=== PATIENT | female | born 1970 | race African-American/Black ===

== ENCOUNTER 2022-05-24 15:25 | Outpatient (CLI) | payer OTHER, SELFPAY ==
[2022-05-24 18:46] LABS: Cholesterol 139 mg/dL (0-200); HDL Direct 46 mg/dL; Triglycerides 173 mg/dL (<150)
[2022-05-24 18:57] LABS: LDL Cholesterol Direct 39 mg/dL
[2022-05-24 20:23] LABS: Hemoglobin A1C 5.1 % (<5.7)
== END 2022-05-24 15:26 | disposition home or self-care (01) ==
LOC: ANHGOSHLAB 15:27
PROVIDERS: PCP Family Medicine; Visit Provider Family Medicine
DX: E66.3 Overweight (principal); E78.2 Mixed hyperlipidemia
CPT/HCPCS: 36415; 80061; 83036

== ENCOUNTER 2022-06-23 01:10 | Day surgery (SDC) | payer MEDICARE, OTHER, SELFPAY ==
[2022-06-09 13:58] VITALS: BMI 29.0
--- NOTE | 2022-06-22 16:21 | PM.HPGS ---
History of Present Illness History of Present Illness Consent: Risks, benefits, and alternatives have been discussed and questions answered. Patient agrees to proceed with procedure. Chief complaint: neoplasm screening Narrative: Umesh Miller is a 51 year old female referred for colon cancer screening. Review of Systems Review of Systems: All systems reviewed & are unremarkable except as noted in HPI and below PMFSH Past Medical History Medical History Chronic kidney disease, stage 5, kidney failure Chronic lupus nephritis Glomerular disorders in diseases classified elsewhere History of 2019 novel coronavirus disease (COVID-19) Hx of blood clots Hypertensive chronic kidney disease with stage 1 through stage 4 chronic kidney disease, or unspecified chronic kidney disease Intractable migraine without aura and without status migrainosus Family History Family History Mother Hypertension Father Family history of type 2 diabetes mellitus Family history of heart disease in male family member before age 55 Social History Social History Smoking status: Never smoker Second hand tobacco smoke exposure: No Alcohol intake: never Substance use type: does not use Living arrangements: alone Spiritual care concerns: No Meds Home Medications and Allergies Home Medications Medication Instructions Recorded Confirmed Type atorvastatin 20 mg tablet 20 mg PO DAILY 09/25/19 06/23/22 History cholecalciferol (vitamin D3) 50 2,000 unit PO DAILY 10/02/19 06/23/22 History mcg (2,000 unit) tablet prednisolone 5 mg tablet 5 mg PO DAILY 10/02/19 06/23/22 History tacrolimus 1 mg capsule, 1 mg PO Q12H 10/02/19 06/23/22 History immediate-release furosemide 80 mg tablet 80 mg PO BID 05/24/22 06/23/22 History carvedilol 25 mg tablet 25 mg PO BID 06/09/22 06/23/22 History cetirizine 10 mg tablet 10 mg PO DAILY PRN Allergy Symptoms 06/09/22 06/23/22 History diltiazem HCl 120 mg 120 mg PO DAILY 06/09/22 06/23/22 History capsule,extended release 12 hr doxazosin 8 mg tablet 8 mg PO DAILY 06/09/22 06/23/22 History Allergies Allergy/AdvReac Type Severity Reaction Status Date / Time CHRIST Inhibitors Allergy Intermediate SWELLING Verified 06/23/22 08:23 ibuprofen Allergy Intermediate UNABLE TO Verified 06/23/22 08:23 TAKE WITH LUPUS NEPHRITIS lisinopril Allergy Unknown Unknown Verified 06/23/22 08:23 Penicillins Allergy Unknown Unknown Verified 06/23/22 08:23 Exam Const: General: alert Orientation/consciousness: patient oriented x3 Resp: Auscultation: clear to auscultation bilaterally Cardio: Rhythm: regular rhythm GI: GI Palp: Yes Soft to palpation and No Tenderness to palpation present (GI) Neuro: General: patient oriented x3 Assessment and Plan Assessment and plan (1) Colon cancer screening: Code(s): Z12.11 - Encounter for screening for malignant neoplasm of colon Status: Acute Assessment and Plan: Colonoscopy with possible biopsy or polypectomy or cautery or injection of substances.
[2022-06-23 08:15] VITALS: BP 114/67; PULSE 74; RESP 18; TEMP 36.1; O2SAT 100; BMI 28.4
[2022-06-23] MEDS: SODIUM CHLORIDE 0.9% IV 500 ML 100 ML IV CONT (08:46)
--- NOTE | 2022-06-23 09:15 | WPDANESEPPF ---
Anes - Initial Pre Proc Eval Procedure: Operation Date: 06/23/22 09:30 Proposed Procedures p Screening Colonoscopy - Dheeraj Kilpatrick MD Date/Time: 06/23/22 09:15 Surgeon: Dheeraj Kilpatrick MD Pre Op Diagnosis: neoplasm screening Patient Data Age: 51 Gender: F Height: 1.57 m Weight: 70.6 kg Last Vital Signs Temp 97.0 F L 06/23/22 08:15 Pulse 74 06/23/22 08:15 Resp 18 06/23/22 08:15 BP 114/67 06/23/22 08:15 Pulse Ox 100 06/23/22 08:15 O2 Del Method Room Air 06/23/22 08:15 Allergies Allergy/AdvReac Type Severity Reaction Status Date / Time CHRIST Inhibitors Allergy Intermediate SWELLING Verified 06/23/22 08:23 ibuprofen Allergy Intermediate UNABLE TO Verified 06/23/22 08:23 TAKE WITH LUPUS NEPHRITIS lisinopril Allergy Unknown Unknown Verified 06/23/22 08:23 Penicillins Allergy Unknown Unknown Verified 06/23/22 08:23 Home Medications Medication Instructions Recorded Confirmed Type atorvastatin 20 mg tablet 20 mg PO DAILY 09/25/19 06/23/22 History cholecalciferol (vitamin D3) 50 2,000 unit PO DAILY 10/02/19 06/23/22 History mcg (2,000 unit) tablet prednisolone 5 mg tablet 5 mg PO DAILY 10/02/19 06/23/22 History tacrolimus 1 mg capsule, 1 mg PO Q12H 10/02/19 06/23/22 History immediate-release furosemide 80 mg tablet 80 mg PO BID 05/24/22 06/23/22 History carvedilol 25 mg tablet 25 mg PO BID 06/09/22 06/23/22 History cetirizine 10 mg tablet 10 mg PO DAILY PRN Allergy Symptoms 06/09/22 06/23/22 History diltiazem HCl 120 mg 120 mg PO DAILY 06/09/22 06/23/22 History capsule,extended release 12 hr doxazosin 8 mg tablet 8 mg PO DAILY 06/09/22 06/23/22 History Patient hx anesthesia problems: none Family hx anesthesia problems: none Results Review: All pre-operative results and documents have been reviewed as part of the pre-operative evaluation. [facility] Past Medical History Medical History Chronic kidney disease, stage 5, kidney failure Chronic lupus nephritis Glomerular disorders in diseases classified elsewhere History of 2019 novel coronavirus disease (COVID-19) Hx of blood clots Hypertensive chronic kidney disease with stage 1 through stage 4 chronic kidney disease, or unspecified chronic kidney disease Intractable migraine without aura and without status migrainosus Family History Family History Mother Hypertension Father Family history of type 2 diabetes mellitus Family history of heart disease in male family member before age 55 Social History Social History Smoking status: Never smoker Second hand tobacco smoke exposure: No Alcohol intake: never Substance use type: does not use Living arrangements: alone Spiritual care concerns: No Anes - Eval Final PreProcedure Day of Procedure 06/23/22 09:15 Patient weight: overweight Heart: regular rate and rhythm Lungs: clear to auscultation Airway: Mallampati scale class II Neurological: alert and oriented Last oral intake: >/= 8 hours ASA classification: III Emergent: no Anesthetic plan: proceed Anesthesia type and monitoring: general GIVS and standard monitoring Results Review: All pre-operative results and documents have been reviewed as part of the pre-operative evaluation. Informed Consent: The patient's anesthetic plan and its attendant risks and benefits were discussed with the patient/family/POA. Questions were solicited and answers provided to the satisfaction of the patient/family/POA.
[2022-06-23 09:50] VITALS: BP 86/54; PULSE 65; RESP 15; O2SAT 100
[2022-06-23 10:00] VITALS: BP 82/46; PULSE 77; RESP 23; O2SAT 100
[2022-06-23 10:10] VITALS: BP 95/42; PULSE 74; RESP 16; O2SAT 100
[2022-06-23 10:14] VITALS: BP 108/87; O2SAT 100
== END 2022-06-23 10:25 | disposition home or self-care (01) ==
PROVIDERS: PCP Family Medicine; Visit Provider Internal Medicine Gastroenterology
PROC: 0DJD8ZZ Inspection of Lower Intestinal Tract, Via Natural or Artificial Opening Endoscopic (ICD-10-PCS; CPT 45378; principal; 2022-06-23 09:30)
DX: Z12.11 Encounter for screening for malignant neoplasm of colon (principal); D12.0 Benign neoplasm of cecum; D12.4 Benign neoplasm of descending colon; D12.3 Benign neoplasm of transverse colon; K64.8 Other hemorrhoids; M32.14 Glomerular disease in systemic lupus erythematosus; Z86.16 Personal history of COVID-19; I12.0 Hypertensive chronic kidney disease with stage 5 chronic kidney disease or end stage renal disease; N18.5 Chronic kidney disease, stage 5
CPT/HCPCS: 45385; 45381; 45380; 88305; J2704; J7040

== ENCOUNTER 2022-09-11 04:41 | Emergency (ER) | payer MEDICARE, OTHER, SELFPAY ==
--- NOTE | ~2022-09-11 | XR_ITS ---
EXAMINATION: XR knee LT 3V DATE: 09/11/2022 06:01 INDICATION: Left knee pain TECHNIQUE: Three views of the left knee were obtained. COMPARISON: None. FINDINGS: Alignment is normal. No fractures identified. Joint spaces are normal with no erosions. Th ere is a moderate size knee joint effusion. There is medial soft tissue swelling of the knee. IMPRESSION: 1. Medial soft tissue swelling of the knee and moderate size joint effusion without acute osseous abn ormality identified. Reviewed, dictated and finalized at location A. [facility] IMPRESSION: 1. Medial soft tissue swelling of the knee and moderate size joint effusion wit hout acute osseous abnormality identified.
[2022-09-11 04:48] VITALS: BP 166/81; PULSE 77; RESP 17; TEMP 36.7; O2SAT 96
--- NOTE | 2022-09-11 05:35 | ED.GENADULT ---
HPI - General Adult General Chief complaint: Extremity Injury, Lower Stated complaint: fall, left leg pain Time Seen by Provider: 09/11/22 04:47 History of Present Illness HPI narrative: 52-year-old female presenting the emergency department for evaluation of an injury to her left knee. Patient states that she injured her knee while walking on carpet. She felt a pop in the left lateral aspect of her left knee. Patient states initially she was able to walk on it but the pain has continued to worsen. Related Data Home Medications Medication Instructions Recorded Confirmed atorvastatin 20 mg tablet 20 mg PO DAILY 09/25/19 09/13/22 cholecalciferol (vitamin D3) 50 2,000 unit PO DAILY 10/02/19 09/13/22 mcg (2,000 unit) tablet prednisolone 5 mg tablet 5 mg PO DAILY 10/02/19 09/13/22 tacrolimus 1 mg capsule, 1 mg PO Q12H 10/02/19 09/13/22 immediate-release furosemide 80 mg tablet 80 mg PO BID 05/24/22 09/13/22 carvedilol 25 mg tablet 25 mg PO BID 06/09/22 09/13/22 cetirizine 10 mg tablet 10 mg PO DAILY PRN Allergy Symptoms 06/09/22 09/13/22 diltiazem HCl 120 mg 120 mg PO DAILY 06/09/22 09/13/22 capsule,extended release 12 hr doxazosin 8 mg tablet 8 mg PO DAILY 06/09/22 09/13/22 biotin 10,000 mcg capsule mcg PO 08/02/22 09/13/22 multivitamin and minerals tablet PO 09/12/22 09/13/22 no.11-folic acid 5 mg tablet (Dialyvite 5000) Allergies Allergy/AdvReac Type Severity Reaction Status Date / Time lisinopril Allergy Severe Swelling Verified 09/13/22 10:37 of Lip/Tongue/Throat Penicillins Allergy Severe Swelling Verified 09/13/22 10:37 of Lip/Tongue/Throat CHRIST Inhibitors Allergy Intermediate SWELLING Verified 09/13/22 10:37 ibuprofen Allergy Intermediate UNABLE TO Verified 09/13/22 10:37 TAKE WITH LUPUS NEPHRITIS Review of Systems Review of Systems: CONSTITUTIONAL: Denies fever, chills, or sweats. EYES: Denies visual changes, redness, or discharge. ENT: Denies rhinorrhea, congestion, sore throat, or otalgia. CARDIOVASCULAR: Denies chest pain, palpitations, or edema. RESPIRATORY: Denies cough or dyspnea. GASTROINTESTINAL: Denies abdominal pain, nausea, vomiting, or diarrhea. GENITOURINARY: Denies dysuria or hematuria. SKIN: Denies rash or itching. MUSCULOSKELETAL: Left knee pain, see HPI NEUROLOGIC: Denies headache, numbness, or weakness. [facility] Past Medical History Medical History Abnormal Pap smear of cervix 07/14/15 lgsil ; 05/08/14 lgsil; 10/16/12 ASCUS / +HPV Allergies Anemia Chronic kidney disease, stage 5, kidney failure Chronic lupus nephritis Dialysis patient renal failure Glomerular disorders in diseases classified elsewhere High cholesterol History of 2019 novel coronavirus disease (COVID-19) History of endometrial biopsy (~01/23/16) menometrorrhagia 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 Hx of blood clots (~12/2012) 3 rt leg, 2 rt arm Hypertensive chronic kidney disease with stage 1 through stage 4 chronic kidney disease, or unspecified chronic kidney disease Intractable migraine without aura and without status migrainosus Screening mammogram, encounter for Trichomonas vaginalis (TV) infection (05/04/16) Surgical History Surgical History H/O LEEP 12/31/15 HGSIL TRAVIS II History of colposcopy with cervical biopsy 12/13/12 TRAVIS I 09/02/15 TRAVIS II 12/09/15 HGSIL History of dilation and curettage (08/03/15) hscope d&c/Novasure endometrial ablation History of elective x2 History of endometrial ablation (08/03/15) hscope d&c/Novasure endometrial ablation History of laparoscopy (03/23/05) dx lap, chromopertubation - bilateral salpinx, pelvic adhesions, left ovarian enlargement, bilaterally blocked fallopian tubes History of left salpingo-oophorectomy (08/31/15) EXP LAP, LSO, ADHESIOLYSIS left dermoid cyst, left & right hydrosalpin
--- NOTE | 2022-09-11 05:50 | PC.NURSE ---
RONEN norco 5/325mg per erp dr [place]
[2022-09-11] MEDS: HYDROcodone/acetaminophen (*CRX) 5-325 MG TABLET 1 TAB PO (05:54)
== END 2022-09-11 06:16 | disposition home or self-care (01) ==
PROVIDERS: Emergency Provider Emergency Medicine; PCP Family Medicine
DX: S89.92XA Unspecified injury of left lower leg, initial encounter (principal); I12.0 Hypertensive chronic kidney disease with stage 5 chronic kidney disease or end stage renal disease; N18.5 Chronic kidney disease, stage 5; M32.14 Glomerular disease in systemic lupus erythematosus; E78.00 Pure hypercholesterolemia, unspecified; Z99.2 Dependence on renal dialysis; Z86.2 Personal history of diseases of the blood and blood-forming organs and certain disorders involving the immune mechanism; Z90.710 Acquired absence of both cervix and uterus; Z94.0 Kidney transplant status; X50.9XXA Other and unspecified overexertion or strenuous movements or postures, initial encounter
CPT/HCPCS: 73562; 99283; A9270

== ENCOUNTER 2022-09-19 14:57 | Outpatient (RCR) | payer MEDICARE, OTHER, SELFPAY ==
--- NOTE | 2022-09-19 17:01 | PTOPEVAL1 ---
Assessment and note entered by Ruben Sher, PT Evaluation Information Assessment Status Evaluation Diagnosis L knee pain Onset 2021 Subjective Information Patient got her foot stuck under her rug and fell in her home. Patient went to the ER where they gave her a knee immobilizer and crutches. She was able to see an orthopedic doctor on Monday and they took away the crutches and knee immobilizer and told her to move the knee. She returned to work although she admits she has been back at work with a reduced activity amount without any pain. Patient reports she has been icing her knee and is feeling well. Reported Pain Level Pain Score 0: Self Report Additional Pain Score Comments no pain prior to evaluation or after evaluation and exercises. Assessment PT Clinical Summary Umesh is a 52 year old female coming into the clinic for L knee pain. She was negative for all special tests applied to the knee. Does have some knee flexion weakness and decreased patellar mobility, but in no pain. Patient sent home with HEP and will do that for 2 weeks along with return to normal job responsibilities. If no pain will discharge if some discomfort will adapt home exercise program to any new signs or symptoms Plan of Care Interventions Electrical Stimulation,Gait Training,Hot Pack/Cold Pack,Manual Therapy,Neuro Re-education,Patient/ Caregiver Education,Therapeutic Activities, Therapeutic Exercise,Ultrasound PT Services Indicated Yes Treatment Frequency and 1x/2weeks then reevaluation Duration These treatments will address the objective and functional deficits as defined above. The patient will be advanced safely and appropriately in order for the patient to progress towards his/her prior level of function. Additional exercises will be introduced and as well as a comprehensive home exercise program upon discharge, if needed, ?to ensure carryover of functional gains achieved in the clinic. This treatment plan has been reviewed and agreement upon by the patient.
--- NOTE | 2022-10-03 10:38 | PTOPDC ---
Assessment and note entered by Ruben Sher, PT Evaluation Information Assessment Status Discharge - Pt Not Presen Diagnosis L knee pain Onset 2021 Subjective Information Patient reports that she has not been consistently doing her exercises everyday, but has been doing them. She also states she is not having trouble with stairs, pain, or any other functional mobility issues at work. She reports she is walking better than she did prior to the accident. Patient feels that she is okay and does not need to do therapy besides the HEP given to her on Sep 19. Reported Pain Level Pain Score 0: Self Report Additional Pain Score Comments no pain at home or at work. Assessment PT Clinical Summary Umesh is a 52 year old female that came into the clinic with L knee pain, which she reports had been feeling and she feels healed up since she scheduled the appointment until she had her evaluation, with the exercises given to the patient to do at home she reports no pain with activities around the home or at work. She feels okay to be discharged from physical therapy and to continue her HEP. Plan of Care PT Services Indicated No Treatment Frequency and discharge from therapy services. Duration
== END 2022-12-05 08:40 | disposition home or self-care (01) ==
LOC: ANHPT 14:57
PROVIDERS: PCP Family Medicine; Visit Provider Nurse Practitioner
DX: M25.562 Pain in left knee (principal)
CPT/HCPCS: 97110; 97161

== ENCOUNTER → 2023-05-30 13:28 | Outpatient (CLI) | payer MEDICARE, OTHER, SELFPAY ==
--- NOTE | ~2023-05-30 | US_ITS ---
EXAMINATION: US thyroid DATE: 05/30/2023 13:45 INDICATION: Nontoxic goiter TECHNIQUE: Multiple ultrasound images of the thyroid were obtained. COMPARISON: None. FINDINGS: The right thyroid lobe measures 4.2 x 1.9 x 2.0 cm. The left thyroid lobe measures 5.1 x 2.2 x 2.2 c m. There are a few scattered small thyroid nodules. The largest is a 1.1 cm wider than tall predomina tely solid hypoechoic nodule in the left thyroid lobe with ill-defined margins (TI-RADS 4, moderately suspicious , FNA if >=1.5 cm, annual followup is >=1 cm). The next largest is a wide than tall 8 mm mixed solid and cystic nodule with hypoechoic solid component and smooth margins (TI-RADS 3, mildly s uspicious , FNA if >=2.5 cm, annual followup is >=1.5 cm). There are a couple additional 5 mm nodules in the left and right thyroid lobes. IMPRESSION: 1. Multinodular goiter. Recommend annual ultrasound follow-up for the 1.1 cm left thyroid nodule. Reviewed, dictated and finalized at location L. IMPRESSION: 1. Multinodular goiter. Recommend annual ultrasound follow-up for the 1.1 cm le ft thyroid nodule.
== END ==
PROVIDERS: PCP Family Medicine; Visit Provider Family Medicine
DX: E04.9 Nontoxic goiter, unspecified (principal)
CPT/HCPCS: 76536

== ENCOUNTER 2024-08-09 04:17 | Day surgery (SDC) | payer MEDICARE, OTHER, SELFPAY ==
[2024-07-29 10:53] VITALS: BMI 25.7
[2024-08-09 09:34] VITALS: BP 142/71; PULSE 61; RESP 20; TEMP 36; O2SAT 100; BMI 25.2
[2024-08-09] MEDS: SODIUM CHLORIDE 0.9% IV 500 ML 10 ML IV CONT (09:45)
--- NOTE | 2024-08-09 10:30 | WPDANESEPPF ---
Anes - Initial Pre Proc Eval Procedure: Operation Date: 08/09/24 11:00 Proposed Procedures p Colonoscopy - Javier Louis MD Date/Time: 08/09/24 10:30 Surgeon: Javier Louis MD Pre Op Diagnosis: hem of anus and rectum Patient Data Age: 54 Gender: F Height: 1.6 m Weight: 64.5 kg Last Vital Signs Temp 96.8 F L 08/09/24 09:34 Pulse 61 08/09/24 09:34 Resp 20 08/09/24 09:34 BP 142/71 H 08/09/24 09:34 Pulse Ox 100 08/09/24 09:34 O2 Del Method Room Air 08/09/24 09:34 Allergies Allergy/AdvReac Type Severity Reaction Status Date / Time lisinopril Allergy Severe Swelling Verified 08/09/24 09:33 of Lip/Tongue/Throat Penicillins Allergy Severe Swelling Verified 08/09/24 09:33 of Lip/Tongue/Throat CHRIST Inhibitors Allergy Intermediate SWELLING Verified 08/09/24 09:33 ibuprofen Allergy Intermediate UNABLE TO Verified 08/09/24 09:33 TAKE WITH LUPUS NEPHRITIS Home Medications Medication Instructions Recorded Confirmed Type cholecalciferol (vitamin D3) 50 2,000 unit PO DAILY 10/02/19 08/09/24 History mcg (2,000 unit) tablet prednisolone 5 mg tablet 5 mg PO DAILY 10/02/19 08/09/24 History tacrolimus 1 mg capsule, 1 mg PO Q12H 10/02/19 08/09/24 History immediate-release furosemide 80 mg tablet 80 mg PO BID 05/24/22 08/09/24 History cetirizine 10 mg tablet 10 mg PO DAILY PRN Allergy Symptoms 06/09/22 08/09/24 History diltiazem HCl 120 mg 120 mg PO DAILY 06/09/22 08/09/24 History capsule,extended release 12 hr doxazosin 8 mg tablet 8 mg PO DAILY 06/09/22 08/09/24 History biotin 10,000 mcg capsule 10,000 mcg PO DAILY 08/02/22 08/09/24 History multivitamin and minerals 1 tablet PO DAILY 09/12/22 08/09/24 History no.11-folic acid 5 mg tablet (Dialyvite 5000) atorvastatin 20 mg tablet 20 mg PO DAILY #90 tabs 02/08/24 08/09/24 Rx carvedilol 25 mg tablet 25 mg PO BID #60 tabs 05/09/24 08/09/24 Rx Patient hx anesthesia problems: none Family hx anesthesia problems: none Results Review: All pre-operative results and documents have been reviewed as part of the pre-operative evaluation. [facility] Past Medical History Medical History Abnormal Pap smear of cervix 07/14/15 lgsil ; 05/08/14 lgsil; 10/16/12 ASCUS / +HPV Allergies Anemia Chronic kidney disease, stage 5, kidney failure Chronic lupus nephritis Dialysis patient renal failure Glomerular disorders in diseases classified elsewhere High cholesterol History of 2019 novel coronavirus disease (COVID-19) History of endometrial biopsy (~01/23/16) menometrorrhagia 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 Hx of blood clots (~12/2012) 3 rt leg, 2 rt arm Hypertensive chronic kidney disease with stage 1 through stage 4 chronic kidney disease, or unspecified chronic kidney disease Intractable migraine without aura and without status migrainosus Screening mammogram, encounter for Trichomonas vaginalis (TV) infection (05/04/16) Surgical History Surgical History H/O LEEP 12/31/15 HGSIL TRAVIS II History of colposcopy with cervical biopsy 12/13/12 TRAVIS I 09/02/15 TRAVIS II 12/09/15 HGSIL History of dilation and curettage (08/03/15) hscope d&c/Novasure endometrial ablation History of elective x2 History of endometrial ablation (08/03/15) hscope d&c/Novasure endometrial ablation History of laparoscopy (03/23/05) dx lap, chromopertubation - bilateral salpinx, pelvic adhesions, left ovarian enlargement, bilaterally blocked fallopian tubes History of left salpingo-oophorectomy (08/31/15) EXP LAP, LSO, ADHESIOLYSIS left dermoid cyst, left & right hydrosalpinx History of ovarian cystectomy (07/11/07) EXP LAP; RIGHT OVARIAN CYSTECTOMY, R PARTIAL SALPINGECTOMY - R Ovarian Cyst, R hydrosalpinx History of robot-assisted laparoscopic hysterectomy RA TLH w/RSO--HGSIL,
--- NOTE | 2024-08-09 10:42 | PM.HPGS ---
History of Present Illness History of Present Illness Consent: Risks, benefits, and alternatives have been discussed and questions answered. Patient agrees to proceed with procedure. Chief complaint: hem of anus and rectum Narrative: Umesh Miller is a 54 year old female with last colonoscopy 2 years ago, recently noted blood in stool Review of Systems Review of Systems: All systems reviewed & are unremarkable except as noted in HPI and below PMFSH Past Medical History Medical History (Updated 08/09/24 @ 10:45 by Javier Louis MD) Abnormal Pap smear of cervix 07/14/15 lgsil ; 05/08/14 lgsil; 10/16/12 ASCUS / +HPV Allergies Anemia Chronic kidney disease, stage 5, kidney failure Chronic lupus nephritis Dialysis patient renal failure Glomerular disorders in diseases classified elsewhere High cholesterol History of 2019 novel coronavirus disease (COVID-19) History of endometrial biopsy (~01/23/16) menometrorrhagia 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 Hx of blood clots (~12/2012) 3 rt leg, 2 rt arm Hypertensive chronic kidney disease with stage 1 through stage 4 chronic kidney disease, or unspecified chronic kidney disease Intractable migraine without aura and without status migrainosus Rectal bleeding Screening mammogram, encounter for Trichomonas vaginalis (TV) infection (05/04/16) Surgical History Surgical History H/O LEEP 12/31/15 HGSIL TRAVIS II History of colposcopy with cervical biopsy 12/13/12 TRAVIS I 09/02/15 TRAVIS II 12/09/15 HGSIL History of dilation and curettage (08/03/15) hscope d&c/Novasure endometrial ablation History of elective x2 History of endometrial ablation (08/03/15) hscope d&c/Novasure endometrial ablation History of laparoscopy (03/23/05) dx lap, chromopertubation - bilateral salpinx, pelvic adhesions, left ovarian enlargement, bilaterally blocked fallopian tubes History of left salpingo-oophorectomy (08/31/15) EXP LAP, LSO, ADHESIOLYSIS left dermoid cyst, left & right hydrosalpinx History of ovarian cystectomy (07/11/07) EXP LAP; RIGHT OVARIAN CYSTECTOMY, R PARTIAL SALPINGECTOMY - R Ovarian Cyst, R hydrosalpinx History of robot-assisted laparoscopic hysterectomy RA TLH w/RSO--HGSIL, ovarian cyst, leiomyoma History of total hysterectomy February 2017 Kidney transplant recipient (~08/2019) Family History Family History Mother Hypertension Father Family history of type 2 diabetes mellitus Family history of heart disease in male family member before age 55 Cerebrovascular accident Hypertension Diabetes mellitus Other Cancer Diabetes mellitus Hypertension Family history of heart disease in male family member before age 55 Social History Social History Smoking status: Never smoker Second hand tobacco smoke exposure: No Alcohol intake: never Substance use: never Substance use type: does not use Living arrangements: alone Additional living arrangements comments: Occupation/Education: occupation Additional 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 [employer] Gender identity (if verbalized by the patient): Female Sexual Orientation (if Verbalized by the Patient): Straight or Heterosexual Spiritual care concerns: No Meds Home Medications and Allergies Home Medications Medication Instructions Recorded Confirmed Type cholecalciferol (vitamin D3) 50 2,000 unit PO DAILY 10/02/19 08/09/24 History mcg (2,000 unit) tablet prednisolone 5 mg tablet 5 mg PO DAILY 10/02/19 08/09/24 History tacrolimus 1 mg capsule, 1 mg PO Q12H 10/02/19 08/09/24 History immediate-release furosemide 80 mg tablet 80 mg PO BID 05/24/22 08/09/24 History cetirizine 10 mg tablet 10 mg PO DAILY PRN Allergy Symptoms 06/09/22 08/09/24 History diltiazem HCl 120 mg 120 mg PO DA
[2024-08-09 11:36] VITALS: BP 152/71; PULSE 59; RESP 13; O2SAT 100
[2024-08-09 11:46] VITALS: BP 132/81; PULSE 60; RESP 16; O2SAT 96
[2024-08-09 11:56] VITALS: BP 147/68; PULSE 60; RESP 18; O2SAT 100
== END 2024-08-09 12:11 | disposition home or self-care (01) ==
PROVIDERS: PCP Family Medicine; Visit Provider Internal Medicine Gastroenterology
PROC: 0DJD8ZZ Inspection of Lower Intestinal Tract, Via Natural or Artificial Opening Endoscopic (ICD-10-PCS; CPT 45378; principal; 2024-08-09 11:00)
DX: D12.0 Benign neoplasm of cecum (principal); D12.2 Benign neoplasm of ascending colon; D12.3 Benign neoplasm of transverse colon; I12.0 Hypertensive chronic kidney disease with stage 5 chronic kidney disease or end stage renal disease; N18.5 Chronic kidney disease, stage 5; Z99.2 Dependence on renal dialysis; D63.1 Anemia in chronic kidney disease; M32.14 Glomerular disease in systemic lupus erythematosus; E78.00 Pure hypercholesterolemia, unspecified; Z86.718 Personal history of other venous thrombosis and embolism; Z94.0 Kidney transplant status; Z79.621 Long term (current) use of calcineurin inhibitor
CPT/HCPCS: 45385; 88305; J2003; J2704; J7040; J7050

== ENCOUNTER 2024-09-16 15:03 | Emergency (ER) | payer MEDICARE, OTHER, SELFPAY ==
[2024-09-16] VITALS (8 sets, daily range): BP systolic 102–152; BP diastolic 53–76; PULSE 69–87; RESP 14–20; TEMP 36.6–37.6; O2SAT 97–100
--- NOTE | 2024-09-16 16:26 | ED_ITS ---
HPI - Recheck/Abnormal Lab/Rx General Chief Complaint: Recheck/Abnormal Lab/Rx <Katherine Manuel PA-C - Last Filed: 09/16/24 16:40> Stated Complaint: I need a blood transfusion <JUAN Green Last Filed: 16:40> Time Seen by Provider: 09/16/24 16:26 <JUAN Green Last Filed: 09/16/24 16:40> Focused HPI: Patient is a 54 y/o female, with PMH of SLE, lupus nephritis, s/p renal transplant on Tacrolimus, ESRD on HD, who presents to the ED with c/o low hemoglobin. Patient receives hemodialysis Fridays. She sees Dr. Swain. states today at her normal appointment, she was told that her hemoglobin was 6.7 last Monday. She received her full dialysis treatment today and then was referred to the ED for further evaluation. Patient reports remote history of blood transfusions. She does admit that she has been feeling fatigued recently. Denies recent bleeding, rectal bleeding, melena, epistaxis. Patient had a colonoscopy 08/09 which was normal. GENERAL: Well-appearing, well-nourished, and in no acute distress. HEAD: Normocephalic, atraumatic. CHEST: Clear to auscultation. ?No respiratory distress. HEART: Regular rate and rhythm.? NEURO: ?Alert and oriented x3. Patient screened in triage and initial orders placed.? ?Additional care and dis position to be based upon?diagnostic testing and treatment. <JUAN Green Last Filed: 09/16/24 16:40> Focused HPI: Patient is a 54 y/o female, with PMH of SLE, lupus nephritis, s/p renal transplant on Tacrolimus, ESRD on HD, who presents to the ED with c/o low hemoglobin. Patient receives hemodialysis Fridays. She sees Dr. Swain. states today at her normal appointment, she was told that her hemoglobin was 6.7 last Monday. She received her full dialysis treatment today and then was referred to the ED for further evaluation. Patient reports remote history of blood transfusions. She does admit that she has been feeling fatigued recently. Denies recent bleeding, rectal bleeding, melena, epistaxis. Patient had a colonoscopy 08/09 which was normal. GENERAL: Well-appearing, well-nourished, and in no acute distress. HEAD: Normocephalic, atraumatic. CHEST: Clear to auscultation. ?No respiratory distress. HEART: Regular rate and rhythm.? NEURO: ?Alert and oriented x3. Patient screened in triage and initial orders placed.? ?Additional care and disposition to be based upon?diagnostic testing and treatment. <Belén Leigh PA-C - Last Filed: 09/16/24 20:47> Source: patient <JUAN Green Last Filed: 09/16/24 16:40> Mode of arrival: ambulatory <JUAN Green Last Filed: 09/16/24 16:40> Limitations: no limitations <JUAN Green Last Filed: 09/16/24 16:40> History of Present Illness HPI narrative: Agree with the above triage note. Patient reports last blood transfusion was in 2013. Denies history of transfusion reactions. States she had a viral URI approximately 2 weeks ago and is starting to feel better. States she had some blood in her stool over a month ago and had a colonoscopy which showed some polyps but otherwise was unremarkable. She states she has not had any blood in her stools for over a month. <Belén Leigh PA-C - Last Filed: 09/16/24 20:47> Related Data Home Medications: Home Medications Medication Instructions Recorded Confirmed cholecalciferol (vitamin D3) 50 2,000 unit PO DAILY 10/02/19 08/09/24 mcg (2,000 unit) tablet prednisolone 5 mg tablet 5 mg PO DAILY 10/02/19 08/09/24 tacrolimus 1 mg capsule, 1 mg PO Q12H 10/02/19 08/09/24 immediate-release furosemide 80 mg tablet 80 mg PO BID 05/24/22 08/09/24 cetirizine 10 mg tablet 10 mg PO DAILY PRN Allergy Symptoms 06/09/22 08/09/24 doxazosin 8 mg tablet 8 mg PO DAILY 06/09/22 08/09/24 biotin 10,000 mcg capsule 10,000 mcg PO DAILY 08/02/22 08/09/24 multivitamin and minerals 1 tablet PO DAILY 09/12/22 08/09/24 no.11-folic acid 5 mg tablet (Dialyvite 5000) <Katherine Manuel PA-C - Last Filed: 09/16/24 16:40> Allergies/Adverse Reactions: Allergies Allergy/AdvReac Type Severity Reaction Status Date / Time lisinopril Allergy Severe Swelling Verified 09/16/24 15:11 of Lip/Tongue/Throat Penicillins Allergy Severe Swelling Verified 09/16/24 15:11 of Lip/Tongue/Throat CHRIST Inhibitors Allergy Intermediate SWELLING Verified 09/16/24 15:11 ibuprofen Allergy Intermediate UNABLE TO Verified 09/16/24 15:11 TAKE WITH LUPUS NEPHRITIS <Katherine Manuel PA-C - Last Filed: 09/16/24 16:40> Review of Systems Review of Systems: All systems reviewed & are unremarkable except as noted in HPI and below <Belén Leigh PA-C - Last Filed: 09/16/24 20:47> [facility] Past Medical History Medical History: Medical History Abnormal Pap smear of cervix 07/14/15 lgsil ; 05/08/14 lgsil; 10/16/12 ASCUS / +HPV Allergies Anemia Chronic kidney disease, stage 5, kidney failure Chronic lupus nephritis Dialysis patient renal failure Glomerular disorders in diseases classified elsewhere High cholesterol History of 2019 novel coronavirus disease (COVID-19) History of endometrial biopsy (~01/23/16) menometrorrhagia 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 Hx of blood clots (~12/2012) 3 rt leg, 2 rt arm Hypertensive chronic kidney disease with stage 1 through stage 4 chronic kidney disease, or unspecified chronic kidney disease Intractable migraine without aura and without status migrainosus Rectal bleeding Screening mammogram, encounter for Trichomonas vaginalis (TV) infection (05/04/16) <Katherine Manuel PA-C - Last Filed: 09/16/24 16:40> Surgical History Surgical History: Surgical History H/O LEEP 12/31/15 HGSIL TRAVIS II History of colposcopy with cervical biopsy 12/13/12 TRAVIS I 09/02/15 TRAVIS II 12/09/15 HGSIL History of dilation and curettage (08/03/15) hscope d&c/Novasure endometrial ablation History of elective x2 History of endometrial ablation (08/03/15) hscope d&c/Novasure endometrial ablation History of laparoscopy (03/23/05) dx lap, chromopertubation - bilateral salpinx, pelvic adhesions, left ovarian enlargement, bilaterally blocked fallopian tubes History of left salpingo-oophorectomy (08/31/15) EXP LAP, LSO, ADHESIOLYSIS left dermoid cyst, left & right hydrosalpinx History of ovarian cystectomy (07/11/07) EXP LAP; RIGHT OVARIAN CYSTECTOMY, R PARTIAL SALPINGECTOMY - R Ovarian Cyst, R hydrosalpinx History of robot-assisted laparoscopic hysterectomy RA TL w/RSO--HGSIL, ovarian cyst, leiomyoma History of total hysterectomy February 2017 Kidney transplant recipient (~08/2019) <Katherine Manuel PA-C - Last Filed: 09/16/24 16:40> Family History Family History: Family History Mother Hypertension Father Family history of type 2 diabetes mellitus Family history of heart disease in male family member before age 55 Cerebrovascular accident Hypertension Diabetes mellitus Other Cancer Diabetes mellitus Hypertension Family history of heart disease in male family member before age 55 <Katherine Manuel PA-C - Last Filed: 09/16/24 16:40> Social History Social History: Social History Smoking status: Never smoker Second hand tobacco smoke exposure: No Alcohol intake: never Substance use: never Substance use type: does not use Living arrangements: alone Additional living arrangements comments: Occupation/Education: occupation Additional 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 HEAD: Normocephalic, atraumatic. EYES: EOMI. ENT: Nares clear, no rhinorrhea or epistaxis. Mucous membranes moist. NECK: Supple. CHEST: Clear to auscultation. No respiratory distress. HEART: Regular rate and rhythm. No murmur heard. Normal peripheral pulses. ABDOMEN: Soft, nontender, nondistended, normal active bowel sounds. EXTREMITIES: Normal range of motion. No edema. Hemodialysis fistula in the left upper extremity SKIN: Warm, dry, no rash. NEURO: No focal deficits. Alert and oriented x3 <Belén Leigh PA-C - Last Filed: 09/16/24 20:47> Course ENGINE PILOT/PA Physician Supervision For this patient encounter, I reviewed the ENGINE PILOT or PA documentation, treatment plan, and medical decision making; and I had [id number] time with this patient. <Can Camacho MD - Last Filed: 09/17/24 08:05> Vital Signs Vital signs: Vital Signs Temperature 98.3 F 09/16/24 15:05 Pulse Rate 87 09/16/24 15:05 Respiratory Rate 15 09/16/24 15:05 Blood Pressure 114/53 L 09/16/24 15:05 Pulse Oximetry 97 09/16/24 15:05 Oxygen Delivery Room Air 09/16/24 15:05 Temperature 97.8 F 09/16/24 20:31 Pulse Rate 69 09/16/24 20:31 Respiratory Rate 17 09/16/24 20:31 Blood Pressure 152/76 H 09/16/24 20:31 Pulse Oximetry 100 09/16/24 20:31 Oxygen Delivery Room Air 09/16/24 15:05 <Katherine Manuel PA-C - Last Filed: 09/16/24 16:40> Vital Signs Temperature 98.3 F 09/16/24 15:05 Pulse Rate 87 09/16/24 15:05 Respiratory Rate 15 09/16/24 15:05 Blood Pressure 114/53 L 09/16/24 15:05 Pulse Oximetry 97 09/16/24 15:05 Oxygen Delivery Room Air 09/16/24 15:05 Temperature 97.8 F 09/16/24 20:31 Pulse Rate 69 09/16/24 20:31 Respiratory Rate 17 09/16/24 20:31 Blood Pressure 152/76 H 09/16/24 20:31 Pulse Oximetry 100 09/16/24 20:31 Oxygen Delivery Room Air 09/16/24 15:05 <Belén Leigh PA-C - Last Filed: 09/16/24 20:47> Vital Signs Temperature 98.3 F 09/16/24 15:05 Pulse Rate 87 09/16/24 15:05 Respiratory Rate 15 09/16/24 15:05 Blood Pressure 114/53 L 09/16/24 15:05 Pulse Oximetry 97 09/16/24 15:05 Oxygen Delivery Room Air 09/16/24 15:05 Temperature 97.8 F 09/16/24 20:31 Pulse Rate 69 09/16/24 20:31 Respiratory Rate 17 09/16/24 20:31 Blood Pressure 152/76 H 09/16/24 20:31 Pulse Oximetry 100 09/16/24 20:31 Oxygen Delivery Room Air 09/16/24 15:05 <Can Camacho MD - Last Filed: 09/17/24 08:05> MDM - Recheck/Abnormal Lab/Rx MDM Narrative Medical decision making narrative: MSE by AGUSTIN in triage. <Katherine Manuel PA-C - Last Filed: 09/16/24 16:40> MSE by AGUSTIN in triage. 54-year-old female with history of of SLE, lupus nephritis, s/p renal transplant on Tacrolimus, ESRD on HD, who presents to the ED with c/o low hemoglobin. Patient reports some fatigue but is otherwise asymptomatic. She denies signs or symptoms of a GI bleed. Hemoglobin here 6.7 with normal MCV. Platelets are chronically low at 143. Her chemistries reveal hypokalemia of 2.3, chloride of 93, bicarb of 40. Creatinine consistent with CKD. Patient was given a unit of blood and states she feels better. No infusion reactions appreciated. I did consider giving potassium repletion, however given she had hemodialysis today has a history of CKD, expect this will increase naturally. Additionally potassium likely increased after blood transfusion given expected hemolysis. Advised to follow closely with her residential building inspector and discussed strict ED return precautions. She is agreeable with the plan verbalized understanding. Discharged in stable condition. <Belén Leigh PA-C - Last Filed: 09/16/24 20:47> Lab Data Result diagrams: 09/16/24 16:37 09/16/24 16:37 <Katherine Manuel PA-C - Last Filed: 09/16/24 16:40> Labs: Lab Results 09/16/24 Range/Units 16:37 WBC 6.6 (4.5-10.0) K/mm3 RBC 2.32 L (4.2-5.4) M/mm3 Hgb 6.7 L* (12.0-15.0) g/dL Hct 20.7 L* (37.0-47.0) % MCV 89.2 (80-100) fl MCH 28.9 (26-34) pg MCHC 32.4 (32-36) g/dl RDW 16.3 H (11.5-14.5) % Plt Count 143 L (150-375) k/mm3 MPV 10.3 (7.4-10.4) fl Immature Gran % (Auto) 0.3 (0-0.5) % Neut % (Auto) 81.0 H (45.5-73.1) % Lymph % (Auto) 7.9 L (18.3-44.2) % [place] % (Auto) 10.8 H (2.6-8.5) % Eos % (Auto) 0.0 (0-4.4) % Baso % (Auto) 0.0 L (0.2-1.2) % Lymph # (Auto) 0.52 L (0.9-3.2) K/mm3 [place] # (Auto) 0.7 H (0.1-0.6) K/mm3 Eos # (Auto) 0.0 (0-0.3) K/mm3 Baso # (Auto) 0.0 (0.0-0.1) K/mm3 Abs Immat Gran (auto) 0.02 (0.00-0.031) K/mm3 Absolute Neuts (auto) 5.3 (1.3-6.7) K/mm3 Absolute Nucleated RBC 0.000 (0.0-0.012) K/mm3 Nucleated RBC % 0.0 (0.0-0.2) % % Immature Plt Fraction 3.3 (0.9-11.2) % PT 14.5 (11.1-14.7) Seconds INR 1.1 APTT 29.9 (22.3-36.8) Seconds Sodium 135 L (137-145) mmol/L Potassium 2.8 L* (3.4-5.0) mmol/L Chloride 93 L (98-107) mmol/L Carbon Dioxide > 40 H (22-30) mmol/L Anion Gap (4-12) mmol/L BUN 7 (7-17) mg/dL Creatinine 3.30 H (0.7-1.0) mg/dL Estim Creat Clear Calc 15 ml/min Estimated GFR 18 L (59 - ) Glucose 180 H (65-110) mg/dL Calcium 8.0 L (8.4-10.2) mg/dL Total Bilirubin 0.7 (0.2-1.3) mg/dL AST 33 (14-36) U/L ALT 15 (6-35) U/L Alkaline Phosphatase 126 (38-126) U/L Total Protein 8.0 (6.3-8.2) g/dL Albumin 3.1 L (3.5-5.1) g/dL Blood Type B Positive Antibody Screen Negative Crossmatch See Detail <Katherine Manuel PA-C - Last Filed: 09/16/24 16:40> Lab Results 09/16/24 Range/Units 16:37 WBC 6.6 (4.5-10.0) K/mm3 RBC 2.32 L (4.2-5.4) M/mm3 Hgb 6.7 L* (12.0-15.0) g/dL Hct 20.7 L* (37.0-47.0) % MCV 89.2 (80-100) fl MCH 28.9 (26-34) pg MCHC 32.4 (32-36) g/dl RDW 16.3 H (11.5-14.5) % Plt Count 143 L (150-375) k/mm3 MPV 10.3 (7.4-10.4) fl Immature Gran % (Auto) 0.3 (0-0.5) % Neut % (Auto) 81.0 H (45.5-73.1) % Lymph % (Auto) 7.9 L (18.3-44.2) % [place] % (Auto) 10.8 H (2.6-8.5) % Eos % (Auto) 0.0 (0-4.4) % Baso % (Auto) 0.0 L (0.2-1.2) % Lymph # (Auto) 0.52 L (0.9-3.2) K/mm3 [place] # (Auto) 0.7 H (0.1-0.6) K/mm3 Eos # (Auto) 0.0 (0-0.3) K/mm3 Baso # (Auto) 0.0 (0.0-0.1) K/mm3 Abs Immat Gran (auto) 0.02 (0.00-0.031) K/mm3 Absolute Neuts (auto) 5.3 (1.3-6.7) K/mm3 Absolute Nucleated RBC 0.000 (0.0-0.012) K/mm3 Nucleated RBC % 0.0 (0.0-0.2) % % Immature Plt Fraction 3.3 (0.9-11.2) % PT 14.5 (11.1-14.7) Seconds INR 1.1 APTT 29.9 (22.3-36.8) Seconds Sodium 135 L (137-145) mmol/L Potassium 2.8 L* (3.4-5.0) mmol/L Chloride 93 L (98-107) mmol/L Carbon Dioxide > 40 H (22-30) mmol/L Anion Gap (4-12) mmol/L BUN 7 (7-17) mg/dL Creatinine 3.30 H (0.7-1.0) mg/dL Estim Creat Clear Calc 15 ml/min Estimated GFR 18 L (59 - ) Glucose 180 H (65-110) mg/dL Calcium 8.0 L (8.4-10.2) mg/dL Total Bilirubin 0.7 (0.2-1.3) mg/dL AST 33 (14-36) U/L ALT 15 (6-35) U/L Alkaline Phosphatase 126 (38-126) U/L Total Protein 8.0 (6.3-8.2) g/dL Albumin 3.1 L (3.5-5.1) g/dL Blood Type B Positive Antibody Screen Negative Crossmatch See Detail <Belén Leigh PA-C - Last Filed: 09/16/24 20:47> Lab Results 09/16/24 Range/Units 16:37 WBC 6.6 (4.5-10.0) K/mm3 RBC 2.32 L (4.2-5.4) M/mm3 Hgb 6.7 L* (12.0-15.0) g/dL Hct 20.7 L* (37.0-47.0) % MCV 89.2 (80-100) fl MCH 28.9 (26-34) pg MCHC 32.4 (32-36) g/dl RDW 16.3 H (11.5-14.5) % Plt Count 143 L (150-375) k/mm3 MPV 10.3 (7.4-10.4) fl Immature Gran % (Auto) 0.3 (0-0.5) % Neut % (Auto) 81.0 H (45.5-73.1) % Lymph % (Auto) 7.9 L (18.3-44.2) % [place] % (Auto) 10.8 H (2.6-8.5) % Eos % (Auto) 0.0 (0-4.4) % Baso % (Auto) 0.0 L (0.2-1.2) % Lymph # (Auto) 0.52 L (0.9-3.2) K/mm3 [place] # (Auto) 0.7 H (0.1-0.6) K/mm3 Eos # (Auto) 0.0 (0-0.3) K/mm3 Baso # (Auto) 0.0 (0.0-0.1) K/mm3 Abs Immat Gran (auto) 0.02 (0.00-0.031) K/mm3 Absolute Neuts (auto) 5.3 (1.3-6.7) K/mm3 Absolute Nucleated RBC 0.000 (0.0-0.012) K/mm3 Nucleated RBC % 0.0 (0.0-0.2) % % Immature Plt Fraction 3.3 (0.9-11.2) % PT 14.5 (11.1-14.7) Seconds INR 1.1 APTT 29.9 (22.3-36.8) Seconds Sodium 135 L (137-145) mmol/L Potassium 2.8 L* (3.4-5.0) mmol/L Chloride 93 L (98-107) mmol/L Carbon Dioxide > 40 H (22-30) mmol/L Anion Gap (4-12) mmol/L BUN 7 (7-17) mg/dL Creatinine 3.30 H (0.7-1.0) mg/dL Estim Creat Clear Calc 15 ml/min Estimated GFR 18 L (59 - ) Glucose 180 H (65-110) mg/dL Calcium 8.0 L (8.4-10.2) mg/dL Total Bilirubin 0.7 (0.2-1.3) mg/dL AST 33 (14-36) U/L ALT 15 (6-35) U/L Alkaline Phosphatase 126 (38-126) U/L Total Protein 8.0 (6.3-8.2) g/dL Albumin 3.1 L (3.5-5.1) g/dL Blood Type B Positive Antibody Screen Negative Crossmatch See Detail <Can Camacho MD - Last Filed: 09/17/24 08:05> Discharge Plan Discharge Clinical Impression: Anemia due to chronic kidney disease, Acute hypokalemia <Katherine Manuel PA-C - Last Filed: 09/16/24 16:40> Patient Disposition: Home, Self-Care <Katherine Manuel PA-C - Last Filed: 09/16/24 16:40> Condition: Stable <Katherine Manuel PA-C - Last Filed: 09/16/24 16:40> Instructions: Antibiotic Form, Chronic Kidney Disease (ED), Hypokalemia (ED), Blood Transfusion (DC) <Katherine Manuel PA-C - Last Filed: 09/16/24 16:40> Additional Instructions: Your evaluated in the emergency department for low hemoglobin. Your given a unit of blood. Please follow-up closely with your residential building inspector and PCP. Return to the emergency department if you develop chest pain, shortness of breath, lightheadedness or loss of consciousness, blood in your stool or other concerning symptoms. <Katherine Manuel PA-C - Last Filed: 09/16/24 16:40> Prescriptions: No Action biotin 10,000 mcg capsule 10,000 mcg PO DAILY furosemide 80 mg tablet 80 mg PO BID Patient Comments: on days she does not have dialysis Rx Instructions: On non HD days cholecalciferol (vitamin D3) 2,000 unit tablet 2,000 unit PO DAILY prednisolone 5 mg tablet 5 mg PO DAILY tacrolimus 1 mg capsule 1 mg PO Q12H Dialyvite 5000 5 mg tablet 1 tablet PO DAILY doxazosin 8 mg tablet 8 mg PO DAILY cetirizine 10 mg tablet 10 mg PO DAILY PRN (Reason: Allergy Symptoms) atorvastatin 20 mg tablet 20 mg PO DAILY Qty: 90 3RF Rx Instructions: TAKE 1 TABLET BY MOUTH EVERY DAY carvedilol 25 mg tablet 25 mg PO BID Qty: 60 11RF diltiazem HCl 120 mg capsule,extended release 24hr See Rx Instructions .ROUTE .COMPLEX Qty: 90 4RF Dose Instruction: TAKE 1 CAPSULE BY MOUTH EVERY DAY Rx Instructions: TAKE 1 CAPSULE BY MOUTH EVERY DAY <Katherine Manuel PA-C - Last Filed: 09/16/24 16:40> Follow-up/Referrals: Edwardo Swain MD [Physician] - 1 Day Vinny Lugo DO [Primary Care Provider] - <Katherine Manuel PA-C - Last Filed: 09/16/24 16:40>
[2024-09-16 16:47] LABS: Immature Granulocyte Absolute 0.02 K/mm3 (0.00-0.031); Immature Granulocyte Percent A 0.3 % (0-0.5); Immature Platelet Fraction Pct 3.3 % (0.9-11.2); Lymphocytes Absolute Auto 0.52 K/mm3 (0.9-3.2); Lymphocytes Percent Auto 7.9 % (18.3-44.2); Mean Corpuscular HGB Conc 32.4 g/dl (32-36); Mean Corpuscular Hemoglobin 28.9 pg (26-34); Mean Corpuscular Volume 89.2 fl (80-100); Mean Platelet Volume 10.3 fl (7.4-10.4); Monocytes Absolute Auto 0.7 K/mm3 (0.1-0.6); Monocytes Percent Auto 10.8 % (2.6-8.5); Neutrophils Absolute Auto 5.3 K/mm3 (1.3-6.7); Platelet Count Result 143 k/mm3 (150-375); Red Blood Count 2.32 M/mm3 (4.2-5.4); Red Cell Distribution Width 16.3 % (11.5-14.5); White Blood Count 6.6 K/mm3 (4.5-10.0)
[2024-09-16 16:48] LABS: Hemoglobin 6.7 g/dL (12.0-15.0)
[2024-09-16 16:49] LABS: Hematocrit 20.7 % (37.0-47.0)
[2024-09-16 17:00] LABS: INR 1.1; Partial Thromboplastin Time 29.9 Seconds (22.3-36.8); Prothrombin Time 14.5 Seconds (11.1-14.7)
[2024-09-16 17:06] LABS: Alanine Aminotransferase 15 U/L (6-35); Albumin Level 3.1 g/dL (3.5-5.1); Alkaline Phosphatase 126 U/L (38-126); Aspartate Amino Transferase 33 U/L (14-36); Bilirubin,Total 0.7 mg/dL (0.2-1.3); Blood Urea Nitrogen 7 mg/dL (7-17); Carbon Dioxide > 40 mmol/L (22-30); Chloride 93 mmol/L (98-107); Estimated CRCL calculation 15 ml/min; Estimated Glomerular Filt Rate 18; Glucose 180 mg/dL (65-110); Potassium 2.8 mmol/L (3.4-5.0); Sodium 135 mmol/L (137-145)
[2024-09-16] MEDS: SODIUM CHLORIDE 0.9% IV 250 ML 30 ML IV CONT (18:46)
[2024-09-16] MEDS: TUBING, BLOOD SET 1 EACH XX (18:47)
== END 2024-09-16 21:15 | disposition home or self-care (01) ==
PROVIDERS: Physician Assistant; Emergency Provider Physician Assistant; PCP Family Medicine
DX: N18.5 Chronic kidney disease, stage 5 (principal); D63.1 Anemia in chronic kidney disease; E87.6 Hypokalemia; I12.0 Hypertensive chronic kidney disease with stage 5 chronic kidney disease or end stage renal disease; Z99.2 Dependence on renal dialysis; M32.14 Glomerular disease in systemic lupus erythematosus; Z94.0 Kidney transplant status; E78.00 Pure hypercholesterolemia, unspecified; Z86.16 Personal history of COVID-19; Z79.899 Other long term (current) drug therapy; Z79.621 Long term (current) use of calcineurin inhibitor
CPT/HCPCS: 36415; 36430; 80053; 85025; 85055; 85610; 85730; 86850; 86900; 86901; 86920; 96360; 99285; J7050; P9016

== ENCOUNTER 2024-11-08 14:14 | Inpatient (IN) | payer MEDICARE, SELFPAY ==
[2024-11-08] VITALS (32 sets, daily range): BP systolic 147–198; BP diastolic 60–93; PULSE 77–90; RESP 15–28; TEMP 37–38.8; O2SAT 94–100
--- NOTE | ~2024-11-08 | XR_ITS ---
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 RESULT: Lines, tubes, and devices: Left upper extremity stent and vascular clips. Lungs and pleura: Clear. Cardiomediastinal silhouette: Stable. Other: No acute osseous or upper abdominal finding. IMPRESSION: No acute cardiopulmonary process. Reviewed, dictated and finalized at location K. ET RESEARCH EXECUTIVE
--- NOTE | ~2024-11-08 | US_ITS ---
US abdomen complete DATE: 11/10/2024 11:40 INDICATION: Hepatosplenomegaly TECHNIQUE: Real-time imaging and color flow imaging of the abdomen COMPARISON: None. FINDINGS: The liver measures 15.6 cm sagittal dimension. No hepatic space-occupying mass lesion is ev ident. Normal hepatopedal portal venous flow direction. No gallstones are detected. Gallbladder wall thickness measures upper normal range. Negative sonograp hic Leary sign. The common bile duct measures 2.3 mm, normal. The pancreas appears normal. The spleen measures 13.0 cm length, within upper normal range. The right kidney measures 6.1 x 2.7 x 4.6 cm. There is cortical thinning and increased parenchymal ec hogenicity. There are multiple cystic structures, measuring up to 1.9 cm. Left kidney measures 6.9 x 2.9 x 3.4 cm, also with cortical thinning and increased parenchymal echoge nicity. 1.4 x 1.7 cm cyst. IMPRESSION: Prominent atrophy and increased echogenicity of the kidneys, consistent with chronic shahnaz l medical disease; no evidence of obstructive uropathy Renal cysts Spleen measures 13 cm length, within upper limits of normal (up to 14 cm) Reviewed, dictated and finalized at [facility]. Reviewed, dictated and finalized at location A. RINARY PHARMACOLOGIST IMPRESSION: Prominent atrophy and increased echogenicity of the kidneys, consis tent with chronic renal medical disease; no evidence of obstructive uropathy Renal cysts Spleen measures 13 cm length, within upper limits of normal (up to 14 cm)
--- NOTE | ~2024-11-08 | XR_ITS ---
EXAM: XR hip LT 2V w AP pelvis DATE: 11/08/2024 20:26 HISTORY: pain after fall . COMPARISON: None available. FINDINGS: Normal mineralization. No fracture or dislocation. No lytic or blastic lesion. Mild bilate ral hip osteoarthritis. No erosion or periosteal change. Soft tissues within normal limits. IMPRESSION: No acute osseous finding in the pelvis or left hip. Reviewed, dictated and finalized at location K. O MAINTAINER
--- NOTE | 2024-11-08 14:50 | ED_ITS ---
HPI - Recheck/Abnormal Lab/Rx General Chief Complaint: Recheck/Abnormal Lab/Rx Stated Complaint: hgb 6 Time Seen by Provider: 11/08/24 14:31 History of Present Illness HPI narrative: 54-year-old female with a past medical history significant for systemic lupus erythematosus, lupus nephritis, status post renal transplant on tacrolimus, ESRD on hemodialysis through her left upper extremity fistula. She goes to dialysis Monday. Went to dialysis today and complete her 3 hour chair time without concern. They tested her blood knows that she was anemic and sent her into the ED for blood transfusion. She has had previous transfusions in the past and in this emergency department for similar. Patient denies any active bleeding, no blood in her urine or stool, no melena, no hematochezia no vaginal bleeding or heavy menses. Her last colonoscopy in July was unremarkable. Patient does states that she feels generally weak as well as been feeling like she has been having a URI over last few days. She normally gets blood transfusions and goes home thereafter. Related Data Home Medications ?Medication ?Instructions ?Recorded ?Confirmed ?Last Taken ?Type cholecalciferol (vitamin D3) 50 2,000 unit PO DAILY 10/02/19 08/09/24 08/08/24 History mcg (2,000 unit) tablet prednisolone 5 mg tablet 5 mg PO DAILY 10/02/19 08/09/24 08/08/24 History tacrolimus 1 mg capsule, 1 mg PO Q12H 10/02/19 08/09/24 08/08/24 History immediate-release furosemide 80 mg tablet 80 mg PO BID 05/24/22 08/09/24 08/08/24 History doxazosin 8 mg tablet 8 mg PO DAILY 06/09/22 08/09/24 08/08/24 History biotin 10,000 mcg capsule 10,000 mcg PO DAILY 08/02/22 08/09/24 08/08/24 History multivitamin and minerals 1 tablet PO DAILY 09/12/22 08/09/24 08/08/24 History no.11-folic acid 5 mg tablet (Dialyvite 5000) Allergies Allergy/AdvReac Type Severity Reaction Status Date / Time lisinopril Allergy Severe Swelling Verified 10/10/24 11:04 of Lip/Tongue/Throat Penicillins Allergy Severe Swelling Verified 10/10/24 11:04 of Lip/Tongue/Throat CHRIST Inhibitors Allergy Intermediate SWELLING Verified 10/10/24 11:04 ibuprofen Allergy Intermediate UNABLE TO Verified 10/10/24 11:04 TAKE WITH LUPUS NEPHRITIS Review of Systems 2 Review of Systems: As reviewed above in HPI [facility] Past Medical History Medical History Colon polyps Diarrhea Rectal bleeding History of kidney disease Allergies Screening mammogram, encounter for Dialysis patient renal failure History of endometrial biopsy (~01/23/16) menometrorrhagia Anemia Trichomonas vaginalis (TV) infection (05/04/16) High cholesterol HPV in female Abnormal Pap smear of cervix 07/14/15 lgsil ; 05/08/14 lgsil; 10/16/12 ASCUS / +HPV Hx of blood clots (~12/2012) 3 rt leg, 2 rt arm History of 2019 novel coronavirus disease (COVID-19) Chronic kidney disease, stage 5, kidney failure Chronic lupus nephritis Glomerular disorders in diseases classified elsewhere Hypertensive chronic kidney disease with stage 1 through stage 4 chronic kidney disease, or unspecified chronic kidney disease Intractable migraine without aura and without status migrainosus Surgical History Surgical History History of total hysterectomy February 2017 History of elective x2 History of robot-assisted laparoscopic hysterectomy [facility] w/RSO--HGSIL, ovarian cyst, leiomyoma H/O LEEP 12/31/15 HGSIL TRAVIS II History of dilation and curettage (08/03/15) hscope d&c/Novasure endometrial ablation History of endometrial ablation (08/03/15) hscope d&c/Novasure endometrial ablation History of left salpingo-oophorectomy (08/31/15) EXP LAP, LSO, ADHESIOLYSIS left dermoid cyst, left & right hydrosalpinx History of colposcopy with cervical biopsy 12/13/12 TRAVIS I 09/02/15 TRAVIS II 12/09/15 HGSIL History of ovarian cystectomy (07/11/07) EXP LAP; RIGHT OVARIAN CYSTECTOMY, R PARTIAL SALPINGECTOMY - R Ovarian Cyst, R hydrosalpinx History of laparoscopy (03/23/05) dx lap, chromopertubation - bilateral salpinx, pelvic adhesions, left ovarian enlargement, bilaterally blocked fallopian tubes Kidney transplant recipient (~08/2019) Family History Family History Mother Hypertension Father Family history of type 2 diabetes mellitus Family history of heart disease in male family member before age 55 Cerebrovascular accident Hypertension Diabetes mellitus Other Cancer Diabetes mellitus Hypertension Family history of heart disease in male family member before age 55 Social History Social History Smoking status: Never smoker Second hand tobacco smoke exposure: No Alcohol intake: never Substance use: never Substance use type: does not use Living arrangements: alone Additional living arrangements comments: Occupation/Education: occupation 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 Mucous membranes moist. NECK: Supple. CHEST: [Clear to auscultation. No respiratory distress.] HEART: [Regular rate and rhythm]. No murmur heard. [Normal peripheral pulses.] Left upper extremity AV fistula with strong palpable thrill ABDOMEN: [Soft, nondistended], [nontender], [No rigidity or guarding] EXTREMITIES: Normal range of motion. [No edema.] SKIN: Warm, dry, no rash. NEURO: [No focal deficits]. Alert and oriented [x3.] PSYCH: [Normal mood and affect.] Course Vital Signs Vital signs: Vital Signs Temperature 37.9 C H 11/08/24 14:29 Pulse Rate 90 11/08/24 14:29 Respiratory Rate 18 11/08/24 14:29 Blood Pressure 158/60 H 11/08/24 14:29 Pulse Oximetry 100 11/08/24 14:29 Temperature 37.8 C H 11/08/24 21:49 Pulse Rate 82 11/08/24 22:01 Respiratory Rate 24 H 11/08/24 22:01 Blood Pressure 187/93 H 11/08/24 22:01 Pulse Oximetry 99 11/08/24 22:01 MDM - Recheck/Abnormal Lab/Rx MDM Narrative Medical decision making narrative: 54-year-old female with history of lupus nephritis, status post renal transplant, ESRD on hemodialysis Monday, Monday, Monday. She presents from her dialysis center immediately after completing a session. She presents for blood transfusion at this time. She is noted to be anemic with a hemoglobin of 6.3 and hematocrit of 20. She has had previous levels this low in the past requiring transfusion. No active bleeding or hemorrhage noted. Patient states that she feels generalized malaise as well as some URI symptoms including congestion and runny nose. She has been borderline febrile here with a temperature 37.9? C orally. Other vitals are reassuring without any hypoxia, tachycardia, tachypnea or significant blood pressure elevations. She will be provided Tylenol p.o., workup for infectious causes such as upper respiratory or pneumonia was ordered including portable chest x-ray, COVID fluid RSV swabs. Laboratory studies with BMP and CBC drawn. 2 units of typed and cross-matched blood was ordered and post infusion H&H also ordered. Patient received Tylenol with improvement her temperature 37.1? which persisted during repeat evaluations. Workup shows a hemoglobin of 6.3, hematocrit of 19.7. Electrolyte panel shows some derangements including a potassium of 2.7, her previous level is 2.8 in August. Creatinine in line with her normal end- stage renal function. Glucose within normal limits 106. Patient tested negative for COVID fluid RSV. X-ray of her chest shows no acute cardiopulmonary disease. Patient was given a 40 mEq potassium dose as well as the 2 units of blood products. Will re-evaluate her electrolytes and CBC post infusion and treatment to see if there is any improvement. I discussed with the patient that if she does not have any significant improvement in her potassium she would probably benefit from replacement on inpatient basis we can monitor especially with her dialysis status. She would be agreeable to this but wants to wait for repeat labs. Her EKG was nonischemic and shows no dysrhythmia. She is hemodynamically stable here and awaiting transfusion. Patient had a recurrence of her fever after the initial Tylenol responded nicely. Patient was re-evaluated and states she feels significantly improved from a physical standpoint was no longer as weak. She does endorse that she still makes a small amount a urine and we will send this for urinalysis. Blood cultures were obtained and she will be admitted for an observation admission at this time to rule out any kind of bacteremia or other cause or source of her fever given that she has high risk a dialysis patient. Patient was comfortable with this plan of care and is currently undergoing her 2nd blood transfusion. Spoke to the hospitalist Dr. Lynn who accepted the patient for admission at this time to observation. Medical Records Attestation: I reviewed the patient's medical records. Lab Data Attestation: I reviewed the patient's lab results. 11/08/24 15:49 11/08/24 16:10 Labs: Lab Results 11/08/24 11/08/24 11/08/24 Range/Units 15:24 15:49 16:10 WBC 6.4 (4.5-10.0) K/mm3 RBC 2.23 L (4.2-5.4) M/mm3 Hgb 6.3 L* (12.0-15.0) g/dL Hct 19.7 L* (37.0-47.0) % MCV 88.3 (80-100) fl MCH 28.3 (26-34) pg MCHC 32.0 (32-36) g/dl RDW 17.3 H (11.5-14.5) % Plt Count 127 L (150-375) k/mm3 MPV 9.9 (7.4-10.4) fl Immature Gran % (Auto) 0.3 (0-0.5) % Neut % (Auto) 77.0 H (45.5-73.1) % Lymph % (Auto) 9.5 L (18.3-44.2) % Cloud % (Auto) 12.8 H (2.6-8.5) % Eos % (Auto) 0.2 (0-4.4) % Baso % (Auto) 0.2 (0.2-1.2) % Lymph # (Auto) 0.61 L (0.9-3.2) K/mm3 Cloud # (Auto) 0.8 H (0.1-0.6) K/mm3 Eos # (Auto) 0.0 (0-0.3) K/mm3 Baso # (Auto) 0.0 (0.0-0.1) K/mm3 Abs Immat Gran (auto) 0.02 (0.00-0.031) K/mm3 Absolute Neuts (auto) 4.9 (1.3-6.7) K/mm3 Absolute Nucleated RBC 0.000 (0.0-0.012) K/mm3 Nucleated RBC % 0.0 (0.0-0.2) % Sodium 136 L (137-145) mmol/L Potassium 2.7 L* (3.4-5.0) mmol/L Chloride 98 (98-107) mmol/L Carbon Dioxide 36 H (22-30) mmol/L Anion Gap 2 L (4-12) mmol/L BUN 8 (7-17) mg/dL Creatinine 2.84 H (0.7-1.0) mg/dL Estim Creat Clear Calc 17 ml/min Estimated GFR 21 L (59 - ) Glucose 106 (65-110) mg/dL Calcium 7.2 L (8.4-10.2) mg/dL Influenza A (RT-PCR) Negative (Negative) Influenza B (RT-PCR) Negative (Negative) RSV (RT-PCR) Negative (Negative) SARS-CoV-2 RNA (RT-PCR) Negative (Negative) Blood Type B Positive Antibody Screen Negative Crossmatch See Detail Imaging Data Attestation: I personally reviewed and interpreted this imaging study as follows: My impression: Impressions Chest X-Ray 11/08/24 15:37 IMPRESSION: No acute cardiopulmonary process. Hip/Pelvis X-Ray 11/08/24 20:28 IMPRESSION: No acute osseous finding in the pelvis or left hip. Discharge Plan Discharge Clinical Impression: Fever of unknown origin, Dialysis patient, Anemia, Hypokalemia, Encounter for blood transfusion Patient Disposition: Still a Patient Condition: Stable Patient Language: Mongolian Prescriptions: No Action biotin 10,000 mcg capsule 10,000 mcg PO DAILY furosemide 80 mg tablet 80 mg PO BID Patient Comments: on days she does not have dialysis Rx Instructions: On non HD days cholecalciferol (vitamin D3) 2,000 unit tablet 2,000 unit PO DAILY prednisolone 5 mg tablet 5 mg PO DAILY tacrolimus 1 mg capsule 1 mg PO Q12H Dialyvite 5000 5 mg tablet 1 tablet PO DAILY doxazosin 8 mg tablet 8 mg PO DAILY atorvastatin 20 mg tablet 20 mg PO DAILY Qty: 90 3RF Rx Instructions: TAKE 1 TABLET BY MOUTH EVERY DAY carvedilol 25 mg tablet 25 mg PO BID Qty: 60 11RF diltiazem HCl 120 mg capsule,extended release 24hr See Rx Instructions .ROUTE .COMPLEX Qty: 90 4RF Dose Instruction: TAKE 1 CAPSULE BY MOUTH EVERY DAY Rx Instructions: TAKE 1 CAPSULE BY MOUTH EVERY DAY Follow-up/Referrals: Vinny Lugo DO [Primary Care Provider] - Time of Disposition: 22:53
[2024-11-08] MEDS: ACETAMINOPHEN 500 MG TABLET 1000 MG PO ×2 (15:16→23:03)
[2024-11-08 15:56] LABS: Basophils Percent Auto 0.2 % (0.2-1.2); Eosinophils Percent Auto 0.2 % (0-4.4); Immature Granulocyte Absolute 0.02 K/mm3 (0.00-0.031); Immature Granulocyte Percent A 0.3 % (0-0.5); Lymphocytes Absolute Auto 0.61 K/mm3 (0.9-3.2); Lymphocytes Percent Auto 9.5 % (18.3-44.2); Mean Corpuscular Hemoglobin 28.3 pg (26-34); Mean Corpuscular Volume 88.3 fl (80-100); Mean Platelet Volume 9.9 fl (7.4-10.4); Monocytes Absolute Auto 0.8 K/mm3 (0.1-0.6); Monocytes Percent Auto 12.8 % (2.6-8.5); Neutrophils Absolute Auto 4.9 K/mm3 (1.3-6.7); Platelet Count Result 127 k/mm3 (150-375); Red Blood Count 2.23 M/mm3 (4.2-5.4); Red Cell Distribution Width 17.3 % (11.5-14.5); White Blood Count 6.4 K/mm3 (4.5-10.0)
[2024-11-08 16:09] LABS: Influenza A QL RT-PCR Negative (Negative); Influenza B QL RT-PCR Negative (Negative); RSV RNA, RT-PCR Negative (Negative); SARS-CoV-2 RNA PCR Negative (Negative)
[2024-11-08 16:12] LABS: Hemoglobin 6.3 g/dL (12.0-15.0)
[2024-11-08 16:13] LABS: Hematocrit 19.7 % (37.0-47.0)
[2024-11-08 16:29] LABS: Anion Gap 2 mmol/L (4-12); Blood Urea Nitrogen 8 mg/dL (7-17); Calcium 7.2 mg/dL (8.4-10.2); Carbon Dioxide 36 mmol/L (22-30); Chloride 98 mmol/L (98-107); Estimated CRCL calculation 17 ml/min; Estimated Glomerular Filt Rate 21; Glucose 106 mg/dL (65-110); Potassium 2.7 mmol/L (3.4-5.0); Sodium 136 mmol/L (137-145)
--- NOTE | 2024-11-08 17:40 | ECG_ITS ---
Test Date: 2024-11-08 18:25:39 Measurements Intervals [place] Rate: 80 P: 35 FL: 159 QRS: -8 QRSD: 86 T: 12 QT: 417 QTc: 483 Interpretive Statements SINUS RHYTHM VOLTAGE CRITERIA FOR LVH [MEETS CRITERIA IN ONE OF: R(aVL), S(V1), R(V5), R(V5/V6)+S(V1)] MINIMAL ST DEPRESSION [0.025+ mV ST DEPRESSION] NONSPECIFIC T-WAVE ABNORMALITY ABNORMAL ECG Electronically Signed On 11-09-2024 10:41:05 BIT SHARPENER by Delroy Mosley M.D.
[2024-11-08] MEDS: SODIUM CHLORIDE 0.9% IV 250 ML 30 ML IV CONT (17:51)
[2024-11-08] MEDS: TUBING, BLOOD PLUM PUMP TUBING 1 EACH XX (17:51)
[2024-11-08] MEDS: POTASSIUM CHLORIDE 20 MEQ ER TABLET 40 MEQ PO (18:06)
[2024-11-09] VITALS (14 sets, daily range): BP systolic 159–193; BP diastolic 77–94; PULSE 56–88; RESP 15–28; TEMP 36.7–38.7; O2SAT 94–99; BMI 24.5
--- NOTE | 2024-11-09 00:16 | PC.NURSE ---
this rn called phlebotomy to get assistance with lab draw.
[2024-11-09 00:17] LABS: Add Urine Microscopic? YES; Appearance Urine Cloudy (Clear); Bacteria Urine 2+ /hpf; Bilirubin Urine Negative (Negative); Blood Urine Negative (Negative); Color Urine Dark Yellow (Yellow); Glucose Urine UA Negative (Negative); Ketones Urine Trace mg/dL (Negative); Leukocyte Esterase Ur 1+ LEU/UL (Negative); Need Manual Microscopic Reviewed; Nitrate Urine Negative (Negative); Non Pathogenic Casts 0-2; Protein Urine 2+ mg/dL (Negative); Specific Grav Ur 1.016 (1.001-1.035); Squamous Epithelial Cell Urine Many /hpf (Few); Urobilinogen Urine 0.2 mg/dL (<2.0); WBC Urine 21-50 /hpf (0-3); pH Urine 7.5 (5.0-9.0)
--- NOTE | 2024-11-09 01:11 | PC.NURSE ---
this rn is unable to start abx due to blood cultures not being obtained by phlembotomy.
--- NOTE | 2024-11-09 01:22 | PM.IMHP ---
H&P: HPI History of Present Illness Date/Time: 11/09/24 01:22 Chief Complaint: Fever Narrative: This is a 54-year-old female with past medical history significant for lupus nephritis, end-stage renal disease on hemodialysis, failed kidney transplant, anemia of chronic disease. Patient dialyzes 3 times a week comes to the emergency room due to episode of fever, patient denies any cough, nausea, vomiting, has been in her usual state of health up until this point. Preliminary workup in emergency room was significant for hemoglobin of 6.3, a urinalysis was significant for numerous WBCs present. Patient has been admitted for further evaluation management and treatment. 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 RESULT: Lines, tubes, and devices: Left upper extremity stent and vascular clips. Lungs and pleura: Clear. Cardiomediastinal silhouette: Stable. Other: No acute osseous or upper abdominal finding. IMPRESSION: No acute cardiopulmonary process. Review of Systems Review of Systems: Fever PMFSH Past Medical History Medical History (Updated 11/09/24 @ 01:24 by Charlie Lynn MD) Chronic lupus nephritis Colon polyps Diarrhea Rectal bleeding History of kidney disease Allergies Screening mammogram, encounter for Dialysis patient renal failure History of endometrial biopsy (~01/23/16) menometrorrhagia Anemia Trichomonas vaginalis (TV) infection (05/04/16) High cholesterol HPV in female Abnormal Pap smear of cervix 07/14/15 lgsil ; 05/08/14 lgsil; 10/16/12 ASCUS / +HPV Hx of blood clots (~12/2012) 3 rt leg, 2 rt arm History of 2019 novel coronavirus disease (COVID-19) Chronic kidney disease, stage 5, kidney failure Glomerular disorders in diseases classified elsewhere Hypertensive chronic kidney disease with stage 1 through stage 4 chronic kidney disease, or unspecified chronic kidney disease Intractable migraine without aura and without status migrainosus Surgical History Surgical History History of total hysterectomy February 2017 History of elective x2 History of robot-assisted laparoscopic hysterectomy RA TLH w/RSO--HGSIL, ovarian cyst, leiomyoma H/O LEEP 12/31/15 HGSIL TRAVIS II History of dilation and curettage (08/03/15) hscope d&c/Novasure endometrial ablation History of endometrial ablation (08/03/15) hscope d&c/Novasure endometrial ablation History of left salpingo-oophorectomy (08/31/15) EXP LAP, LSO, ADHESIOLYSIS left dermoid cyst, left & right hydrosalpinx History of colposcopy with cervical biopsy 12/13/12 TRAVIS I 09/02/15 TRAVIS II 12/09/15 HGSIL History of ovarian cystectomy (07/11/07) EXP LAP; RIGHT OVARIAN CYSTECTOMY, R PARTIAL SALPINGECTOMY - R Ovarian Cyst, R hydrosalpinx History of laparoscopy (03/23/05) dx lap, chromopertubation - bilateral salpinx, pelvic adhesions, left ovarian enlargement, bilaterally blocked fallopian tubes Kidney transplant recipient (~08/2019) Family History Family History Mother Hypertension Father Family history of type 2 diabetes mellitus Family history of heart disease in male family member before age 55 Cerebrovascular accident Hypertension Diabetes mellitus Other Cancer Diabetes mellitus Hypertension Family history of heart disease in male family member before age 55 Social History Social History Smoking status: Never smoker Second hand tobacco smoke exposure: No Alcohol intake: never Substance use: never Substance use type: does not use Living arrangements: alone Additional living arrangements comments: Occupation/Education: occupation 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 [employer] Gender identity (if verbalized by the patient): Female Sexual Orientation (if Verbalized by the Patient): Straight or Heterosexual Spiritual care concerns: No Meds Home Medications and Allergies Home Medications ?Medication ?Instructions ?Recorded ?Confirmed ?Type cholecalciferol (vitamin D3) 50 2,000 unit PO DAILY 10/02/19 08/09/24 History mcg (2,000 unit) tablet prednisolone 5 mg tablet 5 mg PO DAILY 10/02/19 08/09/24 History tacrolimus 1 mg capsule, 1 mg PO Q12H 10/02/19 08/09/24 History immediate-release furosemide 80 mg tablet 80 mg PO BID 05/24/22 08/09/24 History doxazosin 8 mg tablet 8 mg PO DAILY 06/09/22 08/09/24 History biotin 10,000 mcg capsule 10,000 mcg PO DAILY 08/02/22 08/09/24 History multivitamin and minerals 1 tablet PO DAILY 09/12/22 08/09/24 History no.11-folic acid 5 mg tablet (Dialyvite 5000) atorvastatin 20 mg tablet 20 mg PO DAILY #90 tabs 02/08/24 08/09/24 Rx carvedilol 25 mg tablet 25 mg PO BID #60 tabs 05/09/24 08/09/24 Rx diltiazem HCl 120 mg See Rx Instructions .Route 08/23/24 Rx capsule,extended release 24 hr .COMPLEX #90 caps Allergies Allergy/AdvReac Type Severity Reaction Status Date / Time lisinopril Allergy Severe Swelling Verified 10/10/24 11:04 of Lip/Tongue/Throat Penicillins Allergy Severe Swelling Verified 10/10/24 11:04 of Lip/Tongue/Throat CHRIST Inhibitors Allergy Intermediate SWELLING Verified 10/10/24 11:04 ibuprofen Allergy Intermediate UNABLE TO Verified 10/10/24 11:04 TAKE WITH LUPUS NEPHRITIS Vital Signs Vital Signs - 24 hr 11/08/24 14:29 11/08/24 14:37 11/08/24 14:46 Temperature 100.3 F H Pulse Rate 90 87 Respiratory Rate 18 16 Blood Pressure 158/60 H 174/80 H 172/76 H Pulse Oximetry 100 99 100 11/08/24 15:16 11/08/24 15:17 11/08/24 15:46 Temperature 101.8 F H 99.7 F H Pulse Rate 90 89 Respiratory Rate 17 16 Blood Pressure 167/78 H 167/78 H Pulse Oximetry 100 100 11/08/24 16:42 11/08/24 17:01 11/08/24 17:23 Temperature 99.7 F H 99.4 F Pulse Rate 84 86 85 Respiratory Rate 18 21 H 18 Blood Pressure 163/73 H 147/74 H 147/74 H Pulse Oximetry 99 100 99 11/08/24 17:32 11/08/24 17:32 11/08/24 17:40 Temperature 98.6 F 98.8 F Pulse Rate 81 83 82 Respiratory Rate 16 21 H 16 Blood Pressure 169/79 H 169/79 H 176/80 H Pulse Oximetry 99 99 97 11/08/24 17:42 11/08/24 17:42 11/08/24 18:01 Temperature 99.2 F Pulse Rate 82 80 81 Respiratory Rate 20 17 16 Blood Pressure 176/80 H 175/82 H 175/82 H Pulse Oximetry 99 100 100 11/08/24 18:33 11/08/24 18:42 11/08/24 18:48 Temperature 98.8 F Pulse Rate 79 77 82 Respiratory Rate 15 19 18 Blood Pressure 167/79 H 176/78 H 176/78 H Pulse Oximetry 97 97 11/08/24 19:01 11/08/24 19:31 11/08/24 19:42 Temperature 98.7 F Pulse Rate 80 83 82 Respiratory Rate 16 22 H 18 Blood Pressure 168/79 H 167/76 H 182/80 H Pulse Oximetry 100 100 100 11/08/24 20:01 11/08/24 20:31 11/08/24 20:46 Temperature 99.0 F Pulse Rate 79 79 80 Respiratory Rate 20 20 21 H Blood Pressure 182/80 H 182/80 H 182/89 H Pulse Oximetry 99 100 100 11/08/24 20:49 11/08/24 20:49 11/08/24 20:50 Temperature 98.7 F 98.7 F 98.7 F Pulse Rate 80 80 80 Respiratory Rate 17 17 17 Blood Pressure 182/89 H 182/89 H 182/89 H Pulse Oximetry 100 100 100 11/08/24 21:01 11/08/24 21:31 11/08/24 21:49 Temperature 100.0 F H Pulse Rate 80 80 84 Respiratory Rate 21 H 24 H 18 Blood Pressure 178/89 H 188/89 H 181/93 H Pulse Oximetry 100 99 100 11/08/24 22:01 11/08/24 22:31 11/08/24 22:49 Temperature 101.6 F H Pulse Rate 82 81 86 Respiratory Rate 24 H 20 16 Blood Pressure 187/93 H 198/91 H 198/91 H Pulse Oximetry 99 99 100 11/08/24 23:01 11/08/24 23:31 11/09/24 01:09 Temperature 101.6 F H Pulse Rate 85 88 88 Respiratory Rate 23 H 28 H 28 H Blood Pressure 193/93 H 180/87 H 180/87 H Pulse Oximetry 95 94 94 Exam Narrative: Patient is laying in a stretcher Const: General: comfortable, no acute distress, well developed, alert, awake, ill appearing chronically and average body habitus Nutritional Appearance: average body habitus Orientation/consciousness: patient oriented x3 HENMT: Head: normal to inspection, normocephalic and atraumatic Ears: hearing grossly normal bilaterally Face/Nose/Sinus: normal facial exam Face and sinus: normal facial exam Eyes: General: appearance normal, both eyes and all related structures Pupils: Equal, round and reactive pupils present EOM: EOMs intact bilaterally Neck: Neck: full ROM, no lymphadenopathy and no JVD Thyroid: thyroid normal Lymphatic: no lymphadenopathy noted Resp: Effort & Inspection: normal respiratory effort and able to speak in complete sentences Auscultation: clear to auscultation bilaterally Cardio: Jugular venous distension: no JVD Rate: regular rate Rhythm: regular rhythm Heart sounds: S1 normal heart sound present and S2 normal heart sound present GI: GI Palp: Yes Soft to palpation and Yes No hepatosplenomegaly present : General: Yes deferred Skin: Rashes: no rashes Wounds: no wounds Neuro: General: patient oriented x3 and CN's II-XI intact bilaterally Cranial nerves: Yes CN's II-XII intact bilaterally and Yes Equal, round and reactive pupils present Cognition (Neuro): normal cognition Speech: normal speech Gait exam (Neuro): Normal gait present Motor exam (neuro): 5/5 motor strength present throughout Extrem: General: normal to inspection, full ROM, no joint enlargement and no pedal edema H&P: Results Labs Labs: Short CBC 11/08/24 Range/Units 15:49 WBC 6.4 (4.5-10.0) K/mm3 Hgb 6.3 L* (12.0-15.0) g/dL Hct 19.7 L* (37.0-47.0) % Plt Count 127 L (150-375) k/mm3 BMP 11/08/24 16:10 Sodium 136 L Potassium 2.7 L* Chloride 98 Carbon Dioxide 36 H BUN 8 Creatinine 2.84 H Glucose 106 Calcium 7.2 L Urine 11/08/24 Range/Units 23:55 Urine Color Dark yellow (Yellow) Urine Appearance Cloudy H (Clear) Urine pH 7.5 (5.0-9.0) Ur Specific [place] 1.016 (1.001-1.035) Urine Protein 2+ H (Negative) mg/dL Urine Glucose (UA) Negative (Negative) mg/dL Assessment and Plan Assessment and plan (1) UTI (urinary tract infection): Code(s): N39.0 - Urinary tract infection, site not specified Status: Acute Assessment and Plan: Admit to regular medical floor Patient started on levofloxacin Cultures in progress (2) Anemia in chronic kidney disease: Code(s): N18.9 - Chronic kidney disease, unspecified; D63.1 - Anemia in chronic kidney disease Status: Acute Assessment and Plan: Transfuse as needed (3) Essential (primary) hypertension: Code(s): I10 - Essential (primary) hypertension Status: Acute Assessment and Plan: Restart home meds as needed (4) Dialysis patient: Code(s): Z99.2 - Dependence on renal dialysis Status: Acute Assessment and Plan: Continue hemodialysis as needed Nephrology consult (5) Immunosuppression: Code(s): D89.9 - Disorder involving the immune mechanism, unspecified Status: Acute Assessment and Plan: Continue tacrolimus (6) Chronic lupus nephritis: Code(s): M32.14 - Glomerular disease in systemic lupus erythematosus Status: Acute Assessment and Plan: Patient is status post transplant Hospitalist MIPS Advance Care Plan I have confirmed that the patient's Advanced Care Plan is present, code status is documented, or surrogate decision maker is listed in patient medical record.: Yes Medication Reconciliation I have utilized all available resources to obtain, update and review the patients current medications (includes all prescriptions, OTC, herbals, cannabis, and nutritional supplements).: Yes
--- NOTE | 2024-11-09 02:17 | PC.NURSE ---
phlebotomy at bedside
[2024-11-09 03:06] LABS: Hematocrit 27.7 % (37.0-47.0); Hemoglobin 8.9 g/dL (12.0-15.0)
[2024-11-09] MEDS: levoFLOXacin 750 MG/D5W 150 ML 750 MG/150 ML BAG 100 MG IVPB (03:06)
[2024-11-09 03:17] LABS: Anion Gap 3 mmol/L (4-12); Blood Urea Nitrogen 11 mg/dL (7-17); Calcium 7.2 mg/dL (8.4-10.2); Carbon Dioxide 33 mmol/L (22-30); Chloride 100 mmol/L (98-107); Estimated CRCL calculation 14 ml/min; Estimated Glomerular Filt Rate 16; Glucose 78 mg/dL (65-110); Potassium 3.2 mmol/L (3.4-5.0); Sodium 136 mmol/L (137-145)
--- NOTE | 2024-11-09 06:27 | PC.NURSE ---
pt able to ambulate with a steady unassisted gait to be able to use the bathroom
--- NOTE | 2024-11-09 07:44 | PC.NURSE ---
breakfast tray ordered at this time
--- NOTE | 2024-11-09 08:04 | PC.NURSE ---
Pt c/o nausea, dry heaves. Hospitalist called, ordered zofran prn.
--- NOTE | 2024-11-09 09:36 | PC.NURSE ---
Called pharmacy for missing meds
--- NOTE | 2024-11-09 10:57 | PC.NURSE ---
Pharmacy called d/t missing medications again
[2024-11-09] MEDS: dilTIAZem HCL CD 120 MG CAP.24HR PO (11:10)
[2024-11-09] MEDS: ATORVASTATIN 20 MG TABLET PO (11:10)
[2024-11-09] MEDS: TACROLIMUS 0.5 MG CAPSULE 1 MG BY MOUTH ×2 (11:11→21:00)
[2024-11-09] MEDS: CHOLECALCIFEROL 1,000 UNITS TABLET 2000 UNITS PO (11:11)
[2024-11-09] MEDS: DOXAZOSIN MESYLATE 4 MG TABLET 8 MG PO (11:12)
--- NOTE | 2024-11-09 13:07 | P.PNIM_ITS ---
Progress Note: A&P Assessment and Plan (1) UTI (urinary tract infection): Code(s): N39.0 - Urinary tract infection, site not specified Status: Acute (2) Anemia in chronic kidney disease: Code(s): N18.9 - Chronic kidney disease, unspecified; D63.1 - Anemia in chronic kidney disease Status: Acute (3) Essential (primary) hypertension: Code(s): I10 - Essential (primary) hypertension Status: Acute (4) Dialysis patient: Code(s): Z99.2 - Dependence on renal dialysis Status: Acute (5) Immunosuppression: Code(s): D89.9 - Disorder involving the immune mechanism, unspecified Status: Acute (6) Chronic lupus nephritis: Code(s): M32.14 - Glomerular disease in systemic lupus erythematosus Status: Acute Plan This is a 54-year-old female went to dialysis on Monday and completed her treatment without concern. They tested her blood was noted to be anemic and hence was sent to ED for evaluation. He had had previous admissions for similar reason in the past. Denies any active bleeding no blood in stool or urine. She is status post complete hysterectomy. Last colonoscopy in July 2024 was unremarkable. She has been feeling generally weak and also short of breath. She has been having intermittent fever for several weeks now. On arrival to the ED see was borderline febrile with a temperature of 37.9?. Otherwise vitals were stable except for elevated blood pressure. Laboratory studies showed CBC with hemoglobin of 6.3. Chem panel was unremarkable except for underlying CKD and low potassium of 2.7. Patient tested negative for COVID RSV and flu. Chest x-ray with no acute cardiopulmonary di sease. UA positive for UTI EKG did not show any acute ST-T changes. She received 2 units of packed red blood cell transfusion overnight. Her post transfusion hemoglobin is 8.9. Fever: Blood culture obtained. Follow blood culture. Urinalysis does note evidence of UTI UTI started on levofloxacin. Follow urine culture. History of lupus nephritis status post kidney transplant which failed and back on dialysis again Colon polyps Diarrhea intermittent reported. Will get stool studies End-stage renal disease on hemodialysis nephrology consult for inpatient hemodialysis Monday History of DVT in 2012 Migraine Hypertension DVT prophylaxis SCDs Code status full code Subjective Date/time seen: 11/09/24 13:07 Review of Systems Review of Systems: All systems reviewed & are unremarkable except as noted in HPI and below Exam Narrative: GENERAL: Well-appearing, well-nourished, and in no acute distress. HEAD: Normocephalic, atraumatic. EYES: Equal pupils are equal reactive, bilateral conjunctival pallor noted ENT: Nares clear, no rhinorrhea or epistaxis. Mucous membranes moist. NECK: Supple. CHEST: Clear to auscultation. No respiratory distress. HEART: Regular rate and rhythm. No murmur heard. Normal peripheral pulses. Left upper extremity AV fistula with strong palpable thrill ABDOMEN: Soft, nondistended, nontender, No rigidity or guarding EXTREMITIES: Normal range of motion. No edema SKIN: Warm, dry, no rash. NEURO: No focal deficits. Alert and oriented x3. PSYCH: Normal mood and affect. Objective Data Vital Signs Vital Signs: Vital Signs - 24 hr 11/08/24 14:29 11/08/24 14:37 11/08/24 14:46 Temperature 100.3 F H Pulse Rate 90 87 Respiratory Rate 18 16 Blood Pressure 158/60 H 174/80 H 172/76 H Pulse Oximetry 100 99 100 11/08/24 15:16 11/08/24 15:17 11/08/24 15:46 Temperature 101.8 F H 99.7 F H Pulse Rate 90 89 Respiratory Rate 17 16 Blood Pressure 167/78 H 167/78 H Pulse Oximetry 100 100 11/08/24 16:42 11/08/24 17:01 11/08/24 17:23 Temperature 99.7 F H 99.4 F Pulse Rate 84 86 85 Respiratory Rate 18 21 H 18 Blood Pressure 163/73 H 147/74 H 147/74 H Pulse Oximetry 99 100 99 11/08/24 17:32 11/08/24 17:32 11/08/24 17:40 Temperature 98.6 F 98.8 F Pulse Rate 81 83 82 Respiratory Rate 16 21 H 16 Blood Pressure 169/79 H 169/79 H 176/80 H Pulse Oximetry 99 99 97 11/08/24 17:42 11/08/24 17:42 11/08/24 18:01 Temperature 99.2 F Pulse Rate 82 80 81 Respiratory Rate 20 17 16 Blood Pressure 176/80 H 175/82 H 175/82 H Pulse Oximetry 99 100 100 11/08/24 18:33 11/08/24 18:42 11/08/24 18:48 Temperature 98.8 F Pulse Rate 79 77 82 Respiratory Rate 15 19 18 Blood Pressure 167/79 H 176/78 H 176/78 H Pulse Oximetry 97 97 11/08/24 19:01 11/08/24 19:31 11/08/24 19:42 Temperature 98.7 F Pulse Rate 80 83 82 Respiratory Rate 16 22 H 18 Blood Pressure 168/79 H 167/76 H 182/80 H Pulse Oximetry 100 100 100 11/08/24 20:01 11/08/24 20:31 11/08/24 20:46 Temperature 99.0 F Pulse Rate 79 79 80 Respiratory Rate 20 20 21 H Blood Pressure 182/80 H 182/80 H 182/89 H Pulse Oximetry 99 100 100 11/08/24 20:49 11/08/24 20:49 11/08/24 20:50 Temperature 98.7 F 98.7 F 98.7 F Pulse Rate 80 80 80 Respiratory Rate 17 17 17 Blood Pressure 182/89 H 182/89 H 182/89 H Pulse Oximetry 100 100 100 11/08/24 21:01 11/08/24 21:31 11/08/24 21:49 Temperature 100.0 F H Pulse Rate 80 80 84 Respiratory Rate 21 H 24 H 18 Blood Pressure 178/89 H 188/89 H 181/93 H Pulse Oximetry 100 99 100 11/08/24 22:01 11/08/24 22:31 11/08/24 22:49 Temperature 101.6 F H Pulse Rate 82 81 86 Respiratory Rate 24 H 20 16 Blood Pressure 187/93 H 198/91 H 198/91 H Pulse Oximetry 99 99 100 11/08/24 23:01 11/08/24 23:31 11/09/24 01:09 Temperature 101.6 F H Pulse Rate 85 88 88 Respiratory Rate 23 H 28 H 28 H Blood Pressure 193/93 H 180/87 H 180/87 H Pulse Oximetry 95 94 94 11/09/24 01:48 11/09/24 04:01 11/09/24 04:29 Temperature 98.1 F 98.1 F Pulse Rate 80 81 Respiratory Rate 16 21 H Blood Pressure 193/94 H 189/91 H Pulse Oximetry 98 99 11/09/24 08:35 11/09/24 11:13 Temperature 98.6 F Pulse Rate 78 76 Respiratory Rate 20 15 Blood Pressure 180/86 H 180/86 H Pulse Oximetry 98 98 Intake/Output Intake/Output: Intake & Output 11/06/24 11/07/24 11/08/24 11/09/24 23:59 23:59 23:59 23:59 Intake Total 700 400 Balance 700 400 Meds/Results Medications: Active Medications Generic Name Dose Route Start Last Admin Trade Name Freq PRN Reason Stop Dose Admin Acetaminophen 650 mg 11/08/24 22:54 Acetaminophen 325 Mg Tablet PO Q4H PRN Mild Pain (1-3) or Fever Atorvastatin Calcium 20 mg 11/09/24 09:00 11/09/24 11:10 Atorvastatin 20 Mg Tablet PO 20 mg DAILY MARIANO Administration Carvedilol 25 mg 11/09/24 17:00 Carvedilol 25 Mg Tablet PO BID MARIANO Diltiazem HCl 120 mg 11/09/24 09:30 11/09/24 11:10 Diltiazem Hcl Cd 120 Mg Cap.24hr PO 120 mg DAILY MARIANO Administration Doxazosin Mesylate 8 mg 11/09/24 09:00 11/09/24 11:12 Doxazosin Mesylate 4 Mg Tablet PO 8 mg DAILY MARIANO Administration Furosemide 80 mg 11/09/24 17:00 Furosemide 80 Mg Tablet PO BID MARIANO Levofloxacin/Dextrose 500 mg in 100 mls @ 66.667 mls/hr 11/11/24 03:00 Levaquin 500 Mg/D5w 100 Ml IVPB Q48H [facility] Miscellaneous Information 1 each 11/09/24 00:01 11/09/24 11:13 Prednisolone Tablet Nonformulary. Can Patient Bring From Home Or Hold Till Discharge? XX 12/09/24 00:00 Not Given CLARIFY MARIANO Multivitamins/Calcium 1 tablet 11/10/24 09:00 Therapeutic Multivitamins/Minerals Tab (*Bkc) PO DAILY [facility] Non-Formulary Medication 5 mg 11/10/24 09:00 Prednisolone PO 12/10/24 08:59 DAILY [facility] Ondansetron HCl 4 mg 11/09/24 08:12 Ondansetron Inj 4 Mg/2 Ml Vial IV PUSH Q6H PRN Nausea And Vomiting Tacrolimus 1 mg 11/09/24 10:00 11/09/24 11:11 Tacrolimus 0.5 Mg Capsule BY MOUTH 1 mg Q12HR MARIANO Administration Vitamin D 2,000 units 11/09/24 09:00 11/09/24 11:11 Cholecalciferol 1,000 Units Tablet PO 2,000 units DAILY MARIANO Administration Radiology Results: ITS Impressions Chest X-Ray 11/08/24 15:37 IMPRESSION: No acute cardiopulmonary process. Hip/Pelvis X-Ray 11/08/24 20:28 IMPRESSION: No acute osseous finding in the pelvis or left hip. Labs Labs: Laboratory Results - last 24 hr 11/08/24 11/08/24 11/08/24 15:24 15:49 16:10 WBC 6.4 RBC 2.23 L Hgb 6.3 L* Hct 19.7 L* MCV 88.3 MCH 28.3 MCHC 32.0 RDW 17.3 H Plt Count 127 L MPV 9.9 Immature Gran % (Auto) 0.3 Neut % (Auto) 77.0 H Lymph % (Auto) 9.5 L [place] % (Auto) 12.8 H Eos % (Auto) 0.2 Baso % (Auto) 0.2 Lymph # (Auto) 0.61 L [place] # (Auto) 0.8 H Eos # (Auto) 0.0 Baso # (Auto) 0.0 Abs Immat Gran (auto) 0.02 Absolute Neuts (auto) 4.9 Absolute Nucleated RBC 0.000 Nucleated RBC % 0.0 Sodium 136 L Potassium 2.7 L* Chloride 98 Carbon Dioxide 36 H Anion Gap 2 L BUN 8 Creatinine 2.84 H Estim Creat Clear Calc 17 Estimated GFR 21 L Glucose 106 Calcium 7.2 L Magnesium Urine Color Urine Appearance Urine pH Ur Specific [place] Urine Protein Urine Glucose (UA) Urine Ketones Ur Blood (Man) Urine Nitrate Urine Bilirubin Urine Urobilinogen Add Ur Microanalysis Leukocyte Esterase Rfl Urine RBC Urine WBC Ur Squamous Epith Cells Urine Bacteria Urine Casts Influenza A (RT-PCR) Negative Influenza B (RT-PCR) Negative RSV (RT-PCR) Negative SARS-CoV-2 RNA (RT-PCR) Negative Blood Type B Positive Antibody Screen Negative Crossmatch See Detail 11/08/24 11/09/24 23:55 02:47 WBC RBC Hgb 8.9 L Hct 27.7 L MCV MCH MCHC RDW Plt Count MPV Immature Gran % (Auto) Neut % (Auto) Lymph % (Auto) [place] % (Auto) Eos % (Auto) Baso % (Auto) Lymph # (Auto) [place] # (Auto) Eos # (Auto) Baso # (Auto) Abs Immat Gran (auto) Absolute Neuts (auto) Absolute Nucleated RBC Nucleated RBC % Sodium 136 L Potassium 3.2 L Chloride 100 Carbon Dioxide 33 H Anion Gap 3 L BUN 11 Creatinine 3.62 H Estim Creat Clear Calc 14 Estimated GFR 16 L Glucose 78 Calcium 7.2 L Magnesium 2.0 Urine Color Dark yellow Urine Appearance Cloudy H Urine pH 7.5 Ur Specific [place] 1.016 Urine Protein 2+ H Urine Glucose (UA) Negative Urine Ketones Trace H Ur Blood (Man) Negative Urine Nitrate Negative Urine Bilirubin Negative Urine Urobilinogen 0.2 Add Ur Microanalysis Reviewed Leukocyte Esterase Rfl 1+ H Urine RBC 3-5 H Urine WBC 21-50 H Ur Squamous Epith Cells Many H Urine Bacteria 2+ H Urine Casts 0-2 Influenza A (RT-PCR) Influenza B (RT-PCR) RSV (RT-PCR) SARS-CoV-2 RNA (RT-PCR) Blood Type Antibody Screen Crossmatch
[2024-11-09] MEDS: PANTOPRAZOLE 40 MG TABLET PO ×2 (14:07→21:00)
--- NOTE | 2024-11-09 15:37 | ADMGEN ---
This patient, Umesh Miller, was admitted to IMU Room 203-01. Patient/family oriented to hospital policies and general routines including ID bracelet, bed and alarms, visiting hours, pain management, procedures, bathroom and other care routines, personal items, smoking policy, room service/diet, and visiting hours. Information on how to activate the Rapid Response Team has been discussed. Patient/Family are encouraged to report perceived risks to care and to ask questions if they do not understand what they are told or what they should do.
[2024-11-09] MEDS: carvediloL 25 MG TABLET PO (16:28)
[2024-11-09] MEDS: FUROSEMIDE 80 MG TABLET PO (16:28)
[2024-11-09 18:46] LABS: IFOB Positive Control Positive; Immunochemical Fecal Occult Bl Negative (N)
[2024-11-10] VITALS (13 sets, daily range): BP systolic 145–183; BP diastolic 75–99; PULSE 66–85; RESP 16–24; TEMP 36.3–37.1; O2SAT 99–100
[2024-11-10] MEDS: hydrALAZINE HCL 20 MG/ML VIAL 10 MG IV PUSH (00:35)
[2024-11-10] MEDS: ACETAMINOPHEN 325 MG TABLET 650 MG PO ×3 (01:31→17:09)
[2024-11-10 05:00] LABS: Basophils Percent Auto 0.2 % (0.2-1.2); Eosinophils Percent Auto 0.1 % (0-4.4); Hematocrit 27.4 % (37.0-47.0); Hemoglobin 8.9 g/dL (12.0-15.0); Immature Granulocyte Absolute 0.05 K/mm3 (0.00-0.031); Immature Granulocyte Percent A 0.5 % (0-0.5); Immature Platelet Fraction Pct 3.1 % (0.9-11.2); Lymphocytes Absolute Auto 1.15 K/mm3 (0.9-3.2); Lymphocytes Percent Auto 11.7 % (18.3-44.2); Mean Corpuscular HGB Conc 32.5 g/dl (32-36); Mean Corpuscular Hemoglobin 29.2 pg (26-34); Mean Corpuscular Volume 89.8 fl (80-100); Mean Platelet Volume 10.9 fl (7.4-10.4); Monocytes Absolute Auto 1.6 K/mm3 (0.1-0.6); Monocytes Percent Auto 16.1 % (2.6-8.5); Neutrophils Percent Auto 71.4 % (45.5-73.1); Platelet Count Result 143 k/mm3 (150-375); Red Blood Count 3.05 M/mm3 (4.2-5.4); Red Cell Distribution Width 15.9 % (11.5-14.5); White Blood Count 9.8 K/mm3 (4.5-10.0)
[2024-11-10 05:13] LABS: Alanine Aminotransferase 21 U/L (6-35); Albumin Level 2.3 g/dL (3.5-5.1); Alkaline Phosphatase 105 U/L (38-126); Anion Gap 2 mmol/L (4-12); Aspartate Amino Transferase 34 U/L (14-36); Bilirubin,Total 1.1 mg/dL (0.2-1.3); Blood Urea Nitrogen 12 mg/dL (7-17); Calcium 7.5 mg/dL (8.4-10.2); Carbon Dioxide 31 mmol/L (22-30); Chloride 99 mmol/L (98-107); Estimated CRCL calculation 9 ml/min; Estimated Glomerular Filt Rate 10; Glucose 80 mg/dL (65-110); Potassium 2.9 mmol/L (3.4-5.0); Sodium 132 mmol/L (137-145)
[2024-11-10] MEDS: CHOLECALCIFEROL 1,000 UNITS TABLET 2000 UNITS PO (08:46)
[2024-11-10] MEDS: POTASSIUM CHLORIDE 20 MEQ ER TABLET PO (08:46)
[2024-11-10] MEDS: dilTIAZem HCL CD 120 MG CAP.24HR PO (08:47)
[2024-11-10] MEDS: TACROLIMUS 0.5 MG CAPSULE 1 MG BY MOUTH ×2 (08:47→21:51)
[2024-11-10] MEDS: ATORVASTATIN 20 MG TABLET PO (08:49)
[2024-11-10] MEDS: carvediloL 25 MG TABLET PO ×2 (08:51→21:51)
[2024-11-10] MEDS: FUROSEMIDE 80 MG TABLET PO ×2 (08:51→17:04)
[2024-11-10] MEDS: PANTOPRAZOLE 40 MG TABLET PO ×2 (08:51→21:51)
[2024-11-10] MEDS: DOXAZOSIN MESYLATE 4 MG TABLET 8 MG PO (08:52)
--- NOTE | 2024-11-10 10:06 | P.CONNP_ITS ---
Assessment and Plan Assessment and plan (1) End stage renal disease: Code(s): N18.6 - End stage renal disease Status: Acute Assessment and Plan: The patient has end-stage renal disease. This is due to lupus and hypertension. The patient last dialyzed on Monday. Get another treatment tomorrow. Volume status looks okay by chest x-ray and by physical exam. Potassium is actually low. She may not eat much food with potassium in it and also she does take Lasix 80mg twice a day. We will do her on a 4K bath tomorrow. (2) Anemia in chronic kidney disease: Code(s): N18.9 - Chronic kidney disease, unspecified; D63.1 - Anemia in chronic kidney disease Status: Acute Assessment and Plan: Hemoglobin is low this is too low to be explained only by the kidneys. Possibilities include occult GI bleeding. Her stool guaiac was negative however. Sometimes this can be intermittent such as from diverticuli the patient has not noticed any black or bloody stools. Another possibility would be her lupus. She has had low-grade fevers for the last 3 months which would be unlikely to be due to infection. Will check some lupus parameters. Infection of course can cause anemia because of its affect on the effectiveness of Epogen. The patient is getting cultures blood cultures are positive. She is on antibiotics. There is an order to get an echocardiogram. Hepatosplenomegaly is a possibility her other sort of consumptive process. Will check an LDH and retic count. Iron deficiency could do this of course. They check this at the dialysis center so they would be giving her iron if it is low. So will check iron levels, reticulocyte count, LDH, will see what her echo shows an would get a an abdominal ultrasound to look at the liver and the spleen. (3) Renal osteodystrophy: Code(s): N25.0 - Renal osteodystrophy Status: Acute Assessment and Plan: Will check a phosphorus in the morning (4) UTI (urinary tract infection): Code(s): N39.0 - Urinary tract infection, site not specified Status: Acute Assessment and Plan: The patient has positive blood cultures and pyuria. This may be strep bacteremia with a secondary UTI. The patient is on Levaquin and vancomycin. (5) Essential (primary) hypertension: Code(s): I10 - Essential (primary) hypertension Status: Acute Assessment and Plan: Blood pressure is high. She is on carvedilol diltiazem doxazosin and p.r.n. hydralazine. Potassium is low so will get a renin and an aldosterone as well as serum catecholamines. (6) Mixed hyperlipidemia: Code(s): E78.2 - Mixed hyperlipidemia Status: Acute Assessment and Plan: The patient is on atorvastatin (7) Chronic lupus nephritis: Code(s): M32.14 - Glomerular disease in systemic lupus erythematosus Status: Acute Assessment and Plan: Will check for activity. She is not taking any medications in particular for this however she is on prednisone plus tacro for her transplant. (8) Hypokalemia: Code(s): E87.6 - Hypokalemia Status: Acute History of Present Illness Reason for Consult Consult date: 11/10/24 Chief Complaint Chief complaint: Fever in dialysis patient, acute on chronic anemia History of Present Illness Narrative: Umesh santiago is a very pleasant 54-year-old lady who has end-stage renal disease on hemodialysis Wednesdays under Dr. Michael, lupus with lupus nephritis, status post kidney transplant, history of migraines, hypertension, history of blood clots, hyperlipidemia, anemia, renal osteodystrophy. The patient has been on dialysis 3 times a week. He has been doing well on the machine is getting to her dry weight. The patient says that she had some sort of a viral infection July for which she went to urgent care. She eventually got better but since then she has been running low-grade fevers off and on. She felt especially bad these last few days and on Monday they had some blood work checked and her hemoglobin was in the 6 is so she was sent to the ER after dialysis. In the ER she was found to be very anemic. They gave her some blood and her hemoglobin improved from 6.3-8.9. Unfortunately 0 iron studies were done. The patient is supposed to see a livestock slaughterer at some point because of the anemia. She says that she has never had black stools or bloody stools. She does take tacrolimus because of the leftover renal function from her kidney transplant. She is getting Epogen. It is not clear why she is becoming anemic. Review of Systems 2 Constitutional: Constitutional: Reports no additional constitutional complaints Eyes: Eyes: Reports no additional eye complaints ENT: Reports system reviewed and no additional complaints, except as documented Cardiovascular: Cardiovascular: Reports no additional cardiovascular complaints Respiratory: Respiratory: Reports no additional respiratory complaints Gastrointestinal: Gastrointestinal: Reports no additional gastrointestinal complaints Genitourinary: Genitourinary: Reports no additional female genitourinary complaints Musculoskeletal: Musculoskeletal: Reports no additional musculoskeletal complaints Integumentary/Breasts: Skin/Breast: Reports system reviewed and no additional complaints, except as docu Neurologic: Reports system reviewed and no additional complaints, except as documented Psychiatric: Psychiatric: Reports no additional psychiatric complaints Endocrine: Endocrine: Reports no additional endocrine complaints [facility] Past Medical History Medical History Colon polyps Diarrhea Rectal bleeding History of kidney disease Allergies Screening mammogram, encounter for Dialysis patient renal failure History of endometrial biopsy (~01/23/16) menometrorrhagia Anemia Trichomonas vaginalis (TV) infection (05/04/16) High cholesterol HPV in female Abnormal Pap smear of cervix 07/14/15 lgsil ; 05/08/14 lgsil; 10/16/12 ASCUS / +HPV Hx of blood clots (~12/2012) 3 rt leg, 2 rt arm History of 2019 novel coronavirus disease (COVID-19) Chronic kidney disease, stage 5, kidney failure Chronic lupus nephritis Glomerular disorders in diseases classified elsewhere Hypertensive chronic kidney disease with stage 1 through stage 4 chronic kidney disease, or unspecified chronic kidney disease Intractable migraine without aura and without status migrainosus Surgical History Surgical History History of total hysterectomy February 2017 History of elective x2 History of robot-assisted laparoscopic hysterectomy RA TLH w/RSO--HGSIL, ovarian cyst, leiomyoma H/O LEEP 12/31/15 HGSIL TRAVIS II History of dilation and curettage (08/03/15) hscope d&c/Novasure endometrial ablation History of endometrial ablation (08/03/15) hscope d&c/Novasure endometrial ablation History of left salpingo-oophorectomy (08/31/15) EXP LAP, LSO, ADHESIOLYSIS left dermoid cyst, left & right hydrosalpinx History of colposcopy with cervical biopsy 12/13/12 TRAVIS I 09/02/15 TRAVIS II 12/09/15 HGSIL History of ovarian cystectomy (07/11/07) EXP LAP; RIGHT OVARIAN CYSTECTOMY, R PARTIAL SALPINGECTOMY - R Ovarian Cyst, R hydrosalpinx History of laparoscopy (03/23/05) dx lap, chromopertubation - bilateral salpinx, pelvic adhesions, left ovarian enlargement, bilaterally blocked fallopian tubes Kidney transplant recipient (~08/2019) Family History Family History Mother Hypertension Father Family history of type 2 diabetes mellitus Family history of heart disease in male family member before age 55 Cerebrovascular accident Hypertension Diabetes mellitus Other Cancer Diabetes mellitus Hypertension Family history of heart disease in male family member before age 55 Social History Social History Smoking status: Never smoker Second hand tobacco smoke exposure: Yes Alcohol intake: never Substance use: never Substance use type: does not use Do You Feel Safe in your Home?: Yes Lack of Transportation: No Lack of Food: Never True Current Housing: I Have Housing Concerned About Future Housing: No Difficulty Paying Gas/Electric Bills: No Difficulty Paying for Meds: No Currently Unemployed: No Education: Decline to Answer Difficulty w/ Childcare or Family Care: Decline to Answer Living arrangements: alone Additional living arrangements comments: Occupation/Education: occupation 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 [employer] Gender identity (if verbalized by the patient): Female Sexual Orientation (if Verbalized by the Patient): Straight or Heterosexual Spiritual care concerns: No Meds Home Medications and Allergies Home Medications ?Medication ?Instructions ?Recorded ?Confirmed ?Type cholecalciferol (vitamin D3) 50 2,000 unit PO DAILY 10/02/19 11/09/24 History mcg (2,000 unit) tablet prednisolone 5 mg tablet 5 mg PO DAILY 10/02/19 11/09/24 History tacrolimus 1 mg capsule, 1 mg PO Q12H 10/02/19 11/09/24 History immediate-release furosemide 80 mg tablet 80 mg PO BID 05/24/22 11/09/24 History doxazosin 8 mg tablet 8 mg PO DAILY 06/09/22 11/09/24 History biotin 10,000 mcg capsule 10,000 mcg PO DAILY 08/02/22 11/09/24 History multivitamin and minerals 1 tablet PO DAILY 09/12/22 11/09/24 History no.11-folic acid 5 mg tablet (Dialyvite 5000) atorvastatin 20 mg tablet 20 mg PO DAILY #90 tabs 02/08/24 11/09/24 Rx carvedilol 25 mg tablet 25 mg PO BID #60 tabs 05/09/24 11/09/24 Rx diltiazem HCl 120 mg See Rx Instructions .Route 08/23/24 11/09/24 Rx capsule,extended release 24 hr .COMPLEX #90 caps Allergies Allergy/AdvReac Type Severity Reaction Status Date / Time lisinopril Allergy Severe Swelling Verified 10/10/24 11:04 of Lip/Tongue/Throat Penicillins Allergy Severe Swelling Verified 10/10/24 11:04 of Lip/Tongue/Throat CHRIST Inhibitors Allergy Intermediate SWELLING Verified 10/10/24 11:04 ibuprofen Allergy Intermediate UNABLE TO Verified 10/10/24 11:04 TAKE WITH LUPUS NEPHRITIS Vital Signs Vital Signs - 24 hr 11/09/24 11:13 11/09/24 14:16 11/09/24 15:52 Temperature 98.8 F Pulse Rate 76 82 73 Respiratory Rate 15 22 H 18 Blood Pressure 180/86 H 168/84 H 162/81 H Pulse Oximetry 98 96 98 Oxygen Delivery 11/09/24 16:00 11/09/24 16:00 11/09/24 16:28 Temperature Pulse Rate 66 70 Respiratory Rate Blood Pressure Pulse Oximetry Oxygen Delivery Room Air 11/09/24 18:00 11/09/24 20:00 11/09/24 20:00 Temperature Pulse Rate 67 64 Respiratory Rate Blood Pressure Pulse Oximetry Oxygen Delivery Room Air 11/09/24 20:59 11/09/24 22:00 11/10/24 00:00 Temperature 98.7 F Pulse Rate 72 56 L 76 Respiratory Rate 18 Blood Pressure 159/77 H Pulse Oximetry 97 Oxygen Delivery 11/10/24 00:00 11/10/24 00:07 11/10/24 02:00 Temperature 98.7 F Pulse Rate 68 80 Respiratory Rate 18 Blood Pressure 182/79 H Pulse Oximetry 100 Oxygen Delivery Room Air 11/10/24 03:25 11/10/24 04:00 11/10/24 04:03 Temperature 98.7 F Pulse Rate 85 79 Respiratory Rate 18 Blood Pressure 160/75 H Pulse Oximetry 100 Oxygen Delivery Room Air 11/10/24 06:00 11/10/24 08:00 11/10/24 08:00 Temperature 97.8 F Pulse Rate 69 77 Respiratory Rate 24 H Blood Pressure 183/86 H Pulse Oximetry 99 Oxygen Delivery Room Air 11/10/24 08:51 Temperature Pulse Rate 75 Respiratory Rate Blood Pressure Pulse Oximetry Oxygen Delivery Exam 2 Narrative: Exam Narrative: Well developed well-nourished female in no acute distress Skin is warm and dry without rash Head normocephalic atraumatic Eyes normal sclerae and conjunctivae Mouth normal lips teeth and gums Neck no nodes no thyromegaly no carotid bruits Axillae no nodes Back no CVA tenderness Lungs symmetric and clear to auscultation and percussion Heart regular rate and rhythm without rub or gallop Abdomen bowel sounds positive soft nontender, no HSM, masses, or bruits. Extremities no cyanosis, clubbing, or edema Pulses 2+ equal in radial arteries Psychological not anxious or depressed Neuro alert and oriented x3 motor 5/5 cranial nerves 2-12 intact reflexes 2+ and equal in the biceps and patellar tendons cerebellar normal rapid alternating movements Results Lab Results 11/10/24 04:23 11/10/24 04:23 Lab results: Most recent lab results Calcium 7.5 mg/dL (8.4-10.2) L 11/10/24 04:23 Magnesium 2.0 mg/dL (1.6-2.3) 11/10/24 04:23
[2024-11-10] MEDS: VANCOMYCIN 1,250 MG/NS 250 ML 1,250 MG/250 ML BAG 166.67 MG IVPB (10:36)
[2024-11-10 10:38] LABS: Immature Reticulocyte Fraction 26.2 % (3.0-15.9); Reticulocyte Hemoglobin Conten 32.4 pg (28.2-36.6); Reticulocyte Percent 1.68 % (0.7-4.3); Reticulocytes Absolute 0.05 10^6/uL (0.02-0.10)
[2024-11-10 10:45] LABS: Creatine Kinase < 20 U/L (30-135)
[2024-11-10 10:45] LABS: Iron 32 ug/dL (37-170)
[2024-11-10 10:49] LABS: CRP 7.5 mg/dL (<1.0)
[2024-11-10 10:53] LABS: Complement C3 50 mg/dL (88-165)
[2024-11-10 10:56] LABS: Percent Iron Saturation 38 % (20-50)
[2024-11-10 11:56] LABS: Strep Group A RT-PCR NOT DETECTED (Negative)
[2024-11-10 11:56] LABS: Folic Acid > 20.0 ng/mL (2.76->20); Vitamin B12 > 1000.0 pg/mL (239-931)
[2024-11-10 12:17] LABS: Erythrocyte Sedimentation Rate 87 mm/hr (0-20)
--- NOTE | 2024-11-10 12:32 | PM.IMPN ---
Progress Note: A&P Assessment and Plan (1) UTI (urinary tract infection): Code(s): N39.0 - Urinary tract infection, site not specified Status: Acute (2) Anemia in chronic kidney disease: Code(s): N18.9 - Chronic kidney disease, unspecified; D63.1 - Anemia in chronic kidney disease Status: Acute (3) Essential (primary) hypertension: Code(s): I10 - Essential (primary) hypertension Status: Acute (4) Dialysis patient: Code(s): Z99.2 - Dependence on renal dialysis Status: Acute (5) Immunosuppression: Code(s): D89.9 - Disorder involving the immune mechanism, unspecified Status: Acute (6) Chronic lupus nephritis: Code(s): M32.14 - Glomerular disease in systemic lupus erythematosus Status: Acute Plan This is a 54-year-old female went to dialysis on Monday and completed her treatment without concern. They tested her blood was noted to be anemic and hence was sent to ED for evaluation. He had had previous admissions for similar reason in the past. Denies any active bleeding no blood in stool or urine. She is status post complete hysterectomy. Last colonoscopy in July 2024 was unremarkable. She has been feeling generally weak and also short of breath. She has been having intermittent fever for several weeks now. On arrival to the ED see was borderline febrile with a temperature of 37.9?. Otherwise vitals were stable except for elevated blood pressure. Laboratory studies showed CBC with hemoglobin of 6.3. Chem panel was unremarkable except for underlying CKD and low potassium of 2.7. Patient tested negative for COVID RSV and flu. Chest x-ray with no acute cardiopulmonary disease. UA positive for UTI EKG did not show any acute ST-T changes. She received 2 units of packed red blood cell transfusion overnight. Her post transfusion hemoglobin is 8.9. and remains stable. occult blood stool negative. Fever: Blood culture obtained. Follow blood culture. Urinalysis does note evidence of UTI. blood culture came back positive for GPC chains. check strep throat swab. will get echo as well. bacteremia: GPC in chains. will add vancomycin. check strp throat swab. get echo.patient immunocompromised UTI started on levofloxacin. Follow urine culture. History of lupus nephritis status post kidney transplant which failed and back on dialysis again Colon polyps Diarrhea intermittent reported. Will get stool studies End-stage renal disease on hemodialysis nephrology consult for inpatient hemodialysis Monday History of DVT in 2012 Migraine Hypertension DVT prophylaxis SCDs Code status full code Subjective Date/time seen: 11/10/24 12:32 Interval history: no overnight events, no nausea, vomiting. no sob, chest pain. Review of Systems Review of Systems: All systems reviewed & are unremarkable except as noted in HPI and below Exam Narrative: GENERAL: Well-appearing, well-nourished, and in no acute distress. HEAD: Normocephalic, atraumatic. EYES: Equal pupils are equal reactive, bilateral conjunctival pallor noted ENT: Nares clear, no rhinorrhea or epistaxis. Mucous membranes moist. NECK: Supple. CHEST: Clear to auscultation. No respiratory distress. HEART: Regular rate and rhythm. No murmur heard. Normal peripheral pulses. Left upper extremity AV fistula with strong palpable thrill ABDOMEN: Soft, nondistended, nontender, No rigidity or guarding EXTREMITIES: Normal range of motion. No edema SKIN: Warm, dry, no rash. NEURO: No focal deficits. Alert and oriented x3. PSYCH: Normal mood and affect. Objective Data Vital Signs Vital Signs: Vital Signs - 24 hr 11/09/24 14:16 11/09/24 15:52 11/09/24 16:00 Temperature 98.8 F Pulse Rate 82 73 Respiratory Rate 22 H 18 Blood Pressure 168/84 H 162/81 H Pulse Oximetry 96 98 Oxygen Delivery Room Air 11/09/24 16:00 11/09/24 16:28 11/09/24 18:00 Temperature Pulse Rate 66 70 67 Respiratory Rate Blood Pressure Pulse Oximetry Oxygen Delivery 11/09/24 20:00 11/09/24 20:00 11/09/24 20:59 Temperature 98.7 F Pulse Rate 64 72 Respiratory Rate 18 Blood Pressure 159/77 H Pulse Oximetry 97 Oxygen Delivery Room Air 11/09/24 22:00 11/10/24 00:00 11/10/24 00:00 Temperature Pulse Rate 56 L 76 Respiratory Rate Blood Pressure Pulse Oximetry Oxygen Delivery Room Air 11/10/24 00:07 11/10/24 02:00 11/10/24 03:25 Temperature 98.7 F Pulse Rate 68 80 Respiratory Rate 18 Blood Pressure 182/79 H Pulse Oximetry 100 Oxygen Delivery Room Air 11/10/24 04:00 11/10/24 04:03 11/10/24 06:00 Temperature 98.7 F Pulse Rate 85 79 69 Respiratory Rate 18 Blood Pressure 160/75 H Pulse Oximetry 100 Oxygen Delivery 11/10/24 08:00 11/10/24 08:00 11/10/24 08:00 Temperature 97.8 F Pulse Rate 77 75 Respiratory Rate 24 H Blood Pressure 183/86 H Pulse Oximetry 99 Oxygen Delivery Room Air 11/10/24 08:51 11/10/24 10:00 Temperature Pulse Rate 75 73 Respiratory Rate Blood Pressure Pulse Oximetry Oxygen Delivery Intake/Output Intake/Output: Intake & Output 11/07/24 11/08/24 11/09/24 11/10/24 23:59 23:59 23:59 23:59 Intake Total 700 760 900 Output Total 50 100 Balance 700 710 800 Meds/Results Medications: Active Medications Generic Name Dose Route Start Last Admin Trade Name Freq PRN Reason Stop Dose Admin Acetaminophen 650 mg 11/08/24 22:54 11/10/24 08:46 Acetaminophen 325 Mg Tablet PO 650 mg Q4H PRN Administration Mild Pain (1-3) or Fever Atorvastatin Calcium 20 mg 11/09/24 09:00 11/10/24 08:49 Atorvastatin 20 Mg Tablet PO 20 mg DAILY MARIANO Administration Carvedilol 25 mg 11/09/24 17:00 11/10/24 08:51 Carvedilol 25 Mg Tablet PO 25 mg BID MARIANO Administration Diltiazem HCl 120 mg 11/09/24 09:30 11/10/24 08:47 Diltiazem Hcl Cd 120 Mg Cap.24hr PO 120 mg DAILY MARIANO Administration Doxazosin Mesylate 8 mg 11/09/24 09:00 11/10/24 08:52 Doxazosin Mesylate 4 Mg Tablet PO 8 mg DAILY MARIANO Administration Furosemide 80 mg 11/09/24 17:00 11/10/24 08:51 Furosemide 80 Mg Tablet PO 80 mg BID MARIANO Administration Levofloxacin/Dextrose 750 mg in 150 mls @ 100 mls/hr 11/11/24 05:00 Levaquin 750 Mg/D5w 150 Ml IVPB Q48H MARIANO Albumin Human 50 mls @ 999 mls/hr 11/10/24 10:21 Albutein IVPB 11/11/24 10:20 Q10M PRN HYPOTENSION Miscellaneous Information 1 each 11/09/24 00:01 11/10/24 05:20 Prednisolone Tablet Nonformulary. Can Patient Bring From Home Or Hold Till Discharge? XX 12/09/24 00:00 Not Given CLARIFY MARIANO Multivitamins/Calcium 1 tablet 11/10/24 09:00 11/10/24 08:54 Therapeutic Multivitamins/Minerals Tab (*Bkc) PO Not Given DAILY MARIANO Non-Formulary Medication 5 mg 11/10/24 09:00 Prednisolone PO 12/10/24 08:59 DAILY MARIANO Ondansetron HCl 4 mg 11/09/24 08:12 Ondansetron Inj 4 Mg/2 Ml Vial IV PUSH Q6H PRN Nausea And Vomiting Pantoprazole Sodium 40 mg 11/09/24 13:20 11/10/24 08:51 Pantoprazole 40 Mg Tablet PO 40 mg Q12HR MARIANO Administration Tacrolimus 1 mg 11/09/24 10:00 11/10/24 08:47 Tacrolimus 0.5 Mg Capsule BY MOUTH 1 mg Q12HR MARIANO Administration Vancomycin HCl 1 each 11/10/24 08:51 Vancomycin For Hemodialysis IVPB PRN PRN Vancomycin Protocol Vitamin D 2,000 units 11/09/24 09:00 11/10/24 08:46 Cholecalciferol 1,000 Units Tablet PO 2,000 units DAILY MARIANO Administration Radiology Results: ITS Impressions Chest X-Ray 11/08/24 15:37 IMPRESSION: No acute cardiopulmonary process. Hip/Pelvis X-Ray 11/08/24 20:28 IMPRESSION: No acute osseous finding in the pelvis or left hip. Labs Labs: Laboratory Results - last 24 hr 11/09/24 11/10/24 11/10/24 18:26 04:20 04:22 WBC RBC Hgb Hct MCV MCH MCHC RDW Plt Count MPV Immature Gran % (Auto) Neut % (Auto) Lymph % (Auto) Andrew % (Auto) Eos % (Auto) Baso % (Auto) Lymph # (Auto) Andrew # (Auto) Eos # (Auto) Baso # (Auto) Abs Immat Gran (auto) Absolute Neuts (auto) Absolute Nucleated RBC Nucleated RBC % % Immature Plt Fraction ESR Absolute Retic 0.05 Percent Retic 1.68 Immature Retic Fraction 26.2 H Retic Hgb Content 32.4 Sodium Potassium Chloride Carbon Dioxide Anion Gap BUN Creatinine Estim Creat Clear Calc Estimated GFR Glucose Calcium Magnesium Iron 32 L TIBC 84 L % Saturation 38 Ferritin 587.00 H Total Bilirubin AST ALT Alkaline Phosphatase Total Creatine Kinase < 20 L C-Reactive Protein 7.5 H Total Protein Albumin Vitamin B12 > 1000.0 H Folate > 20.0 H Stl Occult Blood (IFOB) Negative Complement C3 50 L Complement C4 9.9 L Group A Strep (PCR) 11/10/24 11/10/24 11/10/24 04:23 11:18 11:22 WBC 9.8 RBC 3.05 L Hgb 8.9 L Hct 27.4 L MCV 89.8 MCH 29.2 MCHC 32.5 RDW 15.9 H Plt Count 143 L MPV 10.9 H Immature Gran % (Auto) 0.5 Neut % (Auto) 71.4 Lymph % (Auto) 11.7 L Andrew % (Auto) 16.1 H Eos % (Auto) 0.1 Baso % (Auto) 0.2 Lymph # (Auto) 1.15 Andrew # (Auto) 1.6 H Eos # (Auto) 0.0 Baso # (Auto) 0.0 Abs Immat Gran (auto) 0.05 H Absolute Neuts (auto) 7.0 H Absolute Nucleated RBC 0.000 Nucleated RBC % 0.0 % Immature Plt Fraction 3.1 ESR 87 H Absolute Retic Percent Retic Immature Retic Fraction Retic Hgb Content Sodium 132 L Potassium 2.9 L Chloride 99 Carbon Dioxide 31 H Anion Gap 2 L BUN 12 Creatinine 5.49 H Estim Creat Clear Calc 9 Estimated GFR 10 L Glucose 80 Calcium 7.5 L Magnesium 2.0 Iron TIBC % Saturation Ferritin Total Bilirubin 1.1 AST 34 ALT 21 Alkaline Phosphatase 105 Total Creatine Kinase C-Reactive Protein Total Protein 7.0 Albumin 2.3 L Vitamin B12 Folate Stl Occult Blood (IFOB) Complement C3 Complement C4 Group A Strep (PCR) Not detected
--- NOTE | 2024-11-10 14:40 | PC.NURSE ---
This patient, Umesh Miller, was transferred to [facility] on 11/10/24 at 1440. Personal belongings sent with patient. Report given to FRANCHESCA Schultz. Appropriate documentation sent with patient.
--- NOTE | 2024-11-10 18:52 | PC.NURSE ---
This patient, Umesh Miller, was received from IMU on 11/10/24 at 1440. Report received from FRANCHESCA Mills. Patient/family oriented to unit policies and routines
[2024-11-11] VITALS (19 sets, daily range): BP systolic 124–183; BP diastolic 72–90; PULSE 66–88; RESP 16–18; TEMP 36.8; O2SAT 99–100
--- NOTE | 2024-11-11 | ECHO_ITS ---
Patient Info Name: Umesh Miller Age: 54 years : 1970 Gender: Female Ht: 63 in Wt: 139 lbs BSA: 1.68 m2 HR: 81 bpm BP: 183 / 90 mmHg Technical Quality: Good Exam Date: 11/11/2024 3:23 PM Exam Location: Echo Lab Patient Status: Inpatient Admit Date: 11/09/2024 Staff Ordering Physician: Kang King MD Risk Control Specialist: Lainey Frank RDCS Attending Provider: Charlie Lynn MD Exam Type: CA echo doppler color flow Study Info Indications - BACTEREMIA Complete two-dimensional, color flow and Doppler transthoracic echocardiogram is performed. Strain analysis performed. Summary 1. Complete two-dimensional, color flow and Doppler transthoracic echocardiogram is performed. 2. Left ventricular chamber dimension is normal. 3. Left ventricular systolic function is normal, estimated at 65-70%. 4. There is moderate concentric increased left ventricular wall thickness. 5. The left ventricular diastolic function is grade I diastolic dysfunction. 6. E/e' 20 is elevated. 7. Global longitudinal strain is normal at -19.2%. 8. There is trace aortic valve regurgitation. 9. There is mild mitral valve regurgitation. 10. Small mobile echogenic mass measuring 0.5 cm attached to anterior mitral valve leaflet suggestive of vegetation. 11. There is mild tricuspid valve regurgitation. 12. No pulmonary hypertension, estimated pulmonary arterial systolic pressure is 32 mmHg. 13. There is trace pulmonic regurgitation. Left Ventricle E/e' 20 is elevated. Global longitudinal strain is normal at -19.2%. Left ventricular chamber dimension is normal. Left ventricular systolic function is normal, estimated at 65-70%. There is moderate concentric increased left ventricular wall thickness. The left ventricular diastolic function is grade I diastolic dysfunction. Right Ventricle Right ventricular chamber dimension is normal. Right ventricular systolic function is normal. Left Atria Left atrial chamber dimension is normal. Right Atria Right atrial chamber dimension is normal. Aortic Valve The aortic valve is trileaflet. There is no aortic valve stenosis. There is trace aortic valve regurgitation. No aortic valve vegetation visualized. Pulmonic Valve There is trace pulmonic regurgitation. No pulmonic valve vegetation visualized. Mitral Valve Small mobile echogenic mass measuring 0.5 cm attached to anterior mitral valve leaflet suggestive of vegetation. There is no mitral valve stenosis. There is mild mitral valve regurgitation. Tricuspid Valve There is mild tricuspid valve regurgitation. No pulmonary hypertension, estimated pulmonary arterial systolic pressure is 32 mmHg. No tricuspid valve vegetation visualized. Pericardium/Pleural There is no pericardial effusion. Inferior Vena Cava Normal inferior vena cava with >50% collapse upon inspiration consistent with normal right atrial pressure, 5 mmHg. Aorta The aortic root size at the sinus of Valsalva is normal. Left Ventricular Outflow Tract Name Value Normal LVOT 2D LVOT Diameter 1.9 cm LVOT Doppler LVOT Peak Gradient 8 mmHg LVOT Mean Gradient 4 mmHg LVOT VTI 24 cm LVOT VTI/AV VTI Ratio 0.8 LVOT Stroke Volume 66 ml LVOT CO 5.2 l/min LVOT CI 3.1 l/min/m2 Pulmonic Valve Name Value Normal RVOT Doppler RVOT Peak Gradient 7 mmHg PV Doppler PV Peak Gradient 7 mmHg Mitral Valve Name Value Normal MV Doppler MV Decel [place] 551 cm/s2 MV PHT 54 ms MV Area (PHT) 4.0 cm2 4.0-5.0 MV Diastolic Function MV E Peak Velocity 103 cm/s MV A Peak Velocity 122 cm/s MV E/A 0.8 MV Decel Time 188 ms Tricuspid Valve Name Value Normal TV Regurgitation Doppler TR Peak Velocity 261 cm/s TR Peak Gradient 27 mmHg Estimated PAP/RSVP RA Pressure 5 mmHg <=5 PA Systolic Pressure 32 mmHg <36 RV Systolic Pressure 32 mmHg <36 Aorta Name Value Normal Ascending Aorta Ao Root Diameter (MM) 3.0 cm Ao Root Diam Index (MM) 1.8 cm/m2 Aortic Valve Name Value Normal AV Doppler AV Peak Velocity 171 cm/s AV Peak Gradient 12 mmHg AV Mean Gradient 6 mmHg AV VTI 29 cm AV Area (Cont Eq VTI) 2.3 cm2 >=3.0 AV Area (Cont Eq Cezar) 2.3 cm2 AV Regurgitation 2D LVOT Area 2.7 cm2 Ventricles Name Value Normal LV Dimensions 2D/MM IVS Diastolic Thickness (2D) 1.6 cm 0.6-1.0 IVS Diastole Thickness (MM) 1.3 cm 0.6-0.9 LVID Diastole (2D) 4.0 cm 3.8-5.2 LVID Diastole (MM) 4.9 cm 3.8-5.2 LVIW Diastolic Thickness (2D) 1.5 cm 0.6-0.9 LVIW Diastolic Thickness (MM) 1.4 cm 0.6-0.9 LVID Systole (2D) 2.6 cm 2.2-3.5 LVID Systole (MM) 2.3 cm 2.2-3.5 LVOT Diameter 1.9 cm LV Mass (2D Cubed) 255.43 g 67.00-162.00 LV Mass Index (2D Cubed) 152 g/m2 43-95 Relative Wall Thickness (2D) 0.77 LV Mass (MM Cubed) 273.63 g 67.00-162.00 LV Mass Index (MM Cubed) 162 g/m2 43-95 Relative Wall Thickness (MM) 0.58 LV Fractional Shortening/Ejection Fraction 2D/MM LV Fractional Shortening (2D) 36 % 27-45 LV Fractional Shortening (MM) 52 % 27-45 LV EF (MM Teicholz) 83 % 54-74 LV EF (2D Teicholz) 67 % 54-74 LV Diastolic Volume (4C MOD) 70 ml LV EF (4C MOD) 69 % LV Diastolic Volume (2C MOD) 94 ml LV EF (2C MOD) 65 % LV Diastolic Volume (BP MOD) 81 ml 46-106 LV Diastolic Volume Index (BP MOD) 48 ml/m2 29-61 LV Systolic Volume (BP MOD) 27 ml 14-42 LV Systolic Volume Index (BP MOD) 16 ml/m2 8-24 LV EF (BP MOD) 67 % 54-74 LV Diastolic Length (4C) 8.4 cm LV Systolic Length (4C) 6.3 cm LV Stroke Volume (4C MOD) 48 ml Atria Name Value Normal LA Dimensions LA Dimension (MM) 3.8 cm 2.7-3.8 LA Volume (4C A-L) 30 ml LA Volume (BP A-L) 38 ml RA Dimensions RA Area (4C) 9.5 cm2 <=18.0 EchoPAC Name Value Normal AutoEF LVCO_BiP_Q (Npwa0IAT) 4.6 l/min LVEF_BiP_Q (Yrmm3IWK) 61 % LVSV_BiP_Q (Vwgk3GQR) 68 ml LVVED_BiP_Q (Zasm7WFK) 110 ml LVVES_BiP_Q (Whlb2KKD) 43 ml HR_4Ch_Q (Dmng0PVQ) 70 bpm LVCO_4Ch_Q (Semj5RPT) 4.2 l/min LVEF_4Ch_Q (Xvpn9SHU) 64 % LVLd_4Ch_Q (Amph4ESM) 8.3 cm LVLs_4Ch_Q (Wmin3RHU) 6.9 cm LVSV_4Ch_Q (Dqfc2RUE) 60 ml LVVED_4Ch_Q (Xttp5ZZT) 93 ml LVVES_4Ch_Q (Uxtm1VOY) 34 ml HR_2Ch_Q (Dbqs3YDE) 70 bpm LVCO_2Ch_Q (Ubkm1HCZ) 5.1 l/min LVEF_2Ch_Q (Hvqk3XFL) 58 % LVLd_2Ch_Q (Asvj7OAS) 8.5 cm LVLs_2Ch_Q (Mtlh6ONE) 6.8 cm LVSV_2Ch_Q (Mihy5FLZ) 72 ml LVVED_2Ch_Q (Lvsh4WIL) 126 ml LVVES_2Ch_Q (Wivh5WYE) 53 ml KEY AA peak sys SL (AWMA) 25.4 % AAS peak sys SL (AWMA) 32.0 % AI peak sys SL (AWMA) 29.4 % AL peak sys SL (AWMA) 25.1 % AP peak sys SL (AWMA) 24.5 % peak sys SL (AWMA) 33.0 % AVC (AWMA) 396 ms BA peak sys SL (AWMA) 12.2 % BAS peak sys SL (AWMA) 12.3 % BI peak sys SL (AWMA) 13.8 % BL peak sys SL (AWMA) 9.5 % BP peak sys SL (AWMA) 17.6 % BS peak sys SL (AWMA) 10.8 % G peak SL(A2C) (AWMA) 19.3 % G peak SL(A4C) (AWMA) 18.0 % G peak SL(APLAX) (AWMA) 20.5 % G peak SL(Avg) (AWMA) 19.3 % MA peak sys SL (AWMA) 14.3 % MAS peak sys SL (AWMA) 21.7 % MD peak sys SL (AWMA) 19.4 % ML peak sys SL (AWMA) 12.0 % MP peak sys SL (AWMA) 14.7 % MS peak sys SL (AWMA) 17.3 % Report Signatures
[2024-11-11] MEDS: levoFLOXacin 750 MG/D5W 150 ML 750 MG/150 ML BAG 100 MG IVPB (05:51)
[2024-11-11] MEDS: hydrALAZINE HCL 20 MG/ML VIAL 10 MG IV PUSH (05:52)
[2024-11-11] MEDS: ACETAMINOPHEN 325 MG TABLET 650 MG PO ×2 (06:11→18:12)
[2024-11-11 06:32] LABS: Basophils Percent Auto 0.2 % (0.2-1.2); Eosinophils Percent Auto 0.4 % (0-4.4); Hematocrit 33.9 % (37.0-47.0); Hemoglobin 9.8 g/dL (12.0-15.0); Immature Granulocyte Absolute 0.04 K/mm3 (0.00-0.031); Immature Granulocyte Percent A 0.5 % (0-0.5); Lymphocytes Absolute Auto 1.41 K/mm3 (0.9-3.2); Lymphocytes Percent Auto 16.6 % (18.3-44.2); Mean Corpuscular HGB Conc 28.9 g/dl (32-36); Mean Corpuscular Hemoglobin 28.8 pg (26-34); Mean Corpuscular Volume 99.7 fl (80-100); Mean Platelet Volume 10.4 fl (7.4-10.4); Monocytes Absolute Auto 0.7 K/mm3 (0.1-0.6); Monocytes Percent Auto 8.7 % (2.6-8.5); Neutrophils Absolute Auto 6.3 K/mm3 (1.3-6.7); Neutrophils Percent Auto 73.6 % (45.5-73.1); Platelet Count Result 161 k/mm3 (150-375); Red Cell Distribution Width 16.5 % (11.5-14.5); White Blood Count 8.5 K/mm3 (4.5-10.0)
[2024-11-11 06:48] LABS: Alanine Aminotransferase 18 U/L (6-35); Albumin Level 2.4 g/dL (3.5-5.1); Alkaline Phosphatase 105 U/L (38-126); Anion Gap 3 mmol/L (4-12); Aspartate Amino Transferase 22 U/L (14-36); Bilirubin,Total 0.8 mg/dL (0.2-1.3); Blood Urea Nitrogen 17 mg/dL (7-17); Calcium 7.5 mg/dL (8.4-10.2); Carbon Dioxide 28 mmol/L (22-30); Chloride 101 mmol/L (98-107); Estimated CRCL calculation 7 ml/min; Estimated Glomerular Filt Rate 7; Glucose 85 mg/dL (65-110); Potassium 3.5 mmol/L (3.4-5.0); Sodium 132 mmol/L (137-145)
[2024-11-11 06:54] LABS: Vancomycin Random 21.6 ug/mL (10-20)
[2024-11-11 07:19] LABS: Hepatitis B Surface Antigen Negative (Negative)
[2024-11-11 07:36] LABS: Hepatitis B Surface Anti Res Negative
[2024-11-11 08:11] LABS: Anisocytosis 1+; Large Platelets Present; Platelet Estimate Adequate (Adequate)
[2024-11-11 08:12] LABS: Burr Cells 1+; Ovalocytes 1+; Schistocytes None Seen
[2024-11-11] MEDS: CHOLECALCIFEROL 1,000 UNITS TABLET 2000 UNITS PO (09:49)
[2024-11-11] MEDS: TACROLIMUS 0.5 MG CAPSULE 1 MG BY MOUTH ×2 (09:50→21:27)
[2024-11-11] MEDS: DOXAZOSIN MESYLATE 4 MG TABLET 8 MG PO (09:51)
[2024-11-11] MEDS: dilTIAZem HCL CD 120 MG CAP.24HR PO (09:52)
[2024-11-11] MEDS: ATORVASTATIN 20 MG TABLET PO (09:52)
[2024-11-11] MEDS: carvediloL 25 MG TABLET PO ×2 (09:53→21:25)
--- NOTE | 2024-11-11 10:42 | P.PNIM_ITS ---
Progress Note: A&P Assessment and Plan (1) UTI (urinary tract infection): Code(s): N39.0 - Urinary tract infection, site not specified Status: Acute (2) Anemia in chronic kidney disease: Code(s): N18.9 - Chronic kidney disease, unspecified; D63.1 - Anemia in chronic kidney disease Status: Acute (3) Essential (primary) hypertension: Code(s): I10 - Essential (primary) hypertension Status: Acute (4) Dialysis patient: Code(s): Z99.2 - Dependence on renal dialysis Status: Acute (5) Immunosuppression: Code(s): D89.9 - Disorder involving the immune mechanism, unspecified Status: Acute (6) Chronic lupus nephritis: Code(s): M32.14 - Glomerular disease in systemic lupus erythematosus Status: Acute Plan This is a 54-year-old female with past medical history significant for lupus nephritis, end-stage renal disease on hemodialysis, failed kidney transplant, anemia of chronic disease. Patient dialyzes 3 times a week comes to the emergency room due to episode of fever, patient denies any cough, nausea, vomiting, has been in her usual state of health up until this point. Preliminary workup in emergency room was significant for hemoglobin of 6.3, a urinalysis was significant for numerous WBCs present. Severe anemia Denies any active bleeding no blood in stool or urine. She is status post complete hysterectomy. Last colonoscopy in July 2024 was unremarkable. She has been feeling generally weak and also short of breath. She has been having intermittent fever for several weeks now. On arrival to the ED see was borderline febrile with a temperature of 37.9?. Otherwise vitals were stable except for elevated blood pressure. Laboratory studies showed CBC with hemoglobin of 6.3. received 2 units of packed red blood cell transfusion overnight. Her post transfusion hemoglobin is 8.9. and remains stable. occult blood stool negative. Possible due to end-stage renal disease consult wash crew person for evaluation treatment End-stage renal disease, hypokalemia Chem panel was unremarkable except for underlying CKD and low potassium of 2.7. Management per wash crew person Fever, possible due to UTI and bacteremia Patient tested negative for COVID RSV and flu. Chest x-ray with no acute cardiopulmonary disease. UA positive for UTI EKG did not show any acute ST-T changes. Blood culture grow Enterococcus faecalis. Urinalysis does note evidence of UTI. Urine culture grows Enterococcus pending echo report bacteremia: Patient on levofloxacin and vancomycin. Discontinue Levaquin, continue vancomycin Dosing per pharmacist Pending echo Repeat blood culture today UTI see above History of lupus nephritis status post kidney transplant failed and back on dialysis again Colon polyps Diarrhea intermittent reported. Will get stool studies History of DVT in 2012 Migraine Hypertension DVT prophylaxis SCDs Code status full code Subjective Date/time seen: 11/11/24 10:42 Interval history: I saw exam patient patient on dialysis. Patient feels comfortable, denies headache, fever chills chest pain shortness of breath Blood culture and urine culture grows Enterococcus. No nausea, vomiting. no sob, chest pain. Patient is afebrile, blood pressure uncontrolled. Hemoglobin 9.8 Exam Narrative: GENERAL: Pleasant, in no acute distress. Well-nourished. - EYES: EOMI. Anicteric. - HENT: Moist mucous membranes. - LUNGS: Clear to auscultation bilateral ly, no wheezing, rhonchi, or rales. - CARDIOVASCULAR: Regular rate and rhyth m. No murmur. No JVD. - ABDOMEN: Soft, non-tender and non-dist ended. No palpable masses. - EXTREMITIES: No edema. Peripheral puls es 2+. Non-tender. - NEUROLOGIC: No focal neurological defi cits. CN II-XII grossly intact. - PSYCHIATRIC: Awake, Alert and oriented x 3. Appropriate mood and affect. General weakness - SKIN: No rashes or lesions. Warm. - LYMPH: No cervical lymphadenopathy. Objective Data Vital Signs Vital Signs: Vital Signs - 24 hr 11/10/24 12:00 11/10/24 16:00 11/10/24 21:49 Temperature 97.3 F L 98.7 F 97.9 F Pulse Rate 66 70 82 Respiratory Rate 16 20 16 Blood Pressure 177/99 H 160/76 H 145/87 H Pulse Oximetry 100 100 99 11/10/24 21:51 11/11/24 05:16 11/11/24 09:53 Temperature 98.2 F Pulse Rate 82 82 69 Respiratory Rate 16 Blood Pressure 183/90 H Pulse Oximetry 99 Intake/Output Intake/Output: Intake & Output 11/08/24 11/09/24 11/10/24 11/11/24 23:59 23:59 23:59 23:59 Intake Total 658 511 1471 518 Output Total 50 100 100 Balance 793 399 0420 418 Meds/Results Medications: Active Medications Generic Name Dose Route Start Last Admin Trade Name Freq PRN Reason Stop Dose Admin Acetaminophen 650 mg 11/08/24 22:54 11/11/24 06:11 Acetaminophen 325 Mg Tablet PO 650 mg Q4H PRN Administration Mild Pain (1-3) or Fever Atorvastatin Calcium 20 mg 11/09/24 09:00 11/11/24 09:52 Atorvastatin 20 Mg Tablet PO 20 mg DAILY MARIANO Administration Carvedilol 25 mg 11/10/24 21:00 11/11/24 09:53 Carvedilol 25 Mg Tablet PO 25 mg Q12HR MARIANO Administration Diltiazem HCl 120 mg 11/09/24 09:30 11/11/24 09:52 Diltiazem Hcl Cd 120 Mg Cap.24hr PO 120 mg DAILY MARIANO Administration Doxazosin Mesylate 8 mg 11/09/24 09:00 11/11/24 09:51 Doxazosin Mesylate 4 Mg Tablet PO 8 mg DAILY MARIANO Administration Epoetin Denzel-epbx 10,000 units 11/11/24 18:40 Epoetin Denzel-Epbx 10,000 Units/Ml Vial IV PUSH 11/11/24 18:41 ONCE ONE Furosemide 80 mg 11/09/24 17:00 11/11/24 09:55 Furosemide 80 Mg Tablet PO Not Given BID MARIANO Levofloxacin/Dextrose 750 mg in 150 mls @ 100 mls/hr 11/11/24 05:00 11/11/24 05:51 Levaquin 750 Mg/D5w 150 Ml IVPB 100 mls/hr Q48H MARIANO Administration Albumin Human 50 mls @ 999 mls/hr 11/10/24 10:21 Albutein IVPB 12/10/24 10:20 Q10M PRN HYPOTENSION Vancomycin HCl 500 mg in 100 mls @ 100 mls/hr 11/11/24 18:00 Vancomycin 500 Mg/Ns 100 Ml IVPB 11/11/24 18:59 ONCE ONE Miscellaneous Information 1 each 11/09/24 00:01 11/10/24 05:20 Prednisolone Tablet Nonformulary. Can Patient Bring From Home Or Hold Till Discharge? XX 12/09/24 00:00 Not Given CLARIFY MARIANO Non-Formulary Medication 5 mg 11/10/24 09:00 Prednisolone PO 12/10/24 08:59 DAILY MARIANO Ondansetron HCl 4 mg 11/09/24 08:12 Ondansetron Inj 4 Mg/2 Ml Vial IV PUSH Q6H PRN Nausea And Vomiting Pantoprazole Sodium 40 mg 11/09/24 13:20 11/11/24 09:54 Pantoprazole 40 Mg Tablet PO Not Given Q12HR MARIANO Perflutren Lipid Microsphere 0 ml 11/10/24 12:33 Perflutren Lipid Microspheres 1.5 Ml Vial Diluted To 10 Ml Total Volume IV PUSH 11/13/24 12:33 ONCE PRN adequate visualization Protocol Tacrolimus 1 mg 11/09/24 10:00 11/11/24 09:50 Tacrolimus 0.5 Mg Capsule BY MOUTH 1 mg Q12HR MARIANO Administration Vancomycin HCl 1 each 11/10/24 08:51 Vancomycin For Hemodialysis IVPB PRN PRN Vancomycin Protocol Vitamin D 2,000 units 11/09/24 09:00 11/11/24 09:49 Cholecalciferol 1,000 Units Tablet PO 2,000 units DAILY MARIANO Administration Radiology Results: ITS Impressions Chest X-Ray 11/08/24 15:37 IMPRESSION: No acute cardiopulmonary process. Hip/Pelvis X-Ray 11/08/24 20:28 IMPRESSION: No acute osseous finding in the pelvis or left hip. Abdomen Ultrasound 11/10/24 13:32 IMPRESSION: Prominent atrophy and increased echogenicity of the kidneys, consistent with chronic renal medical disease; no evidence of obstructive uropathy Renal cysts Spleen measures 13 cm length, within upper limits of normal (up to 14 cm) Labs Labs: Laboratory Results - last 24 hr 11/10/24 11/10/24 11/10/24 04:20 04:22 11:18 WBC RBC Hgb Hct MCV MCH MCHC RDW Plt Count MPV Immature Gran % (Auto) Neut % (Auto) Lymph % (Auto) [place] % (Auto) Eos % (Auto) Baso % (Auto) Lymph # (Auto) [place] # (Auto) Eos # (Auto) Baso # (Auto) Abs Immat Gran (auto) Absolute Neuts (auto) Absolute Nucleated RBC Nucleated RBC % Platelet Estimate Large Platelets Anisocytosis Ovalocytes [place] Cells Schistocytes ESR Sodium Potassium Chloride Carbon Dioxide Anion Gap BUN Creatinine Estim Creat Clear Calc Estimated GFR Glucose Calcium Magnesium Iron 32 L TIBC 84 L % Saturation 38 Ferritin 587.00 H Total Bilirubin AST ALT Alkaline Phosphatase Total Creatine Kinase < 20 L C-Reactive Protein 7.5 H Total Protein Albumin Vitamin B12 > 1000.0 H Folate > 20.0 H Random Vancomycin Complement C3 50 L Complement C4 9.9 L Hep Bs Antigen Hep Bs Antibody Group A Strep (PCR) Not detected 11/10/24 11/11/24 11:22 06:07 WBC 8.5 RBC 3.40 L Hgb 9.8 L Hct 33.9 L MCV 99.7 D MCH 28.8 MCHC 28.9 L RDW 16.5 H Plt Count 161 MPV 10.4 Immature Gran % (Auto) 0.5 Neut % (Auto) 73.6 H Lymph % (Auto) 16.6 L [place] % (Auto) 8.7 H Eos % (Auto) 0.4 Baso % (Auto) 0.2 Lymph # (Auto) 1.41 [place] # (Auto) 0.7 H Eos # (Auto) 0.0 Baso # (Auto) 0.0 Abs Immat Gran (auto) 0.04 H Absolute Neuts (auto) 6.3 Absolute Nucleated RBC 0.000 Nucleated RBC % 0.0 Platelet Estimate Adequate Large Platelets Present Anisocytosis 1+ Ovalocytes 1+ [place] Cells 1+ Schistocytes None seen ESR 87 H Sodium 132 L Potassium 3.5 Chloride 101 Carbon Dioxide 28 Anion Gap 3 L BUN 17 Creatinine 7.11 H Estim Creat Clear Calc 7 Estimated GFR 7 L Glucose 85 Calcium 7.5 L Magnesium 2.0 Iron TIBC % Saturation Ferritin Total Bilirubin 0.8 AST 22 ALT 18 Alkaline Phosphatase 105 Total Creatine Kinase C-Reactive Protein Total Protein 7.0 Albumin 2.4 L Vitamin B12 Folate Random Vancomycin 21.6 H Complement C3 Complement C4 Hep Bs Antigen Negative Hep Bs Antibody Negative Group A Strep (PCR)
--- NOTE | 2024-11-11 11:48 | P.PNNP_ITS ---
Progress Note: A&P Assessment and Plan (1) End stage renal disease: Code(s): N18.6 - End stage renal disease Status: Chronic Assessment and Plan: * HD tomorrow * continue outpatient M/W/F dialysis schedule * follow electrolytes, volume status, and clearance (2) Bacteremia: Code(s): R78.81 - Bacteremia Status: Acute Assessment and Plan: * Enterococcus faecalis in blood and urine cultures (from 11/09 and 11/08, respectively) * suspect urosepsis * may have progressed since on immunosuppression medications (to maintain residual kidney function of transplant kidney) * on antibiotics * follow repeat cultures (3) Anemia in chronic kidney disease: Code(s): N18.9 - Chronic kidney disease, unspecified; D63.1 - Anemia in chronic kidney disease Status: Acute Assessment and Plan: * H/H doing better * s/p PRBC transfusion * suspect possible resistance to PRESTON/Mircera due to #3 (?) * however, her lupus could be contributing as well * low complements noted * ELLEN pending; dsDNA-Ab negative * Hem/Onc consulted as well * Epogen with dialysis * follow trend of H/H (4) UTI (urinary tract infection): Code(s): N39.0 - Urinary tract infection, site not specified Status: Acute Assessment and Plan: * urine culture with Enterococcus as well * on antibiotics (5) Essential (primary) hypertension: Code(s): I10 - Essential (primary) hypertension Status: Chronic Assessment and Plan: * reasonable control * continue home BP medications * follow trend of hemodynamics Will continue to follow. L Subjective Date/time seen: 11/11/24 11:48 Interval history: Follow-up for end stage renal disease on hemodialysis. Chart reviewed -- assuming care from Dr. Sharpe; tolerating dialysis treatment at the time of my visit (seen on HD at 11:35AM); no apparent distress noted; no acute issues/events overnight or earlier today; H/H relatively stable at this time; culture (blood and urine) results noted. Exam 2 Narrative: General: WD/WN female in NAD Heart: normal S1 and S2; no rub Lungs: clear to auscultation Abdomen: soft, nontender, nondistended, positive bowel sounds Extremities: no cyanosis or clubbing; no edema Skin: warm and dry Objective Data Vital Signs Vital Signs: Vital Signs Temp Pulse Resp BP Pulse Ox O2 Del Method 11/11/24 11:45 74 142/79 H 11/11/24 11:30 71 154/81 H 11/11/24 11:04 66 163/81 H 11/11/24 09:53 69 11/11/24 08:00 Room Air 11/11/24 05:16 98.2 F 82 16 183/90 H 99 11/10/24 21:51 82 11/10/24 21:49 97.9 F 82 16 145/87 H 99 Intake/Output Intake/Output: Intake & Output 11/08/24 11/09/24 11/10/24 11/11/24 23:59 23:59 23:59 23:59 Intake Total 919 786 2934 758 Output Total 50 100 1210 Balance 641 039 5306 -452 Meds/Results Medications: Active Medications Generic Name Dose Route Start Last Admin Trade Name Freq PRN Reason Stop Dose Admin Acetaminophen 650 mg 11/08/24 22:54 11/11/24 18:12 Acetaminophen 325 Mg Tablet PO 650 mg Q4H PRN Administration Mild Pain (1-3) or Fever Atorvastatin Calcium 20 mg 11/09/24 09:00 11/11/24 09:52 Atorvastatin 20 Mg Tablet PO 20 mg DAILY MARIANO Administration Carvedilol 25 mg 11/10/24 21:00 11/11/24 09:53 Carvedilol 25 Mg Tablet PO 25 mg Q12HR MARIANO Administration Diltiazem HCl 120 mg 11/09/24 09:30 11/11/24 09:52 Diltiazem Hcl Cd 120 Mg Cap.24hr PO 120 mg DAILY MARIANO Administration Doxazosin Mesylate 8 mg 11/09/24 09:00 11/11/24 09:51 Doxazosin Mesylate 4 Mg Tablet PO 8 mg DAILY MARIANO Administration Furosemide 80 mg 11/09/24 17:00 11/11/24 18:05 Furosemide 80 Mg Tablet PO Not Given BID MARIANO Albumin Human 50 mls @ 999 mls/hr 11/10/24 10:21 Albutein IVPB 12/10/24 10:20 Q10M PRN HYPOTENSION Miscellaneous Information 1 each 11/09/24 00:01 11/10/24 05:20 Prednisolone Tablet Nonformulary. Can Patient Bring From Home Or Hold Till Discharge? XX 12/09/24 00:00 Not Given CLARIFY [facility] Non-Formulary Medication 5 mg 11/10/24 09:00 Prednisolone PO 12/10/24 08:59 DAILY [facility] Ondansetron HCl 4 mg 11/09/24 08:12 Ondansetron Inj 4 Mg/2 Ml Vial IV PUSH Q6H PRN Nausea And Vomiting Pantoprazole Sodium 40 mg 11/09/24 13:20 11/11/24 09:54 Pantoprazole 40 Mg Tablet PO Not Given Q12HR MARIANO Perflutren Lipid Microsphere 0 ml 11/10/24 12:33 Perflutren Lipid Microspheres 1.5 Ml Vial Diluted To 10 Ml Total Volume IV PUSH 11/13/24 12:33 ONCE PRN adequate visualization Protocol Tacrolimus 1 mg 11/09/24 10:00 11/11/24 09:50 Tacrolimus 0.5 Mg Capsule BY MOUTH 1 mg Q12HR MARIANO Administration Vancomycin HCl 1 each 11/10/24 08:51 Vancomycin For Hemodialysis IVPB PRN PRN Vancomycin Protocol Vitamin D 2,000 units 11/09/24 09:00 11/11/24 09:49 Cholecalciferol 1,000 Units Tablet PO 2,000 units DAILY MARIANO Administration Radiology Results: ITS Impressions Chest X-Ray 11/08/24 15:37 IMPRESSION: No acute cardiopulmonary process. Hip/Pelvis X-Ray 11/08/24 20:28 IMPRESSION: No acute osseous finding in the pelvis or left hip. Abdomen Ultrasound 11/10/24 13:32 IMPRESSION: Prominent atrophy and increased echogenicity of the kidneys, consistent with chronic renal medical disease; no evidence of obstructive uropathy Renal cysts Spleen measures 13 cm length, within upper limits of normal (up to 14 cm) Labs Labs: Laboratory Tests 11/11/24 06:07 11/11/24 06:07 Calcium 7.5 L Magnesium 2.0 Total Bilirubin 0.8 AST 22 ALT 18 Alkaline Phosphatase 105 Total Protein 7.0 Albumin 2.4 L Microbiology 11/08/24 23:55 Urine Catheterized Urine Culture - Final Enterococcus faecalis 11/09/24 02:47 Blood Blood Culture - Preliminary Enterococcus faecalis 11/09/24 02:47 Blood Blood Culture - Preliminary Enterococcus faecalis
[2024-11-11] MEDS: EPOETIN ALFA-EPBX 10,000 UNITS/ML VIAL 10000 UNITS IV PUSH (14:33)
[2024-11-11 15:54] LABS: Complement Total CH50 59 U/mL (31-60)
[2024-11-11] MEDS: VANCOMYCIN 500 MG/NS 100 ML 500 MG/100 ML BAG 100 MG IVPB (18:07)
[2024-11-12] MEDS: ACETAMINOPHEN 325 MG TABLET 650 MG PO ×2 (05:53→15:44)
[2024-11-12 06:20] VITALS: BP 154/80; PULSE 71; RESP 18; TEMP 36.9; O2SAT 100
[2024-11-12 07:04] LABS: Hemoglobin 9.1 g/dL (12.0-15.0); Mean Corpuscular HGB Conc 31.4 g/dl (32-36); Mean Corpuscular Hemoglobin 28.7 pg (26-34); Mean Corpuscular Volume 91.5 fl (80-100); Mean Platelet Volume 10.4 fl (7.4-10.4); Platelet Count Result 164 k/mm3 (150-375); Red Blood Count 3.17 M/mm3 (4.2-5.4); Red Cell Distribution Width 16.2 % (11.5-14.5); White Blood Count 7.1 K/mm3 (4.5-10.0)
[2024-11-12 07:39] LABS: Albumin Level 2.3 g/dL (3.5-5.1); Anion Gap 1 mmol/L (4-12); Blood Urea Nitrogen 5 mg/dL (7-17); Calcium 7.6 mg/dL (8.4-10.2); Carbon Dioxide 28 mmol/L (22-30); Chloride 103 mmol/L (98-107); Estimated CRCL calculation 13 ml/min; Estimated Glomerular Filt Rate 15; Glucose 81 mg/dL (65-110); Phosphorus 1.6 mg/dL (2.5-4.5); Potassium 3.4 mmol/L (3.4-5.0); Sodium 132 mmol/L (137-145)
[2024-11-12 08:43] VITALS: O2SAT 99
[2024-11-12] MEDS: CHOLECALCIFEROL 1,000 UNITS TABLET 2000 UNITS PO (08:56)
[2024-11-12] MEDS: TACROLIMUS 0.5 MG CAPSULE 1 MG BY MOUTH ×2 (08:59→20:32)
[2024-11-12] MEDS: FUROSEMIDE 80 MG TABLET PO ×2 (09:01→17:07)
[2024-11-12] MEDS: ATORVASTATIN 20 MG TABLET PO (09:01)
--- NOTE | 2024-11-12 10:06 | P.PNNP_ITS ---
Progress Note: A&P Assessment and Plan (1) End stage renal disease: Code(s): N18.6 - End stage renal disease Status: Chronic Assessment and Plan: * HD yesterday - next treatment tomorrow * continue outpatient M/W/F dialysis schedule * follow electrolytes, volume status, and clearance (2) Infective endocarditis: Code(s): 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 Status: Acute Assessment and Plan: * as noted by Echo (on 11/11): * left ventricular systolic function is normal, estimated at 65-70% * trace aortic valve regurgitation * mild mitral valve regurgitation * small mobile echogenic mass measuring 0.5 cm attached to anterior mitral valve leaflet suggestive of vegetation * mild tricuspid valve regurgitation * on antibiotics (3) Bacteremia: Code(s): R78.81 - Bacteremia Status: Acute Assessment and Plan: * culture results noted: * blood cultures (from 11/09) - Enterococcus faecalis * urine culture (from 11/08) - Enterococcus faecalis * blood culture (from 11/11) - pending * now complicated by #2 * this issues may have progressed since on immunosuppression medications (to maintain residual kidney function of transplant kidney) * on antibiotics * follow repeat cultures (4) Anemia in chronic kidney disease: Code(s): N18.9 - Chronic kidney disease, unspecified; D63.1 - Anemia in chronic kidney disease Status: Acute Assessment and Plan: * H/H doing better * s/p PRBC transfusion * suspect possible resistance to PRESTON/Mircera due to #3 (?) * however, her lupus could be contributing as well * low complements noted -- related to #2 (?) * ELLEN pending; dsDNA-Ab negative * Hem/Onc consulted as well * Epogen with dialysis * follow trend of H/H (5) UTI (urinary tract infection): Code(s): N39.0 - Urinary tract infection, site not specified Status: Acute Assessment and Plan: * urine culture with Enterococcus as well * on antibiotics (6) Essential (primary) hypertension: Code(s): I10 - Essential (primary) hypertension Status: Chronic Assessment and Plan: * reasonable control * continue home BP medications * follow trend of hemodynamics Will continue to follow. L Subjective Date/time seen: 11/12/24 10:06 Interval history: Follow-up for end stage renal disease on hemodialysis. Tolerated dialysis treatment yesterday without any issues or problems; overall, she states she is feeling significantly better in comparison to admission -- has more energy with noted increase in appetite as well as oral intake; no apparent distress noted; no events overnight or earlier this morning. Exam 2 Narrative: General: WD/WN female in NAD Heart: normal S1 and S2; no rub Lungs: clear to auscultation Abdomen: soft, nontender, nondistended, positive bowel sounds Extremities: no cyanosis or clubbing; no edema Skin: warm and intact Objective Data Vital Signs Vital Signs: Vital Signs Temp Pulse Resp BP Pulse Ox O2 Del Method 11/12/24 09:02 69 11/12/24 08:43 99 Room Air 11/12/24 06:20 98.5 F 71 18 154/80 H 100 11/11/24 22:00 88 18 142/86 H 100 11/11/24 21:27 Room Air 11/11/24 21:25 88 Intake/Output Intake/Output: Intake & Output 11/09/24 11/10/24 11/11/24 11/12/24 23:59 23:59 23:59 23:59 Intake Total 760 1120 758 100 Output Total 50 100 1210 0 Balance 710 1020 -452 100 Meds/Results Medications: Active Medications Generic Name Dose Route Start Last Admin Trade Name Freq PRN Reason Stop Dose Admin Acetaminophen 650 mg 11/08/24 22:54 11/12/24 15:44 Acetaminophen 325 Mg Tablet PO 650 mg Q4H PRN Administration Mild Pain (1-3) or Fever Atorvastatin Calcium 20 mg 11/09/24 09:00 11/12/24 09:01 Atorvastatin 20 Mg Tablet PO 20 mg DAILY MARIANO Administration Carvedilol 25 mg 11/10/24 21:00 11/12/24 09:02 Carvedilol 25 Mg Tablet PO 25 mg Q12HR MARIANO Administration Diltiazem HCl 120 mg 11/09/24 09:30 11/12/24 09:02 Diltiazem Hcl Cd 120 Mg Cap.24hr PO 120 mg DAILY MARIANO Administration Doxazosin Mesylate 8 mg 11/09/24 09:00 11/12/24 08:59 Doxazosin Mesylate 4 Mg Tablet PO 8 mg DAILY MARIANO Administration Furosemide 80 mg 11/09/24 17:00 11/12/24 17:07 Furosemide 80 Mg Tablet PO 80 mg BID MARIANO Administration Albumin Human 50 mls @ 999 mls/hr 11/10/24 10:21 Albutein IVPB 12/10/24 10:20 Q10M PRN HYPOTENSION Miscellaneous Information 1 each 11/09/24 00:01 11/10/24 05:20 Prednisolone Tablet Nonformulary. Can Patient Bring From Home Or Hold Till Discharge? XX 12/09/24 00:00 Not Given CLARIFY MARIANO Non-Formulary Medication 5 mg 11/10/24 09:00 Prednisolone PO 12/10/24 08:59 DAILY MARIANO Ondansetron HCl 4 mg 11/09/24 08:12 Ondansetron Inj 4 Mg/2 Ml Vial IV PUSH Q6H PRN Nausea And Vomiting Pantoprazole Sodium 40 mg 11/09/24 13:20 11/12/24 09:02 Pantoprazole 40 Mg Tablet PO Not Given Q12HR MARIANO Perflutren Lipid Microsphere 0 ml 11/10/24 12:33 Perflutren Lipid Microspheres 1.5 Ml Vial Diluted To 10 Ml Total Volume IV PUSH 11/13/24 12:33 ONCE PRN adequate visualization Protocol Tacrolimus 1 mg 11/09/24 10:00 11/12/24 08:59 Tacrolimus 0.5 Mg Capsule BY MOUTH 1 mg Q12HR MARIANO Administration Vancomycin HCl 1 each 11/10/24 08:51 Vancomycin For Hemodialysis IVPB PRN PRN Vancomycin Protocol Vitamin D 2,000 units 11/09/24 09:00 11/12/24 08:56 Cholecalciferol 1,000 Units Tablet PO 2,000 units DAILY MARIANO Administration Radiology Results: ITS Impressions Chest X-Ray 11/08/24 15:37 IMPRESSION: No acute cardiopulmonary process. Hip/Pelvis X-Ray 11/08/24 20:28 IMPRESSION: No acute osseous finding in the pelvis or left hip. Abdomen Ultrasound 11/10/24 13:32 IMPRESSION: Prominent atrophy and increased echogenicity of the kidneys, consistent with chronic renal medical disease; no evidence of obstructive uropathy Renal cysts Spleen measures 13 cm length, within upper limits of normal (up to 14 cm) Labs Labs: Laboratory Tests 11/12/24 06:26 11/12/24 06:26 Calcium 7.6 L Phosphorus 1.6 L Albumin 2.3 L Microbiology 11/10/24 22:00 Stool Escherichia coli Shiga Toxins - Final 11/10/24 22:00 Stool Campylobacter Antigen Assay - Final 11/09/24 02:47 Blood Blood Culture - Final Enterococcus faecalis 11/08/24 23:55 Urine Catheterized Urine Culture - Final Enterococcus faecalis
--- NOTE | 2024-11-12 10:10 | PM.IMPN ---
Progress Note: A&P Assessment and Plan (1) UTI (urinary tract infection): Code(s): N39.0 - Urinary tract infection, site not specified Status: Acute (2) Anemia in chronic kidney disease: Code(s): N18.9 - Chronic kidney disease, unspecified; D63.1 - Anemia in chronic kidney disease Status: Acute (3) Essential (primary) hypertension: Code(s): I10 - Essential (primary) hypertension Status: Acute (4) Dialysis patient: Code(s): Z99.2 - Dependence on renal dialysis Status: Acute (5) Immunosuppression: Code(s): D89.9 - Disorder involving the immune mechanism, unspecified Status: Acute (6) Chronic lupus nephritis: Code(s): M32.14 - Glomerular disease in systemic lupus erythematosus Status: Acute (7) Infective endocarditis: Code(s): 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 Status: Acute Plan This is a 54-year-old female with past medical history significant for lupus nephritis, end-stage renal disease on hemodialysis, failed kidney transplant, anemia of chronic disease. Patient dialyzes 3 times a week comes to the emergency room due to episode of fever, patient denies any cough, nausea, vomiting, has been in her usual state of health up until this point. Preliminary workup in emergency room was significant for hemoglobin of 6.3, a urinalysis was significant for numerous WBCs present. Severe anemia Denies any active bleeding no blood in stool or urine. She is status post complete hysterectomy. Last colonoscopy in July 2024 was unremarkable. She has been feeling generally weak and also short of breath. She has been having intermittent fever for several weeks now. On arrival to the ED see was borderline febrile with a temperature of 37.9?. Otherwise vitals were stable except for elevated blood pressure. Laboratory studies showed CBC with hemoglobin of 6.3. received 2 units of packed red blood cell transfusion overnight. Her post transfusion hemoglobin is 8.9. and remains stable. occult blood stool negative. Possible due to end-stage renal disease consult silica dry press helper for evaluation treatment End-stage renal disease, hypokalemia Chem panel was unremarkable except for underlying CKD and low potassium of 2.7. Management per silica dry press helper Fever, possible due to UTI and bacteremia Patient tested negative for COVID RSV and flu. Chest x-ray with no acute cardiopulmonary disease. UA positive for UTI EKG did not show any acute ST-T changes. Blood culture grow Enterococcus faecalis. Urinalysis does note evidence of UTI. Urine culture grows Enterococcus echo report: 1. Complete two-dimensional, color flow and Doppler transthoracic echocardiogram is performed. 2. Left ventricular chamber dimension is normal. 3. Left ventricular systolic function is normal, estimated at 65-70%. 4. There is moderate concentric increased left ventricular wall thickness. 5. The left ventricular diastolic function is grade I diastolic dysfunction. 6. E/e' 20 is elevated. 7. Global longitudinal strain is normal at -19.2%. 8. There is trace aortic valve regurgitation. 9. There is mild mitral valve regurgitation. 10. Small mobile echogenic mass measuring 0.5 cm attached to anterior mitral valve leaflet suggestive of vegetation. 11. There is mild tricuspid valve regurgitation. 12. No pulmonary hypertension, estimated pulmonary arterial systolic pressure is 32 mmHg. 13. There is trace pulmonic regurgitation. Infective endocarditis and bacteremia Patient on levofloxacin and vancomycin. Discontinue Levaquin, continue vancomycin Dosing per pharmacist Repeat blood culture general 13 pending Small mobile echogenic mass measuring 0.5 cm attached to anterior mitral valve leaflet suggestive of vegetation. bacteremia: UTI see above History of lupus nephritis status post kidney transplant failed and back on dialysis again Colon polyps Diarrhea intermittent reported. Will get stool studies History of DVT in 2013 Migraine Hypertension DVT prophylaxis SCDs Code status full code Called [facility] and discussed with cardiac service surgeon, plans to transfer the patient to [facility] Subjective Date/time seen: 11/12/24 10:10 Interval history: I saw exam patient patient on dialysis. Patient feels comfortable, denies headache, fever chills chest pain shortness of breath Blood culture and urine culture grows Enterococcus. No nausea, vomiting. no sob, chest pain. Patient is afebrile, blood pressure uncontrolled. repeated bcx grows Gram-positive cocci, echocardiogram shows mitral vegetation Exam Narrative: GENERAL: Pleasant, in no acute distress. Well-nourished. - EYES: EOMI. Anicteric. - HENT: Moist mucous membranes. - LUNGS: Clear to auscultation bilaterally, no wheezing, rhonchi, or rales. - CARDIOVASCULAR: Regular rate and rhythm. No murmur. No JVD. - ABDOMEN: Soft, non-tender and non-distended. No palpable masses. - EXTREMITIES: No edema. Peripheral pulses 2+. Non-tender. - NEUROLOGIC: No focal neurological deficits. CN II-XII grossly intact. - PSYCHIATRIC: Awake, Alert and oriented x 3. Appropriate mood and affect. General weakness - SKIN: No rashes or lesions. Warm. - LYMPH: No cervical lymphadenopathy. Objective Data Vital Signs Vital Signs: Vital Signs - 24 hr 11/11/24 11:04 11/11/24 11:30 11/11/24 11:45 Temperature Pulse Rate 66 71 74 Respiratory Rate Blood Pressure 163/81 H 154/81 H 142/79 H Pulse Oximetry Oxygen Delivery 11/11/24 12:00 11/11/24 12:15 11/11/24 12:30 Temperature Pulse Rate 77 78 84 Respiratory Rate Blood Pressure 147/78 H 148/80 H 142/76 H Pulse Oximetry Oxygen Delivery 11/11/24 12:45 11/11/24 13:00 11/11/24 13:15 Temperature Pulse Rate 81 80 87 Respiratory Rate Blood Pressure 147/72 H 141/74 H 144/75 H Pulse Oximetry Oxygen Delivery 11/11/24 13:30 11/11/24 13:45 11/11/24 14:00 Temperature Pulse Rate 84 81 71 Respiratory Rate Blood Pressure 146/77 H 141/74 H 158/80 H Pulse Oximetry Oxygen Delivery 11/11/24 14:15 11/11/24 14:30 11/11/24 14:40 Temperature Pulse Rate 86 81 84 Respiratory Rate Blood Pressure 158/80 H 124/76 141/80 H Pulse Oximetry Oxygen Delivery 11/11/24 21:25 11/11/24 21:27 11/11/24 22:00 Temperature Pulse Rate 88 88 Respiratory Rate 18 Blood Pressure 142/86 H Pulse Oximetry 100 Oxygen Delivery Room Air 11/12/24 06:20 11/12/24 08:43 11/12/24 09:02 Temperature 98.5 F Pulse Rate 71 69 Respiratory Rate 18 Blood Pressure 154/80 H Pulse Oximetry 100 99 Oxygen Delivery Room Air Intake/Output Intake/Output: Intake & Output 11/09/24 11/10/24 11/11/24 11/12/24 23:59 23:59 23:59 23:59 Intake Total 760 1120 758 0 Output Total 50 100 1210 0 Balance 710 1020 -452 0 Meds/Results Medications: Active Medications Generic Name Dose Route Start Last Admin Trade Name Freq PRN Reason Stop Dose Admin Acetaminophen 650 mg 11/08/24 22:54 11/12/24 05:53 Acetaminophen 325 Mg Tablet PO 650 mg Q4H PRN Administration Mild Pain (1-3) or Fever Atorvastatin Calcium 20 mg 11/09/24 09:00 11/12/24 09:01 Atorvastatin 20 Mg Tablet PO 20 mg DAILY MARIANO Administration Carvedilol 25 mg 11/10/24 21:00 11/12/24 09:02 Carvedilol 25 Mg Tablet PO 25 mg Q12HR MARIANO Administration Diltiazem HCl 120 mg 11/09/24 09:30 11/12/24 09:02 Diltiazem Hcl Cd 120 Mg Cap.24hr PO 120 mg DAILY MARIANO Administration Doxazosin Mesylate 8 mg 11/09/24 09:00 11/12/24 08:59 Doxazosin Mesylate 4 Mg Tablet PO 8 mg DAILY MARIANO Administration Furosemide 80 mg 11/09/24 17:00 11/12/24 09:01 Furosemide 80 Mg Tablet PO 80 mg BID MARIANO Administration Albumin Human 50 mls @ 999 mls/hr 11/10/24 10:21 Albutein IVPB 12/10/24 10:20 Q10M PRN HYPOTENSION Miscellaneous Information 1 each 11/09/24 00:01 11/10/24 05:20 Prednisolone Tablet Nonformulary. Can Patient Bring From Home Or Hold Till Discharge? XX 12/09/24 00:00 Not Given CLARIFY MARIANO Non-Formulary Medication 5 mg 11/10/24 09:00 Prednisolone PO 12/10/24 08:59 DAILY MARIANO Ondansetron HCl 4 mg 11/09/24 08:12 Ondansetron Inj 4 Mg/2 Ml Vial IV PUSH Q6H PRN Nausea And Vomiting Pantoprazole Sodium 40 mg 11/09/24 13:20 11/12/24 09:02 Pantoprazole 40 Mg Tablet PO Not Given Q12HR MARIANO Perflutren Lipid Microsphere 0 ml 11/10/24 12:33 Perflutren Lipid Microspheres 1.5 Ml Vial Diluted To 10 Ml Total Volume IV PUSH 11/13/24 12:33 ONCE PRN adequate visualization Protocol Tacrolimus 1 mg 11/09/24 10:00 11/12/24 08:59 Tacrolimus 0.5 Mg Capsule BY MOUTH 1 mg Q12HR MARIANO Administration Vancomycin HCl 1 each 11/10/24 08:51 Vancomycin For Hemodialysis IVPB PRN PRN Vancomycin Protocol Vitamin D 2,000 units 11/09/24 09:00 11/12/24 08:56 Cholecalciferol 1,000 Units Tablet PO 2,000 units DAILY MARIANO Administration Radiology Results: ITS Impressions Chest X-Ray 11/08/24 15:37 IMPRESSION: No acute cardiopulmonary process. Hip/Pelvis X-Ray 11/08/24 20:28 IMPRESSION: No acute osseous finding in the pelvis or left hip. Abdomen Ultrasound 11/10/24 13:32 IMPRESSION: Prominent atrophy and increased echogenicity of the kidneys, consistent with chronic renal medical disease; no evidence of obstructive uropathy Renal cysts Spleen measures 13 cm length, within upper limits of normal (up to 14 cm) Labs Labs: Laboratory Results - last 24 hr 11/10/24 11/12/24 11:22 06:26 WBC 7.1 RBC 3.17 L Hgb 9.1 L Hct 29.0 L MCV 91.5 D MCH 28.7 MCHC 31.4 L RDW 16.2 H Plt Count 164 MPV 10.4 Sodium 132 L Potassium 3.4 Chloride 103 Carbon Dioxide 28 Anion Gap 1 L BUN 5 L D Creatinine 3.75 H Estim Creat Clear Calc 13 Estimated GFR 15 L Glucose 81 Calcium 7.6 L Phosphorus 1.6 L Albumin 2.3 L Anti-DNA Antibody <1 Tot Complement (CH50) 59
[2024-11-12 14:00] VITALS: BP 123/62; PULSE 80; RESP 20; TEMP 36.7; O2SAT 100
[2024-11-12 17:08] LABS: Kappa\\Lambda Light Chains 16.19 (0.26-1.65); Lambda Light Chain 41.1 mg/L (5.7-26.3)
--- NOTE | 2024-11-12 18:55 | P.CONONC_ITS ---
Assessment and Plan Assessment and plan (1) Anemia in chronic kidney disease: Code(s): N18.9 - Chronic kidney disease, unspecified; D63.1 - Anemia in chronic kidney disease Status: Acute Plan Anemia of chronic kidney disease. Patient has a history nephritis and chronic kidney disease started on hemodialysis in 2018. Aspirin in 2018 but unfortunately failed in 2020 when she was placed back on hemodialysis. Labs showed drop in hemoglobin of 6 point improved after blood transfusion. She was diagnosed endocarditis with bacteremia. Infection was likely the cause of decline in her baseline hemoglobin. Other labs showed slightly low iron level but normal iron saturation and elevated ferritin. Vitamin B2 so elevated. Patient will continue Epogen injection with the hemodialysis. She will follow- up with us in the office for further management and monitoring of her anemia. I have answered all the Questions to patient's satisfaction. UTI, bacteremia and infective endocarditis.. Patient is on antibiotics. HPI Data of Consult Date/Time: 11/12/24 18:55 Requesting Physician: Charlie Lynn MD Primary Care Provider: Vinny Lugo DO Consult Narrative Narrative: Umesh Miller is a 54 year old female with history of end-stage renal disease, lupus nephritis and anemia of chronic disease. Patient diagnosis with end-stage renal disease in 2018. In 2019 Patient had kidney transplant and that she fails and went back on hemodialysis in 2020. Patient came into the hospital with complain of fever and found to have hemoglobin of 6.3. Patient was diagnosed with UTI as well as infective endocarditis. Patient received 2 units of packed red blood cell with improvement in hemoglobin. Hemoccult stool was negative for bleeding. Patient was started on Levaquin and vancomycin. She is currently doing better and feeling better. Review of Systems 2 Review of Systems: Review of system as per HPI otherwise negative. All systems reviewed & are unremarkable except as noted in HPI and below PMFSH Past Medical History Medical History Colon polyps Diarrhea Rectal bleeding History of kidney disease Allergies Screening mammogram, encounter for Dialysis patient renal failure History of endometrial biopsy (~01/23/16) menometrorrhagia Anemia Trichomonas vaginalis (TV) infection (05/04/16) High cholesterol HPV in female Abnormal Pap smear of cervix 07/14/15 lgsil ; 05/08/14 lgsil; 10/16/12 ASCUS / +HPV Hx of blood clots (~12/2012) 3 rt leg, 2 rt arm History of 2019 novel coronavirus disease (COVID-19) Chronic kidney disease, stage 5, kidney failure Chronic lupus nephritis Glomerular disorders in diseases classified elsewhere Hypertensive chronic kidney disease with stage 1 through stage 4 chronic kidney disease, or unspecified chronic kidney disease Intractable migraine without aura and without status migrainosus Surgical History Surgical History History of total hysterectomy February 2017 History of elective x2 History of robot-assisted laparoscopic hysterectomy RA TLH w/RSO--HGSIL, ovarian cyst, leiomyoma H/O LEEP 12/31/15 H[facility] TRAVIS II History of dilation and curettage (08/03/15) hscope d&c/Novasure endometrial ablation History of endometrial ablation (08/03/15) hscope d&c/Novasure endometrial ablation History of left salpingo-oophorectomy (08/31/15) EXP LAP, LSO, ADHESIOLYSIS left dermoid cyst, left & right hydrosalpinx History of colposcopy with cervical biopsy 12/13/12 TRAVIS I 09/02/15 TRAVIS II 12/09/15 HGSIL History of ovarian cystectomy (07/11/07) EXP LAP; RIGHT OVARIAN CYSTECTOMY, R PARTIAL SALPINGECTOMY - R Ovarian Cyst, R hydrosalpinx History of laparoscopy (03/23/05) dx lap, chromopertubation - bilateral salpinx, pelvic adhesions, left ovarian enlargement, bilaterally blocked fallopian tubes Kidney transplant recipient (~08/2019) Family History Family History Mother Hypertension Father Family history of type 2 diabetes mellitus Family history of heart disease in male family member before age 55 Cerebrovascular accident Hypertension Diabetes mellitus Other Cancer Diabetes mellitus Hypertension Family history of heart disease in male family member before age 55 Social History Social History Smoking status: Never smoker Second hand tobacco smoke exposure: Yes Alcohol intake: never Substance use: never Substance use type: does not use Do You Feel Safe in your Home?: Yes Lack of Transportation: No Lack of Food: Never True Current Housing: I Have Housing Concerned About Future Housing: No Difficulty Paying Gas/Electric Bills: No Difficulty Paying for Meds: No Currently Unemployed: No Education: Decline to Answer Difficulty w/ Childcare or Family Care: Decline to Answer Living arrangements: alone Additional living arrangements comments: Occupation/Education: occupation 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 [employer] Gender identity (if verbalized by the patient): Female Sexual Orientation (if Verbalized by the Patient): Straight or Heterosexual Spiritual care concerns: No Meds Home Medications and Allergies Home Medications ?Medication ?Instructions ?Recorded ?Confirmed ?Type cholecalciferol (vitamin D3) 50 2,000 unit PO DAILY 10/02/19 11/09/24 History mcg (2,000 unit) tablet prednisolone 5 mg tablet 5 mg PO DAILY 10/02/19 11/09/24 History tacrolimus 1 mg capsule, 1 mg PO Q12H 10/02/19 11/09/24 History immediate-release furosemide 80 mg tablet 80 mg PO BID 05/24/22 11/09/24 History doxazosin 8 mg tablet 8 mg PO DAILY 06/09/22 11/09/24 History biotin 10,000 mcg capsule 10,000 mcg PO DAILY 08/02/22 11/09/24 History multivitamin and minerals 1 tablet PO DAILY 09/12/22 11/09/24 History no.11-folic acid 5 mg tablet (Dialyvite 5000) atorvastatin 20 mg tablet 20 mg PO DAILY #90 tabs 02/08/24 11/09/24 Rx carvedilol 25 mg tablet 25 mg PO BID #60 tabs 05/09/24 11/09/24 Rx diltiazem HCl 120 mg See Rx Instructions .Route 08/23/24 11/09/24 Rx capsule,extended release 24 hr .COMPLEX #90 caps Allergies Allergy/AdvReac Type Severity Reaction Status Date / Time lisinopril Allergy Severe Swelling Verified 10/10/24 11:04 of Lip/Tongue/Throat Penicillins Allergy Severe Swelling Verified 10/10/24 11:04 of Lip/Tongue/Throat CHRIST Inhibitors Allergy Intermediate SWELLING Verified 10/10/24 11:04 ibuprofen Allergy Intermediate UNABLE TO Verified 10/10/24 11:04 TAKE WITH LUPUS NEPHRITIS Vital Signs Vital Signs - 24 hr 11/11/24 21:25 11/11/24 21:27 11/11/24 22:00 Temperature Pulse Rate 88 88 Respiratory Rate 18 Blood Pressure 142/86 H Pulse Oximetry 100 Oxygen Delivery Room Air 11/12/24 06:20 11/12/24 08:43 11/12/24 09:02 Temperature 36.9 C Pulse Rate 71 69 Respiratory Rate 18 Blood Pressure 154/80 H Pulse Oximetry 100 99 Oxygen Delivery Room Air 11/12/24 14:00 Temperature 36.7 C Pulse Rate 80 Respiratory Rate 20 Blood Pressure 123/62 Pulse Oximetry 100 Oxygen Delivery Exam 2 Narrative: Lungs are clear to auscultation bilaterally Cardiovascular regular rate rhythm no murmur Abdomen soft nontender nondistended bowel sounds are positive Extremities no edema Results Labs 11/12/24 06:26 11/12/24 06:26 Labs: Short CBC 11/12/24 Range/Units 06:26 WBC 7.1 (4.5-10.0) K/mm3 Hgb 9.1 L (12.0-15.0) g/dL Hct 29.0 L (37.0-47.0) % Plt Count 164 (150-375) k/mm3 BMP 11/12/24 06:26 Sodium 132 L Potassium 3.4 Chloride 103 Carbon Dioxide 28 BUN 5 L D Creatinine 3.75 H Glucose 81 Calcium 7.6 L Liver Function 11/12/24 Range/Units 06:26 Albumin 2.3 L (3.5-5.1) g/dL
[2024-11-12 20:30] VITALS: PULSE 79; RESP 16; O2SAT 100
[2024-11-12 20:32] VITALS: PULSE 65
[2024-11-12] MEDS: carvediloL 25 MG TABLET PO (20:32)
[2024-11-12 20:33] VITALS: BP 136/71; PULSE 79; RESP 16; TEMP 36.8; O2SAT 100
[2024-11-13] VITALS (23 sets, daily range): BP systolic 117–168; BP diastolic 64–90; PULSE 70–99; RESP 14–16; TEMP 36.2–37.2; O2SAT 97–100
[2024-11-13 02:34] LABS: Creat 24 Hr 0.34 g/24 h (0.50-2.15); Pro/Creat Ratio 976 mg/g creat (<150); Pro/Creat Ratio mg/mg 0.976 (<0.150); Protein,total, 24 Hr Ur 328 mg/24 h (<150)
[2024-11-13 06:09] LABS: Hematocrit 27.8 % (37.0-47.0); Hemoglobin 8.6 g/dL (12.0-15.0); Mean Corpuscular HGB Conc 30.9 g/dl (32-36); Mean Corpuscular Hemoglobin 28.4 pg (26-34); Mean Corpuscular Volume 91.7 fl (80-100); Mean Platelet Volume 10.1 fl (7.4-10.4); Platelet Count Result 138 k/mm3 (150-375); Red Blood Count 3.03 M/mm3 (4.2-5.4); White Blood Count 7.9 K/mm3 (4.5-10.0)
[2024-11-13 06:19] LABS: Albumin Level 2.3 g/dL (3.5-5.1); Anion Gap 1 mmol/L (4-12); Blood Urea Nitrogen 8 mg/dL (7-17); Calcium 7.8 mg/dL (8.4-10.2); Carbon Dioxide 26 mmol/L (22-30); Chloride 104 mmol/L (98-107); Estimated CRCL calculation 9 ml/min; Estimated Glomerular Filt Rate 10; Glucose 84 mg/dL (65-110); Potassium 3.7 mmol/L (3.4-5.0); Sodium 131 mmol/L (137-145)
[2024-11-13 06:34] LABS: Vancomycin Random 19.1 ug/mL (10-20)
[2024-11-13] MEDS: ATORVASTATIN 20 MG TABLET PO (07:45)
[2024-11-13] MEDS: TACROLIMUS 0.5 MG CAPSULE 1 MG BY MOUTH ×2 (07:45→21:11)
[2024-11-13] MEDS: CHOLECALCIFEROL 1,000 UNITS TABLET 2000 UNITS PO (07:46)
[2024-11-13] MEDS: ACETAMINOPHEN 325 MG TABLET 650 MG PO (07:46)
--- NOTE | 2024-11-13 08:00 | PM.IMPN ---
Progress Note: A&P Assessment and Plan (1) UTI (urinary tract infection): Code(s): N39.0 - Urinary tract infection, site not specified Status: Acute (2) Anemia in chronic kidney disease: Code(s): N18.9 - Chronic kidney disease, unspecified; D63.1 - Anemia in chronic kidney disease Status: Acute (3) Essential (primary) hypertension: Code(s): I10 - Essential (primary) hypertension Status: Acute (4) Dialysis patient: Code(s): Z99.2 - Dependence on renal dialysis Status: Acute (5) Immunosuppression: Code(s): D89.9 - Disorder involving the immune mechanism, unspecified Status: Acute (6) Chronic lupus nephritis: Code(s): M32.14 - Glomerular disease in systemic lupus erythematosus Status: Acute (7) Infective endocarditis: Code(s): 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 Status: Acute Plan This is a 54-year-old female with past medical history significant for lupus nephritis, end-stage renal disease on hemodialysis, failed kidney transplant, anemia of chronic disease. Patient dialyzes 3 times a week comes to the emergency room due to episode of fever, patient denies any cough, nausea, vomiting, has been in her usual state of health up until this point. Preliminary workup in emergency room was significant for hemoglobin of 6.3, a urinalysis was significant for numerous WBCs present. Severe anemia Denies any active bleeding no blood in stool or urine. She is status post complete hysterectomy. Last colonoscopy in July 2024 was unremarkable. She has been feeling generally weak and also short of breath. She has been having intermittent fever for several weeks now. On arrival to the ED see was borderline febrile with a temperature of 37.9?. Otherwise vitals were stable except for elevated blood pressure. Laboratory studies showed CBC with hemoglobin of 6.3. received 2 units of packed red blood cell transfusion overnight. Her post transfusion hemoglobin is 8.9. and remains stable. occult blood stool negative. Possible due to end-stage renal disease consult can top setter for evaluation treatment End-stage renal disease, hypokalemia Chem panel was unremarkable except for underlying CKD and low potassium of 2.7. Management per can top setter Fever, possible due to UTI and bacteremia Patient tested negative for COVID RSV and flu. Chest x-ray with no acute cardiopulmonary disease. UA positive for UTI EKG did not show any acute ST-T changes. Blood culture grow Enterococcus faecalis. Urinalysis does note evidence of UTI. Urine culture grows Enterococcus echo report: 1. Complete two-dimensional, color flow and Doppler transthoracic echocardiogram is performed. 2. Left ventricular chamber dimension is normal. 3. Left ventricular systolic function is normal, estimated at 65-70%. 4. There is moderate concentric increased left ventricular wall thickness. 5. The left ventricular diastolic function is grade I diastolic dysfunction. 6. E/e' 20 is elevated. 7. Global longitudinal strain is normal at -19.2%. 8. There is trace aortic valve regurgitation. 9. There is mild mitral valve regurgitation. 10. Small mobile echogenic mass measuring 0.5 cm attached to anterior mitral valve leaflet suggestive of vegetation. 11. There is mild tricuspid valve regurgitation. 12. No pulmonary hypertension, estimated pulmonary arterial systolic pressure is 32 mmHg. 13. There is trace pulmonic regurgitation. Infective endocarditis and bacteremia Patient on levofloxacin and vancomycin. Discontinue Levaquin, continue vancomycin Dosing per pharmacist Repeat blood culture general 13 pending Small mobile echogenic mass measuring 0.5 cm attached to anterior mitral valve leaflet suggestive of vegetation. UTI see above History of lupus nephritis status post kidney transplant failed and back on dialysis again Colon polyps Diarrhea intermittent reported. Will get stool studies History of DVT in 2013 Migraine Hypertension DVT prophylaxis SCDs Code status full code Called U and discussed with cardiac service surgeon, plans to transfer the patient to U she is no the waiting list to be tranferred to [facility] Subjective Date/time seen: 11/13/24 08:00 Interval history: Patient feels comfortable, denies headache, fever chills chest pain shortness of breath Blood culture and urine culture grows Enterococcus. No nausea, vomiting. no sob, chest pain. Patient is afebrile, blood pressure uncontrolled. repeated bcx grows Enterococcus faecalis, susceptible to vanc, I reached out to [facility] to to transfer patient. patient is on with the waiting list Exam Narrative: GENERAL: Pleasant, in no acute distress. Well-nourished. - EYES: EOMI. Anicteric. - HENT: Moist mucous membranes. - LUNGS: Clear to auscultation bilaterally, no wheezing, rhonchi, or rales. - CARDIOVASCULAR: Regular rate and rhythm. No murmur. No JVD. - ABDOMEN: Soft, non-tender and non-distended. No palpable masses. - EXTREMITIES: No edema. Peripheral pulses 2+. Non-tender. - NEUROLOGIC: No focal neurological deficits. CN II-XII grossly intact. - PSYCHIATRIC: Awake, Alert and oriented x 3. Appropriate mood and affect. General weakness - SKIN: No rashes or lesions. Warm. - LYMPH: No cervical lymphadenopathy. Objective Data Vital Signs Vital Signs: Vital Signs - 24 hr 11/12/24 08:43 11/12/24 09:02 11/12/24 14:00 Temperature 98.0 F Pulse Rate 69 80 Respiratory Rate 20 Blood Pressure 123/62 Pulse Oximetry 99 100 Oxygen Delivery Room Air 11/12/24 20:30 11/12/24 20:32 11/12/24 20:33 Temperature 98.2 F Pulse Rate 79 65 79 Respiratory Rate 16 16 Blood Pressure 136/71 Pulse Oximetry 100 100 Oxygen Delivery Room Air 11/13/24 05:59 11/13/24 07:40 Temperature 98.1 F Pulse Rate 84 78 Respiratory Rate 14 Blood Pressure 140/70 Pulse Oximetry 99 Oxygen Delivery Intake/Output Intake/Output: Intake & Output 11/10/24 11/11/24 11/12/24 11/13/24 23:59 23:59 23:59 23:59 Intake Total 1120 758 100 400 Output Total 100 1210 0 Balance 1020 -452 100 400 Meds/Results Medications: Active Medications Generic Name Dose Route Start Last Admin Trade Name Freq PRN Reason Stop Dose Admin Acetaminophen 650 mg 11/08/24 22:54 11/13/24 07:46 Acetaminophen 325 Mg Tablet PO 650 mg Q4H PRN Administration Mild Pain (1-3) or Fever Atorvastatin Calcium 20 mg 11/09/24 09:00 11/13/24 07:45 Atorvastatin 20 Mg Tablet PO 20 mg DAILY MARIANO Administration Carvedilol 25 mg 11/10/24 21:00 11/13/24 07:40 Carvedilol 25 Mg Tablet PO Not Given Q12HR MARIANO Diltiazem HCl 120 mg 11/09/24 09:30 11/13/24 07:39 Diltiazem Hcl Cd 120 Mg Cap.24hr PO Not Given DAILY [facility] Doxazosin Mesylate 8 mg 11/09/24 09:00 11/13/24 07:47 Doxazosin Mesylate 4 Mg Tablet PO Not Given DAILY MARIANO Epoetin Denzel 20,000 units 11/13/24 20:00 Epoetin Denzel 20,000 Units/Ml Vial IV PUSH 11/13/24 20:01 ONCE ONE Furosemide 80 mg 11/09/24 17:00 11/13/24 07:41 Furosemide 80 Mg Tablet PO Not Given BID MARIANO Albumin Human 50 mls @ 999 mls/hr 11/10/24 10:21 Albutein IVPB 12/10/24 10:20 Q10M PRN HYPOTENSION Vancomycin HCl 500 mg in 100 mls @ 100 mls/hr 11/13/24 18:00 Vancomycin 500 Mg/Ns 100 Ml IVPB 11/13/24 18:59 ONCE ONE Miscellaneous Information 1 each 11/09/24 00:01 11/10/24 05:20 Prednisolone Tablet Nonformulary. Can Patient Bring From Home Or Hold Till Discharge? XX 12/09/24 00:00 Not Given CLARIFY MARIANO Non-Formulary Medication 5 mg 11/10/24 09:00 Prednisolone PO 12/10/24 08:59 DAILY MARIANO Ondansetron HCl 4 mg 11/09/24 08:12 Ondansetron Inj 4 Mg/2 Ml Vial IV PUSH Q6H PRN Nausea And Vomiting Pantoprazole Sodium 40 mg 11/09/24 13:20 11/13/24 07:33 Pantoprazole 40 Mg Tablet PO Not Given Q12HR MARIANO Perflutren Lipid Microsphere 0 ml 11/10/24 12:33 Perflutren Lipid Microspheres 1.5 Ml Vial Diluted To 10 Ml Total Volume IV PUSH 11/13/24 12:33 ONCE PRN adequate visualization Protocol Tacrolimus 1 mg 11/09/24 10:00 11/13/24 07:45 Tacrolimus 0.5 Mg Capsule BY MOUTH 1 mg Q12HR MARIANO Administration Vancomycin HCl 1 each 11/10/24 08:51 Vancomycin For Hemodialysis IVPB PRN PRN Vancomycin Protocol Vitamin D 2,000 units 11/09/24 09:00 11/13/24 07:46 Cholecalciferol 1,000 Units Tablet PO 2,000 units DAILY MARIANO Administration Radiology Results: ITS Impressions Chest X-Ray 11/08/24 15:37 IMPRESSION: No acute cardiopulmonary process. Hip/Pelvis X-Ray 11/08/24 20:28 IMPRESSION: No acute osseous finding in the pelvis or left hip. Abdomen Ultrasound 11/10/24 13:32 IMPRESSION: Prominent atrophy and increased echogenicity of the kidneys, consistent with chronic renal medical disease; no evidence of obstructive uropathy Renal cysts Spleen measures 13 cm length, within upper limits of normal (up to 14 cm) Labs Labs: Laboratory Results - last 24 hr 11/10/24 11/11/24 11/13/24 11:22 21:30 06:01 WBC 7.9 RBC 3.03 L Hgb 8.6 L Hct 27.8 L MCV 91.7 MCH 28.4 MCHC 30.9 L RDW 16.0 H Plt Count 138 L MPV 10.1 Sodium 131 L Potassium 3.7 Chloride 104 Carbon Dioxide 26 Anion Gap 1 L BUN 8 Creatinine 5.38 H Estim Creat Clear Calc 9 Estimated GFR 10 L Glucose 84 Calcium 7.8 L Phosphorus 2.0 L Albumin 2.3 L U Protein 24 Hr Presump 328 H Random Vancomycin 19.1 [place]/Lambda Ratio 16.19 H Free [place] Light Chains 665.6 H Free [place] Light Chain 41.1 H
[2024-11-13] MEDS: POTASSIUM/PHOSPHORUS/SODIUM 1.5 GM PACKET 2 PACKET PO (08:48)
[2024-11-13] MEDS: EPOETIN ALFA 20,000 UNITS/ML VIAL 20000 UNITS IV PUSH (12:11)
--- NOTE | 2024-11-13 12:40 | P.PNNP_ITS ---
Progress Note: A&P Assessment and Plan (1) End stage renal disease: Code(s): N18.6 - End stage renal disease Status: Chronic Assessment and Plan: * HD today * continue outpatient M/W/ dialysis schedule * follow electrolytes, volume status, and clearance (2) Infective endocarditis: Code(s): 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 Status: Acute Assessment and Plan: * as noted by Echo (on 11/11): * left ventricular systolic function is normal, estimated at 65-70% * trace aortic valve regurgitation * mild mitral valve regurgitation * small mobile echogenic mass measuring 0.5 cm attached to anterior mitral valve leaflet suggestive of vegetation * mild tricuspid valve regurgitation * on antibiotics * CTS evaluation pending - awaiting transfer to [facility] (3) Bacteremia: Code(s): R78.81 - Bacteremia Status: Acute Assessment and Plan: * culture results noted: * blood cultures (from 11/09) - Enterococcus faecalis * urine culture (from 11/08) - Enterococcus faecalis * blood culture (from 11/11) - Enterococcus faecalis * now complicated by #2 * this issue may have progressed since on immunosuppression medications (to maintain residual kidney function of transplant kidney) * on antibiotics * follow repeat cultures (4) Anemia: Code(s): D64.9 - Anemia, unspecified Status: Acute Assessment and Plan: * severity/recurrence out of proportion to blame ESRD alaon * H/H doing better currently * s/p PRBC transfusion * suspect possible resistance to PRESTON/Mircera due to #3 (?) * however, her lupus could be contributing as well * low complements noted -- related to #2 (?) * ELLEN pending; dsDNA-Ab negative * serum and urine immunofixation with IgG kappa monoclonal band * Hem/Onc recommendations noted * Epogen with dialysis * follow trend of H/H (5) UTI (urinary tract infection): Code(s): N39.0 - Urinary tract infection, site not specified Status: Acute Assessment and Plan: * urine culture with Enterococcus (see #3) * on antibiotics (6) Essential (primary) hypertension: Code(s): I10 - Essential (primary) hypertension Status: Chronic Assessment and Plan: * reasonable control currently * does fluctuate to extremes... * continue home BP medications * follow trend of hemodynamics (7) Failed kidney transplant: Code(s): T86.12 - Kidney transplant failure Status: Chronic Assessment and Plan: * s/p renal transplantation in 09/14/2019 * transplant failure in March 2021 * restarted on dialysis at that time * remains on tacrolimus and prednisone to maintain residual transplant kidney function (8) Renal osteodystrophy: Code(s): N25.0 - Renal osteodystrophy Status: Acute Assessment and Plan: * low calcium and low phosphorus along with low potassium * liberalized diet * holding phosphate binders Will continue to follow. L Subjective Date/time seen: 11/13/24 12:40 Interval history: Follow-up for end stage renal disease on hemodialysis. Tolerating dialysis treatment at the time of my visit (seen on HD at 12:30PM); noted persistently positive blood cultures at this time complicated by evidence of endocarditis; no acute distress voiced currently; no issues/events overnight or earlier this morning. Exam 2 Narrative: General: WD/WN female in NAD Heart: normal S1 and S2; no rub Lungs: clear to auscultation Abdomen: soft, nontender, nondistended, positive bowel sounds Extremities: no cyanosis or clubbing; no edema Skin: no nodules Objective Data Vital Signs Vital Signs: Vital Signs Temp Pulse Resp BP Pulse Ox O2 Del Method 11/13/24 12:30 77 144/83 H 11/13/24 12:15 80 161/85 H 11/13/24 12:00 78 128/79 11/13/24 11:48 73 144/78 H 11/13/24 11:15 76 151/86 H 11/13/24 11:00 79 151/82 H 11/13/24 10:47 79 138/81 11/13/24 10:30 73 153/83 H 11/13/24 10:15 83 150/85 H 11/13/24 10:00 76 142/88 H 11/13/24 09:45 75 156/90 H 11/13/24 09:30 74 147/88 H 11/13/24 09:20 74 168/90 H 11/13/24 09:05 98.1 F 70 16 144/81 H 98 11/13/24 07:40 78 11/13/24 05:59 98.1 F 84 14 140/70 99 11/12/24 20:33 98.2 F 79 16 136/71 100 11/12/24 20:32 65 11/12/24 20:30 79 16 100 Room Air Intake/Output Intake/Output: Intake & Output 11/10/24 11/11/24 11/12/24 11/13/24 23:59 23:59 23:59 23:59 Intake Total 1120 758 100 640 Output Total 100 1210 0 1000 Balance 1020 -452 100 -360 Meds/Results Medications: Active Medications Generic Name Dose Route Start Last Admin Trade Name Freq PRN Reason Stop Dose Admin Acetaminophen 650 mg 11/08/24 22:54 11/13/24 07:46 Acetaminophen 325 Mg Tablet PO 650 mg Q4H PRN Administration Mild Pain (1-3) or Fever Atorvastatin Calcium 20 mg 11/09/24 09:00 11/13/24 07:45 Atorvastatin 20 Mg Tablet PO 20 mg DAILY MARIANO Administration Carvedilol 25 mg 11/10/24 21:00 11/13/24 13:38 Carvedilol 25 Mg Tablet PO 25 mg Q12HR MARIANO Administration Diltiazem HCl 120 mg 11/09/24 09:30 11/13/24 13:38 Diltiazem Hcl Cd 120 Mg Cap.24hr PO 120 mg DAILY MARIANO Administration Doxazosin Mesylate 8 mg 11/09/24 09:00 11/13/24 13:38 Doxazosin Mesylate 4 Mg Tablet PO 8 mg DAILY MARIANO Administration Epoetin Denzel 20,000 units 11/13/24 20:00 11/13/24 12:11 Epoetin Denzel 20,000 Units/Ml Vial IV PUSH 11/13/24 20:01 20,000 units ONCE ONE Administration Furosemide 80 mg 11/09/24 17:00 11/13/24 17:11 Furosemide 80 Mg Tablet PO Not Given BID MARIANO Albumin Human 50 mls @ 999 mls/hr 11/10/24 10:21 Albutein IVPB 12/10/24 10:20 Q10M PRN HYPOTENSION Vancomycin HCl 500 mg in 100 mls @ 100 mls/hr 11/13/24 18:00 11/13/24 17:12 Vancomycin 500 Mg/Ns 100 Ml IVPB 11/13/24 18:59 100 mls/hr ONCE ONE Administration Ondansetron HCl 4 mg 11/09/24 08:12 Ondansetron Inj 4 Mg/2 Ml Vial IV PUSH Q6H PRN Nausea And Vomiting Pantoprazole Sodium 40 mg 11/09/24 13:20 11/13/24 07:33 Pantoprazole 40 Mg Tablet PO Not Given Q12HR MARIANO Prednisone 5 mg 11/13/24 14:20 11/13/24 15:16 Prednisone 5 Mg Tablet PO Not Given DAILY@0800 MARIANO Tacrolimus 1 mg 11/09/24 10:00 11/13/24 07:45 Tacrolimus 0.5 Mg Capsule BY MOUTH 1 mg Q12HR MARIANO Administration Vancomycin HCl 1 each 11/10/24 08:51 Vancomycin For Hemodialysis IVPB PRN PRN Vancomycin Protocol Vitamin D 2,000 units 11/09/24 09:00 11/13/24 07:46 Cholecalciferol 1,000 Units Tablet PO 2,000 units DAILY MARIANO Administration Radiology Results: ITS Impressions Chest X-Ray 11/08/24 15:37 IMPRESSION: No acute cardiopulmonary process. Hip/Pelvis X-Ray 11/08/24 20:28 IMPRESSION: No acute osseous finding in the pelvis or left hip. Abdomen Ultrasound 11/10/24 13:32 IMPRESSION: Prominent atrophy and increased echogenicity of the kidneys, consistent with chronic renal medical disease; no evidence of obstructive uropathy Renal cysts Spleen measures 13 cm length, within upper limits of normal (up to 14 cm) Labs Labs: Laboratory Tests 11/13/24 06:01 11/13/24 06:01 Calcium 7.8 L Phosphorus 2.0 L Albumin 2.3 L Microbiology 11/10/24 22:00 Stool Stool for WBCs - Final 11/10/24 22:00 Stool Escherichia coli Shiga Toxins - Final 11/10/24 22:00 Stool Salmonella/Shigella Culture - Final 11/10/24 22:00 Stool Campylobacter Antigen Assay - Final 11/10/24 21:59 Stool Ova and Parasite Concentrate Exam - Final 11/11/24 11:30 Blood Blood Culture - Preliminary Enterococcus faecalis 11/11/24 11:34 Blood Blood Culture - Preliminary Enterococcus faecalis
[2024-11-13] MEDS: DOXAZOSIN MESYLATE 4 MG TABLET 8 MG PO (13:38)
[2024-11-13] MEDS: dilTIAZem HCL CD 120 MG CAP.24HR PO (13:38)
[2024-11-13] MEDS: carvediloL 25 MG TABLET PO ×2 (13:38→21:11)
[2024-11-13 14:44] LABS: MRSA (PCR) NOT DETECTED (NOT DETECTE)
[2024-11-13] MEDS: VANCOMYCIN 500 MG/NS 100 ML 500 MG/100 ML BAG 100 MG IVPB (17:12)
--- NOTE | 2024-11-14 02:33 | PC.NURSE ---
Updates given to U transfer center. No bed at this time. Pt to remain on the waiting list at this time. [facility] Logistics center to call again for updates during the day time.
[2024-11-14 05:38] VITALS: BP 158/88; PULSE 74; RESP 16; TEMP 36.2; O2SAT 100
[2024-11-14 07:03] LABS: Hematocrit 29.4 % (37.0-47.0); Mean Corpuscular HGB Conc 30.6 g/dl (32-36); Mean Corpuscular Hemoglobin 28.3 pg (26-34); Mean Corpuscular Volume 92.5 fl (80-100); Mean Platelet Volume 10.3 fl (7.4-10.4); Platelet Count Result 156 k/mm3 (150-375); Red Blood Count 3.18 M/mm3 (4.2-5.4); Red Cell Distribution Width 16.5 % (11.5-14.5); White Blood Count 7.8 K/mm3 (4.5-10.0)
[2024-11-14 07:12] LABS: Albumin Level 2.5 g/dL (3.5-5.1); Anion Gap 2 mmol/L (4-12); Blood Urea Nitrogen 5 mg/dL (7-17); Carbon Dioxide 28 mmol/L (22-30); Chloride 106 mmol/L (98-107); Estimated CRCL calculation 15 ml/min; Estimated Glomerular Filt Rate 18; Glucose 76 mg/dL (65-110); Phosphorus 1.6 mg/dL (2.5-4.5); Sodium 136 mmol/L (137-145)
[2024-11-14 08:51] VITALS: PULSE 68
[2024-11-14] MEDS: CHOLECALCIFEROL 1,000 UNITS TABLET 2000 UNITS PO (08:51)
[2024-11-14] MEDS: dilTIAZem HCL CD 120 MG CAP.24HR PO (08:51)
[2024-11-14] MEDS: DOXAZOSIN MESYLATE 4 MG TABLET 8 MG PO (08:51)
[2024-11-14] MEDS: carvediloL 25 MG TABLET PO ×2 (08:51→21:17)
[2024-11-14] MEDS: ATORVASTATIN 20 MG TABLET PO (08:52)
[2024-11-14] MEDS: predniSONE 5 MG TABLET PO (08:53)
[2024-11-14] MEDS: FUROSEMIDE 80 MG TABLET PO ×2 (08:53→17:31)
[2024-11-14] MEDS: TACROLIMUS 0.5 MG CAPSULE 1 MG BY MOUTH ×2 (08:53→21:17)
--- NOTE | 2024-11-14 09:34 | P.PNIM_ITS ---
Progress Note: A&P Assessment and Plan (1) UTI (urinary tract infection): Code(s): N39.0 - Urinary tract infection, site not specified Status: Acute (2) Anemia in chronic kidney disease: Code(s): N18.9 - Chronic kidney disease, unspecified; D63.1 - Anemia in chronic kidney disease Status: Acute (3) Essential (primary) hypertension: Code(s): I10 - Essential (primary) hypertension Status: Acute (4) Dialysis patient: Code(s): Z99.2 - Dependence on renal dialysis Status: Acute (5) Immunosuppression: Code(s): D89.9 - Disorder involving the immune mechanism, unspecified Status: Acute (6) Chronic lupus nephritis: Code(s): M32.14 - Glomerular disease in systemic lupus erythematosus Status: Acute (7) Infective endocarditis: Code(s): 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 Status: Acute Plan This is a 54-year-old female with past medical history significant for lupus nephritis, end-stage renal disease on hemodialysis, failed kidney transplant, anemia of chronic disease. Patient dialyzes 3 times a week comes to the emergency room due to episode of fever, patient denies any cough, nausea, vomiting, has been in her usual state of health up until this point. Preliminary workup in emergency room was significant for hemoglobin of 6.3, a urinalysis was significant for numerous WBCs present. Severe anemia Denies any active bleeding no blood in stool or urine. She is status post complete hysterectomy. Last colonoscopy in July 2024 was unremarkable. She has been feeling generally weak and also short of breath. She has been having intermittent fever for several weeks now. On arrival to the ED see was borderline febrile with a temperature of 37.9?. Otherwise vitals were stable except for elevated blood pressure. Laboratory studies showed CBC with hemoglobin of 6.3. received 2 units of packed red blood cell transfusion overnight. Her post transfusion hemoglobin is 8.9. and remains stable. occult blood stool negative. Possible due to end-stage renal disease consult advanced research programs director for evaluation treatment End-stage renal disease, hypokalemia Chem panel was unremarkable except for underlying CKD and low potassium of 2.7. Management per advanced research programs director Fever, possible resulting from UTI, infective endocarditis and bacteremia Patient tested negative for COVID RSV and flu. Chest x-ray with no acute cardiopulmonary disease. UA positive for UTI EKG did not show any acute ST-T changes. 2x Blood culture grow Enterococcus faecalis. Urinalysis does note evidence of UTI. Urine culture grows Enterococcus echo report: 1. Complete two-dimensional, color flow and Doppler transthoracic echocardiogram is performed. 2. Left ventricular chamber dimension is normal. 3. Left ventricular systolic function is normal, estimated at 65-70%. 4. There is moderate concentric increased left ventricular wall thickness. 5. The left ventricular diastolic function is grade I diastolic dysfunction. 6. E/e' 20 is elevated. 7. Global longitudinal strain is normal at -19.2%. 8. There is trace aortic valve regurgitation. 9. There is mild mitral valve regurgitation. 10. Small mobile echogenic mass measuring 0.5 cm attached to anterior mitral valve leaflet suggestive of vegetation. 11. There is mild tricuspid valve regurgitation. 12. No pulmonary hypertension, estimated pulmonary arterial systolic pressure is 32 mmHg. 13. There is trace pulmonic regurgitation. repeat BCX on 11/14 Infective endocarditis and bacteremia Patient on levofloxacin and vancomycin. Discontinue Levaquin, continue vancomycin Dosing per pharmacist Repeat blood culture 11/09 and are positive of enterococcus TTE: Small mobile echogenic mass measuring 0.5 cm attached to anterior mitral valve leaflet suggestive of vegetation. UTI see above History of lupus nephritis status post kidney transplant failed and back on dialysis again Colon polyps Diarrhea intermittent reported. Will get stool studies History of DVT in 2012 Migraine Hypertension DVT prophylaxis SCDs Code status full code Called [facility] and discussed with cardiac service surgeon, plans to transfer the patient to [facility] she is now on the waiting list to be transferred to [facility] Subjective Date/time seen: 11/14/24 09:34 Interval history: Patient feels comfortable, denies headache, fever chills chest pain shortness of breath Blood culture and urine culture grows Enterococcus. No nausea, vomiting. no sob, chest pain. Patient is afebrile, blood pressure uncontrolled. Will repeat blood culture today. Exam Narrative: GENERAL: Pleasant, in no acute distress. Well-nourished. - EYES: EOMI. Anicteric. - HENT: Moist mucous membranes. - LUNGS: Clear to auscultation bilateral ly, no wheezing, rhonchi, or rales. - CARDIOVASCULAR: Regular rate and rhyth m. No murmur. No JVD. - ABDOMEN: Soft, non-tender and non-dist ended. No palpable masses. - EXTREMITIES: No edema. Peripheral puls es 2+. Non-tender. - NEUROLOGIC: No focal neurological defi cits. CN II-XII grossly intact. - PSYCHIATRIC: Awake, Alert and oriented x 3. Appropriate mood and affect. General weakness - SKIN: No rashes or lesions. Warm. - LYMPH: No cervical lymphadenopathy. Objective Data Vital Signs Vital Signs: Vital Signs - 24 hr 11/13/24 09:45 11/13/24 10:00 11/13/24 10:15 Temperature Pulse Rate 75 76 83 Respiratory Rate Blood Pressure 156/90 H 142/88 H 150/85 H Pulse Oximetry Oxygen Delivery 11/13/24 10:30 11/13/24 10:47 11/13/24 11:00 Temperature Pulse Rate 73 79 79 Respiratory Rate Blood Pressure 153/83 H 138/81 151/82 H Pulse Oximetry Oxygen Delivery 11/13/24 11:15 11/13/24 11:48 11/13/24 12:00 Temperature Pulse Rate 76 73 78 Respiratory Rate Blood Pressure 151/86 H 144/78 H 128/79 Pulse Oximetry Oxygen Delivery 11/13/24 12:15 11/13/24 12:30 11/13/24 12:45 Temperature Pulse Rate 80 77 84 Respiratory Rate Blood Pressure 161/85 H 144/83 H 147/89 H Pulse Oximetry Oxygen Delivery 11/13/24 12:52 11/13/24 13:12 11/13/24 13:38 Temperature 98.1 F Pulse Rate 80 90 91 Respiratory Rate 16 Blood Pressure 144/87 H 157/90 H Pulse Oximetry 98 Oxygen Delivery 11/13/24 13:55 11/13/24 21:06 11/13/24 21:11 Temperature 97.8 F Pulse Rate 94 70 Respiratory Rate 16 Blood Pressure 138/64 Pulse Oximetry 100 Oxygen Delivery Room Air 11/13/24 21:22 11/14/24 05:38 11/14/24 08:51 Temperature 97.1 F L 97.1 F L Pulse Rate 99 74 68 Respiratory Rate 16 16 Blood Pressure 117/71 158/88 H Pulse Oximetry 97 100 Oxygen Delivery Intake/Output Intake/Output: Intake & Output 11/11/24 11/12/24 11/13/24 11/14/24 23:59 23:59 23:59 23:59 Intake Total 758 100 990 300 Output Total 1210 0 1100 Balance -452 100 -110 300 Meds/Results Medications: Active Medications Generic Name Dose Route Start Last Admin Trade Name Rey PRN Reason Stop Dose Admin Acetaminophen 650 mg 11/08/24 22:54 11/13/24 07:46 Acetaminophen 325 Mg Tablet PO 650 mg Q4H PRN Administration Mild Pain (1-3) or Fever Atorvastatin Calcium 20 mg 11/09/24 09:00 11/14/24 08:52 Atorvastatin 20 Mg Tablet PO 20 mg DAILY MARIANO Administration Carvedilol 25 mg 11/10/24 21:00 11/14/24 08:51 Carvedilol 25 Mg Tablet PO 25 mg Q12HR MARIANO Administration Diltiazem HCl 120 mg 11/09/24 09:30 11/14/24 08:51 Diltiazem Hcl Cd 120 Mg Cap.24hr PO 120 mg DAILY MARIANO Administration Doxazosin Mesylate 8 mg 11/09/24 09:00 11/14/24 08:51 Doxazosin Mesylate 4 Mg Tablet PO 8 mg DAILY MARIANO Administration Furosemide 80 mg 11/09/24 17:00 11/14/24 08:53 Furosemide 80 Mg Tablet PO 80 mg BID MARIANO Administration Albumin Human 50 mls @ 999 mls/hr 11/10/24 10:21 Albutein IVPB 12/10/24 10:20 Q10M PRN HYPOTENSION Ondansetron HCl 4 mg 11/09/24 08:12 Ondansetron Inj 4 Mg/2 Ml Vial IV PUSH Q6H PRN Nausea And Vomiting Pantoprazole Sodium 40 mg 11/09/24 13:20 11/14/24 08:56 Pantoprazole 40 Mg Tablet PO Not Given Q12HR MARIANO Prednisone 5 mg 11/13/24 14:20 11/14/24 08:53 Prednisone 5 Mg Tablet PO 5 mg DAILY@0800 MARIANO Administration Tacrolimus 1 mg 11/09/24 10:00 11/14/24 08:53 Tacrolimus 0.5 Mg Capsule BY MOUTH 1 mg Q12HR MARIANO Administration Vancomycin HCl 1 each 11/10/24 08:51 Vancomycin For Hemodialysis IVPB PRN PRN Vancomycin Protocol Vitamin D 2,000 units 11/09/24 09:00 11/14/24 08:51 Cholecalciferol 1,000 Units Tablet PO 2,000 units DAILY MARIANO Administration Radiology Results: ITS Impressions Chest X-Ray 11/08/24 15:37 IMPRESSION: No acute cardiopulmonary process. Hip/Pelvis X-Ray 11/08/24 20:28 IMPRESSION: No acute osseous finding in the pelvis or left hip. Abdomen Ultrasound 11/10/24 13:32 IMPRESSION: Prominent atrophy and increased echogenicity of the kidneys, consistent with chronic renal medical disease; no evidence of obstructive uropathy Renal cysts Spleen measures 13 cm length, within upper limits of normal (up to 14 cm) Labs Labs: Laboratory Results - last 24 hr 11/10/24 11/10/24 11/11/24 11:22 22:03 21:30 WBC RBC Hgb Hct MCV MCH MCHC RDW Plt Count MPV Sodium Potassium Chloride Carbon Dioxide Anion Gap BUN Creatinine Estim Creat Clear Calc Estimated GFR Glucose Calcium Phosphorus Albumin Nasal MRSA (PCR) Stool Rotavirus Antigen Serum Immunofixation see note A Ur [facility] Interpret 24 hr 11/13/24 11/14/24 13:21 05:54 WBC 7.8 RBC 3.18 L Hgb 9.0 L Hct 29.4 L MCV 92.5 MCH 28.3 MCHC 30.6 L RDW 16.5 H Plt Count 156 MPV 10.3 Sodium 136 L Potassium 4.0 Chloride 106 Carbon Dioxide 28 Anion Gap 2 L BUN 5 L Creatinine 3.28 H Estim Creat Clear Calc 15 Estimated GFR 18 L Glucose 76 Calcium 8.0 L Phosphorus 1.6 L Albumin 2.5 L Nasal MRSA (PCR) Not detected Stool Rotavirus Antigen Serum Immunofixation Ur [facility] Interpret 24 hr
--- NOTE | 2024-11-14 12:36 | P.PNNP_ITS ---
Progress Note: A&P Assessment and Plan (1) End stage renal disease: Code(s): N18.6 - End stage renal disease Status: Chronic Assessment and Plan: * HD tomorrow * continue outpatient M/W/F dialysis schedule * follow electrolytes, volume status, and clearance (2) Infective endocarditis: Code(s): 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 Status: Acute Assessment and Plan: * as noted by Echo (on 11/11): * left ventricular systolic function is normal, estimated at 65-70% * trace aortic valve regurgitation * mild mitral valve regurgitation * small mobile echogenic mass measuring 0.5 cm attached to anterior mitral valve leaflet suggestive of vegetation * mild tricuspid valve regurgitation * on antibiotics * CTS evaluation pending - awaiting transfer to [facility] (3) Bacteremia: Code(s): R78.81 - Bacteremia Status: Acute Assessment and Plan: * Enterococcus faecalis in blood and urine cultures * complicated by #2 * on antibiotics * follow repeat cultures (4) Anemia in chronic kidney disease: Code(s): N18.9 - Chronic kidney disease, unspecified; D63.1 - Anemia in chronic kidney disease Status: Acute Assessment and Plan: * H/H doing better * s/p PRBC transfusion * suspect resistance to PRESTON/Mircera due to #3 (?) * however, he lupus could be contributing as well * Hem/Onc recommendations noted * follow trend of H/H (5) UTI (urinary tract infection): Code(s): N39.0 - Urinary tract infection, site not specified Status: Acute Assessment and Plan: * urine culture with Enterococcus as well * on antibiotics (6) Essential (primary) hypertension: Code(s): I10 - Essential (primary) hypertension Status: Acute Assessment and Plan: * seems to be somewhat erratic * continue home BP medications * follow trend of hemodynamics Will continue to follow. L Subjective Date/time seen: 11/14/24 12:36 Interval history: Follow-up for end stage renal disease on hemodialysis. Tolerated dialysis treatment yesterday without any issues or problems; remains in good spirits in general; still awaiting a bed at [facility]; no apparent distress noted; states, overall, since admission, she does feel significantly better. Exam 2 Narrative: General: WD/WN female in NAD Heart: normal S1 and S2; no rub Lungs: clear to auscultation Abdomen: soft, nontender, nondistended, positive bowel sounds Extremities: no cyanosis or clubbing; no edema Skin: warm and dry Objective Data Vital Signs Vital Signs: Vital Signs Temp Pulse Resp BP Pulse Ox O2 Del Method 11/14/24 08:51 68 11/14/24 05:38 97.1 F L 74 16 158/88 H 100 11/13/24 21:22 97.1 F L 99 16 117/71 97 11/13/24 21:11 70 11/13/24 21:06 Room Air Intake/Output Intake/Output: Intake & Output 11/11/24 11/12/24 11/13/24 11/14/24 23:59 23:59 23:59 23:59 Intake Total 758 100 990 400 Output Total 1210 0 1100 Balance -452 100 -110 400 Meds/Results Medications: Active Medications Generic Name Dose Route Start Last Admin Trade Name Freq PRN Reason Stop Dose Admin Acetaminophen 650 mg 11/08/24 22:54 11/13/24 07:46 Acetaminophen 325 Mg Tablet PO 650 mg Q4H PRN Administration Mild Pain (1-3) or Fever Atorvastatin Calcium 20 mg 11/09/24 09:00 11/14/24 08:52 Atorvastatin 20 Mg Tablet PO 20 mg DAILY MARIANO Administration Carvedilol 25 mg 11/10/24 21:00 11/14/24 08:51 Carvedilol 25 Mg Tablet PO 25 mg Q12HR MARIANO Administration Diltiazem HCl 120 mg 11/09/24 09:30 11/14/24 08:51 Diltiazem Hcl Cd 120 Mg Cap.24hr PO 120 mg DAILY MARIANO Administration Doxazosin Mesylate 8 mg 11/09/24 09:00 11/14/24 08:51 Doxazosin Mesylate 4 Mg Tablet PO 8 mg DAILY MARIANO Administration Furosemide 80 mg 11/09/24 17:00 11/14/24 08:53 Furosemide 80 Mg Tablet PO 80 mg BID MARIANO Administration Albumin Human 50 mls @ 999 mls/hr 11/10/24 10:21 Albutein IVPB 12/10/24 10:20 Q10M PRN HYPOTENSION Ondansetron HCl 4 mg 11/09/24 08:12 Ondansetron Inj 4 Mg/2 Ml Vial IV PUSH Q6H PRN Nausea And Vomiting Pantoprazole Sodium 40 mg 11/09/24 13:20 11/14/24 08:56 Pantoprazole 40 Mg Tablet PO Not Given Q12HR MARIANO Prednisone 5 mg 11/13/24 14:20 11/14/24 08:53 Prednisone 5 Mg Tablet PO 5 mg DAILY@0800 MARIANO Administration Tacrolimus 1 mg 11/09/24 10:00 11/14/24 08:53 Tacrolimus 0.5 Mg Capsule BY MOUTH 1 mg Q12HR MARIANO Administration Vancomycin HCl 1 each 11/10/24 08:51 Vancomycin For Hemodialysis IVPB PRN PRN Vancomycin Protocol Vitamin D 2,000 units 11/09/24 09:00 11/14/24 08:51 Cholecalciferol 1,000 Units Tablet PO 2,000 units DAILY MARIANO Administration Radiology Results: ITS Impressions Chest X-Ray 11/08/24 15:37 IMPRESSION: No acute cardiopulmonary process. Hip/Pelvis X-Ray 11/08/24 20:28 IMPRESSION: No acute osseous finding in the pelvis or left hip. Abdomen Ultrasound 11/10/24 13:32 IMPRESSION: Prominent atrophy and increased echogenicity of the kidneys, consistent with chronic renal medical disease; no evidence of obstructive uropathy Renal cysts Spleen measures 13 cm length, within upper limits of normal (up to 14 cm) Labs Labs: Laboratory Tests 11/14/24 05:54 11/14/24 05:54 Calcium 8.0 L Phosphorus 1.6 L Albumin 2.5 L Microbiology 11/11/24 11:34 Blood Blood Culture - Final Enterococcus faecalis 11/11/24 11:30 Blood Blood Culture - Final Enterococcus faecalis 11/10/24 22:00 Stool Stool for WBCs - Final 11/10/24 22:00 Stool Escherichia coli Shiga Toxins - Final 11/10/24 22:00 Stool Salmonella/Shigella Culture - Final 11/10/24 22:00 Stool Campylobacter Antigen Assay - Final 11/10/24 21:59 Stool Ova and Parasite Concentrate Exam - Final
[2024-11-14 12:37] LABS: Norovirus RNA PCR, Stool NOT DETECTED
[2024-11-14 14:00] VITALS: BP 129/66; PULSE 72; RESP 18; TEMP 36.8; O2SAT 93
[2024-11-14 21:16] VITALS: BP 154/78; PULSE 72; RESP 16; TEMP 36.9; O2SAT 100
[2024-11-14 21:17] VITALS: PULSE 77
[2024-11-14] MEDS: PANTOPRAZOLE 40 MG TABLET PO (21:17)
[2024-11-15] VITALS (22 sets, daily range): BP systolic 103–197; BP diastolic 57–92; PULSE 66–91; RESP 16–20; TEMP 36.2–37.2; O2SAT 97–100
[2024-11-15 05:39] LABS: Metanephrine, Free 28 pg/mL (<=57); Normetanephrine, Free 60 pg/mL (<=148); Total, Free (MN + NMN) 88 pg/mL (<=205)
[2024-11-15 06:12] LABS: Hematocrit 30.4 % (37.0-47.0); Hemoglobin 9.4 g/dL (12.0-15.0); Mean Corpuscular HGB Conc 30.9 g/dl (32-36); Mean Corpuscular Hemoglobin 28.8 pg (26-34); Mean Corpuscular Volume 93.3 fl (80-100); Mean Platelet Volume 9.9 fl (7.4-10.4); Platelet Count Result 146 k/mm3 (150-375); Red Blood Count 3.26 M/mm3 (4.2-5.4); Red Cell Distribution Width 16.8 % (11.5-14.5)
[2024-11-15 06:26] LABS: Albumin Level 2.5 g/dL (3.5-5.1); Anion Gap 4 mmol/L (4-12); Blood Urea Nitrogen 9 mg/dL (7-17); Calcium 7.8 mg/dL (8.4-10.2); Carbon Dioxide 24 mmol/L (22-30); Chloride 105 mmol/L (98-107); Estimated CRCL calculation 11 ml/min; Estimated Glomerular Filt Rate 12; Glucose 87 mg/dL (65-110); Phosphorus 1.9 mg/dL (2.5-4.5); Sodium 133 mmol/L (137-145)
[2024-11-15 06:28] LABS: Vancomycin Random 14.1 ug/mL (10-20)
[2024-11-15] MEDS: TACROLIMUS 0.5 MG CAPSULE 1 MG BY MOUTH ×2 (09:25→20:26)
--- NOTE | 2024-11-15 09:39 | PC.NURSE ---
to dialysis via bed
--- NOTE | 2024-11-15 10:34 | P.PNNP_ITS ---
Progress Note: A&P Assessment and Plan (1) End stage renal disease: Code(s): N18.6 - End stage renal disease Status: Chronic Assessment and Plan: * HD under way * continue outpatient M// dialysis schedule * Volume status looks pretty good. Were taking 1L of * Potassium was okay (2) Infective endocarditis: Code(s): 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 Status: Acute Assessment and Plan: * as noted by Echo (on 11/11): * left ventricular systolic function is normal, estimated at 65-70% * trace aortic valve regurgitation * mild mitral valve regurgitation * small mobile echogenic mass measuring 0.5 cm attached to anterior mitral valve leaflet suggestive of vegetation * mild tricuspid valve regurgitation * on antibiotics * CTS evaluation pending - * awaiting transfer to [facility] (3) Bacteremia: Code(s): R78.81 - Bacteremia Status: Acute Assessment and Plan: * Enterococcus faecalis in blood and urine cultures * complicated by #2 * on vancomycin * follow repeat cultures (4) Anemia in chronic kidney disease: Code(s): N18.9 - Chronic kidney disease, unspecified; D63.1 - Anemia in chronic kidney disease Status: Acute Assessment and Plan: * H/H doing better * s/p PRBC transfusion * suspect resistance to PRESTON/Mircera due to #3 (?) * however, he lupus could be contributing as well, however serology is negative so far * She has a paraprotein in her blood and urine which could be contributing as well. * Hem/Onc recommendations noted * follow trend of H/H (5) UTI (urinary tract infection): Code(s): N39.0 - Urinary tract infection, site not specified Status: Acute Assessment and Plan: * urine culture with Enterococcus as well * on antibiotics (6) Essential (primary) hypertension: Code(s): I10 - Essential (primary) hypertension Status: Acute Assessment and Plan: * Systolic ranging wildly between 117 and 197. * We are removing fluid today. * Check renin plus aldosterone * Will change diltiazem to nifedipine * follow trend of hemodynamics Subjective Date/time seen: 11/15/24 10:34 Interval history: Patient is feeling okay. No lupus symptoms No shortness of breath or chest pain Awaiting transfer to [facility] because of the endocarditis On dialysis and tolerating it well. She was seen at 10:10 a.m. Exam Narrative: General: WD/WN female in NAD Heart: normal S1 and S2; no rub or gallop Lungs: clear to auscultation Abdomen: soft, nontender, nondistended, positive bowel sounds Extremities: no cyanosis or clubbing; no edema Skin: warm and dry without rash Objective Data Vital Signs Vital Signs: Vital Signs - 24 hr 11/14/24 14:00 11/14/24 20:00 11/14/24 21:16 Temperature 98.3 F 98.5 F Pulse Rate 72 72 Respiratory Rate 18 16 Blood Pressure 129/66 154/78 H Pulse Oximetry 93 100 Oxygen Delivery Room Air 11/14/24 21:17 11/15/24 05:30 Temperature 97.1 F L Pulse Rate 77 70 Respiratory Rate 20 Blood Pressure 197/85 H Pulse Oximetry 100 Oxygen Delivery Intake/Output Intake/Output: Intake & Output 11/12/24 11/13/24 11/14/24 11/15/24 23:59 23:59 23:59 23:59 Intake Total 100 990 600 550 Output Total 0 1100 Balance 100 -110 600 550 Meds/Results Medications: Active Medications Generic Name Dose Route Start Last Admin Trade Name Freq PRN Reason Stop Dose Admin Acetaminophen 650 mg 11/08/24 22:54 11/13/24 07:46 Acetaminophen 325 Mg Tablet PO 650 mg Q4H PRN Administration Mild Pain (1-3) or Fever Atorvastatin Calcium 20 mg 11/09/24 09:00 11/14/24 08:52 Atorvastatin 20 Mg Tablet PO 20 mg DAILY MARIANO Administration Carvedilol 25 mg 11/10/24 21:00 11/14/24 21:17 Carvedilol 25 Mg Tablet PO 25 mg Q12HR MARIANO Administration Diltiazem HCl 120 mg 11/09/24 09:30 11/14/24 08:51 Diltiazem Hcl Cd 120 Mg Cap.24hr PO 120 mg DAILY MARIANO Administration Doxazosin Mesylate 8 mg 11/09/24 09:00 11/14/24 08:51 Doxazosin Mesylate 4 Mg Tablet PO 8 mg DAILY MARIANO Administration Epoetin Denzel-epbx 10,000 units 11/15/24 18:27 Epoetin Denzel-Epbx 10,000 Units/Ml Vial IV PUSH 11/15/24 18:28 ONCE ONE Furosemide 80 mg 11/09/24 17:00 11/14/24 17:31 Furosemide 80 Mg Tablet PO 80 mg BID MARIANO Administration Albumin Human 50 mls @ 999 mls/hr 11/10/24 10:21 Albutein IVPB 12/10/24 10:20 Q10M PRN HYPOTENSION Vancomycin HCl 750 mg in 250 mls @ 250 mls/hr 11/15/24 18:00 Vancomycin 750 Mg/Ns 250 Ml IVPB 11/15/24 18:59 ONCE ONE Ondansetron HCl 4 mg 11/09/24 08:12 Ondansetron Inj 4 Mg/2 Ml Vial IV PUSH Q6H PRN Nausea And Vomiting Pantoprazole Sodium 40 mg 11/09/24 13:20 11/14/24 21:17 Pantoprazole 40 Mg Tablet PO 40 mg Q12HR MARIANO Administration Prednisone 5 mg 11/13/24 14:20 11/14/24 08:53 Prednisone 5 Mg Tablet PO 5 mg DAILY@0800 MARIANO Administration Tacrolimus 1 mg 11/09/24 10:00 11/14/24 21:17 Tacrolimus 0.5 Mg Capsule BY MOUTH 1 mg Q12HR MARIANO Administration Vancomycin HCl 1 each 11/10/24 08:51 Vancomycin For Hemodialysis IVPB PRN PRN Vancomycin Protocol Vitamin D 2,000 units 11/09/24 09:00 11/14/24 08:51 Cholecalciferol 1,000 Units Tablet PO 2,000 units DAILY MARIANO Administration Radiology Results: ITS Impressions Chest X-Ray 11/08/24 15:37 IMPRESSION: No acute cardiopulmonary process. Hip/Pelvis X-Ray 11/08/24 20:28 IMPRESSION: No acute osseous finding in the pelvis or left hip. Abdomen Ultrasound 11/10/24 13:32 IMPRESSION: Prominent atrophy and increased echogenicity of the kidneys, consistent with chronic renal medical disease; no evidence of obstructive uropathy Renal cysts Spleen measures 13 cm length, within upper limits of normal (up to 14 cm) Labs Labs: Laboratory Results - last 24 hr 11/10/24 11/10/24 11/15/24 11:22 22:03 05:56 WBC 6.0 RBC 3.26 L Hgb 9.4 L Hct 30.4 L MCV 93.3 MCH 28.8 MCHC 30.9 L RDW 16.8 H Plt Count 146 L MPV 9.9 Sodium 133 L Potassium 4.0 Chloride 105 Carbon Dioxide 24 Anion Gap 4 BUN 9 Creatinine 4.60 H Estim Creat Clear Calc 11 Estimated GFR 12 L Glucose 87 Calcium 7.8 L Phosphorus 1.9 L Albumin 2.5 L Aldosterone <1 Plasma Free Metaneph 28 Plasma Free Normeta 60 Pls Totl Free Metaneph 88 Stool Norovirus (PCR) Not detected Random Vancomycin 14.1
--- NOTE | 2024-11-15 10:38 | P.PNIM_ITS ---
Progress Note: A&P Assessment and Plan (1) UTI (urinary tract infection): Code(s): N39.0 - Urinary tract infection, site not specified Status: Acute (2) Anemia in chronic kidney disease: Code(s): N18.9 - Chronic kidney disease, unspecified; D63.1 - Anemia in chronic kidney disease Status: Acute (3) Essential (primary) hypertension: Code(s): I10 - Essential (primary) hypertension Status: Acute (4) Dialysis patient: Code(s): Z99.2 - Dependence on renal dialysis Status: Acute (5) Immunosuppression: Code(s): D89.9 - Disorder involving the immune mechanism, unspecified Status: Acute (6) Chronic lupus nephritis: Code(s): M32.14 - Glomerular disease in systemic lupus erythematosus Status: Acute (7) Infective endocarditis: Code(s): 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 Status: Acute Plan This is a 54-year-old female with past medical history significant for lupus nephritis, end-stage renal disease on hemodialysis, failed kidney transplant, anemia of chronic disease. Patient dialyzes 3 times a week comes to the emergency room due to episode of fever, patient denies any cough, nausea, vomiting, has been in her usual state of health up until this point. Preliminary workup in emergency room was significant for hemoglobin of 6.3, a urinalysis was significant for numerous WBCs present. Severe anemia Denies any active bleeding no blood in stool or urine. She is status post complete hysterectomy. Last colonoscopy in July 2024 was unremarkable. She has been feeling generally weak and also short of breath. She has been having intermittent fever for several weeks now. On arrival to the ED see was borderline febrile with a temperature of 37.9?. Otherwise vitals were stable except for elevated blood pressure. Laboratory studies showed CBC with hemoglobin of 6.3. received 2 units of packed red blood cell transfusion overnight. Her post transfusion hemoglobin is 8.9. and remains stable. occult blood stool negative. Possible due to end-stage renal disease consult wildlife science professor for evaluation treatment End-stage renal disease, hypokalemia Chem panel was unremarkable except for underlying CKD and low potassium of 2.7. Management per wildlife science professor Fever, possible resulting from UTI, infective endocarditis and bacteremia Patient tested negative for COVID RSV and flu. Chest x-ray with no acute cardiopulmonary disease. UA positive for UTI EKG did not show any acute ST-T changes. 2x Blood culture grow Enterococcus faecalis. Urinalysis does note evidence of UTI. Urine culture grows Enterococcus echo report: 1. Complete two-dimensional, color flow and Doppler transthoracic echocardiogram is performed. 2. Left ventricular chamber dimension is normal. 3. Left ventricular systolic function is normal, estimated at 65-70%. 4. There is moderate concentric increased left ventricular wall thickness. 5. The left ventricular diastolic function is grade I diastolic dysfunction. 6. E/e' 20 is elevated. 7. Global longitudinal strain is normal at -19.2%. 8. There is trace aortic valve regurgitation. 9. There is mild mitral valve regurgitation. 10. Small mobile echogenic mass measuring 0.5 cm attached to anterior mitral valve leaflet suggestive of vegetation. 11. There is mild tricuspid valve regurgitation. 12. No pulmonary hypertension, estimated pulmonary arterial systolic pressure is 32 mmHg. 13. There is trace pulmonic regurgitation. repeat BCX on 11/14 Infective endocarditis and bacteremia Patient on levofloxacin and vancomycin. Discontinue Levaquin, continue vancomycin Dosing per pharmacist Repeat blood culture 11/09 and are positive of enterococcus TTE: Small mobile echogenic mass measuring 0.5 cm attached to anterior mitral valve leaflet suggestive of vegetation. The 3rd set for blood culture has no growth so far Changed to daptomycin IV after discussed with ID pharmacist 11/15 UTI see above History of lupus nephritis status post kidney transplant failed and back on dialysis again Colon polyps Diarrhea intermittent reported. Will get stool studies History of DVT in 2012 Migraine Hypertension DVT prophylaxis SCDs Code status full code Called [facility] and discussed with cardiac service surgeon, plans to transfer the patient to [facility] she is now on the waiting list to be transferred to [facility] Subjective Date/time seen: 11/15/24 10:38 Interval history: Patient is afebrile, blood pressure is not controlled, pulse ox 100% room air, labs reviewed, repeat blood culture has no growth so far, previous 2 sets of blood culture grows Enterococcus. Patient is on hemodialysis now, patient has no complication, denies headache, chest pain, shortness breast. Pending transfer Exam Narrative: GENERAL: Pleasant, in no acute distress. Well-nourished. - EYES: EOMI. Anicteric. - HENT: Moist mucous membranes. - LUNGS: Clear to auscultation bilateral ly, no wheezing, rhonchi, or rales. - CARDIOVASCULAR: Regular rate and rhyth m. No murmur. No JVD. - ABDOMEN: Soft, non-tender and non-dist ended. No palpable masses. - EXTREMITIES: No edema. Peripheral puls es 2+. Non-tender. - NEUROLOGIC: No focal neurological defi cits. CN II-XII grossly intact. - PSYCHIATRIC: Awake, Alert and oriented x 3. Appropriate mood and affect. General weakness - SKIN: No rashes or lesions. Warm. - LYMPH: No cervical lymphadenopathy. Objective Data Vital Signs Vital Signs: Vital Signs - 24 hr 11/14/24 14:00 11/14/24 20:00 11/14/24 21:16 Temperature 98.3 F 98.5 F Pulse Rate 72 72 Respiratory Rate 18 16 Blood Pressure 129/66 154/78 H Pulse Oximetry 93 100 Oxygen Delivery Room Air 11/14/24 21:17 11/15/24 05:30 Temperature 97.1 F L Pulse Rate 77 70 Respiratory Rate 20 Blood Pressure 197/85 H Pulse Oximetry 100 Oxygen Delivery Intake/Output Intake/Output: Intake & Output 11/12/24 11/13/24 11/14/24 11/15/24 23:59 23:59 23:59 23:59 Intake Total 100 990 600 550 Output Total 0 1100 Balance 100 -110 600 550 Meds/Results Medications: Active Medications Generic Name Dose Route Start Last Admin Trade Name Freq PRN Reason Stop Dose Admin Acetaminophen 650 mg 11/08/24 22:54 11/13/24 07:46 Acetaminophen 325 Mg Tablet PO 650 mg Q4H PRN Administration Mild Pain (1-3) or Fever Atorvastatin Calcium 20 mg 11/09/24 09:00 11/14/24 08:52 Atorvastatin 20 Mg Tablet PO 20 mg DAILY MARIANO Administration Carvedilol 25 mg 11/10/24 21:00 11/14/24 21:17 Carvedilol 25 Mg Tablet PO 25 mg Q12HR MARIANO Administration Diltiazem HCl 120 mg 11/09/24 09:30 11/14/24 08:51 Diltiazem Hcl Cd 120 Mg Cap.24hr PO 120 mg DAILY MAIRANO Administration Doxazosin Mesylate 8 mg 11/09/24 09:00 11/14/24 08:51 Doxazosin Mesylate 4 Mg Tablet PO 8 mg DAILY MARIANO Administration Epoetin Denzel-epbx 10,000 units 11/15/24 18:27 Epoetin Denzel-Epbx 10,000 Units/Ml Vial IV PUSH 11/15/24 18:28 ONCE ONE Furosemide 80 mg 11/09/24 17:00 11/14/24 17:31 Furosemide 80 Mg Tablet PO 80 mg BID MARIANO Administration Albumin Human 50 mls @ 999 mls/hr 11/10/24 10:21 Albutein IVPB 12/10/24 10:20 Q10M PRN HYPOTENSION Vancomycin HCl 750 mg in 250 mls @ 250 mls/hr 11/15/24 18:00 Vancomycin 750 Mg/Ns 250 Ml IVPB 11/15/24 18:59 ONCE ONE Ondansetron HCl 4 mg 11/09/24 08:12 Ondansetron Inj 4 Mg/2 Ml Vial IV PUSH Q6H PRN Nausea And Vomiting Pantoprazole Sodium 40 mg 11/09/24 13:20 11/14/24 21:17 Pantoprazole 40 Mg Tablet PO 40 mg Q12HR MARIANO Administration Prednisone 5 mg 11/13/24 14:20 11/14/24 08:53 Prednisone 5 Mg Tablet PO 5 mg DAILY@0800 MARIANO Administration Tacrolimus 1 mg 11/09/24 10:00 11/14/24 21:17 Tacrolimus 0.5 Mg Capsule BY MOUTH 1 mg Q12HR MARIANO Administration Vancomycin HCl 1 each 11/10/24 08:51 Vancomycin For Hemodialysis IVPB PRN PRN Vancomycin Protocol Vitamin D 2,000 units 11/09/24 09:00 11/14/24 08:51 Cholecalciferol 1,000 Units Tablet PO 2,000 units DAILY MARIANO Administration Radiology Results: ITS Impressions Chest X-Ray 11/08/24 15:37 IMPRESSION: No acute cardiopulmonary process. Hip/Pelvis X-Ray 11/08/24 20:28 IMPRESSION: No acute osseous finding in the pelvis or left hip. Abdomen Ultrasound 11/10/24 13:32 IMPRESSION: Prominent atrophy and increased echogenicity of the kidneys, consistent with chronic renal medical disease; no evidence of obstructive uropathy Renal cysts Spleen measures 13 cm length, within upper limits of normal (up to 14 cm) Labs Labs: Laboratory Results - last 24 hr 11/10/24 11/10/24 11/15/24 11:22 22:03 05:56 WBC 6.0 RBC 3.26 L Hgb 9.4 L Hct 30.4 L MCV 93.3 MCH 28.8 MCHC 30.9 L RDW 16.8 H Plt Count 146 L MPV 9.9 Sodium 133 L Potassium 4.0 Chloride 105 Carbon Dioxide 24 Anion Gap 4 BUN 9 Creatinine 4.60 H Estim Creat Clear Calc 11 Estimated GFR 12 L Glucose 87 Calcium 7.8 L Phosphorus 1.9 L Albumin 2.5 L Aldosterone <1 Plasma Free Metaneph 28 Plasma Free Normeta 60 Pls Totl Free Metaneph 88 Stool Norovirus (PCR) Not detected Random Vancomycin 14.1
[2024-11-15] MEDS: EPOETIN ALFA-EPBX 10,000 UNITS/ML VIAL 10000 UNITS IV PUSH (11:12)
[2024-11-15 11:23] LABS: Creatine Kinase < 20 U/L (30-135)
[2024-11-15] MEDS: NIFEdipine 30 MG TAB.ER.24 PO ×2 (11:40→11:41)
--- NOTE | 2024-11-15 14:10 | PC.NURSE ---
pt returned from dialysis
[2024-11-15] MEDS: predniSONE 5 MG TABLET PO (14:35)
[2024-11-15] MEDS: CHOLECALCIFEROL 1,000 UNITS TABLET 2000 UNITS PO (14:37)
[2024-11-15] MEDS: DAPTOmycin 700 MG in SODIUM CHLORIDE 0.9% IV 50 ML 100 MG IVPB (14:38)
--- NOTE | 2024-11-15 17:28 | PC.NURSE ---
pt had refused BP meds following dialysis, BP rechecked at this time 130/67 she states she would like to hold off on those for now, will continue to monitor
[2024-11-15] MEDS: carvediloL 25 MG TABLET PO (20:26)
[2024-11-16 05:16] VITALS: BP 159/54; PULSE 77; RESP 16; TEMP 36.7; O2SAT 100
[2024-11-16 06:14] LABS: Basophils Percent Auto 0.2 % (0.2-1.2); Hematocrit 32.7 % (37.0-47.0); Hemoglobin 10.2 g/dL (12.0-15.0); Immature Granulocyte Absolute 0.03 K/mm3 (0.00-0.031); Immature Granulocyte Percent A 0.5 % (0-0.5); Lymphocytes Absolute Auto 0.76 K/mm3 (0.9-3.2); Lymphocytes Percent Auto 12.7 % (18.3-44.2); Mean Corpuscular HGB Conc 31.2 g/dl (32-36); Mean Corpuscular Hemoglobin 29.2 pg (26-34); Mean Corpuscular Volume 93.7 fl (80-100); Mean Platelet Volume 9.9 fl (7.4-10.4); Monocytes Absolute Auto 0.5 K/mm3 (0.1-0.6); Monocytes Percent Auto 8.5 % (2.6-8.5); Neutrophils Absolute Auto 4.7 K/mm3 (1.3-6.7); Neutrophils Percent Auto 78.1 % (45.5-73.1); Platelet Count Result 168 k/mm3 (150-375); Red Blood Count 3.49 M/mm3 (4.2-5.4); Red Cell Distribution Width 17.2 % (11.5-14.5)
[2024-11-16 06:25] LABS: Albumin Level 2.7 g/dL (3.5-5.1); Anion Gap -1 mmol/L (4-12); Blood Urea Nitrogen 7 mg/dL (7-17); Calcium 8.7 mg/dL (8.4-10.2); Carbon Dioxide 31 mmol/L (22-30); Chloride 106 mmol/L (98-107); Estimated CRCL calculation 16 ml/min; Estimated Glomerular Filt Rate 19; Glucose 95 mg/dL (65-110); Phosphorus 1.8 mg/dL (2.5-4.5); Potassium 4.5 mmol/L (3.4-5.0); Sodium 136 mmol/L (137-145)
[2024-11-16 08:20] VITALS: PULSE 77
[2024-11-16] MEDS: DOXAZOSIN MESYLATE 4 MG TABLET 8 MG PO (08:20)
[2024-11-16] MEDS: carvediloL 25 MG TABLET PO ×2 (08:20→21:24)
[2024-11-16] MEDS: CHOLECALCIFEROL 1,000 UNITS TABLET 2000 UNITS PO (08:20)
[2024-11-16] MEDS: FUROSEMIDE 80 MG TABLET PO ×2 (08:20→19:13)
[2024-11-16] MEDS: NIFEdipine 30 MG TAB.ER.24 PO (08:20)
[2024-11-16] MEDS: predniSONE 5 MG TABLET PO (08:20)
[2024-11-16] MEDS: TACROLIMUS 0.5 MG CAPSULE 1 MG BY MOUTH ×2 (08:20→21:24)
--- NOTE | 2024-11-16 08:57 | PM.IMPN ---
Progress Note: A&P Assessment and Plan (1) UTI (urinary tract infection): Code(s): N39.0 - Urinary tract infection, site not specified Status: Acute (2) Anemia in chronic kidney disease: Code(s): N18.9 - Chronic kidney disease, unspecified; D63.1 - Anemia in chronic kidney disease Status: Acute (3) Essential (primary) hypertension: Code(s): I10 - Essential (primary) hypertension Status: Chronic (4) Dialysis patient: Code(s): Z99.2 - Dependence on renal dialysis Status: Acute (5) Immunosuppression: Code(s): D89.9 - Disorder involving the immune mechanism, unspecified Status: Acute (6) Chronic lupus nephritis: Code(s): M32.14 - Glomerular disease in systemic lupus erythematosus Status: Acute (7) Infective endocarditis: Code(s): 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 Status: Acute Plan This is a 54-year-old female with past medical history significant for lupus nephritis, end-stage renal disease on hemodialysis, failed kidney transplant, anemia of chronic disease. Patient dialyzes 3 times a week comes to the emergency room due to episode of fever, patient denies any cough, nausea, vomiting, has been in her usual state of health up until this point. Preliminary workup in emergency room was significant for hemoglobin of 6.3, a urinalysis was significant for numerous WBCs present. Fever, possible resulting from UTI, infective endocarditis and bacteremia Patient tested negative for COVID RSV and flu. Chest x-ray with no acute cardiopulmonary disease. UA positive for UTI EKG did not show any acute ST-T changes. 2x Blood culture grow Enterococcus faecalis. Urinalysis does note evidence of UTI. Urine culture grows Enterococcus echo report: 1. Complete two-dimensional, color flow and Doppler transthoracic echocardiogram is performed. 2. Left ventricular chamber dimension is normal. 3. Left ventricular systolic function is normal, estimated at 65-70%. 4. There is moderate concentric increased left ventricular wall thickness. 5. The left ventricular diastolic function is grade I diastolic dysfunction. 6. E/e' 20 is elevated. 7. Global longitudinal strain is normal at -19.2%. 8. There is trace aortic valve regurgitation. 9. There is mild mitral valve regurgitation. 10. Small mobile echogenic mass measuring 0.5 cm attached to anterior mitral valve leaflet suggestive of vegetation. 11. There is mild tricuspid valve regurgitation. 12. No pulmonary hypertension, estimated pulmonary arterial systolic pressure is 32 mmHg. 13. There is trace pulmonic regurgitation. repeat BCX on 11/14 Infective endocarditis and bacteremia Patient on levofloxacin and vancomycin. Discontinue Levaquin, continue vancomycin Dosing per pharmacist Repeat blood culture 11/09 and are positive of enterococcus TTE: Small mobile echogenic mass measuring 0.5 cm attached to anterior mitral valve leaflet suggestive of vegetation. 11/14The 3rd set for blood culture has no growth so far Changed to daptomycin IV after discussed with ID pharmacist 11/15 c/w Dr. [place] Severe anemia Denies any active bleeding no blood in stool or urine. She is status post complete hysterectomy. Last colonoscopy in July 2024 was unremarkable. She has been feeling generally weak and also short of breath. She has been having intermittent fever for several weeks now. On arrival to the ED see was borderline febrile with a temperature of 37.9?. Otherwise vitals were stable except for elevated blood pressure. Laboratory studies showed CBC with hemoglobin of 6.3. received 2 units of packed red blood cell transfusion overnight. Her post transfusion hemoglobin is 8.9. and remains stable. occult blood stool negative. Possible due to end-stage renal disease consult vice president of customer service for evaluation treatment End-stage renal disease, hypokalemia Chem panel was unremarkable except for underlying CKD and low potassium of 2.7. Management per vice president of customer service UTI see above History of lupus nephritis status post kidney transplant failed and back on dialysis again Colon polyps Diarrhea intermittent reported. Will get stool studies History of DVT in 2012 Migraine Hypertension DVT prophylaxis SCDs Code status full code Called [facility] and discussed with cardiac service surgeon, plans to transfer the [facility] to [facility] she is now on the waiting list to be transferred to [facility] Subjective Date/time seen: 11/16/24 08:57 Interval history: Patient is afebrile, blood pressure is not controlled, pulse ox 100% room air, labs reviewed, repeat blood culture has no growth so far in 2 days. Patient is on hemodialysis now, patient has no complication, denies headache, chest pain, shortness breast Exam Narrative: GENERAL: Pleasant, in no acute distress. Well-nourished. - EYES: EOMI. Anicteric. - HENT: Moist mucous membranes. - LUNGS: Clear to auscultation bilaterally, no wheezing, rhonchi, or rales. - CARDIOVASCULAR: Regular rate and rhythm. No murmur. No JVD. - ABDOMEN: Soft, non-tender and non-distended. No palpable masses. - EXTREMITIES: No edema. Peripheral pulses 2+. Non-tender. - NEUROLOGIC: No focal neurological deficits. CN II-XII grossly intact. - PSYCHIATRIC: Awake, Alert and oriented x 3. Appropriate mood and affect. General weakness - SKIN: No rashes or lesions. Warm. - LYMPH: No cervical lymphadenopathy. Objective Data Vital Signs Vital Signs: Vital Signs - 24 hr 11/15/24 09:38 11/15/24 09:52 11/15/24 10:00 Temperature 97.9 F Pulse Rate 72 70 69 Respiratory Rate 16 Blood Pressure 164/86 H 158/83 H 169/86 H Pulse Oximetry 99 Oxygen Delivery 11/15/24 10:15 11/15/24 10:30 11/15/24 10:45 Temperature Pulse Rate 70 71 71 Respiratory Rate Blood Pressure 165/81 H 179/83 H 165/84 H Pulse Oximetry Oxygen Delivery 11/15/24 11:00 11/15/24 11:15 11/15/24 11:30 Temperature Pulse Rate 71 69 73 Respiratory Rate Blood Pressure 169/80 H 176/80 H 172/86 H Pulse Oximetry Oxygen Delivery 11/15/24 11:45 11/15/24 12:00 11/15/24 12:15 Temperature Pulse Rate 70 66 77 Respiratory Rate Blood Pressure 169/88 H 177/86 H 157/92 H Pulse Oximetry Oxygen Delivery 11/15/24 12:30 11/15/24 12:45 11/15/24 13:00 Temperature Pulse Rate 79 78 84 Respiratory Rate Blood Pressure 169/92 H 156/86 H 118/70 Pulse Oximetry Oxygen Delivery 11/15/24 13:15 11/15/24 13:25 11/15/24 13:45 Temperature 98.2 F Pulse Rate 84 85 88 Respiratory Rate 18 Blood Pressure 121/64 119/62 103/57 L Pulse Oximetry 98 Oxygen Delivery 11/15/24 14:00 11/15/24 17:26 11/15/24 20:00 Temperature 97.6 F Pulse Rate 86 Respiratory Rate 16 Blood Pressure 121/58 L 130/67 Pulse Oximetry 97 Oxygen Delivery Room Air 11/15/24 20:25 11/16/24 05:16 11/16/24 08:20 Temperature 98.9 F 98.1 F Pulse Rate 91 77 77 Respiratory Rate 20 16 Blood Pressure 132/66 159/54 H Pulse Oximetry 100 100 Oxygen Delivery Intake/Output Intake/Output: Intake & Output 11/13/24 11/14/24 11/15/24 11/16/24 23:59 23:59 23:59 23:59 Intake Total 990 600 800 350 Output Total 1100 1208 50 Balance -110 600 -408 300 Meds/Results Medications: Active Medications Generic Name Dose Route Start Last Admin Trade Name Freq PRN Reason Stop Dose Admin Acetaminophen 650 mg 11/08/24 22:54 11/13/24 07:46 Acetaminophen 325 Mg Tablet PO 650 mg Q4H PRN Administration Mild Pain (1-3) or Fever Carvedilol 25 mg 11/10/24 21:00 11/16/24 08:20 Carvedilol 25 Mg Tablet PO 25 mg Q12HR MARIANO Administration Doxazosin Mesylate 8 mg 11/09/24 09:00 11/16/24 08:20 Doxazosin Mesylate 4 Mg Tablet PO 8 mg DAILY MARIANO Administration Famotidine 10 mg 11/16/24 09:00 11/16/24 08:21 Famotidine 10 Mg Tablet PO Not Given Q12HR MARIANO Furosemide 80 mg 11/09/24 17:00 11/16/24 08:20 Furosemide 80 Mg Tablet PO 80 mg BID MARIANO Administration Albumin Human 50 mls @ 999 mls/hr 11/10/24 10:21 Albutein IVPB 12/10/24 10:20 Q10M PRN HYPOTENSION Daptomycin 700 mg/ Sodium 50 mls @ 100 mls/hr 11/15/24 12:30 11/15/24 15:08 Chloride IVPB Infused Q48HR MARIANO Infusion Nifedipine 30 mg 11/15/24 11:35 11/16/24 08:20 Nifedipine 30 Mg Tab.Er.24 PO 30 mg QAM MARIANO Administration Ondansetron HCl 4 mg 11/09/24 08:12 Ondansetron Inj 4 Mg/2 Ml Vial IV PUSH Q6H PRN Nausea And Vomiting Prednisone 5 mg 11/13/24 14:20 11/16/24 08:20 Prednisone 5 Mg Tablet PO 5 mg DAILY@0800 MARIANO Administration Tacrolimus 1 mg 11/09/24 10:00 11/16/24 08:20 Tacrolimus 0.5 Mg Capsule BY MOUTH 1 mg Q12HR MARIANO Administration Vitamin D 2,000 units 11/09/24 09:00 11/16/24 08:20 Cholecalciferol 1,000 Units Tablet PO 2,000 units DAILY MARIANO Administration Radiology Results: ITS Impressions Chest X-Ray 11/08/24 15:37 IMPRESSION: No acute cardiopulmonary process. Hip/Pelvis X-Ray 11/08/24 20:28 IMPRESSION: No acute osseous finding in the pelvis or left hip. Abdomen Ultrasound 11/10/24 13:32 IMPRESSION: Prominent atrophy and increased echogenicity of the kidneys, consistent with chronic renal medical disease; no evidence of obstructive uropathy Renal cysts Spleen measures 13 cm length, within upper limits of normal (up to 14 cm) Labs Labs: Laboratory Results - last 24 hr 11/10/24 11/15/24 11/16/24 11:22 05:56 05:58 WBC 6.0 RBC 3.49 L Hgb 10.2 L Hct 32.7 L MCV 93.7 MCH 29.2 MCHC 31.2 L RDW 17.2 H Plt Count 168 MPV 9.9 Immature Gran % (Auto) 0.5 Neut % (Auto) 78.1 H Lymph % (Auto) 12.7 L [place] % (Auto) 8.5 Eos % (Auto) 0.0 Baso % (Auto) 0.2 Lymph # (Auto) 0.76 L [place] # (Auto) 0.5 Eos # (Auto) 0.0 Baso # (Auto) 0.0 Abs Immat Gran (auto) 0.03 Absolute Neuts (auto) 4.7 Absolute Nucleated RBC 0.000 Nucleated RBC % 0.0 Sodium 136 L Potassium 4.5 Chloride 106 Carbon Dioxide 31 H Anion Gap -1 L BUN 7 Creatinine 3.15 H Estim Creat Clear Calc 16 Estimated GFR 19 L Glucose 95 Calcium 8.7 Phosphorus 1.8 L Total Creatine Kinase < 20 L Albumin 2.7 L Aldosterone <1
--- NOTE | 2024-11-16 10:35 | PC.NURSE ---
Addendum entered by Antonieta Mitchell RN 11/16/24 18:04: Spoke with Karol from [facility] [employer] and update her on patients continued stable condition. [facility] still at maximum capasity. [facility] would like to be updated with any changes to patient's status at [phone] Original Note: Patient resting in bed, with a mask from home in place, during morning assessment. Patient cooperative and calm. She is aware she is waiting for transfer to [facility]. Patient states she has some of her home medications with her. MAR does not list them to use home dose so patient was instructed not to take them until the MD restarts them for her. Patients states she was told the hospital does not carry them and I told her if/when the doctor restarts them we will verify them and utilize her home dose AFTER pharmacy verifies and adds them to her MAR. Patient states [facility] this AM 11/16/24. Will communicate any updates with patient.
--- NOTE | 2024-11-16 10:55 | P.PNNP_ITS ---
Progress Note: A&P Assessment and Plan (1) End stage renal disease: Code(s): N18.6 - End stage renal disease Status: Chronic Assessment and Plan: * HD finished yesterday and meena be done on monday. * continue outpatient M/W/ dialysis schedule * volume status is okay * K and CO2 is okay (2) Infective endocarditis: Code(s): 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 Status: Acute Assessment and Plan: * as noted by Echo (on 11/11): * left ventricular systolic function is normal, estimated at 65-70% * trace aortic valve regurgitation * mild mitral valve regurgitation * small mobile echogenic mass measuring 0.5 cm attached to anterior mitral valve leaflet suggestive of vegetation * mild tricuspid valve regurgitation * on antibiotics. changed from vanco to dapto. * CTS evaluation pending - awaiting transfer to [facility] (3) Bacteremia: Code(s): R78.81 - Bacteremia Status: Acute Assessment and Plan: * culture results noted: * blood cultures (from 11/09) - Enterococcus faecalis * urine culture (from 11/08) - Enterococcus faecalis * blood culture (from 11/11) - Enterococcus faecalis * now complicated by #2 * this issue may have progressed since on immunosuppression medications (to maintain residual kidney function of transplant kidney) * on dapto * follow repeat cultures (4) Anemia: Code(s): D64.9 - Anemia, unspecified Status: Acute Assessment and Plan: * severity/recurrence out of proportion to blame ESRD alaon * H/H doing better currently * s/p PRBC transfusion * suspect possible resistance to PRESTON/Mircera due to #3 (?) * however, her lupus could be contributing as well * low complements noted -- related to #2 (?) * ELLEN pending; dsDNA-Ab negative * serum and urine immunofixation with IgG kappa monoclonal band * Hem/Onc recommendations noted * Epogen with dialysis * hb is good (5) UTI (urinary tract infection): Code(s): N39.0 - Urinary tract infection, site not specified Status: Acute Assessment and Plan: * urine culture with Enterococcus (see #3) * on dapto (6) Essential (primary) hypertension: Code(s): I10 - Essential (primary) hypertension Status: Chronic Assessment and Plan: * better on nifedipine.. * continue home BP medications * follow trend of hemodynamics (7) Failed kidney transplant: Code(s): T86.12 - Kidney transplant failure Status: Chronic Assessment and Plan: * s/p renal transplantation in 09/14/2019 * transplant failure in March 2021 * restarted on dialysis at that time * remains on tacrolimus and prednisone to maintain residual transplant kidney function (8) Renal osteodystrophy: Code(s): N25.0 - Renal osteodystrophy Status: Acute Assessment and Plan: * potassium and calcium better. * Phosphorus still low. * liberalized diet . Encourage p.o. intake * holding phosphate binders Subjective Date/time seen: 11/16/24 10:55 Interval history: patient feels good today. Breathing fine. Did well for the remainder of her dialysis yesterday except that her blood pressure was high so we switched her at that point to the nifedipine. Exam Narrative: General: WD/WN female in NAD Heart: normal S1 and S2; no rub Or gallop Lungs: clear to auscultation Abdomen: soft, nontender, nondistended, positive bowel sounds Extremities: no cyanosis or clubbing; no edema Skin: no nodules Objective Data Vital Signs Vital Signs: Vital Signs - 24 hr 11/15/24 11:00 11/15/24 11:15 11/15/24 11:30 Temperature Pulse Rate 71 69 73 Respiratory Rate Blood Pressure 169/80 H 176/80 H 172/86 H Pulse Oximetry Oxygen Delivery 11/15/24 11:45 11/15/24 12:00 11/15/24 12:15 Temperature Pulse Rate 70 66 77 Respiratory Rate Blood Pressure 169/88 H 177/86 H 157/92 H Pulse Oximetry Oxygen Delivery 11/15/24 12:30 11/15/24 12:45 11/15/24 13:00 Temperature Pulse Rate 79 78 84 Respiratory Rate Blood Pressure 169/92 H 156/86 H 118/70 Pulse Oximetry Oxygen Delivery 11/15/24 13:15 11/15/24 13:25 11/15/24 13:45 Temperature 98.2 F Pulse Rate 84 85 88 Respiratory Rate 18 Blood Pressure 121/64 119/62 103/57 L Pulse Oximetry 98 Oxygen Delivery 11/15/24 14:00 11/15/24 17:26 11/15/24 20:00 Temperature 97.6 F Pulse Rate 86 Respiratory Rate 16 Blood Pressure 121/58 L 130/67 Pulse Oximetry 97 Oxygen Delivery Room Air 11/15/24 20:25 11/16/24 05:16 11/16/24 08:20 Temperature 98.9 F 98.1 F Pulse Rate 91 77 77 Respiratory Rate 20 16 Blood Pressure 132/66 159/54 H Pulse Oximetry 100 100 Oxygen Delivery Intake/Output Intake/Output: Intake & Output 11/13/24 11/14/24 11/15/24 11/16/24 23:59 23:59 23:59 23:59 Intake Total 990 600 800 350 Output Total 1100 1208 50 Balance -110 600 -408 300 Meds/Results Medications: Active Medications Generic Name Dose Route Start Last Admin Trade Name Freq PRN Reason Stop Dose Admin Acetaminophen 650 mg 11/08/24 22:54 11/13/24 07:46 Acetaminophen 325 Mg Tablet PO 650 mg Q4H PRN Administration Mild Pain (1-3) or Fever Carvedilol 25 mg 11/10/24 21:00 11/16/24 08:20 Carvedilol 25 Mg Tablet PO 25 mg Q12HR MARIANO Administration Doxazosin Mesylate 8 mg 11/09/24 09:00 11/16/24 08:20 Doxazosin Mesylate 4 Mg Tablet PO 8 mg DAILY MARIANO Administration Famotidine 10 mg 11/16/24 09:00 11/16/24 08:21 Famotidine 10 Mg Tablet PO Not Given Q12HR MARIANO Furosemide 80 mg 11/09/24 17:00 11/16/24 08:20 Furosemide 80 Mg Tablet PO 80 mg BID MARIANO Administration Albumin Human 50 mls @ 999 mls/hr 11/10/24 10:21 Albutein IVPB 12/10/24 10:20 Q10M PRN HYPOTENSION Daptomycin 700 mg/ Sodium 50 mls @ 100 mls/hr 11/15/24 12:30 11/15/24 15:08 Chloride IVPB Infused Q48HR MARIANO Infusion Nifedipine 30 mg 11/15/24 11:35 11/16/24 08:20 Nifedipine 30 Mg Tab.Er.24 PO 30 mg QAM MARIANO Administration Ondansetron HCl 4 mg 11/09/24 08:12 Ondansetron Inj 4 Mg/2 Ml Vial IV PUSH Q6H PRN Nausea And Vomiting Prednisone 5 mg 11/13/24 14:20 11/16/24 08:20 Prednisone 5 Mg Tablet PO 5 mg DAILY@0800 MARIANO Administration Tacrolimus 1 mg 11/09/24 10:00 11/16/24 08:20 Tacrolimus 0.5 Mg Capsule BY MOUTH 1 mg Q12HR MARIANO Administration Vitamin D 2,000 units 11/09/24 09:00 11/16/24 08:20 Cholecalciferol 1,000 Units Tablet PO 2,000 units DAILY MARIANO Administration Radiology Results: ITS Impressions Chest X-Ray 11/08/24 15:37 IMPRESSION: No acute cardiopulmonary process. Hip/Pelvis X-Ray 11/08/24 20:28 IMPRESSION: No acute osseous finding in the pelvis or left hip. Abdomen Ultrasound 11/10/24 13:32 IMPRESSION: Prominent atrophy and increased echogenicity of the kidneys, consistent with chronic renal medical disease; no evidence of obstructive uropathy Renal cysts Spleen measures 13 cm length, within upper limits of normal (up to 14 cm) Labs Labs: Laboratory Results - last 24 hr 11/15/24 11/16/24 05:56 05:58 WBC 6.0 RBC 3.49 L Hgb 10.2 L Hct 32.7 L MCV 93.7 MCH 29.2 MCHC 31.2 L RDW 17.2 H Plt Count 168 MPV 9.9 Immature Gran % (Auto) 0.5 Neut % (Auto) 78.1 H Lymph % (Auto) 12.7 L [place] % (Auto) 8.5 Eos % (Auto) 0.0 Baso % (Auto) 0.2 Lymph # (Auto) 0.76 L [place] # (Auto) 0.5 Eos # (Auto) 0.0 Baso # (Auto) 0.0 Abs Immat Gran (auto) 0.03 Absolute Neuts (auto) 4.7 Absolute Nucleated RBC 0.000 Nucleated RBC % 0.0 Sodium 136 L Potassium 4.5 Chloride 106 Carbon Dioxide 31 H Anion Gap -1 L BUN 7 Creatinine 3.15 H Estim Creat Clear Calc 16 Estimated GFR 19 L Glucose 95 Calcium 8.7 Phosphorus 1.8 L Total Creatine Kinase < 20 L Albumin 2.7 L
[2024-11-16 14:00] VITALS: BP 120/69; PULSE 89; RESP 18; TEMP 36.4; O2SAT 100
[2024-11-16 20:30] VITALS: BP 131/69; PULSE 85; RESP 16; TEMP 36.8; O2SAT 100
[2024-11-17 04:25] VITALS: BP 180/64; PULSE 74; RESP 16; TEMP 36.2; O2SAT 100
[2024-11-17 06:44] LABS: Basophils Percent Auto 0.2 % (0.2-1.2); Eosinophils Percent Auto 0.4 % (0-4.4); Hemoglobin 9.1 g/dL (12.0-15.0); Immature Granulocyte Absolute 0.02 K/mm3 (0.00-0.031); Immature Granulocyte Percent A 0.4 % (0-0.5); Lymphocytes Absolute Auto 1.02 K/mm3 (0.9-3.2); Lymphocytes Percent Auto 18.5 % (18.3-44.2); Mean Corpuscular HGB Conc 30.3 g/dl (32-36); Mean Corpuscular Hemoglobin 28.6 pg (26-34); Mean Corpuscular Volume 94.3 fl (80-100); Mean Platelet Volume 9.8 fl (7.4-10.4); Monocytes Absolute Auto 0.6 K/mm3 (0.1-0.6); Monocytes Percent Auto 11.4 % (2.6-8.5); Neutrophils Absolute Auto 3.8 K/mm3 (1.3-6.7); Neutrophils Percent Auto 69.1 % (45.5-73.1); Platelet Count Result 155 k/mm3 (150-375); Red Blood Count 3.18 M/mm3 (4.2-5.4); Red Cell Distribution Width 17.2 % (11.5-14.5); White Blood Count 5.5 K/mm3 (4.5-10.0)
[2024-11-17 06:45] LABS: Albumin Level 2.5 g/dL (3.5-5.1); Anion Gap 3 mmol/L (4-12); Blood Urea Nitrogen 15 mg/dL (7-17); Calcium 8.4 mg/dL (8.4-10.2); Carbon Dioxide 27 mmol/L (22-30); Chloride 106 mmol/L (98-107); Estimated CRCL calculation 11 ml/min; Estimated Glomerular Filt Rate 13; Glucose 87 mg/dL (65-110); Phosphorus 1.9 mg/dL (2.5-4.5); Potassium 4.6 mmol/L (3.4-5.0); Sodium 136 mmol/L (137-145)
[2024-11-17 08:00] VITALS: PULSE 74; RESP 16; O2SAT 100
--- NOTE | 2024-11-17 08:51 | P.PNIM_ITS ---
Progress Note: A&P Assessment and Plan (1) UTI (urinary tract infection): Code(s): N39.0 - Urinary tract infection, site not specified Status: Acute (2) Anemia in chronic kidney disease: Code(s): N18.9 - Chronic kidney disease, unspecified; D63.1 - Anemia in chronic kidney disease Status: Acute (3) Essential (primary) hypertension: Code(s): I10 - Essential (primary) hypertension Status: Chronic (4) Dialysis patient: Code(s): Z99.2 - Dependence on renal dialysis Status: Acute (5) Immunosuppression: Code(s): D89.9 - Disorder involving the immune mechanism, unspecified Status: Acute (6) Chronic lupus nephritis: Code(s): M32.14 - Glomerular disease in systemic lupus erythematosus Status: Acute (7) Infective endocarditis: Code(s): 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 Status: Acute Plan This is a 54-year-old female with past medical history significant for lupus nephritis, end-stage renal disease on hemodialysis, failed kidney transplant, anemia of chronic disease. Patient dialyzes 3 times a week comes to the emergency room due to episode of fever, patient denies any cough, nausea, vomiting, has been in her usual state of health up until this point. Preliminary workup in emergency room was significant for hemoglobin of 6.3, a urinalysis was significant for numerous WBCs present. Fever, possible resulting from UTI, infective endocarditis and bacteremia Patient tested negative for COVID RSV and flu. Chest x-ray with no acute cardiopulmonary disease. UA positive for UTI EKG did not show any acute ST-T changes. 2x Blood culture grow Enterococcus faecalis. Urinalysis does note evidence of UTI. Urine culture grows Enterococcus echo report: 1. Complete two-dimensional, color flow and Doppler transthoracic echocardiogram is performed. 2. Left ventricular chamber dimension is normal. 3. Left ventricular systolic function is normal, estimated at 65-70%. 4. There is moderate concentric increased left ventricular wall thickness. 5. The left ventricular diastolic function is grade I diastolic dysfunction. 6. E/e' 20 is elevated. 7. Global longitudinal strain is normal at -19.2%. 8. There is trace aortic valve regurgitation. 9. There is mild mitral valve regurgitation. 10. Small mobile echogenic mass measuring 0.5 cm attached to anterior mitral valve leaflet suggestive of vegetation. 11. There is mild tricuspid valve regurgitation. 12. No pulmonary hypertension, estimated pulmonary arterial systolic pressure is 32 mmHg. 13. There is trace pulmonic regurgitation. repeat BCX on 11/14 no growth so far Infective endocarditis and bacteremia Patient on levofloxacin and vancomycin. Discontinue Levaquin, continue vancomycin Dosing per pharmacist Repeat blood culture 11/09 and are positive of enterococcus TTE: Small mobile echogenic mass measuring 0.5 cm attached to anterior mitral valve leaflet suggestive of vegetation. 11/14The 3rd set for blood culture has no growth so far Changed to daptomycin IV after discussed with ID pharmacist 11/15 c/w Dr. [place] Severe anemia Denies any active bleeding no blood in stool or urine. She is status post complete hysterectomy. Last colonoscopy in July 2024 was unremarkable. She has been feeling generally weak and also short of breath. She has been having intermittent fever for several weeks now. On arrival to the ED see was borderline febrile with a temperature of 37.9?. Otherwise vitals were stable except for elevated blood pressure. Laboratory studies showed CBC with hemoglobin of 6.3. received 2 units of packed red blood cell transfusion overnight. Her post transfusion hemoglobin is 8.9. and remains stable. occult blood stool negative. Possible due to end-stage renal disease consult gearcase assembler for evaluation treatment End-stage renal disease, hypokalemia Chem panel was unremarkable except for underlying CKD and low potassium of 2.7. Management per gearcase assembler UTI see above History of lupus nephritis status post kidney transplant failed and back on dialysis again Colon polyps Diarrhea intermittent reported. Will get stool studies History of DVT in 2012 Migraine Hypertension DVT prophylaxis SCDs Code status full code Called [facility] and discussed with cardiac service surgeon, plans to transfer the patient to [facility] she is now on the waiting list to be transferred to [facility] Subjective Date/time seen: 11/17/24 08:51 Interval history: Patient is afebrile, blood pressure is not controlled 180/64, pulse ox 100% room air, labs reviewed, repeated blood culture on 11/14 has no growth so far , denies headache, chest pain, shortness of breath, abdomen pain, nausea vomiting Exam Narrative: GENERAL: Pleasant, in no acute distress. Well-nourished. - EYES: EOMI. Anicteric. - HENT: Moist mucous membranes. - LUNGS: Clear to auscultation bilateral ly, no wheezing, rhonchi, or rales. - CARDIOVASCULAR: Regular rate and rhyth m. No murmur. No JVD. - ABDOMEN: Soft, non-tender and non-dist ended. No palpable masses. - EXTREMITIES: No edema. Peripheral puls es 2+. Non-tender. - NEUROLOGIC: No focal neurological defi cits. CN II-XII grossly intact. - PSYCHIATRIC: Awake, Alert and oriented x 3. Appropriate mood and affect. General weakness - SKIN: No rashes or lesions. Warm. - LYMPH: No cervical lymphadenopathy. Objective Data Vital Signs Vital Signs: Vital Signs - 24 hr 11/16/24 14:00 11/16/24 20:00 11/16/24 20:30 Temperature 97.5 F L 98.2 F Pulse Rate 89 85 Respiratory Rate 18 16 Blood Pressure 120/69 131/69 Pulse Oximetry 100 100 Oxygen Delivery Room Air 11/17/24 04:25 Temperature 97.2 F L Pulse Rate 74 Respiratory Rate 16 Blood Pressure 180/64 H Pulse Oximetry 100 Oxygen Delivery Intake/Output Intake/Output: Intake & Output 11/14/24 11/15/24 11/16/24 11/17/24 23:59 23:59 23:59 23:59 Intake Total 860 284 5672 500 Output Total 1208 130 0 Balance 600 -408 1600 500 Meds/Results Medications: Active Medications Generic Name Dose Route Start Last Admin Trade Name Freq PRN Reason Stop Dose Admin Acetaminophen 650 mg 11/08/24 22:54 11/13/24 07:46 Acetaminophen 325 Mg Tablet PO 650 mg Q4H PRN Administration Mild Pain (1-3) or Fever Carvedilol 25 mg 11/10/24 21:00 11/16/24 21:24 Carvedilol 25 Mg Tablet PO 25 mg Q12HR MARIANO Administration Doxazosin Mesylate 8 mg 11/09/24 09:00 11/16/24 08:20 Doxazosin Mesylate 4 Mg Tablet PO 8 mg DAILY MARIANO Administration Famotidine 10 mg 11/16/24 09:00 11/16/24 21:25 Famotidine 10 Mg Tablet PO Not Given Q12HR MARIANO Furosemide 80 mg 11/09/24 17:00 11/16/24 19:13 Furosemide 80 Mg Tablet PO 80 mg BID MARIANO Administration Albumin Human 50 mls @ 999 mls/hr 11/10/24 10:21 Albutein IVPB 12/10/24 10:20 Q10M PRN HYPOTENSION Daptomycin 700 mg/ Sodium 50 mls @ 100 mls/hr 11/15/24 12:30 11/15/24 15:08 Chloride IVPB Infused Q48HR MARIANO Infusion Nifedipine 30 mg 11/15/24 11:35 11/16/24 08:20 Nifedipine 30 Mg Tab.Er.24 PO 30 mg QAM MARIANO Administration Ondansetron HCl 4 mg 11/09/24 08:12 Ondansetron Inj 4 Mg/2 Ml Vial IV PUSH Q6H PRN Nausea And Vomiting Prednisone 5 mg 11/13/24 14:20 11/16/24 08:20 Prednisone 5 Mg Tablet PO 5 mg DAILY@0800 MARIANO Administration Tacrolimus 1 mg 11/09/24 10:00 11/16/24 21:24 Tacrolimus 0.5 Mg Capsule BY MOUTH 1 mg Q12HR MARIANO Administration Vitamin D 2,000 units 11/09/24 09:00 11/16/24 08:20 Cholecalciferol 1,000 Units Tablet PO 2,000 units DAILY MARIANO Administration Radiology Results: ITS Impressions Chest X-Ray 11/08/24 15:37 IMPRESSION: No acute cardiopulmonary process. Hip/Pelvis X-Ray 11/08/24 20:28 IMPRESSION: No acute osseous finding in the pelvis or left hip. Abdomen Ultrasound 11/10/24 13:32 IMPRESSION: Prominent atrophy and increased echogenicity of the kidneys, consistent with chronic renal medical disease; no evidence of obstructive uropathy Renal cysts Spleen measures 13 cm length, within upper limits of normal (up to 14 cm) Labs Labs: Laboratory Results - last 24 hr 11/17/24 05:43 WBC 5.5 RBC 3.18 L Hgb 9.1 L Hct 30.0 L MCV 94.3 MCH 28.6 MCHC 30.3 L RDW 17.2 H Plt Count 155 MPV 9.8 Immature Gran % (Auto) 0.4 Neut % (Auto) 69.1 Lymph % (Auto) 18.5 [place] % (Auto) 11.4 H Eos % (Auto) 0.4 Baso % (Auto) 0.2 Lymph # (Auto) 1.02 [place] # (Auto) 0.6 Eos # (Auto) 0.0 Baso # (Auto) 0.0 Abs Immat Gran (auto) 0.02 Absolute Neuts (auto) 3.8 Absolute Nucleated RBC 0.000 Nucleated RBC % 0.0 Sodium 136 L Potassium 4.6 Chloride 106 Carbon Dioxide 27 Anion Gap 3 L BUN 15 D Creatinine 4.42 H Estim Creat Clear Calc 11 Estimated GFR 13 L Glucose 87 Calcium 8.4 Phosphorus 1.9 L Albumin 2.5 L
--- NOTE | 2024-11-17 08:55 | P.PNNP_ITS ---
Progress Note: A&P Assessment and Plan (1) End stage renal disease: Code(s): N18.6 - End stage renal disease Status: Chronic Assessment and Plan: * HD due tomorrow * continue outpatient M/W/F dialysis schedule * volume status is doing well * Jacquie mcintosh (2) Infective endocarditis: Code(s): 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 Status: Acute Assessment and Plan: * as noted by Echo (on 11/11): * left ventricular systolic function is normal, estimated at 65-70% * trace aortic valve regurgitation * mild mitral valve regurgitation * small mobile echogenic mass measuring 0.5 cm attached to anterior mitral valve leaflet suggestive of vegetation * mild tricuspid valve regurgitation * on antibiotics. changed from vanco to dapto. * awaiting transfer to [facility] (3) Bacteremia: Code(s): R78.81 - Bacteremia Status: Acute Assessment and Plan: * culture results noted: * blood cultures (from 11/09) - Enterococcus faecalis * urine culture (from 11/08) - Enterococcus faecalis * blood culture (from 11/11) - Enterococcus faecalis * now complicated by #2 * this issue may have progressed since on immunosuppression medications (to maintain residual kidney function of transplant kidney) * on dapto * repeat cultures on November 14 are negative after 24 (4) Anemia: Code(s): D64.9 - Anemia, unspecified Status: Acute Assessment and Plan: * severity/recurrence out of proportion to blame ESRD alaon * H/H doing better currently * s/p PRBC transfusion * suspect possible resistance to PRESTON/Mircera due to #3 (?) * however, her lupus could be contributing as well * low complements noted -- related to #2 (?) * ELLEN pending; dsDNA-Ab negative * serum and urine immunofixation with IgG kappa monoclonal band * Hem/Onc recommendations noted * Epogen with dialysis * hb is stable (5) UTI (urinary tract infection): Code(s): N39.0 - Urinary tract infection, site not specified Status: Acute Assessment and Plan: * urine culture with Enterococcus (see #3) * on dapto (6) Essential (primary) hypertension: Code(s): I10 - Essential (primary) hypertension Status: Chronic Assessment and Plan: * better on nifedipine. * it still is quite variable. * Will order p.r.n. (7) Failed kidney transplant: Code(s): T86.12 - Kidney transplant failure Status: Chronic Assessment and Plan: * s/p renal transplantation in 09/14/2019 * transplant failure in March 2021 * restarted on dialysis at that time * remains on tacrolimus and prednisone to maintain residual transplant kidney function (8) Renal osteodystrophy: Code(s): N25.0 - Renal osteodystrophy Status: Acute Assessment and Plan: * potassium and calcium better. * Phosphorus still low. * liberalized diet . Encourage p.o. intake * phosphorus constantly low. Will give a short oral supplement Subjective Date/time seen: 11/17/24 08:55 Interval history: Lagloria is feeling good today. Slept well. No shortness of breath Exam Narrative: General: WD/WN female in NAD Heart: normal S1 and S2; no rub Or gallop Lungs: clear to auscultation Abdomen: soft, nontender, nondistended, positive bowel sounds Extremities: no cyanosis or clubbing; no edema Skin: no nodules Objective Data Vital Signs Vital Signs: Vital Signs - 24 hr 11/16/24 14:00 11/16/24 20:00 11/16/24 20:30 Temperature 97.5 F L 98.2 F Pulse Rate 89 85 Respiratory Rate 18 16 Blood Pressure 120/69 131/69 Pulse Oximetry 100 100 Oxygen Delivery Room Air 11/17/24 04:25 Temperature 97.2 F L Pulse Rate 74 Respiratory Rate 16 Blood Pressure 180/64 H Pulse Oximetry 100 Oxygen Delivery Intake/Output Intake/Output: Intake & Output 11/14/24 11/15/24 11/16/24 11/17/24 23:59 23:59 23:59 23:59 Intake Total 508 091 9915 500 Output Total 1208 130 0 Balance 600 -408 1600 500 Meds/Results Medications: Active Medications Generic Name Dose Route Start Last Admin Trade Name Freq PRN Reason Stop Dose Admin Acetaminophen 650 mg 11/08/24 22:54 11/13/24 07:46 Acetaminophen 325 Mg Tablet PO 650 mg Q4H PRN Administration Mild Pain (1-3) or Fever Carvedilol 25 mg 11/10/24 21:00 11/16/24 21:24 Carvedilol 25 Mg Tablet PO 25 mg Q12HR MARIANO Administration Doxazosin Mesylate 8 mg 11/09/24 09:00 11/16/24 08:20 Doxazosin Mesylate 4 Mg Tablet PO 8 mg DAILY MARIANO Administration Famotidine 10 mg 11/16/24 09:00 11/16/24 21:25 Famotidine 10 Mg Tablet PO Not Given Q12HR MARIANO Furosemide 80 mg 11/09/24 17:00 11/16/24 19:13 Furosemide 80 Mg Tablet PO 80 mg BID MARIANO Administration Albumin Human 50 mls @ 999 mls/hr 11/10/24 10:21 Albutein IVPB 12/10/24 10:20 Q10M PRN HYPOTENSION Daptomycin 700 mg/ Sodium 50 mls @ 100 mls/hr 11/15/24 12:30 11/15/24 15:08 Chloride IVPB Infused Q48HR MARIANO Infusion Nifedipine 30 mg 11/15/24 11:35 11/16/24 08:20 Nifedipine 30 Mg Tab.Er.24 PO 30 mg QAM MARIANO Administration Ondansetron HCl 4 mg 11/09/24 08:12 Ondansetron Inj 4 Mg/2 Ml Vial IV PUSH Q6H PRN Nausea And Vomiting Prednisone 5 mg 11/13/24 14:20 11/16/24 08:20 Prednisone 5 Mg Tablet PO 5 mg DAILY@0800 MARIANO Administration Tacrolimus 1 mg 11/09/24 10:00 11/16/24 21:24 Tacrolimus 0.5 Mg Capsule BY MOUTH 1 mg Q12HR MARIANO Administration Vitamin D 2,000 units 11/09/24 09:00 11/16/24 08:20 Cholecalciferol 1,000 Units Tablet PO 2,000 units DAILY MARIANO Administration Radiology Results: ITS Impressions Chest X-Ray 11/08/24 15:37 IMPRESSION: No acute cardiopulmonary process. Hip/Pelvis X-Ray 11/08/24 20:28 IMPRESSION: No acute osseous finding in the pelvis or left hip. Abdomen Ultrasound 11/10/24 13:32 IMPRESSION: Prominent atrophy and increased echogenicity of the kidneys, consistent with chronic renal medical disease; no evidence of obstructive uropathy Renal cysts Spleen measures 13 cm length, within upper limits of normal (up to 14 cm) Labs Labs: Laboratory Results - last 24 hr 11/17/24 05:43 WBC 5.5 RBC 3.18 L Hgb 9.1 L Hct 30.0 L MCV 94.3 MCH 28.6 MCHC 30.3 L RDW 17.2 H Plt Count 155 MPV 9.8 Immature Gran % (Auto) 0.4 Neut % (Auto) 69.1 Lymph % (Auto) 18.5 [place] % (Auto) 11.4 H Eos % (Auto) 0.4 Baso % (Auto) 0.2 Lymph # (Auto) 1.02 [place] # (Auto) 0.6 Eos # (Auto) 0.0 Baso # (Auto) 0.0 Abs Immat Gran (auto) 0.02 Absolute Neuts (auto) 3.8 Absolute Nucleated RBC 0.000 Nucleated RBC % 0.0 Sodium 136 L Potassium 4.6 Chloride 106 Carbon Dioxide 27 Anion Gap 3 L BUN 15 D Creatinine 4.42 H Estim Creat Clear Calc 11 Estimated GFR 13 L Glucose 87 Calcium 8.4 Phosphorus 1.9 L Albumin 2.5 L
[2024-11-17] MEDS: CHOLECALCIFEROL 1,000 UNITS TABLET 2000 UNITS PO (09:17)
[2024-11-17] MEDS: predniSONE 5 MG TABLET PO (09:17)
[2024-11-17] MEDS: DOXAZOSIN MESYLATE 4 MG TABLET 8 MG PO (09:17)
[2024-11-17] MEDS: TACROLIMUS 0.5 MG CAPSULE 1 MG BY MOUTH ×2 (09:17→21:10)
[2024-11-17] MEDS: FUROSEMIDE 80 MG TABLET PO ×2 (09:17→16:46)
[2024-11-17] MEDS: carvediloL 25 MG TABLET PO ×2 (09:17→21:10)
[2024-11-17] MEDS: NIFEdipine 30 MG TAB.ER.24 PO (09:18)
[2024-11-17] MEDS: DAPTOmycin 700 MG in SODIUM CHLORIDE 0.9% IV 50 ML 100 MG IVPB (09:27)
[2024-11-17] MEDS: POTASSIUM/PHOSPHORUS/SODIUM 1.5 GM PACKET 1 PACKET PO ×3 (09:29→16:46)
[2024-11-17 14:00] VITALS: BP 132/72; PULSE 84; RESP 18; TEMP 36.4; O2SAT 100
[2024-11-17 19:42] VITALS: BP 158/85; PULSE 77; RESP 18; TEMP 36.3; O2SAT 100
[2024-11-17 21:10] VITALS: PULSE 77
[2024-11-18] VITALS (23 sets, daily range): BP systolic 148–196; BP diastolic 78–94; PULSE 60–82; RESP 15–20; TEMP 36.6–37; O2SAT 100
[2024-11-18] MEDS: cloNIDine HCL 0.1 MG TABLET PO (05:04)
[2024-11-18 07:42] LABS: Basophils Percent Auto 0.1 % (0.2-1.2); Eosinophils Percent Auto 0.3 % (0-4.4); Hematocrit 29.4 % (37.0-47.0); Hemoglobin 8.9 g/dL (12.0-15.0); Immature Granulocyte Absolute 0.03 K/mm3 (0.00-0.031); Immature Granulocyte Percent A 0.4 % (0-0.5); Lymphocytes Absolute Auto 1.16 K/mm3 (0.9-3.2); Lymphocytes Percent Auto 17.2 % (18.3-44.2); Mean Corpuscular HGB Conc 30.3 g/dl (32-36); Mean Corpuscular Hemoglobin 28.9 pg (26-34); Mean Corpuscular Volume 95.5 fl (80-100); Mean Platelet Volume 10.3 fl (7.4-10.4); Monocytes Absolute Auto 0.6 K/mm3 (0.1-0.6); Monocytes Percent Auto 9.3 % (2.6-8.5); Neutrophils Absolute Auto 4.9 K/mm3 (1.3-6.7); Neutrophils Percent Auto 72.7 % (45.5-73.1); Platelet Count Result 163 k/mm3 (150-375); Red Blood Count 3.08 M/mm3 (4.2-5.4); Red Cell Distribution Width 17.4 % (11.5-14.5); White Blood Count 6.8 K/mm3 (4.5-10.0)
[2024-11-18 08:04] LABS: Albumin Level 2.4 g/dL (3.5-5.1); Anion Gap 3 mmol/L (4-12); Blood Urea Nitrogen 20 mg/dL (7-17); Calcium 8.5 mg/dL (8.4-10.2); Carbon Dioxide 23 mmol/L (22-30); Chloride 108 mmol/L (98-107); Estimated CRCL calculation 9 ml/min; Estimated Glomerular Filt Rate 9; Glucose 74 mg/dL (65-110); Phosphorus 2.3 mg/dL (2.5-4.5); Potassium 5.9 mmol/L (3.4-5.0); Sodium 134 mmol/L (137-145)
--- NOTE | 2024-11-18 08:56 | P.PNIM_ITS ---
Progress Note: A&P Assessment and Plan (1) UTI (urinary tract infection): Code(s): N39.0 - Urinary tract infection, site not specified Status: Acute (2) Anemia in chronic kidney disease: Code(s): N18.9 - Chronic kidney disease, unspecified; D63.1 - Anemia in chronic kidney disease Status: Acute (3) Essential (primary) hypertension: Code(s): I10 - Essential (primary) hypertension Status: Chronic (4) Dialysis patient: Code(s): Z99.2 - Dependence on renal dialysis Status: Acute (5) Immunosuppression: Code(s): D89.9 - Disorder involving the immune mechanism, unspecified Status: Acute (6) Chronic lupus nephritis: Code(s): M32.14 - Glomerular disease in systemic lupus erythematosus Status: Acute (7) Infective endocarditis: Code(s): 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 Status: Acute Plan This is a 54-year-old female with past medical history significant for lupus nephritis, end-stage renal disease on hemodialysis, failed kidney transplant, anemia of chronic disease. Patient dialyzes 3 times a week comes to the emergency room due to episode of fever, patient denies any cough, nausea, vomiting, has been in her usual state of health up until this point. Preliminary workup in emergency room was significant for hemoglobin of 6.3, a urinalysis was significant for numerous WBCs present. Fever, possible resulting from UTI, infective endocarditis and bacteremia Patient tested negative for COVID RSV and flu. Chest x-ray with no acute cardiopulmonary disease. UA positive for UTI EKG did not show any acute ST-T changes. 2x Blood culture grow Enterococcus faecalis. Urinalysis does note evidence of UTI. Urine culture grows Enterococcus echo report: 1. Complete two-dimensional, color flow and Doppler transthoracic echocardiogram is performed. 2. Left ventricular chamber dimension is normal. 3. Left ventricular systolic function is normal, estimated at 65-70%. 4. There is moderate concentric increased left ventricular wall thickness. 5. The left ventricular diastolic function is grade I diastolic dysfunction. 6. E/e' 20 is elevated. 7. Global longitudinal strain is normal at -19.2%. 8. There is trace aortic valve regurgitation. 9. There is mild mitral valve regurgitation. 10. Small mobile echogenic mass measuring 0.5 cm attached to anterior mitral valve leaflet suggestive of vegetation. 11. There is mild tricuspid valve regurgitation. 12. No pulmonary hypertension, estimated pulmonary arterial systolic pressure is 32 mmHg. 13. There is trace pulmonic regurgitation. repeat BCX on 11/14 no growth so far Infective endocarditis and bacteremia Patient on levofloxacin and vancomycin. Discontinue Levaquin, continue vancomycin Dosing per pharmacist Repeat blood culture 11/09 and are positive of enterococcus TTE: Small mobile echogenic mass measuring 0.5 cm attached to anterior mitral valve leaflet suggestive of vegetation. 11/14The 3rd set for blood culture has no growth so far Changed to daptomycin IV after discussed with ID pharmacist 11/15 continue daptomycin iv (The [place] [employer] (AHA) guidelines recommend that antimicrobial therapy for infective endocarditis should be continued for a prolonged course, typically 4 to 6 weeks, after blood cultures have turned negative) Severe anemia Denies any active bleeding no blood in stool or urine. She is status post complete hysterectomy. Last colonoscopy in July 2024 was unremarkable. She has been feeling generally weak and also short of breath. She has been having intermittent fever for several weeks now. On arrival to the ED see was borderline febrile with a temperature of 37.9?. Ot herwise vitals were stable except for elevated blood pressure. Laboratory studies showed CBC with hemoglobin of 6.3. received 2 units of packed red blood cell transfusion overnight. Her post transfusion hemoglobin is 8.9. and remains stable. occult blood stool negative. Possible due to end-stage renal disease consult dashboard developer for evaluation treatment End-stage renal disease, hypokalemia Chem panel was unremarkable except for underlying CKD and low potassium of 2.7. Management per dashboard developer UTI see above History of lupus nephritis status post kidney transplant failed and back on dialysis again Colon polyps Diarrhea intermittent reported. Will get stool studies History of DVT in 2012 Migraine Hypertension DVT prophylaxis SCDs Code status full code Called [facility] and discussed with cardiac service surgeon, plans to transfer the patient to [facility] she is now on the waiting list to be transferred to [facility] Subjective Date/time seen: 11/18/24 08:56 Interval history: I saw and examined patient today. Patient feels comfortable, denies chest pain, fever, chills, and pain, chest pain, palpitation. Patient is afebrile blood pressure stable, CBC shows normal white blood cell, hemoglobin 8.9 on the baseline Exam Narrative: GENERAL: Pleasant, in no acute distress. Well-nourished. - EYES: EOMI. Anicteric. - HENT: Moist mucous membranes. - LUNGS: Clear to auscultation bilateral ly, no wheezing, rhonchi, or rales. - CARDIOVASCULAR: Regular rate and rhyth m. No murmur. No JVD. - ABDOMEN: Soft, non-tender and non-dist ended. No palpable masses. - EXTREMITIES: No edema. Peripheral puls es 2+. Non-tender. - NEUROLOGIC: No focal neurological defi cits. CN II-XII grossly intact. - PSYCHIATRIC: Awake, Alert and oriented x 3. Appropriate mood and affect. General weakness - SKIN: No rashes or lesions. Warm. - LYMPH: No cervical lymphadenopathy. Objective Data Vital Signs Vital Signs: Vital Signs - 24 hr 11/17/24 14:00 11/17/24 19:42 11/17/24 20:00 Temperature 97.5 F L 97.3 F L Pulse Rate 84 77 Respiratory Rate 18 18 Blood Pressure 132/72 158/85 H Pulse Oximetry 100 100 Oxygen Delivery Room Air 11/17/24 21:10 11/18/24 04:59 11/18/24 06:20 Temperature 98.0 F Pulse Rate 77 71 Respiratory Rate 20 Blood Pressure 196/94 H 169/79 H Pulse Oximetry 100 Oxygen Delivery 11/18/24 06:38 Temperature 98 F Pulse Rate 71 Respiratory Rate 20 Blood Pressure 191/91 H Pulse Oximetry 100 Oxygen Delivery Intake/Output Intake/Output: Intake & Output 11/15/24 11/16/24 11/17/24 11/18/24 23:59 23:59 23:59 23:59 Intake Total 800 1730 2020 510 Output Total 1208 130 200 200 Balance -408 1600 1820 310 Meds/Results Medications: Active Medications Generic Name Dose Route Start Last Admin Trade Name Freq PRN Reason Stop Dose Admin Acetaminophen 650 mg 11/08/24 22:54 11/13/24 07:46 Acetaminophen 325 Mg Tablet PO 650 mg Q4H PRN Administration Mild Pain (1-3) or Fever Carvedilol 25 mg 11/10/24 21:00 11/17/24 21:10 Carvedilol 25 Mg Tablet PO 25 mg Q12HR MARIANO Administration Clonidine HCl 0.1 mg 11/17/24 08:59 11/18/24 05:04 Clonidine Hcl 0.1 Mg Tablet PO 0.1 mg Q6HR PRN Administration systolic bp above 160 Doxazosin Mesylate 8 mg 11/09/24 09:00 11/17/24 09:17 Doxazosin Mesylate 4 Mg Tablet PO 8 mg DAILY MARIANO Administration Epoetin Denzel-epbx 20,000 units 11/18/24 19:00 Epoetin Denzel-Epbx 20,000 Units/Ml Vial IV PUSH 11/18/24 19:01 ONCE ONE Famotidine 10 mg 11/16/24 09:00 11/18/24 00:52 Famotidine 10 Mg Tablet PO Not Given Q12HR MARIANO Furosemide 80 mg 11/09/24 17:00 11/17/24 16:46 Furosemide 80 Mg Tablet PO 80 mg BID MARIANO Administration Albumin Human 50 mls @ 999 mls/hr 11/10/24 10:21 Albutein IVPB 12/10/24 10:20 Q10M PRN HYPOTENSION Daptomycin 700 mg/ Sodium 50 mls @ 100 mls/hr 11/15/24 12:30 11/17/24 09:27 Chloride IVPB 100 mls/hr Q48HR MARIANO Administration Albumin Human 50 mls @ 999 mls/hr 11/17/24 09:01 Albutein IVPB 11/18/24 09:00 Q10M PRN HYPOTENSION Nifedipine 30 mg 11/15/24 11:35 11/17/24 09:18 Nifedipine 30 Mg Tab.Er.24 PO 30 mg QAM MARIANO Administration Ondansetron HCl 4 mg 11/09/24 08:12 Ondansetron Inj 4 Mg/2 Ml Vial IV PUSH Q6H PRN Nausea And Vomiting Prednisone 5 mg 11/13/24 14:20 11/17/24 09:17 Prednisone 5 Mg Tablet PO 5 mg DAILY@0800 MARIANO Administration Tacrolimus 1 mg 11/09/24 10:00 11/17/24 21:10 Tacrolimus 0.5 Mg Capsule BY MOUTH 1 mg Q12HR MARIANO Administration Vitamin D 2,000 units 11/09/24 09:00 11/17/24 09:17 Cholecalciferol 1,000 Units Tablet PO 2,000 units DAILY MARIANO Administration Radiology Results: ITS Impressions Chest X-Ray 11/08/24 15:37 IMPRESSION: No acute cardiopulmonary process. Hip/Pelvis X-Ray 01/10/25 20:28 IMPRESSION: No acute osseous finding in the pelvis or left hip. Abdomen Ultrasound 11/10/24 13:32 IMPRESSION: Prominent atrophy and increased echogenicity of the kidneys, consistent with chronic renal medical disease; no evidence of obstructive uropathy Renal cysts Spleen measures 13 cm length, within upper limits of normal (up to 14 cm) Labs Labs: Laboratory Results - last 24 hr 11/18/24 06:30 WBC 6.8 RBC 3.08 L Hgb 8.9 L Hct 29.4 L MCV 95.5 MCH 28.9 MCHC 30.3 L RDW 17.4 H Plt Count 163 MPV 10.3 Immature Gran % (Auto) 0.4 Neut % (Auto) 72.7 Lymph % (Auto) 17.2 L [place] % (Auto) 9.3 H Eos % (Auto) 0.3 Baso % (Auto) 0.1 L Lymph # (Auto) 1.16 [place] # (Auto) 0.6 Eos # (Auto) 0.0 Baso # (Auto) 0.0 Abs Immat Gran (auto) 0.03 Absolute Neuts (auto) 4.9 Absolute Nucleated RBC 0.000 Nucleated RBC % 0.0 Sodium 134 L Potassium 5.9 H Chloride 108 H Carbon Dioxide 23 Anion Gap 3 L BUN 20 H Creatinine 5.83 H Estim Creat Clear Calc 9 Estimated GFR 9 L Glucose 74 Calcium 8.5 Phosphorus 2.3 L Albumin 2.4 L
[2024-11-18] MEDS: TACROLIMUS 0.5 MG CAPSULE 1 MG BY MOUTH ×2 (09:05→21:02)
[2024-11-18] MEDS: HEPARIN SODIUM 1,000 UNITS/ML VIAL 2000 UNITS (09:39)
[2024-11-18 09:50] LABS: ABN Prot Band 1 155 mg/24 h (NONE DETECTED); Abnormal Band 2 17 mg/24 h (NONE DETECTED); Albumin 24 %
--- NOTE | 2024-11-18 09:54 | PCNWS ---
Weekly nutritional screen. Patient is tolerating current Renal diet with adequate intake at 100% of meals, good appetite. No weight loss reported. No nutritional recommendations at this time.
--- NOTE | 2024-11-18 10:09 | P.PNNP_ITS ---
Progress Note: A&P Assessment and Plan (1) End stage renal disease: Code(s): N18.6 - End stage renal disease Status: Chronic Assessment and Plan: * HD today * continue outpatient M/W/ dialysis schedule * follow electrolytes, volume status, and clearance (2) Infective endocarditis: Code(s): 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 Status: Acute Assessment and Plan: * as noted by Echo (on 11/11): * left ventricular systolic function is normal, estimated at 65-70% * trace aortic valve regurgitation * mild mitral valve regurgitation * small mobile echogenic mass measuring 0.5 cm attached to anterior mitral valve leaflet suggestive of vegetation * mild tricuspid valve regurgitation * on antibiotics * waiting transfer to [facility] for CTS evaluation * however, has bacteremia cleared(?) - see #3 (3) Bacteremia: Code(s): R78.81 - Bacteremia Status: Acute Assessment and Plan: * culture results noted: * blood cultures (from 11/09) - Enterococcus faecalis * urine culture (from 11/08) - Enterococcus faecalis * blood culture (from 11/11) - Enterococcus faecalis * blood cultures (from 11/14) - no growth to date * now complicated by #2 * this issue may have progressed since on immunosuppression medications (to maintain residual kidney function of transplant kidney) * on antibiotics * follow repeat cultures (4) Anemia: Code(s): D64.9 - Anemia, unspecified Status: Acute Assessment and Plan: * severity/recurrence out of proportion to blame ESRD alone * H/H doing better currently * s/p PRBC transfusion * suspect possible resistance to PRESTON/Mircera due to #3 (?) * however, her lupus could be contributing as well * low complements noted -- related to #2 (?) * ELLEN pending; dsDNA-Ab negative * serum and urine immunofixation with IgG kappa monoclonal band * Hem/Onc recommendations noted * Epogen with dialysis * follow trend of H/H (5) UTI (urinary tract infection): Code(s): N39.0 - Urinary tract infection, site not specified Status: Acute Assessment and Plan: * urine culture with Enterococcus (see #3) * on antibiotics (6) Essential (primary) hypertension: Code(s): I10 - Essential (primary) hypertension Status: Chronic Assessment and Plan: * running a bit high * nifedipine recently started (to replace diltiazem) * follow trend of hemodynamics (7) Failed kidney transplant: Code(s): T86.12 - Kidney transplant failure Status: Chronic Assessment and Plan: * s/p renal transplantation in 09/14/2019 * transplant failure in March 2021 * restarted on dialysis at that time * remains on tacrolimus and prednisone to maintain residual transplant kidney function (8) Renal osteodystrophy: Code(s): N25.0 - Renal osteodystrophy Status: Acute Assessment and Plan: * low calcium and low phosphorus along with low potassium * liberalized diet * holding phosphate binders Will continue to follow. L Subjective Date/time seen: 11/18/24 10:09 Interval history: Follow-up for end stage renal disease on hemodialysis. Chart reviewed since last seen -- tolerating dialysis treatment at the time of my visit (seen on HD at 10:00AM); still awaiting a bed at [facility]; no apparent distress voiced; no other issues/events overnight or earlier this morning. Exam 2 Narrative: General: WD/WN female in NAD Heart: normal S1 and S2; no rub Lungs: clear to auscultation Abdomen: soft, nontender, nondistended, positive bowel sounds Extremities: no cyanosis or clubbing; no edema Skin: no rash Objective Data Vital Signs Vital Signs: Vital Signs Temp Pulse Resp BP Pulse Ox O2 Del Method O2 Flow Rate 11/18/24 10:00 67 164/94 H 11/18/24 09:45 65 172/90 H 11/18/24 09:30 66 184/89 H 11/18/24 09:27 66 176/88 H 11/18/24 09:13 98.2 F 68 16 174/89 H 100 11/18/24 09:13 0 11/18/24 06:38 98 F 71 20 191/91 H 100 11/18/24 06:20 169/79 H 11/18/24 04:59 98.0 F 71 20 196/94 H 100 11/17/24 21:10 77 11/17/24 20:00 Room Air 11/17/24 19:42 97.3 F L 77 18 158/85 H 100 11/17/24 14:00 97.5 F L 84 18 132/72 100 Intake/Output Intake/Output: Intake & Output 0111/16/24 11/17/24 11/18/24 23:59 23:59 23:59 23:59 Intake Total 800 1730 2020 510 Output Total 1208 130 200 200 Balance -408 1600 1820 310 Meds/Results Medications: Active Medications Generic Name Dose Route Start Last Admin Trade Name Freq PRN Reason Stop Dose Admin Acetaminophen 650 mg 11/08/24 22:54 11/13/24 07:46 Acetaminophen 325 Mg Tablet PO 650 mg Q4H PRN Administration Mild Pain (1-3) or Fever Carvedilol 25 mg 11/10/24 21:00 11/17/24 21:10 Carvedilol 25 Mg Tablet PO 25 mg Q12HR MARIANO Administration Clonidine HCl 0.1 mg 11/17/24 08:59 11/18/24 05:04 Clonidine Hcl 0.1 Mg Tablet PO 0.1 mg Q6HR PRN Administration systolic bp above 160 Doxazosin Mesylate 8 mg 11/09/24 09:00 11/17/24 09:17 Doxazosin Mesylate 4 Mg Tablet PO 8 mg DAILY MARIANO Administration Famotidine 10 mg 11/16/24 09:00 11/18/24 12:28 Famotidine 10 Mg Tablet PO Not Given Q12HR MARIANO Furosemide 80 mg 11/09/24 17:00 11/18/24 12:28 Furosemide 80 Mg Tablet PO Not Given BID MARIANO Albumin Human 50 mls @ 999 mls/hr 11/10/24 10:21 Albutein IVPB 12/10/24 10:20 Q10M PRN HYPOTENSION Daptomycin 700 mg/ Sodium 50 mls @ 100 mls/hr 11/15/24 12:30 11/17/24 09:27 Chloride IVPB 100 mls/hr Q48HR MARIANO Administration Nifedipine 30 mg 11/15/24 11:35 11/17/24 09:18 Nifedipine 30 Mg Tab.Er.24 PO 30 mg QAM MARIANO Administration Ondansetron HCl 4 mg 11/09/24 08:12 Ondansetron Inj 4 Mg/2 Ml Vial IV PUSH Q6H PRN Nausea And Vomiting Prednisone 5 mg 11/13/24 14:20 11/17/24 09:17 Prednisone 5 Mg Tablet PO 5 mg DAILY@0800 MARIANO Administration Tacrolimus 1 mg 11/09/24 10:00 11/18/24 09:05 Tacrolimus 0.5 Mg Capsule BY MOUTH 1 mg Q12HR MARIANO Administration Vitamin D 2,000 units 11/09/24 09:00 11/17/24 09:17 Cholecalciferol 1,000 Units Tablet PO 2,000 units DAILY MARIANO Administration Radiology Results: ITS Impressions Chest X-Ray 11/08/24 15:37 IMPRESSION: No acute cardiopulmonary process. Hip/Pelvis X-Ray 11/08/24 20:28 IMPRESSION: No acute osseous finding in the pelvis or left hip. Abdomen Ultrasound 11/10/24 13:32 IMPRESSION: Prominent atrophy and increased echogenicity of the kidneys, consistent with chronic renal medical disease; no evidence of obstructive uropathy Renal cysts Spleen measures 13 cm length, within upper limits of normal (up to 14 cm) Labs Labs: Laboratory Tests 11/18/24 06:30 11/18/24 06:30 Calcium 8.5 Phosphorus 2.3 L Albumin 2.4 L
[2024-11-18] MEDS: EPOETIN ALFA-EPBX 20,000 UNITS/ML VIAL 20000 UNITS IV PUSH (12:36)
[2024-11-18] MEDS: DOXAZOSIN MESYLATE 4 MG TABLET 8 MG PO (13:55)
[2024-11-18] MEDS: carvediloL 25 MG TABLET PO ×2 (13:56→21:02)
[2024-11-18] MEDS: CHOLECALCIFEROL 1,000 UNITS TABLET 2000 UNITS PO (13:56)
[2024-11-18] MEDS: NIFEdipine 30 MG TAB.ER.24 PO (13:56)
[2024-11-18] MEDS: predniSONE 5 MG TABLET PO (13:56)
[2024-11-18 14:39] LABS: Renin 0.75 ng/mL/h (0.25-5.82)
[2024-11-19 04:05] VITALS: BP 150/79; PULSE 70; RESP 16; TEMP 36.5; O2SAT 100
[2024-11-19 06:21] LABS: Basophils Percent Auto 0.5 % (0.2-1.2); Eosinophils Percent Auto 0.2 % (0-4.4); Hematocrit 31.5 % (37.0-47.0); Hemoglobin 9.7 g/dL (12.0-15.0); Immature Granulocyte Absolute 0.02 K/mm3 (0.00-0.031); Immature Granulocyte Percent A 0.4 % (0-0.5); Lymphocytes Absolute Auto 0.96 K/mm3 (0.9-3.2); Lymphocytes Percent Auto 16.8 % (18.3-44.2); Mean Corpuscular HGB Conc 30.8 g/dl (32-36); Mean Corpuscular Hemoglobin 29.3 pg (26-34); Mean Corpuscular Volume 95.2 fl (80-100); Mean Platelet Volume 9.6 fl (7.4-10.4); Monocytes Absolute Auto 0.5 K/mm3 (0.1-0.6); Monocytes Percent Auto 8.8 % (2.6-8.5); Neutrophils Absolute Auto 4.2 K/mm3 (1.3-6.7); Neutrophils Percent Auto 73.3 % (45.5-73.1); Platelet Count Result 158 k/mm3 (150-375); Red Blood Count 3.31 M/mm3 (4.2-5.4); Red Cell Distribution Width 17.5 % (11.5-14.5); White Blood Count 5.7 K/mm3 (4.5-10.0)
[2024-11-19 06:46] LABS: Albumin Level 2.7 g/dL (3.5-5.1); Anion Gap 1 mmol/L (4-12); Blood Urea Nitrogen 11 mg/dL (7-17); Calcium 8.1 mg/dL (8.4-10.2); Carbon Dioxide 30 mmol/L (22-30); Chloride 103 mmol/L (98-107); Estimated CRCL calculation 14 ml/min; Estimated Glomerular Filt Rate 16; Glucose 82 mg/dL (65-110); Phosphorus 2.3 mg/dL (2.5-4.5); Potassium 5.4 mmol/L (3.4-5.0); Sodium 134 mmol/L (137-145)
[2024-11-19] MEDS: TACROLIMUS 0.5 MG CAPSULE 1 MG BY MOUTH ×2 (09:07→21:33)
--- NOTE | 2024-11-19 09:07 | PM.IMPN ---
Progress Note: A&P Assessment and Plan (1) UTI (urinary tract infection): Code(s): N39.0 - Urinary tract infection, site not specified Status: Acute (2) Anemia in chronic kidney disease: Code(s): N18.9 - Chronic kidney disease, unspecified; D63.1 - Anemia in chronic kidney disease Status: Acute (3) Essential (primary) hypertension: Code(s): I10 - Essential (primary) hypertension Status: Chronic (4) Dialysis patient: Code(s): Z99.2 - Dependence on renal dialysis Status: Acute (5) Immunosuppression: Code(s): D89.9 - Disorder involving the immune mechanism, unspecified Status: Acute (6) Chronic lupus nephritis: Code(s): M32.14 - Glomerular disease in systemic lupus erythematosus Status: Acute (7) Infective endocarditis: Code(s): 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 Status: Acute Plan This is a 54-year-old female with past medical history significant for lupus nephritis, end-stage renal disease on hemodialysis, failed kidney transplant, anemia of chronic disease. Patient dialyzes 3 times a week comes to the emergency room due to episode of fever, patient denies any cough, nausea, vomiting, has been in her usual state of health up until this point. Preliminary workup in emergency room was significant for hemoglobin of 6.3, a urinalysis was significant for numerous WBCs present. Fever, possible resulting from UTI, infective endocarditis and bacteremia Patient tested negative for COVID RSV and flu. Chest x-ray with no acute cardiopulmonary disease. UA positive for UTI EKG did not show any acute ST-T changes. 2x Blood culture grow Enterococcus faecalis. Urinalysis does note evidence of UTI. Urine culture grows Enterococcus echo report: 1. Complete two-dimensional, color flow and Doppler transthoracic echocardiogram is performed. 2. Left ventricular chamber dimension is normal. 3. Left ventricular systolic function is normal, estimated at 65-70%. 4. There is moderate concentric increased left ventricular wall thickness. 5. The left ventricular diastolic function is grade I diastolic dysfunction. 6. E/e' 20 is elevated. 7. Global longitudinal strain is normal at -19.2%. 8. There is trace aortic valve regurgitation. 9. There is mild mitral valve regurgitation. 10. Small mobile echogenic mass measuring 0.5 cm attached to anterior mitral valve leaflet suggestive of vegetation. 11. There is mild tricuspid valve regurgitation. 12. No pulmonary hypertension, estimated pulmonary arterial systolic pressure is 32 mmHg. 13. There is trace pulmonic regurgitation. repeat BCX on 11/14 no growth so far Infective endocarditis and bacteremia Patient on levofloxacin and vancomycin. Discontinue Levaquin, continue vancomycin Dosing per pharmacist Repeat blood culture 11/09 and are positive of enterococcus TTE: Small mobile echogenic mass measuring 0.5 cm attached to anterior mitral valve leaflet suggestive of vegetation. 11/14The 3rd set for blood culture has no growth so far Changed to daptomycin IV after discussed with ID pharmacist 11/15 continue daptomycin iv (The [place] [employer] (AHA) guidelines recommend that antimicrobial therapy for infective endocarditis should be continued for a prolonged course, typically 4 to 6 weeks, after blood cultures have turned negative) Severe anemia Denies any active bleeding no blood in stool or urine. She is status post complete hysterectomy. Last colonoscopy in July 2024 was unremarkable. She has been feeling generally weak and also short of breath. She has been having intermittent fever for several weeks now. On arrival to the ED see was borderline febrile with a temperature of 37.9?. Otherwise vitals were stable except for elevated blood pressure. Laboratory studies showed CBC with hemoglobin of 6.3. received 2 units of packed red blood cell transfusion overnight. Her post transfusion hemoglobin is 8.9. and remains stable. occult blood stool negative. Possible due to end-stage renal disease consult project management director for evaluation treatment End-stage renal disease, hypokalemia Chem panel was unremarkable except for underlying CKD and low potassium of 2.7. Management per project management director UTI see above History of lupus nephritis status post kidney transplant failed and back on dialysis again Colon polyps Diarrhea intermittent reported. Will get stool studies History of DVT in 2012 Migraine Hypertension DVT prophylaxis SCDs Code status full code Called [facility] and discussed with cardiac service surgeon, plans to transfer the patient to [facility] she is now on the waiting list to be transferred to [facility] Subjective Date/time seen: 11/19/24 09:07 Interval history: I saw and examined patient today. Patient has no complaints, feels comfortable, denies chest pain, fever, chills, and pain, chest pain, palpitation. Patient is afebrile blood pressure stable, CBC chemistry are reviewed Exam Narrative: GENERAL: Pleasant, in no acute distress. Well-nourished. - EYES: EOMI. Anicteric. - HENT: Moist mucous membranes. - LUNGS: Clear to auscultation bilaterally, no wheezing, rhonchi, or rales. - CARDIOVASCULAR: Regular rate and rhythm. No murmur. No JVD. - ABDOMEN: Soft, non-tender and non-distended. No palpable masses. - EXTREMITIES: No edema. Peripheral pulses 2+. Non-tender. - NEUROLOGIC: No focal neurological deficits. CN II-XII grossly intact. - PSYCHIATRIC: Awake, Alert and oriented x 3. Appropriate mood and affect. General weakness - SKIN: No rashes or lesions. Warm. - LYMPH: No cervical lymphadenopathy. Objective Data Vital Signs Vital Signs: Vital Signs - 24 hr 11/18/24 09:13 11/18/24 09:13 11/18/24 09:27 Temperature 98.2 F Pulse Rate 68 66 Respiratory Rate 16 Blood Pressure 174/89 H 176/88 H Pulse Oximetry 100 Oxygen Delivery Oxygen Flow Rate 0 Fraction of Inspired Oxygen 0 11/18/24 09:30 11/18/24 09:45 11/18/24 10:00 Temperature Pulse Rate 66 65 67 Respiratory Rate Blood Pressure 184/89 H 172/90 H 164/94 H Pulse Oximetry Oxygen Delivery Oxygen Flow Rate Fraction of Inspired Oxygen 11/18/24 10:15 11/18/24 10:30 11/18/24 10:45 Temperature Pulse Rate 66 66 61 Respiratory Rate Blood Pressure 184/90 H 171/84 H 188/81 H Pulse Oximetry Oxygen Delivery Oxygen Flow Rate Fraction of Inspired Oxygen 11/18/24 11:15 11/18/24 11:30 11/18/24 11:45 Temperature Pulse Rate 60 61 63 Respiratory Rate Blood Pressure 171/83 H 171/81 H 184/85 H Pulse Oximetry Oxygen Delivery Oxygen Flow Rate Fraction of Inspired Oxygen 11/18/24 12:00 11/18/24 12:15 11/18/24 12:30 Temperature Pulse Rate 72 71 70 Respiratory Rate Blood Pressure 156/90 H 166/84 H 158/89 H Pulse Oximetry Oxygen Delivery Oxygen Flow Rate Fraction of Inspired Oxygen 11/18/24 12:45 11/18/24 13:01 11/18/24 13:04 Temperature 98.1 F Pulse Rate 70 71 67 Respiratory Rate 15 Blood Pressure 181/84 H 155/86 H 188/83 H Pulse Oximetry 100 Oxygen Delivery Oxygen Flow Rate Fraction of Inspired Oxygen 11/18/24 14:00 11/18/24 20:00 11/18/24 20:15 Temperature 97.9 F 98.4 F Pulse Rate 82 82 82 Respiratory Rate 18 18 16 Blood Pressure 163/80 H 148/78 H Pulse Oximetry 100 100 100 Oxygen Delivery Room Air Oxygen Flow Rate Fraction of Inspired Oxygen 0 11/19/24 04:05 Temperature 97.7 F Pulse Rate 70 Respiratory Rate 16 Blood Pressure 150/79 H Pulse Oximetry 100 Oxygen Delivery Oxygen Flow Rate Fraction of Inspired Oxygen Intake/Output Intake/Output: Intake & Output 11/16/24 11/17/24 11/18/24 11/19/24 23:59 23:59 23:59 23:59 Intake Total 1730 2020 1750 200 Output Total 416 571 8527 100 Balance 1600 1820 50 100 Meds/Results Medications: Active Medications Generic Name Dose Route Start Last Admin Trade Name Freq PRN Reason Stop Dose Admin Acetaminophen 650 mg 11/08/24 22:54 11/13/24 07:46 Acetaminophen 325 Mg Tablet PO 650 mg Q4H PRN Administration Mild Pain (1-3) or Fever Carvedilol 25 mg 11/10/24 21:00 11/18/24 21:02 Carvedilol 25 Mg Tablet PO 25 mg Q12HR MARIANO Administration Clonidine HCl 0.1 mg 11/17/24 08:59 11/18/24 05:04 Clonidine Hcl 0.1 Mg Tablet PO 0.1 mg Q6HR PRN Administration systolic bp above 160 Doxazosin Mesylate 8 mg 11/09/24 09:00 11/18/24 13:55 Doxazosin Mesylate 4 Mg Tablet PO 8 mg DAILY MARIANO Administration Famotidine 10 mg 11/16/24 09:00 11/18/24 21:03 Famotidine 10 Mg Tablet PO Not Given Q12HR MARIANO Furosemide 80 mg 11/09/24 17:00 11/18/24 15:13 Furosemide 80 Mg Tablet PO Not Given BID MARIANO Albumin Human 50 mls @ 999 mls/hr 11/10/24 10:21 Albutein IVPB 12/10/24 10:20 Q10M PRN HYPOTENSION Daptomycin 700 mg/ Sodium 50 mls @ 100 mls/hr 11/15/24 12:30 11/17/24 09:27 Chloride IVPB 12/25/24 09:29 100 mls/hr Q48HR MARIANO Administration Nifedipine 30 mg 11/15/24 11:35 11/18/24 13:56 Nifedipine 30 Mg Tab.Er.24 PO 30 mg QAM MARIANO Administration Ondansetron HCl 4 mg 11/09/24 08:12 Ondansetron Inj 4 Mg/2 Ml Vial IV PUSH Q6H PRN Nausea And Vomiting Prednisone 5 mg 11/13/24 14:20 11/18/24 13:56 Prednisone 5 Mg Tablet PO 5 mg DAILY@0800 MARIANO Administration Tacrolimus 1 mg 11/09/24 10:00 11/18/24 21:02 Tacrolimus 0.5 Mg Capsule BY MOUTH 1 mg Q12HR MARIANO Administration Vitamin D 2,000 units 11/09/24 09:00 11/18/24 13:56 Cholecalciferol 1,000 Units Tablet PO 2,000 units DAILY MARIANO Administration Radiology Results: ITS Impressions Chest X-Ray 11/08/24 15:37 IMPRESSION: No acute cardiopulmonary process. Hip/Pelvis X-Ray 11/08/24 20:28 IMPRESSION: No acute osseous finding in the pelvis or left hip. Abdomen Ultrasound 11/10/24 13:32 IMPRESSION: Prominent atrophy and increased echogenicity of the kidneys, consistent with chronic renal medical disease; no evidence of obstructive uropathy Renal cysts Spleen measures 13 cm length, within upper limits of normal (up to 14 cm) Labs Labs: Laboratory Results - last 24 hr 11/10/24 11/19/24 11:22 06:07 WBC 5.7 RBC 3.31 L Hgb 9.7 L Hct 31.5 L MCV 95.2 MCH 29.3 MCHC 30.8 L RDW 17.5 H Plt Count 158 MPV 9.6 Immature Gran % (Auto) 0.4 Neut % (Auto) 73.3 H Lymph % (Auto) 16.8 L [place] % (Auto) 8.8 H Eos % (Auto) 0.2 Baso % (Auto) 0.5 Lymph # (Auto) 0.96 [place] # (Auto) 0.5 Eos # (Auto) 0.0 Baso # (Auto) 0.0 Abs Immat Gran (auto) 0.02 Absolute Neuts (auto) 4.2 Absolute Nucleated RBC 0.000 Nucleated RBC % 0.0 Sodium 134 L Potassium 5.4 H Chloride 103 Carbon Dioxide 30 Anion Gap 1 L BUN 11 D Creatinine 3.54 H Estim Creat Clear Calc 14 Estimated GFR 16 L Glucose 82 Calcium 8.1 L Phosphorus 2.3 L Albumin 2.7 L Renin 0.75 Aldosterone <5 ELLEN Screen Negative
[2024-11-19 09:08] VITALS: PULSE 73
[2024-11-19] MEDS: predniSONE 5 MG TABLET PO (09:08)
[2024-11-19] MEDS: carvediloL 25 MG TABLET PO ×2 (09:08→21:33)
[2024-11-19] MEDS: FUROSEMIDE 80 MG TABLET PO ×2 (09:08→21:33)
[2024-11-19] MEDS: NIFEdipine 30 MG TAB.ER.24 PO (09:08)
[2024-11-19] MEDS: CHOLECALCIFEROL 1,000 UNITS TABLET 2000 UNITS PO (09:08)
[2024-11-19] MEDS: DOXAZOSIN MESYLATE 4 MG TABLET 8 MG PO (09:08)
--- NOTE | 2024-11-19 11:08 | P.PNNP_ITS ---
Progress Note: A&P Assessment and Plan (1) End stage renal disease: Code(s): N18.6 - End stage renal disease Status: Chronic Assessment and Plan: * HD tomorrow * continue outpatient M/W/F dialysis schedule * follow electrolytes, volume status, and clearance (2) Infective endocarditis: Code(s): 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 Status: Acute Assessment and Plan: * as noted by Echo (on 11/11): * left ventricular systolic function is normal, estimated at 65-70% * trace aortic valve regurgitation * mild mitral valve regurgitation * small mobile echogenic mass measuring 0.5 cm attached to anterior mitral valve leaflet suggestive of vegetation * mild tricuspid valve regurgitation * on antibiotics * waiting transfer to [facility] for CTS evaluation * however, has bacteremia cleared(?) - see #3; if so, transfer to [facility] needed? (3) Bacteremia: Code(s): R78.81 - Bacteremia Status: Acute Assessment and Plan: * culture results noted: * blood cultures (from 11/09) - Enterococcus faecalis * urine culture (from 11/08) - Enterococcus faecalis * blood culture (from 11/11) - Enterococcus faecalis * blood cultures (from 11/14) - no growth to date * now complicated by #2 * this issue may have progressed since on immunosuppression medications (to maintain residual kidney function of transplant kidney) * on antibiotics * follow repeat cultures (4) Anemia: Code(s): D64.9 - Anemia, unspecified Status: Acute Assessment and Plan: * severity/recurrence out of proportion to blame ESRD alone * H/H doing better currently * s/p PRBC transfusion * suspect possible resistance to PRESTON/Mircera due to #3 (?) * however, her lupus could be contributing as well * low complements noted -- related to #2 (?) * ELLEN pending; dsDNA-Ab negative * serum and urine immunofixation with IgG kappa monoclonal band * Hem/Onc recommendations noted * Epogen with dialysis * follow trend of H/H (5) UTI (urinary tract infection): Code(s): N39.0 - Urinary tract infection, site not specified Status: Acute Assessment and Plan: * urine culture with Enterococcus (see #3) * on antibiotics (6) Essential (primary) hypertension: Code(s): I10 - Essential (primary) hypertension Status: Chronic Assessment and Plan: * running a bit high * nifedipine recently started (to replace diltiazem) * follow trend of hemodynamics (7) Failed kidney transplant: Code(s): T86.12 - Kidney transplant failure Status: Chronic Assessment and Plan: * s/p renal transplantation in 09/14/2019 * transplant failure in March 2021 * restarted on dialysis at that time * remains on tacrolimus and prednisone to maintain residual transplant kidney function (8) Renal osteodystrophy: Code(s): N25.0 - Renal osteodystrophy Status: Acute Assessment and Plan: * low calcium and low phosphorus along with low potassium * liberalized diet * holding phosphate binders Will continue to follow. L Subjective Date/time seen: 11/19/24 11:08 Interval history: Follow-up for end stage renal disease on hemodialysis. Tolerated dialysis treatment yesterday without any issues or problems; overall, feels reasonably well and denies any acute problems; no apparent distress noted; no other events overnight or earlier this morning; no other complaints voiced. Exam 2 Narrative: General: WD/WN female in NAD Heart: normal S1 and S2; no rub Lungs: clear to auscultation Abdomen: soft, nontender, nondistended, positive bowel sounds Extremities: no cyanosis or clubbing; no edema Skin: no nodules Objective Data Vital Signs Vital Signs: Vital Signs Temp Pulse Resp BP Pulse Ox O2 Del Method FiO2 11/19/24 09:08 73 11/19/24 08:00 Room Air 11/19/24 04:05 97.7 F 70 16 150/79 H 100 11/18/24 20:15 98.4 F 82 16 148/78 H 100 11/18/24 20:00 82 18 100 Room Air 0 11/18/24 14:00 97.9 F 82 18 163/80 H 100 Intake/Output Intake/Output: Intake & Output 11/16/24 11/17/24 11/18/24 11/19/24 23:59 23:59 23:59 23:59 Intake Total 1730 2070 1750 318 Output Total 563 911 5229 100 Balance 1600 1870 50 218 Meds/Results Medications: Active Medications Generic Name Dose Route Start Last Admin Trade Name Freq PRN Reason Stop Dose Admin Acetaminophen 650 mg 11/08/24 22:54 11/13/24 07:46 Acetaminophen 325 Mg Tablet PO 650 mg Q4H PRN Administration Mild Pain (1-3) or Fever Carvedilol 25 mg 11/10/24 21:00 11/19/24 09:08 Carvedilol 25 Mg Tablet PO 25 mg Q12HR MARIANO Administration Clonidine HCl 0.1 mg 11/17/24 08:59 11/18/24 05:04 Clonidine Hcl 0.1 Mg Tablet PO 0.1 mg Q6HR PRN Administration systolic bp above 160 Doxazosin Mesylate 8 mg 11/09/24 09:00 11/19/24 09:08 Doxazosin Mesylate 4 Mg Tablet PO 8 mg DAILY MARIANO Administration Famotidine 10 mg 11/16/24 09:00 11/19/24 09:09 Famotidine 10 Mg Tablet PO Not Given Q12HR MARIANO Furosemide 80 mg 11/09/24 17:00 11/19/24 09:08 Furosemide 80 Mg Tablet PO 80 mg BID MARIANO Administration Albumin Human 50 mls @ 999 mls/hr 11/10/24 10:21 Albutein IVPB 12/10/24 10:20 Q10M PRN HYPOTENSION Daptomycin 700 mg/ Sodium 50 mls @ 100 mls/hr 11/15/24 12:30 11/17/24 09:57 Chloride IVPB 12/25/24 09:29 Infused Q48HR MARIANO Infusion Nifedipine 30 mg 11/15/24 11:35 11/19/24 09:08 Nifedipine 30 Mg Tab.Er.24 PO 30 mg QAM MARIANO Administration Ondansetron HCl 4 mg 11/09/24 08:12 Ondansetron Inj 4 Mg/2 Ml Vial IV PUSH Q6H PRN Nausea And Vomiting Prednisone 5 mg 11/13/24 14:20 11/19/24 09:08 Prednisone 5 Mg Tablet PO 5 mg DAILY@0800 MAIRANO Administration Tacrolimus 1 mg 11/09/24 10:00 11/19/24 09:07 Tacrolimus 0.5 Mg Capsule BY MOUTH 1 mg Q12HR MARIANO Administration Vitamin D 2,000 units 11/09/24 09:00 11/19/24 09:08 Cholecalciferol 1,000 Units Tablet PO 2,000 units DAILY MARIANO Administration Radiology Results: ITS Impressions Chest X-Ray 11/08/24 15:37 IMPRESSION: No acute cardiopulmonary process. Hip/Pelvis X-Ray 11/08/24 20:28 IMPRESSION: No acute osseous finding in the pelvis or left hip. Abdomen Ultrasound 11/10/24 13:32 IMPRESSION: Prominent atrophy and increased echogenicity of the kidneys, consistent with chronic renal medical disease; no evidence of obstructive uropathy Renal cysts Spleen measures 13 cm length, within upper limits of normal (up to 14 cm) Labs Labs: Laboratory Tests 11/19/24 06:07 11/19/24 06:07 Calcium 8.1 L Phosphorus 2.3 L Albumin 2.7 L
--- NOTE | 2024-11-19 11:08 | PM.PNNEP ---
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 Status: Acute Assessment and Plan: as noted by Echo (on 11/11): left ventricular systolic function is normal, estimated at 65-70% trace aortic valve regurgitation mild mitral valve regurgitation small mobile echogenic mass measuring 0.5 cm attached to anterior mitral valve leaflet suggestive of vegetation mild tricuspid valve regurgitation on antibiotics waiting transfer to [facility] for CTS evaluation however, has bacteremia cleared(?) - see #3; if so, transfer to [facility] needed? (3) Bacteremia: Code(s): R78.81 - Bacteremia Status: Acute Assessment and Plan: culture results noted: blood cultures (from 11/09) - Enterococcus faecalis urine culture (from 11/08) - Enterococcus faecalis blood culture (from 11/11) - Enterococcus faecalis blood cultures (from 11/14) - no growth to date now complicated by #2 this issue may have progressed since on immunosuppression medications (to maintain residual kidney function of transplant kidney) on antibiotics follow repeat cultures (4) Anemia: Code(s): D64.9 - Anemia, unspecified Status: Acute Assessment and Plan: severity/recurrence out of proportion to blame ESRD alone H/H doing better currently s/p PRBC transfusion suspect possible resistance to PRESTON/Mircera due to #3 (?) however, her lupus could be contributing as well low complements noted -- related to #2 (?) ELLEN pending; dsDNA-Ab negative serum and urine immunofixation with IgG kappa monoclonal band Hem/Onc recommendations noted Epogen with dialysis follow trend of H/H (5) UTI (urinary tract infection): Code(s): N39.0 - Urinary tract infection, site not specified Status: Acute Assessment and Plan: urine culture with Enterococcus (see #3) on antibiotics (6) Essential (primary) hypertension: Code(s): I10 - Essential (primary) hypertension Status: Chronic Assessment and Plan: running a bit high nifedipine recently started (to replace diltiazem) follow trend of hemodynamics (7) Failed kidney transplant: Code(s): T86.12 - Kidney transplant failure Status: Chronic Assessment and Plan: s/p renal transplantation in 09/14/2019 transplant failure in March 2021 restarted on dialysis at that time remains on tacrolimus and prednisone to maintain residual transplant kidney function (8) Renal osteodystrophy: Code(s): N25.0 - Renal osteodystrophy Status: Acute Assessment and Plan: low calcium and low phosphorus along with low potassium liberalized diet holding phosphate binders Will continue to follow. Subjective Date/time seen: 11/19/24 11:08 Interval history: Follow-up for end stage renal disease on hemodialysis. Tolerated dialysis treatment yesterday without any issues or problems; overall, feels reasonably well and denies any acute problems; no apparent distress noted; no other events overnight or earlier this morning; no other complaints voiced. Exam Narrative: General: WD/WN female in NAD Heart: normal S1 and S2; no rub Lungs: clear to auscultation Abdomen: soft, nontender, nondistended, positive bowel sounds Extremities: no cyanosis or clubbing; no edema Skin: no nodules Objective Data Vital Signs Vital Signs: Vital Signs Temp Pulse Resp BP Pulse Ox O2 Del Method FiO2 11/19/24 09:08 73 11/19/24 08:00 Room Air 11/19/24 04:05 97.7 F 70 16 150/79 H 100 11/18/24 20:15 98.4 F 82 16 148/78 H 100 11/18/24 20:00 82 18 100 Room Air 0 11/18/24 14:00 97.9 F 82 18 163/80 H 100 Intake/Output Intake/Output: Intake & Output 11/16/24 11/17/24 11/18/24 11/19/24 23:59 23:59 23:59 23:59 Intake Total 1730 2070 1750 318 Output Total 060 537 8619 100 Balance 1600 1870 50 218 Meds/Results Medications: Active Medications Generic Name Dose Route Start Last Admin Trade Name Freq PRN Reason Stop Dose Admin Acetaminophen 650 mg 11/08/24 22:54 11/13/24 07:46 Acetaminophen 325 Mg Tablet PO 650 mg Q4H PRN Administration Mild Pain (1-3) or Fever Carvedilol 25 mg 11/10/24 21:00 11/19/24 09:08 Carvedilol 25 Mg Tablet PO 25 mg Q12HR MARIANO Administration Clonidine HCl 0.1 mg 11/17/24 08:59 11/18/24 05:04 Clonidine Hcl 0.1 Mg Tablet PO 0.1 mg Q6HR PRN Administration systolic bp above 160 Doxazosin Mesylate 8 mg 11/09/24 09:00 11/19/24 09:08 Doxazosin Mesylate 4 Mg Tablet PO 8 mg DAILY MARIANO Administration Famotidine 10 mg 11/16/24 09:00 11/19/24 09:09 Famotidine 10 Mg Tablet PO Not Given Q12HR MARIANO Furosemide 80 mg 11/09/24 17:00 11/19/24 09:08 Furosemide 80 Mg Tablet PO 80 mg BID MARIANO Administration Albumin Human 50 mls @ 999 mls/hr 11/10/24 10:21 Albutein IVPB 12/10/24 10:20 Q10M PRN HYPOTENSION Daptomycin 700 mg/ Sodium 50 mls @ 100 mls/hr 11/15/24 12:30 11/17/24 09:57 Chloride IVPB 12/25/24 09:29 Infused Q48HR MARIANO Infusion Nifedipine 30 mg 11/15/24 11:35 11/19/24 09:08 Nifedipine 30 Mg Tab.Er.24 PO 30 mg QAM MARIANO Administration Ondansetron HCl 4 mg 11/09/24 08:12 Ondansetron Inj 4 Mg/2 Ml Vial IV PUSH Q6H PRN Nausea And Vomiting Prednisone 5 mg 11/13/24 14:20 11/19/24 09:08 Prednisone 5 Mg Tablet PO 5 mg DAILY@0800 MARIANO Administration Tacrolimus 1 mg 11/09/24 10:00 11/19/24 09:07 Tacrolimus 0.5 Mg Capsule BY MOUTH 1 mg Q12HR MARIANO Administration Vitamin D 2,000 units 11/09/24 09:00 11/19/24 09:08 Cholecalciferol 1,000 Units Tablet PO 2,000 units DAILY MARIANO Administration Radiology Results: ITS Impressions Chest X-Ray 11/08/24 15:37 IMPRESSION: No acute cardiopulmonary process. Hip/Pelvis X-Ray 11/08/24 20:28 IMPRESSION: No acute osseous finding in the pelvis or left hip. Abdomen Ultrasound 11/10/24 13:32 IMPRESSION: Prominent atrophy and increased echogenicity of the kidneys, consistent with chronic renal medical disease; no evidence of obstructive uropathy Renal cysts Spleen measures 13 cm length, within upper limits of normal (up to 14 cm) Labs Labs: Laboratory Tests 11/19/24 06:07 11/19/24 06:07 Calcium 8.1 L Phosphorus 2.3 L Albumin 2.7 L
[2024-11-19 14:00] VITALS: BP 127/69; PULSE 78; RESP 18; TEMP 36.8; O2SAT 100
[2024-11-19] MEDS: DAPTOmycin 700 MG in SODIUM CHLORIDE 0.9% IV 50 ML 100 MG IVPB (15:05)
[2024-11-19 20:15] VITALS: BP 142/81; PULSE 80; RESP 16; TEMP 36.4; O2SAT 100
[2024-11-19 21:33] VITALS: PULSE 80
[2024-11-20] VITALS (24 sets, daily range): BP systolic 144–199; BP diastolic 69–99; PULSE 55–84; RESP 14–18; TEMP 36.1–37.5; O2SAT 98–100
[2024-11-20] MEDS: cloNIDine HCL 0.1 MG TABLET PO (05:37)
[2024-11-20 06:21] LABS: Basophils Percent Auto 0.2 % (0.2-1.2); Eosinophils Percent Auto 0.4 % (0-4.4); Hematocrit 30.6 % (37.0-47.0); Hemoglobin 9.2 g/dL (12.0-15.0); Immature Granulocyte Absolute 0.02 K/mm3 (0.00-0.031); Immature Granulocyte Percent A 0.4 % (0-0.5); Lymphocytes Absolute Auto 1.12 K/mm3 (0.9-3.2); Mean Corpuscular HGB Conc 30.1 g/dl (32-36); Mean Corpuscular Hemoglobin 28.7 pg (26-34); Mean Corpuscular Volume 95.3 fl (80-100); Mean Platelet Volume 9.9 fl (7.4-10.4); Monocytes Absolute Auto 0.5 K/mm3 (0.1-0.6); Monocytes Percent Auto 9.6 % (2.6-8.5); Neutrophils Absolute Auto 3.4 K/mm3 (1.3-6.7); Neutrophils Percent Auto 67.4 % (45.5-73.1); Platelet Count Result 149 k/mm3 (150-375); Red Blood Count 3.21 M/mm3 (4.2-5.4); Red Cell Distribution Width 17.9 % (11.5-14.5); White Blood Count 5.1 K/mm3 (4.5-10.0)
[2024-11-20 06:37] LABS: Albumin Level 2.6 g/dL (3.5-5.1); Anion Gap 5 mmol/L (4-12); Blood Urea Nitrogen 17 mg/dL (7-17); Calcium 8.5 mg/dL (8.4-10.2); Carbon Dioxide 25 mmol/L (22-30); Chloride 103 mmol/L (98-107); Estimated CRCL calculation 11 ml/min; Estimated Glomerular Filt Rate 12; Glucose 79 mg/dL (65-110); Phosphorus 2.4 mg/dL (2.5-4.5); Potassium 6.1 mmol/L (3.4-5.0); Sodium 133 mmol/L (137-145)
[2024-11-20] MEDS: SODIUM CHLORIDE 0.9% IV 1,000 ML 999 ML IV CONT (07:30)
[2024-11-20] MEDS: HEPARIN SODIUM 1,000 UNITS/ML VIAL 2000 UNITS (08:16)
--- NOTE | 2024-11-20 09:10 | P.PNNP_ITS ---
Progress Note: A&P Assessment and Plan (1) End stage renal disease: Code(s): N18.6 - End stage renal disease Status: Chronic Assessment and Plan: * HD today * continue outpatient M/W/ dialysis schedule * follow electrolytes, volume status, and clearance (2) Infective endocarditis: Code(s): 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 Status: Acute Assessment and Plan: * as noted by Echo (on 11/11): * left ventricular systolic function is normal, estimated at 65-70% * trace aortic valve regurgitation * mild mitral valve regurgitation * small mobile echogenic mass measuring 0.5 cm attached to anterior mitral valve leaflet suggestive of vegetation * mild tricuspid valve regurgitation * on antibiotics * was waiting for transfer to [facility] for CTS evaluation * however, now that has bacteremia cleared - is transfer to [facility] needed? (3) Bacteremia: Code(s): R78.81 - Bacteremia Status: Acute Assessment and Plan: * culture results noted: * blood cultures (from 11/09) - Enterococcus faecalis * urine culture (from 11/08) - Enterococcus faecalis * blood culture (from 11/11) - Enterococcus faecalis * blood cultures (from 11/14) - no growth to date * now complicated by #2 * this issue may have progressed since on immunosuppression medications (to maintain residual kidney function of transplant kidney) * on antibiotics (4) Anemia: Code(s): D64.9 - Anemia, unspecified Status: Acute Assessment and Plan: * severity/recurrence out of proportion to blame ESRD alone * H/H doing better currently * s/p PRBC transfusion * suspect possible resistance to PRESTON/Mircera due to #3 (?) * however, her lupus could be contributing as well * low complements noted -- related to #2 (?) * ELLEN pending; dsDNA-Ab negative * serum and urine immunofixation with IgG kappa monoclonal band * Hem/Onc recommendations noted * Epogen with dialysis * follow trend of H/H (5) UTI (urinary tract infection): Code(s): N39.0 - Urinary tract infection, site not specified Status: Acute Assessment and Plan: * urine culture with Enterococcus (see #3) * on antibiotics (6) Essential (primary) hypertension: Code(s): I10 - Essential (primary) hypertension Status: Chronic Assessment and Plan: * running high in the morning * nifedipine recently started (to replace diltiazem) - will increase dose and give at 0800 * follow trend of hemodynamics (7) Failed kidney transplant: Code(s): T86.12 - Kidney transplant failure Status: Chronic Assessment and Plan: * s/p renal transplantation in 09/14/2019 * transplant failure in March 2021 * restarted on dialysis at that time * remains on tacrolimus and prednisone to maintain residual transplant kidney function (8) Renal osteodystrophy: Code(s): N25.0 - Renal osteodystrophy Status: Acute Assessment and Plan: * low calcium and low phosphorus along with low potassium * liberalized diet but will add K+ restrictions since K+ a bit high now * holding phosphate binders Will continue to follow. L Subjective Date/time seen: 11/20/24 09:10 Interval history: Follow-up for end stage renal disease on hemodialysis. Tolerating dialysis treatment at the time of my visit (seen on HD at 9:00AM); no apparent distress noted -- feels quite well in general; recent blood cultures remain negative with ongoing IV antibiotic therapy (daptomycin); no issues/events overnight or earlier this morning. Exam 2 Narrative: General: WD/WN female in NAD Heart: normal S1 and S2; no rub Lungs: clear to auscultation Abdomen: soft, nontender, nondistended, positive bowel sounds Extremities: no cyanosis or clubbing; no edema Skin: warm and dry Objective Data Vital Signs Vital Signs: Vital Signs Temp Pulse Resp BP Pulse Ox O2 Del Method 11/20/24 09:00 57 L 186/96 H 11/20/24 08:45 55 L 195/97 H 11/20/24 08:30 58 L 190/93 H 11/20/24 08:16 61 174/94 H 11/20/24 08:05 97.3 F L 62 16 182/91 H 98 11/20/24 06:59 197/89 H 11/20/24 05:25 97 F L 71 18 198/99 H 99 11/19/24 21:33 80 11/19/24 20:15 97.6 F 80 16 142/81 H 100 11/19/24 20:00 Room Air 11/19/24 14:00 98.3 F 78 18 127/69 100 Intake/Output Intake/Output: Intake & Output 11/17/24 11/18/24 11/19/24 11/20/24 23:59 23:59 23:59 23:59 Intake Total 2070 1750 2298 890 Output Total 200 1700 100 300 Balance 1870 50 2198 590 Meds/Results Medications: Active Medications Generic Name Dose Route Start Last Admin Trade Name Freq PRN Reason Stop Dose Admin Acetaminophen 650 mg 11/08/24 22:54 11/13/24 07:46 Acetaminophen 325 Mg Tablet PO 650 mg Q4H PRN Administration Mild Pain (1-3) or Fever Carvedilol 25 mg 11/10/24 21:00 11/19/24 21:33 Carvedilol 25 Mg Tablet PO 25 mg Q12HR MARIANO Administration Clonidine HCl 0.1 mg 11/17/24 08:59 11/20/24 05:37 Clonidine Hcl 0.1 Mg Tablet PO 0.1 mg Q6HR PRN Administration systolic bp above 180 Doxazosin Mesylate 8 mg 11/09/24 09:00 11/19/24 09:08 Doxazosin Mesylate 4 Mg Tablet PO 8 mg DAILY MARIANO Administration Epoetin Denzel-epbx 10,000 units 11/20/24 17:45 Epoetin Denzel-Epbx 10,000 Units/Ml Vial IV PUSH 11/20/24 17:46 ONCE ONE Famotidine 10 mg 11/16/24 09:00 11/19/24 21:34 Famotidine 10 Mg Tablet PO Not Given Q12HR MARIANO Furosemide 80 mg 11/19/24 21:00 11/19/24 21:33 Furosemide 80 Mg Tablet PO 80 mg Q12HR MARIANO Administration Albumin Human 50 mls @ 999 mls/hr 11/10/24 10:21 Albutein IVPB 12/10/24 10:20 Q10M PRN HYPOTENSION Daptomycin 700 mg/ Sodium 50 mls @ 100 mls/hr 11/21/24 15:00 11/19/24 15:05 Chloride IVPB 12/27/24 09:29 100 mls/hr Q48HR MARIANO Administration Nifedipine 30 mg 11/15/24 11:35 11/19/24 09:08 Nifedipine 30 Mg Tab.Er.24 PO 30 mg QAM MARIANO Administration Ondansetron HCl 4 mg 11/09/24 08:12 Ondansetron Inj 4 Mg/2 Ml Vial IV PUSH Q6H PRN Nausea And Vomiting Prednisone 5 mg 11/13/24 14:20 11/19/24 09:08 Prednisone 5 Mg Tablet PO 5 mg DAILY@0800 MARIANO Administration Tacrolimus 1 mg 11/09/24 10:00 11/19/24 21:33 Tacrolimus 0.5 Mg Capsule BY MOUTH 1 mg Q12HR MARIANO Administration Vitamin D 2,000 units 11/09/24 09:00 11/19/24 09:08 Cholecalciferol 1,000 Units Tablet PO 2,000 units DAILY MARIANO Administration Radiology Results: ITS Impressions Chest X-Ray 11/08/24 15:37 IMPRESSION: No acute cardiopulmonary process. Hip/Pelvis X-Ray 11/08/24 20:28 IMPRESSION: No acute osseous finding in the pelvis or left hip. Abdomen Ultrasound 11/10/24 13:32 IMPRESSION: Prominent atrophy and increased echogenicity of the kidneys, consistent with chronic renal medical disease; no evidence of obstructive uropathy Renal cysts Spleen measures 13 cm length, within upper limits of normal (up to 14 cm) Labs Labs: Laboratory Tests 11/20/24 05:55 11/20/24 05:55 Calcium 8.5 Phosphorus 2.4 L Albumin 2.6 L Microbiology 11/14/24 15:47 Blood Blood Culture - Final 11/14/24 15:52 Blood Blood Culture - Final
[2024-11-20] MEDS: EPOETIN ALFA-EPBX 10,000 UNITS/ML VIAL 10000 UNITS IV PUSH (09:51)
--- NOTE | 2024-11-20 09:51 | P.PNIM_ITS ---
Progress Note: A&P Assessment and Plan (1) UTI (urinary tract infection): Code(s): N39.0 - Urinary tract infection, site not specified Status: Acute (2) Anemia in chronic kidney disease: Code(s): N18.9 - Chronic kidney disease, unspecified; D63.1 - Anemia in chronic kidney disease Status: Acute (3) Essential (primary) hypertension: Code(s): I10 - Essential (primary) hypertension Status: Chronic (4) Dialysis patient: Code(s): Z99.2 - Dependence on renal dialysis Status: Acute (5) Immunosuppression: Code(s): D89.9 - Disorder involving the immune mechanism, unspecified Status: Acute (6) Chronic lupus nephritis: Code(s): M32.14 - Glomerular disease in systemic lupus erythematosus Status: Acute (7) Infective endocarditis: Code(s): 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 Status: Acute Plan This is a 54-year-old female with past medical history significant for lupus nephritis, end-stage renal disease on hemodialysis, failed kidney transplant, anemia of chronic disease. Patient dialyzes 3 times a week comes to the emergency room due to episode of fever, patient denies any cough, nausea, vomiting, has been in her usual state of health up until this point. Preliminary workup in emergency room was significant for hemoglobin of 6.3, a urinalysis was significant for numerous WBCs present. Fever, possible resulting from UTI, infective endocarditis and bacteremia Patient tested negative for COVID RSV and flu. Chest x-ray with no acute cardiopulmonary disease. UA positive for UTI EKG did not show any acute ST-T changes. 2x Blood culture grow Enterococcus faecalis. Urinalysis does note evidence of UTI. Urine culture grows Enterococcus echo report: 1. Complete two-dimensional, color flow and Doppler transthoracic echocardiogram is performed. 2. Left ventricular chamber dimension is normal. 3. Left ventricular systolic function is normal, estimated at 65-70%. 4. There is moderate concentric increased left ventricular wall thickness. 5. The left ventricular diastolic function is grade I diastolic dysfunction. 6. E/e' 20 is elevated. 7. Global longitudinal strain is normal at -19.2%. 8. There is trace aortic valve regurgitation. 9. There is mild mitral valve regurgitation. 10. Small mobile echogenic mass measuring 0.5 cm attached to anterior mitral valve leaflet suggestive of vegetation. 11. There is mild tricuspid valve regurgitation. 12. No pulmonary hypertension, estimated pulmonary arterial systolic pressure is 32 mmHg. 13. There is trace pulmonic regurgitation. repeat BCX on 11/14 no growth so far Infective endocarditis and bacteremia Patient on levofloxacin and vancomycin. Discontinue Levaquin, continue vancomycin Dosing per pharmacist Repeat blood culture 11/09 and are positive of enterococcus TTE: Small mobile echogenic mass measuring 0.5 cm attached to anterior mitral valve leaflet suggestive of vegetation. 11/14The 3rd set for blood culture has no growth so far Changed to daptomycin IV after discussed with ID pharmacist 11/15 continue daptomycin iv (The [place] [employer] (AHA) guidelines recommend that antimicrobial therapy for infective endocarditis should be continued for a prolonged course, typically 4 to 6 weeks, after blood cultures have turned negative) Consult health technical writer for evaluation and treatment Severe anemia Denies any active bleeding no blood in stool or urine. She is status post complete hysterectomy. Last colonoscopy in July 2024 was unremarkable. She has been feeling generally weak and also short of breath. She has been having intermittent fever for several weeks now. On arrival to the ED see was borderline febrile with a temperature of 37.9?. Otherwise vitals were stable except for elevated blood pressure. Laboratory studies showed CBC with hemoglobin of 6.3. received 2 units of packed red blood cell transfusion overnight. Her post transfusion hemoglobin is 8.9. and remains stable. occult blood stool negative. Possible due to end-stage renal disease consult risk adjustment specialist for evaluation treatment End-stage renal disease, hypokalemia Chem panel was unremarkable except for underlying CKD and low potassium of 2.7. Management per risk adjustment specialist UTI see above History of lupus nephritis status post kidney transplant failed and back on dialysis again Colon polyps Diarrhea intermittent reported. Will get stool studies History of DVT in 2012 Migraine Hypertension DVT prophylaxis SCDs Code status full code Called [facility] and discussed with cardiac service surgeon, plans to transfer the patient to [facility]. now patient has no bacterial growth on the 3rd blood culture. Consult health technical writer for evaluation and management Subjective Date/time seen: 11/20/24 09:51 Interval history: I saw and examined patient today. Patient has no new issue or event over the night Patient has no complaints, feels comfortable, denies chest pain, fever, chills, and pain, chest pain, palpitation. Patient is afebrile blood pressure stable, CBC chemistry are reviewed Exam Narrative: GENERAL: Pleasant, in no acute distress. Well-nourished. - EYES: EOMI. Anicteric. - HENT: Moist mucous membranes. - LUNGS: Clear to auscultation bilateral ly, no wheezing, rhonchi, or rales. - CARDIOVASCULAR: Regular rate and rhyth m. No murmur. No JVD. - ABDOMEN: Soft, non-tender and non-dist ended. No palpable masses. - EXTREMITIES: No edema. Peripheral puls es 2+. Non-tender. - NEUROLOGIC: No focal neurological defi cits. CN II-XII grossly intact. - PSYCHIATRIC: Awake, Alert and oriented x 3. Appropriate mood and affect. General weakness - SKIN: No rashes or lesions. Warm. - LYMPH: No cervical lymphadenopathy. Objective Data Vital Signs Vital Signs: Vital Signs - 24 hr 11/19/24 14:00 11/19/24 20:00 11/19/24 20:15 Temperature 98.3 F 97.6 F Pulse Rate 78 80 Respiratory Rate 18 16 Blood Pressure 127/69 142/81 H Pulse Oximetry 100 100 Oxygen Delivery Room Air 11/19/24 21:33 11/20/24 05:25 11/20/24 06:59 Temperature 97 F L Pulse Rate 80 71 Respiratory Rate 18 Blood Pressure 198/99 H 197/89 H Pulse Oximetry 99 Oxygen Delivery 11/20/24 08:05 11/20/24 08:16 11/20/24 08:30 Temperature 97.3 F L Pulse Rate 62 61 58 L Respiratory Rate 16 Blood Pressure 182/91 H 174/94 H 190/93 H Pulse Oximetry 98 Oxygen Delivery 11/20/24 08:45 11/20/24 09:00 11/20/24 09:15 Temperature Pulse Rate 55 L 57 L 57 L Respiratory Rate Blood Pressure 195/97 H 186/96 H 199/89 H Pulse Oximetry Oxygen Delivery 11/20/24 09:30 11/20/24 09:45 Temperature Pulse Rate 57 L 61 Respiratory Rate Blood Pressure 181/85 H 196/87 H Pulse Oximetry Oxygen Delivery Intake/Output Intake/Output: Intake & Output 11/17/24 11/18/24 11/19/24 11/20/24 23:59 23:59 23:59 23:59 Intake Total 2070 1750 2298 890 Output Total 200 1700 100 300 Balance 1870 50 2198 590 Meds/Results Medications: Active Medications Generic Name Dose Route Start Last Admin Trade Name Freq PRN Reason Stop Dose Admin Acetaminophen 650 mg 11/08/24 22:54 11/13/24 07:46 Acetaminophen 325 Mg Tablet PO 650 mg Q4H PRN Administration Mild Pain (1-3) or Fever Carvedilol 25 mg 11/10/24 21:00 11/19/24 21:33 Carvedilol 25 Mg Tablet PO 25 mg Q12HR MARIANO Administration Clonidine HCl 0.1 mg 11/17/24 08:59 11/20/24 05:37 Clonidine Hcl 0.1 Mg Tablet PO 0.1 mg Q6HR PRN Administration systolic bp above 180 Doxazosin Mesylate 8 mg 11/09/24 09:00 11/19/24 09:08 Doxazosin Mesylate 4 Mg Tablet PO 8 mg DAILY MARIANO Administration Epoetin Denzel-epbx 10,000 units 11/20/24 17:45 Epoetin Denzel-Epbx 10,000 Units/Ml Vial IV PUSH 11/20/24 17:46 ONCE ONE Famotidine 10 mg 11/16/24 09:00 11/19/24 21:34 Famotidine 10 Mg Tablet PO Not Given Q12HR MARIANO Furosemide 80 mg 11/19/24 21:00 11/19/24 21:33 Furosemide 80 Mg Tablet PO 80 mg Q12HR MARIANO Administration Albumin Human 50 mls @ 999 mls/hr 11/10/24 10:21 Albutein IVPB 12/10/24 10:20 Q10M PRN HYPOTENSION Daptomycin 700 mg/ Sodium 50 mls @ 100 mls/hr 11/21/24 15:00 11/19/24 15:05 Chloride IVPB 12/27/24 09:29 100 mls/hr Q48HR MARIANO Administration Nifedipine 30 mg 11/15/24 11:35 11/19/24 09:08 Nifedipine 30 Mg Tab.Er.24 PO 30 mg QAM MARIANO Administration Ondansetron HCl 4 mg 11/09/24 08:12 Ondansetron Inj 4 Mg/2 Ml Vial IV PUSH Q6H PRN Nausea And Vomiting Prednisone 5 mg 11/13/24 14:20 11/19/24 09:08 Prednisone 5 Mg Tablet PO 5 mg DAILY@0800 MARIANO Administration Tacrolimus 1 mg 11/09/24 10:00 11/19/24 21:33 Tacrolimus 0.5 Mg Capsule BY MOUTH 1 mg Q12HR MARIANO Administration Vitamin D 2,000 units 11/09/24 09:00 11/19/24 09:08 Cholecalciferol 1,000 Units Tablet PO 2,000 units DAILY MARIANO Administration Radiology Results: ITS Impressions Chest X-Ray 11/08/24 15:37 IMPRESSION: No acute cardiopulmonary process. Hip/Pelvis X-Ray 11/08/24 20:28 IMPRESSION: No acute osseous finding in the pelvis or left hip. Abdomen Ultrasound 11/10/24 13:32 IMPRESSION: Prominent atrophy and increased echogenicity of the kidneys, consistent with chronic renal medical disease; no evidence of obstructive uropathy Renal cysts Spleen measures 13 cm length, within upper limits of normal (up to 14 cm) Labs Labs: Laboratory Results - last 24 hr 11/20/24 05:55 WBC 5.1 RBC 3.21 L Hgb 9.2 L Hct 30.6 L MCV 95.3 MCH 28.7 MCHC 30.1 L RDW 17.9 H Plt Count 149 L MPV 9.9 Immature Gran % (Auto) 0.4 Neut % (Auto) 67.4 Lymph % (Auto) 22.0 [place] % (Auto) 9.6 H Eos % (Auto) 0.4 Baso % (Auto) 0.2 Lymph # (Auto) 1.12 [place] # (Auto) 0.5 Eos # (Auto) 0.0 Baso # (Auto) 0.0 Abs Immat Gran (auto) 0.02 Absolute Neuts (auto) 3.4 Absolute Nucleated RBC 0.000 Nucleated RBC % 0.0 Sodium 133 L Potassium 6.1 H* Chloride 103 Carbon Dioxide 25 Anion Gap 5 BUN 17 Creatinine 4.64 H Estim Creat Clear Calc 11 Estimated GFR 12 L Glucose 79 Calcium 8.5 Phosphorus 2.4 L Albumin 2.6 L
--- NOTE | 2024-11-20 13:20 | PM.CNCAR ---
Assessment and Plan Assessment and plan (1) Infective endocarditis: Code(s): 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 Status: Acute (2) Essential (primary) hypertension: Code(s): I10 - Essential (primary) hypertension Status: Chronic (3) Mixed hyperlipidemia: Code(s): E78.2 - Mixed hyperlipidemia Status: Acute (4) End stage renal disease: Code(s): N18.6 - End stage renal disease Status: Chronic (5) Dialysis patient: Code(s): Z99.2 - Dependence on renal dialysis Status: Acute Plan -Infective endocarditis-0.5 cm vegetation on anterior mitral leaflet without significant valvular pathology, a no paravalvular extension, no abscess -Sepsis secondary to bacteremia with Enterococcus faecalis -Hypertension -Hyperlipidemia -Hyperkalemia with potassium of 6.1 -End-stage renal disease on dialysis Plan: -Given size of vegetation less than 1 cm, no significant valvular dysfunction, no paravalvular extension, no abscess- recommend medical treatment of infective endocarditis with antibiotics for Enterococcus faecalis -Recommend ID consultation for choice of antibiotic therapy and duration -Recommend KALEN in a.m. to evaluate. Keep NPO at midnight -Treat hyperkalemia -Continue Coreg, nifedipine -Continue statin -Continue Lasix -Management of other medical problems per primary team History of Present Illness History of Present Illness Consult date/time: 11/20/24 13:20 Reason For Visit: Fever in dialysis patient, acute on chronic anemia Narrative: 54-year-old female with history of hyperlipidemia, blood clots, lupus nephritis, failed kidney transplant, on dialysis 3 times a week, anemia of chronic disease was admitted with chief complaint of off and on fevers since the end of July. She states that she had fevers since the end of July without any cough, nausea, emesis, diarrhea, abdominal pain, chills, sore throat, or burning urination. She she reports off and on weakness during this time. She reports some shortness of breath during the same period which is now resolved. Her hemoglobin was noted to be 6.3 at presentation and is now improved to 9.2 after transfusion. Her shortness of breath has resolved after improvement in hemoglobin. Blood cultures were positive for Enterococcus faecalis and she was started on daptomycin. An echo showed 0.5 cm vegetation on the anterior mitral leaflet. Cardiology was consulted for infective endocarditis. No chest pain, shortness of breath, dizziness, lightheadedness, palpitations, presyncope, syncope, leg swelling, recent weight gain. Workup: EKG: Sinus rhythm, nonspecific T-wave abnormality Blood culture: Positive for Enterococcus faecalis Chest x-ray: No acute cardiopulmonary process. ECHO: LVEF 65-70%, small mass measuring 0.5 cm is noted on the anterior mitral valve leaflet suggestive of vegetation, mild mitral regurgitation, mild aortic regurgitation, mild tricuspid regurgitation Review of Systems Review of Systems: A complete review of systems was performed and negative other than those mentioned in HPI [facility] Past Medical History Medical History Colon polyps Diarrhea Rectal bleeding History of kidney disease Allergies Screening mammogram, encounter for Dialysis patient renal failure History of endometrial biopsy (~01/23/16) menometrorrhagia Anemia Trichomonas vaginalis (TV) infection (05/04/16) High cholesterol HPV in female Abnormal Pap smear of cervix 07/14/15 lgsil ; 05/08/14 lgsil; 10/16/12 ASCUS / +HPV Hx of blood clots (~12/2012) 3 rt leg, 2 rt arm History of 2019 novel coronavirus disease (COVID-19) Chronic kidney disease, stage 5, kidney failure Chronic lupus nephritis Glomerular disorders in diseases classified elsewhere Hypertensive chronic kidney disease with stage 1 through stage 4 chronic kidney disease, or unspecified chronic kidney disease Intractable migraine without aura and without status migrainosus Surgical History Surgical History History of total hysterectomy February 2017 History of elective x2 History of robot-assisted laparoscopic hysterectomy [facility] w/RSO--HGSIL, ovarian cyst, leiomyoma H/O LEEP 12/31/15 HGSIL TRVAIS II History of dilation and curettage (08/03/15) hscope d&c/Novasure endometrial ablation History of endometrial ablation (08/03/15) hscope d&c/Novasure endometrial ablation History of left salpingo-oophorectomy (08/31/15) EXP LAP, LSO, ADHESIOLYSIS left dermoid cyst, left & right hydrosalpinx History of colposcopy with cervical biopsy 12/13/12 TRAVIS I 09/02/15 TRAVIS II 12/09/15 HGSIL History of ovarian cystectomy (07/11/07) EXP LAP; RIGHT OVARIAN CYSTECTOMY, R PARTIAL SALPINGECTOMY - R Ovarian Cyst, R hydrosalpinx History of laparoscopy (03/23/05) dx lap, chromopertubation - bilateral salpinx, pelvic adhesions, left ovarian enlargement, bilaterally blocked fallopian tubes Kidney transplant recipient (~08/2019) Family History Family History Mother Hypertension Father Family history of type 2 diabetes mellitus Family history of heart disease in male family member before age 55 Cerebrovascular accident Hypertension Diabetes mellitus Other Cancer Diabetes mellitus Hypertension Family history of heart disease in male family member before age 55 Social History Social History Smoking status: Never smoker Second hand tobacco smoke exposure: Yes Alcohol intake: never Substance use: never Substance use type: does not use Do You Feel Safe in your Home?: Yes Lack of Transportation: No Lack of Food: Never True Current Housing: I Have Housing Concerned About Future Housing: No Difficulty Paying Gas/Electric Bills: No Difficulty Paying for Meds: No Currently Unemployed: No Education: Decline to Answer Difficulty w/ Childcare or Family Care: Decline to Answer Living arrangements: alone Additional living arrangements comments: Occupation/Education: occupation Additional 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/education 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 [employer] Gender identity (if verbalized by the patient): Female Sexual Orientation (if Verbalized by the Patient): Straight or Heterosexual Spiritual care concerns: No Meds Home Medications and Allergies Home Medications ?Medication ?Instructions ?Recorded ?Confirmed ?Type cholecalciferol (vitamin D3) 50 2,000 unit PO DAILY 10/02/19 11/09/24 History mcg (2,000 unit) tablet tacrolimus 1 mg capsule, 1 mg PO Q12H 10/02/19 11/09/24 History immediate-release furosemide 80 mg tablet 80 mg PO BID 05/24/22 11/09/24 History doxazosin 8 mg tablet 8 mg PO DAILY 06/09/22 11/09/24 History biotin 10,000 mcg capsule 10,000 mcg PO DAILY 08/02/22 11/09/24 History multivitamin and minerals 1 tablet PO DAILY 09/12/22 11/09/24 History no.11-folic acid 5 mg tablet (Dialyvite 5000) atorvastatin 20 mg tablet 20 mg PO DAILY #90 tabs 02/08/24 11/09/24 Rx carvedilol 25 mg tablet 25 mg PO BID #60 tabs 05/09/24 11/09/24 Rx diltiazem HCl 120 mg See Rx Instructions .Route 08/23/24 11/09/24 Rx capsule,extended release 24 hr .COMPLEX #90 caps prednisone 5 mg tablet 5 mg PO DAILY 11/13/24 11/13/24 History Allergies Allergy/AdvReac Type Severity Reaction Status Date / Time lisinopril Allergy Severe Swelling Verified 10/10/24 11:04 of Lip/Tongue/Throat Penicillins Allergy Severe Swelling Verified 10/10/24 11:04 of Lip/Tongue/Throat CHRIST Inhibitors Allergy Intermediate SWELLING Verified 10/10/24 11:04 ibuprofen Allergy Intermediate UNABLE TO Verified 10/10/24 11:04 TAKE WITH LUPUS NEPHRITIS Vital Signs Vital Signs - 24 hr 11/19/24 14:00 11/19/24 20:00 11/19/24 20:15 Temperature 36.8 C 36.4 C Pulse Rate 78 80 Respiratory Rate 18 16 Blood Pressure 127/69 142/81 H Pulse Oximetry 100 100 Oxygen Delivery Room Air 11/19/24 21:33 11/20/24 05:25 11/20/24 06:59 Temperature 36.1 C L Pulse Rate 80 71 Respiratory Rate 18 Blood Pressure 198/99 H 197/89 H Pulse Oximetry 99 Oxygen Delivery 11/20/24 08:05 11/20/24 08:16 11/20/24 08:30 Temperature 36.3 C L Pulse Rate 62 61 58 L Respiratory Rate 16 Blood Pressure 182/91 H 174/94 H 190/93 H Pulse Oximetry 98 Oxygen Delivery 11/20/24 08:45 11/20/24 09:00 11/20/24 09:15 Temperature Pulse Rate 55 L 57 L 57 L Respiratory Rate Blood Pressure 195/97 H 186/96 H 199/89 H Pulse Oximetry Oxygen Delivery 11/20/24 09:30 11/20/24 09:45 11/20/24 10:00 Temperature Pulse Rate 57 L 61 61 Respiratory Rate Blood Pressure 181/85 H 196/87 H 181/89 H Pulse Oximetry Oxygen Delivery 11/20/24 10:15 11/20/24 10:30 11/20/24 10:45 Temperature Pulse Rate 61 65 63 Respiratory Rate Blood Pressure 194/86 H 181/85 H 168/84 H Pulse Oximetry Oxygen Delivery 11/20/24 11:00 11/20/24 11:15 11/20/24 11:30 Temperature Pulse Rate 70 67 70 Respiratory Rate Blood Pressure 164/88 H 168/82 H 158/81 H Pulse Oximetry Oxygen Delivery 11/20/24 11:47 11/20/24 11:55 Temperature 36.2 C L Pulse Rate 71 72 Respiratory Rate 14 Blood Pressure 164/82 H 157/83 H Pulse Oximetry 98 Oxygen Delivery Exam Narrative: General: Alert oriented x3, no acute distress Neck: Supple, JVD + Chest: Bilaterally clear to auscultation, no rales or rhonchi Cardiac: S1, S2 +, regular rate, regular rhythm, no murmurs or rubs Extremities: No pedal edema, no skin rash Neurologic: Alert and oriented x3, no focal neurological deficits Results Labs and Meds 11/20/24 05:55 11/20/24 05:55 Lab results: CBC 11/20/24 Range/Units 05:55 WBC 5.1 (4.5-10.0) K/mm3 RBC 3.21 L (4.2-5.4) M/mm3 Hgb 9.2 L (12.0-15.0) g/dL Hct 30.6 L (37.0-47.0) % Plt Count 149 L (150-375) k/mm3 Lymph # (Auto) 1.12 (0.9-3.2) K/mm3 Early # (Auto) 0.5 (0.1-0.6) K/mm3 Eos # (Auto) 0.0 (0-0.3) K/mm3 Baso # (Auto) 0.0 (0.0-0.1) K/mm3 Comprehensive Metabolic Panel 11/20/24 Range/Units 05:55 Sodium 133 L (137-145) mmol/L Potassium 6.1 H* (3.4-5.0) mmol/L Chloride 103 (98-107) mmol/L Carbon Dioxide 25 (22-30) mmol/L BUN 17 (7-17) mg/dL Creatinine 4.64 H (0.7-1.0) mg/dL Glucose 79 (65-110) mg/dL Calcium 8.5 (8.4-10.2) mg/dL Albumin 2.6 L (3.5-5.1) g/dL Intake and Output 11/19/24 11/20/24 11/20/24 23:59 07:59 15:59 Intake Total 1740 890 Output Total 300 1999 Balance 1740 590 -2000 Intake: Oral 1740 890 Output: Urine 300 Net UF Removed 1999 Other: # Unmeasured Voids 5 Patient Weight 11/20/24 23:59 Weight 61.8 kg
[2024-11-20] MEDS: NIFEdipine 30 MG TAB.ER.24 PO (14:18)
[2024-11-20] MEDS: CHOLECALCIFEROL 1,000 UNITS TABLET 2000 UNITS PO (14:19)
[2024-11-20] MEDS: carvediloL 25 MG TABLET PO ×2 (14:19→20:46)
[2024-11-20] MEDS: predniSONE 5 MG TABLET PO (14:20)
[2024-11-20] MEDS: TACROLIMUS 0.5 MG CAPSULE 1 MG BY MOUTH ×2 (14:20→20:46)
[2024-11-20] MEDS: DOXAZOSIN MESYLATE 4 MG TABLET 8 MG PO (14:20)
[2024-11-21 05:32] VITALS: BP 188/89; PULSE 66; RESP 12; TEMP 36.6; O2SAT 100
[2024-11-21 06:56] LABS: Basophils Percent Auto 0.2 % (0.2-1.2); Eosinophils Percent Auto 0.2 % (0-4.4); Hematocrit 29.2 % (37.0-47.0); Hemoglobin 8.9 g/dL (12.0-15.0); Immature Granulocyte Absolute 0.02 K/mm3 (0.00-0.031); Immature Granulocyte Percent A 0.4 % (0-0.5); Lymphocytes Absolute Auto 0.93 K/mm3 (0.9-3.2); Lymphocytes Percent Auto 19.8 % (18.3-44.2); Mean Corpuscular HGB Conc 30.5 g/dl (32-36); Mean Corpuscular Hemoglobin 29.2 pg (26-34); Mean Corpuscular Volume 95.7 fl (80-100); Monocytes Absolute Auto 0.5 K/mm3 (0.1-0.6); Monocytes Percent Auto 11.1 % (2.6-8.5); Neutrophils Absolute Auto 3.2 K/mm3 (1.3-6.7); Neutrophils Percent Auto 68.3 % (45.5-73.1); Platelet Count Result 143 k/mm3 (150-375); Red Blood Count 3.05 M/mm3 (4.2-5.4); Red Cell Distribution Width 17.7 % (11.5-14.5); White Blood Count 4.7 K/mm3 (4.5-10.0)
[2024-11-21 07:08] LABS: Albumin Level 2.5 g/dL (3.5-5.1); Anion Gap 0 mmol/L (4-12); Blood Urea Nitrogen 9 mg/dL (7-17); Calcium 8.1 mg/dL (8.4-10.2); Carbon Dioxide 35 mmol/L (22-30); Chloride 99 mmol/L (98-107); Estimated CRCL calculation 16 ml/min; Estimated Glomerular Filt Rate 19; Glucose 71 mg/dL (65-110); Magnesium 2.2 mg/dL (1.6-2.3); Phosphorus 2.7 mg/dL (2.5-4.5); Potassium 5.2 mmol/L (3.4-5.0); Sodium 134 mmol/L (137-145)
--- NOTE | 2024-11-21 08:38 | P.PNIM_ITS ---
Progress Note: A&P Assessment and Plan (1) UTI (urinary tract infection): Code(s): N39.0 - Urinary tract infection, site not specified Status: Acute (2) Anemia in chronic kidney disease: Code(s): N18.9 - Chronic kidney disease, unspecified; D63.1 - Anemia in chronic kidney disease Status: Acute (3) Essential (primary) hypertension: Code(s): I10 - Essential (primary) hypertension Status: Chronic (4) Dialysis patient: Code(s): Z99.2 - Dependence on renal dialysis Status: Acute (5) Immunosuppression: Code(s): D89.9 - Disorder involving the immune mechanism, unspecified Status: Acute (6) Chronic lupus nephritis: Code(s): M32.14 - Glomerular disease in systemic lupus erythematosus Status: Acute (7) Infective endocarditis: Code(s): 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 Status: Acute Plan This is a 54-year-old female with past medical history significant for lupus nephritis, end-stage renal disease on hemodialysis, failed kidney transplant, anemia of chronic disease. Patient dialyzes 3 times a week comes to the emergency room due to episode of fever, patient denies any cough, nausea, vomiting, has been in her usual state of health up until this point. Preliminary workup in emergency room was significant for hemoglobin of 6.3, a urinalysis was significant for numerous WBCs present. Sepsis Fever, possible resulting from UTI, infective endocarditis and bacteremia Patient tested negative for COVID RSV and flu. Chest x-ray with no acute cardiopulmonary disease. UA positive for UTI EKG did not show any acute ST-T changes. 2x Blood culture grow Enterococcus faecalis. Urinalysis does note evidence of UTI. Urine culture grows Enterococcus echo report: 1. Complete two-dimensional, color flow and Doppler transthoracic echocardiogram is performed. 2. Left ventricular chamber dimension is normal. 3. Left ventricular systolic function is normal, estimated at 65-70%. 4. There is moderate concentric increased left ventricular wall thickness. 5. The left ventricular diastolic function is grade I diastolic dysfunction. 6. E/e' 20 is elevated. 7. Global longitudinal strain is normal at -19.2%. 8. There is trace aortic valve regurgitation. 9. There is mild mitral valve regurgitation. 10. Small mobile echogenic mass measuring 0.5 cm attached to anterior mitral valve leaflet suggestive of vegetation. 11. There is mild tricuspid valve regurgitation. 12. No pulmonary hypertension, estimated pulmonary arterial systolic pressure is 32 mmHg. 13. There is trace pulmonic regurgitation. repeat BCX on 11/14 no growth so far Infective endocarditis and bacteremia Patient on levofloxacin and vancomycin. Discontinue Levaquin, continue vancomycin Dosing per pharmacist Repeat blood culture 11/09 and are positive of enterococcus TTE: Small mobile echogenic mass measuring 0.5 cm attached to anterior mitral valve leaflet suggestive of vegetation. 11/14The 3rd set for blood culture has no growth so far Changed to daptomycin IV after discussed with ID pharmacist 11/15 continue daptomycin iv (The [place] [employer] (AHA) guidelines recommend that antimicrobial therapy for infective endocarditis should be continued for a prolonged course, typically 4 to 6 weeks, after blood cultures have turned negative) Consult pulverizer for evaluation and treatment Appreciate cardiology consultation, pulverizer scheduled KALEN,, recommend ID consultation for choice of antibiotics Severe anemia Denies any active bleeding no blood in stool or urine. She is status post complete hysterectomy. Last colonoscopy in July 2024 was unremarkable. She has been feeling generally weak and also short of breath. She has been having intermittent fever for several weeks now. On arrival to the ED see was borderline febrile with a temperature of 37.9?. Otherwise vitals were stable except for elevated blood pressure. Laboratory studies showed CBC with hemoglobin of 6.3. received 2 units of packed red blood cell transfusion overnight. Her post transfusion hemoglobin is 8.9. and remains stable. occult blood stool negative. Possible due to end-stage renal disease consult supervisor shuttle fitting for evaluation treatment End-stage renal disease, hypokalemia Chem panel was unremarkable except for underlying CKD and low potassium of 2.7. Management per supervisor shuttle fitting UTI see above History of lupus nephritis status post kidney transplant failed and back on dialysis again Colon polyps Diarrhea intermittent reported. Will get stool studies History of DVT in 2012 Migraine Hypertension DVT prophylaxis SCDs Code status full code Called [facility] and discussed with cardiac service surgeon, plans to transfer the patient to [facility]. now patient has no bacterial growth on the 3rd blood culture. Consult pulverizer for evaluation and management Pending transfer Subjective Date/time seen: 11/21/24 08:38 Interval history: I saw and examined patient today. Patient has no new issue or event over the night Patient has no complaints, feels comfortable, denies chest pain, fever, chills, and pain, chest pain, palpitation. Patient is afebrile blood pressure stable, CBC chemistry are reviewed. 3rd blood cultures no growth so far Exam Narrative: GENERAL: Pleasant, in no acute distress. Well-nourished. - EYES: EOMI. Anicteric. - HENT: Moist mucous membranes. - LUNGS: Clear to auscultation bilateral ly, no wheezing, rhonchi, or rales. - CARDIOVASCULAR: Regular rate and rhyth m. No murmur. No JVD. - ABDOMEN: Soft, non-tender and non-dist ended. No palpable masses. - EXTREMITIES: No edema. Peripheral puls es 2+. Non-tender. - NEUROLOGIC: No focal neurological defi cits. CN II-XII grossly intact. - PSYCHIATRIC: Awake, Alert and oriented x 3. Appropriate mood and affect. General weakness - SKIN: No rashes or lesions. Warm. - LYMPH: No cervical lymphadenopathy. Objective Data Vital Signs Vital Signs: Vital Signs - 24 hr 11/20/24 08:45 11/20/24 09:00 11/20/24 09:15 Temperature Pulse Rate 55 L 57 L 57 L Respiratory Rate Blood Pressure 195/97 H 186/96 H 199/89 H Pulse Oximetry Oxygen Delivery 11/20/24 09:30 11/20/24 09:45 11/20/24 10:00 Temperature Pulse Rate 57 L 61 61 Respiratory Rate Blood Pressure 181/85 H 196/87 H 181/89 H Pulse Oximetry Oxygen Delivery 11/20/24 10:15 11/20/24 10:30 11/20/24 10:45 Temperature Pulse Rate 61 65 63 Respiratory Rate Blood Pressure 194/86 H 181/85 H 168/84 H Pulse Oximetry Oxygen Delivery 11/20/24 11:00 11/20/24 11:15 11/20/24 11:30 Temperature Pulse Rate 70 67 70 Respiratory Rate Blood Pressure 164/88 H 168/82 H 158/81 H Pulse Oximetry Oxygen Delivery 11/20/24 11:47 11/20/24 11:55 11/20/24 14:00 Temperature 97.1 F L Pulse Rate 71 72 84 Respiratory Rate 14 18 Blood Pressure 164/82 H 157/83 H 148/69 H Pulse Oximetry 98 99 Oxygen Delivery 11/20/24 14:19 11/20/24 20:40 11/20/24 20:46 Temperature Pulse Rate 83 80 81 Respiratory Rate 16 Blood Pressure Pulse Oximetry 100 Oxygen Delivery Room Air 11/20/24 21:19 11/21/24 05:32 Temperature 97.8 F 98 F Pulse Rate 80 66 Respiratory Rate 16 12 Blood Pressure 144/80 H 188/89 H Pulse Oximetry 100 100 Oxygen Delivery Intake/Output Intake/Output: Intake & Output 11/18/24 11/19/24 11/20/24 11/21/24 23:59 23:59 23:59 23:59 Intake Total 1750 2298 1870 480 Output Total 6023 665 0271 Balance 50 2198 -430 480 Meds/Results Medications: Active Medications Generic Name Dose Route Start Last Admin Trade Name Freq PRN Reason Stop Dose Admin Acetaminophen 650 mg 11/08/24 22:54 11/13/24 07:46 Acetaminophen 325 Mg Tablet PO 650 mg Q4H PRN Administration Mild Pain (1-3) or Fever Carvedilol 25 mg 11/10/24 21:00 11/20/24 20:46 Carvedilol 25 Mg Tablet PO 25 mg Q12HR MARIANO Administration Clonidine HCl 0.1 mg 11/20/24 16:22 Clonidine Hcl 0.1 Mg Tablet PO Q8HR PRN systolic bp above 180 Doxazosin Mesylate 8 mg 11/09/24 09:00 11/20/24 14:20 Doxazosin Mesylate 4 Mg Tablet PO 8 mg DAILY MARIANO Administration Famotidine 10 mg 11/16/24 09:00 11/20/24 20:46 Famotidine 10 Mg Tablet PO Not Given Q12HR MARIANO Furosemide 80 mg 11/19/24 21:00 11/20/24 20:46 Furosemide 80 Mg Tablet PO Not Given Q12HR MARIANO Albumin Human 50 mls @ 999 mls/hr 11/10/24 10:21 Albutein IVPB 12/10/24 10:20 Q10M PRN HYPOTENSION Daptomycin 700 mg/ Sodium 50 mls @ 100 mls/hr 11/21/24 15:00 11/19/24 15:05 Chloride IVPB 12/27/24 09:29 100 mls/hr Q48HR MARIANO Administration Nifedipine 60 mg 11/20/24 16:24 Nifedipine 30 Mg Tab.Er.24 PO QAM MARIANO Ondansetron HCl 4 mg 11/09/24 08:12 Ondansetron Inj 4 Mg/2 Ml Vial IV PUSH Q6H PRN Nausea And Vomiting Prednisone 5 mg 11/13/24 14:20 11/20/24 14:20 Prednisone 5 Mg Tablet PO 5 mg DAILY@0800 MARIANO Administration Tacrolimus 1 mg 11/09/24 10:00 11/20/24 20:46 Tacrolimus 0.5 Mg Capsule BY MOUTH 1 mg Q12HR MARIANO Administration Vitamin D 2,000 units 11/09/24 09:00 11/20/24 14:19 Cholecalciferol 1,000 Units Tablet PO 2,000 units DAILY MARIANO Administration Radiology Results: ITS Impressions Chest X-Ray 11/08/24 15:37 IMPRESSION: No acute cardiopulmonary process. Hip/Pelvis X-Ray 11/08/24 20:28 IMPRESSION: No acute osseous finding in the pelvis or left hip. Abdomen Ultrasound 11/10/24 13:32 IMPRESSION: Prominent atrophy and increased echogenicity of the kidneys, consistent with chronic renal medical disease; no evidence of obstructive uropathy Renal cysts Spleen measures 13 cm length, within upper limits of normal (up to 14 cm) Labs Labs: Laboratory Results - last 24 hr 11/21/24 06:39 WBC 4.7 RBC 3.05 L Hgb 8.9 L Hct 29.2 L MCV 95.7 MCH 29.2 MCHC 30.5 L RDW 17.7 H Plt Count 143 L MPV 10.0 Immature Gran % (Auto) 0.4 Neut % (Auto) 68.3 Lymph % (Auto) 19.8 [place] % (Auto) 11.1 H Eos % (Auto) 0.2 Baso % (Auto) 0.2 Lymph # (Auto) 0.93 [place] # (Auto) 0.5 Eos # (Auto) 0.0 Baso # (Auto) 0.0 Abs Immat Gran (auto) 0.02 Absolute Neuts (auto) 3.2 Absolute Nucleated RBC 0.000 Nucleated RBC % 0.0 Sodium 134 L Potassium 5.2 H Chloride 99 Carbon Dioxide 35 H Anion Gap 0 L BUN 9 D Creatinine 3.14 H Estim Creat Clear Calc 16 Estimated GFR 19 L Glucose 71 Calcium 8.1 L Phosphorus 2.7 Magnesium 2.2 Albumin 2.5 L
[2024-11-21] MEDS: TACROLIMUS 0.5 MG CAPSULE 1 MG BY MOUTH ×2 (08:55→21:15)
[2024-11-21] MEDS: CHOLECALCIFEROL 1,000 UNITS TABLET 2000 UNITS PO (08:55)
[2024-11-21] MEDS: DOXAZOSIN MESYLATE 4 MG TABLET 8 MG PO (08:55)
[2024-11-21 08:56] VITALS: PULSE 66
[2024-11-21] MEDS: carvediloL 25 MG TABLET PO ×2 (08:56→21:15)
[2024-11-21] MEDS: NIFEdipine 30 MG TAB.ER.24 60 MG PO (08:56)
[2024-11-21] MEDS: predniSONE 5 MG TABLET PO (08:56)
[2024-11-21] MEDS: FUROSEMIDE 80 MG TABLET PO ×2 (08:56→21:16)
--- NOTE | 2024-11-21 12:32 | PM.PNCARD ---
Progress Note: A&P Assessment and Plan (1) Infective endocarditis: Code(s): 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 Status: Acute (2) Mixed hyperlipidemia: Code(s): E78.2 - Mixed hyperlipidemia Status: Acute (3) Essential (primary) hypertension: Code(s): I10 - Essential (primary) hypertension Status: Chronic (4) End stage renal disease: Code(s): N18.6 - End stage renal disease Status: Chronic (5) Dialysis patient: Code(s): Z99.2 - Dependence on renal dialysis Status: Acute Plan Assessment: -Infective endocarditis-0.5 cm vegetation on anterior mitral leaflet without significant valvular pathology, a no paravalvular extension, no abscess -Sepsis secondary to bacteremia with Enterococcus faecalis on daptomycin -Hypertension -Hyperlipidemia -End-stage renal disease on dialysis -Acute on chronic anemia with hemoglobin corrected to greater than 8 Plan: -Given size of vegetation less than 1 cm, no significant valvular dysfunction, no paravalvular extension, no abscess- recommend medical treatment of infective endocarditis with antibiotics for Enterococcus faecalis -Recommend ID consultation for choice of antibiotic therapy and duration -KALEN in a.m. to evaluate. Keep NPO at midnight -Continue Coreg, nifedipine -Continue statin -Continue Lasix -Management of other medical problems per primary team Subjective Date/time seen: 11/21/24 12:32 Interval history: Reason For encounter: Infective endocarditis HPI: 54-year-old female with history of hyperlipidemia, blood clots, lupus nephritis, failed kidney transplant, on dialysis 3 times a week, anemia of chronic disease was admitted with fevers, found to have bacteremia with Enterococcus faecalis and infective endocarditis with 0.5 cm vegetation on anterior mitral leaflet. Workup: EKG: Sinus rhythm, nonspecific T-wave abnormality Blood culture: Positive for Enterococcus faecalis Chest x-ray: No acute cardiopulmonary process. ECHO: LVEF 65-70%, small mass measuring 0.5 cm is noted on the anterior mitral valve leaflet suggestive of vegetation, mild mitral regurgitation, mild aortic regurgitation, mild tricuspid regurgitation Interval history:No chest pain, shortness of breath, dizziness, lightheadedness, palpitations, nausea, emesis, abdominal pain. Review of Systems Review of Systems: A complete review of systems was performed and negative other than those mentioned in the HPI Exam Narrative: General: Alert oriented x3, no acute distress Neck: Supple, JVD + Chest: Bilaterally clear to auscultation, no rales or rhonchi Cardiac: S1, S2 +, regular rate, regular rhythm, no murmurs or rubs Extremities: No pedal edema, no skin rash Neurologic: Alert and oriented x3, no focal neurological deficits Objective Data Vital Signs Vital Signs: Vital Signs - 24 hr 11/20/24 14:00 11/20/24 14:19 11/20/24 20:40 Temperature Pulse Rate 84 83 80 Respiratory Rate 18 16 Blood Pressure 148/69 H Pulse Oximetry 99 100 Oxygen Delivery Room Air 11/20/24 20:46 11/20/24 21:19 11/21/24 05:32 Temperature 36.6 C 36.6 C Pulse Rate 81 80 66 Respiratory Rate 16 12 Blood Pressure 144/80 H 188/89 H Pulse Oximetry 100 100 Oxygen Delivery 11/21/24 08:56 Temperature Pulse Rate 66 Respiratory Rate Blood Pressure Pulse Oximetry Oxygen Delivery Intake/Output Intake/Output: Intake & Output 11/18/24 11/19/24 11/20/24 11/21/24 23:59 23:59 23:59 23:59 Intake Total 1750 2298 1870 480 Output Total 9862 962 1007 Balance 50 2198 -430 480 Meds/Results Medications: Active Medications Generic Name Dose Route Start Last Admin Trade Name Edwinq PRN Reason Stop Dose Admin Acetaminophen 650 mg 11/08/24 22:54 11/13/24 07:46 Acetaminophen 325 Mg Tablet PO 650 mg Q4H PRN Administration Mild Pain (1-3) or Fever Carvedilol 25 mg 11/10/24 21:00 11/21/24 08:56 Carvedilol 25 Mg Tablet PO 25 mg Q12HR MARIANO Administration Clonidine HCl 0.1 mg 11/20/24 16:22 Clonidine Hcl 0.1 Mg Tablet PO Q8HR PRN systolic bp above 180 Doxazosin Mesylate 8 mg 11/09/24 09:00 11/21/24 08:55 Doxazosin Mesylate 4 Mg Tablet PO 8 mg DAILY MARIANO Administration Famotidine 10 mg 11/16/24 09:00 11/21/24 08:56 Famotidine 10 Mg Tablet PO 10 mg Q12HR MARIANO Administration Furosemide 80 mg 11/19/24 21:00 11/21/24 08:56 Furosemide 80 Mg Tablet PO 80 mg Q12HR MARIANO Administration Albumin Human 50 mls @ 999 mls/hr 11/10/24 10:21 Albutein IVPB 12/10/24 10:20 Q10M PRN HYPOTENSION Daptomycin 700 mg/ Sodium 50 mls @ 100 mls/hr 11/21/24 15:00 11/19/24 15:05 Chloride IVPB 12/27/24 09:29 100 mls/hr Q48HR MARIANO Administration Nifedipine 60 mg 11/20/24 16:24 11/21/24 08:56 Nifedipine 30 Mg Tab.Er.24 PO 60 mg QAM MARIANO Administration Ondansetron HCl 4 mg 11/09/24 08:12 Ondansetron Inj 4 Mg/2 Ml Vial IV PUSH Q6H PRN Nausea And Vomiting Prednisone 5 mg 11/13/24 14:20 11/21/24 08:56 Prednisone 5 Mg Tablet PO 5 mg DAILY@0800 MARIANO Administration Tacrolimus 1 mg 11/09/24 10:00 11/21/24 08:55 Tacrolimus 0.5 Mg Capsule BY MOUTH 1 mg Q12HR MARIANO Administration Vitamin D 2,000 units 11/09/24 09:00 11/21/24 08:55 Cholecalciferol 1,000 Units Tablet PO 2,000 units DAILY MARIANO Administration Radiology Results: ITS Impressions Chest X-Ray 11/08/24 15:37 IMPRESSION: No acute cardiopulmonary process. Hip/Pelvis X-Ray 11/08/24 20:28 IMPRESSION: No acute osseous finding in the pelvis or left hip. Abdomen Ultrasound 11/10/24 13:32 IMPRESSION: Prominent atrophy and increased echogenicity of the kidneys, consistent with chronic renal medical disease; no evidence of obstructive uropathy Renal cysts Spleen measures 13 cm length, within upper limits of normal (up to 14 cm) Labs Labs: Laboratory Results - last 24 hr 11/21/24 06:39 WBC 4.7 RBC 3.05 L Hgb 8.9 L Hct 29.2 L MCV 95.7 MCH 29.2 MCHC 30.5 L RDW 17.7 H Plt Count 143 L MPV 10.0 Immature Gran % (Auto) 0.4 Neut % (Auto) 68.3 Lymph % (Auto) 19.8 [place] % (Auto) 11.1 H Eos % (Auto) 0.2 Baso % (Auto) 0.2 Lymph # (Auto) 0.93 [place] # (Auto) 0.5 Eos # (Auto) 0.0 Baso # (Auto) 0.0 Abs Immat Gran (auto) 0.02 Absolute Neuts (auto) 3.2 Absolute Nucleated RBC 0.000 Nucleated RBC % 0.0 Sodium 134 L Potassium 5.2 H Chloride 99 Carbon Dioxide 35 H Anion Gap 0 L BUN 9 D Creatinine 3.14 H Estim Creat Clear Calc 16 Estimated GFR 19 L Glucose 71 Calcium 8.1 L Phosphorus 2.7 Magnesium 2.2 Albumin 2.5 L
[2024-11-21 14:00] VITALS: BP 121/67; PULSE 76; RESP 20; TEMP 36.7; O2SAT 100
--- NOTE | 2024-11-21 14:38 | PM.PNNEP ---
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 Status: Acute Assessment and Plan: as noted by Echo (on 11/11): left ventricular systolic function is normal, estimated at 65-70% trace aortic valve regurgitation mild mitral valve regurgitation small mobile echogenic mass measuring 0.5 cm attached to anterior mitral valve leaflet suggestive of vegetation mild tricuspid valve regurgitation on antibiotics was waiting for transfer to [facility] for CTS evaluation however, now that has bacteremia cleared - is transfer to [facility] needed? Cardiology recommendations noted -- plan KALEN tomorrow AM to reassess (3) Bacteremia: Code(s): R78.81 - Bacteremia Status: Acute Assessment and Plan: culture results noted: blood cultures (from 11/09) - Enterococcus faecalis urine culture (from 11/08) - Enterococcus faecalis blood culture (from 11/11) - Enterococcus faecalis blood cultures (from 11/14) - no growth to date now complicated by #2 this issue may have progressed since on immunosuppression medications (to maintain residual kidney function of transplant kidney) on antibiotics (4) Anemia: Code(s): D64.9 - Anemia, unspecified Status: Acute Assessment and Plan: severity/recurrence out of proportion to blame ESRD alone H/H doing better currently s/p PRBC transfusion suspect possible resistance to PRESTON/Mircera due to #3 (?) however, her lupus could be contributing as well low complements noted -- related to #2 (?) ELLEN and dsDNA-Ab negative serum and urine immunofixation with IgG kappa monoclonal band Hem/Onc recommendations noted Epogen with dialysis follow trend of H/H (5) UTI (urinary tract infection): Code(s): N39.0 - Urinary tract infection, site not specified Status: Acute Assessment and Plan: urine culture with Enterococcus (see #3) on antibiotics (6) Essential (primary) hypertension: Code(s): I10 - Essential (primary) hypertension Status: Chronic Assessment and Plan: running high in the morning nifedipine dosage recently increased follow trend of hemodynamics (7) Failed kidney transplant: Code(s): T86.12 - Kidney transplant failure Status: Chronic Assessment and Plan: s/p renal transplantation in 09/14/2019 transplant failure in March 2021 restarted on dialysis at that time remains on tacrolimus and prednisone to maintain residual transplant kidney function (8) Renal osteodystrophy: Code(s): N25.0 - Renal osteodystrophy Status: Acute Assessment and Plan: low calcium and low phosphorus along with low potassium liberalized diet but will add K+ restrictions since K+ a bit high now holding phosphate binders Will continue to follow. Subjective Date/time seen: 11/21/24 14:38 Interval history: Follow-up for end stage renal disease on hemodialysis. Tolerated dialysis treatment yesterday morning without any issue or problems; KALEN rescheduled for tomorrow morning; no apparent distress noted at the time of my visit; no events overnight or earlier this morning; appears to be feeling reasonably well. Exam Narrative: General: WD/WN female in NAD Heart: normal S1 and S2; no rub Lungs: clear to auscultation Abdomen: soft, nontender, nondistended, positive bowel sounds Extremities: no cyanosis or clubbing; no edema Skin: warm and intact Objective Data Vital Signs Vital Signs: Vital Signs Temp Pulse Resp BP Pulse Ox O2 Del Method 11/21/24 14:00 98.0 F 76 20 121/67 100 11/21/24 08:56 66 11/21/24 05:32 98 F 66 12 188/89 H 100 11/20/24 21:19 97.8 F 80 16 144/80 H 100 11/20/24 20:46 81 11/20/24 20:40 80 16 100 Room Air Intake/Output Intake/Output: Intake & Output 11/18/24 11/19/24 11/20/24 11/21/24 23:59 23:59 23:59 23:59 Intake Total 1750 2298 1870 1440 Output Total 2671 530 6353 Balance 50 2198 -430 1440 Meds/Results Medications: Active Medications Generic Name Dose Route Start Last Admin Trade Name Freq PRN Reason Stop Dose Admin Acetaminophen 650 mg 11/08/24 22:54 11/13/24 07:46 Acetaminophen 325 Mg Tablet PO 650 mg Q4H PRN Administration Mild Pain (1-3) or Fever Carvedilol 25 mg 11/10/24 21:00 11/21/24 08:56 Carvedilol 25 Mg Tablet PO 25 mg Q12HR MARIANO Administration Clonidine HCl 0.1 mg 11/20/24 16:22 Clonidine Hcl 0.1 Mg Tablet PO Q8HR PRN systolic bp above 180 Doxazosin Mesylate 8 mg 11/09/24 09:00 11/21/24 08:55 Doxazosin Mesylate 4 Mg Tablet PO 8 mg DAILY MARIANO Administration Furosemide 80 mg 11/19/24 21:00 11/21/24 08:56 Furosemide 80 Mg Tablet PO 80 mg Q12HR MARIANO Administration Albumin Human 50 mls @ 999 mls/hr 11/10/24 10:21 Albutein IVPB 12/10/24 10:20 Q10M PRN HYPOTENSION Daptomycin 700 mg/ Sodium 50 mls @ 100 mls/hr 11/21/24 15:00 11/19/24 15:05 Chloride IVPB 12/27/24 09:29 100 mls/hr Q48HR MARIANO Administration Nifedipine 60 mg 11/20/24 16:24 11/21/24 08:56 Nifedipine 30 Mg Tab.Er.24 PO 60 mg QAM MARIANO Administration Ondansetron HCl 4 mg 11/09/24 08:12 Ondansetron Inj 4 Mg/2 Ml Vial IV PUSH Q6H PRN Nausea And Vomiting Prednisone 5 mg 11/13/24 14:20 11/21/24 08:56 Prednisone 5 Mg Tablet PO 5 mg DAILY@0800 MARIANO Administration Tacrolimus 1 mg 11/09/24 10:00 11/21/24 08:55 Tacrolimus 0.5 Mg Capsule BY MOUTH 1 mg Q12HR MARIANO Administration Vitamin D 2,000 units 11/09/24 09:00 11/21/24 08:55 Cholecalciferol 1,000 Units Tablet PO 2,000 units DAILY MARIANO Administration Radiology Results: ITS Impressions Chest X-Ray 11/08/24 15:37 IMPRESSION: No acute cardiopulmonary process. Hip/Pelvis X-Ray 11/08/24 20:28 IMPRESSION: No acute osseous finding in the pelvis or left hip. Abdomen Ultrasound 11/10/24 13:32 IMPRESSION: Prominent atrophy and increased echogenicity of the kidneys, consistent with chronic renal medical disease; no evidence of obstructive uropathy Renal cysts Spleen measures 13 cm length, within upper limits of normal (up to 14 cm) Labs Labs: Laboratory Tests 11/21/24 06:39 11/21/24 06:39 Calcium 8.1 L Phosphorus 2.7 Magnesium 2.2 Albumin 2.5 L
--- NOTE | 2024-11-21 14:38 | P.PNNP_ITS ---
Progress Note: A&P Assessment and Plan (1) End stage renal disease: Code(s): N18.6 - End stage renal disease Status: Chronic Assessment and Plan: * HD tomorrow * continue outpatient M/W/F dialysis schedule * follow electrolytes, volume status, and clearance (2) Infective endocarditis: Code(s): 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 Status: Acute Assessment and Plan: * as noted by Echo (on 11/11): * left ventricular systolic function is normal, estimated at 65-70% * trace aortic valve regurgitation * mild mitral valve regurgitation * small mobile echogenic mass measuring 0.5 cm attached to anterior mitral valve leaflet suggestive of vegetation * mild tricuspid valve regurgitation * on antibiotics * was waiting for transfer to [facility] for CTS evaluation * however, now that has bacteremia cleared - is transfer to [facility] needed? * Cardiology recommendations noted -- plan KALEN tomorrow AM to reassess (3) Bacteremia: Code(s): R78.81 - Bacteremia Status: Acute Assessment and Plan: * culture results noted: * blood cultures (from 11/09) - Enterococcus faecalis * urine culture (from 11/08) - Enterococcus faecalis * blood culture (from 11/11) - Enterococcus faecalis * blood cultures (from 11/14) - no growth to date * now complicated by #2 * this issue may have progressed since on immunosuppression medications (to maintain residual kidney function of transplant kidney) * on antibiotics (4) Anemia: Code(s): D64.9 - Anemia, unspecified Status: Acute Assessment and Plan: * severity/recurrence out of proportion to blame ESRD alone * H/H doing better currently * s/p PRBC transfusion * suspect possible resistance to PRESTON/Mircera due to #3 (?) * however, her lupus could be contributing as well * low complements noted -- related to #2 (?) * ELLEN and dsDNA-Ab negative * serum and urine immunofixation with IgG kappa monoclonal band * Hem/Onc recommendations noted * Epogen with dialysis * follow trend of H/H (5) UTI (urinary tract infection): Code(s): N39.0 - Urinary tract infection, site not specified Status: Acute Assessment and Plan: * urine culture with Enterococcus (see #3) * on antibiotics (6) Essential (primary) hypertension: Code(s): I10 - Essential (primary) hypertension Status: Chronic Assessment and Plan: * running high in the morning * nifedipine dosage recently increased * follow trend of hemodynamics (7) Failed kidney transplant: Code(s): T86.12 - Kidney transplant failure Status: Chronic Assessment and Plan: * s/p renal transplantation in 09/14/2019 * transplant failure in March 2021 * restarted on dialysis at that time * remains on tacrolimus and prednisone to maintain residual transplant kidney function (8) Renal osteodystrophy: Code(s): N25.0 - Renal osteodystrophy Status: Acute Assessment and Plan: * low calcium and low phosphorus along with low potassium * liberalized diet but will add K+ restrictions since K+ a bit high now * holding phosphate binders Will continue to follow. L Subjective Date/time seen: 11/21/24 14:38 Interval history: Follow-up for end stage renal disease on hemodialysis. Tolerated dialysis treatment yesterday morning without any issue or problems; KALEN rescheduled for tomorrow morning; no apparent distress noted at the time of my visit; no events overnight or earlier this morning; appears to be feeling reasonably well. Exam 2 Narrative: General: WD/WN female in NAD Heart: normal S1 and S2; no rub Lungs: clear to auscultation Abdomen: soft, nontender, nondistended, positive bowel sounds Extremities: no cyanosis or clubbing; no edema Skin: warm and intact Objective Data Vital Signs Vital Signs: Vital Signs Temp Pulse Resp BP Pulse Ox O2 Del Method 11/21/24 14:00 98.0 F 76 20 121/67 100 11/21/24 08:56 66 11/21/24 05:32 98 F 66 12 188/89 H 100 11/20/24 21:19 97.8 F 80 16 144/80 H 100 11/20/24 20:46 81 11/20/24 20:40 80 16 100 Room Air Intake/Output Intake/Output: Intake & Output 11/18/24 11/19/24 11/20/24 11/21/24 23:59 23:59 23:59 23:59 Intake Total 1750 2298 1870 1440 Output Total 2632 830 8469 Balance 50 2198 -430 1440 Meds/Results Medications: Active Medications Generic Name Dose Route Start Last Admin Trade Name Freq PRN Reason Stop Dose Admin Acetaminophen 650 mg 11/08/24 22:54 11/13/24 07:46 Acetaminophen 325 Mg Tablet PO 650 mg Q4H PRN Administration Mild Pain (1-3) or Fever Carvedilol 25 mg 11/10/24 21:00 11/21/24 08:56 Carvedilol 25 Mg Tablet PO 25 mg Q12HR MARIANO Administration Clonidine HCl 0.1 mg 11/20/24 16:22 Clonidine Hcl 0.1 Mg Tablet PO Q8HR PRN systolic bp above 180 Doxazosin Mesylate 8 mg 11/09/24 09:00 11/21/24 08:55 Doxazosin Mesylate 4 Mg Tablet PO 8 mg DAILY MARIANO Administration Furosemide 80 mg 11/19/24 21:00 11/21/24 08:56 Furosemide 80 Mg Tablet PO 80 mg Q12HR MARIANO Administration Albumin Human 50 mls @ 999 mls/hr 11/10/24 10:21 Albutein IVPB 12/10/24 10:20 Q10M PRN HYPOTENSION Daptomycin 700 mg/ Sodium 50 mls @ 100 mls/hr 11/21/24 15:00 11/19/24 15:05 Chloride IVPB 12/27/24 09:29 100 mls/hr Q48HR MARIANO Administration Nifedipine 60 mg 11/20/24 16:24 11/21/24 08:56 Nifedipine 30 Mg Tab.Er.24 PO 60 mg QAM MARIAON Administration Ondansetron HCl 4 mg 11/09/24 08:12 Ondansetron Inj 4 Mg/2 Ml Vial IV PUSH Q6H PRN Nausea And Vomiting Prednisone 5 mg 11/13/24 14:20 11/21/24 08:56 Prednisone 5 Mg Tablet PO 5 mg DAILY@0800 MARIANO Administration Tacrolimus 1 mg 11/09/24 10:00 11/21/24 08:55 Tacrolimus 0.5 Mg Capsule BY MOUTH 1 mg Q12HR MARIANO Administration Vitamin D 2,000 units 11/09/24 09:00 11/21/24 08:55 Cholecalciferol 1,000 Units Tablet PO 2,000 units DAILY MARIANO Administration Radiology Results: ITS Impressions Chest X-Ray 11/08/24 15:37 IMPRESSION: No acute cardiopulmonary process. Hip/Pelvis X-Ray 11/08/24 20:28 IMPRESSION: No acute osseous finding in the pelvis or left hip. Abdomen Ultrasound 11/10/24 13:32 IMPRESSION: Prominent atrophy and increased echogenicity of the kidneys, consistent with chronic renal medical disease; no evidence of obstructive uropathy Renal cysts Spleen measures 13 cm length, within upper limits of normal (up to 14 cm) Labs Labs: Laboratory Tests 11/21/24 06:39 11/21/24 06:39 Calcium 8.1 L Phosphorus 2.7 Magnesium 2.2 Albumin 2.5 L
[2024-11-21] MEDS: DAPTOmycin 700 MG in SODIUM CHLORIDE 0.9% IV 50 ML 100 MG IVPB (16:30)
[2024-11-21 19:45] VITALS: BP 130/73; PULSE 82; RESP 12; TEMP 36.3; O2SAT 100
[2024-11-21 21:15] VITALS: PULSE 82
[2024-11-22] VITALS (28 sets, daily range): BP systolic 99–167; BP diastolic 67–86; PULSE 64–83; RESP 12–18; TEMP 36.3–37; O2SAT 97–100
[2024-11-22 06:27] LABS: Basophils Percent Auto 0.2 % (0.2-1.2); Eosinophils Percent Auto 0.7 % (0-4.4); Hematocrit 32.4 % (37.0-47.0); Hemoglobin 9.8 g/dL (12.0-15.0); Immature Granulocyte Absolute 0.02 K/mm3 (0.00-0.031); Immature Granulocyte Percent A 0.5 % (0-0.5); Lymphocytes Absolute Auto 0.93 K/mm3 (0.9-3.2); Lymphocytes Percent Auto 21.5 % (18.3-44.2); Mean Corpuscular HGB Conc 30.2 g/dl (32-36); Mean Corpuscular Volume 95.9 fl (80-100); Mean Platelet Volume 9.7 fl (7.4-10.4); Monocytes Absolute Auto 0.5 K/mm3 (0.1-0.6); Monocytes Percent Auto 10.9 % (2.6-8.5); Neutrophils Absolute Auto 2.9 K/mm3 (1.3-6.7); Neutrophils Percent Auto 66.2 % (45.5-73.1); Platelet Count Result 165 k/mm3 (150-375); Red Blood Count 3.38 M/mm3 (4.2-5.4); Red Cell Distribution Width 17.6 % (11.5-14.5); White Blood Count 4.3 K/mm3 (4.5-10.0)
[2024-11-22 06:43] LABS: Albumin Level 2.9 g/dL (3.5-5.1); Anion Gap 4 mmol/L (4-12); Blood Urea Nitrogen 16 mg/dL (7-17); Calcium 8.3 mg/dL (8.4-10.2); Carbon Dioxide 29 mmol/L (22-30); Chloride 102 mmol/L (98-107); Creatine Kinase < 20 U/L (30-135); Estimated CRCL calculation 11 ml/min; Estimated Glomerular Filt Rate 12; Glucose 78 mg/dL (65-110); Magnesium 2.5 mg/dL (1.6-2.3); Phosphorus 2.6 mg/dL (2.5-4.5); Sodium 135 mmol/L (137-145)
[2024-11-22] MEDS: CHOLECALCIFEROL 1,000 UNITS TABLET 2000 UNITS PO (09:13)
[2024-11-22] MEDS: NIFEdipine 30 MG TAB.ER.24 60 MG PO (09:13)
[2024-11-22] MEDS: predniSONE 5 MG TABLET PO (09:14)
[2024-11-22] MEDS: carvediloL 25 MG TABLET PO ×2 (09:14→21:05)
[2024-11-22] MEDS: TACROLIMUS 0.5 MG CAPSULE 1 MG BY MOUTH ×2 (09:14→21:04)
[2024-11-22] MEDS: DOXAZOSIN MESYLATE 4 MG TABLET 8 MG PO (09:14)
--- NOTE | 2024-11-22 12:28 | WPDHPUPDATE1 ---
History and Physical Update Update Date/Time: 11/22/24 12:28 History and Physical has been reviewed, including an updated exam of the patient. There are NO changes in the patient's condition. Risks, benefits, and alternatives have been discussed and questions answered. Patient agrees to proceed with procedure.
--- NOTE | 2024-11-22 12:29 | P.SEDATION_ITS ---
Moderate Sedation Note-Pt Data Patient Data Diagnosis: Mitral valve vegetation. Present Complaint: Mitral valve vegetation. Procedure to be performed/Plan: Transesophageal echocardiogram Allergies Allergy/AdvReac Type Severity Reaction Status Date / Time lisinopril Allergy Severe Swelling Verified 10/10/24 11:04 of Lip/Tongue/Throat Penicillins Allergy Severe Swelling Verified 10/10/24 11:04 of Lip/Tongue/Throat CHRIST Inhibitors Allergy Intermediate SWELLING Verified 10/10/24 11:04 ibuprofen Allergy Intermediate UNABLE TO Verified 10/10/24 11:04 TAKE WITH LUPUS NEPHRITIS Home Medications ?Medication ?Instructions ?Recorded ?Confirmed ?Type cholecalciferol (vitamin D3) 50 2,000 unit PO DAILY 10/02/19 11/09/24 History mcg (2,000 unit) tablet tacrolimus 1 mg capsule, 1 mg PO Q12H 10/02/19 11/09/24 History immediate-release furosemide 80 mg tablet 80 mg PO BID 05/24/22 11/09/24 History doxazosin 8 mg tablet 8 mg PO DAILY 06/09/22 11/09/24 History biotin 10,000 mcg capsule 10,000 mcg PO DAILY 08/02/22 11/09/24 History multivitamin and minerals 1 tablet PO DAILY 09/12/22 11/09/24 History no.11-folic acid 5 mg tablet (Dialyvite 5000) atorvastatin 20 mg tablet 20 mg PO DAILY #90 tabs 02/08/24 11/09/24 Rx carvedilol 25 mg tablet 25 mg PO BID #60 tabs 05/09/24 11/09/24 Rx diltiazem HCl 120 mg See Rx Instructions .Route 08/23/24 11/09/24 Rx capsule,extended release 24 hr .COMPLEX #90 caps prednisone 5 mg tablet 5 mg PO DAILY 11/13/24 11/13/24 History Current Medications: Active Medications Acetaminophen (Acetaminophen 325 Mg Tablet) 650 mg PO Q4H PRN PRN Reason: Mild Pain (1-3) or Fever Last Admin: 11/13/24 07:46 Dose: 650 mg Carvedilol (Carvedilol 25 Mg Tablet) 25 mg PO Q12HR MARIANO Last Admin: 11/22/24 09:14 Dose: 25 mg Clonidine HCl (Clonidine Hcl 0.1 Mg Tablet) 0.1 mg PO Q8HR PRN PRN Reason: systolic bp above 180 Doxazosin Mesylate (Doxazosin Mesylate 4 Mg Tablet) 8 mg PO DAILY [facility] Last Admin: 11/22/24 09:14 Dose: 8 mg Epoetin Denzel-epbx (Epoetin Denzel-Epbx 10,000 Units/Ml Vial) 10,000 units IV PUSH ONCE ONE Stop: 11/22/24 18:43 Furosemide (Furosemide 80 Mg Tablet) 80 mg PO Q12HR [facility] Last Admin: 11/22/24 09:16 Dose: Not Given Albumin Human (Albutein) 50 mls @ 999 mls/hr IVPB Q10M PRN PRN Reason: HYPOTENSION Stop: 12/10/24 10:20 Daptomycin 700 mg/ Sodium (Chloride) 50 mls @ 100 mls/hr IVPB Q48HR [facility] Stop: 12/27/24 09:29 Last Admin: 11/19/24 15:05 Dose: 100 mls/hr Nifedipine (Nifedipine 30 Mg Tab.Er.24) 60 mg PO QAM [facility] Last Admin: 11/22/24 09:13 Dose: 60 mg Ondansetron HCl (Ondansetron Inj 4 Mg/2 Ml Vial) 4 mg IV PUSH Q6H PRN PRN Reason: Nausea And Vomiting Prednisone (Prednisone 5 Mg Tablet) 5 mg PO DAILY@0800 [facility] Last Admin: 11/22/24 09:14 Dose: 5 mg Tacrolimus (Tacrolimus 0.5 Mg Capsule) 1 mg BY MOUTH Q12HR [facility] Last Admin: 11/22/24 09:14 Dose: 1 mg Vitamin D (Cholecalciferol 1,000 Units Tablet) 2,000 units PO DAILY [facility] Last Admin: 11/22/24 09:13 Dose: 2,000 units Sedation/Anesthesia: No previous sedation/anesthesia problems (including family history). [facility] Past Medical History Medical History Chronic lupus nephritis Colon polyps Diarrhea Rectal bleeding History of kidney disease Allergies Screening mammogram, encounter for Dialysis patient renal failure History of endometrial biopsy (~01/23/16) menometrorrhagia Anemia Trichomonas vaginalis (TV) infection (05/04/16) High cholesterol HPV in female Abnormal Pap smear of cervix 07/14/15 lgsil ; 05/08/14 lgsil; 10/16/12 ASCUS / +HPV Hx of blood clots (~12/2012) 3 rt leg, 2 rt arm History of 2019 novel coronavirus disease (COVID-19) Chronic kidney disease, stage 5, kidney failure Glomerular disorders in diseases classified elsewhere Hypertensive chronic kidney disease with stage 1 through stage 4 chronic kidney disease, or unspecified chronic kidney disease Intractable migraine without aura and without status migrainosus Surgical History Surgical History History of total hysterectomy February 2017 History of elective x2 History of robot-assisted laparoscopic hysterectomy RA TLH w/RSO--HGSIL, ovarian cyst, leiomyoma H/O LEEP 12/31/15 HGSIL TRAVIS II History of dilation and curettage (08/03/15) hscope d&c/Novasure endometrial ablation History of endometrial ablation (08/03/15) hscope d&c/Novasure endometrial ablation History of left salpingo-oophorectomy (08/31/15) EXP LAP, LSO, ADHESIOLYSIS left dermoid cyst, left & right hydrosalpinx History of colposcopy with cervical biopsy 12/13/12 TRAVIS I 09/02/15 TRAVIS II 12/09/15 HGSIL History of ovarian cystectomy (07/11/07) EXP LAP; RIGHT OVARIAN CYSTECTOMY, R PARTIAL SALPINGECTOMY - R Ovarian Cyst, R hydrosalpinx History of laparoscopy (03/23/05) dx lap, chromopertubation - bilateral salpinx, pelvic adhesions, left ovarian enlargement, bilaterally blocked fallopian tubes Kidney transplant recipient (~08/2019) Family History Family History Mother Hypertension Father Family history of type 2 diabetes mellitus Family history of heart disease in male family member before age 55 Cerebrovascular accident Hypertension Diabetes mellitus Other Cancer Diabetes mellitus Hypertension Family history of heart disease in male family member before age 55 Social History Social History Smoking status: Never smoker Second hand tobacco smoke exposure: Yes Alcohol intake: never Substance use: never Substance use type: does not use Do You Feel Safe in your Home?: Yes Lack of Transportation: No Lack of Food: Never True Current Housing: I Have Housing Concerned About Future Housing: No Difficulty Paying Gas/Electric Bills: No Difficulty Paying for Meds: No Currently Unemployed: No Education: Decline to Answer Difficulty w/ Childcare or Family Care: Decline to Answer Living arrangements: alone Additional living arrangements comments: Occupation/Education: occupation 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 [employer] Gender identity (if verbalized by the patient): Female Sexual Orientation (if Verbalized by the Patient): Straight or Heterosexual Spiritual care concerns: No Mod Sed Physical Exam Physical Exam Pre Procedural Exam: Normal: Appearance, Lungs, Heart Rate, Heart Rhythm, Neuro Exam, Abdomen, Extremities and Skin Hours since solid foods: 12 Hours since liquid intake: 8 Mallampati Classification: class II Internal Medicine - PN: Obj Da Vital Signs Vital Signs: Vital Signs - 24 hr 11/21/24 14:00 11/21/24 19:45 11/21/24 20:00 Temperature 36.7 C 36.3 C L Pulse Rate 76 82 Respiratory Rate 20 12 Blood Pressure 121/67 130/73 Pulse Oximetry 100 100 Oxygen Delivery Room Air Oxygen Flow Rate 11/21/24 21:15 11/22/24 12:10 11/22/24 12:15 Temperature Pulse Rate 82 73 78 Respiratory Rate 15 18 Blood Pressure 150/76 H 161/86 H Pulse Oximetry 100 100 Oxygen Delivery Nasal Cannula Nasal Cannula Oxygen Flow Rate 2 2 11/22/24 12:20 11/22/24 12:25 Temperature Pulse Rate 79 70 Respiratory Rate 17 12 Blood Pressure 167/86 H 148/79 H Pulse Oximetry 100 100 Oxygen Delivery Nasal Cannula Nasal Cannula Oxygen Flow Rate 2 2 Intake/Output Intake/Output: Intake & Output 11/19/24 11/20/24 11/21/24 11/22/24 23:59 23:59 23:59 23:59 Intake Total 2298 1870 1440 Output Total 100 2300 Balance 2198 -430 1440 Meds/Results Medications: Active Medications Generic Name Dose Route Start Last Admin Trade Name Freq PRN Reason Stop Dose Admin Acetaminophen 650 mg 11/08/24 22:54 11/13/24 07:46 Acetaminophen 325 Mg Tablet PO 650 mg Q4H PRN Administration Mild Pain (1-3) or Fever Carvedilol 25 mg 11/10/24 21:00 11/22/24 09:14 Carvedilol 25 Mg Tablet PO 25 mg Q12HR MARIANO Administration Clonidine HCl 0.1 mg 11/20/24 16:22 Clonidine Hcl 0.1 Mg Tablet PO Q8HR PRN systolic bp above 180 Doxazosin Mesylate 8 mg 11/09/24 09:00 11/22/24 09:14 Doxazosin Mesylate 4 Mg Tablet PO 8 mg DAILY MARIANO Administration Epoetin Denzel-epbx 10,000 units 11/22/24 18:42 Epoetin Denzel-Epbx 10,000 Units/Ml Vial IV PUSH 11/22/24 18:43 ONCE ONE Furosemide 80 mg 11/19/24 21:00 11/22/24 09:16 Furosemide 80 Mg Tablet PO Not Given Q12HR MARIANO Albumin Human 50 mls @ 999 mls/hr 11/10/24 10:21 Albutein IVPB 12/10/24 10:20 Q10M PRN HYPOTENSION Daptomycin 700 mg/ Sodium 50 mls @ 100 mls/hr 11/21/24 15:00 11/19/24 15:05 Chloride IVPB 12/27/24 09:29 100 mls/hr Q48HR MARIANO Administration Nifedipine 60 mg 11/20/24 16:24 11/22/24 09:13 Nifedipine 30 Mg Tab.Er.24 PO 60 mg QAM MARIANO Administration Ondansetron HCl 4 mg 11/09/24 08:12 Ondansetron Inj 4 Mg/2 Ml Vial IV PUSH Q6H PRN Nausea And Vomiting Prednisone 5 mg 11/13/24 14:20 11/22/24 09:14 Prednisone 5 Mg Tablet PO 5 mg DAILY@0800 MARIANO Administration Tacrolimus 1 mg 11/09/24 10:00 11/22/24 09:14 Tacrolimus 0.5 Mg Capsule BY MOUTH 1 mg Q12HR MARIANO Administration Vitamin D 2,000 units 11/09/24 09:00 11/22/24 09:13 Cholecalciferol 1,000 Units Tablet PO 2,000 units DAILY MARIANO Administration Radiology Results: ITS Impressions Chest X-Ray 11/08/24 15:37 IMPRESSION: No acute cardiopulmonary process. Hip/Pelvis X-Ray 11/08/24 20:28 IMPRESSION: No acute osseous finding in the pelvis or left hip. Abdomen Ultrasound 11/10/24 13:32 IMPRESSION: Prominent atrophy and increased echogenicity of the kidneys, consistent with chronic renal medical disease; no evidence of obstructive uropathy Renal cysts Spleen measures 13 cm length, within upper limits of normal (up to 14 cm) Labs 11/22/24 06:10 11/22/24 06:10 Labs: Laboratory Results - last 24 hr 11/15/24 11/22/24 05:53 06:10 WBC 4.3 L RBC 3.38 L Hgb 9.8 L Hct 32.4 L MCV 95.9 MCH 29.0 MCHC 30.2 L RDW 17.6 H Plt Count 165 MPV 9.7 Immature Gran % (Auto) 0.5 Neut % (Auto) 66.2 Lymph % (Auto) 21.5 [place] % (Auto) 10.9 H Eos % (Auto) 0.7 Baso % (Auto) 0.2 Lymph # (Auto) 0.93 [place] # (Auto) 0.5 Eos # (Auto) 0.0 Baso # (Auto) 0.0 Abs Immat Gran (auto) 0.02 Absolute Neuts (auto) 2.9 Absolute Nucleated RBC 0.000 Nucleated RBC % 0.0 Sodium 135 L Potassium 5.0 Chloride 102 Carbon Dioxide 29 Anion Gap 4 BUN 16 Creatinine 4.49 H Estim Creat Clear Calc 11 Estimated GFR 12 L Glucose 78 Calcium 8.3 L Phosphorus 2.6 Magnesium 2.5 H Total Creatine Kinase < 20 L Albumin 2.9 L Aldosterone <1 ASA Classification/Sedation ASA Classification/Sedation ASA Class: III Emergent: No Risks: Risks, benefits and alternatives explained and patient/family accepted plan for sedation. Patient re-evaluated immediately prior to sedation.
--- NOTE | 2024-11-22 12:30 | WPDTEECHO ---
KALEN TransEsophageal Echocardiogram Date of procedure: 11/22/24 Procedure Type: Date Of Procedure: 11/22/2024 Brief History Of Present Illness: Patient is a pleasant 54 year old female who is referred for KALEN for evaluation of infective endocarditis. Procedure In Detail: After verbal and written informed consent was obtained, the patient risks, benefits, and alternatives explained in detail. The patient agreed to proceed with the plan of care as outlined above.?The patient was evaluated at bedside in the [facility] procedure room.?The posterior oropharynx, neck, and jaw angle all within normal limits on examination. Lungs were clear to auscultation. See pre-sedation note for further details. The patient was then placed in the appropriate 30 to 45 degree angle supine position at a slight left lateral decubitus position.?Patient was monitored throughout the study with telemetry, oxygen saturation, end-tidal CO2 monitoring, blood pressure, heart rate, and respirations.?The posterior hypopharynx was then locally anesthetized using repeated administration of Hurricaine spray as well as gargled viscous lidocaine. After local anesthetic of the posterior hypopharynx was achieved and the oral bite block placed, moderate sedation was administered.?After confirmation of adequate moderate sedation, the transesophageal echocardiogram probe was advanced through the oral bite block into the posterior hypopharynx and into the esophagus easily and without complication.?Multiple, multiplanar echocardiographic images were obtained in multiple standard re-projections.?Continuous-wave, and color-flow Doppler were utilized in conjunction with this study.?At the conclusion of the study, the transesophageal echocardiogram probe was removed easily and without complication. The patient tolerated the procedure well without difficulty.?Patient was in sinus rhythm throughout the study. Moderate Sedation / Anesthesia Administration: Procedure / sedation start time: 12:11 Procedure / sedation end time: 12:26 Total procedure time: 15 minutes Total of IV Versed 2mg and Fentanyl 100mg was administered by RN. FINDINGS: LEFT VENTRICLE: Size and systolic function were within normal limits. RIGHT VENTRICLE:?Size and systolic function within normal limits. LEFT ATRIUM: Normal size. RIGHT ATRIUM: Normal size. INTERATRIAL SEPTUM: Interatrial septum is anatomically normal without evidence of shunt with color-flow Doppler. MITRAL VALVE: There is a mobile mass on the anterior leaflet of the mitral valve, likely vegetation. Mass measures 0.8cm by 0.7cm. There is moderate mitral regurgitation. AORTIC VALVE: Trileaflet. No regurgitation. No vegetation. TRICUSPID VALVE: The tricuspid valve is anatomically normal with normal leaflet excursion. No vegetation. PULMONIC VALVE: Grossly normal. No vegetation. LEFT ATRIAL APPENDAGE: Anatomically normal structure with prominent pectinate muscles without thrombus or vegetation identified. PERICARDIUM: The pericardium was anatomically normal without significant pericardial effusion. ? Complications: None CONCLUSION: Infective endocarditis. Vegetation on the anterior mitral valve leaflet measuring approximately 0.8cm x 0.7cm. Moderate mitral regurgitation. Recommend Infectious Disease consultation and CT Surgery consultation.
--- NOTE | 2024-11-22 13:02 | PM.PNCARD ---
Progress Note: A&P Assessment and Plan (1) Infective endocarditis: Code(s): 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 Status: Acute (2) Mixed hyperlipidemia: Code(s): E78.2 - Mixed hyperlipidemia Status: Acute (3) Essential (primary) hypertension: Code(s): I10 - Essential (primary) hypertension Status: Chronic (4) End stage renal disease: Code(s): N18.6 - End stage renal disease Status: Chronic (5) Dialysis patient: Code(s): Z99.2 - Dependence on renal dialysis Status: Acute Plan Assessment: -Infective endocarditis-0.7 cm vegetation on anterior mitral leaflet with moderate mitral regurgitation on KALEN, no paravalvular extension, no abscess -Sepsis secondary to bacteremia with Enterococcus faecalis on daptomycin; most recent blood cultures negative -Hypertension -Hyperlipidemia -End-stage renal disease on dialysis -Acute on chronic anemia with hemoglobin corrected to greater than 8 Plan: -KALEN was done today and showed a slightly larger vegetation of 0.8 cm on the anterior mitral leaflet with slightly worse mitral regurgitation severe TI of moderate MR. Given size of vegetation less than 1 cm, no significant valvular dysfunction, no paravalvular extension, no abscess- recommend medical treatment of infective endocarditis with antibiotics for Enterococcus faecalis -Recommend ID consultation for choice of antibiotic therapy and duration. Patient will be transferred to [facility] for ID and CT surgery consultations -Continue Coreg, nifedipine -Continue statin -Continue Lasix -Management of other medical problems per primary team Thank you for allowing us to participate in the care of this patient. Please call Cardiology for any questions. Subjective Date/time seen: 11/22/24 13:02 Interval history: Reason for encounter: Infective endocarditis with anterior mitral leaflet vegetation Interval history: Patient denies any chest pain, shortness of breath, dizziness, lightheadedness, nausea, emesis, abdominal pain, headache. KALEN shows a vegetation on the anterior mitral valve leaflet measuring approximately 0.8cm x 0.7cm and moderate mitral regurgitation. Review of Systems Review of Systems: A complete review of systems was performed and negative other than those mentioned in HPI Exam Narrative: General: Alert oriented x3, no acute distress Neck: Supple, JVD + Chest: Bilaterally clear to auscultation, no rales or rhonchi Cardiac: S1, S2 +, regular rate, regular rhythm, no murmurs or rubs Extremities: No pedal edema, no skin rash Neurologic: Alert and oriented x3, no focal neurological deficits Objective Data Vital Signs Vital Signs: Vital Signs - 24 hr 11/21/24 14:00 11/21/24 19:45 11/21/24 20:00 Temperature 36.7 C 36.3 C L Pulse Rate 76 82 Respiratory Rate 20 12 Blood Pressure 121/67 130/73 Pulse Oximetry 100 100 Oxygen Delivery Room Air Oxygen Flow Rate 11/21/24 21:15 11/22/24 12:10 11/22/24 12:15 Temperature Pulse Rate 82 73 78 Respiratory Rate 15 18 Blood Pressure 150/76 H 161/86 H Pulse Oximetry 100 100 Oxygen Delivery Nasal Cannula Nasal Cannula Oxygen Flow Rate 2 2 11/22/24 12:20 11/22/24 12:25 11/22/24 12:30 Temperature Pulse Rate 79 70 71 Respiratory Rate 17 12 13 Blood Pressure 167/86 H 148/79 H 138/78 Pulse Oximetry 100 100 99 Oxygen Delivery Nasal Cannula Nasal Cannula Nasal Cannula Oxygen Flow Rate 2 2 2 11/22/24 12:45 11/22/24 13:00 Temperature Pulse Rate 65 66 Respiratory Rate 14 12 Blood Pressure 147/76 H 141/74 H Pulse Oximetry 100 97 Oxygen Delivery Nasal Cannula Room Air Oxygen Flow Rate 2 Intake/Output Intake/Output: Intake & Output 11/19/24 11/20/24 11/21/24 11/22/24 23:59 23:59 23:59 23:59 Intake Total 2298 1870 1440 Output Total 100 2300 Balance 2198 -430 1440 Meds/Results Medications: Active Medications Generic Name Dose Route Start Last Admin Trade Name Edwinq PRN Reason Stop Dose Admin Acetaminophen 650 mg 11/08/24 22:54 11/13/24 07:46 Acetaminophen 325 Mg Tablet PO 650 mg Q4H PRN Administration Mild Pain (1-3) or Fever Carvedilol 25 mg 11/10/24 21:00 11/22/24 09:14 Carvedilol 25 Mg Tablet PO 25 mg Q12HR MARIANO Administration Clonidine HCl 0.1 mg 11/20/24 16:22 Clonidine Hcl 0.1 Mg Tablet PO Q8HR PRN systolic bp above 180 Doxazosin Mesylate 8 mg 11/09/24 09:00 11/22/24 09:14 Doxazosin Mesylate 4 Mg Tablet PO 8 mg DAILY MARIANO Administration Epoetin Denzel-epbx 10,000 units 11/22/24 18:42 Epoetin Denzel-Epbx 10,000 Units/Ml Vial IV PUSH 11/22/24 18:43 ONCE ONE Furosemide 80 mg 11/19/24 21:00 11/22/24 09:16 Furosemide 80 Mg Tablet PO Not Given Q12HR MARIANO Albumin Human 50 mls @ 999 mls/hr 11/10/24 10:21 Albutein IVPB 12/10/24 10:20 Q10M PRN HYPOTENSION Daptomycin 700 mg/ Sodium 50 mls @ 100 mls/hr 11/21/24 15:00 11/19/24 15:05 Chloride IVPB 12/27/24 09:29 100 mls/hr Q48HR MARIANO Administration Nifedipine 60 mg 11/20/24 16:24 11/22/24 09:13 Nifedipine 30 Mg Tab.Er.24 PO 60 mg QAM MARIANO Administration Ondansetron HCl 4 mg 11/09/24 08:12 Ondansetron Inj 4 Mg/2 Ml Vial IV PUSH Q6H PRN Nausea And Vomiting Prednisone 5 mg 11/13/24 14:20 11/22/24 09:14 Prednisone 5 Mg Tablet PO 5 mg DAILY@0800 MARIANO Administration Tacrolimus 1 mg 11/09/24 10:00 11/22/24 09:14 Tacrolimus 0.5 Mg Capsule BY MOUTH 1 mg Q12HR MARIANO Administration Vitamin D 2,000 units 11/09/24 09:00 11/22/24 09:13 Cholecalciferol 1,000 Units Tablet PO 2,000 units DAILY MARIANO Administration Radiology Results: ITS Impressions Chest X-Ray 11/08/24 15:37 IMPRESSION: No acute cardiopulmonary process. Hip/Pelvis X-Ray 11/08/24 20:28 IMPRESSION: No acute osseous finding in the pelvis or left hip. Abdomen Ultrasound 11/10/24 13:32 IMPRESSION: Prominent atrophy and increased echogenicity of the kidneys, consistent with chronic renal medical disease; no evidence of obstructive uropathy Renal cysts Spleen measures 13 cm length, within upper limits of normal (up to 14 cm) Labs Labs: Laboratory Results - last 24 hr 11/15/24 11/22/24 05:53 06:10 WBC 4.3 L RBC 3.38 L Hgb 9.8 L Hct 32.4 L MCV 95.9 MCH 29.0 MCHC 30.2 L RDW 17.6 H Plt Count 165 MPV 9.7 Immature Gran % (Auto) 0.5 Neut % (Auto) 66.2 Lymph % (Auto) 21.5 [place] % (Auto) 10.9 H Eos % (Auto) 0.7 Baso % (Auto) 0.2 Lymph # (Auto) 0.93 [place] # (Auto) 0.5 Eos # (Auto) 0.0 Baso # (Auto) 0.0 Abs Immat Gran (auto) 0.02 Absolute Neuts (auto) 2.9 Absolute Nucleated RBC 0.000 Nucleated RBC % 0.0 Sodium 135 L Potassium 5.0 Chloride 102 Carbon Dioxide 29 Anion Gap 4 BUN 16 Creatinine 4.49 H Estim Creat Clear Calc 11 Estimated GFR 12 L Glucose 78 Calcium 8.3 L Phosphorus 2.6 Magnesium 2.5 H Total Creatine Kinase < 20 L Albumin 2.9 L Aldosterone <1
--- NOTE | 2024-11-22 14:19 | P.PNIM_ITS ---
Progress Note: A&P Assessment and Plan (1) UTI (urinary tract infection): Code(s): N39.0 - Urinary tract infection, site not specified Status: Acute (2) Anemia in chronic kidney disease: Code(s): N18.9 - Chronic kidney disease, unspecified; D63.1 - Anemia in chronic kidney disease Status: Acute (3) Essential (primary) hypertension: Code(s): I10 - Essential (primary) hypertension Status: Chronic (4) Dialysis patient: Code(s): Z99.2 - Dependence on renal dialysis Status: Acute (5) Immunosuppression: Code(s): D89.9 - Disorder involving the immune mechanism, unspecified Status: Acute (6) Chronic lupus nephritis: Code(s): M32.14 - Glomerular disease in systemic lupus erythematosus Status: Acute (7) Infective endocarditis: Code(s): 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 Status: Acute Plan This is a 54-year-old female with past medical history significant for lupus nephritis, end-stage renal disease on hemodialysis, failed kidney transplant, anemia of chronic disease. Patient dialyzes 3 times a week comes to the emergency room due to episode of fever, patient denies any cough, nausea, vomiting, has been in her usual state of health up until this point. Preliminary workup in emergency room was significant for hemoglobin of 6.3, a urinalysis was significant for numerous WBCs present. # Sepsis # Fever, possible resulting from UTI, infective endocarditis and bacteremia Patient tested negative for COVID RSV and flu. Chest x-ray with no acute cardiopulmonary disease. UA positive for UTI EKG did not show any acute ST-T changes. 2x Blood culture grow Enterococcus faecalis. Urinalysis does note evidence of UTI. Urine culture grows Enterococcus echo report: 1. Complete two-dimensional, color flow and Doppler transthoracic echocardiogram is performed. 2. Left ventricular chamber dimension is normal. 3. Left ventricular systolic function is normal, estimated at 65-70%. 4. There is moderate concentric increased left ventricular wall thickness. 5. The left ventricular diastolic function is grade I diastolic dysfunction. 6. E/e' 20 is elevated. 7. Global longitudinal strain is normal at -19.2%. 8. There is trace aortic valve regurgitation. 9. There is mild mitral valve regurgitation. 10. Small mobile echogenic mass measuring 0.5 cm attached to anterior mitral valve leaflet suggestive of vegetation. 11. There is mild tricuspid valve regurgitation. 12. No pulmonary hypertension, estimated pulmonary arterial systolic pressure is 32 mmHg. 13. There is trace pulmonic regurgitation. repeat BCX on 11/14 no growth so far Infective endocarditis and bacteremia Patient on levofloxacin and vancomycin. Discontinue Levaquin, continue vancomycin Dosing per pharmacist Repeat blood culture 11/09 and are positive of enterococcus TTE: Small mobile echogenic mass measuring 0.5 cm attached to anterior mitral valve leaflet suggestive of vegetation. 11/14The 3rd set for blood culture has no growth so far Changed to daptomycin IV after discussed with ID pharmacist 11/15 continue daptomycin iv (The [place] [employer] (AHA) guidelines recommend that antimicrobial therapy for infective endocarditis should be continued for a prolonged course, typically 4 to 6 weeks, after blood cultures have turned negative) Cardiology consulted. Ravi 11/02/2024 with mobile mass on the anterior leaflet of the mitral valve measuring 0.8 cm x 0.7 cm with moderate mitral regurgitation. Cardiology recommends ID consultation and CT surgery consultation. # Severe anemia Denies any active bleeding no blood in stool or urine. She is status post complete hysterectomy. Last colonoscopy in July 2024 was unremarkable. She has been feeling generally weak and also short of breath. She has been having intermittent fever for several weeks now. On arrival to the ED see was borderline febrile with a temperature of 37.9?. Otherwise vitals were stable except for elevated blood pressure. Laboratory studies showed CBC with hemoglobin of 6.3. received 2 units of packed red blood cell transfusion overnight. Her post transfusion hemoglobin is 8.9. and remains stable. occult blood stool negative. Possible due to end-stage renal disease consult horticultural agent for evaluation treatment # End-stage renal disease, hypokalemia Chem panel was unremarkable except for underlying CKD and low potassium of 2.7. Management per horticultural agent # UTI see above # History of lupus nephritis status post kidney transplant failed and back on dialysis again # Colon polyps Diarrhea intermittent reported. Will get stool studies # History of DVT in 2012 # Migraine # Hypertension # DVT prophylaxis SCDs # Code status full code Transfer To [facility] planned who has accepted the patient. Patient needs to go to [facility] for further treatment and evaluation with CT surgery and Infectious Disease Subjective Date/time seen: 11/22/24 14:19 Interval history: Patient feels well. No new complaints. She was going for a RAVI today. Remains afebrile. Review of Systems Review of Systems: All systems reviewed & are unremarkable except as noted in HPI and below Exam Narrative: GENERAL: Pleasant, in no acute distress. Well-nourished. - EYES: EOMI. Anicteric. - HENT: Moist mucous membranes. - LUNGS: Clear to auscultation bilateral ly, no wheezing, rhonchi, or rales. - CARDIOVASCULAR: Regular rate and rhyth m. No murmur. No JVD. - ABDOMEN: Soft, non-tender and non-dist ended. No palpable masses. - EXTREMITIES: No edema. Peripheral puls es 2+. Non-tender. - NEUROLOGIC: No focal neurological defi cits. CN II-XII grossly intact. - PSYCHIATRIC: Awake, Alert and oriented x 3. Appropriate mood and affect. General weakness - SKIN: No rashes or lesions. Warm. - LYMPH: No cervical lymphadenopathy. Objective Data Vital Signs Vital Signs: Vital Signs - 24 hr 11/21/24 19:45 11/21/24 20:00 11/21/24 21:15 Temperature 97.4 F L Pulse Rate 82 82 Respiratory Rate 12 Blood Pressure 130/73 Pulse Oximetry 100 Oxygen Delivery Room Air Oxygen Flow Rate 11/22/24 12:10 11/22/24 12:15 11/22/24 12:20 Temperature Pulse Rate 73 78 79 Respiratory Rate 15 18 17 Blood Pressure 150/76 H 161/86 H 167/86 H Pulse Oximetry 100 100 100 Oxygen Delivery Nasal Cannula Nasal Cannula Nasal Cannula Oxygen Flow Rate 2 2 2 11/22/24 12:25 11/22/24 12:30 11/22/24 12:45 Temperature Pulse Rate 70 71 65 Respiratory Rate 12 13 14 Blood Pressure 148/79 H 138/78 147/76 H Pulse Oximetry 100 99 100 Oxygen Delivery Nasal Cannula Nasal Cannula Nasal Cannula Oxygen Flow Rate 2 2 2 11/22/24 13:00 Temperature Pulse Rate 66 Respiratory Rate 12 Blood Pressure 141/74 H Pulse Oximetry 97 Oxygen Delivery Room Air Oxygen Flow Rate Intake/Output Intake/Output: Intake & Output 11/19/24 11/20/24 11/21/24 11/22/24 23:59 23:59 23:59 23:59 Intake Total 2298 1870 1440 Output Total 100 2300 Balance 2198 -430 1440 Meds/Results Medications: Active Medications Generic Name Dose Route Start Last Admin Trade Name Edwinq PRN Reason Stop Dose Admin Acetaminophen 650 mg 11/08/24 22:54 11/13/24 07:46 Acetaminophen 325 Mg Tablet PO 650 mg Q4H PRN Administration Mild Pain (1-3) or Fever Carvedilol 25 mg 11/10/24 21:00 11/22/24 09:14 Carvedilol 25 Mg Tablet PO 25 mg Q12HR MARIANO Administration Clonidine HCl 0.1 mg 11/20/24 16:22 Clonidine Hcl 0.1 Mg Tablet PO Q8HR PRN systolic bp above 180 Doxazosin Mesylate 8 mg 11/09/24 09:00 11/22/24 09:14 Doxazosin Mesylate 4 Mg Tablet PO 8 mg DAILY MARIANO Administration Epoetin Denzel-epbx 10,000 units 11/22/24 18:42 Epoetin Denzel-Epbx 10,000 Units/Ml Vial IV PUSH 11/22/24 18:43 ONCE ONE Furosemide 80 mg 11/19/24 21:00 11/22/24 09:16 Furosemide 80 Mg Tablet PO Not Given Q12HR [facility] Albumin Human 50 mls @ 999 mls/hr 11/10/24 10:21 Albutein IVPB 12/10/24 10:20 Q10M PRN HYPOTENSION Daptomycin 700 mg/ Sodium 50 mls @ 100 mls/hr 11/21/24 15:00 11/19/24 15:05 Chloride IVPB 12/27/24 09:29 100 mls/hr Q48HR MARIANO Administration Nifedipine 60 mg 11/20/24 16:24 11/22/24 09:13 Nifedipine 30 Mg Tab.Er.24 PO 60 mg QAM MARIANO Administration Ondansetron HCl 4 mg 11/09/24 08:12 Ondansetron Inj 4 Mg/2 Ml Vial IV PUSH Q6H PRN Nausea And Vomiting Prednisone 5 mg 11/13/24 14:20 11/22/24 09:14 Prednisone 5 Mg Tablet PO 5 mg DAILY@0800 MARIANO Administration Tacrolimus 1 mg 11/09/24 10:00 11/22/24 09:14 Tacrolimus 0.5 Mg Capsule BY MOUTH 1 mg Q12HR MARIANO Administration Vitamin D 2,000 units 11/09/24 09:00 11/22/24 09:13 Cholecalciferol 1,000 Units Tablet PO 2,000 units DAILY MARIANO Administration Radiology Results: ITS Impressions Chest X-Ray 11/08/24 15:37 IMPRESSION: No acute cardiopulmonary process. Hip/Pelvis X-Ray 11/08/24 20:28 IMPRESSION: No acute osseous finding in the pelvis or left hip. Abdomen Ultrasound 11/10/24 13:32 IMPRESSION: Prominent atrophy and increased echogenicity of the kidneys, consistent with chronic renal medical disease; no evidence of obstructive uropathy Renal cysts Spleen measures 13 cm length, within upper limits of normal (up to 14 cm) Labs Labs: Laboratory Results - last 24 hr 11/15/24 11/22/24 05:53 06:10 WBC 4.3 L RBC 3.38 L Hgb 9.8 L Hct 32.4 L MCV 95.9 MCH 29.0 MCHC 30.2 L RDW 17.6 H Plt Count 165 MPV 9.7 Immature Gran % (Auto) 0.5 Neut % (Auto) 66.2 Lymph % (Auto) 21.5 [place] % (Auto) 10.9 H Eos % (Auto) 0.7 Baso % (Auto) 0.2 Lymph # (Auto) 0.93 [place] # (Auto) 0.5 Eos # (Auto) 0.0 Baso # (Auto) 0.0 Abs Immat Gran (auto) 0.02 Absolute Neuts (auto) 2.9 Absolute Nucleated RBC 0.000 Nucleated RBC % 0.0 Sodium 135 L Potassium 5.0 Chloride 102 Carbon Dioxide 29 Anion Gap 4 BUN 16 Creatinine 4.49 H Estim Creat Clear Calc 11 Estimated GFR 12 L Glucose 78 Calcium 8.3 L Phosphorus 2.6 Magnesium 2.5 H Total Creatine Kinase < 20 L Albumin 2.9 L Aldosterone <1
--- NOTE | 2024-11-22 15:22 | P.PNNP_ITS ---
Progress Note: A&P Assessment and Plan (1) End stage renal disease: Code(s): N18.6 - End stage renal disease Status: Chronic Assessment and Plan: * HD today * continue outpatient M/W/ dialysis schedule * follow electrolytes, volume status, and clearance (2) Infective endocarditis: Code(s): 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 Status: Acute Assessment and Plan: * as noted by Echo (on 11/11): * left ventricular systolic function is normal, estimated at 65-70% * trace aortic valve regurgitation * mild mitral valve regurgitation * small mobile echogenic mass measuring 0.5 cm attached to anterior mitral valve leaflet suggestive of vegetation * mild tricuspid valve regurgitation * on antibiotics * Cardiology recommendations noted * KALEN results reviewed (on 11/22): * LEFT VENTRICLE: Size and systolic function were within normal limits * INTERATRIAL SEPTUM: Interatrial septum is anatomically normal without evidence of shunt with color-flow Doppler. * MITRAL VALVE: There is a mobile mass on the anterior leaflet of the mitral valve, likely vegetation. Mass measures 0.8cm by 0.7cm. There is moderate mitral regurgitation. * AORTIC VALVE: Trileaflet. No regurgitation. No vegetation. * TRICUSPID VALVE: The tricuspid valve is anatomically normal with normal leaflet excursion. No vegetation. * PULMONIC VALVE: Grossly normal. No vegetation. * LEFT ATRIAL APPENDAGE: Anatomically normal structure with prominent pectinate muscles without thrombus or vegetation identified. * PERICARDIUM: The pericardium was anatomically normal without significant pericardial effusion * still awaiting for transfer to [facility] for CTS and Infectious Disease evaluation (particularly since vegetation size is larger by KALEN) (3) Bacteremia: Code(s): R78.81 - Bacteremia Status: Acute Assessment and Plan: * resolving/resolved * culture results noted: * blood cultures (from 11/09) - Enterococcus faecalis * urine culture (from 11/08) - Enterococcus faecalis * blood culture (from 11/11) - Enterococcus faecalis * blood cultures (from 11/14) - no growth to date * complicated by #2 * this issue may have progressed since on immunosuppression medications (to maintain residual kidney function of transplant kidney) * on antibiotics - presumably for at least 6 weeks (4) Anemia: Code(s): D64.9 - Anemia, unspecified Status: Acute Assessment and Plan: * severity/recurrence out of proportion to blame ESRD alone * H/H doing better currently * s/p PRBC transfusion * suspect possible resistance to PRESTON/Mircera due to #3 (?) * however, her lupus could be contributing as well * low complements noted -- related to #2 (?) * ELLEN and dsDNA-Ab negative * serum and urine immunofixation with IgG kappa monoclonal band * Hem/Onc recommendations noted * Epogen with dialysis * follow trend of H/H (5) UTI (urinary tract infection): Code(s): N39.0 - Urinary tract infection, site not specified Status: Acute Assessment and Plan: * urine culture with Enterococcus (see #3) * on antibiotics (6) Essential (primary) hypertension: Code(s): I10 - Essential (primary) hypertension Status: Chronic Assessment and Plan: * reasonable control at this time * continue current medications * follow trend of hemodynamics (7) Failed kidney transplant: Code(s): T86.12 - Kidney transplant failure Status: Chronic Assessment and Plan: * s/p renal transplantation in 09/14/2019 * transplant failure in March 2021 * restarted on dialysis at that time * remains on tacrolimus and prednisone to maintain residual transplant kidney function (8) Renal osteodystrophy: Code(s): N25.0 - Renal osteodystrophy Status: Acute Assessment and Plan: * low calcium and low phosphorus along with low potassium * liberalized diet * holding phosphate binders Will continue to follow. L Subjective Date/time seen: 11/22/24 15:22 Interval history: Follow-up for end stage renal disease on hemodialysis. Tolerating dialysis treatment at the time of my visit (seen on HD at 3:12PM); resting comfortably when seen; s/p KALEN earlier today with findings noted; no other issues/events overnight or earlier this morning; no apparent distress. Exam 2 Narrative: General: WD/WN female in NAD Heart: normal S1 and S2; no rub Lungs: clear to auscultation Abdomen: soft, nontender, nondistended, positive bowel sounds Extremities: no cyanosis or clubbing; no edema Skin: no rash Objective Data Vital Signs Vital Signs: Vital Signs Temp Pulse Resp BP Pulse Ox O2 Del Method O2 Flow Rate 11/22/24 15:15 71 121/76 11/22/24 15:05 74 127/75 11/22/24 14:53 97.9 F 76 18 136/74 98 11/22/24 14:00 97.8 F 74 18 142/72 H 100 11/22/24 13:00 66 12 141/74 H 97 Room Air 11/22/24 12:45 65 14 147/76 H 100 Nasal Cannula 2 11/22/24 12:30 71 13 138/78 99 Nasal Cannula 2 11/22/24 12:25 70 12 148/79 H 100 Nasal Cannula 2 11/22/24 12:20 79 17 167/86 H 100 Nasal Cannula 2 11/22/24 12:15 78 18 161/86 H 100 Nasal Cannula 2 11/22/24 12:10 73 15 150/76 H 100 Nasal Cannula 2 11/21/24 21:15 82 11/21/24 20:00 Room Air 11/21/24 19:45 97.4 F L 82 12 130/73 100 Intake/Output Intake/Output: Intake & Output 11/19/24 11/20/24 11/21/24 11/22/24 23:59 23:59 23:59 23:59 Intake Total 2298 1870 1440 240 Output Total 100 2300 Balance 2198 -430 1440 240 Meds/Results Medications: Active Medications Generic Name Dose Route Start Last Admin Trade Name Freq PRN Reason Stop Dose Admin Acetaminophen 650 mg 11/08/24 22:54 11/13/24 07:46 Acetaminophen 325 Mg Tablet PO 650 mg Q4H PRN Administration Mild Pain (1-3) or Fever Carvedilol 25 mg 11/10/24 21:00 11/22/24 09:14 Carvedilol 25 Mg Tablet PO 25 mg Q12HR MARIANO Administration Clonidine HCl 0.1 mg 11/20/24 16:22 Clonidine Hcl 0.1 Mg Tablet PO Q8HR PRN systolic bp above 180 Doxazosin Mesylate 8 mg 11/09/24 09:00 11/22/24 09:14 Doxazosin Mesylate 4 Mg Tablet PO 8 mg DAILY MARIANO Administration Epoetin Denzel-epbx 10,000 units 11/22/24 18:42 11/22/24 16:01 Epoetin Denzel-Epbx 10,000 Units/Ml Vial IV PUSH 11/22/24 18:43 10,000 units ONCE ONE Administration Furosemide 80 mg 11/19/24 21:00 11/22/24 09:16 Furosemide 80 Mg Tablet PO Not Given Q12HR MARIANO Albumin Human 50 mls @ 999 mls/hr 11/10/24 10:21 Albutein IVPB 12/10/24 10:20 Q10M PRN HYPOTENSION Daptomycin 700 mg/ Sodium 50 mls @ 100 mls/hr 11/21/24 15:00 11/19/24 15:05 Chloride IVPB 12/27/24 09:29 100 mls/hr Q48HR MARIANO Administration Nifedipine 60 mg 11/20/24 16:24 11/22/24 09:13 Nifedipine 30 Mg Tab.Er.24 PO 60 mg QAM MARIANO Administration Ondansetron HCl 4 mg 11/09/24 08:12 Ondansetron Inj 4 Mg/2 Ml Vial IV PUSH Q6H PRN Nausea And Vomiting Prednisone 5 mg 11/13/24 14:20 11/22/24 09:14 Prednisone 5 Mg Tablet PO 5 mg DAILY@0800 MARIANO Administration Tacrolimus 1 mg 11/09/24 10:00 11/22/24 09:14 Tacrolimus 0.5 Mg Capsule BY MOUTH 1 mg Q12HR MARIANO Administration Vitamin D 2,000 units 11/09/24 09:00 11/22/24 09:13 Cholecalciferol 1,000 Units Tablet PO 2,000 units DAILY MARIANO Administration Radiology Results: ITS Impressions Chest X-Ray 11/08/24 15:37 IMPRESSION: No acute cardiopulmonary process. Hip/Pelvis X-Ray 11/08/24 20:28 IMPRESSION: No acute osseous finding in the pelvis or left hip. Abdomen Ultrasound 11/10/24 13:32 IMPRESSION: Prominent atrophy and increased echogenicity of the kidneys, consistent with chronic renal medical disease; no evidence of obstructive uropathy Renal cysts Spleen measures 13 cm length, within upper limits of normal (up to 14 cm) Labs Labs: Laboratory Tests 11/22/24 06:10 11/22/24 06:10 Calcium 8.3 L Phosphorus 2.6 Magnesium 2.5 H Total Creatine Kinase < 20 L Albumin 2.9 L
[2024-11-22] MEDS: EPOETIN ALFA-EPBX 10,000 UNITS/ML VIAL 10000 UNITS IV PUSH (16:01)
[2024-11-23 05:51] VITALS: BP 170/89; PULSE 75; RESP 16; TEMP 36.4; O2SAT 100
[2024-11-23 06:58] LABS: Basophils Percent Auto 0.5 % (0.2-1.2); Eosinophils Percent Auto 0.5 % (0-4.4); Hematocrit 29.1 % (37.0-47.0); Hemoglobin 8.8 g/dL (12.0-15.0); Immature Granulocyte Absolute 0.01 K/mm3 (0.00-0.031); Immature Granulocyte Percent A 0.2 % (0-0.5); Lymphocytes Absolute Auto 0.99 K/mm3 (0.9-3.2); Lymphocytes Percent Auto 22.5 % (18.3-44.2); Mean Corpuscular HGB Conc 30.2 g/dl (32-36); Mean Corpuscular Hemoglobin 29.3 pg (26-34); Mean Platelet Volume 10.1 fl (7.4-10.4); Monocytes Absolute Auto 0.5 K/mm3 (0.1-0.6); Monocytes Percent Auto 10.9 % (2.6-8.5); Neutrophils Absolute Auto 2.9 K/mm3 (1.3-6.7); Neutrophils Percent Auto 65.4 % (45.5-73.1); Platelet Count Result 167 k/mm3 (150-375); Red Cell Distribution Width 18.1 % (11.5-14.5); White Blood Count 4.4 K/mm3 (4.5-10.0)
[2024-11-23 07:22] LABS: Albumin Level 2.6 g/dL (3.5-5.1); Anion Gap 1 mmol/L (4-12); Blood Urea Nitrogen 7 mg/dL (7-17); Calcium 7.9 mg/dL (8.4-10.2); Carbon Dioxide 31 mmol/L (22-30); Chloride 102 mmol/L (98-107); Estimated CRCL calculation 18 ml/min; Estimated Glomerular Filt Rate 22; Glucose 77 mg/dL (65-110); Magnesium 2.2 mg/dL (1.6-2.3); Phosphorus 2.8 mg/dL (2.5-4.5); Potassium 4.3 mmol/L (3.4-5.0); Sodium 134 mmol/L (137-145)
[2024-11-23] MEDS: DOXAZOSIN MESYLATE 4 MG TABLET 8 MG PO (09:24)
[2024-11-23] MEDS: TACROLIMUS 0.5 MG CAPSULE 1 MG BY MOUTH ×2 (09:24→21:01)
[2024-11-23] MEDS: FUROSEMIDE 80 MG TABLET PO ×2 (09:25→21:01)
[2024-11-23] MEDS: carvediloL 25 MG TABLET PO ×2 (09:25→21:01)
[2024-11-23] MEDS: CHOLECALCIFEROL 1,000 UNITS TABLET 2000 UNITS PO (09:25)
[2024-11-23] MEDS: predniSONE 5 MG TABLET PO (09:25)
[2024-11-23] MEDS: NIFEdipine 30 MG TAB.ER.24 60 MG PO (09:25)
--- NOTE | 2024-11-23 09:58 | PM.IMPN ---
Progress Note: A&P Assessment and Plan (1) UTI (urinary tract infection): Code(s): N39.0 - Urinary tract infection, site not specified Status: Acute (2) Anemia in chronic kidney disease: Code(s): N18.9 - Chronic kidney disease, unspecified; D63.1 - Anemia in chronic kidney disease Status: Acute (3) Essential (primary) hypertension: Code(s): I10 - Essential (primary) hypertension Status: Chronic (4) Dialysis patient: Code(s): Z99.2 - Dependence on renal dialysis Status: Acute (5) Immunosuppression: Code(s): D89.9 - Disorder involving the immune mechanism, unspecified Status: Acute (6) Chronic lupus nephritis: Code(s): M32.14 - Glomerular disease in systemic lupus erythematosus Status: Acute (7) Infective endocarditis: Code(s): 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 Status: Acute Plan This is a 54-year-old female with past medical history significant for lupus nephritis, end-stage renal disease on hemodialysis, failed kidney transplant, anemia of chronic disease. Patient dialyzes 3 times a week comes to the emergency room due to episode of fever, patient denies any cough, nausea, vomiting, has been in her usual state of health up until this point. Preliminary workup in emergency room was significant for hemoglobin of 6.3, a urinalysis was significant for numerous WBCs present. # Sepsis # Fever, possible resulting from UTI, infective endocarditis and bacteremia Patient tested negative for COVID RSV and flu. Chest x-ray with no acute cardiopulmonary disease. UA positive for UTI EKG did not show any acute ST-T changes. 2x Blood culture grow Enterococcus faecalis. Urinalysis does note evidence of UTI. Urine culture grows Enterococcus echo report: 1. Complete two-dimensional, color flow and Doppler transthoracic echocardiogram is performed. 2. Left ventricular chamber dimension is normal. 3. Left ventricular systolic function is normal, estimated at 65-70%. 4. There is moderate concentric increased left ventricular wall thickness. 5. The left ventricular diastolic function is grade I diastolic dysfunction. 6. E/e' 20 is elevated. 7. Global longitudinal strain is normal at -19.2%. 8. There is trace aortic valve regurgitation. 9. There is mild mitral valve regurgitation. 10. Small mobile echogenic mass measuring 0.5 cm attached to anterior mitral valve leaflet suggestive of vegetation. 11. There is mild tricuspid valve regurgitation. 12. No pulmonary hypertension, estimated pulmonary arterial systolic pressure is 32 mmHg. 13. There is trace pulmonic regurgitation. repeat BCX on 11/14 no growth so far Infective endocarditis and bacteremia Patient on levofloxacin and vancomycin. Discontinue Levaquin, continue vancomycin Dosing per pharmacist Repeat blood culture 11/09 and are positive of enterococcus TTE: Small mobile echogenic mass measuring 0.5 cm attached to anterior mitral valve leaflet suggestive of vegetation. 11/14The 3rd set for blood culture has no growth so far Changed to daptomycin IV after discussed with ID pharmacist 11/15 continue daptomycin iv (The [place] [employer] (AHA) guidelines recommend that antimicrobial therapy for infective endocarditis should be continued for a prolonged course, typically 4 to 6 weeks, after blood cultures have turned negative) Cardiology consulted. Ravi 11/02/2024 with mobile mass on the anterior leaflet of the mitral valve measuring 0.8 cm x 0.7 cm with moderate mitral regurgitation. Cardiology recommends ID consultation and CT surgery consultation. Awaiting bed placement at [facility] # Severe anemia Denies any active bleeding no blood in stool or urine. She is status post complete hysterectomy. Last colonoscopy in July 2024 was unremarkable. She has been feeling generally weak and also short of breath. She has been having intermittent fever for several weeks now. On arrival to the ED see was borderline febrile with a temperature of 37.9?. Otherwise vitals were stable except for elevated blood pressure. Laboratory studies showed CBC with hemoglobin of 6.3. received 2 units of packed red blood cell transfusion overnight. Her post transfusion hemoglobin is 8.9. and remains stable. occult blood stool negative. Possible due to end-stage renal disease consult verifier for evaluation treatment # End-stage renal disease, hypokalemia Chem panel was unremarkable except for underlying CKD and low potassium of 2.7. Management per verifier # UTI see above # History of lupus nephritis status post kidney transplant failed and back on dialysis again # Colon polyps Diarrhea intermittent reported. Will get stool studies # History of DVT in 2012 # Migraine # Hypertension # DVT prophylaxis SCDs # Code status full code Transfer To [facility] planned who has accepted the patient. Patient needs to go to [facility] for further treatment and evaluation with CT surgery and Infectious Disease Subjective Date/time seen: 11/23/24 09:58 Interval history: Patient remains afebrile. No new complaints. Review of Systems Review of Systems: All systems reviewed & are unremarkable except as noted in HPI and below Exam Narrative: GENERAL: Pleasant, in no acute distress. Well-nourished. - EYES: EOMI. Anicteric. - HENT: Moist mucous membranes. - LUNGS: Clear to auscultation bilaterally, no wheezing, rhonchi, or rales. - CARDIOVASCULAR: Regular rate and rhythm. No murmur. No JVD. - ABDOMEN: Soft, non-tender and non-distended. No palpable masses. - EXTREMITIES: No edema. Peripheral pulses 2+. Non-tender. - NEUROLOGIC: No focal neurological deficits. CN II-XII grossly intact. - PSYCHIATRIC: Awake, Alert and oriented x 3. Appropriate mood and affect. General weakness - SKIN: No rashes or lesions. Warm. - LYMPH: No cervical lymphadenopathy. Objective Data Vital Signs Vital Signs: Vital Signs - 24 hr 11/22/24 12:10 11/22/24 12:15 11/22/24 12:20 Temperature Pulse Rate 73 78 79 Respiratory Rate 15 18 17 Blood Pressure 150/76 H 161/86 H 167/86 H Pulse Oximetry 100 100 100 Oxygen Delivery Nasal Cannula Nasal Cannula Nasal Cannula Oxygen Flow Rate 2 2 2 Fraction of Inspired Oxygen 11/22/24 12:25 11/22/24 12:30 11/22/24 12:45 Temperature Pulse Rate 70 71 65 Respiratory Rate 12 13 14 Blood Pressure 148/79 H 138/78 147/76 H Pulse Oximetry 100 99 100 Oxygen Delivery Nasal Cannula Nasal Cannula Nasal Cannula Oxygen Flow Rate 2 2 2 Fraction of Inspired Oxygen 11/22/24 13:00 11/22/24 14:00 11/22/24 14:53 Temperature 97.8 F 97.9 F Pulse Rate 66 74 76 Respiratory Rate 12 18 18 Blood Pressure 141/74 H 142/72 H 136/74 Pulse Oximetry 97 100 98 Oxygen Delivery Room Air Oxygen Flow Rate Fraction of Inspired Oxygen 11/22/24 15:05 11/22/24 15:15 11/22/24 15:30 Temperature Pulse Rate 74 71 68 Respiratory Rate Blood Pressure 127/75 121/76 128/74 Pulse Oximetry Oxygen Delivery Oxygen Flow Rate Fraction of Inspired Oxygen 11/22/24 15:45 11/22/24 16:00 11/22/24 16:15 Temperature Pulse Rate 65 66 64 Respiratory Rate Blood Pressure 124/70 126/73 132/76 Pulse Oximetry Oxygen Delivery Oxygen Flow Rate Fraction of Inspired Oxygen 11/22/24 16:30 11/22/24 16:45 11/22/24 17:00 Temperature Pulse Rate 68 69 73 Respiratory Rate Blood Pressure 133/79 136/80 123/73 Pulse Oximetry Oxygen Delivery Oxygen Flow Rate Fraction of Inspired Oxygen 11/22/24 17:15 11/22/24 17:30 11/22/24 17:45 Temperature Pulse Rate 76 74 71 Respiratory Rate Blood Pressure 118/67 126/73 124/74 Pulse Oximetry Oxygen Delivery Oxygen Flow Rate Fraction of Inspired Oxygen 11/22/24 18:00 11/22/24 18:15 11/22/24 18:30 Temperature Pulse Rate 73 77 79 Respiratory Rate Blood Pressure 118/72 122/73 99/73 L Pulse Oximetry Oxygen Delivery Oxygen Flow Rate Fraction of Inspired Oxygen 11/22/24 18:39 11/22/24 19:03 11/22/24 20:00 Temperature 98.2 F Pulse Rate 75 77 77 Respiratory Rate 18 18 Blood Pressure 133/70 125/74 Pulse Oximetry 100 100 Oxygen Delivery Room Air Oxygen Flow Rate Fraction of Inspired Oxygen 0 11/22/24 21:19 11/23/24 05:51 Temperature 97.3 F L 97.6 F Pulse Rate 83 75 Respiratory Rate 16 16 Blood Pressure 116/70 170/89 H Pulse Oximetry 100 100 Oxygen Delivery Oxygen Flow Rate Fraction of Inspired Oxygen Intake/Output Intake/Output: Intake & Output 11/20/24 11/21/24 11/22/24 11/23/24 23:59 23:59 23:59 23:59 Intake Total 1870 1440 240 720 Output Total 2300 2004 [employer] [facility] [phone] Meds/Results Medications: Active Medications Generic Name Dose Route Start Last Admin Trade Name Freq PRN Reason Stop Dose Admin Acetaminophen 650 mg 11/08/24 22:54 11/13/24 07:46 Acetaminophen 325 Mg Tablet PO 650 mg Q4H PRN Administration Mild Pain (1-3) or Fever Carvedilol 25 mg 11/10/24 21:00 11/23/24 09:25 Carvedilol 25 Mg Tablet PO 25 mg Q12HR MARIANO Administration Clonidine HCl 0.1 mg 11/20/24 16:22 Clonidine Hcl 0.1 Mg Tablet PO Q8HR PRN systolic bp above 180 Doxazosin Mesylate 8 mg 11/09/24 09:00 11/23/24 09:24 Doxazosin Mesylate 4 Mg Tablet PO 8 mg DAILY MARIANO Administration Furosemide 80 mg 11/19/24 21:00 11/23/24 09:25 Furosemide 80 Mg Tablet PO 80 mg Q12HR MARIANO Administration Albumin Human 50 mls @ 999 mls/hr 11/10/24 10:21 Albutein IVPB 12/10/24 10:20 Q10M PRN HYPOTENSION Daptomycin 700 mg/ Sodium 50 mls @ 100 mls/hr 11/21/24 15:00 11/19/24 15:05 Chloride IVPB 12/27/24 09:29 100 mls/hr Q48HR AMRIANO Administration Nifedipine 60 mg 11/20/24 16:24 11/23/24 09:25 Nifedipine 30 Mg Tab.Er.24 PO 60 mg QAM MARIANO Administration Ondansetron HCl 4 mg 11/09/24 08:12 Ondansetron Inj 4 Mg/2 Ml Vial IV PUSH Q6H PRN Nausea And Vomiting Prednisone 5 mg 11/13/24 14:20 11/23/24 09:25 Prednisone 5 Mg Tablet PO 5 mg DAILY@0800 MARIANO Administration Tacrolimus 1 mg 11/09/24 10:00 11/23/24 09:24 Tacrolimus 0.5 Mg Capsule BY MOUTH 1 mg Q12HR MARIANO Administration Vitamin D 2,000 units 11/09/24 09:00 11/23/24 09:25 Cholecalciferol 1,000 Units Tablet PO 2,000 units DAILY MARIANO Administration Radiology Results: ITS Impressions Chest X-Ray 11/08/24 15:37 IMPRESSION: No acute cardiopulmonary process. Hip/Pelvis X-Ray 11/08/24 20:28 IMPRESSION: No acute osseous finding in the pelvis or left hip. Abdomen Ultrasound 11/10/24 13:32 IMPRESSION: Prominent atrophy and increased echogenicity of the kidneys, consistent with chronic renal medical disease; no evidence of obstructive uropathy Renal cysts Spleen measures 13 cm length, within upper limits of normal (up to 14 cm) Labs Labs: Laboratory Results - last 24 hr 11/23/24 06:02 WBC 4.4 L RBC 3.00 L Hgb 8.8 L Hct 29.1 L MCV 97.0 MCH 29.3 MCHC 30.2 L RDW 18.1 H Plt Count 167 MPV 10.1 Immature Gran % (Auto) 0.2 Neut % (Auto) 65.4 Lymph % (Auto) 22.5 Gregg % (Auto) 10.9 H Eos % (Auto) 0.5 Baso % (Auto) 0.5 Lymph # (Auto) 0.99 Gregg # (Auto) 0.5 Eos # (Auto) 0.0 Baso # (Auto) 0.0 Abs Immat Gran (auto) 0.01 Absolute Neuts (auto) 2.9 Absolute Nucleated RBC 0.000 Nucleated RBC % 0.0 Sodium 134 L Potassium 4.3 Chloride 102 Carbon Dioxide 31 H Anion Gap 1 L BUN 7 D Creatinine 2.77 H Estim Creat Clear Calc 18 Estimated GFR 22 L Glucose 77 Calcium 7.9 L Phosphorus 2.8 Magnesium 2.2 Albumin 2.6 L
[2024-11-23] MEDS: DAPTOmycin 700 MG in SODIUM CHLORIDE 0.9% IV 50 ML 100 MG IVPB (10:44)
--- NOTE | 2024-11-23 11:15 | P.PNNP_ITS ---
Progress Note: A&P Assessment and Plan (1) End stage renal disease: Code(s): N18.6 - End stage renal disease Status: Chronic Assessment and Plan: * HD yesterday * continue outpatient M/W/ dialysis schedule * follow electrolytes, volume status, and clearance (2) Infective endocarditis: Code(s): 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 Status: Acute Assessment and Plan: * as noted by Echo (on 11/11): * left ventricular systolic function is normal, estimated at 65-70% * trace aortic valve regurgitation * mild mitral valve regurgitation * small mobile echogenic mass measuring 0.5 cm attached to anterior mitral valve leaflet suggestive of vegetation * mild tricuspid valve regurgitation * on antibiotics * Cardiology recommendations noted * KALEN results reviewed (on 11/22): * LEFT VENTRICLE: Size and systolic function were within normal limits * INTERATRIAL SEPTUM: Interatrial septum is anatomically normal without evidence of shunt with color-flow Doppler. * MITRAL VALVE: There is a mobile mass on the anterior leaflet of the mitral valve, likely vegetation. Mass measures 0.8cm by 0.7cm. There is moderate mitral regurgitation. * AORTIC VALVE: Trileaflet. No regurgitation. No vegetation. * TRICUSPID VALVE: The tricuspid valve is anatomically normal with normal leaflet excursion. No vegetation. * PULMONIC VALVE: Grossly normal. No vegetation. * LEFT ATRIAL APPENDAGE: Anatomically normal structure with prominent pectinate muscles without thrombus or vegetation identified. * PERICARDIUM: The pericardium was anatomically normal without significant pericardial effusion * still awaiting for transfer to [facility] for CTS and Infectious Disease evaluation (particularly since vegetation size is larger by KALEN) (3) Bacteremia: Code(s): R78.81 - Bacteremia Status: Acute Assessment and Plan: * resolving/resolved * culture results noted: * blood cultures (from 11/09) - Enterococcus faecalis * urine culture (from 11/08) - Enterococcus faecalis * blood culture (from 11/11) - Enterococcus faecalis * blood cultures (from 11/14) - no growth to date * complicated by #2 * this issue may have progressed since on immunosuppression medications (to maintain residual kidney function of transplant kidney) * on antibiotics - presumably for at least 6 weeks (4) Anemia: Code(s): D64.9 - Anemia, unspecified Status: Acute Assessment and Plan: * severity/recurrence out of proportion to blame ESRD alone * H/H doing better currently * s/p PRBC transfusion * suspect possible resistance to PRESTON/Mircera due to #3 (?) * however, her lupus could be contributing as well * low complements noted -- related to #2 (?) * ELLEN and dsDNA-Ab negative * serum and urine immunofixation with IgG kappa monoclonal band * Hem/Onc recommendations noted * Epogen with dialysis * follow trend of H/H (5) UTI (urinary tract infection): Code(s): N39.0 - Urinary tract infection, site not specified Status: Acute Assessment and Plan: * urine culture with Enterococcus (see #3) * on antibiotics (6) Essential (primary) hypertension: Code(s): I10 - Essential (primary) hypertension Status: Chronic Assessment and Plan: * reasonable control at this time * continue current medications * follow trend of hemodynamics (7) Failed kidney transplant: Code(s): T86.12 - Kidney transplant failure Status: Chronic Assessment and Plan: * s/p renal transplantation in 09/14/2019 * transplant failure in March 2021 * restarted on dialysis at that time * remains on tacrolimus and prednisone to maintain residual transplant kidney function (8) Renal osteodystrophy: Code(s): N25.0 - Renal osteodystrophy Status: Acute Assessment and Plan: * low calcium and low phosphorus along with low potassium * liberalized diet * holding phosphate binders Will continue to follow. L Subjective Date/time seen: 11/23/24 11:15 Interval history: Follow-up for end stage renal disease on hemodialysis. Tolerated hemodialysis treatment as well as KALEN yesterday without any issues or problems; no apparent distress voiced at the time of my visit; no events overnight or earlier this morning; still awaiting transfer to [facility] for further evaluation of infective endocarditis. Exam 2 Narrative: General: WD/WN female in NAD Heart: normal S1 and S2; no rub Lungs: clear to auscultation Abdomen: soft, nontender, nondistended, positive bowel sounds Extremities: no cyanosis or clubbing; no edema Skin: no nodules Objective Data Vital Signs Vital Signs: Vital Signs Temp Pulse Resp BP Pulse Ox O2 Del Method FiO2 11/23/24 05:51 97.6 F 75 16 170/89 H 100 11/22/24 21:19 97.3 F L 83 16 116/70 100 11/22/24 20:00 77 18 100 Room Air 0 11/22/24 19:03 98.2 F 77 18 125/74 100 11/22/24 18:39 75 133/70 11/22/24 18:30 79 99/73 L 11/22/24 18:15 77 122/73 11/22/24 18:00 73 118/72 11/22/24 17:45 71 124/74 11/22/24 17:30 74 126/73 11/22/24 17:15 76 118/67 11/22/24 17:00 73 123/73 11/22/24 16:45 69 136/80 11/22/24 16:30 68 133/79 11/22/24 16:15 64 132/76 11/22/24 16:00 66 126/73 11/22/24 15:45 65 124/70 11/22/24 15:30 68 128/74 11/22/24 15:15 71 121/76 11/22/24 15:05 74 127/75 11/22/24 14:53 97.9 F 76 18 136/74 98 Intake/Output Intake/Output: Intake & Output 11/20/24 11/21/24 11/22/24 11/23/24 23:59 23:59 23:59 23:59 Intake Total 1870 4381 652 8398 Output Total 2300 2004 Balance -430 1440 -1765 1010 Meds/Results Medications: Active Medications Generic Name Dose Route Start Last Admin Trade Name Freq PRN Reason Stop Dose Admin Acetaminophen 650 mg 11/08/24 22:54 11/13/24 07:46 Acetaminophen 325 Mg Tablet PO 650 mg Q4H PRN Administration Mild Pain (1-3) or Fever Carvedilol 25 mg 11/10/24 21:00 11/23/24 09:25 Carvedilol 25 Mg Tablet PO 25 mg Q12HR MARIANO Administration Clonidine HCl 0.1 mg 11/20/24 16:22 Clonidine Hcl 0.1 Mg Tablet PO Q8HR PRN systolic bp above 180 Doxazosin Mesylate 8 mg 11/09/24 09:00 11/23/24 09:24 Doxazosin Mesylate 4 Mg Tablet PO 8 mg DAILY MARIANO Administration Furosemide 80 mg 11/19/24 21:00 11/23/24 09:25 Furosemide 80 Mg Tablet PO 80 mg Q12HR MARIANO Administration Albumin Human 50 mls @ 999 mls/hr 11/10/24 10:21 Albutein IVPB 12/10/24 10:20 Q10M PRN HYPOTENSION Daptomycin 700 mg/ Sodium 50 mls @ 100 mls/hr 11/21/24 15:00 11/23/24 11:14 Chloride IVPB 12/27/24 09:29 Infused Q48HR MARIANO Infusion Nifedipine 60 mg 11/20/24 16:24 11/23/24 09:25 Nifedipine 30 Mg Tab.Er.24 PO 60 mg QAM MARIANO Administration Ondansetron HCl 4 mg 11/09/24 08:12 Ondansetron Inj 4 Mg/2 Ml Vial IV PUSH Q6H PRN Nausea And Vomiting Prednisone 5 mg 11/13/24 14:20 11/23/24 09:25 Prednisone 5 Mg Tablet PO 5 mg DAILY@0800 MARIANO Administration Tacrolimus 1 mg 11/09/24 10:00 11/23/24 09:24 Tacrolimus 0.5 Mg Capsule BY MOUTH 1 mg Q12HR MARIANO Administration Vitamin D 2,000 units 11/09/24 09:00 11/23/24 09:25 Cholecalciferol 1,000 Units Tablet PO 2,000 units DAILY MARIANO Administration Radiology Results: ITS Impressions Chest X-Ray 11/08/24 15:37 IMPRESSION: No acute cardiopulmonary process. Hip/Pelvis X-Ray 11/08/24 20:28 IMPRESSION: No acute osseous finding in the pelvis or left hip. Abdomen Ultrasound 11/10/24 13:32 IMPRESSION: Prominent atrophy and increased echogenicity of the kidneys, consistent with chronic renal medical disease; no evidence of obstructive uropathy Renal cysts Spleen measures 13 cm length, within upper limits of normal (up to 14 cm) Labs Labs: Laboratory Tests 11/23/24 06:02 11/23/24 06:02 Calcium 7.9 L Phosphorus 2.8 Magnesium 2.2 Albumin 2.6 L
[2024-11-23 14:00] VITALS: BP 167/83; PULSE 81; RESP 16; TEMP 36.4; O2SAT 100
[2024-11-23 21:01] VITALS: PULSE 78
[2024-11-23 21:28] VITALS: BP 129/66; PULSE 79; RESP 18; TEMP 36.6; O2SAT 100
[2024-11-24 05:42] VITALS: BP 135/74; PULSE 69; RESP 16; TEMP 36.3; O2SAT 100
[2024-11-24 07:27] LABS: Basophils Percent Auto 0.5 % (0.2-1.2); Eosinophils Percent Auto 0.7 % (0-4.4); Hematocrit 34.2 % (37.0-47.0); Hemoglobin 10.2 g/dL (12.0-15.0); Immature Granulocyte Absolute 0.01 K/mm3 (0.00-0.031); Immature Granulocyte Percent A 0.2 % (0-0.5); Lymphocytes Absolute Auto 0.96 K/mm3 (0.9-3.2); Lymphocytes Percent Auto 22.3 % (18.3-44.2); Mean Corpuscular HGB Conc 29.8 g/dl (32-36); Mean Corpuscular Hemoglobin 28.7 pg (26-34); Mean Corpuscular Volume 96.3 fl (80-100); Mean Platelet Volume 9.7 fl (7.4-10.4); Monocytes Absolute Auto 0.4 K/mm3 (0.1-0.6); Monocytes Percent Auto 9.3 % (2.6-8.5); Neutrophils Absolute Auto 2.9 K/mm3 (1.3-6.7); Platelet Count Result 182 k/mm3 (150-375); Red Blood Count 3.55 M/mm3 (4.2-5.4); Red Cell Distribution Width 17.9 % (11.5-14.5); White Blood Count 4.3 K/mm3 (4.5-10.0)
[2024-11-24 07:45] LABS: Magnesium 2.6 mg/dL (1.6-2.3)
[2024-11-24 08:08] VITALS: PULSE 76
[2024-11-24] MEDS: carvediloL 25 MG TABLET PO ×2 (08:08→20:17)
[2024-11-24] MEDS: FUROSEMIDE 80 MG TABLET PO ×2 (08:08→20:17)
[2024-11-24] MEDS: DOXAZOSIN MESYLATE 4 MG TABLET 8 MG PO (08:08)
[2024-11-24] MEDS: NIFEdipine 30 MG TAB.ER.24 60 MG PO (08:08)
[2024-11-24] MEDS: TACROLIMUS 0.5 MG CAPSULE 1 MG BY MOUTH ×2 (08:08→20:17)
[2024-11-24] MEDS: predniSONE 5 MG TABLET PO (08:08)
[2024-11-24] MEDS: CHOLECALCIFEROL 1,000 UNITS TABLET 2000 UNITS PO (08:08)
[2024-11-24 08:40] LABS: Albumin Level 2.9 g/dL (3.5-5.1); Anion Gap 3 mmol/L (4-12); Blood Urea Nitrogen 17 mg/dL (7-17); Calcium 8.5 mg/dL (8.4-10.2); Carbon Dioxide 27 mmol/L (22-30); Chloride 106 mmol/L (98-107); Estimated CRCL calculation 11 ml/min; Estimated Glomerular Filt Rate 12; Glucose 52 mg/dL (65-110); Phosphorus 2.7 mg/dL (2.5-4.5); Potassium 5.3 mmol/L (3.4-5.0); Sodium 136 mmol/L (137-145)
[2024-11-24 08:52] LABS: Glucose Point of Care 83 mg/dl (65-105)
--- NOTE | 2024-11-24 12:17 | PM.PNNEP ---
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 Status: Acute Assessment and Plan: as noted by Echo (on 11/11): left ventricular systolic function is normal, estimated at 65-70% trace aortic valve regurgitation mild mitral valve regurgitation small mobile echogenic mass measuring 0.5 cm attached to anterior mitral valve leaflet suggestive of vegetation mild tricuspid valve regurgitation on antibiotics Cardiology recommendations noted KALEN results reviewed (on 11/22): LEFT VENTRICLE: Size and systolic function were within normal limits INTERATRIAL SEPTUM: Interatrial septum is anatomically normal without evidence of shunt with color-flow Doppler. MITRAL VALVE: There is a mobile mass on the anterior leaflet of the mitral valve, likely vegetation. Mass measures 0.8cm by 0.7cm. There is moderate mitral regurgitation. AORTIC VALVE: Trileaflet. No regurgitation. No vegetation. TRICUSPID VALVE: The tricuspid valve is anatomically normal with normal leaflet excursion. No vegetation. PULMONIC VALVE: Grossly normal. No vegetation. LEFT ATRIAL APPENDAGE: Anatomically normal structure with prominent pectinate muscles without thrombus or vegetation identified. PERICARDIUM: The pericardium was anatomically normal without significant pericardial effusion still awaiting for transfer for CTS and Infectious Disease evaluation (particularly since vegetation size is larger by KALEN) (3) Bacteremia: Code(s): R78.81 - Bacteremia Status: Acute Assessment and Plan: resolving culture results noted: blood cultures (from 11/09) - Enterococcus faecalis urine culture (from 11/08) - Enterococcus faecalis blood culture (from 11/11) - Enterococcus faecalis blood cultures (from 11/14) - no growth to date complicated by #2 this issue may have progressed since on immunosuppression medications (to maintain residual kidney function of transplant kidney) on antibiotics - presumably for at least 6 weeks (4) Anemia: Code(s): D64.9 - Anemia, unspecified Status: Acute Assessment and Plan: severity/recurrence out of proportion to blame ESRD alone H/H doing better currently s/p PRBC transfusion suspect possible resistance to PRESTON/Mircera due to #3 (?) however, her lupus could be contributing as well low complements noted -- related to #2 (?) ELLEN and dsDNA-Ab negative serum and urine immunofixation with IgG kappa monoclonal band Hem/Onc recommendations noted Epogen with dialysis follow trend of H/H (5) UTI (urinary tract infection): Code(s): N39.0 - Urinary tract infection, site not specified Status: Acute Assessment and Plan: urine culture with Enterococcus (see #3) on antibiotics (6) Essential (primary) hypertension: Code(s): I10 - Essential (primary) hypertension Status: Chronic Assessment and Plan: reasonable control at this time continue current medications follow trend of hemodynamics (7) Failed kidney transplant: Code(s): T86.12 - Kidney transplant failure Status: Chronic Assessment and Plan: s/p renal transplantation in 09/14/2019 kidney transplant failure in March 2021 restarted on dialysis at that time remains on tacrolimus and prednisone to maintain residual transplant kidney function (8) Renal osteodystrophy: Code(s): N25.0 - Renal osteodystrophy Status: Acute Assessment and Plan: low calcium and low phosphorus along with low potassium liberalized diet holding phosphate binders Will continue to follow. Subjective Date/time seen: 11/24/24 12:17 Interval history: Follow-up for end stage renal disease on hemodialysis. No apparent distress noted at the time of my visit; somewhat frustrated being in the hospital in general (has been waiting for transfer to [facility] for the last week); no other complaints or concerns to report currently; no events overnight or earlier today. Exam Narrative: General: WD/WN female in NAD Heart: normal S1 and S2; no rub Lungs: clear to auscultation Abdomen: soft, nontender, nondistended, positive bowel sounds Extremities: no cyanosis or clubbing; no edema Skin: warm and dry Objective Data Vital Signs Vital Signs: Vital Signs Temp Pulse Resp BP Pulse Ox O2 Del Method FiO2 11/24/24 14:00 97.5 F L 74 15 154/81 H 100 11/24/24 08:08 76 11/24/24 08:05 Room Air 11/24/24 05:42 97.4 F L 69 16 135/74 100 11/23/24 21:28 97.9 F 79 18 129/66 100 11/23/24 21:01 78 11/23/24 20:00 Room Air 0 Intake/Output Intake/Output: Intake & Output 11/21/24 11/22/24 11/23/24 11/24/24 23:59 23:59 23:59 23:59 Intake Total 6579 846 4072 850 Output Total 2004 600 Balance 1440 -1765 1510 250 Meds/Results Medications: Active Medications Generic Name Dose Route Start Last Admin Trade Name Freradha PRN Reason Stop Dose Admin Acetaminophen 650 mg 11/08/24 22:54 11/13/24 07:46 Acetaminophen 325 Mg Tablet PO 650 mg Q4H PRN Administration Mild Pain (1-3) or Fever Carvedilol 25 mg 11/10/24 21:00 11/24/24 08:08 Carvedilol 25 Mg Tablet PO 25 mg Q12HR MARIANO Administration Clonidine HCl 0.1 mg 11/20/24 16:22 Clonidine Hcl 0.1 Mg Tablet PO Q8HR PRN systolic bp above 180 Doxazosin Mesylate 8 mg 11/09/24 09:00 11/24/24 08:08 Doxazosin Mesylate 4 Mg Tablet PO 8 mg DAILY MARIANO Administration Furosemide 80 mg 11/19/24 21:00 11/24/24 08:08 Furosemide 80 Mg Tablet PO 80 mg Q12HR MARIANO Administration Albumin Human 50 mls @ 999 mls/hr 11/10/24 10:21 Albutein IVPB 12/10/24 10:20 Q10M PRN HYPOTENSION Daptomycin 700 mg/ Sodium 50 mls @ 100 mls/hr 11/21/24 15:00 11/23/24 11:14 Chloride IVPB 12/27/24 09:29 Infused Q48HR MARIANO Infusion Nifedipine 60 mg 11/20/24 16:24 11/24/24 08:08 Nifedipine 30 Mg Tab.Er.24 PO 60 mg QAM MARIANO Administration Ondansetron HCl 4 mg 11/09/24 08:12 Ondansetron Inj 4 Mg/2 Ml Vial IV PUSH Q6H PRN Nausea And Vomiting Prednisone 5 mg 11/13/24 14:20 11/24/24 08:08 Prednisone 5 Mg Tablet PO 5 mg DAILY@0800 MARIANO Administration Tacrolimus 1 mg 11/09/24 10:00 11/24/24 08:08 Tacrolimus 0.5 Mg Capsule BY MOUTH 1 mg Q12HR MARIANO Administration Vitamin D 2,000 units 11/09/24 09:00 11/24/24 08:08 Cholecalciferol 1,000 Units Tablet PO 2,000 units DAILY MARIANO Administration Radiology Results: ITS Impressions Chest X-Ray 11/08/24 15:37 IMPRESSION: No acute cardiopulmonary process. Hip/Pelvis X-Ray 11/08/24 20:28 IMPRESSION: No acute osseous finding in the pelvis or left hip. Abdomen Ultrasound 11/10/24 13:32 IMPRESSION: Prominent atrophy and increased echogenicity of the kidneys, consistent with chronic renal medical disease; no evidence of obstructive uropathy Renal cysts Spleen measures 13 cm length, within upper limits of normal (up to 14 cm) Labs Labs: Laboratory Tests 11/24/24 06:48 11/24/24 06:48 Calcium 8.5 Phosphorus 2.7 Magnesium 2.6 H Albumin 2.9 L
--- NOTE | 2024-11-24 12:17 | P.PNNP_ITS ---
Progress Note: A&P Assessment and Plan (1) End stage renal disease: Code(s): N18.6 - End stage renal disease Status: Chronic Assessment and Plan: * HD tomorrow * continue outpatient M/W/F dialysis schedule * follow electrolytes, volume status, and clearance (2) Infective endocarditis: Code(s): 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 Status: Acute Assessment and Plan: * as noted by Echo (on 11/11): * left ventricular systolic function is normal, estimated at 65-70% * trace aortic valve regurgitation * mild mitral valve regurgitation * small mobile echogenic mass measuring 0.5 cm attached to anterior mitral valve leaflet suggestive of vegetation * mild tricuspid valve regurgitation * on antibiotics * Cardiology recommendations noted * KALEN results reviewed (on 11/22): * LEFT VENTRICLE: Size and systolic function were within normal limits * INTERATRIAL SEPTUM: Interatrial septum is anatomically normal without evidence of shunt with color-flow Doppler. * MITRAL VALVE: There is a mobile mass on the anterior leaflet of the mitral valve, likely vegetation. Mass measures 0.8cm by 0.7cm. There is moderate mitral regurgitation. * AORTIC VALVE: Trileaflet. No regurgitation. No vegetation. * TRICUSPID VALVE: The tricuspid valve is anatomically normal with normal leaflet excursion. No vegetation. * PULMONIC VALVE: Grossly normal. No vegetation. * LEFT ATRIAL APPENDAGE: Anatomically normal structure with prominent pectinate muscles without thrombus or vegetation identified. * PERICARDIUM: The pericardium was anatomically normal without significant pericardial effusion * still awaiting for transfer for CTS and Infectious Disease evaluation (particularly since vegetation size is larger by KALEN) (3) Bacteremia: Code(s): R78.81 - Bacteremia Status: Acute Assessment and Plan: * resolving * culture results noted: * blood cultures (from 11/09) - Enterococcus faecalis * urine culture (from 11/08) - Enterococcus faecalis * blood culture (from 11/11) - Enterococcus faecalis * blood cultures (from 11/14) - no growth to date * complicated by #2 * this issue may have progressed since on immunosuppression medications (to maintain residual kidney function of transplant kidney) * on antibiotics - presumably for at least 6 weeks (4) Anemia: Code(s): D64.9 - Anemia, unspecified Status: Acute Assessment and Plan: * severity/recurrence out of proportion to blame ESRD alone * H/H doing better currently * s/p PRBC transfusion * suspect possible resistance to PRESTON/Mircera due to #3 (?) * however, her lupus could be contributing as well * low complements noted -- related to #2 (?) * ELLEN and dsDNA-Ab negative * serum and urine immunofixation with IgG kappa monoclonal band * Hem/Onc recommendations noted * Epogen with dialysis * follow trend of H/H (5) UTI (urinary tract infection): Code(s): N39.0 - Urinary tract infection, site not specified Status: Acute Assessment and Plan: * urine culture with Enterococcus (see #3) * on antibiotics (6) Essential (primary) hypertension: Code(s): I10 - Essential (primary) hypertension Status: Chronic Assessment and Plan: * reasonable control at this time * continue current medications * follow trend of hemodynamics (7) Failed kidney transplant: Code(s): T86.12 - Kidney transplant failure Status: Chronic Assessment and Plan: * s/p renal transplantation in 09/14/2019 * kidney transplant failure in March 2021 * restarted on dialysis at that time * remains on tacrolimus and prednisone to maintain residual transplant kidney function (8) Renal osteodystrophy: Code(s): N25.0 - Renal osteodystrophy Status: Acute Assessment and Plan: * low calcium and low phosphorus along with low potassium * liberalized diet * holding phosphate binders Will continue to follow. L Subjective Date/time seen: 11/24/24 12:17 Interval history: Follow-up for end stage renal disease on hemodialysis. No apparent distress noted at the time of my visit; somewhat frustrated being in the hospital in general (has been waiting for transfer to [facility] for the last week); no other complaints or concerns to report currently; no events overnight or earlier today. Exam 2 Narrative: General: WD/WN female in NAD Heart: normal S1 and S2; no rub Lungs: clear to auscultation Abdomen: soft, nontender, nondistended, positive bowel sounds Extremities: no cyanosis or clubbing; no edema Skin: warm and dry Objective Data Vital Signs Vital Signs: Vital Signs Temp Pulse Resp BP Pulse Ox O2 Del Method FiO2 11/24/24 14:00 97.5 F L 74 15 154/81 H 100 11/24/24 08:08 76 11/24/24 08:05 Room Air 11/24/24 05:42 97.4 F L 69 16 135/74 100 11/23/24 21:28 97.9 F 79 18 129/66 100 11/23/24 21:01 78 11/23/24 20:00 Room Air 0 Intake/Output Intake/Output: Intake & Output 11/21/24 11/22/24 11/23/24 11/24/24 23:59 23:59 23:59 23:59 Intake Total 5354 945 6753 850 Output Total 2004 600 Balance 1440 -1765 1510 250 Meds/Results Medications: Active Medications Generic Name Dose Route Start Last Admin Trade Name Freq PRN Reason Stop Dose Admin Acetaminophen 650 mg 11/08/24 22:54 11/13/24 07:46 Acetaminophen 325 Mg Tablet PO 650 mg Q4H PRN Administration Mild Pain (1-3) or Fever Carvedilol 25 mg 11/10/24 21:00 11/24/24 08:08 Carvedilol 25 Mg Tablet PO 25 mg Q12HR MARIANO Administration Clonidine HCl 0.1 mg 11/20/24 16:22 Clonidine Hcl 0.1 Mg Tablet PO Q8HR PRN systolic bp above 180 Doxazosin Mesylate 8 mg 11/09/24 09:00 11/24/24 08:08 Doxazosin Mesylate 4 Mg Tablet PO 8 mg DAILY MARIANO Administration Furosemide 80 mg 11/19/24 21:00 11/24/24 08:08 Furosemide 80 Mg Tablet PO 80 mg Q12HR MARIANO Administration Albumin Human 50 mls @ 999 mls/hr 11/10/24 10:21 Albutein IVPB 12/10/24 10:20 Q10M PRN HYPOTENSION Daptomycin 700 mg/ Sodium 50 mls @ 100 mls/hr 11/21/24 15:00 11/23/24 11:14 Chloride IVPB 12/27/24 09:29 Infused Q48HR MARIANO Infusion Nifedipine 60 mg 11/20/24 16:24 11/24/24 08:08 Nifedipine 30 Mg Tab.Er.24 PO 60 mg QAM MARIANO Administration Ondansetron HCl 4 mg 11/09/24 08:12 Ondansetron Inj 4 Mg/2 Ml Vial IV PUSH Q6H PRN Nausea And Vomiting Prednisone 5 mg 11/13/24 14:20 11/24/24 08:08 Prednisone 5 Mg Tablet PO 5 mg DAILY@0800 MARIANO Administration Tacrolimus 1 mg 11/09/24 10:00 11/24/24 08:08 Tacrolimus 0.5 Mg Capsule BY MOUTH 1 mg Q12HR MARIANO Administration Vitamin D 2,000 units 11/09/24 09:00 11/24/24 08:08 Cholecalciferol 1,000 Units Tablet PO 2,000 units DAILY MARIANO Administration Radiology Results: ITS Impressions Chest X-Ray 11/08/24 15:37 IMPRESSION: No acute cardiopulmonary process. Hip/Pelvis X-Ray 11/08/24 20:28 IMPRESSION: No acute osseous finding in the pelvis or left hip. Abdomen Ultrasound 11/10/24 13:32 IMPRESSION: Prominent atrophy and increased echogenicity of the kidneys, consistent with chronic renal medical disease; no evidence of obstructive uropathy Renal cysts Spleen measures 13 cm length, within upper limits of normal (up to 14 cm) Labs Labs: Laboratory Tests 11/24/24 06:48 11/24/24 06:48 Calcium 8.5 Phosphorus 2.7 Magnesium 2.6 H Albumin 2.9 L
--- NOTE | 2024-11-24 13:22 | P.PNIM_ITS ---
Progress Note: A&P Assessment and Plan (1) UTI (urinary tract infection): Code(s): N39.0 - Urinary tract infection, site not specified Status: Acute (2) Anemia in chronic kidney disease: Code(s): N18.9 - Chronic kidney disease, unspecified; D63.1 - Anemia in chronic kidney disease Status: Acute (3) Essential (primary) hypertension: Code(s): I10 - Essential (primary) hypertension Status: Chronic (4) Dialysis patient: Code(s): Z99.2 - Dependence on renal dialysis Status: Acute (5) Immunosuppression: Code(s): D89.9 - Disorder involving the immune mechanism, unspecified Status: Acute (6) Chronic lupus nephritis: Code(s): M32.14 - Glomerular disease in systemic lupus erythematosus Status: Acute (7) Infective endocarditis: Code(s): 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 Status: Acute Plan This is a 54-year-old female with past medical history significant for lupus nephritis, end-stage renal disease on hemodialysis, failed kidney transplant, anemia of chronic disease. Patient dialyzes 3 times a week comes to the emergency room due to episode of fever, patient denies any cough, nausea, vomiting, has been in her usual state of health up until this point. Preliminary workup in emergency room was significant for hemoglobin of 6.3, a urinalysis was significant for numerous WBCs present. # Sepsis # Fever, possible resulting from UTI, infective endocarditis and bacteremia Patient tested negative for COVID RSV and flu. Chest x-ray with no acute cardiopulmonary disease. UA positive for UTI EKG did not show any acute ST-T changes. 2x Blood culture grow Enterococcus faecalis. Urinalysis does note evidence of UTI. Urine culture grows Enterococcus echo report: 1. Complete two-dimensional, color flow and Doppler transthoracic echocardiogram is performed. 2. Left ventricular chamber dimension is normal. 3. Left ventricular systolic function is normal, estimated at 65-70%. 4. There is moderate concentric increased left ventricular wall thickness. 5. The left ventricular diastolic function is grade I diastolic dysfunction. 6. E/e' 20 is elevated. 7. Global longitudinal strain is normal at -19.2%. 8. There is trace aortic valve regurgitation. 9. There is mild mitral valve regurgitation. 10. Small mobile echogenic mass measuring 0.5 cm attached to anterior mitral valve leaflet suggestive of vegetation. 11. There is mild tricuspid valve regurgitation. 12. No pulmonary hypertension, estimated pulmonary arterial systolic pressure is 32 mmHg. 13. There is trace pulmonic regurgitation. repeat BCX on 11/14 no growth so far Infective endocarditis and bacteremia Patient on levofloxacin and vancomycin. Discontinue Levaquin, continue vancomycin Dosing per pharmacist Repeat blood culture 11/09 and are positive of enterococcus TTE: Small mobile echogenic mass measuring 0.5 cm attached to anterior mitral valve leaflet suggestive of vegetation. 11/14The 3rd set for blood culture has no growth so far Changed to daptomycin IV after discussed with ID pharmacist 11/15 continue daptomycin iv (The [place] [employer] (AHA) guidelines recommend that antimicrobial therapy for infective endocarditis should be continued for a prolonged course, typically 4 to 6 weeks, after blood cultures have turned negative) Cardiology consulted. Ravi 11/02/2024 with mobile mass on the anterior leaflet of the mitral valve measuring 0.8 cm x 0.7 cm with moderate mitral regurgitation. Cardiology recommends ID consultation and CT surgery consultation. Awaiting bed placement at [facility] # Severe anemia Denies any active bleeding no blood in stool or urine. She is status post complete hysterectomy. Last colonoscopy in July 2024 was unremarkable. She has been feeling generally weak and also short of breath. She has been having intermittent fever for several weeks now. On arrival to the ED see was borderline febrile with a temperature of 37.9?. Otherwise vitals were stable except for elevated blood pressure. Laboratory studies showed CBC with hemoglobin of 6.3. received 2 units of packed red blood cell transfusion overnight. Her post transfusion hemoglobin is 8.9. and remains stable. occult blood stool negative. 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 Management per centrifugal casting machine operator # UTI see above # History of lupus nephritis status post kidney transplant failed and back on dialysis again # Colon polyps Diarrhea intermittent reported. Will get stool studies # History of DVT in 2012 # Migraine # Hypertension # DVT prophylaxis SCDs # Code status full code Transfer To [facility] planned who has accepted the patient. Patient needs to go to [facility] for further treatment and evaluation with CT surgery and Infectious Disease Subjective Date/time seen: 11/24/24 13:22 Interval history: no overnight events. Patient remains afebrile. Awaiting transfer to [facility]. Review of Systems Review of Systems: All systems reviewed & are unremarkable except as noted in HPI and below Exam Narrative: GENERAL: Pleasant, in no acute distress. Well-nourished. - EYES: EOMI. Anicteric. - HENT: Moist mucous membranes. - LUNGS: Clear to auscultation bilateral ly, no wheezing, rhonchi, or rales. - CARDIOVASCULAR: Regular rate and rhyth m. No murmur. No JVD. - ABDOMEN: Soft, non-tender and non-dist ended. No palpable masses. - EXTREMITIES: No edema. Peripheral puls es 2+. Non-tender. - NEUROLOGIC: No focal neurological defi cits. CN II-XII grossly intact. - PSYCHIATRIC: Awake, Alert and oriented x 3. Appropriate mood and affect. General weakness - SKIN: No rashes or lesions. Warm. - LYMPH: No cervical lymphadenopathy. Objective Data Vital Signs Vital Signs: Vital Signs - 24 hr 11/23/24 14:00 11/23/24 20:00 11/23/24 21:01 Temperature 97.6 F Pulse Rate 81 78 Respiratory Rate 16 Blood Pressure 167/83 H Pulse Oximetry 100 Oxygen Delivery Room Air Fraction of Inspired Oxygen 0 11/23/24 21:28 11/24/24 05:42 11/24/24 08:05 Temperature 97.9 F 97.4 F L Pulse Rate 79 69 Respiratory Rate 18 16 Blood Pressure 129/66 135/74 Pulse Oximetry 100 100 Oxygen Delivery Room Air Fraction of Inspired Oxygen 11/24/24 08:08 Temperature Pulse Rate 76 Respiratory Rate Blood Pressure Pulse Oximetry Oxygen Delivery Fraction of Inspired Oxygen Intake/Output Intake/Output: Intake & Output 11/21/24 11/22/24 11/23/24 11/24/24 23:59 23:59 23:59 23:59 Intake Total 9684 195 5341 850 Output Total 2004 600 Balance 1440 -1765 1510 250 Meds/Results Medications: Active Medications Generic Name Dose Route Start Last Admin Trade Name Freq PRN Reason Stop Dose Admin Acetaminophen 650 mg 11/08/24 22:54 11/13/24 07:46 Acetaminophen 325 Mg Tablet PO 650 mg Q4H PRN Administration Mild Pain (1-3) or Fever Carvedilol 25 mg 11/10/24 21:00 11/24/24 08:08 Carvedilol 25 Mg Tablet PO 25 mg Q12HR MARIANO Administration Clonidine HCl 0.1 mg 11/20/24 16:22 Clonidine Hcl 0.1 Mg Tablet PO Q8HR PRN systolic bp above 180 Doxazosin Mesylate 8 mg 11/09/24 09:00 11/24/24 08:08 Doxazosin Mesylate 4 Mg Tablet PO 8 mg DAILY MARIANO Administration Furosemide 80 mg 11/19/24 21:00 11/24/24 08:08 Furosemide 80 Mg Tablet PO 80 mg Q12HR MARIANO Administration Albumin Human 50 mls @ 999 mls/hr 11/10/24 10:21 Albutein IVPB 12/10/24 10:20 Q10M PRN HYPOTENSION Daptomycin 700 mg/ Sodium 50 mls @ 100 mls/hr 11/21/24 15:00 11/23/24 11:14 Chloride IVPB 12/27/24 09:29 Infused Q48HR MARIANO Infusion Nifedipine 60 mg 11/20/24 16:24 11/24/24 08:08 Nifedipine 30 Mg Tab.Er.24 PO 60 mg QAM MARIANO Administration Ondansetron HCl 4 mg 11/09/24 08:12 Ondansetron Inj 4 Mg/2 Ml Vial IV PUSH Q6H PRN Nausea And Vomiting Prednisone 5 mg 11/13/24 14:20 11/24/24 08:08 Prednisone 5 Mg Tablet PO 5 mg DAILY@0800 MARIANO Administration Tacrolimus 1 mg 11/09/24 10:00 11/24/24 08:08 Tacrolimus 0.5 Mg Capsule BY MOUTH 1 mg Q12HR MARIANO Administration Vitamin D 2,000 units 11/09/24 09:00 11/24/24 08:08 Cholecalciferol 1,000 Units Tablet PO 2,000 units DAILY MARIANO Administration Radiology Results: ITS Impressions Chest X-Ray 11/08/24 15:37 IMPRESSION: No acute cardiopulmonary process. Hip/Pelvis X-Ray 11/08/24 20:28 IMPRESSION: No acute osseous finding in the pelvis or left hip. Abdomen Ultrasound 11/10/24 13:32 IMPRESSION: Prominent atrophy and increased echogenicity of the kidneys, consistent with chronic renal medical disease; no evidence of obstructive uropathy Renal cysts Spleen measures 13 cm length, within upper limits of normal (up to 14 cm) Labs Labs: Laboratory Results - last 24 hr 11/24/24 11/24/24 06:48 08:41 WBC 4.3 L RBC 3.55 L Hgb 10.2 L Hct 34.2 L MCV 96.3 MCH 28.7 MCHC 29.8 L RDW 17.9 H Plt Count 182 MPV 9.7 Immature Gran % (Auto) 0.2 Neut % (Auto) 67.0 Lymph % (Auto) 22.3 [place] % (Auto) 9.3 H Eos % (Auto) 0.7 Baso % (Auto) 0.5 Lymph # (Auto) 0.96 [place] # (Auto) 0.4 Eos # (Auto) 0.0 Baso # (Auto) 0.0 Abs Immat Gran (auto) 0.01 Absolute Neuts (auto) 2.9 Absolute Nucleated RBC 0.000 Nucleated RBC % 0.0 Sodium 136 L Potassium 5.3 H Chloride 106 Carbon Dioxide 27 Anion Gap 3 L BUN 17 D Creatinine 4.48 H Estim Creat Clear Calc 11 Estimated GFR 12 L Glucose 52 L* POC Capillary Glucose 83 Calcium 8.5 Phosphorus 2.7 Magnesium 2.6 H Albumin 2.9 L
[2024-11-24 14:00] VITALS: BP 154/81; PULSE 74; RESP 15; TEMP 36.4; O2SAT 100
[2024-11-24 20:17] VITALS: PULSE 74
--- NOTE | 2024-11-25 14:54 | PM.TDS ---
Transfer Discharge Sum: Prov Provider Date of admission: 11/09/24 09:32 Primary care physician: Vinny Lugo, DO Admitting clinician: Charlie Lynn MD Consults: 11/09/24 13:16 Consult to Physician Routine Comment: Consulting Provider: Victoriano Sharpe call circuit worker/MD group to consult: Nephrology Reason for consultation: End-stage renal disease on hemodialysis Has provider been notified: Yes 11/11/24 Consult to Physician Routine Comment: spoke to @[phone] ([facility]) Consulting Provider: Dhruv Galeana Reason for consultation: anemia (despite Mircera and IV iron with dialysis) Has provider been notified: Yes 11/20/24 Consult to Physician Routine Comment: Left DR pamela IVORY @9783 11/20 [facility] [place] Consulting Provider: Anamika Peterson call circuit worker/ group to consult: On-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 biodiesel operations manager Reason for consultation: Infective endocarditis, mitral vegetation Has provider been notified: Yes DS: Admitting Diagnosis Discharge Date 11/24/24 Admitting Diagnosis Anemia/fever DS: Discharge Diagnosis Discharge Diagnosis (1) UTI (urinary tract infection): Code(s): N39.0 - Urinary tract infection, site not specified Status: Acute (2) Anemia in chronic kidney disease: Code(s): N18.9 - Chronic kidney disease, unspecified; D63.1 - Anemia in chronic kidney disease Status: Acute (3) Essential (primary) hypertension: Code(s): I10 - Essential (primary) hypertension Status: Chronic (4) Dialysis patient: Code(s): Z99.2 - Dependence on renal dialysis Status: Acute (5) Immunosuppression: Code(s): D89.9 - Disorder involving the immune mechanism, unspecified Status: Acute (6) Chronic lupus nephritis: Code(s): M32.14 - Glomerular disease in systemic lupus erythematosus Status: Acute (7) Infective endocarditis: Code(s): 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 Status: Acute Transfer Discharge Sum: Med Medications Active and Home Medications: Home Medications cholecalciferol (vitamin D3) 50 mcg (2,000 unit) tablet 2,000 unit PO DAILY 10/02/19 [History Confirmed 11/09/24] tacrolimus 1 mg capsule, immediate-release 1 mg PO Q12H 10/02/19 [History Confirmed 11/09/24] furosemide 80 mg tablet 80 mg PO BID 05/24/22 [History Confirmed 11/09/24] doxazosin 8 mg tablet 8 mg PO DAILY 06/09/22 [History Confirmed 11/09/24] biotin 10,000 mcg capsule 10,000 mcg PO DAILY 08/02/22 [History Confirmed 11/09/24] multivitamin and minerals no.11-folic acid 5 mg tablet (Dialyvite 5000) 1 tablet PO DAILY 09/12/22 [History Confirmed 11/09/24] atorvastatin 20 mg tablet 20 mg PO DAILY #90 tabs 02/08/24 [Rx Confirmed 11/09/24] carvedilol 25 mg tablet 25 mg PO BID #60 tabs 05/09/24 [Rx Confirmed 11/09/24] diltiazem HCl 120 mg capsule,extended release 24 hr See Rx Instructions .Route .COMPLEX #90 caps 08/23/24 [Rx Confirmed 11/09/24] prednisone 5 mg tablet 5 mg PO DAILY 11/13/24 [History Confirmed 11/13/24] Transfer Discharge Sum: Hosp Hospital Course Hospital course: Umesh Miller is a 54 year old female with past medical history significant for lupus nephritis, end-stage renal disease on hemodialysis, failed kidney transplant, anemia of chronic disease. Patient dialyzes 3 times a week comes to the emergency room due to episode of fever, patient denies any cough, nausea, vomiting, has been in her usual state of health up until this point. Preliminary workup in emergency room was significant for hemoglobin of 6.3, a urinalysis was significant for numerous WBCs present. # Sepsis # Fever, possible resulting from UTI, infective endocarditis and bacteremia Patient tested negative for COVID RSV and flu. Chest x-ray with no acute cardiopulmonary disease. UA positive for UTI EKG did not show any acute ST-T changes. 2x Blood culture grow Enterococcus faecalis. Urinalysis does note evidence of UTI. Urine culture grows Enterococcus echo report: 1. Complete two-dimensional, color flow and Doppler transthoracic echocardiogram is performed. 2. Left ventricular chamber dimension is normal. 3. Left ventricular systolic function is normal, estimated at 65-70%. 4. There is moderate concentric increased left ventricular wall thickness. 5. The left ventricular diastolic function is grade I diastolic dysfunction. 6. E/e' 20 is elevated. 7. Global longitudinal strain is normal at -19.2%. 8. There is trace aortic valve regurgitation. 9. There is mild mitral valve regurgitation. 10. Small mobile echogenic mass measuring 0.5 cm attached to anterior mitral valve leaflet suggestive of vegetation. 11. There is mild tricuspid valve regurgitation. 12. No pulmonary hypertension, estimated pulmonary arterial systolic pressure is 32 mmHg. 13. There is trace pulmonic regurgitation. repeat BCX on 11/14 no growth so far Infective endocarditis and bacteremia Patient on levofloxacin and vancomycin. Discontinue Levaquin, continue vancomycin Dosing per pharmacist Repeat blood culture 11/09 and are positive of enterococcus TTE: Small mobile echogenic mass measuring 0.5 cm attached to anterior mitral valve leaflet suggestive of vegetation. 11/14The 3rd set for blood culture has no growth so far Changed to daptomycin IV after discussed with ID pharmacist 11/15 continue daptomycin iv (The [place] [employer] (AHA) guidelines recommend that antimicrobial therapy for infective endocarditis should be continued for a prolonged course, typically 4 to 6 weeks, after blood cultures have turned negative) Cardiology consulted. Ravi 11/02/2024 with mobile mass on the anterior leaflet of the mitral valve measuring 0.8 cm x 0.7 cm with moderate mitral regurgitation. Cardiology recommends ID consultation and CT surgery consultation. She was eventually transferred to [facility] for further treatment. She was accepted by CT surgery # Severe anemia Denies any active bleeding no blood in stool or urine. She is status post complete hysterectomy. Last colonoscopy in July 2024 was unremarkable. She has been feeling generally weak and also short of breath. She has been having intermittent fever for several weeks now. On arrival to the ED see was borderline febrile with a temperature of 37.9?. Otherwise vitals were stable except for elevated blood pressure. Laboratory studies showed CBC with hemoglobin of 6.3. received 2 units of packed red blood cell transfusion overnight. Her post transfusion hemoglobin is 8.9. and remains stable. occult blood stool negative. Possible due to end-stage renal disease consult school of nursing director for evaluation treatment # End-stage renal disease, hypokalemia Chem panel was unremarkable except for underlying CKD and low potassium of 2.7. Management per school of nursing director # UTI see above # History of lupus nephritis status post kidney transplant failed and back on dialysis again # Colon polyps Diarrhea intermittent reported. Will get stool studies # History of DVT in 2012 # Migraine # Hypertension # DVT prophylaxis SCDs # Code status full code Time Spent with Patient Time attestation: Total time spent providing and/or coordinating transfer services: 35 minutes Exam Narrative: GENERAL: Pleasant, in no acute distress. Well-nourished. - EYES: EOMI. Anicteric. - HENT: Moist mucous membranes. - LUNGS: Clear to auscultation bilaterally, no wheezing, rhonchi, or rales. - CARDIOVASCULAR: Regular rate and rhythm. No murmur. No JVD. - ABDOMEN: Soft, non-tender and non-distended. No palpable masses. - EXTREMITIES: No edema. Peripheral pulses 2+. Non-tender. - NEUROLOGIC: No focal neurological deficits. CN II-XII grossly intact. - PSYCHIATRIC: Awake, Alert and oriented x 3. Appropriate mood and affect. General weakness - SKIN: No rashes or lesions. Warm. - LYMPH: No cervical lymphadenopathy. DS: Data Data Completed and Pending Completed studies during hospitalization: Exam Type: CA echo doppler color flow Study Info Indications - BACTEREMIA Complete two-dimensional, color flow and Doppler transthoracic echocardiogram is performed. Strain analysis performed. Summary 1. Complete two-dimensional, color flow and Doppler transthoracic echocardiogram is performed. 2. Left ventricular chamber dimension is normal. 3. Left ventricular systolic function is normal, estimated at 65-70%. 4. There is moderate concentric increased left ventricular wall thickness. 5. The left ventricular diastolic function is grade I diastolic dysfunction. 6. E/e' 20 is elevated. 7. Global longitudinal strain is normal at -19.2%. 8. There is trace aortic valve regurgitation. 9. There is mild mitral valve regurgitation. 10. Small mobile echogenic mass measuring 0.5 cm attached to anterior mitral valve leaflet suggestive of vegetation. 11. There is mild tricuspid valve regurgitation. 12. No pulmonary hypertension, estimated pulmonary arterial systolic pressure is 32 mmHg. 13. There is trace pulmonic regurgitation. Left Ventricle E/e' 20 is elevated. Global longitudinal strain is normal at -19.2%. Left ventricular chamber dimension is normal. Left ventricular systolic function is normal, estimated at 65-70%. There is moderate concentric increased left ventricular wall thickness. The left ventricular diastolic function is grade I diastolic dysfunction. Right Ventricle Right ventricular chamber dimension is normal. Right ventricular systolic function is normal. Left Atria Left atrial chamber dimension is normal. Right Atria Right atrial chamber dimension is normal. Aortic Valve The aortic valve is trileaflet. There is no aortic valve stenosis. There is trace aortic valve regurgitation. No aortic valve vegetation visualized. Pulmonic Valve There is trace pulmonic regurgitation. No pulmonic valve vegetation visualized. Mitral Valve Small mobile echogenic mass measuring 0.5 cm attached to anterior mitral valve leaflet suggestive of vegetation. There is no mitral valve stenosis. There is mild mitral valve regurgitation. Tricuspid Valve There is mild tricuspid valve regurgitation. No pulmonary hypertension, estimated pulmonary arterial systolic pressure is 32 mmHg. No tricuspid valve vegetation visualized. Pericardium/Pleural There is no pericardial effusion. Inferior Vena Cava Normal inferior vena cava with >50% collapse upon inspiration consistent with normal right atrial pressure, 5 mmHg. Aorta The aortic root size at the sinus of Valsalva is normal. Procedures/Treatments: RAVI TransEsophageal Echocardiogram Date of procedure: 11/22/24 Procedure Type: Date Of Procedure: 11/22/2024 Brief History Of Present Illness: Patient is a pleasant 54 year old female who is referred for RAVI for evaluation of infective endocarditis. Procedure In Detail: After verbal and written informed consent was obtained, the patient risks, benefits, and alternatives explained in detail. The patient agreed to proceed with the plan of care as outlined above.?The patient was evaluated at bedside in the [facility].?The posterior oropharynx, neck, and jaw angle all within normal limits on examination. Lungs were clear to auscultation. See pre-sedation note for further details. The patient was then placed in the appropriate 30 to 45 degree angle supine position at a slight left lateral decubitus position.?Patient was monitored throughout the study with telemetry, oxygen saturation, end-tidal CO2 monitoring, blood pressure, heart rate, and respirations.?The posterior hypopharynx was then locally anesthetized using repeated administration of Hurricaine spray as well as gargled viscous lidocaine. After local anesthetic of the posterior hypopharynx was achieved and the oral bite block placed, moderate sedation was administered.?After confirmation of adequate moderate sedation, the transesophageal echocardiogram probe was advanced through the oral bite block into the posterior hypopharynx and into the esophagus easily and without complication.?Multiple, multiplanar echocardiographic images were obtained in multiple standard re-projections.?Continuous-wave, and color-flow Doppler were utilized in conjunction with this study.?At the conclusion of the study, the transesophageal echocardiogram probe was removed easily and without complication. The patient tolerated the procedure well without difficulty.?Patient was in sinus rhythm throughout the study. Moderate Sedation / Anesthesia Administration: Procedure / sedation start time: 12:11 Procedure / sedation end time: 12:26 Total procedure time: 15 minutes Total of IV Versed 2mg and Fentanyl 100mg was administered by RN. FINDINGS: LEFT VENTRICLE: Size and systolic function were within normal limits. RIGHT VENTRICLE:?Size and systolic function within normal limits. LEFT ATRIUM: Normal size. RIGHT ATRIUM: Normal size. INTERATRIAL SEPTUM: Interatrial septum is anatomically normal without evidence of shunt with color-flow Doppler. MITRAL VALVE: There is a mobile mass on the anterior leaflet of the mitral valve, likely vegetation. Mass measures 0.8cm by 0.7cm. There is moderate mitral regurgitation. AORTIC VALVE: Trileaflet. No regurgitation. No vegetation. TRICUSPID VALVE: The tricuspid valve is anatomically normal with normal leaflet excursion. No vegetation. PULMONIC VALVE: Grossly normal. No vegetation. LEFT ATRIAL APPENDAGE: Anatomically normal structure with prominent pectinate muscles without thrombus or vegetation identified. PERICARDIUM: The pericardium was anatomically normal without significant pericardial effusion. ? Complications: None CONCLUSION: Infective endocarditis. Vegetation on the anterior mitral valve leaflet measuring approximately 0.8cm x 0.7cm. Moderate mitral regurgitation. Recommend Infectious Disease consultation and CT Surgery consultation. Imaging Radiologist's impression: ITS Impressions Chest X-Ray 11/08/24 15:37 IMPRESSION: No acute cardiopulmonary process. Hip/Pelvis X-Ray 11/08/24 20:28 IMPRESSION: No acute osseous finding in the pelvis or left hip. Abdomen Ultrasound 11/10/24 13:32 IMPRESSION: Prominent atrophy and increased echogenicity of the kidneys, consistent with chronic renal medical disease; no evidence of obstructive uropathy Renal cysts Spleen measures 13 cm length, within upper limits of normal (up to 14 cm)
[2024-11-27 11:33] LABS: PRA 0.74 ng/mL/h (0.25-5.82)
== END 2024-11-24 22:30 | disposition short-term general hospital (02) | DRG 871 ==
LOC: ANHED 22:54 → ANHIMU 11-09 00:23 → ANH3MEDSUR 11-12 11:09 → ANHIMU 11-25 11:59
PROVIDERS: Hospitalist; Internal Medicine; Internal Medicine Nephrology; Admitting Provider Internal Medicine; Emergency Provider Student in an Organized Health Care Education/Training Program; PCP Family Medicine; Visit Provider Internal Medicine
PROC: B24BZZ4 Ultrasonography of Heart with Aorta, Transesophageal (ICD-10-PCS; CPT 93312; principal; 2024-11-22 12:00)
DX: A41.81 Sepsis due to Enterococcus (principal); I33.0 Acute and subacute infective endocarditis; N18.6 End stage renal disease; N39.0 Urinary tract infection, site not specified; I12.0 Hypertensive chronic kidney disease with stage 5 chronic kidney disease or end stage renal disease; Z94.0 Kidney transplant status; T86.12 Kidney transplant failure; B95.2 Enterococcus as the cause of diseases classified elsewhere; D89.9 Disorder involving the immune mechanism, unspecified; M32.14 Glomerular disease in systemic lupus erythematosus; G43.909 Migraine, unspecified, not intractable, without status migrainosus; D63.1 Anemia in chronic kidney disease; E78.2 Mixed hyperlipidemia; E87.6 Hypokalemia; R16.2 Hepatomegaly with splenomegaly, not elsewhere classified; Z20.822 Contact with and (suspected) exposure to COVID-19; N25.0 Renal osteodystrophy; Z99.2 Dependence on renal dialysis; Z86.16 Personal history of COVID-19; Z90.710 Acquired absence of both cervix and uterus; Z86.718 Personal history of other venous thrombosis and embolism
CPT/HCPCS: 36415; 36430; 71045; 73502; 76700; 80048; 80053; 80069; 80202; 81001; 82088; 82274; 82550; 82607; 82728; 82746; 82948; 83540; 83550; 83735; 83835; 83883; 84244; 85014; 85018; 85025; 85027; 85046; 85055; 85652; 86038; 86039; 86140; 86160; 86162; 86225; 86334; 86335; 86706; 86850; 86900; 86901; 86923; 87040; 87045; 87086; 87177; 87181; 87209; 87340; 87425; 87427; 87449; 87637; 87641; 87651; 87798; 89055; 93005; 93306; 93312; 93320; 93325; 96361; 99285; A9270; G0257; G0378; J0360; J0878; J1644; J1956; J2250; J3010; J3370; J7030; J7040; J7050; J7512; P9016; Q4081; Q5105

== ENCOUNTER 2025-02-21 00:20 | Day surgery (SDC) | payer MEDICARE, BC, SELFPAY ==
[2025-02-12 13:49] VITALS: BMI 21.7
--- OUTSIDE RECORDS SUMMARY | 2025-02-21 00:25 | XMS_ITS | Encounter Summary ---
Author Organization [facility] Healthcare Address [address] [place] [address] Care Team Providers Care Center Medical Specialist Name Role Phone Jian Gallagher MD Primary Care Provider [phone] Edwardo Swain MD Unavailable [phone] Kerri Rodriguez RN Unavailable [phone] Meri Valdez RN Unavailable [phone] Vinny Lugo DO Primary Care Provider [phone] Vj Oreilly MD Unavailable [phone] Miscellaneous, Not In File Unavailable Unava ilable Shun Germain DO Primary Care Provider [phone] Encounter Details Date Type Department Care Team (Late st Contact Info) Description 08/05/2020 Telephone [facility] - Imaging [address] [place] [address] Transcribed Order, Provider Social History Tobacco Use Types Packs/Day Years Used Date Smoking Tobacco: Never Smokeless Tobacco: Never Alcohol Use Standard Drinks/Week Comments No 0 (1 standard drink = 0.6 oz pur e alcohol) Social Connection and Isolation Panel [NHANES] A nswer Date Recorded Frequency of Communication with Friends and Fami ly Not asked 09/14/2019 Frequency of Social Gatherings with Friends and Family Not asked 09/14/2019 Attends Amish Services Not asked 09/14 Active Member of Clubs or Organizations Not aske d 09/14/2019 Attends Club or Organization Meetings Not asked 09/14/2019 Marital Status Not asked 09/14/2019 Overall Financial Resource Strain (CARDIA) Answe r Date Recorded Difficulty of Paying Living Expenses Not hard at all 09/14/2019 Hunger Vital Sign Answer Date Recorded Worried About Running Out of Food in the Last Ye ar Never true 09/14/2019 Ran Out of Food in the Last Year Never true 09/14/2019 PRAPARE - Transportation Answer Date Re corded Lack of Transportation (Medical) No 09/14/2019 Lack of Transportation (Non-Medical) No 09/14/2019 Comments No Sex and Gender Information Value Date Recorded Sex Assigned at Not on file 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 03/18/2020 06/17/2020 08/07/2020 3:05 AM C DT Ring Surveillance Comment:C.auris Ring Surveillance Flag is placed and removed manually by IP. However, if the patient is discharged before their swab is collected, it will remain on a patient's chart for 7 days after discharge in case the patient is re-admitted elsewhere. Pt is undergoing Ring Surveillance for admission to [address] Pt needs transfer swab, ordered 12/04/24 11/25/2024 11/25/2024 12/06/2024 8:32 PM RESEARCH ASSISTANT PROFESSOR Ring Surveillance Comment:C.auris Ring Surveillance Flag is placed and removed manually by IP. However, if the patient is discharged before their swab is collected, it will remain on a patient's chart for 7 days after discharge in case the patient is re-admitted elsewhere. Pt is undergoing Ring Surveillance for admission to [address]. [facility] One time sweep 12/10/2024 12/10/2024 12/12/2024 1:[address] documented as of this encounter Care Teams Center Medical Specialist Relationship Specialty Start Date End Date Jian Gallagher MD [address] [place] [address] PCP - General 01/28/13 12/10/24 iVnny Lugo DO [address] [place] [address] [address] [place] [address] PCP - General Family Medicine 12/11/24 02/05/25 Shun Germain DO [address] [place] [address] [address] [place] [address] PCP - General Internal Medicine 02/06/25 Edwardo Swain MD [address] [facility] [address] [place] [address] Referring Physician Nephrology 09/04/18 Kerri Rodriguez, RN Film Mounter 10/05/20 Meri Valdez, RN [address] [facility] [address] [place] [address] Registered Nurse Film Mounter 06/03/21 Vj Oreilly MD [id number] [place] [address] Consulting Physician Cardiothoracic Surgery 12/12/24 Miscellaneous, Not In File 12/12/24 documented as of this encounter
--- OUTSIDE RECORDS SUMMARY | 2025-02-21 00:25 | XMS_ITS | Encounter Summary ---
Author Organization [facility] Healthcare Address [address] [place] [address] Care Team Providers Care Machine Adjuster Leader Name Role Phone Jian Gallagher MD Primary Care Provider [phone] Edwardo Swani MD Unavailable [phone] Kerri Rodriguez RN Unavailable [phone] Meri Valdez RN Unavailable [phone] Vinny Lugo DO Primary Care Provider [phone] Vj Oreilly MD Unavailable [phone] Miscellaneous, Not In File Unavailable Unava ilable Shun Germain DO Primary Care Provider [phone] Encounter Details Date Type Department Care Team (Late st Contact Info) Description 06/01/2020 Telephone [facility] Radiology [address] [place] [address] Edyta Shannon RN Social History Tobacco Use Types Packs/Day Years [...] Friends and Family Not asked 09/14/2019 Attends Confucianism Services Not asked 09/14 Active Member of [...] on file 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 [facility] Pt needs transfer swab, ordered 12/04/24 11/25/2024 11/25/2024 12/06/2024 8:[address] Ring Surveillance Comment:C.auris Ring Surveillance Flag is [...] documented as of this encounter Care Teams Machine Adjuster Leader Relationship Specialty Start Date End Date Jian Gallagher MD [address] [place] [address] PCP - General 01/28/13 12/10/24 Vinny Lugo DO [address] [place] [address] [address] [place] [address] PCP - General Family Medicine 12/11/24 02/05/25 Shun Germain DO [address] [place] [address] [address] [place] [address] PCP - General Internal Medicine 02/06/25 Edwardo Swain MD [address] [facility] [address] [place] [address] Referring Physician Nephrology 09/04/18 Kerri Rodriguez, RN Litigation Legal Secretary 10/05/20 Meri Valdez, RN [address] [facility] [address] [place], [place] [id number] Registered Nurse Litigation Legal Secretary 06/03/21 Vj Oreilly MD [id number] [place] [address] Consulting Physician Cardiothoracic Surgery 12/12/24 Miscellaneous, Not In File 12/12/24 documented as of this encounter
--- OUTSIDE RECORDS SUMMARY | 2025-02-21 00:25 | XMS_ITS | Clinical Summary ---
Author Organization [facility] Address [address] [place] [address] Care Team Providers Care Joint Setter Name Role Phone Vinny Lugo DO Primary Care Provider [phone] Vinny Lugo DO Unavailable Source Comments [facility],non-owned Affiliates and Associated Physician Practices is amultiple site organization consisting of ambulatory clinics and hospital sitesin [place], [place], [place] and [place]. This disclosure is being madepursuant to the Care Everywhere program and may not contain all information available regarding this patient. Last updated 18.[facility] Allergies Active Allergy Reactions Criticality Noted Date Comments Lisinopril Anaphylaxis,Angioedema High 01/15/2013 Penicillins Swelling 01/15/2013 Medications * Be aware that medications may not be up to date on this document. Alwaysverify current medications with the patient. acetaminophen (TYLENOL) 325 MG tabletIndication s:Fever,Pain Take 650 mg by mouth every 4 hours as needed. Maximum allowable Acetaminophen amount = 4 Grams (4000 mg) / 24 hours. Indications: Fever, Pain Active Other Take 5 mL by mouth 3 times daily before meals. Dexamethasone 4mg; nystatin 60ml; acetaminophen elixir 90ml; diphenhydramine elixir 90ml Swish in mouth and swallow 5ml, TID before meals. 01/17/20 13 Active diphenhydramine- lidocaine-alum/m ag/simethicone 1:1:1 (MAGIC MOUTHWASH) suspension Swish and spit 5 mL every 6 hours as needed for Sore Throat. 1 Bottle 0 01/25/20 13 Active Additional Information Patient not taking.Reported on 10/02/2018 cloNIDine (CATAPRES) 0.1 MG tabletIndication s:Hypertension Take 0.1 mg by mouth 2 times daily Reasons: High Blood Pressure Disorder Active atorvastatin (LIPITOR) 40 MG tabletIndication s:Mixed Dyslipidemia Take 40 mg by mouth at bedtime Reasons: Elevation of Both Cholesterol and Triglycerides in Blood Active NIFEdipine CR 24hr (ADALAT CC) 90 MG tablet Take 90 mg by mouth once daily Take on an empty stomach. 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 Swain Family History Medical History Relation Name Comments Lupus Other neice Relation Name Status Comments Other Social History Tobacco Use Types Packs/Day Years Used Date Smoking Tobacco: Never Smokeless Tobacco: Never Alcohol Use Standard Drinks/Week Comments No 0 (1 standard drink = 0.6 oz pur e alcohol) Comments Unknown Sex and Gender Information Value Date Recorded Sex Assigned at Not on file Legal Sex Female 5:14 AM SPOOLER OPERATOR Gender Identity Not on file Sexual Orientation Not on file Last Filed Vital Signs Vital Sign Reading Time Taken Comments Blood Pressure 146/89 04/01/2019 10:17 AM CDT Pulse 72 12/05/2018 10:20 AM SPOOLER OPERATOR Temperature 37 C (98.6 F) 10/05/2018 5:15 PM SPOOLER OPERATOR Respiratory Rate 16 04/01/2019 10:1 7 AM CDT Oxygen Saturation 98% 04/01/2019 10: 17 AM CDT Inhaled Oxygen Concentration - - Weight 74.8 kg (164 lb 14.4 oz) 10/05/2018 6:32 AM SPOOLER OPERATOR Height 160 cm (5' 2.99 ) 10/02/2018 9:12 AM SPOOLER OPERATOR Body Mass Index 29.22 10/02/2018 9:12 AM SPOOLER OPERATOR Plan of Treatment Health Maintenance Due Date Last Done Comments COLOGUARD (AGES 45-75) - COL ON CA SCREENING 1971 CT COLONOGRAPHY - COLON CA SCREENING 1971 FIT - COLON CA SCREENING 1971 FLEX SIG - COLON CA SCREENING 1971 MAMMOGRAM 1971 MEDICARE AWV 12 MONTHS 1971 HIV SCREENING 1986 DTAP/TDAP/TD VACCINES (1 - Tdap) 1990 PNEUMOCOCCAL VACCINE 50+ (1 of 2 - PCV) 1990 HEPATITIS B VACCINE (1 of 3 - Risk Dialysis 4-dose series) 1991 PAP with HPV 2001 ZOSTER VACCINE (1 of 2) 2021 COLON MONITORING 01/23/2023 01/23/2013, 01/23/2013 COLONOSCOPY - COLON CA SCREENING 01/23/2023 01/23/2013, 01/23/2013 Colorectal Cancer Screening 01/23/2023 COVID-19 VACCINE (1 - 2023-2 5 season) 2024 DEPRESSION SCREENING 10/30/2024 INFLUENZA VACCINE (Season Ended) 2025 HEPATITIS C SCREENING Completed 10/02/2018 HIB VACCINE Aged Out No longer eligi ble based on patient's age to complete this topic HPV VACCINE Aged Out No longer eligi ble based on patient's age to complete this topic MENINGOCOCCAL (Group B) VACCINE SHARED DECISION-MAKING Aged Out No longer eligible based on patient's age to complete this topic MENINGOCOCCAL GROUPS A/C/Y/W VACCINE Aged Out No longer eligible b ased on patient's age to complete this topic Procedures Procedure Name Priority Date/Time Associated Diagnosis Comments HEPATITIS SCREEN ACUTE Routine 10/02/2018 3:42 PM SPOOLER OPERATOR ENDOSCOPY, COLON, SCREENING Routine 01/23/2013 10:51 AM CDT from Last 3 Months or Most Recently Relevant to Health Maintenance Results * HEPATITIS SCREEN ACUTE (10/02/2018 3:42 PM SPOOLER OPERATOR) HAV Antibody IgM Non Reactive Non Reactive 10/02/2018 5:23 PM SPOOLER OPERATOR [facility] HBsAg Non Reactive Non Reactive 10/02/2018 5:23 PM SPOOLER OPERATOR [facility] HBc Antibody IgM Non Reactive Non Reactive 10/02/2018 5:23 PM SPOOLER OPERATOR [facility] HCV Antibody Screen Non Reactive Non Reactive 10/02/2018 5:23 PM SPOOLER OPERATOR [facility] HCV S/C Ratio 0.08 0.00 - 0.79 10/02/2018 5:23 PM SPOOLER OPERATOR [facility] Comment: Gifbrt-gl-goyqwo ratio (S/CO) <0.80: Non Reactive Blood BLOOD SPECIMEN / Unknown Lab Venipuncture / Unknown 10/02/2018 3:42 PM SPOOLER OPERATOR 10/02/2018 3:49 PM SPOOLER OPERATOR Narrative [facility] - 10/02/2018 5:23 PM SPOOLER OPERATOR Non Reactive - Antibodies to Hepatitis C virus (HCV) were not detected, result does not exclude early acute HCV infection. Non Reactive - Antibodies to Hepatitis C virus (HCV) were not detected, result does not exclude early acute HCV infection. Victoriano Sharpe MD LAB - CHEMISTRY ORDERABLES Sarah l Result [facility] [address] [place] [address] * ENDOSCOPY, COLON, SCREENING (01/23/2013 10:51 AM CDT) Narrative [facility] ENDOSCOPY - 01/23/2013 10:51 AM CDT Procedure Note Aldo Phelps MD - 01/23/2013 9:40 AM CDT Aldo Phelps MD GI PROCEDURE ORDERABLES Sarah l Result [facility] ENDOSCOPY from Last 3 Months or Most Recently Relevant to Health Maintenance Insurance [facility] [employer] MEDICARE [facility] SELF PAY NO INSURANCE Member Subscriber Plan / Payer (Ef fective for All Dates) Name:PaulQuin Member ID:Not on file Relation to Subscriber:Not on file Name:YARELI CANCINOKYLEBECKY Emelia Subscriber ID:Not on file (Home) Address: [facility] [place] [address] Payer ID:Not on file Group ID:Not on file Type:Self Pay Address: [place], [place] [facility] [employer] Advance Directives * Full Code (Latest Code Status on File) Date Activated Date Inactivated Comments 10/02/2018 3:49 PM 10/05/2018 8:24 PM * Full Code Date Activated Date Inactivated Comments 10/02/2018 9:04 AM 10/02/2018 3:49 PM * FULL RESUSCITATION Date Activated Date Inactivated Comments 01/16/2013 4:34 AM 01/24/2013 3:11 PM Care Teams Joint Setter Relationship Specialty Start Date End Date Vinny Lugo DO [address] [place] [id number] PCP - General 06/28/22 Vinny Lugo DO [address] [place] [address] 06/28/22
--- OUTSIDE RECORDS SUMMARY | 2025-02-21 00:25 | XMS_ITS | CONTINUITY OF CARE DOCUMENT ---
Author Name malena guy Address Unknown Organization [facility] Address [address] [place] [address] Phone [phone] Care Team Providers Care Educational Paraprofessional Name Role Phone Abdulkadir Montez MD Unavailable LLOYD HORNE MD Unavailable [phone] INSURANCE PROVIDERS Payer name Policy type / Coverage type [place] red green party ID [facility] [id number] Other [id number]
--- OUTSIDE RECORDS SUMMARY | 2025-02-21 00:25 | XMS_ITS | Encounter Summary ---
Author Organization [facility] Address [address] [place] [address] Care Team Providers Care Contracting Engineer Name Role Phone Jian Gallagher MD Primary Care Provider [phone] Edwardo Swain MD Unavailable [phone] Kerri Rodriguez RN Unavailable [phone] Meri Valdez RN Unavailable [phone] Vinny Lugo DO Primary Care Provider [phone] Vj Oreilly MD Unavailable [phone] Miscellaneous, Not In File Unavailable Unava ilable Shun Germain DO Primary Care Provider [phone] Encounter Details Date Type Department Care Team (Late st Contact Info) Description 12/09/2024 Telephone [facility] Radiology [facility] [address] [place] [address] Courtney Keenan RN Social History Tobacco Use Types Packs/Day Years Used Date Smoking Tobacco: Never Smokeless Tobacco: Never Alcohol Use Standard Drinks/Week Comments No 0 (1 standard drink = 0.6 oz pur e alcohol) OASIS D0700: Social Isolation Answer Da te Recorded Frequency of experiencing loneliness or isolatio n Never 12/13/2024 Social Connection and Isolat ion Panel [NHANES] Answer Date Recorded In a typical week, how many times do you talk on the phone with family, friends, or neighbors? More than three times a week 10/06/2021 How often do you get togethe r with friends or relatives? More than three times a week 10/06/2021 How often do you attend chur ch or adventism services? More than 4 times per year 10/06/2021 Do you belong to any clubs o r organizations such as jehovah's witness groups, unions, fraternal or athletic groups, or school groups? No 10/06/2021 How often do you attend meet ings of the clubs or organizations you belong to? Never 10/06/2021 Are you , , di vorced, , never , or living with a partner? 10/06/2021 AUDIT-C Answer Date Recorded Q1: How often do you have a drink containing alcohol? Never 12/04/2024 Q2: How many drinks containi ng alcohol do you have on a typical day when you are drinking? Patient does not drink Frequency of Binge Drinking Not on file 02/2025 Overall Financial Resource Strain (CARDIA) Answe r Date Recorded How hard is it for you to pa y for the very basics like food, housing, medical care, and heating? Not hard at all 10/06/2021 Hunger Vital Sign Answer Date Recorded Within the past 12 months, y ou worried that your food would run out before you got the money to buy more. Never true 10/06/20 21 Within the past 12 months, t he food you bought just didn't last and you didn't have money to get more. Never true 10/06/2021 PRAPARE - Transportation Answer Date Re corded In the past 12 months, has l ack of transportation kept you from medical appointments or from getting medications? No 05/2021 In the past 12 months, has l ack of transportation kept you from meetings, work, or from getting things needed for daily living? No 10/06/2021 Housing Stability Vital Sign Answer Everette e Recorded In the last 12 months, was t here a time when you were not able to pay the mortgage or rent on time? No 10/06/2021 In the last 12 months, how many places have you lived? 1 10/06/2021 In the last 12 months, was t here a time when you did not have a steady place to sleep or slept in a long term (including now)? No 10/06/2021 Personal Safety Answer Date Recorded Have you ever been in or are you currently in a harmful physical or emotional relationship or is someone making you feel afraid or unsafe? Denies 12/04/2024 Comments No Sex and Gender Information Value Date Recorded Sex Assigned at Not on file Legal Sex Female 2:49 AM COMPLIANCE OFFICER Gender Identity Female 02/26/2020 11:09 AM CDT Sexual Orientation Choose not to disclose 2019 11:10 AM CDT Sexual Orientation Straight 02/26/2020 11 :10 AM CDT documented as of this encounter Plan of Treatment Not on file documented as of this encounter Visit Diagnoses Not on filedocumented in this encounter Additional Health Concerns Infection Onset Date Last Indicated Resolved Time Ring Surveillance Comment:C.auris Ring Surveillance Flag is placed and removed manually by IP. However, if the patient is discharged before their swab is collected, it will remain on a patient's chart for 7 days after discharge in case the patient is re-admitted elsewhere. Pt is undergoing Ring Surveillance for admission to [facility]. FRANCHESCA Curran [facility] One time sweep 12/10/2024 12/10/2024 12/12/2024 1:[address] documented as of this encounter Care Teams Contracting Engineer Relationship Specialty Start Date End Date Jian Gallagher MD [address] [place] [address] PCP - General 01/28/13 12/10/24 Vinny Lugo DO [address] [place] [address] [address] [place] [address] PCP - General Family Medicine 12/11/24 02/05/25 Shun Germain DO [address] [place] [address] [address] [place] [address] PCP - General Internal Medicine 02/06/25 Edwardo Swain MD [address] [facility] [address] [place] [address] Referring Physician Nephrology 09/04/18 Kerri Rodriguez, RN Veterinary Inspector 10/05/20 Meri Valdez, RN [address] [facility] [address] [place] [address] Registered Nurse Veterinary Inspector 06/03/21 Vj Oreilly MD [address] [facility] [id number] [place], [place] [id number] Consulting Physician Cardiothoracic Surgery 12/12/24 Miscellaneous, Not In File 12/12/24 documented as of this encounter
--- OUTSIDE RECORDS SUMMARY | 2025-02-21 00:25 | XMS_ITS | Clinical Summary ---
Author Organization [facility] Address [address] [place] [address] Care Team Providers Care Law Reporter Name Role Phone Jian Gallagher MD Primary Care Provider Allergies Active Allergy Reactions Criticality Noted Date Comments Merritt Inhibitors Angioedema High 08/30/2017 Penicillins Swelling Low 08/30/2017 Medications atorvastatin (LIPITOR) 40 mg tablet Take 20 mg by mouth late in the day . Active NIFEdipine (ADALAT CC) 90 mg Extended Release tablet Take 1 Tablet by mouth daily. 6 09/26/2017 Active EPOGEN 20,000 unit/mL Solution 06/18/2018 Ac tive ferrous fumarate (FERRETTS) 325 mg (106 mg iron) Tablet Take 325 mg by mouth 2 times daily. Active cloNIDine HCl (CATAPRES) 0.2 mg tablet 07/24/2018 Active Active Problems Problem Noted Date Diagnosed Date Anemia of chronic renal failure, stage 4 (severe ) 08/30/2017 Family History Medical History Relation Name Comments Diabetes Father Heart Disease Father Relation Name Status Comments Brother Alive Father Alive Mother Alive Sister 1 Alive Sister 2 Alive Sister 3 Alive Social History Tobacco Use Types Packs/Day Years Used Date Smoking Tobacco: Never Smokeless Tobacco: Never Alcohol Use Standard Drinks/Week Comments No 0 (1 standard drink = 0.6 oz pur e alcohol) Comments No Sex and Gender Information Value Date Recorded Sex Assigned at Not on file Legal Sex Female 2:09 PM CDT Gender Identity Not on file Sexual Orientation Not on file Last Filed Vital Signs Vital Sign Reading Time Taken Comments Blood Pressure 130/84 10/11/2018 2:30 PM COOPERATIVE EDUCATION DIRECTOR Pulse 60 10/11/2018 2:30 PM COOPERATIVE EDUCATION DIRECTOR Temperature 36.7 C (98.1 F) 10/11/2018 2:30 PM COOPERATIVE EDUCATION DIRECTOR Respiratory Rate 11 08/30/2017 9:30 AM CDT Oxygen Saturation 98% 10/11/2018 2:30 PM COOPERATIVE EDUCATION DIRECTOR Inhaled Oxygen Concentration - - Weight 66 kg (145 lb 9.6 oz) 10/11/2018 2:30 PM COOPERATIVE EDUCATION DIRECTOR Height 160 cm (5' 3 ) 10/11/2018 2:30 PM COOPERATIVE EDUCATION DIRECTOR Body Mass Index 25.79 10/11/2018 2:30 PM COOPERATIVE EDUCATION DIRECTOR Plan of Treatment Health Maintenance Due Date Last Done Comments DTAP/TDAP/TD VACCINES (1 - Tdap) 1990 HEPATITIS B VACCINES (1 of 3 - 19+ 3-dose series) 07/01 ZOSTER VACCINE (1 of 2) 1990 HPV/Cotest (21-29) 1992 CERVICAL CANCER SCREENING 2001 HPV/Cotest (30-65) 2001 PAP SMEAR 2001 BREAST CANCER SCREENING 2011 FIT-DNA Q 3 years 2016 FIT/FOBT Q 1 year 2016 Flex Sig/CT Colonography Q 5 years 2016 COLORECTAL SCREENING 01/23/2023 01/23/2013 Colorectal Cancer Screening 01/23/2023 INFLUENZA VACCINE (#1) 2024 Insurance Care Teams Law Reporter Relationship Specialty Start Date End Date Jian Gallagher MD [address] [place] [phone] PCP - General Internal Medicine 08/30/17
--- OUTSIDE RECORDS SUMMARY | 2025-02-21 00:26 | XMS_ITS ---
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 Marked as Active Follow-up on 09/14/2019 Reason: Transplanted at [facility] Kidney CoordinatorKerri Rodriguez RN Fax: N/A Email: N/A [place] Organ Diagnosis Organ Primary Contributory Kidney Other, Specify - LUPUS NEPHRITIS Retransplant Diagnosis Organ Primary Contributory Kidney Other, Specify - LUPUS NEPHRITIS Infection History Noted Survival Infection Treatment Organism Resolved 12/31/2024 5 years 3 months Bacterial endocarditis 02/17/2020 156 days E coli infection 01/26/2020 134 days COVID-19 virus infection 01/21/2020 129 days UTI (urinary tract infection) 12/09/2019 86 days Wound infection after surgery Donor Information Organ ABO Source Meets Risk Criteria HLA Match Mismatches Cross Match Left Kidney Transplanted B DBD No A: B: DR: Left Kidney Donor Serology Results Anti-CMV CMV IgG: Positive EBV IgG EBV VCA IgG: Negative Anti-HBcAb HBC Total: Negative HBsAg HBsAg: Negative HBV DNA No results on file Anti-HCV HCV: Negative Anti-HIV I/II No results on file Anti-HTLV I/II HTLV: Not Done RPR/VDRL RPR: Negative EBV IgM EBV VCA IgM: Negative HBsAb HBsAb: Not Done EBNA No results on file SARS CoV-2 No results on file Care Team Name Role Phone Fax Email Kerri Rodriguez RN Kidney Coordinator [phone] N/A N/A Kerri Rodriguez RN Energy Rater [phone] N/A N/A Srinivasan Osorio RN Secondary Coordinator [phone] N/A N/A Heide Wright Primary Mechanical Engineering Coop N/A N/A N/A Edwardo Swain MD Referring Physician [phone] N/A Tiffanie Morales Header Up [phone] N/A N/A Rosa Morris Secondary Mechanical Engineering Coop N/A N/A N/A Events Post-Transplant Pre-Transplant Admitted: 09/13/2019 Referred: 08/21/2017 Transplanted: 09/14/2019 Evaluation began: 7 Discharged: 09/19/2019 Center waitlisted: 8 Dialysis History Dialysis History Start End Type Comments Center 08/11/2022 Hemjessica GarciaW-F AM [facility] 04/21/2021 08/10/2022 Hemo Andreina-W-F AM [facility] Information Center Phone Fax Address [facility] [phone] [address] [facility] [address] [facility] [phone] [address] [facility] [address]
--- OUTSIDE RECORDS SUMMARY | 2025-02-21 00:26 | XMS_ITS ---
Author Organization [facility] al Address [address] [place] [address] Care Team Providers Care Flat Drier Name Role Phone Edwardo Swain MD Unavailable [phone] Kerri Rodriguez RN Unavailable Meri Valdez RN Unavailable [phone] Vj Oreilly MD Unavailable [phone] Miscellaneous, Not In File Unavailable Unava ilable Shun Germain DO Primary Care Provider [phone] Transplant Episode Kidney Candidate [facility] ([place], [place]) [facility] waitlisted on 10/27/2021 Marked as Inactive on 11/13/2024 Reason: 07 - Temporarily Too Sick Kidney CoordinatorMeri Valdez RN Fax: N/A Email: N/A Scores Score Value Updated Exceptions/Reas ons CPRA Not available EPTS (Calc) 52 02/21/2025 [place] Organ Diagnosis Organ Primary Contributory Kidney Other, Specify - LUPUS NEPHRITIS Retransplant Diagnosis Organ Primary Contributory Kidney Systemic Lupus Erythematosus Care Team Name Role Phone Fax Email Meri Valdez RN Kidney Coordinator [phone] N/A N/A Edwardo Swain MD Referring Physician [phone] N/A Events Pre-Transplant Referred: 03/12/2021 Evaluation began: 06/11/2021 Committee: 10/26/2021 UNOS qualified: 04/21/2021 Center waitlisted: 10/27/2021 Dialysis History Dialysis History Start End Type Comments Center 08/11/2022 [facility] 04/21/2021 08/10/2022 [facility] Information Center Phone Fax Address [facility] [phone] [facility] [facility] [address] [address] [facility] [phone] [address] [facility] [address]
--- OUTSIDE RECORDS SUMMARY | 2025-02-21 00:26 | XMS_ITS | Clinical Summary ---
Author Organization [facility] Address [address] [place] [address] Phone Care Team Providers Care Cnc Mill Operator Name Role Phone Unavailable Primary Care Provider Unavailabl e Medications mycophenolate (CELLCEPT) 500 MG tablet 1 tab/cap bid 4 07/11/2016 Active pravastatin (PRAVACHOL) 40 MG tablet 1 tab/cap qday 0 01/15/2014 Active hydrALAZINE (APRESOLINE) 50 MG tablet 1 tab/cap tid 0 08/29/2017 Active predniSONE (DELTASONE) 5 MG tablet TAKE 1 TABLET BY MOUTH EVERY DAY 5 12/21/2017 Active furosemide (LASIX) 20 MG tablet 2 tabs qAM and 1 tab qPM 4 07/17/2017 Active mycophenolate (CELLCEPT) 500 MG tablet TAKE 1 TABLET BY MOUTH TWICE A DAY 4 02/24/2014 Active NIFEdipine CC (ADALAT CC) 90 MG 24 hr tablet Take 1 tablet (90 mg total) by mouth 1 (one) time each day 90 tablet 4 04/30/2019 Active cloNIDine (CATAPRES) 0.2 MG tablet TAKE 1 TABLET BY MOUTH TWICE A DAY 180 tablet 3 07/24/2019 Active carvedilol (COREG) 25 MG tablet Take 1 tablet (25 mg total) by mouth 2 (two) times a day with meals 60 tablet 11 02/17/2022 Active dilTIAZem CD (CARDIZEM CD) 120 MG 24 hr capsule TAKE 1 CAPSULE BY MOUTH EVERY DAY 90 capsule 3 05/10/2022 Active Active Problems Problem Noted Date Diagnosed Date Hyperkalemia 12/24/2018 End stage renal disease 10/07/2018 Renal osteodystrophy 10/07/2018 Stage 5 chronic kidney disease 09/11/2017 Anemia in chronic kidney disease 09/23/2015 Other proteinuria 09/22/2015 Chronic kidney disease, stage 3 (moderate) 09/22 Hypertensive chronic kidney disease with stage 1 through stage 4 chronic kidney disease, or unspecified chronic kidney disease 09/22/2015 Glomerular disease in systemic lupus erythematos us 11/18/2013 Essential (primary) hypertension 12/16/2012 Systemic lupus erythematosus with organ or system involvement 12/16/2012 Acute kidney failure 12/16/2012 Family History Medical History Relation Comments Kidney disease Father Kidney stone Neg Hx Relation Status Comments Father Social History Tobacco Use Types Packs/Day Years Used Date Smoking Tobacco: Never Alcohol Use Standard Drinks/Week Comments No 0 (1 standard drink = 0.6 oz pur e alcohol) Comments Unknown Sex and Gender Information Value Date Recorded Sex Assigned at Not on file Legal Sex Female 7:41 AM MST Gender Identity Not on file Sexual Orientation Not on file Last Filed Vital Signs Vital Sign Reading Time Taken Comments Blood Pressure 143/86 12/20/2018 12:01 AM SUPERVISOR WET END Pulse - - Temperature 37.1 C (98.8 F) 07/09/2018 12:01 AM CDT Respiratory Rate - - Oxygen Saturation - - Inhaled Oxygen Concentration - - Weight 63.9 kg (140 lb 14.4 oz) 019 12:01 AM SUPERVISOR WET END Height 160 cm (5' 3 ) 12/20/2018 12:01 AM SUPERVISOR WET END Body Mass Index 24.96 12/20/2018 12:01 AM SUPERVISOR WET END Plan of Treatment Health Maintenance Due Date Last Done Comments Influenza Vaccine (Season Ended) 2025
--- OUTSIDE RECORDS SUMMARY | 2025-02-21 00:26 | XMS_ITS | Encounter Summary ---
Author Organization [facility] Healthcare Address [address] [place] [address] Care Team Providers Care Assistant Infant Toddler Teacher Name Role Phone Jian Gallagher MD Primary Care Provider [phone] Edwardo Swain MD Unavailable [phone] Kerri Rodriguez RN Unavailable [phone] Meri Valdez RN Unavailable [phone] Vinny Lugo DO Primary Care Provider [phone] Vj Oreilly MD Unavailable [phone] Miscellaneous, Not In File Unavailable Unava ilable Shun Germain DO Primary Care Provider [phone] Encounter Details Date Type Department Care Team (Late st Contact Info) Description 02/11/2021 Telephone [facility] [address] [place] [address] Transcribed Order, Provider Social History [...] Friends and Family Not asked 09/14/2019 Attends [employer] Not asked 09/14 Active Member of [...] on file 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 Pt needs transfer swab, ordered 12/04/24 [...] Surveillance for admission to [facility] One time sweep 12/10/2024 12/10/2024 12/12/2024 1:[address] documented as of this encounter Care Teams Assistant Infant Toddler Teacher Relationship Specialty Start Date End Date Jian Gallagher MD [address] [place] [address] PCP - General 01/28/13 12/10/24 Vinny Lugo DO [address] [place] [address] [address] [place] [address] PCP - General Family Medicine 12/11/24 02/05/25 Shun Germain DO [address] [place] [address] [address] [place] [address] PCP - General Internal Medicine 02/06/25 Edwardo Swain MD [address] [facility] [address] [place] [address] Referring Physician Nephrology 09/04/18 Kerri Rodriguez, RN Elastic Tape Inserter 10/05/20 Meri Valdez, RN [address] [facility] [address] [place], [place] [id number] Registered Nurse Elastic Tape Inserter 06/03/21 Vj Oreilly MD [id number] [place], [place] [id number] Consulting Physician Cardiothoracic Surgery 12/12/24 Miscellaneous, Not In File 12/12/24 documented as of this encounter
--- OUTSIDE RECORDS SUMMARY | 2025-02-21 00:27 | XMS_ITS | Referral Summary ---
Author Organization [facility] al Address [address] [place] [address] Care Team Providers Care Ski Top Trimmer Name Role Phone Edwardo Swain MD Unavailable [phone] Kerri Rodriguez RN Unavailable Meri Valdez RN Unavailable [phone] Vj Oreilly MD Unavailable Miscellaneous, Not In File Unavailable Unava ilable Shun Germain DO Primary Care Provider [phone] Encounters Date Type Department Care Team Description 02/10/2025 Telephone [facility] Transplant Kidney [address] [facility] [address] Mailstop [phone] [place] [address] Meri Valdez, RN 02/10/2025 Telephone [facility] Transplant Kidney [address] [facility] [address] Mailstop [phone] [place] [address] Chiara Rahman 02/06/2025 1:00 PM CDT Office Visit [facility] Medical Group Cardiology [address] [facility] [address] [place] [address] Carmita Clayton NP S/P MVR (mitral valve repair); End-stage renal disease on hemodialysis (HCC); History of anemia due to chronic kidney disease; Hospital discharge follow-up 01/30/2025 Telephone [facility] Cardiothoracic Surgery [address] [facility] 8th Floor [address] [place] [phone] Eusebio Lackeyylee 01/22/2025 Telephone [facility] Cardiothoracic Surgery [address] [facility] 8th Floor [address] Room [address] [address] ZiyadTaty 01/17/2025 Telephone [facility] Cardiothoracic Surgery [address] [facility] 8th Floor [address] Room [address] [place] [phone] Jennifer Montanez NP 01/17/2025 Documentation [facility] Cardiothoracic Surgery [address] [facility] 8th Floor [address] Room [address] [place] [phone] Jennifer Montanez NP 01/16/2025 5:24 PM CDT - 01/16/2025 11:59 PM CDT Hospital Encounter [facility] [address] [place] [address] S/P MVR (mitral valve repair) Discharge Disposition: Discharge to home or self care 01/16/2025 Documentation [facility] Infectious Diseases [address] [place] [address] [address] [place] [address] Jessica Montenegro Opat Progress/Monitoring 01/16/2025 4:15 PM CDT - 01/16/2025 11:59 PM CDT Hospital Encounter [facility] Cardiac Diagnostic Lab [address] [facility] 8th [place] [address] Bacteremia due to Enterococcus Discharge Disposition: Discharge to home or self care 01/16/2025 8:15 AM CDT Home Care Visit [place] [address] [address] [place] [phone] Tiffanie Mauricio RN SN OASIS DISCHARGE 01/16/2025 1:00 PM CDT Office Visit [facility] Radiology, Interventional Radiology [address] [facility] [address] [place] [address] Tfifanie Wall PA Bacteremia due to Enterococcus (Primary Dx); Acute bacterial endocarditis; Central venous catheter in place 01/15/2025 Telephone [facility] Cardiology [address] [facility] 8th [place] [address] [place] [address] Tracy Cuadra 01/14/2025 1:31 PM CDT - 01/14/2025 11:59 PM CDT Hospital Encounter [place] [id number] [place] [address] Discharge Disposition: Discharge to home or self care 01/14/2025 Telephone [facility] Cardiothoracic Surgery [address] [facility] 8th Floor [address] [place] [address] Taty Lackey 01/14/2025 11:00 AM CDT Office Visit [facility] Surgery [address] [facility] [address] [place] [phone] Vj Oreilly MD Bacteremia due to Enterococcus (Primary Dx); S/P MVR (mitral valve repair) 01/13/2025 Orders Only [facility] Home Care Services [address] [place] [address] [address] [place] [phone] Sia Chris, [facility] 01/09/2025 Documentation [facility] Infectious Diseases [address] [facility] [address] [place] [phone] Adali Last Progress/Monitoring 01/07/2025 6:10 PM CDT - 01/07/2025 11:59 PM CDT Hospital Encounter [address] [address] Discharge Disposition: Discharge to home or self care 01/07/2025 9:00 AM CDT Home Care Visit [facility] [place] [address] [address] [place] [address] Mario Cleveland OT OT INITIAL EVALUATION 01/07/2025 10:45 AM CDT Home Care Visit [address] [place] [address] Mara Clarke, FRANCHESCA SN HOME VISIT 01/06/2025 Telephone [facility] Radiology, Interventional Radiology [address] [facility] [address] [place] [address] Sia Mckeon, RN Appointment 01/06/2025 Orders Only [facility] Infectious Diseases [address] [facility] [address] [place] [phone] Irina Jane, TESSIE Bacteremia due to Enterococcus (Primary Dx); Acute bacterial endocarditis 01/03/2025 Documentation [facility] Infectious Diseases [address] [facility] [address] [place] [address] Adali Last Progress/Monitoring 01/02/2025 Home Care Visit [address] [place] [address] Mario Cleveland OT TELEPHONE ENCOUNTER 12/31/2024 Plan of Care Documentation [address] [place] [address] 12/31/2024 2:59 PM ARMATURE VARNISHER - 12/31/2024 11:59 PM ARMATURE VARNISHER Hospital Encounter [facility] [address] [place] [address] Discharge Disposition: Discharge to home or self care 12/31/2024 Documentation [facility] Infectious Diseases [address] [facility] [address] [place] [address] Adali Last Progress/Monitoring 12/31/2024 1:15 PM ARMATURE VARNISHER Home Care Visit [address] [place] [address] Mara Clarke, FRANCHESCA SN OASIS START OF CARE 12/30/2024 Telephone [facility] Infectious Diseases [address] [facility] [address] [place] [address] Adali Last 12/30/2024 Home Care Visit [facility] [address] [place] [address] Meryl Todd RN SN NON OASIS DISCHARGE 12/30/2024 2:40 PM ARMATURE VARNISHER Office Visit [facility] Infectious Diseases [address] [place] [address] [address] [place] [phone] Irina Jane NP Bacteremia due to Enterococcus (Primary Dx); Encounter for screening examination for sexually transmitted disease; Kidney transplant recipient; Acute bacterial endocarditis 12/27/2024 Documentation [facility] Infectious Diseases [address] [place] [phone] Adali Last Progress/Monitoring 12/25/2024 Telephone [facility] Cardiothoracic Surgery [address] [place] [address] Medicine 8th Floor [address] Room [address] [place] [phone] Taty Lackey 12/25/2024 Telephone [facility] Cardiothoracic Surgery [address] [place] [address] 8th Floor [address] Room [address] [place] [phone] Jennifer Montanez NP 12/24/2024 Home Care Visit [address] [place] [address] Maria Isabel Carrillo, DAMIAN TELEPHONE ENCOUNTER 12/24/2024 1:45 PM ARMATURE VARNISHER - 12/24/2024 11:59 PM ARMATURE VARNISHER Hospital Encounter [address] [address] Discharge Disposition: Discharge to home or self care 12/24/2024 10:30 AM ARMATURE VARNISHER Home Care Visit [address] [place] [address] Durga Wade RN SN HOME VISIT 12/20/2024 Documentation [facility] Infectious Diseases [address] [place] [address] [address] [place] [phone] Adali Last Progress/Monitoring 12/17/2024 1:56 PM ARMATURE VARNISHER - 12/17/2024 11:59 PM ARMATURE VARNISHER Hospital Encounter [facility] [address] [place] [phone] Discharge Disposition: Discharge to home or self care 12/17/2024 12:30 PM ARMATURE VARNISHER Home Care Visit [facility] [address] [facility] [address] [place] [address] Durga Wade RN SN HOME VISIT 12/13/2024 Plan of Care Documentation [facility] [address] [facility] [address] [place] [address] 12/13/2024 Documentation [facility] Infectious Diseases [address] [facility] [address] [place] [address] Adali Last Opat Progress/Monitoring 12/13/2024 2:00 PM ARMATURE VARNISHER Home Care Visit [facility] [address] [facility] [address] [place] [address] Josef Boyd RN SN NON OASIS START OF CARE 12/12/2024 Orders Only [facility] Home Care Services [address] [facility] [address] [place] [address] Vickey Sauer, [facility] 11/24/2024 11:20 PM ARMATURE VARNISHER - 12/12/2024 4:45 PM ARMATURE VARNISHER Hospital Encounter [address] [address] Delroy Troncoso MD Roberts, Harold Gene, MD S/P MVR (mitral valve repair) (Primary Dx); Subacute bacterial endocarditis [I33.0]; Allergy to ampicillin; Severe mitral regurgitation Discharge Disposition: Discharge to home, home health skilled care 12/10/2024 Documentation [facility] Infectious Diseases [address] [facility] [address] [place] [address] Shala Castillo NP OPAT 12/09/2024 Telephone [facility] [place] [address] Courtney Keenan RN 12/04/2024 8:00 AM ARMATURE VARNISHER Ancillary Procedure [facility] Operating Room 1 [place] [address] 12/04/2024 8:00 AM ARMATURE VARNISHER - 12/04/2024 2:55 PM ARMATURE VARNISHER Surgery [facility] Operating Room 1 [place] [address] Vj Oreilly MD REPAIR MITRAL VALVE radial valuoplasty and debridement 12/04/2024 7:56 AM ARMATURE VARNISHER Anesthesia Event [facility] Operating Room 1 [place] [address] Fernando Chow MD PhD Davida Calixto, SPOOLING OPERATOR 12/02/2024 Documentation [facility] Transplant Kidney [address] [facility] [address] Mailstop [phone] [place] [address] Yanira Gonzalez Appointment/Schedules 12/02/2024 Documentation [facility] Transplant Kidney [address] [facility] [address] Mailstop [phone] [place] [address] Meri Valdez, FRANCHESCA cancel testing 12/02/2024 9:48 AM ARMATURE VARNISHER - 12/02/2024 11:13 AM ARMATURE VARNISHER Surgery [facility] 1 [place] [address] Jeramie José MD LEFT HEART CATHETERIZATION WITH NO CORONARY ANGIOGRAPHY WITH AND WITHOUT LEFT VENTRICULOGRAM [address] 11/27/2024 11:54 AM ARMATURE VARNISHER Anesthesia Event [facility] 1 [place] [address] Troy Bermeo MD Silver, Kate Elizabeth, CRNA 11/25/2024 Orders Only [facility] Medical Group Cardiology [address] [place] [address] Anamika Peterson MD from Last 3 Months Allergies Active Allergy Reactions Criticality Noted Date Comments Merritt Inhibitors Swelling,Angioedema High 08/30/2017 Ibuprofen Other (See comments) Low 06/29/2020 Lisinopril Anaphylaxis,Angioedema High 01/15/2013 Medications predniSONE (DELTASONE) 5 mg tabletIndicati ons:Organ Transplant Rejection TAKE 1 TABLET BY MOUTH EVERY DAY 90 tablet 3 4 Active atorvastatin (LIPITOR) 20 mg tabletIndicati ons:hyperlipid emia Take 1 tablet (20 mg total) by mouth daily 90 tablet 3 4 Active cholecalcifero l (VITAMIN D-3) 2000 unit capsuleIndicat ions:Vitamin D Deficiency Take 1 capsule (2,000 Units total) by mouth daily 90 capsule 3 4 05/16/20 25 Active tacrolimus 1 mg immediate-rele ase capsuleIndicat ions:Preventio n of Liver Transplant Rejection Take 1 capsule (1 mg total) by mouth 2 (two) times a day 60 capsule 11 4 Active furosemide (LASIX) 80 mg tabletIndicati ons:Renal Disease with Edema Take 1 tablet (80 mg total) by mouth 4 (four) times a week 16 tablet 11 5 12/14/19 26 Active acetaminophen (TYLENOL) 325 mg tabletIndicati ons:Pain Take 2 tablets (650 mg total) by mouth every 6 (six) hours 5 Active aspirin 81 mg enteric coated tabletIndicati ons:prevention of thrombosis Take 1 tablet (81 mg total) by mouth daily 5 12/13/19 26 Active carvediloL (COREG) 25 mg tabletIndicati ons:hypertensi on Take 1 tablet (25 mg total) by mouth 2 (two) times a day with meals Active diltiazem LA (CARDIZEM LA) 120 mg 24 hr tabletIndicati ons:hypertensi on Take 1 tablet (120 mg total) by mouth daily Active doxazosin (CARDURA) 8 mg tabletIndicati ons:hypertensi on Take 1 tablet (8 mg total) by mouth daily Active biotin 10,000 mcg capsule 4 Active folic acid/vit B complex and C (DIALYVITE 800 ORAL) 4 Active carvediloL (COREG) 3.125 mg tabletIndicati ons:hypertensi on Take 1 tablet (3.125 mg total) by mouth 2 (two) times a day with meals 60 tablet 1 5 02/07/20 Discontinu ed(Alterna te therapy) 0.9 % sodium chloride ([facility] sodium chloride 0.9%) injectionIndic ations:Line care Administer 10 mL into catheter 2 (two) times a day as needed for line care 02/07/20 Discontinu ed(Therapy completed) heparin (heparin flush) 10 unit/mL syringeIndicat ions:Maintain Patency of Indwelling Vascular Catheter Administer 5 mL (50 Units total) into catheter 2 (two) times a day as needed (Line care) 02/07/20 Discontinu ed(Therapy completed) Active Problems Patient Care Coordination No te Formatting of this note migh t be different from the original. Verbal Consent: Katelynn (mother) Specialty: [facility] Labs: [facility] in [place] [phone] q-bi-weekly, FK, q-monthly, BK, UPE; q3-Routine. HH: Did not have a preference. List was provided. Problem Noted Date Diagnosed Date Encounter for screening exam ination for sexually transmitted disease 12/31/2024 Bacterial endocarditis 12/31/2024 Bacteremia due to Enterococcus 12/31/2024 Assessment & Plan (12/31/2024 8:52 AM ARMATURE VARNISHER): KALEN 11/27/24 showed anterior MV leaflet vegetation with concern for abscess formation without valve perforation. Potential sources include transient bacteremia related to c-scope with 18 polyps removed in July 2024, urinary (did have UCx with E.faecalis at OSH), AVF/HD related. She is now s/p MV repair on 12/04/24 -24 mm Physio ring. Sternal plating for closure. OR findings of vegetation. No OR cx sent. Blood cultures + 11/09/24 and 11/11/24, cleared 11/14/24. Planning for 6 weeks of IV abx from date of surgical source control. Patient is clinically doing well at this time. - continue total 6 week course IV Ampicillin 2 g Q12 + CTX 2 g Q12, EOT 01/15/25. - 12/24/24 labs reviewed. - I discussed with the patient my impression, the imaging findings, and treatment plan in detail with a focus on the etiology, natural history, and management of symptoms. - I discussed with the patient the rationale for treatment, culture results, risk of recurrent infection, signs/symptoms of recurrent infection, and to contact ID clinic with any questions or concerns. Severe mitral regurgitation 11/29/2024 Assessment & Plan (12/07/2024 1:04 PM ARMATURE VARNISHER): S/p radical debridement and reconstruction mitral valve Routine post op care TTE - Eccentric LV hypertrophy. Normal left ventricular systolic function. The Ejection Fraction (Arroyo's) is measured at 58 %. Left ventricular diastolic function is indeterminate in this study due to the presence of mitral valve repair or replacement. The average global longitudinal strain rate is abnormal. 2. Normal right ventricular size. RV function visually appears normal. 3. There is mild mitral valve regurgitation. The mitral valve leaflets are status post repair. A mitral annuloplasty ring is present. Mean gradient of 5.65 mmHg at HR of 80 bpm. 4. There is mild tricuspid regurgitation. 5. The IVC (inferior vena cava) was <2.1 cm and collapsibility >50%. Assessment & Plan (12/01/2024 11:53 AM ARMATURE VARNISHER): Pre-OP MV repair/replacement Dr. Troncoso to discuss with Dr. Oreilly and determine an OR plan Assessment & Plan (11/30/2024 11:12 AM ARMATURE VARNISHER): Pre-OP MV repair/replacement Dr. Troncoso to discuss with Dr. Oreilly and determine an OR plan Moderate protein-calorie malnutrition 11/27/2024 Assessment & Plan (12/08/2024 1:26 PM ARMATURE VARNISHER): BMI 22.66 Daily weights Encourage PO intake Seen by manifold builder Tisha plant based caloric supplements Vegan/renal diet Assessment & Plan (12/01/2024 11:52 AM ARMATURE VARNISHER): Daily weights Encourage PO intake Seen by manifold builder Added supplements Vegan/renal diet Assessment & Plan (11/30/2024 11:11 AM ARMATURE VARNISHER): Daily weights Encourage PO intake Seen by manifold builder Added supplements Vegan/renal diet Allergy to ampicillin 11/26/2024 Assessment & Plan (12/02/2024 2:30 PM ARMATURE VARNISHER): S/p Antibiotic dose challenge-no reaction Continue Ampicillin 2 Gm q 12 Assessment & Plan (12/01/2024 11:52 AM ARMATURE VARNISHER): S/p Antibiotic dose challenge-no reaction Continue Ampicillin 2 Gm q 12 Assessment & Plan (11/29/2024 1:21 PM ARMATURE VARNISHER): S/p Antibiotic dose challenge-no reaction Continue Ampicillin 2 Gm q 12 Assessment & Plan (11/27/2024 1:29 PM ARMATURE VARNISHER): Consult Allergy Team to perform a abx challenge Waiting to hear from ID on appropriate dosing Assessment & Plan (11/26/2024 3:04 PM ARMATURE VARNISHER): Consult Allergy Team to perform a abx challenge Waiting to hear from ID on appropriate dosing Endocarditis 11/25/2024 Assessment & Plan (12/09/2024 11:42 AM ARMATURE VARNISHER): - admitted from OSH for complains of fevers and anemia - At OSH, blood cultures were positive for E. Faecalis - TTE showed EF 65-70% and a small mobile echogenic mass on mitral valve - Subsequent KALEN demonstrated vegetation on anterior mitral valve leaflet - ID consulted: appreciate recs. Continue Ampicillin (de-sensitized) and Ceftriaxone. Await ID final recs once OR cxs finalized -KALEN: Left ventricular systolic function appears normal. There is severe mitral regurgitation. There are 2 MR jets-together MR is severe. There is evidence of a vegetation attached to the anterior leaflet of the mitral valve. The vegetation is undergoing abscess formation. No valve perforation. No vegetation on other valves. No aortic root abscess. Normal RV size and function. - s/p MV repair - ID following. IV ceftriaxone eot 01/15. IR to place lashonda today Assessment & Plan (12/01/2024 11:52 AM ARMATURE VARNISHER): - admitted from OSH for complains of fevers and anemia - At OSH, blood cultures were positive for E. Faecalis - TTE showed EF 65-70% and a small mobile echogenic mass on mitral valve - Subsequent KALEN demonstrated vegetation on anterior mitral valve leaflet - ID consulted: appreciate recs. Continue Ampicillin (de-sensitized) and Ceftriaxone -KALEN: Left ventricular systolic function appears normal. There is severe mitral regurgitation. There are 2 MR jets-together MR is severe. There is evidence of a vegetation attached to the anterior leaflet of the mitral valve. The vegetation is undergoing abscess formation. No valve perforation. No vegetation on other valves. No aortic root abscess. Normal RV size and function. Assessment & Plan (11/29/2024 1:19 PM ARMATURE VARNISHER): - admitted from OSH for complains of fevers and anemia - At OSH, blood cultures were positive for E. Faecalis - TTE showed EF 65-70% and a small mobile echogenic mass on mitral valve - Subsequent KALEN demonstrated vegetation on anterior mitral valve leaflet - ID consulted: appreciate recs. Continue Ampicillin (de-sensitized) and Ceftriaxone -KALEN: Left ventricular systolic function appears normal. There is severe mitral regurgitation. There are 2 MR jets-together MR is severe. There is evidence of a vegetation attached to the anterior leaflet of the mitral valve. The vegetation is undergoing abscess formation. No valve perforation. No vegetation on other valves. No aortic root abscess. Normal RV size and function. Assessment & Plan (11/27/2024 1:29 PM ARMATURE VARNISHER): - admitted from OSH for complains of fevers and anemia - At OSH, blood cultures were positive for E. Faecalis - TTE showed EF 65-70% and a small mobile echogenic mass on mitral valve - Subsequent KALEN demonstrate vegetation on anterior mitral valve leaflet - ID consulted. Awaiting recs. - continue daptomycin - Head CT and CT chest abdomen pelvis with contrast ordered -KALEN ordered for tomorrow to reassess valve and the need for surgery now or at later date Assessment & Plan (11/26/2024 3:06 PM ARMATURE VARNISHER): - admitted from OSH for complains of fevers and anemia - At OSH, blood cultures were positive for E. Faecalis - TTE showed EF 65-70% and a small mobile echogenic mass on mitral valve - Subsequent KALEN demonstrate vegetation on anterior mitral valve leaflet - ID consulted. Awaiting recs. - continue daptomycin - Head CT and CT chest abdomen pelvis with contrast ordered -KALEN ordered for tomorrow to reassess valve and the need for surgery now or at later date Hyperlipidemia 11/25/2024 Assessment & Plan (12/02/2024 2:31 PM ARMATURE VARNISHER): - history of hyperlipidemia - continue Atorvastatin - low fat, low cholesterol diet Assessment & Plan (12/01/2024 11:52 AM ARMATURE VARNISHER): - history of hyperlipidemia - continue statin - low fat, low cholesterol diet Assessment & Plan (11/30/2024 11:13 AM ARMATURE VARNISHER): - history of hyperlipidemia - continue statin - low fat, low cholesterol diet Assessment & Plan (11/27/2024 1:33 PM ARMATURE VARNISHER): - history of hyperlipidemia - continue statin - low fat, low cholesterol diet Assessment & Plan (11/25/2024 4:23 PM ARMATURE VARNISHER): - history of hyperlipidemia - continue statin - low fat, low cholesterol diet Failed kidney transplant 11/25/2024 Assessment & Plan (12/06/2024 2:39 PM ARMATURE VARNISHER): - Patient underwent kidney transplant last 2018 - Transplant failed on 2020, resumed HD (MWF) - Right upper arm AV fistula - continue Prednisone - continue Tacrolimus 1 mg BID - check Tacrolimus level q am - Kidney transplant team following w/ HD services Monitor daily BMP Assessment & Plan (12/01/2024 11:52 AM ARMATURE VARNISHER): - Patient underwent kidney transplant last 2018 - Transplant failed on 2020 and patient back to HD (MWF) - Right upper arm AV fistula - continue Prednisone - continue Tacrolimus 1 mg BID with daily Tacrolimus level - Kidney transplant following Assessment & Plan (11/29/2024 1:11 PM ARMATURE VARNISHER): - Patient underwent kidney transplant last 2018 - Transplant failed on 2020 and patient back to HD (MWF) - Right upper arm AV fistula - continue Prednisone - continue Tacrolimus 1 mg BID with daily Tacrolimus level - Kidney transplant following Assessment & Plan (11/27/2024 1:33 PM ARMATURE VARNISHER): - Patient underwent kidney transplant last 2018 - Transplant failed on 2020 and patient back to HD (MWF) - Right upper arm AV fistula - continue prednisone - continue tacrolimus 1 mg BID with daily tacrolimus level - Kidney transplant following Assessment & Plan (11/25/2024 4:30 PM ARMATURE VARNISHER): - Patient underwent kidney transplant last 2018 - Transplant failed on 2020 and patient back to HD (MWF) - Right upper arm AV fistula - continue prednisone - continue tacrolimus 1 mg BID with daily tacrolimus level - Kidney transplant following FSGS (focal segmental glomerulosclerosis) 2019 Proteinuria 06/03/2020 Immunosuppression 03/02/2020 E coli infection 02/17/2020 Overview (02/18/2020): 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 01/19 urine clean void: E coli (R - ampicillin, cipro, gent, SXT) 12/10 wound Cx: E. Coli (same susceptibilities) 12/09 BCx E coli 1 of 2 sites (same susceptiblities) 10/02/19 BCx E coli 1 of 2 sites Assessment & Plan (02/18/2020 8:11 AM CDT): Imaging revealing improvement in transplant associated fluid collection. Clinically improving while on IV abx. Imaging favors that fluid collections are hematomas, which may take take a while to resolve. Lastly, there is strong possibility that latest febrile episode was due to COVID-19 rather than E. Coli UTI. All this together, it would be reasonable to de-escalate antibiotic therapy. However, given association newly transplanted kidney, it is reasonable to extend antibiotic treatment, and we should proceed with close monitoring. -- OK to d/c ceftriaxone and weekly labs -- Transition to cefpodoxime 200mg BID (given e. Coli susceptibilities) for 21 days with firm stop if continues to improve -- if tolerating oral abx and continuing to do well, will order for removal of non-tunneled SCL -- discussed at length symptoms that could potentially reflect worsening of infection, including recurrent lower abdominal pain, f/c, n/v, dysuria Diarrhea 01/28/2020 Assessment & Plan (01/29/2020 11:22 AM CDT): Loose-watery stools c diff neg Has loperamide prn Assessment & Plan (01/28/2020 11:42 AM CDT): Loose-watery stools c diff neg Has loperamide prn Severe malnutrition 01/27/2020 COVID-19 virus infection 01/26/2020 Overview (03/04/2020): -Presented with persistent fever despite targeted antibiotics and radiological evidence of lower lobe opacities, but no worsening of chronic respiratory problem or cough. S/p treatment with hydroxychloroquine and azithro. -s/p nasal swabs x2 since discharge, both negative. -From infection prevention standpoint, no obvious need for continued isolation protocol Assessment & Plan (03/05/2020 12:25 PM CDT): -Pt denies any symptoms, continues to feel well. Pt has had 2 negative swabs since her discharge form hospital. From ID standpoint, no need for continued isolation protocol at this time. Assessment & Plan (02/17/2020 2:14 PM CDT): Presented with persistent fever despite targeted antibiotics and radiological evidence of lower lobe opacities, but no worsening of chronic respiratory problem or cough. S/p treatment with hydroxychloroquine and azithro. -- s/p nasal swabs x2 since discharge, both negative. From infection prevention standpoint, no obvious need for continued isolation protocol Assessment & Plan (01/29/2020 11:19 AM CDT): CXR with RML/RLL opacities. Satting well on RA. EKG: QT 366/QTc 447. - Per transplant ID, will initiated HCQ 400mg BID x2 doses, then 200mg BID x4 days - to finished courses today - Will hold off on add'l abx for now. If clinically worsens, will broaden for HCAP coverage - not requiring any supp O2 Assessment & Plan (01/28/2020 11:41 AM CDT): CXR with RML/RLL opacities. Satting well on RA. EKG: QT 366/QTc 447. - Per transplant ID, will initiated HCQ 400mg BID x2 doses, then 200mg BID x4 days - Will hold off on add'l abx for now. If clinically worsens, will broaden for HCAP coverage -not requiring any supp O2 Assessment & Plan (01/26/2020 12:47 PM CDT): CXR with RML/RLL opacities. Satting well on RA. EKG: QT 366/QTc 447. - Per transplant ID, will initiated HCQ 400mg BID x2 doses, then 200mg BID x4 days - Will hold off on add'l abx for now. If clinically worsens, will broaden for HCAP coverage Assessment & Plan (01/26/2020 12:36 PM CDT): CXR with RML/RLL opacities. Satting well on RA. - Per transplant ID, will initiated HCQ 400mg BID x2 doses, then 200mg BID x4 days - Will hold off on add'l abx for now. If clinically worsens, will broaden for HCAP coverage Nausea & vomiting 01/26/2020 Assessment & Plan (01/29/2020 11:22 AM CDT): Unclear precipitant, possibly 2/2 meds vs COVID-19 infection. Currently asymp, exam benign. - PRN anti-emetics - Resolved Assessment & Plan (01/28/2020 11:41 AM CDT): Unclear precipitant, possibly 2/2 meds vs COVID-19 infection. Currently asymp, exam benign. - PRN anti-emetics - CTM Assessment & Plan (01/26/2020 12:47 PM CDT): Unclear precipitant, possibly 2/2 meds vs COVID-19 infection. Currently asymp, exam benign. - PRN anti-emetics - CTM Assessment & Plan (01/26/2020 12:39 PM CDT): Unclear precipitant, possibly 2/2 meds vs COVID-19 infection. Currently asymp, exam benign. - PRN anti-emetics - CTM UTI (urinary tract infection) 01/21/2020 Assessment & Plan (02/17/2020 2:16 PM CDT): No symptoms today, s/p MATERIALS COORDINATOR therapy. Assessment & Plan (01/29/2020 11:22 AM CDT): 01/19 UCx +E.coli. 01/20 BCx NGTD. - Cont CTX 2g q24h, plan for 3 weeks abx per ID - No drainable fluid collection per IR/transplant surgery - Lashonda in place - Home with home IV infusion for IV Abx Assessment & Plan (01/28/2020 11:39 AM CDT): 01/19 UCx +E.coli. 01/20 BCx NGTD. - Cont CTX 2g q24h, plan for 3 weeks abx per ID - No drainable fluid collection per IR/transplant surgery - Lashonda in place, can likely d/c in the next few days on IV abx if clinically stable Assessment & Plan (01/26/2020 12:47 PM CDT): 01/19 UCx +E.coli. 01/20 BCx NGTD. - Cont CTX 2g q24h, plan for 3 weeks abx per ID - No drainable fluid collection per IR/transplant surgery - Lashonda in place, can likely d/c in the next few days on IV abx if clinically stable Assessment & Plan (01/26/2020 12:38 PM CDT): 01/19 UCx +E.coli. 01/20 BCx NGTD. - Cont CTX 2g q24h, plan for 3 weeks abx per ID - No drainable fluid collection per IR/transplant surgery - Lashonda in place, can likely d/c in the next few days on IV abx if clinically stable Acute kidney injury superimposed on chronic kidn ey disease 01/20/2020 Assessment & Plan (01/29/2020 11:21 AM CDT): cont lr 125 ml/hr Scr improved Assessment & Plan (01/28/2020 11:37 AM CDT): cont lr 125 ml/hr Scr improved Assessment & Plan (01/27/2020 11:03 AM CDT): Add lr 125 ml/hr Assessment & Plan (01/26/2020 12:40 PM CDT): Cr 2.4, near baseline (2.3-2.6). 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 Required 1U pRBC so far. - Cont EPO Assessment & Plan (01/26/2020 12:40 PM CDT): Hgb stable. Required 1U pRBC so far. - Cont EPO Iron deficiency anemia 12/17/2019 Encounter for long-term (cur rent) use of high-risk medication 12/17/2019 Encounter for aftercare following kidney transpl ant 12/17/2019 Encounter for long-term (current) use of antibio tics 12/17/2019 Kidney transplant recipient 12/09/2019 Overview (12/10/2019): Added automatically from request for surgery [id number] Assessment & Plan (01/29/2020 11:21 AM CDT): - hold MMF, cont pred - Cont tacro, goal trough 4-5, currently 7.6 and dose had been adjusted down - decrease further to 5mg BID and can follow level outpatient per discussion with renal transplant service - renal tx following Assessment & Plan (01/28/2020 11:37 AM CDT): - hold MMF, cont pred - Cont tacro, goal trough 4-5 (decrease to 7 bid today and recheck in AM) - renal tx following Assessment & Plan (01/27/2020 11:03 AM CDT): - hold MMF, cont pred - Cont tacro, goal trough 4-5 (decrease to 7 bid today and recheck in AM) - renal tx following Assessment & Plan (01/26/2020 12:40 PM CDT): - hold MMF, cont pred - Cont tacro, goal trough 4-5 - renal tx following Wound infection after surgery 12/09/2019 Overview (12/10/2019): Added automatically from request for surgery [id number] Assessment & Plan (04/02/2020 3:01 PM CDT): -Pt completed antibiotic treatment 1 month ago, is doing well, no s/s of recurrent infection noted at this time. - Discussed with patient the rational for treatment, culture results, risk of recurrent infection, signs/symptoms of recurrent infection, and to contact ID clinic with any questions or concerns Assessment & Plan (03/05/2020 12:26 PM CDT): -Pt will complete course of cefpodoxime on 03/07/20. -Repeat imaging showed improvement, as such will d/c antibiotics after this oral course. Plan to follow-up with pt in 4 weeks to see how she is doing off antibiotics, if stable at that time will make PRN follow-up as pt is closely monitored by transplant. -Pt to get labs drawn Monday for transplant, will review those results. -Pt advised to continue self-isolation based on immunocompromised status; if she needs to be out in public, maintain social distancing and wear mask. -Discussed with patient the rational for treatment, culture results, risk of recurrent infection, signs/symptoms of recurrent infection, and to contact ID clinic with any questions or concerns. Kidney transplanted 09/18/2019 Dialysis AV fistula malfunction 02/18/2019 Overview (02/18/2019): Added automatically from request for surgery [id number] ESRD (end stage renal disease) 12/31/2018 Overview (12/31/2018): Added automatically from request for surgery [id number] Assessment & Plan (12/06/2024 2:39 PM ARMATURE VARNISHER): - History of ESRD secondary to SLE - also failed kidney transplant, on the list now for another kidney, continue Tacrolimus - continue HD MWF - Nephrology following - Monitor daily BMP Assessment & Plan (12/01/2024 11:52 AM ARMATURE VARNISHER): - History of ESRD secondary to SLE - continue HD MWF - Nephrology following - Monitor daily BMP Assessment & Plan (11/29/2024 1:12 PM ARMATURE VARNISHER): - History of ESRD secondary to SLE - continue HD MWF - Nephrology following - Monitor daily BMP Assessment & Plan (11/27/2024 1:33 PM ARMATURE VARNISHER): - History of ESRD secondary to SLE - continue HD MWF - Renal following Assessment & Plan (11/25/2024 4:26 PM ARMATURE VARNISHER): - History of ESRD secondary to SLE - continue HD MWF - Renal following Renal osteodystrophy 10/07/2018 Stage 5 chronic kidney disease 09/11/2017 Overview (02/14/2020): Overview: [facility]row Processor = Dr. 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 Hypertension 12/16/2012 Assessment & Plan (12/07/2024 1:04 PM ARMATURE VARNISHER): - VS q 4h - low sodium diet - continue Coreg 3.125 mg po bid-titrate to response - monitor for further antihypertensive need Assessment & Plan (12/01/2024 11:52 AM ARMATURE VARNISHER): - VS q 4h - continue Coreg 25 mg po bid - continue Doxazosin and Nifedipine - low sodium diet - hold Diltiazem for low HR Assessment & Plan (11/29/2024 1:10 PM ARMATURE VARNISHER): - VS q 4h - continue Coreg 25 mg po bid - continue Doxazosin and Nifedipine - low sodium diet - hold Diltiazem for low HR Assessment & Plan (11/27/2024 1:33 PM ARMATURE VARNISHER): - continue carvedilol daily - continue doxazosin and nifedipine - low sodium diet - hold diltiazem for low HR Assessment & Plan (11/25/2024 4:25 PM ARMATURE VARNISHER): - continue carvedilol daily - continue doxazosin and nifedipine - low sodium diet - hold diltiazem for low HR Systemic lupus erythematosus , organ or system involvement unspecified 12/16/2012 Resolved Problems Problem Noted Date Diagnosed Date Resolved Date Sepsis 01/20/2020 01/27/2020 Essential hypertension 12/17/201901/26 Social History Tobacco Use Types Packs/Day Years Used Date Smoking Tobacco: Never Smokeless Tobacco: Never Alcohol Use Standard Drinks/Week Comments No 0 (1 standard drink = 0.6 oz pur e alcohol) OASIS D0700: Social Isolation Answer Da te Recorded Frequency of experiencing loneliness or isolatio n Never 01/16/2025 OASIS A1250: Transportation Answer Date Recorded Lack of Transportation (Medical) No 01/16/2025 Lack of Transportation (Non-Medical) No 01/16/2025 Patient Unable or Declines to Respond No 01/16/2025 OASIS B1300: Health Literacy Answer Everette e Recorded Frequency of needing help to read materials from doctor or pharmacy Never 01/16/2025 Social Connection and Isolat ion Panel [NHANES] Answer Date Recorded In a typical week, how many times do you talk on the phone with family, friends, or neighbors? More than three times a week 10/06/2021 How often do you get togethe r with friends or relatives? More than three times a week 10/06/2021 How often do you attend chur ch or samaritan services? More than 4 times per year 10/06/2021 Do you belong to any clubs o r organizations such as nondenominational groups, unions, fraternal or athletic groups, or [...] place to sleep or slept in a skilled nursing (including now)? No 10/06/2021 Personal Safety Answer Date Recorded Have you ever been in or are you currently in a harmful physical or emotional relationship or is someone making you feel afraid or unsafe? Denies 12/04/2024 Comments No Sex and Gender Information Value Date Recorded Sex Assigned at Not on file Legal Sex Female 2:49 AM ARMATURE VARNISHER Gender Identity Female 02/26/2020 11:09 AM CDT Sexual Orientation Choose not to disclose 2019 11:10 AM CDT Sexual Orientation Straight 02/26/2020 11 :10 AM CDT Last Filed Vital Signs Vital Sign Reading Time Taken Comments Blood Pressure 130/68 02/06/2025 1:14 PM CDT Pulse 69 02/06/2025 1:14 PM CDT Temperature 36.8 C (98.3 F) 01/07/2025 11:45 AM CDT Respiratory Rate 20 01/14/2025 9:05 AM CDT Oxygen Saturation 96% 02/06/2025 1:14 PM CDT Inhaled Oxygen Concentration - - Weight 57.6 kg (127 lb) 02/06/2025 1:14 PM CDT Height 160 cm (5' 3 ) 02/06/2025 1:14 PM CDT Body Mass Index 22.5 02/06/2025 1:14 PM CDT Plan of Treatment Not on file Medical Devices Implanted Type Area Web Merchandiser Device Identifier Shelf Expiration Date Model / Serial / Lot [employer] Stu-Huber ds Physio Ii 24mm Gomes Sew Mitral Ring [id number] - [id number] - [id number] Implanted:Qty: 1 on 12/04/2024 by Vj Oreilly MD at [facility] N/A: Mitral Valve [employer] [id number] 11/03/2026 [id number] / [id number] / [employer] Sternalock 360 Sternal Closure 74-0004 - [id number] Implanted:Qty: 1 on 12/04/2024 by Vj Oreilly MD at [facility] N/A: Chest [employer] 09/25/2028 [id number] / / [employer] Sternalock Rodrigo 2.4mm 12mm Self Drill Lock Sternum Cancellous 73-2412 - [id number] Implanted:Qty: 4 on 12/04/2024 by Bernardo Rubio MD at [facility] N/A: Sternum [employer] 73-2412 / / [employer] Sternalock Rodrigo 2.4mm 14mm Self Drill Lock Sternum Cancellous 73-2414 - [id number] Implanted:Qty: 4 on 12/04/2024 by Bernardo Rubio MD at [facility] N/A: Sternum [employer] 73-2414 / / [employer] Sternalock Rodrigo 2.4mm 16mm Self Drill Lock Sternum Cancellous 73-2416 - [id number] Implanted:Qty: 8 on 12/04/2024 by Bernardo Rubio MD at [facility] N/A: Sternum [employer] 73-2416 / / Explanted Type Area Web Merchandiser Device Identifier Shelf Expiration Date Model / Serial / Lot [employer] [id number] 3.7fr 20cm 70cm Catheter Radiopaque Positioner Guidewire Ureter - [id number] Implanted:Qty: 1 on 09/15/2019 by Obi Rivas MD at [facility] Explanted:Qty: 1 on 10/15/2019 by Malinda Hebert NP Stent Right: Ureter [employer] 05/15/2021 [id number] / / Description:Transplanted kid renya ureter Procedures Procedure Name Priority Date/Time Associated Diagnosis Comments XR CHEST PA LATERAL 2 VIEWS Schedule Routine, Read Routine (OP Routine) 01/16/2025 5:43 PM CDT S/P MVR (mitral valve repair) TRANSTHORACIC ECHO (TTE) COMPLETE W DOPPLER/CF WO CONTRAST Routine 01/16/2025 5:18 PM CDT Bacteremia due to Enterococcus EGFR Routine 01/14/2025 9:30 AM CDT DIFFERENTIAL AUTO Routine 01/14/2025 9:3 0 AM CDT CBC WITH AUTO DIFFERENTIAL Routine 01/14/2025 9:30 AM CDT GLUCOSE, RANDOM (OUTREACH) Routine 01/14/2025 9:30 AM CDT COMPREHENSIVE METABOLIC PANEL WITHOUT GLUCOSE (OUTREACH) Routine 01/14/2025 9:30 AM CDT EGFR Routine 01/07/2025 11:45 AM CDT DIFFERENTIAL AUTO Routine 01/07/2025 11:45 AM CDT CBC WITH AUTO DIFFERENTIAL Routine 01/07/2025 11:45 AM CDT GLUCOSE, RANDOM (OUTREACH) Routine 01/07/2025 11:45 AM CDT COMPREHENSIVE METABOLIC PANEL WITHOUT GLUCOSE (OUTREACH) Routine 01/07/2025 11:45 AM CDT EGFR Routine 12/31/2024 10:35 AM ARMATURE VARNISHER DIFFERENTIAL AUTO Routine 12/31/2024 10:35 AM ARMATURE VARNISHER CBC WITH AUTO DIFFERENTIAL Routine 12/31/2024 10:35 AM ARMATURE VARNISHER GLUCOSE, RANDOM (OUTREACH) Routine 12/31/2024 10:35 AM ARMATURE VARNISHER COMPREHENSIVE METABOLIC PANEL WITHOUT GLUCOSE (OUTREACH) Routine 12/31/2024 10:35 AM ARMATURE VARNISHER EGFR Routine 12/24/2024 1:45 PM ARMATURE VARNISHER DIFFERENTIAL AUTO Routine 12/24/2024 1:4 5 PM ARMATURE VARNISHER CBC WITH AUTO DIFFERENTIAL Routine 12/24/2024 1:45 PM ARMATURE VARNISHER GLUCOSE, RANDOM (OUTREACH) Routine 12/24/2024 1:45 PM ARMATURE VARNISHER COMPREHENSIVE METABOLIC PANEL WITHOUT GLUCOSE (OUTREACH) Routine 12/24/2024 1:45 PM ARMATURE VARNISHER EGFR Routine 12/17/2024 11:00 AM ARMATURE VARNISHER DIFFERENTIAL AUTO Routine 12/17/2024 11:00 AM ARMATURE VARNISHER CBC WITH AUTO DIFFERENTIAL Routine 12/17/2024 11:00 AM ARMATURE VARNISHER GLUCOSE, RANDOM (OUTREACH) Routine 12/17/2024 11:00 AM ARMATURE VARNISHER COMPREHENSIVE METABOLIC PANEL WITHOUT GLUCOSE (OUTREACH) Routine 12/17/2024 11:00 AM ARMATURE VARNISHER HEPATIC FUNCTION PANEL Routine 12/11/2024 9:51 PM ARMATURE VARNISHER DIFFERENTIAL AUTO Routine 12/11/2024 9:5 1 PM ARMATURE VARNISHER EGFR Routine 12/11/2024 9:51 PM ARMATURE VARNISHER PHOSPHORUS Routine 12/11/2024 9:51 PM ARMATURE VARNISHER MAGNESIUM Routine 12/11/2024 9:51 PM ARMATURE VARNISHER CBC WITHOUT DIFFERENTIAL Routine 12/11/2024 9:51 PM ARMATURE VARNISHER BASIC METABOLIC PANEL Routine 12/11/2024 9:51 PM ARMATURE VARNISHER CBC WITHOUT DIFFERENTIAL STAT 12/10/2024 9:24 PM ARMATURE VARNISHER TYPE AND SCREEN Timed 12/10/2024 8:34 PM ARMATURE VARNISHER EGFR Routine 12/10/2024 8:31 PM ARMATURE VARNISHER PHOSPHORUS Routine 12/10/2024 8:31 PM ARMATURE VARNISHER MAGNESIUM Routine 12/10/2024 8:31 PM ARMATURE VARNISHER CBC WITHOUT DIFFERENTIAL Routine 12/10/2024 8:31 PM ARMATURE VARNISHER BASIC METABOLIC PANEL Routine 12/10/2024 8:31 PM ARMATURE VARNISHER INFECTION PREVENTION LEIDY AURIS PCR, SURVEILLANCE Routine 12/10/2024 6:41 PM ARMATURE VARNISHER HEMODIALYSIS Routine 12/10/2024 11:27 AM ARMATURE VARNISHER CBC WITHOUT DIFFERENTIAL Routine 12/09/2024 9:36 PM ARMATURE VARNISHER CREATINE KINASE (CK), TOTAL Routine 12/09/2024 9:28 PM ARMATURE VARNISHER EGFR Routine 12/09/2024 9:28 PM ARMATURE VARNISHER PHOSPHORUS Routine 12/09/2024 9:28 PM ARMATURE VARNISHER MAGNESIUM Routine 12/09/2024 9:28 PM ARMATURE VARNISHER BASIC METABOLIC PANEL Routine 12/09/2024 9:28 PM ARMATURE VARNISHER CENTRAL LINE PLACEMENT > 5 YEARS IP Routine 12/09/2024 3:57 PM ARMATURE VARNISHER EGFR Routine 12/08/2024 9:08 PM ARMATURE VARNISHER PHOSPHORUS Routine 12/08/2024 9:08 PM ARMATURE VARNISHER MAGNESIUM Routine 12/08/2024 9:08 PM ARMATURE VARNISHER CBC WITHOUT DIFFERENTIAL Routine 12/08/2024 9:08 PM ARMATURE VARNISHER BASIC METABOLIC PANEL Routine 12/08/2024 9:08 PM ARMATURE VARNISHER CBC WITHOUT DIFFERENTIAL STAT 12/08/2024 12:51 PM ARMATURE VARNISHER XR CHEST 1 VIEW ED Urgent/IP Urgent 12/08/2024 9:[address] CHEST WO CONTRAST ED Urgent/IP Urgent 12/08/2024 8:57 AM ARMATURE VARNISHER TRANSFUSE RED BLOOD CELLS Timed 12/08/2024 5:45 AM ARMATURE VARNISHER PREPARE RBC Timed 12/08/2024 5:06 AM ARMATURE VARNISHER TYPE AND SCREEN Routine 12/08/2024 3:40 AM ARMATURE VARNISHER CBC WITHOUT DIFFERENTIAL Routine 12/08/2024 3:40 AM ARMATURE VARNISHER HEMODIALYSIS Routine 12/08/2024 12:31 AM ARMATURE VARNISHER EGFR Routine 12/07/2024 8:59 PM ARMATURE VARNISHER PHOSPHORUS Routine 12/07/2024 8:59 PM ARMATURE VARNISHER MAGNESIUM Routine 12/07/2024 8:59 PM ARMATURE VARNISHER CBC WITHOUT DIFFERENTIAL Routine 12/07/2024 8:59 PM ARMATURE VARNISHER BASIC METABOLIC PANEL Routine 12/07/2024 8:59 PM ARMATURE VARNISHER EGFR Routine 12/06/2024 9:25 PM ARMATURE VARNISHER PHOSPHORUS Routine 12/06/2024 9:25 PM ARMATURE VARNISHER MAGNESIUM Routine 12/06/2024 9:25 PM ARMATURE VARNISHER CBC WITHOUT DIFFERENTIAL Routine 12/06/2024 9:25 PM ARMATURE VARNISHER BASIC METABOLIC PANEL Routine 12/06/2024 9:25 PM ARMATURE VARNISHER TRANSTHORACIC ECHO (TTE) COMPLETE W DOPPLER/CF W CONTRAST Routine 12/06/2024 4:48 PM ARMATURE VARNISHER HEMODIALYSIS Routine 12/06/2024 1:43 PM ARMATURE VARNISHER XR CHEST PA LATERAL 2 VIEWS Timed 12/06/2024 12:28 PM ARMATURE VARNISHER POCT GLUCOSE DEVICE Routine 12/06/2024 7 :58 AM ARMATURE VARNISHER POCT GLUCOSE DEVICE Routine 12/05/2024 9 :03 PM ARMATURE VARNISHER HEPATIC FUNCTION PANEL Routine 12/05/2024 7:45 PM ARMATURE VARNISHER CBC WITH AUTO DIFFERENTIAL Routine 12/05/2024 7:45 PM ARMATURE VARNISHER DIFFERENTIAL AUTO Routine 12/05/2024 7:4 5 PM ARMATURE VARNISHER EGFR Routine 12/05/2024 7:45 PM ARMATURE VARNISHER PHOSPHORUS Routine 12/05/2024 7:45 PM ARMATURE VARNISHER MAGNESIUM Routine 12/05/2024 7:45 PM ARMATURE VARNISHER CBC WITHOUT DIFFERENTIAL Routine 12/05/2024 7:45 PM ARMATURE VARNISHER BASIC METABOLIC PANEL Routine 12/05/2024 7:45 PM ARMATURE VARNISHER POCT GLUCOSE DEVICE Routine 12/05/2024 7 :39 PM ARMATURE VARNISHER POCT GLUCOSE DEVICE Routine 12/05/2024 4 :43 PM ARMATURE VARNISHER POTASSIUM, WHOLE BLOOD STAT 12/05/2024 11:49 AM ARMATURE VARNISHER POCT GLUCOSE DEVICE Routine 12/05/2024 11:48 AM ARMATURE VARNISHER CRITICAL CARE Routine 12/05/2024 11:39 AM ARMATURE VARNISHER Subacute bacterial endocarditis [I33.0] POCT GLUCOSE DEVICE Routine 12/05/2024 7 :39 AM ARMATURE VARNISHER POTASSIUM, WHOLE BLOOD STAT 12/05/2024 6:36 AM ARMATURE VARNISHER TACROLIMUS LEVEL, TROUGH STAT 12/05/2024 6:36 AM ARMATURE VARNISHER POCT GLUCOSE DEVICE Routine 12/05/2024 4 :24 AM ARMATURE VARNISHER POCT GLUCOSE DEVICE Routine 12/05/2024 1 :25 AM ARMATURE VARNISHER EGFR Routine 12/05/2024 1:25 AM ARMATURE VARNISHER POTASSIUM, WHOLE BLOOD STAT 12/05/2024 1:25 AM ARMATURE VARNISHER PHOSPHORUS Routine 12/05/2024 1:25 AM ARMATURE VARNISHER MAGNESIUM Routine 12/05/2024 1:25 AM ARMATURE VARNISHER BASIC METABOLIC PANEL Routine 12/05/2024 1:25 AM ARMATURE VARNISHER CBC WITHOUT DIFFERENTIAL Routine 12/05/2024 1:25 AM ARMATURE VARNISHER TYPE AND SCREEN Timed 12/05/2024 1:25 AM ARMATURE VARNISHER POCT GLUCOSE DEVICE Routine 12/04/2024 8 :24 PM ARMATURE VARNISHER XR CHEST 1 VIEW IP Routine 12/04/2024 7:41 PM ARMATURE VARNISHER POCT GLUCOSE DEVICE Routine 12/04/2024 7 :21 PM ARMATURE VARNISHER CRITICAL CARE Routine 12/04/2024 6:30 PM ARMATURE VARNISHER Severe mitral regurgitation POCT GLUCOSE DEVICE Routine 12/04/2024 6 :13 PM ARMATURE VARNISHER POTASSIUM, WHOLE BLOOD STAT 12/04/2024 6:13 PM ARMATURE VARNISHER INFECTION PREVENTION LEIDY AURIS PCR, SURVEILLANCE Routine 12/04/2024 5:39 PM ARMATURE VARNISHER HEMODIALYSIS Routine 12/04/2024 5:08 PM ARMATURE VARNISHER POCT GLUCOSE DEVICE Routine 12/04/2024 3 :47 PM ARMATURE VARNISHER TRIGLYCERIDES STAT 12/04/2024 2:15 PM ARMATURE VARNISHER EGFR STAT 12/04/2024 2:15 PM ARMATURE VARNISHER OXYHEMOGLOBIN, CENTRAL VENOUS STAT 12/04/2024 2:15 PM ARMATURE VARNISHER APTT STAT 12/04/2024 2:15 PM ARMATURE VARNISHER PROTIME-INR STAT 12/04/2024 2:15 PM ARMATURE VARNISHER CBC WITHOUT DIFFERENTIAL STAT 12/04/2024 2:15 PM ARMATURE VARNISHER MAGNESIUM STAT 12/04/2024 2:15 PM ARMATURE VARNISHER BASIC METABOLIC PANEL STAT 12/04/2024 2:15 PM ARMATURE VARNISHER TYPE AND SCREEN Timed 12/04/2024 2:15 PM ARMATURE VARNISHER POC BLOOD GAS AND CHEMISTRIES, ARTERIAL Routine 12/04/2024 2:10 PM ARMATURE VARNISHER CRITICAL CARE Routine 12/04/2024 2:09 PM ARMATURE VARNISHER XR CHEST 1 VIEW ED Urgent/IP Urgent 12/04/2024 2:05 PM ARMATURE VARNISHER POCT PLATELET COUNT AND HEMATOCRIT Routine 12/04/2024 11:53 AM ARMATURE VARNISHER POCT PARTIAL THROMBOPLASTIN TIME (PTT) Routine 12/04/2024 11:52 AM ARMATURE VARNISHER POCT PROTHROMBIN TIME Routine 12/04/2024 11:52 AM ARMATURE VARNISHER POCT HEPARIN/ACT CPB Routine 12/04/2024 11:51 AM ARMATURE VARNISHER POC BLOOD GAS AND CHEMISTRIES, ARTERIAL Routine 12/04/2024 11:48 AM ARMATURE VARNISHER POCT HEPARIN/ACT CPB Routine 12/04/2024 11:29 AM ARMATURE VARNISHER POC BLOOD GAS AND CHEMISTRIES, ARTERIAL Routine 12/04/2024 11:26 AM ARMATURE VARNISHER POCT HEPARIN/ACT CPB Routine 12/04/2024 10:59 AM ARMATURE VARNISHER POC BLOOD GAS AND CHEMISTRIES, ARTERIAL Routine 12/04/2024 10:55 AM ARMATURE VARNISHER POCT HEPARIN/ACT CPB Routine 12/04/2024 10:24 AM ARMATURE VARNISHER POC BLOOD GAS AND CHEMISTRIES, ARTERIAL Routine 12/04/2024 10:20 AM ARMATURE VARNISHER POCT HEPARIN/ACT CPB Routine 12/04/2024 9:49 AM ARMATURE VARNISHER TRANSFUSE RED BLOOD CELLS Timed 12/04/2024 9:41 AM ARMATURE VARNISHER TRANSFUSE RED BLOOD CELLS Timed 12/04/2024 9:41 AM ARMATURE VARNISHER SURGICAL PATHOLOGY Routine 12/04/2024 9: 37 AM ARMATURE VARNISHER Severe mitral regurgitation MS AN PROCEDURE PLACEHOLDER Routine 12/04/2024 9:34 AM ARMATURE VARNISHER ANESTHESIA CENTRAL VENOUS LINE PLACEMENT Routine 12/04/2024 9:18 AM ARMATURE VARNISHER ANESTHESIA CENTRAL VENOUS LINE PLACEMENT Routine 12/04/2024 9:17 AM ARMATURE VARNISHER ANESTHESIA ARTERIAL LINE PLACEMENT Routine 12/04/2024 9:17 AM ARMATURE VARNISHER ANESTHESIA INTUBATION Routine 12/04/2024 9:16 AM ARMATURE VARNISHER POCT HEPARIN DOSE RESPONSE, CPB Routine 12/04/2024 9:13 AM ARMATURE VARNISHER POC BLOOD GAS AND CHEMISTRIES, ARTERIAL Routine 12/04/2024 9:08 AM ARMATURE VARNISHER REPAIR MITRAL VALVE 12/04/2024 8 :04 AM ARMATURE VARNISHER Severe mitral regurgitation Case Notes 11/29@1612- Josse Mireles via phone call reschedule to 12/06/24- [facility] ADD-ON FOR OR Routine 12/04/2024 7:5 9 AM ARMATURE VARNISHER POC BLOOD GAS AND CHEMISTRIES, ARTERIAL Routine 12/04/2024 6:24 AM ARMATURE VARNISHER PREPARE RBC Timed 12/04/2024 5:52 AM ARMATURE VARNISHER EGFR Routine 12/03/2024 10:17 PM ARMATURE VARNISHER PHOSPHORUS Routine 12/03/2024 10:17 PM ARMATURE VARNISHER MAGNESIUM Routine 12/03/2024 10:17 PM ARMATURE VARNISHER BASIC METABOLIC PANEL Routine 12/03/2024 10:17 PM ARMATURE VARNISHER CBC WITHOUT DIFFERENTIAL Routine 12/03/2024 10:17 PM ARMATURE VARNISHER URINALYSIS, MICROSCOPIC ONLY STAT 12/03/2024 9:17 PM ARMATURE VARNISHER URINALYSIS AND REFLEX TO MICROSCOPIC AND CULTURE STAT 12/03/2024 9:17 PM ARMATURE VARNISHER HEMODIALYSIS Routine 12/03/2024 6:55 AM ARMATURE VARNISHER EGFR Routine 12/02/2024 9:40 PM ARMATURE VARNISHER CREATINE KINASE (CK), TOTAL Timed 12/02/2024 9:40 PM ARMATURE VARNISHER TYPE AND SCREEN Timed 12/02/2024 9:40 PM ARMATURE VARNISHER PHOSPHORUS Routine 12/02/2024 9:40 PM ARMATURE VARNISHER MAGNESIUM Routine 12/02/2024 9:40 PM ARMATURE VARNISHER BASIC METABOLIC PANEL Routine 12/02/2024 9:40 PM ARMATURE VARNISHER CBC WITHOUT DIFFERENTIAL Routine 12/02/2024 9:40 PM ARMATURE VARNISHER LEFT HEART CATHETERIZATION (LHC) Routine 12/02/2024 1:58 PM ARMATURE VARNISHER Severe mitral regurgitation BLOOD CULTURE Routine 12/02/2024 8:36 AM ARMATURE VARNISHER EGFR Routine 12/01/2024 10:28 PM ARMATURE VARNISHER PHOSPHORUS Routine 12/01/2024 10:28 PM ARMATURE VARNISHER MAGNESIUM Routine 12/01/2024 10:28 PM ARMATURE VARNISHER BASIC METABOLIC PANEL Routine 12/01/2024 10:28 PM ARMATURE VARNISHER CBC WITHOUT DIFFERENTIAL Routine 12/01/2024 10:28 PM ARMATURE VARNISHER INFECTION PREVENTION LEIDY AURIS PCR, SURVEILLANCE Routine 12/01/2024 10:28 PM ARMATURE VARNISHER HEMODIALYSIS Routine 12/01/2024 12:31 AM ARMATURE VARNISHER EGFR Routine 11/30/2024 10:05 PM ARMATURE VARNISHER PHOSPHORUS Routine 11/30/2024 10:05 PM ARMATURE VARNISHER MAGNESIUM Routine 11/30/2024 10:05 PM ARMATURE VARNISHER BASIC METABOLIC PANEL Routine 11/30/2024 10:05 PM ARMATURE VARNISHER CBC WITHOUT DIFFERENTIAL Routine 11/30/2024 10:05 PM ARMATURE VARNISHER EGFR Routine 11/29/2024 10:10 PM ARMATURE VARNISHER TYPE AND SCREEN Timed 11/29/2024 10:10 PM ARMATURE VARNISHER PHOSPHORUS Routine 11/29/2024 10:10 PM ARMATURE VARNISHER MAGNESIUM Routine 11/29/2024 10:10 PM ARMATURE VARNISHER BASIC METABOLIC PANEL Routine 11/29/2024 10:10 PM ARMATURE VARNISHER CBC WITHOUT DIFFERENTIAL Routine 11/29/2024 10:10 PM ARMATURE VARNISHER EGFR Routine 11/28/2024 10:29 PM ARMATURE VARNISHER PHOSPHORUS Routine 11/28/2024 10:29 PM ARMATURE VARNISHER MAGNESIUM Routine 11/28/2024 10:29 PM ARMATURE VARNISHER BASIC METABOLIC PANEL Routine 11/28/2024 10:29 PM ARMATURE VARNISHER CBC WITHOUT DIFFERENTIAL Routine 11/28/2024 10:29 PM ARMATURE VARNISHER BLOOD CULTURE Routine 11/28/2024 10:29 PM ARMATURE VARNISHER GENERAL Routine 11/28/2024 12:40 PM ARMATURE VARNISHER Allergy to ampicillin HEMODIALYSIS Routine 11/28/2024 11:44 AM ARMATURE VARNISHER ECG 12-LEAD Routine 11/28/2024 8:45 AM ARMATURE VARNISHER EGFR Routine 11/27/2024 9:57 PM ARMATURE VARNISHER PHOSPHORUS Routine 11/27/2024 9:57 PM ARMATURE VARNISHER MAGNESIUM Routine 11/27/2024 9:57 PM ARMATURE VARNISHER BASIC METABOLIC PANEL Routine 11/27/2024 9:57 PM ARMATURE VARNISHER CBC WITHOUT DIFFERENTIAL Routine 11/27/2024 9:57 PM ARMATURE VARNISHER BLOOD CULTURE Routine 11/27/2024 9:57 PM ARMATURE VARNISHER BLOOD CULTURE Routine 11/27/2024 2:02 PM ARMATURE VARNISHER TRANSESOPHAGEAL ECHO ([facility]) W DOPPLER/CF WO CONTRAST Routine 11/27/2024 12:37 PM ARMATURE VARNISHER POC BLOOD GAS AND CHEMISTRIES, ARTERIAL Routine 11/27/2024 11:02 AM ARMATURE VARNISHER MRI BRAIN WO CONTRAST IP Routine 11/27/2024 2:47 AM ARMATURE VARNISHER EGFR Routine 11/26/2024 11:09 PM ARMATURE VARNISHER TYPE AND SCREEN Timed 11/26/2024 11:09 PM ARMATURE VARNISHER PHOSPHORUS Routine 11/26/2024 11:09 PM ARMATURE VARNISHER MAGNESIUM Routine 11/26/2024 11:09 PM ARMATURE VARNISHER BASIC METABOLIC PANEL Routine 11/26/2024 11:09 PM ARMATURE VARNISHER CBC WITHOUT DIFFERENTIAL Routine 11/26/2024 11:09 PM ARMATURE VARNISHER HEMODIALYSIS Routine 11/26/2024 11:23 AM ARMATURE VARNISHER POTASSIUM LEVEL Timed 11/26/2024 8:26 AM ARMATURE VARNISHER POTASSIUM LEVEL Timed 11/26/2024 5:10 AM ARMATURE VARNISHER TACROLIMUS LEVEL, TROUGH Routine 11/26/2024 5:10 AM ARMATURE VARNISHER CTA CHEST ABDOMEN PELVIS IP Routine 11/26/2024 1:[address] HEAD WO CONTRAST IP Routine 11/26/2024 1 :56 AM ARMATURE VARNISHER EGFR Routine 11/25/2024 11:33 PM ARMATURE VARNISHER CREATINE KINASE (CK), TOTAL Timed 11/25/2024 11:33 PM ARMATURE VARNISHER PHOSPHORUS Routine 11/25/2024 11:33 PM ARMATURE VARNISHER MAGNESIUM Routine 11/25/2024 11:33 PM ARMATURE VARNISHER BASIC METABOLIC PANEL Routine 11/25/2024 11:33 PM ARMATURE VARNISHER CBC WITHOUT DIFFERENTIAL Routine 11/25/2024 11:33 PM ARMATURE VARNISHER US TRANSFER OF OUTSIDE FILMS Routine 11/25/2024 3:55 PM ARMATURE VARNISHER HEPATITIS B SURFACE ANTIGEN STAT 11/25/2024 3:24 PM ARMATURE VARNISHER TACROLIMUS LEVEL, TROUGH STAT 11/25/2024 9:57 AM ARMATURE VARNISHER INFECTION PREVENTION LEIDY AURIS PCR, SURVEILLANCE Routine 11/25/2024 9:57 AM ARMATURE VARNISHER HEMODIALYSIS Routine 11/25/2024 8:42 AM ARMATURE VARNISHER CRITICAL RESULT CALLBACK CHEMISTRY STAT 11/25/2024 7:47 AM ARMATURE VARNISHER POTASSIUM, WHOLE BLOOD STAT 11/25/2024 7:47 AM ARMATURE VARNISHER POCT GLUCOSE DEVICE Routine 11/25/2024 7 :37 AM ARMATURE VARNISHER EGFR Routine 11/25/2024 5:43 AM ARMATURE VARNISHER CRITICAL RESULT CALLBACK CHEMISTRY Routine 11/25/2024 5:43 AM ARMATURE VARNISHER APTT Routine 11/25/2024 5:43 AM ARMATURE VARNISHER PROTIME-INR Routine 11/25/2024 5:43 AM ARMATURE VARNISHER COMPREHENSIVE METABOLIC PANEL Routine 11/25/2024 5:43 AM ARMATURE VARNISHER TYPE AND SCREEN Timed 11/25/2024 5:43 AM ARMATURE VARNISHER CBC WITHOUT DIFFERENTIAL Routine 11/25/2024 5:43 AM ARMATURE VARNISHER BLOOD CULTURE Routine 11/25/2024 5:43 AM ARMATURE VARNISHER BLOOD CULTURE Routine 11/25/2024 5:43 AM ARMATURE VARNISHER XR CHEST 1 VIEW IP Routine 11/25/2024 4:44 AM ARMATURE VARNISHER HEPATITIS C ANTIBODY Routine 11/28/2023 1:19 PM ARMATURE VARNISHER Stage 5 chronic kidney disease on chronic dialysis (HCC) DIAGNOSTIC MAMMOGRAM Schedule Routine, Read Routine (OP Routine) 07/06/2021 1:40 PM CDT from Last 3 Months or Most Recently Relevant to Health Maintenance Results * XR Chest Pa Lateral 2 Views (01/16/2025 5:43 PM CDT) Anatomical Region Laterality Modality Body, Chest N/A Computed Radiogr aphy 01/17/2025 8:32 AM CDT Impressions 01/17/2025 8:32 AM CDT Comparison 12/08/2024. Sternal plates aligned and intact. Changes of mitral valve repair again seen. Right internal jugular central venous catheter has been removed. Interval reexpansion of both lower lobes and resolution of the bilateral pleural effusion seen. No pulmonary edema seen. No pneumothorax seen. Cardiomediastinal silhouette stable. Electronically signed by: Abdulkadir Matamoros M.D. Narrative 01/17/2025 8:32 AM CDT EXAMINATION: 2 view chest radiograph Procedure Note Abdulkadir Matamoros MD - 01/17/2025 EXAMINATION: 2 view chest radiograph IMPRESSION: Comparison 12/08/2024. Sternal plates aligned and intact. Changes of mitral valve repair again seen. Right internal jugular central venous catheter has been removed. Interval reexpansion of both lower lobes and resolution of the bilateral pleural effusion seen. No pulmonary edema seen. No pneumothorax seen. Cardiomediastinal silhouette stable. Electronically signed by: Abdulkadir Matamoros M.D. Jennifer Montanez NP IMG XR PROCEDURES Final Result * TRANSTHORACIC ECHO (TTE) COMPLETE W DOPPLER/CF WO CONTRAST (01/16/2025 5:18 PM CDT) Anatomical Region Laterality Modality Ultrasound 01/16/2025 4:38 PM CDT Narrative 01/17/2025 7:01 AM CDT [facility] [place] [address] Transthoracic Echocardiographic Report Patient Name: QUIN MILLER J : 1970 (54y 5m) Gender: F Study Date: 01/16/2025 04:38:36 PM Ht(Inch): 63 Wt(Lb): 128.97 BSA: 1.61 Evs Manager: Azucena Han RDCS Location: [facility] Order Provider: JENNIFER MONTANEZ Heart Rate: 72 BMI: 22.84 BP: 177 / 66 Ref Provider: JENNIFER MONTANEZ PROCEDURES: Echocardiographic Report: Transthoracic complete echo with strain imaging, 2D, spectral and tissue Doppler, color flow Doppler, M-mode. INDICATIONS: MV repair, R78.81 Bacteremia, and B95.2 Enterococcus as the cause of diseases classified elsewhere. CONCLUSIONS: 1. s/p mitral valbve repair with anuloplasty; Concentric LV hypertrophy. Normal left ventricular systolic function. The Ejection Fraction (Arroyo's) is measured at 57 %. The average global longitudinal strain is abnormal. 2. Normal right ventricular size. Mild right ventricular hypokinesis. ATTESTATION: I have personally reviewed and interpreted this study without fellow or resident. - DISCLAIMER: The study images and the final report will be retained in the patient chart by the Echo Laboratory for the legally required time period. This chart constitutes the legal record of any testing performed. FINDINGS: Left Ventricle: Mildly dilated left ventricle based on volume index. Concentric LV hypertrophy. Normal left ventricular systolic function. The Ejection Fraction (Arroyo's) is measured at 57 %. The average global longitudinal strain is abnormal. The LV global strain is: -15.8 %. Right Ventricle: Normal right ventricular size. Mild right ventricular hypokinesis. Left Atrium: Mildly dilated left atrium. Right Atrium: The right atrium is normal in size. Mitral Valve: Normal mitral valve structure. Mild mitral valve regurgitation. No stenosis present. The mitral valve area by pressure half-time is 2.1 cm2. The mean transmitral gradient is: 9 mmHg. s/p mitral valve annuloplasty repair;. Aortic Valve: Normal trileaflet aortic valve. No aortic regurgitation. No aortic valve stenosis. Tricuspid Valve: Normal tricuspid valve structure. Mild tricuspid regurgitation. PA systolic pressure 25 mm HG;. Pulmonic Valve: Normal pulmonic valve structure. Mild pulmonic regurgitation. Pericardium: Normal pericardium without pericardial effusion. Aorta: Normal aortic root size. Normal aortic root size when indexed. IVC: Normal estimated pulmonary artery systolic pressure. Rhythm: Normal Sinus rhythm was seen during the study. MEASUREMENTS: 2D/MM Value Range Doppler Value Range LVIDd 2D 4.73 cm [ 3.80 - 5.20 ] AV Peak Cezar 1.7 m/s [ 1.0 - 1.7 ] LVIDs 2D 3.29 cm [ 2.20 - 3.50 ] AV Peak PG 11.56 mmHg IVSd 2D 1.07 cm [ 0.60 - 0.90 ] AV Mean PG 7 mmHg LVPWd 2D 1.19 cm [ 0.60 - 0.90 ] AV VTI 36.5 cm LV Thickness Ratio 0.9 LVOT Peak Cezar 1.5 m/s [ 0.7 - 1.1 ] LV FS 2D 30.48 % [ 27.00 - 45.00 ] LVOT Peak PG 9.00 mmHg LV Mass 2D 200.10 g LVOT Mean PG 4 mmHg LV Mass Index 2D 124.29 g/m2 LVOT VTI 26.5 cm RWT 0.50 LVOT Diam 1.88 cm EDV Mod BP 106.09 ml [ 46.00 - 106.00 ] BIENVENIDO VTI 2.01 cm2 LV EDV Index 65.89 ml/m2 LVOT/AV VTI 0.73 - Dimensionless index (DVI) ESV Mod BP 45.63 ml [ 14.00 - 42.00 ] MV Peak Cezar 2.0 m/s EF Mod BP 57 % [ 54 - 74 ] MV Peak PG 16.00 mmHg LV GLS -15.8 % [ -25.0 - -18.0 ] MV Mean PG 9 mmHg LA Length 4C 5.33 cm MV VTI 59.2 cm LA Length 2C 5.03 cm MV PHT 103.46 msec [ 20.00 - 100.00 ] LA Volume BP 60.78 ml MVA PHT 2.13 cm2 LA Volume Index 37.75 ml/m2 [ 16.00 - 34.00 ] Med E` Cezar 4.2 cm/sec [ 8.0 - 25.0 ] RV Base Dimen 2D 3.2 cm [ 2.5 - 4.2 ] Lat E` Cezar 5.9 cm/sec [ 10.0 - 25.0 ] TAPSE 1.41 cm [ 1.71 - 5.00 ] RV S` 7.34 cm/sec RA Volume 20.53 ml TR Peak Cezar 2.7 m/s [ 1.0 - 2.8 ] RA Volume Index 12.75 ml/m2 TR Peak PG 29.2 mmHg IVC Diam 1.57 cm PV Peak Cezar 0.9 m/s [ 0.4 - 0.8 ] AoR Diam 2D 2.71 cm [ 2.70 - 3.70 ] PV Peak PG 3.24 mmHg Ao Root Index 1.68 cm/m2 [ 1.00 - 2.00 ] PI ED Cezar 77.48 m/sec Asc Ao Diam 2D 3.16 cm Asc Ao Index 1.96 cm/m2 Electronically Signed By: Christo Ruiz MD 01/17/2025 7:00:55 AM CDT Procedure Note Christo Ruiz MD - 01/17/2025 [facility] [place] [address] Transthoracic Echocardiographic Report Patient Name: QUIN MILLER J : 1970 (54y 5m) Gender: F Study Date: 01/16/2025 04:38:36 PM Ht(Inch): 63 Wt(Lb): 128.97 BSA: 1.61 Evs Manager: Azucena Han RDCS Location: [facility] Order Provider:JENNIFER MONTANEZ Heart Rate: 72 BMI: 22.84 BP: 177 / 66 Ref Provider: HAYDENNIKOLAYJENNIFER PROCEDURES: Echocardiographic Report: Transthoracic complete echo with strain imaging,2D, spectral and tissue Doppler, color flow Doppler, M-mode. INDICATIONS: MV repair, R78.81 Bacteremia, and B95.2 Enterococcus as the cause ofdiseases classified elsewhere. CONCLUSIONS: 1. s/p mitral valbve repair with anuloplasty; Concentric LV hypertrophy.Normal left ventricular systolic function. The Ejection Fraction (Arroyo's) ismeasured at 57 %. The average global longitudinal strain is abnormal. 2. Normal right ventricular size. Mild right ventricular hypokinesis. ATTESTATION: I have personally reviewed and interpreted this study without fellow orresident. - DISCLAIMER: The study images and the final report will be retained in the patientchart by the Echo Laboratory for the legally required time period. This chart constitutesthe legal record of any testing performed. FINDINGS: Left Ventricle: Mildly dilated left ventricle based on volume index.Concentric LV hypertrophy. Normal left ventricular systolic function. The EjectionFraction (Arroyo's) is measured at 57 %. The average global longitudinal strain is abnormal.The LV global strain is: -15.8 %. Right Ventricle: Normal right ventricular size. Mild right ventricularhypokinesis. Left Atrium: Mildly dilated left atrium. Right Atrium: The right atrium is normal in size. Mitral Valve: Normal mitral valve structure. Mild mitral valveregurgitation. No stenosis present. The mitral valve area by pressure half-time is 2.1 cm2. The meantransmitral gradient is: 9 mmHg. s/p mitral valve annuloplasty repair;. Aortic Valve: Normal trileaflet aortic valve. No aortic regurgitation. Noaortic valve stenosis. Tricuspid Valve: Normal tricuspid valve structure. Mild tricuspidregurgitation. PA systolic pressure 25 mm HG;. Pulmonic Valve: Normal pulmonic valve structure. Mild pulmonicregurgitation. Pericardium: Normal pericardium without pericardial effusion. Aorta: Normal aortic root size. Normal aortic root size when indexed. IVC: Normal estimated pulmonary artery systolic pressure. Rhythm: Normal Sinus rhythm was seen during the study. MEASUREMENTS: 2D/MM Value Range DopplerValue Range LVIDd 2D 4.73 cm [ 3.80 - 5.20 ] AV Peak Vel1.7 m/s [ 1.0 - 1.7 ] LVIDs 2D 3.29 cm [ 2.20 - 3.50 ] AV Peak PG11.56 mmHg IVSd 2D 1.07 cm [ 0.60 - 0.90 ] AV Mean PG7 mmHg LVPWd 2D 1.19 cm [ 0.60 - 0.90 ] AV VTI36.5 cm LV Thickness Ratio 0.9 LVOT Peak Vel1.5 m/s [ 0.7 - 1.1 ] LV FS 2D 30.48 % [ 27.00 - 45.00 ] LVOT Peak PG9.00 mmHg LV Mass 2D 200.10 g LVOT Mean PG4 mmHg LV Mass Index 2D 124.29 g/m2 LVOT VTI26.5 cm RWT 0.50 LVOT Diam1.88 cm EDV Mod BP 106.09 ml [ 46.00 - 106.00 ] BIENVENIDO VTI2.01 cm2 LV EDV Index 65.89 ml/m2 LVOT/AV VTI0.73 - Dimensionless index (DVI) ESV Mod BP 45.63 ml [ 14.00 - 42.00 ] MV Peak Vel2.0 m/s EF Mod BP 57 % [ 54 - 74 ] MV Peak PG16.00 mmHg LV GLS -15.8 % [ -25.0 - -18.0 ] MV Mean PG9 mmHg LA Length 4C 5.33 cm MV VTI59.2 cm LA Length 2C 5.03 cm MV XRA241.46 msec [ 20.00 - 100.00 ] LA Volume BP 60.78 ml MVA PHT2.13 cm2 LA Volume Index 37.75 ml/m2 [ 16.00 - 34.00 ] Med E` Vel4.2 cm/sec [ 8.0 - 25.0 ] RV Base Dimen 2D 3.2 cm [ 2.5 - 4.2 ] Lat E` Vel5.9 cm/sec [ 10.0 - 25.0 ] TAPSE 1.41 cm [ 1.71 - 5.00 ] RV S`7.34 cm/sec RA Volume 20.53 ml TR Peak Vel2.7 m/s [ 1.0 - 2.8 ] RA Volume Index 12.75 ml/m2 TR Peak PG29.2 mmHg IVC Diam 1.57 cm PV Peak Vel0.9 m/s [ 0.4 - 0.8 ] AoR Diam 2D 2.71 cm [ 2.70 - 3.70 ] PV Peak PG3.24 mmHg Ao Root Index 1.68 cm/m2 [ 1.00 - 2.00 ] PI ED Vel77.48 m/sec Asc Ao Diam 2D3.16 cm Asc Ao Index1.96 cm/m2 Electronically Signed By: Christo Ruiz MD 01/17/2025 7:00:55 AM CDT Jennifer Montanez NP CV ECHO PROCEDURES Final Result * Glucose, random (Outreach) (01/14/2025 9:30 AM CDT) [facility] Glucose 157 70 - 199 mg/dL Comment: Interpretive Data Fasting glucose >/= 126 mg/dl is diagnostic for diabetes. Fasting is defined as no caloric intake for at least 8 hours. Fasting glucose between 100 mg/dl to 125 mg/dl is diagnostic of prediabetes. In a patient with classic symptoms of hyperglycemia or hyperglycemic crisis, a random glucose >/= 200 mg/dl is diagnostic for diabetes. In the absence of unequivocal hyperglycemia, results should be confirmed by repeat testing. The classification and Diagnosis of Diabetes Diabetes Care 2021; 46: S19-S40. Current interpretive data was last revised 2022. Blood 01/14/2025 9:30 AM CDT 01/14/2025 2:04 PM CDT Irma Arias MD LAB BLOOD ORDERABLES Final Resu lt Performing Organization Address City/[facility] Co de Phone Number [facility] [address] Department of [employer] [place], [place] [id number] * (ABNORMAL) eGFR (01/14/2025 9:30 AM CDT) Pathologist [facility] eGFR 14(L) >=60 mL/min/1. 73 m2 Comment: Interpretive Data Reference Interval Normal >/= 90 mL/min/1.73m2 Mildly decreased* 60 - 89 mL/min/1.73m2 Mildly to moderately decreased 45 - 59 mL/min/1.73m2 Moderately to severely decreased 30 - 44 mL/min/1.73m2 Severely decreased 15 - 29 mL/min/1.73m2 Kidney Failure < 15 mL/min/1.73m2 *Relative to young adult level Estimated glomerular filtration rate is determined by the 2020 CKD-EPI equation recommended by the National Kidney Foundation (A Unifying Approach to GFR Estimation: Recommendations of the NKF-ASK Task Force on Reassessing the Inclusion of Race in Diagnosing Kidney Disease, JASN 2020). The CKD-EPI equation should not be used for patients with unstable renal function and has not been validated in children and those over 70. Current interpretive data was last reviewed 2021. Blood 01/14/2025 9:30 AM CDT 01/14/2025 2:11 PM CDT Irma Arias MD LAB BLOOD ORDERABLES Final Resu lt Performing Organization Address City/[facility]/ZIP Co de Phone Number [facility] [address] Department of [employer] [place], [place] [id number] * Differential, auto (01/14/2025 9:30 AM CDT) [facility] Neutrophil abs 2.4 1.5 - 6.5 K/cumm Imm gran abs 0.0 0.0 - 0.1 K/cumm [facility] Lymphocyte abs 0.9 0.8 - 3.3 K/cumm [facility] Monocyte abs 0.5 0.2 - 0.8 K/cumm [facility] Eosinophil abs 0.0 0.0 - 0.5 K/cumm [facility] Basophil abs 0.0 0.0 - 0.1 K/cumm [facility] Neutrophil pct 61.7 % [facility] Comment: Interpretive Data Percent cell count reference ranges are not reported, since discordance with absolute values may lead to misinterpretation of CBC data. Current Interpretive Data was last revised on 2018. Imm gran pct 0.5 % [facility] Comment: Interpretive Data Percent cell count reference ranges are not reported, since discordance with absolute values may lead to misinterpretation of CBC data. Current Interpretive Data was last revised on 2018. Lymphocyte pct 24.0 % [facility] Comment: Interpretive Data Percent cell count reference ranges are not reported, since discordance with absolute values may lead to misinterpretation of CBC data. Current Interpretive Data was last revised on 2018. Monocyte pct 12.2 % [facility] Comment: Interpretive Data Percent cell count reference ranges are not reported, since discordance with absolute values may lead to misinterpretation of CBC data. Current Interpretive Data was last revised on 2018. Eosinophil pct 0.8 % [facility] Comment: Interpretive Data Percent cell count reference ranges are not reported, since discordance with absolute values may lead to misinterpretation of CBC data. Current Interpretive Data was last revised on 2018. Basophil pct 0.8 % [facility] Comment: Interpretive Data Percent cell count reference ranges are not reported, since discordance with absolute values may lead to misinterpretation of CBC data. Current Interpretive Data was last revised on 2018. Blood 01/14/2025 9:30 AM CDT 01/14/2025 2:04 PM CDT us Irma Arias MD LAB BLOOD ORDERABLES Final Resu lt [facility] [address] Department [place] [employer] [place] [address] * (ABNORMAL) Comprehensive metabolic panel, without glucose (Outreach) (01/14/2025 9:30 AM CDT) [facility] Sodium 142 135 - 145 mmol/L Potassium, pl 4.5 3.3 - 4.9 mmol/L [facility] Chloride 102 97 - 110 mmol/L [facility] CO2 26 22 - 32 mmol/L [facility] Anion gap 14 2 - 15 mmol/L [facility] BUN 25 6 - 25 mg/dL [facility] Creatinine 3.63(H) 0.60 - 1.10 mg/dL [facility] Calcium 8.3(L) 8.5 - 10.3 mg/dL [facility] Protein, pl 7.3 6.5 - 8.5 g/dL [facility] Albumin 2.9(L) 3.5 - 5.0 g/dL [facility] Bilirubin, total 0.5 0.1 - 1.2 mg/dL [facility] Alk phos 157(H) 40 - 130 Units/L [facility] AST 33 10 - 45 Units/L [facility] Comment:Slightly Hemolyzed S pecimen ALT 18 7 - 45 Units/L [facility] Blood 01/14/2025 9:30 AM CDT 01/14/2025 2:04 PM CDT us Irma Arias MD LAB BLOOD ORDERABLES Final Resu lt [facility] [address] Department [place] [address] * (ABNORMAL) CBC with auto differential (01/14/2025 9:30 AM CDT) [facility] WBC 3.9 3.8 - 9.9 K/cumm Hgb 10.6(L) 11.9 - 15.5 g/dL [facility] Hct 34.4(L) 35.6 - 45.5 % [facility] Plt 160 150 - 400 K/cumm [facility] MPV 11.6 9.1 - 12.3 fL [facility] RBC 3.47(L) 3.90 - 5.20 M/cumm [facility] MCV 99.1(H) 81.3 - 96.4 fL [facility] MCH 30.5 27.1 - 33.3 pg [facility] MCHC 30.8(L) 32.3 - 35.7 g/dL [facility] RDW CV 18.0(H) 11.1 - 14.9 % [facility] RDW SD 63.5(H) 35.7 - 48.1 fL [facility] NRBC abs 0.00 0.00 - 0.01 K/cumm [facility] Blood 01/14/2025 9:30 AM CDT 01/14/2025 2:04 PM CDT us Irma Arias MD LAB BLOOD ORDERABLES Final Resu lt Performing Organization Address [facility] Co de Phone Number [facility] [address] [place] [email or web address] [address] * Glucose, random (Outreach) (01/07/2025 11:45 AM CDT) [facility] Glucose 135 70 - 199 mg/dL Comment: Interpretive Data Fasting glucose >/= 126 mg/dl is diagnostic for diabetes. Fasting is defined as no caloric intake for at least 8 hours. Fasting glucose between 100 mg/dl to 125 mg/dl is diagnostic of prediabetes. In a patient with classic symptoms of hyperglycemia or hyperglycemic crisis, a random glucose >/= 200 mg/dl is diagnostic for diabetes. In the absence of unequivocal hyperglycemia, results should be confirmed by repeat testing. The classification and Diagnosis of Diabetes Diabetes Care 202; 46: S19-S40. Current interpretive data was last revised 2022. Blood 01/07/2025 11:4 5 AM CDT 01/07/2025 9:15 PM CDT us Vinny Lugo DO LAB BLOOD ORDERABLES Final Resul t Performing Organization Address City/[facility]/ZIP Co de Phone Number [facility] [address] Department [place] [address] * (ABNORMAL) eGFR (01/07/2025 11:45 AM CDT) eGFR 14(L) >=60 mL/min/1. 73 m2 Comment: Interpretive Data Reference Interval Normal >/= 90 mL/min/1.73m2 Mildly decreased* 60 - 89 mL/min/1.73m2 Mildly to moderately decreased 45 - 59 mL/min/1.73m2 Moderately to severely decreased 30 - 44 mL/min/1.73m2 Severely decreased 15 - 29 mL/min/1.73m2 Kidney Failure < 15 mL/min/1.73m2 *Relative to young adult level Estimated glomerular filtration rate is determined by the 2020 CKD-EPI equation recommended by the National Kidney Foundation (A Unifying Approach to GFR Estimation: Recommendations of the NKF-ASK Task Force on Reassessing the Inclusion of Race in Diagnosing Kidney Disease, JASN 2020). The CKD-EPI equation should not be used for patients with unstable renal function and has not been validated in children and those over 70. Current interpretive data was last reviewed 2021. Blood 01/07/2025 11:4 5 AM CDT 01/08/2025 10:34 AM CDT Vinny Lugo DO LAB BLOOD ORDERABLES Final Resul t [facility] [address] Department [place] [address] * (ABNORMAL) Differential, auto (01/07/2025 11:45 AM CDT) Pathologist [facility] Neutrophil abs 3.6 1.5 - 6.5 K/cumm Imm gran abs 0.0 0.0 - 0.1 K/cumm [facility] Lymphocyte abs 0.6(L) 0.8 - 3.3 K/cumm [facility] Monocyte abs 0.2 0.2 - 0.8 K/cumm [facility] Eosinophil abs 0.0 0.0 - 0.5 K/cumm [facility] Basophil abs 0.0 0.0 - 0.1 K/cumm [facility] Neutrophil pct 79.7 % [facility] Comment: Interpretive Data Percent cell count reference ranges are not reported, since discordance with absolute values may lead to misinterpretation of CBC data. Current Interpretive Data was last revised on 2018. Imm gran pct 0.2 % [facility] Comment: Interpretive Data Percent cell count reference ranges are not reported, since discordance with absolute values may lead to misinterpretation of CBC data. Current Interpretive Data was last revised on 2018. Lymphocyte pct 14.1 % [facility] Comment: Interpretive Data Percent cell count reference ranges are not reported, since discordance with absolute values may lead to misinterpretation of CBC data. Current Interpretive Data was last revised on 2018. Monocyte pct 5.4 % [facility] Comment: Interpretive Data Percent cell count reference ranges are not reported, since discordance with absolute values may lead to misinterpretation of CBC data. Current Interpretive Data was last revised on 2018. Eosinophil pct 0.4 % [facility] Comment: Interpretive Data Percent cell count reference ranges are not reported, since discordance with absolute values may lead to misinterpretation of CBC data. Current Interpretive Data was last revised on 2018. Basophil pct 0.2 % [facility] Comment: Interpretive Data Percent cell count reference ranges are not reported, since discordance with absolute values may lead to misinterpretation of CBC data. Current Interpretive Data was last revised on 2018. Blood 01/07/2025 11:4 5 AM CDT 01/07/2025 9:16 PM CDT us Vinny Lugo DO LAB BLOOD ORDERABLES Final Resul t [facility] [address] Department [place] [address] * (ABNORMAL) Comprehensive metabolic panel, without glucose (Outreach) (01/07/2025 11:45 AM CDT) Sodium 140 135 - 145 mmol/L Potassium, pl 4.5 3.3 - 4.9 mmol/L [facility] Chloride 99 97 - 110 mmol/L [facility] CO2 27 22 - 32 mmol/L [facility] Anion gap 14 2 - 15 mmol/L [facility] BUN 21 6 - 25 mg/dL [facility] Creatinine 3.80(H) 0.60 - 1.10 mg/dL [facility] Calcium 8.4(L) 8.5 - 10.3 mg/dL [facility] Protein, pl 7.7 6.5 - 8.5 g/dL [facility] Albumin 2.8(L) 3.5 - 5.0 g/dL [facility] Bilirubin, total <0.2 0.1 - 1.2 mg/dL [facility] Alk phos 163(H) 40 - 130 Units/L [facility] AST 34 10 - 45 Units/L [facility] ALT 15 7 - 45 Units/L [facility] Blood 01/07/2025 11:4 5 AM CDT 01/07/2025 9:15 PM CDT Vinny Lugo DO LAB BLOOD ORDERABLES Final Resul t [facility] [address] Department [place] [address] * (ABNORMAL) CBC with auto differential (01/07/2025 11:45 AM CDT) WBC 4.5 3.8 - 9.9 K/cumm Hgb 10.1(L) 11.9 - 15.5 g/dL [facility] Hct 33.6(L) 35.6 - 45.5 % [facility] Plt 146(L) 150 - 400 K/cumm [facility] MPV 11.9 9.1 - 12.3 fL [facility] RBC 3.40(L) 3.90 - 5.20 M/cumm [facility] MCV 98.8(H) 81.3 - 96.4 fL [facility] MCH 29.7 27.1 - 33.3 pg [facility] MCHC 30.1(L) 32.3 - 35.7 g/dL [facility] RDW CV 16.9(H) 11.1 - 14.9 % [facility] RDW SD 60.9(H) 35.7 - 48.1 fL [facility] NRBC abs 0.00 0.00 - 0.01 K/cumm [facility] Blood 01/07/2025 11:4 5 AM CDT 01/07/2025 9:16 PM CDT Vinny Onzo LAB BLOOD ORDERABLES Final Resul t Performing Organization Address [facility] de Phone Number [facility] [address] Department [place] [employer] [place] [address] * Glucose, random (Outreach) (12/31/2024 10:35 AM ARMATURE VARNISHER) Glucose 96 70 - 199 mg/dL Comment: Interpretive Data Fasting glucose >/= 126 mg/dl is diagnostic for diabetes. Fasting is defined as no caloric intake for at least 8 hours. Fasting glucose between 100 mg/dl to 125 mg/dl is diagnostic of prediabetes. In a patient with classic symptoms of hyperglycemia or hyperglycemic crisis, a random glucose >/= 200 mg/dl is diagnostic for diabetes. In the absence of unequivocal hyperglycemia, results should be confirmed by repeat testing. The classification and Diagnosis of Diabetes Diabetes Care 2021; 46: S19-S40. Current interpretive data was last revised 2022. Blood 12/31/2024 10:3 5 AM AR[facility]URE VARNISHER 12/31/2024 4:21 PM ARMATURE VARNISHER Vinny Lugo DO LAB BLOOD ORDERABLES Final Resul t Performing Organization Address [facility] Co de Phone Number [facility] [address] Department [place] [employer] [place] [address] * (ABNORMAL) eGFR (12/31/2024 10:35 AM ARMATURE VARNISHER) eGFR 14(L) >=60 mL/min/1. 73 m2 Comment: Interpretive Data Reference Interval Normal >/= 90 mL/min/1.73m2 Mildly decreased* 60 - 89 mL/min/1.73m2 Mildly to moderately decreased 45 - 59 mL/min/1.73m2 Moderately to severely decreased 30 - 44 mL/min/1.73m2 Severely decreased 15 - 29 mL/min/1.73m2 Kidney Failure < 15 mL/min/1.73m2 *Relative to young adult level Estimated glomerular filtration rate is determined by the 2020 CKD-EPI equation recommended by the National Kidney Foundation (A Unifying Approach to GFR Estimation: Recommendations of the NKF-ASK Task Force on Reassessing the Inclusion of Race in Diagnosing Kidney Disease, JASN 2020). The CKD-EPI equation should not be used for patients with unstable renal function and has not been validated in children and those over 70. Current interpretive data was last reviewed 2021. Blood 12/31/2024 10:3 5 AM ARMATURE VARNISHER 12/31/2024 8:23 PM ARMATURE VARNISHER us Vinny Lugo DO LAB BLOOD ORDERABLES Final Resul t [facility] [address] Department [place] [address] * Differential, auto (12/31/2024 10:35 AM ARMATURE VARNISHER) Neutrophil abs 2.5 1.5 - 6.5 K/cumm Imm gran abs 0.0 0.0 - 0.1 K/cumm [facility] Lymphocyte abs 0.8 0.8 - 3.3 K/cumm [facility] Monocyte abs 0.4 0.2 - 0.8 K/cumm [facility] Eosinophil abs 0.1 0.0 - 0.5 K/cumm [facility] Basophil abs 0.0 0.0 - 0.1 K/cumm [facility] Neutrophil pct 66.3 % [facility] Comment: Interpretive Data Percent cell count reference ranges are not reported, since discordance with absolute values may lead to misinterpretation of CBC data. Current Interpretive Data was last revised on 2018. Imm gran pct 0.3 % [facility] Comment: Interpretive Data Percent cell count reference ranges are not reported, since discordance with absolute values may lead to misinterpretation of CBC data. Current Interpretive Data was last revised on 2018. Lymphocyte pct 21.6 % [facility] Comment: Interpretive Data Percent cell count reference ranges are not reported, since discordance with absolute values may lead to misinterpretation of CBC data. Current Interpretive Data was last revised on 2018. Monocyte pct 9.2 % [facility] Comment: Interpretive Data Percent cell count reference ranges are not reported, since discordance with absolute values may lead to misinterpretation of CBC data. Current Interpretive Data was last revised on 2018. Eosinophil pct 2.1 % [facility] Comment: Interpretive Data Percent cell count reference ranges are not reported, since discordance with absolute values may lead to misinterpretation of CBC data. Current Interpretive Data was last revised on 2018. Basophil pct 0.5 % [facility] Comment: Interpretive Data Percent cell count reference ranges are not reported, since discordance with absolute values may lead to misinterpretation of CBC data. Current Interpretive Data was last revised on 2018. Blood 12/31/2024 10:3 5 AM ARMATURE VARNISHER 12/31/2024 4:22 PM ARMATURE VARNISHER us Vinny Lugo DO LAB BLOOD ORDERABLES Final Resul t [facility] [address] Department [place] [address] * (ABNORMAL) Comprehensive metabolic panel, without glucose (Outreach) (12/31/2024 10:35 AM ARMATURE VARNISHER) Sodium 141 135 - 145 mmol/L Potassium, pl 4.1 3.3 - 4.9 mmol/L [facility] Chloride 99 97 - 110 mmol/L [facility] CO2 31 22 - 32 mmol/L [facility] Anion gap 11 2 - 15 mmol/L [facility] BUN 15 6 - 25 mg/dL [facility] Creatinine 3.65(H) 0.60 - 1.10 mg/dL [facility] Calcium 8.2(L) 8.5 - 10.3 mg/dL [facility] Protein, pl 7.3 6.5 - 8.5 g/dL [facility] Albumin 2.6(L) 3.5 - 5.0 g/dL [facility] Bilirubin, total 0.4 0.1 - 1.2 mg/dL [facility] Alk phos 138(H) 40 - 130 Units/L [facility] AST 22 10 - 45 Units/L [facility] ALT 12 7 - 45 Units/L [facility] Blood 12/31/2024 10:3 5 AM ARMATURE VARNISHER 12/31/2024 4:21 PM ARMATURE VARNISHER Vinny Lugo DO LAB BLOOD ORDERABLES Final Resul t [facility] [address] Department [place] [address] * (ABNORMAL) CBC with auto differential (12/31/2024 10:35 AM ARMATURE VARNISHER) WBC 3.8 3.8 - 9.9 K/cumm Hgb 9.5(L) 11.9 - 15.5 g/dL [facility] Hct 31.4(L) 35.6 - 45.5 % [facility] Plt 169 150 - 400 K/cumm [facility] MPV 11.9 9.1 - 12.3 fL [facility] RBC 3.18(L) 3.90 - 5.20 M/cumm [facility] MCV 98.7(H) 81.3 - 96.4 fL [facility] MCH 29.9 27.1 - 33.3 pg [facility] MCHC 30.3(L) 32.3 - 35.7 g/dL [facility] RDW CV 17.3(H) 11.1 - 14.9 % [facility] RDW SD 61.4(H) 35.7 - 48.1 fL [facility] NRBC abs 0.00 0.00 - 0.01 K/cumm [facility] Blood 12/31/2024 10:3 5 AM ARMATURE VARNISHER 12/31/2024 4:22 PM ARMATURE VARNISHER Vinny Lugo DO LAB BLOOD ORDERABLES Final Resul t [facility] [address] Department [place] [address] * Glucose, random (Outreach) (12/24/2024 1:45 PM ARMATURE VARNISHER) Glucose 158 70 - 199 mg/dL Comment: Interpretive Data Fasting glucose >/= 126 mg/dl is diagnostic for diabetes. Fasting is defined as no caloric intake for at least 8 hours. Fasting glucose between 100 mg/dl to 125 mg/dl is diagnostic of prediabetes. In a patient with classic symptoms of hyperglycemia or hyperglycemic crisis, a random glucose >/= 200 mg/dl is diagnostic for diabetes. In the absence of unequivocal hyperglycemia, results should be confirmed by repeat testing. The classification and Diagnosis of Diabetes Diabetes Care 202; 46: S19-S40. Current interpretive data was last revised 2022. Blood 12/24/2024 1:45 PM ARMATURE VARNISHER 12/24/2024 3:38 PM ARMATURE VARNISHER us Irma Arias MD LAB BLOOD ORDERABLES Final Resu lt [facility] Department [place] [address] * (ABNORMAL) eGFR (12/24/2024 1:45 PM ARMATURE VARNISHER) eGFR 13(L) >=60 mL/min/1. 73 m2 Comment: Interpretive Data Reference Interval Normal >/= 90 mL/min/1.73m2 Mildly decreased* 60 - 89 mL/min/1.73m2 Mildly to moderately decreased 45 - 59 mL/min/1.73m2 Moderately to severely decreased 30 - 44 mL/min/1.73m2 Severely decreased 15 - 29 mL/min/1.73m2 Kidney Failure < 15 mL/min/1.73m2 *Relative to young adult level Estimated glomerular filtration rate is determined by the 2020 CKD-EPI equation recommended by the National Kidney Foundation (A Unifying Approach to GFR Estimation: Recommendations of the NKF-ASK Task Force on Reassessing the Inclusion of Race in Diagnosing Kidney Disease, CARRILLOSLeydi 2020). The CKD-EPI equation should not be used for patients with unstable renal function and has not been validated in children and those over 70. Current interpretive data was last reviewed 2021. Blood 12/24/2024 1:45 PM ARMATURE VARNISHER 12/24/2024 3:40 PM ARMATURE VARNISHER us Irma Arias MD LAB BLOOD ORDERABLES Final Resu lt [facility] Department [place] [address] * (ABNORMAL) Differential, auto (12/24/2024 1:45 PM ARMATURE VARNISHER) Pathologist [facility] Neutrophil abs 3.7 1.5 - 6.5 K/cumm Imm gran abs 0.1 0.0 - 0.1 K/cumm [facility] Lymphocyte abs 0.7(L) 0.8 - 3.3 K/cumm [facility] Monocyte abs 0.3 0.2 - 0.8 K/cumm [facility] Eosinophil abs 0.0 0.0 - 0.5 K/cumm [facility] Basophil abs 0.0 0.0 - 0.1 K/cumm [facility] Neutrophil pct 78.6 % [facility] Comment: Interpretive Data Percent cell count reference ranges are not reported, since discordance with absolute values may lead to misinterpretation of CBC data. Current Interpretive Data was last revised on 2018. Imm gran pct 1.1 % [facility] Comment: Interpretive Data Percent cell count reference ranges are not reported, since discordance with absolute values may lead to misinterpretation of CBC data. Current Interpretive Data was last revised on 2018. Lymphocyte pct 13.8 % [facility] Comment: Interpretive Data Percent cell count reference ranges are not reported, since discordance with absolute values may lead to misinterpretation of CBC data. Current Interpretive Data was last revised on 2018. Monocyte pct 5.5 % [facility] Comment: Interpretive Data Percent cell count reference ranges are not reported, since discordance with absolute values may lead to misinterpretation of CBC data. Current Interpretive Data was last revised on 2018. Eosinophil pct 0.6 % [facility] Comment: Interpretive Data Percent cell count reference ranges are not reported, since discordance with absolute values may lead to misinterpretation of CBC data. Current Interpretive Data was last revised on 2018. Basophil pct 0.4 % [facility] Comment: Interpretive Data Percent cell count reference ranges are not reported, since discordance with absolute values may lead to misinterpretation of CBC data. Current Interpretive Data was last revised on 2018. Blood 12/24/2024 1:45 PM ARMATURE VARNISHER 12/24/2024 3:38 PM ARMATURE VARNISHER us Irma Arias MD LAB BLOOD ORDERABLES Final Resu lt [facility] Department [place] [address] * (ABNORMAL) Comprehensive metabolic panel, without glucose (Outreach) (12/24/2024 1:45 PM ARMATURE VARNISHER) Sodium 138 135 - 145 mmol/L Potassium, pl 4.6 3.3 - 4.9 mmol/L [facility] Chloride 100 97 - 110 mmol/L [facility] CO2 31 22 - 32 mmol/L [facility] Anion gap 7 2 - 15 mmol/L [facility] BUN 16 6 - 25 mg/dL [facility] Creatinine 3.94(H) 0.60 - 1.10 mg/dL [facility] Calcium 8.4(L) 8.5 - 10.3 mg/dL [facility] Protein, pl 7.7 6.5 - 8.5 g/dL [facility] Albumin 2.5(L) 3.5 - 5.0 g/dL [facility] Bilirubin, total 0.5 0.1 - 1.2 mg/dL [facility] Alk phos 169(H) 40 - 130 Units/L [facility] AST 19 10 - 45 Units/L [facility] ALT 11 7 - 45 Units/L [facility] Blood 12/24/2024 1:45 PM ARMATURE VARNISHER 12/24/2024 3:38 PM ARMATURE VARNISHER Irma Arias MD LAB BLOOD ORDERABLES Final Resu lt Performing Organization Address [facility] Co de Phone Number [facility] Department [place] [address] * (ABNORMAL) CBC with auto differential (12/24/2024 1:45 PM ARMATURE VARNISHER) [facility] WBC 4.7 3.8 - 9.9 K/cumm Hgb 8.7(L) 11.9 - 15.5 g/dL [facility] Hct 27.7(L) 35.6 - 45.5 % [facility] Plt 169 150 - 400 K/cumm [facility] MPV 11.4 9.1 - 12.3 fL [facility] RBC 2.84(L) 3.90 - 5.20 M/cumm [facility] MCV 97.5(H) 81.3 - 96.4 fL [facility] MCH 30.6 27.1 - 33.3 pg [facility] MCHC 31.4(L) 32.3 - 35.7 g/dL [facility] RDW CV 17.2(H) 11.1 - 14.9 % [facility] RDW SD 58.4(H) 35.7 - 48.1 fL [facility] NRBC abs 0.00 0.00 - 0.01 K/cumm [facility] Blood 12/24/2024 1:45 PM ARMATURE VARNISHER 12/24/2024 3:38 PM ARMATURE VARNISHER Irma Arias MD LAB BLOOD ORDERABLES Final Resu lt Performing Organization Address City/[facility]/ZIP Co de Phone Number [facility] [place] [address] * Glucose, random (Outreach) (12/17/2024 11:00 AM ARMATURE VARNISHER) Glucose 112 70 - 199 mg/dL Comment: Interpretive Data Fasting glucose >/= 126 mg/dl is diagnostic for diabetes. Fasting is defined as no caloric intake for at least 8 hours. Fasting glucose between 100 mg/dl to 125 mg/dl is diagnostic of prediabetes. In a patient with classic symptoms of hyperglycemia or hyperglycemic crisis, a random glucose >/= 200 mg/dl is diagnostic for diabetes. In the absence of unequivocal hyperglycemia, results should be confirmed by repeat testing. The classification and Diagnosis of Diabetes Diabetes Care 202; 46: S19-S40. Current interpretive data was last revised 2022. Blood 12/17/2024 11:0 0 AM ARMATURE VARNISHER 12/17/2024 2:17 PM ARMATURE VARNISHER us Irma Arias MD LAB BLOOD ORDERABLES Final Resu lt [facility] [address] Department [place] [address] * (ABNORMAL) eGFR (12/17/2024 11:00 AM ARMATURE VARNISHER) eGFR 12(L) >=60 mL/min/1. 73 m2 Comment: Interpretive Data Reference Interval Normal >/= 90 mL/min/1.73m2 Mildly decreased* 60 - 89 mL/min/1.73m2 Mildly to moderately decreased 45 - 59 mL/min/1.73m2 Moderately to severely decreased 30 - 44 mL/min/1.73m2 Severely decreased 15 - 29 mL/min/1.73m2 Kidney Failure < 15 mL/min/1.73m2 *Relative to young adult level Estimated glomerular filtration rate is determined by the 2020 CKD-EPI equation recommended by the National Kidney Foundation (A Unifying Approach to GFR Estimation: Recommendations of the NKF-ASK Task Force on Reassessing the Inclusion of Race in Diagnosing Kidney Disease, JASN 2020). The CKD-EPI equation should not be used for patients with unstable renal function and has not been validated in children and those over 70. Current interpretive data was last reviewed 2021. Blood 12/17/2024 11:0 0 AM ARMATURE VARNISHER 12/17/2024 3:40 PM ARMATURE VARNISHER us Irma Arias MD LAB BLOOD ORDERABLES Final Resu lt [facility] [address] Department [place] [address] * (ABNORMAL) Differential, auto (12/17/2024 11:00 AM ARMATURE VARNISHER) Neutrophil abs 3.9 1.5 - 6.5 K/cumm Imm gran abs 0.0 0.0 - 0.1 K/cumm [facility] Lymphocyte abs 0.7(L) 0.8 - 3.3 K/cumm [facility] Monocyte abs 0.4 0.2 - 0.8 K/cumm [facility] Eosinophil abs 0.1 0.0 - 0.5 K/cumm [facility] Basophil abs 0.0 0.0 - 0.1 K/cumm [facility] Neutrophil pct 77.1 % [facility] Comment: Interpretive Data Percent cell count reference ranges are not reported, since discordance with absolute values may lead to misinterpretation of CBC data. Current Interpretive Data was last revised on 2018. Imm gran pct 0.2 % [facility] Comment: Interpretive Data Percent cell count reference ranges are not reported, since discordance with absolute values may lead to misinterpretation of CBC data. Current Interpretive Data was last revised on 2018. Lymphocyte pct 12.8 % [facility] Comment: Interpretive Data Percent cell count reference ranges are not reported, since discordance with absolute values may lead to misinterpretation of CBC data. Current Interpretive Data was last revised on 2018. Monocyte pct 7.7 % [facility] Comment: Interpretive Data Percent cell count reference ranges are not reported, since discordance with absolute values may lead to misinterpretation of CBC data. Current Interpretive Data was last revised on 2018. Eosinophil pct 1.6 % [facility] Comment: Interpretive Data Percent cell count reference ranges are not reported, since discordance with absolute values may lead to misinterpretation of CBC data. Current Interpretive Data was last revised on 2018. Basophil pct 0.6 % [facility] Comment: Interpretive Data Percent cell count reference ranges are not reported, since discordance with absolute values may lead to misinterpretation of CBC data. Current Interpretive Data was last revised on 2018. Blood 12/17/2024 11:0 0 AM ARMATURE VARNISHER 12/17/2024 2:20 PM ARMATURE VARNISHER Irma Arias MD LAB BLOOD ORDERABLES Final Resu lt Performing Organization Address [facility] Co de Phone Number [facility] [address] Department [place] [address] * (ABNORMAL) Comprehensive metabolic panel, without glucose (Outreach) (12/17/2024 11:00 AM ARMATURE VARNISHER) Sodium 140 135 - 145 mmol/L Potassium, pl 3.5 3.3 - 4.9 mmol/L [facility] Chloride 99 97 - 110 mmol/L [facility] CO2 32 22 - 32 mmol/L [facility] Anion gap 9 2 - 15 mmol/L [facility] BUN 13 6 - 25 mg/dL [facility] Creatinine 4.28(H) 0.60 - 1.10 mg/dL [facility] Calcium 8.1(L) 8.5 - 10.3 mg/dL [facility] Protein, pl 7.0 6.5 - 8.5 g/dL [facility] Albumin 2.5(L) 3.5 - 5.0 g/dL [facility] Bilirubin, total 0.4 0.1 - 1.2 mg/dL [facility] Alk phos 130 40 - 130 Units/L [facility] AST 21 10 - 45 Units/L [facility] ALT 15 7 - 45 Units/L [facility] Blood 12/17/2024 11:0 0 AM ARMATURE VARNISHER 12/17/2024 2:17 PM ARMATURE VARNISHER Irma Arias MD LAB BLOOD ORDERABLES Final Resu lt Performing Organization Address [facility]/ZIP Co de Phone Number [facility] [address] Department [place] [address] * (ABNORMAL) CBC with auto differential (12/17/2024 11:00 AM ARMATURE VARNISHER) [facility] WBC 5.1 3.8 - 9.9 K/cumm Hgb 7.6(L) 11.9 - 15.5 g/dL [facility] Hct 23.9(L) 35.6 - 45.5 % [facility] Plt 212 150 - 400 K/cumm [facility] MPV 11.2 9.1 - 12.3 fL [facility] RBC 2.53(L) 3.90 - 5.20 M/cumm [facility] MCV 94.5 81.3 - 96.4 fL [facility] MCH 30.0 27.1 - 33.3 pg [facility] MCHC 31.8(L) 32.3 - 35.7 g/dL [facility] RDW CV 15.0(H) 11.1 - 14.9 % [facility] RDW SD 51.9(H) 35.7 - 48.1 fL [facility] NRBC abs 0.00 0.00 - 0.01 K/cumm [facility] Blood 12/17/2024 11:0 0 AM ARMATURE VARNISHER 12/17/2024 2:20 PM ARMATURE VARNISHER us Irma Arias MD LAB BLOOD ORDERABLES Final Resu lt [facility] [address] [address] [place] [address] * (ABNORMAL) eGFR (12/11/2024 9:51 PM ARMATURE VARNISHER) [facility] eGFR 20(L) >=60 mL/min/1. 73 m2 Comment: Interpretive Data Reference Interval Normal >/= 90 mL/min/1.73m2 Mildly decreased* 60 - 89 mL/min/1.73m2 Mildly to moderately decreased 45 - 59 mL/min/1.73m2 Moderately to severely decreased 30 - 44 mL/min/1.73m2 Severely decreased 15 - 29 mL/min/1.73m2 Kidney Failure < 15 mL/min/1.73m2 *Relative to young adult level Estimated glomerular filtration rate is determined by the 2020 CKD-EPI equation recommended by the National Kidney Foundation (A Unifying Approach to GFR Estimation: Recommendations of the NKF-ASK Task Force on Reassessing the Inclusion of Race in Diagnosing Kidney Disease, JASN 2020). The CKD-EPI equation should not be used for patients with unstable renal function and has not been validated in children and those over 70. Current interpretive data was last reviewed 2021. Blood 12/11/2024 9:51 PM ARMATURE VARNISHER 12/11/2024 10:22 PM ARMATURE VARNISHER us Nick Brown NP LAB BLOOD ORDERABLES Final Result [facility] Department [place] [address] * (ABNORMAL) Differential, auto (12/11/2024 9:51 PM ARMATURE VARNISHER) Neutrophil abs 4.8 1.5 - 6.5 K/cumm Imm gran abs 0.0 0.0 - 0.1 K/cumm [facility] Lymphocyte abs 0.6(L) 0.8 - 3.3 K/cumm [facility] Monocyte abs 0.4 0.2 - 0.8 K/cumm [facility] Eosinophil abs 0.0 0.0 - 0.5 K/cumm [facility] Basophil abs 0.0 0.0 - 0.1 K/cumm [facility] Neutrophil pct 82.2 % [facility] Comment: Interpretive Data Percent cell count reference ranges are not reported, since discordance with absolute values may lead to misinterpretation of CBC data. Current Interpretive Data was last revised on 2018. Imm gran pct 0.3 % [facility] Comment: Interpretive Data Percent cell count reference ranges are not reported, since discordance with absolute values may lead to misinterpretation of CBC data. Current Interpretive Data was last revised on 2018. Lymphocyte pct 9.8 % [facility] Comment: Interpretive Data Percent cell count reference ranges are not reported, since discordance with absolute values may lead to misinterpretation of CBC data. Current Interpretive Data was last revised on 2018. Monocyte pct 6.5 % [facility] Comment: Interpretive Data Percent cell count reference ranges are not reported, since discordance with absolute values may lead to misinterpretation of CBC data. Current Interpretive Data was last revised on 2018. Eosinophil pct 0.7 % [facility] Comment: Interpretive Data Percent cell count reference ranges are not reported, since discordance with absolute values may lead to misinterpretation of CBC data. Current Interpretive Data was last revised on 2018. Basophil pct 0.5 % [facility] Comment: Interpretive Data Percent cell count reference ranges are not reported, since discordance with absolute values may lead to misinterpretation of CBC data. Current Interpretive Data was last revised on 2018. Blood 12/11/2024 9:51 PM ARMATURE VARNISHER 12/11/2024 10:25 PM ARMATURE VARNISHER Vj Oreilly MD LAB BLOOD ORDERABLES Sarah ley Result [facility] Department [place] [address] * (ABNORMAL) CBC without differential (12/11/2024 9:51 PM ARMATURE VARNISHER) WBC 6.1 3.8 - 9.9 K/cumm Hgb 7.7(L) 11.9 - 15.5 g/dL [facility] Hct 23.7(L) 35.6 - 45.5 % [facility] Plt 170 150 - 400 K/cumm [facility] MPV 10.5 9.1 - 12.3 fL [facility] RBC 2.63(L) 3.90 - 5.20 M/cumm [facility] MCV 90.1 81.3 - 96.4 fL [facility] MCH 29.3 27.1 - 33.3 pg [facility] MCHC 32.5 32.3 - 35.7 g/dL [facility] RDW CV 14.7 11.1 - 14.9 % [facility] RDW SD 48.6(H) 35.7 - 48.1 fL [facility] NRBC abs 0.00 0.00 - 0.01 K/cumm [facility] Blood 12/11/2024 9:51 PM ARMATURE VARNISHER 12/11/2024 10:21 PM ARMATURE VARNISHER Nick Brown SPOOLING OPERATOR LAB BLOOD ORDERABLES Final Result [facility] [place] [address] * (ABNORMAL) Phosphorus (12/11/2024 9:51 PM ARMATURE VARNISHER) Phosphorus, pl 2.1(L) 2.3 - 4.5 mg/dL Blood 12/11/2024 9:51 PM ARMATURE VARNISHER 12/11/2024 10:22 PM ARMATURE VARNISHER Nick Brown SPOOLING OPERATOR LAB BLOOD ORDERABLES Final Result Performing Organization Address City/[facility] Co de Phone Number [facility] [place] [address] * Magnesium (12/11/2024 9:51 PM ARMATURE VARNISHER) Magnesium 2.1 1.4 - 2.5 mg/dL Blood 12/11/2024 9:51 PM ARMATURE VARNISHER 12/11/2024 10:22 PM ARMATURE VARNISHER Nick Brown SPOOLING OPERATOR LAB BLOOD ORDERABLES Final Result Performing Organization Address City/[facility] Co de Phone Number [facility] [place] [address] * (ABNORMAL) Hepatic function panel (12/11/2024 9:51 PM ARMATURE VARNISHER) Bilirubin, total 0.4 0.1 - 1.2 mg/dL Bilirubin, direct <0.2 0.1 - 0.3 mg/dL [facility] Protein, pl 7.2 6.5 - 8.5 g/dL [facility] Albumin 2.2(L) 3.5 - 5.0 g/dL [facility] Alk phos 97 40 - 130 Units/L [facility] ALT 11 7 - 45 Units/L [facility] AST 30 10 - 45 Units/L [facility] Blood 12/11/2024 9:51 PM ARMATURE VARNISHER 12/11/2024 10:22 PM ARMATURE VARNISHER us Vj Oreilly MD LAB BLOOD ORDERABLES Sarah l Result [facility] Department [place] [address] * (ABNORMAL) Basic metabolic panel (12/11/2024 9:51 PM ARMATURE VARNISHER) Sodium 136 135 - 145 mmol/L Potassium, pl 4.0 3.3 - 4.9 mmol/L [facility] Chloride 98 97 - 110 mmol/L [facility] CO2 31 22 - 32 mmol/L [facility] Anion gap 7 2 - 15 mmol/L [facility] BUN 7 6 - 25 mg/dL [facility] Creatinine 2.70(H) 0.60 - 1.10 mg/dL [facility] Glucose 196 70 - 199 mg/dL [facility] Comment: Interpretive Data Fasting glucose >/= 126 mg/dl is diagnostic for diabetes. Fasting is defined as no caloric intake for at least 8 hours. Fasting glucose between 100 mg/dl to 125 mg/dl is diagnostic of prediabetes. In a patient with classic symptoms of hyperglycemia or hyperglycemic crisis, a random glucose >/= 200 mg/dl is diagnostic for diabetes. In the absence of unequivocal hyperglycemia, results should be confirmed by repeat testing. The classification and Diagnosis of Diabetes Diabetes Care 2021; 46: S19-S40. Current interpretive data was last revised 2022. Calcium 7.6(L) 8.5 - 10.3 mg/dL [facility] Blood 12/11/2024 9:51 PM ARMATURE VARNISHER 12/11/2024 10:22 PM ARMATURE VARNISHER us Nick Brown SPOOLING OPERATOR LAB BLOOD ORDERABLES Final Result Performing Organization Address City/[facility]/ZIP Co de Phone Number [facility] [place] [address] * (ABNORMAL) CBC without differential (12/10/2024 9:24 PM ARMATURE VARNISHER) Pathologist [facility] WBC 5.8 3.8 - 9.9 K/cumm Hgb 7.6(L) 11.9 - 15.5 g/dL [facility] Hct 22.8(L) 35.6 - 45.5 % [facility] Plt 149(L) 150 - 400 K/cumm [facility] MPV 10.6 9.1 - 12.3 fL [facility] RBC 2.55(L) 3.90 - 5.20 M/cumm [facility] MCV 89.4 81.3 - 96.4 fL [facility] MCH 29.8 27.1 - 33.3 pg [facility] MCHC 33.3 32.3 - 35.7 g/dL [facility] RDW CV 15.2(H) 11.1 - 14.9 % [facility] RDW SD 49.1(H) 35.7 - 48.1 fL [facility] NRBC abs 0.00 0.00 - 0.01 K/cumm [facility] Blood 12/10/2024 9:24 PM ARMATURE VARNISHER 12/10/2024 9:35 PM ARMATURE VARNISHER us Edyta Guerrero SPOOLING OPERATOR LAB BLOOD [place] [address] * Type and screen (12/10/2024 8:34 PM ARMATURE VARNISHER) ABO Rh B Positive Radha, indirect Negative [facility] Blood 12/10/2024 8:34 PM ARMATURE VARNISHER 12/10/2024 8:57 PM ARMATURE VARNISHER Narrative [facility] - 12/10/2024 9:54 PM ARMATURE VARNISHER Has the patient had Daratumumab or Isatuximab in the past 6 months?->Unknown Edda Segal SPOOLING OPERATOR LAB BLOOD BANK TEST ORDERABLES Final Result Performing Organization Address City/[facility]/ZIP Co de Phone Number [facility] [place] [address] * (ABNORMAL) eGFR (12/10/2024 8:31 PM ARMATURE VARNISHER) eGFR 14(L) >=60 mL/min/1. 73 m2 Comment: Interpretive Data Reference Interval Normal >/= 90 mL/min/1.73m2 Mildly decreased* 60 - 89 mL/min/1.73m2 Mildly to moderately decreased 45 - 59 mL/min/1.73m2 Moderately to severely decreased 30 - 44 mL/min/1.73m2 Severely decreased 15 - 29 mL/min/1.73m2 Kidney Failure < 15 mL/min/1.73m2 *Relative to young adult level Estimated glomerular filtration rate is determined by the 2020 CKD-EPI equation recommended by the National Kidney Foundation (A Unifying Approach to GFR Estimation: Recommendations of the NKF-ASK Task Force on Reassessing the Inclusion of Race in Diagnosing Kidney Disease, JASN 2020). The CKD-EPI equation should not be used for patients with unstable renal function and has not been validated in children and those over 70. Current interpretive data was last reviewed 2021. Blood 12/10/2024 8:31 PM ARMATURE VARNISHER 12/10/2024 8:51 PM ARMATURE VARNISHER Nick Brown SPOOLING OPERATOR LAB BLOOD ORDERABLES Final Result [facility] [place] [address] * (ABNORMAL) CBC without differential (12/10/2024 8:31 PM ARMATURE VARNISHER) WBC 5.4 3.8 - 9.9 K/cumm Hgb 6.9(L) 11.9 - 15.5 g/dL [facility] Hct 20.9(L) 35.6 - 45.5 % [facility] Plt 129(L) 150 - 400 K/cumm [facility] MPV 11.1 9.1 - 12.3 fL [facility] RBC 2.33(L) 3.90 - 5.20 M/cumm [facility] MCV 89.7 81.3 - 96.4 fL [facility] MCH 29.6 27.1 - 33.3 pg [facility] MCHC 33.0 32.3 - 35.7 g/dL [facility] RDW CV 15.3(H) 11.1 - 14.9 % [facility] RDW SD 50.3(H) 35.7 - 48.1 fL [facility] NRBC abs 0.00 0.00 - 0.01 K/cumm [facility] Blood 12/10/2024 8:31 PM ARMATURE VARNISHER 12/10/2024 8:51 PM ARMATURE VARNISHER Nick Brown SPOOLING OPERATOR LAB BLOOD ORDERABLES Final Result Performing Organization Address City/[facility]/ZIP Co de Phone Number [facility] Department [place] [place] [address] * Phosphorus (12/10/2024 8:31 PM ARMATURE VARNISHER) [facility] Phosphorus, pl 2.3 2.3 - 4.5 mg/dL Blood 12/10/2024 8:31 PM ARMATURE VARNISHER 12/10/2024 8:51 PM ARMATURE VARNISHER Nick Brown SPOOLING OPERATOR LAB BLOOD ORDERABLES Final Result Performing Organization Address City/[facility] Co de Phone Number [facility] Department [place] [address] * Magnesium (12/10/2024 8:31 PM ARMATURE VARNISHER) Magnesium 2.0 1.4 - 2.5 mg/dL Blood 12/10/2024 8:31 PM ARMATURE VARNISHER 12/10/2024 8:51 PM ARMATURE VARNISHER Nick Brown NP LAB BLOOD ORDERABLES Final Result Performing Organization Address City/[facility]/ZIP Co de Phone Number [facility] [place] [address] * (ABNORMAL) Basic metabolic panel (12/10/2024 8:31 PM ARMATURE VARNISHER) Pathologist [facility] Sodium 135 135 - 145 mmol/L Potassium, pl 3.6 3.3 - 4.9 mmol/L [facility] Chloride 100 97 - 110 mmol/L [facility] CO2 28 22 - 32 mmol/L [facility] Anion gap 7 2 - 15 mmol/L [facility] BUN 12 6 - 25 mg/dL [facility] Creatinine 3.80(H) 0.60 - 1.10 mg/dL [facility] Glucose 158 70 - 199 mg/dL [facility] Comment: Interpretive Data Fasting glucose >/= 126 mg/dl is diagnostic for diabetes. Fasting is defined as no caloric intake for at least 8 hours. Fasting glucose between 100 mg/dl to 125 mg/dl is diagnostic of prediabetes. In a patient with classic symptoms of hyperglycemia or hyperglycemic crisis, a random glucose >/= 200 mg/dl is diagnostic for diabetes. In the absence of unequivocal hyperglycemia, results should be confirmed by repeat testing. The classification and Diagnosis of Diabetes Diabetes Care 2021; 46: S19-S40. Current interpretive data was last revised 2022. Calcium 7.2(L) 8.5 - 10.3 mg/dL [facility] Blood 12/10/2024 8:31 PM ARMATURE VARNISHER 12/10/2024 8:51 PM ARMATURE VARNISHER Nick Brown NP LAB BLOOD ORDERABLES Final Result Performing Organization Address [facility]/ZIP Co de Phone Number [facility] [place] [address] * Infection Prevention Leidy auris PCR, surveillance Axilla/Groin (12/10/2024 6:41 PM ARMATURE VARNISHER) [facility] Leidy auris DNA Not Detected Not Detected [facility] Comment: Interpretive Data Testing performed by [facility]ious Disease [facility] using the Jannie [email or web address] [id number] Leidy auris assay. This assay detects DNA from Leidy auris using Real-Time PCR. This assay is laboratory developed and is not cleared by the [facility] Food and Drug Administration. The performance characteristics have been verified by the [facility]. Axilla/Groin 12/10/2024 6:41 PM ARMATURE VARNISHER 12/10/2024 7:05 PM ARMATURE VARNISHER Paco [place] MD LAB MICROBIOLOGY - GENERAL ORDER CHERI Final Result [facility] [place] [address] [facility] * (ABNORMAL) CBC without differential (12/09/2024 9:36 PM ARMATURE VARNISHER) [facility] WBC 6.1 3.8 - 9.9 K/cumm Hgb 7.9(L) 11.9 - 15.5 g/dL [facility] Hct 23.6(L) 35.6 - 45.5 % [facility] Plt 148(L) 150 - 400 K/cumm [facility] MPV 10.7 9.1 - 12.3 fL [facility] RBC 2.65(L) 3.90 - 5.20 M/cumm [facility] MCV 89.1 81.3 - 96.4 fL [facility] MCH 29.8 27.1 - 33.3 pg [facility] MCHC 33.5 32.3 - 35.7 g/dL [facility] RDW CV 15.3(H) 11.1 - 14.9 % [facility] RDW SD 50.2(H) 35.7 - 48.1 fL [facility] NRBC abs 0.00 0.00 - 0.01 K/cumm [facility] Blood 12/09/2024 9:36 PM ARMATURE VARNISHER 12/09/2024 10:12 PM ARMATURE VARNISHER Nick Brown SPOOLING OPERATOR LAB BLOOD ORDERABLES Final Result Performing Organization Address City/[facility] Co de Phone Number [facility] [place] [address] * (ABNORMAL) eGFR (12/09/2024 9:28 PM ARMATURE VARNISHER) eGFR 22(L) >=60 mL/min/1. 73 m2 Comment: Interpretive Data Reference Interval Normal >/= 90 mL/min/1.73m2 Mildly decreased* 60 - 89 mL/min/1.73m2 Mildly to moderately decreased 45 - 59 mL/min/1.73m2 Moderately to severely decreased 30 - 44 mL/min/1.73m2 Severely decreased 15 - 29 mL/min/1.73m2 Kidney Failure < 15 mL/min/1.73m2 *Relative to young adult level Estimated glomerular filtration rate is determined by the 2020 CKD-EPI equation recommended by the National Kidney Foundation (A Unifying Approach to GFR Estimation: Recommendations of the NKF-ASK Task Force on Reassessing the Inclusion of Race in Diagnosing Kidney Disease, JASN 2020). The CKD-EPI equation should not be used for patients with unstable renal function and has not been validated in children and those over 70. Current interpretive data was last reviewed 2021. Blood 12/09/2024 9:28 PM ARMATURE VARNISHER 12/09/2024 10:13 PM ARMATURE VARNISHER Nick Brown NP LAB BLOOD ORDERABLES Final Result Performing Organization Address City/[facility]/ZIP Co de Phone Number [facility] Department [place] [address] * (ABNORMAL) Phosphorus (12/09/2024 9:28 PM ARMATURE VARNISHER) Phosphorus, pl 1.7(L) 2.3 - 4.5 mg/dL Blood 12/09/2024 9:28 PM ARMATURE VARNISHER 12/09/2024 10:08 PM ARMATURE VARNISHER Nick Brown NP LAB BLOOD ORDERABLES Final Result Performing Organization Address [facility] Co de Phone Number [facility] [place] [address] * Magnesium (12/09/2024 9:28 PM ARMATURE VARNISHER) [facility] Magnesium 1.9 1.4 - 2.5 mg/dL Blood 12/09/2024 9:28 PM ARMATURE VARNISHER 12/09/2024 10:08 PM ARMATURE VARNISHER Nick Brown NP LAB BLOOD ORDERABLES Final Result Performing Organization Address [facility] de Phone Number [facility] [place] [address] * Creatine kinase (CK), total (12/09/2024 9:28 PM ARMATURE VARNISHER) [facility] CK 36 30 - 200 Units/L Blood 12/09/2024 9:28 PM ARMATURE VARNISHER 12/09/2024 10:08 PM ARMATURE VARNISHER Vj Oreilly MD LAB BLOOD ORDERABLES Sarah l Result Performing Organization Address [facility] [place] [address] * (ABNORMAL) Basic metabolic panel (12/09/2024 9:28 PM ARMATURE VARNISHER) [facility] Sodium 138 135 - 145 mmol/L Potassium, pl 4.0 3.3 - 4.9 mmol/L [facility] Chloride 101 97 - 110 mmol/L [facility] CO2 31 22 - 32 mmol/L [facility] Anion gap 6 2 - 15 mmol/L [facility] BUN 7 6 - 25 mg/dL [facility] Creatinine 2.54(H) 0.60 - 1.10 mg/dL [facility] Glucose 124 70 - 199 mg/dL [facility] Comment: Interpretive Data Fasting glucose >/= 126 mg/dl is diagnostic for diabetes. Fasting is defined as no caloric intake for at least 8 hours. Fasting glucose between 100 mg/dl to 125 mg/dl is diagnostic of prediabetes. In a patient with classic symptoms of hyperglycemia or hyperglycemic crisis, a random glucose >/= 200 mg/dl is diagnostic for diabetes. In the absence of unequivocal hyperglycemia, results should be confirmed by repeat testing. The classification and Diagnosis of Diabetes Diabetes Care 2021; 46: S19-S40. Current interpretive data was last revised 2022. Calcium 7.4(L) 8.5 - 10.3 mg/dL [facility] Blood 12/09/2024 9:28 PM ARMATURE VARNISHER 12/09/2024 10:08 PM ARMATURE VARNISHER Nick Brown NP LAB BLOOD ORDERABLES Final Result [facility] Department [place] [address] * IR Central Line Placement > 5 Years (12/09/2024 3:57 PM ARMATURE VARNISHER) Anatomical Region Laterality Modality Body N/A X-Ray Angiograph y 12/09/2024 4:17 PM ARMATURE VARNISHER Impressions 12/09/2024 4:41 PM ARMATURE VARNISHER Successful nontunneled catheter placement. PLAN: The catheter is ready for immediate use. When treatment is completed, this catheter can be removed at the bedside according to standard hospital protocol. Dictated by: Kody Maya M.D. The radiology attending physician has personally reviewed this study, and had reviewed and/or edited this written report and agrees with it. Electronically signed by: Solo Salgado M.D. 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 ATTENDING PRESENCE: Solo Salgado M.D., the attending radiologist was present from the beginning to the end of the procedure. SEDATION: None TECHNIQUE: The risks, benefits and alternatives were discussed and informed consent was obtained. Prior to beginning the procedure, [place] Protocol was used to confirm the patient's identity and planned procedure. Fluoroscopy time has been recorded in the electronic medical record. Maximum sterile barriers including cap, mask, hand hygiene, sterile gloves, sterile gown, large sterile drape and 2% chlorhexidine for cutaneous antisepsis were used. The skin over the right internal jugular vein was sterilely prepped, draped and infiltrated with 1% buffered lidocaine. Prior to the procedure, the target vessel was evaluated by ultrasound, an image of the patent vessel recorded, and this image placed in the patient's chart. After sterile prep, this vessel was accessed using realtime ultrasound guidance. A guidewire and catheter were then passed centrally using fluoroscopic guidance. The intravascular length from the access site to the right atrium was assessed. After dilating the tract, a dual lumen lashonda trimmed to the appropriate intravascular length was inserted over the guidewire. The catheter was flushed with 100U/ml heparin and secured in place. A sterile dressing was applied. ESTIMATED BLOOD LOSS: Minimal. CONDITION: Stable DISCHARGED TO: patient care division. FINDINGS: The final fluoroscopic image demonstrates the catheter with its tip in the right atrium. No complications are seen. 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 ATTENDING PRESENCE: Solo Salgado M.D., the attending radiologist was present from the beginning to the end of the procedure. SEDATION: None TECHNIQUE: The risks, benefits and alternatives were discussed and informed consent was obtained. Prior to beginning the procedure, [place] Protocol was used to confirm the patient's identity and planned procedure. Fluoroscopy time has been recorded in the electronic medical record. Maximum sterile barriers including cap, mask, hand hygiene, sterile gloves, sterile gown, large sterile drape and 2% chlorhexidine for cutaneous antisepsis were used. The skin over the right internal jugular vein was sterilely prepped, draped and infiltrated with 1% buffered lidocaine. Prior to the procedure, the target vessel was evaluated by ultrasound, an image of the patent vessel recorded, and this image placed in the patient's chart. After sterile prep, this vessel was accessed using realtime ultrasound guidance. A guidewire and catheter were then passed centrally using fluoroscopic guidance. The intravascular length from the access site to the right atrium was assessed. After dilating the tract, a dual lumen lashonda trimmed to the appropriate intravascular length was inserted over the guidewire. The catheter was flushed with 100U/ml heparin and secured in place. A sterile dressing was applied. ESTIMATED BLOOD LOSS: Minimal. CONDITION: Stable DISCHARGED TO: patient care division. FINDINGS: The final fluoroscopic image demonstrates the catheter with its tip in the right atrium. No complications are seen. IMPRESSION: Successful nontunneled catheter placement. PLAN: The catheter is ready for immediate use. When treatment is completed, this catheter can be removed at the bedside according to standard hospital protocol. Dictated by: Kody Maya M.D. The radiology attending physician has personally reviewed this study, and had reviewed and/or edited this written report and agrees with it. Electronically signed by: Solo Salgado M.D. Nick Brown NP IMG IR PROCEDURES Final Re sult * (ABNORMAL) eGFR (12/08/2024 9:08 PM ARMATURE VARNISHER) eGFR 11(L) >=60 mL/min/1. 73 m2 Comment: Interpretive Data Reference Interval Normal >/= 90 mL/min/1.73m2 Mildly decreased* 60 - 89 mL/min/1.73m2 Mildly to moderately decreased 45 - 59 mL/min/1.73m2 Moderately to severely decreased 30 - 44 mL/min/1.73m2 Severely decreased 15 - 29 mL/min/1.73m2 Kidney Failure < 15 mL/min/1.73m2 *Relative to young adult level Estimated glomerular filtration rate is determined by the 2020 CKD-EPI equation recommended by the National Kidney Foundation (A Unifying Approach to GFR Estimation: Recommendations of the NKF-ASK Task Force on Reassessing the Inclusion of Race in Diagnosing Kidney Disease, JASN 2020). The CKD-EPI equation should not be used for patients with unstable renal function and has not been validated in children and those over 70. Current interpretive data was last reviewed 2021. Blood 12/08/2024 9:08 PM ARMATURE VARNISHER 12/08/2024 9:54 PM ARMATURE VARNISHER Nick Brown NP LAB BLOOD ORDERABLES Final Result Performing Organization Address City/[facility] [facility] Co de Phone Number [facility] Department [place] [employer] [place] [address] * (ABNORMAL) CBC without differential (12/08/2024 9:08 PM ARMATURE VARNISHER) WBC 7.2 3.8 - 9.9 K/cumm Hgb 8.1(L) 11.9 - 15.5 g/dL [facility] Hct 24.4(L) 35.6 - 45.5 % [facility] Plt 145(L) 150 - 400 K/cumm [facility] MPV 10.8 9.1 - 12.3 fL [facility] RBC 2.74(L) 3.90 - 5.20 M/cumm [facility] MCV 89.1 81.3 - 96.4 fL [facility] MCH 29.6 27.1 - 33.3 pg [facility] MCHC 33.2 32.3 - 35.7 g/dL [facility] RDW CV 15.7(H) 11.1 - 14.9 % [facility] RDW SD 51.0(H) 35.7 - 48.1 fL [facility] NRBC abs 0.00 0.00 - 0.01 K/cumm [facility] Blood 12/08/2024 9:08 PM ARMATURE VARNISHER 12/08/2024 9:55 PM ARMATURE VARNISHER Nick Brown NP LAB BLOOD ORDERABLES Final Result Performing Organization Address [facility]/ZIP Co de Phone Number [facility] [place] [address] * Phosphorus (12/08/2024 9:08 PM ARMATURE VARNISHER) [facility] Phosphorus, pl 2.4 2.3 - 4.5 mg/dL Blood 12/08/2024 9:08 PM ARMATURE VARNISHER 12/08/2024 9:54 PM ARMATURE VARNISHER Nick Brown SPOOLING OPERATOR LAB BLOOD ORDERABLES Final Result Performing Organization Address City/[facility]/ZIP Co de Phone Number [facility] Department [place] [address] * Magnesium (12/08/2024 9:08 PM ARMATURE VARNISHER) [facility] Magnesium 2.1 1.4 - 2.5 mg/dL Blood 12/08/2024 9:08 PM ARMATURE VARNISHER 12/08/2024 9:54 PM ARMATURE VARNISHER Nick Brown SPOOLING OPERATOR LAB BLOOD ORDERABLES Final Result Performing Organization Address [facility] de Phone Number [facility] Department [place] [address] * (ABNORMAL) Basic metabolic panel (12/08/2024 9:08 PM ARMATURE VARNISHER) [facility] Sodium 131(L) 135 - 145 mmol/L Potassium, pl 4.0 3.3 - 4.9 mmol/L [facility] Chloride 96(L) 97 - 110 mmol/L [facility] CO2 28 22 - 32 mmol/L [facility] Anion gap 7 2 - 15 mmol/L [facility] BUN 17 6 - 25 mg/dL [facility] Creatinine 4.41(H) 0.60 - 1.10 mg/dL [facility] Glucose 126 70 - 199 mg/dL [facility] Comment: Interpretive Data Fasting glucose >/= 126 mg/dl is diagnostic for diabetes. Fasting is defined as no caloric intake for at least 8 hours. Fasting glucose between 100 mg/dl to 125 mg/dl is diagnostic of prediabetes. In a patient with classic symptoms of hyperglycemia or hyperglycemic crisis, a random glucose >/= 200 mg/dl is diagnostic for diabetes. In the absence of unequivocal hyperglycemia, results should be confirmed by repeat testing. The classification and Diagnosis of Diabetes Diabetes Care 2021; 46: S19-S40. Current interpretive data was last revised 2022. Calcium 7.8(L) 8.5 - 10.3 mg/dL [facility] Blood 12/08/2024 9:08 PM ARMATURE VARNISHER 12/08/2024 9:54 PM ARMATURE VARNISHER Nick Brown NP LAB BLOOD ORDERABLES Final Result [facility] Department [place] [address] * (ABNORMAL) CBC without differential (12/08/2024 12:51 PM ARMATURE VARNISHER) WBC 7.5 3.8 - 9.9 K/cumm Hgb 8.3(L) 11.9 - 15.5 g/dL [facility] Hct 25.3(L) 35.6 - 45.5 % [facility] Plt 138(L) 150 - 400 K/cumm [facility] MPV 11.3 9.1 - 12.3 fL [facility] RBC 2.79(L) 3.90 - 5.20 M/cumm [facility] MCV 90.7 81.3 - 96.4 fL [facility] MCH 29.7 27.1 - 33.3 pg [facility] MCHC 32.8 32.3 - 35.7 g/dL [facility] RDW CV 15.5(H) 11.1 - 14.9 % [facility] RDW SD 51.3(H) 35.7 - 48.1 fL [facility] NRBC abs 0.00 0.00 - 0.01 K/cumm [facility] Blood 12/08/2024 12:5 1 PM ARMATURE VARNISHER 12/08/2024 1:23 PM ARMATURE VARNISHER Nick E. Brown SPOOLING OPERATOR LAB BLOOD ORDERABLES Final Result [facility] Department [place] [address] * XR Chest 1 View (12/08/2024 9:10 AM ARMATURE VARNISHER) Anatomical Region Laterality Modality Body, Chest N/A Computed Radiogr aphy 12/09/2024 11:0 6 AM ARMATURE VARNISHER Impressions 12/09/2024 11:06 AM ARMATURE VARNISHER Comparison to 12/06/2024. There is a right-sided central venous catheter with tip over the superior cavoatrial junction. Heart and mediastinum are unchanged status post median sternotomy and mitral valve replacement. There is a small left pleural effusion with partial atelectasis in the left lung base, slightly increased from prior. Small right apical pneumothorax, slightly decreased in size from prior. No left pneumothorax seen. Electronically signed by: Nas Mishra M.D. Narrative 12/09/2024 11:06 AM ARMATURE VARNISHER EXAMINATION: 1 view chest radiograph Procedure Note Nas Mishra MD - 12/09/2024 EXAMINATION: 1 view chest radiograph IMPRESSION: Comparison to 12/06/2024. There is a right-sided central venous catheter with tip over the superior cavoatrial junction. Heart and mediastinum are unchanged status post median sternotomy and mitral valve replacement. There is a small left pleural effusion with partial atelectasis in the left lung base, slightly increased from prior. Small right apical pneumothorax, slightly decreased in size from prior. No left pneumothorax seen. Electronically signed by: Nas Mishra M.D. us Vj Oreilly MD IMG XR PROCEDURES Final R esult * CT Chest WO Contrast (12/08/2024 8:57 AM ARMATURE VARNISHER) Anatomical Region Laterality Modality Body N/A Computed Tomogra phy 12/08/2024 9:50 AM ARMATURE VARNISHER Impressions 12/08/2024 10:53 AM ARMATURE VARNISHER 1. Postsurgical changes of median sternotomy for mitral valve reconstruction with expected postoperative small volume fluid, mediastinal hematoma, and gas subjacent to the sternotomy and mild anterior mediastinal fat stranding. No large chest wall hematoma. 2. Small right hydropneumothorax and small left pleural effusion. Moderate bibasilar atelectasis. Dictated by: Dread Hopper MD The radiology attending physician has personally reviewed this study, and had reviewed and/or edited this written report and agrees with it. Electronically signed by: Enzo Jean-Baptiste M.D. Narrative 12/08/2024 10:53 AM ARMATURE VARNISHER EXAMINATION: CT CHEST WO CONTRAST HISTORY: Evaluate for chest wall hematoma. Mitral valve reconstruction on 12/04/2024 TECHNIQUE: Transaxial computed tomographic images of the chest were obtained without intravenous contrast according to the standard protocol. COMPARISON: CT 11/26/2024 FINDINGS: Imaged thyroid gland is enlarged. Right internal jugular central venous catheter tip terminates at the superior cavoatrial junction. Postsurgical changes of median sternal plating for mitral valve reconstruction. There is small volume fluid and soft tissue gas subjacent to the sternotomy within the anterior mediastinum. There is likely a small amount of adjacent hematoma posterior to the sternotomy. This can be appreciated on image 65. Small volume anterior mediastinum fat stranding. No chest wall hematoma. Small volume soft tissue gas in the anterior chest wall. Epicardial pacing wires are present. Mild coronary artery calcifications. Heart size is at the upper limits of normal with trace pericardial fluid. No thoracic lymphadenopathy. Main pulmonary artery is normal in caliber. Central airways are patent. Small right hydropneumothorax. Small left pleural effusion. Mild bibasilar atelectasis. 3 mm right upper lobe nodule (series 3 image 29). Imaged portions of the upper abdomen show partially imaged atrophic kidneys with cysts. No suspicious osseous lesions. Procedure Note Enzo Jean-Baptiste MD - 12/08/2024 EXAMINATION: CT CHEST WO CONTRAST HISTORY: Evaluate for chest wall hematoma. Mitral valve reconstruction on 12/04/2024 TECHNIQUE: Transaxial computed tomographic images of the chest were obtained without intravenous contrast according to the standard protocol. COMPARISON: CT 11/26/2024 FINDINGS: Imaged thyroid gland is enlarged. Right internal jugular central venous catheter tip terminates at the superior cavoatrial junction. Postsurgical changes of median sternal plating for mitral valve reconstruction. There is small volume fluid and soft tissue gas subjacent to the sternotomy within the anterior mediastinum. There is likely a small amount of adjacent hematoma posterior to the sternotomy. This can be appreciated on image 65. Small volume anterior mediastinum fat stranding. No chest wall hematoma. Small volume soft tissue gas in the anterior chest wall. Epicardial pacing wires are present. Mild coronary artery calcifications. Heart size is at the upper limits of normal with trace pericardial fluid. No thoracic lymphadenopathy. Main pulmonary artery is normal in caliber. Central airways are patent. Small right hydropneumothorax. Small left pleural effusion. Mild bibasilar atelectasis. 3 mm right upper lobe nodule (series 3 image 29). Imaged portions of the upper abdomen show partially imaged atrophic kidneys with cysts. No suspicious osseous lesions. IMPRESSION: 1. Postsurgical changes of median sternotomy for mitral valve reconstruction with expected postoperative small volume fluid, mediastinal hematoma, and gas subjacent to the sternotomy and mild anterior mediastinal fat stranding. No large chest wall hematoma. 2. Small right hydropneumothorax and small left pleural effusion. Moderate bibasilar atelectasis. Dictated by: Dread Hopper MD The radiology attending physician has personally reviewed this study, and had reviewed and/or edited this written report and agrees with it. Electronically signed by: Enzo Jean-Baptiste M.D. Nick Brown NP IMG CT PROCEDURES Final Re sult * Transfuse RBC (12/08/2024 8:06 AM ARMATURE VARNISHER) Blood Vj Oreilly MD BLOOD TRANSFUSION ORDERAB LES Final Result [facility] Department [place] [address] * Prepare RBC: 1 Units (12/08/2024 5:06 AM ARMATURE VARNISHER) Product code [id number] Unit Number [id number] [facility] Product Blood Type BPOS [facility] Dispense Status PRESUMED TRANSFUSED [facility] Blood 12/08/2024 5:06 AM ARMATURE VARNISHER 12/08/2024 5:08 AM ARMATURE VARNISHER Narrative [facility] - 12/08/2024 8:00 PM ARMATURE VARNISHER Are special requirements needed? (All products are leukoreduced and CMV- safe)- >No Date required:-[id number] LRRBC # of [id number] Reasons:-Hgb <7 g/dL} Vj Oreilly MD BLOOD BANK PRODUCT ORDERA BLES Final Result Performing Organization Address [facility] Co de Phone Number [facility] Department [place] [address] * (ABNORMAL) CBC without differential (12/08/2024 3:40 AM ARMATURE VARNISHER) [facility] WBC 5.7 3.8 - 9.9 K/cumm Hgb 6.5(L) 11.9 - 15.5 g/dL [facility] Hct 19.8(L) 35.6 - 45.5 % [facility] Plt 117(L) 150 - 400 K/cumm [facility] MPV 11.5 9.1 - 12.3 fL [facility] RBC 2.19(L) 3.90 - 5.20 M/cumm [facility] MCV 90.4 81.3 - 96.4 fL [facility] MCH 29.7 27.1 - 33.3 pg [facility] MCHC 32.8 32.3 - 35.7 g/dL [facility] RDW CV 15.1(H) 11.1 - 14.9 % [facility] RDW SD 50.4(H) 35.7 - 48.1 fL [facility] NRBC abs 0.00 0.00 - 0.01 K/cumm [facility] Blood 12/08/2024 3:40 AM ARMATURE VARNISHER 12/08/2024 4:46 AM ARMATURE VARNISHER Vj Oreilly MD LAB BLOOD ORDERABLES Sarah l Result Performing Organization Address City/[facility]/ZIP Co de Phone Number [facility] Department [place] [address] * Type and screen (12/08/2024 3:40 AM ARMATURE VARNISHER) ABO Rh B Positive Radha, indirect Negative [facility] Blood 12/08/2024 3:40 AM ARMATURE VARNISHER 12/08/2024 5:34 AM ARMATURE VARNISHER Vj Oreilly MD LAB BLOOD BANK TEST ORDER CHERI Final Result Performing Organization Address City/[facility] [place] [address] * (ABNORMAL) eGFR (12/07/2024 8:59 PM ARMATURE VARNISHER) eGFR 20(L) >=60 mL/min/1. 73 m2 Comment: Interpretive Data Reference Interval Normal >/= 90 mL/min/1.73m2 Mildly decreased* 60 - 89 mL/min/1.73m2 Mildly to moderately decreased 45 - 59 mL/min/1.73m2 Moderately to severely decreased 30 - 44 mL/min/1.73m2 Severely decreased 15 - 29 mL/min/1.73m2 Kidney Failure < 15 mL/min/1.73m2 *Relative to young adult level Estimated glomerular filtration rate is determined by the 2020 CKD-EPI equation recommended by the National Kidney Foundation (A Unifying Approach to GFR Estimation: Recommendations of the NKF-ASK Task Force on Reassessing the Inclusion of Race in Diagnosing Kidney Disease, JASN 2020). The CKD-EPI equation should not be used for patients with unstable renal function and has not been validated in children and those over 70. Current interpretive data was last reviewed 2021. Blood 12/07/2024 8:59 PM ARMATURE VARNISHER 12/07/2024 10:10 PM ARMATURE VARNISHER Nick Brown NP LAB BLOOD ORDERABLES Final Result Performing Organization Address [facility]/[place] [address] * (ABNORMAL) CBC without differential (12/07/2024 8:59 PM ARMATURE VARNISHER) [facility] WBC 8.3 3.8 - 9.9 K/cumm Hgb 7.4(L) 11.9 - 15.5 g/dL [facility] Hct 22.9(L) 35.6 - 45.5 % [facility] Plt 144(L) 150 - 400 K/cumm [facility] MPV 11.4 9.1 - 12.3 fL [facility] RBC 2.49(L) 3.90 - 5.20 M/cumm [facility] MCV 92.0 81.3 - 96.4 fL [facility] MCH 29.7 27.1 - 33.3 pg [facility] MCHC 32.3 32.3 - 35.7 g/dL [facility] RDW CV 15.2(H) 11.1 - 14.9 % [facility] RDW SD 50.8(H) 35.7 - 48.1 fL [facility] NRBC abs 0.00 0.00 - 0.01 K/cumm [facility] Blood 12/07/2024 8:59 PM ARMATURE VARNISHER 12/07/2024 10:10 PM ARMATURE VARNISHER Nick Brown SPOOLING OPERATOR LAB BLOOD ORDERABLES Final Result Performing Organization Address [facility] de Phone Number [facility] [place] [employer] [place] [address] * (ABNORMAL) Phosphorus (12/07/2024 8:59 PM ARMATURE VARNISHER) [facility] Phosphorus, pl 2.1(L) 2.3 - 4.5 mg/dL Blood 12/07/2024 8:59 PM ARMATURE VARNISHER 12/07/2024 10:10 PM ARMATURE VARNISHER Nick Brown SPOOLING OPERATOR LAB BLOOD ORDERABLES Final Result Performing Organization Address [facility] Co de Phone Number [facility] [place] [place] [address] * Magnesium (12/07/2024 8:59 PM ARMATURE VARNISHER) Pathologist [facility] Magnesium 2.0 1.4 - 2.5 mg/dL Blood 12/07/2024 8:59 PM ARMATURE VARNISHER 12/07/2024 10:10 PM ARMATURE VARNISHER Nick Brown NP LAB BLOOD ORDERABLES Final Result [facility] Department [place] [address] * (ABNORMAL) Basic metabolic panel (12/07/2024 8:59 PM ARMATURE VARNISHER) [facility] Sodium 135 135 - 145 mmol/L Potassium, pl 3.3 3.3 - 4.9 mmol/L [facility] Chloride 96(L) 97 - 110 mmol/L [facility] CO2 31 22 - 32 mmol/L [facility] Anion gap 8 2 - 15 mmol/L [facility] BUN 9 6 - 25 mg/dL [facility] Creatinine 2.76(H) 0.60 - 1.10 mg/dL [facility] Glucose 86 70 - 199 mg/dL [facility] Comment: Interpretive Data Fasting glucose >/= 126 mg/dl is diagnostic for diabetes. Fasting is defined as no caloric intake for at least 8 hours. Fasting glucose between 100 mg/dl to 125 mg/dl is diagnostic of prediabetes. In a patient with classic symptoms of hyperglycemia or hyperglycemic crisis, a random glucose >/= 200 mg/dl is diagnostic for diabetes. In the absence of unequivocal hyperglycemia, results should be confirmed by repeat testing. The classification and Diagnosis of Diabetes Diabetes Care 2021; 46: S19-S40. Current interpretive data was last revised 2022. Calcium 7.6(L) 8.5 - 10.3 mg/dL [facility] Blood 12/07/2024 8:59 PM ARMATURE VARNISHER 12/07/2024 10:10 PM ARMATURE VARNISHER Nick E. Brown SPOOLING OPERATOR LAB BLOOD ORDERABLES Final Result Performing Organization Address [facility] de Phone Number [facility] Department [place] [address] * (ABNORMAL) eGFR (12/06/2024 9:25 PM ARMATURE VARNISHER) [facility] eGFR 12(L) >=60 mL/min/1. 73 m2 Comment: Interpretive Data Reference Interval Normal >/= 90 mL/min/1.73m2 Mildly decreased* 60 - 89 mL/min/1.73m2 Mildly to moderately decreased 45 - 59 mL/min/1.73m2 Moderately to severely decreased 30 - 44 mL/min/1.73m2 Severely decreased 15 - 29 mL/min/1.73m2 Kidney Failure < 15 mL/min/1.73m2 *Relative to young adult level Estimated glomerular filtration rate is determined by the 2020 CKD-EPI equation recommended by the National Kidney Foundation (A Unifying Approach to GFR Estimation: Recommendations of the NKF-ASK Task Force on Reassessing the Inclusion of Race in Diagnosing Kidney Disease, JASN 2020). The CKD-EPI equation should not be used for patients with unstable renal function and has not been validated in children and those over 70. Current interpretive data was last reviewed 2021. Blood 12/06/2024 9:25 PM ARMATURE VARNISHER 12/06/2024 9:55 PM ARMATURE VARNISHER Nick Brown SPOOLING OPERATOR LAB BLOOD ORDERABLES Final Result Performing Organization Address [facility] Co de Phone Number [facility] [place] [address] * (ABNORMAL) CBC without differential (12/06/2024 9:25 PM ARMATURE VARNISHER) [facility] WBC 10.6(H) 3.8 - 9.9 K/cumm Hgb 8.9(L) 11.9 - 15.5 g/dL [facility] Hct 27.8(L) 35.6 - 45.5 % [facility] Plt 124(L) 150 - 400 K/cumm [facility] MPV 10.6 9.1 - 12.3 fL [facility] RBC 3.06(L) 3.90 - 5.20 M/cumm [facility] MCV 90.8 81.3 - 96.4 fL [facility] MCH 29.1 27.1 - 33.3 pg [facility] MCHC 32.0(L) 32.3 - 35.7 g/dL [facility] RDW CV 15.5(H) 11.1 - 14.9 % [facility] RDW SD 52.0(H) 35.7 - 48.1 fL [facility] NRBC abs 0.00 0.00 - 0.01 K/cumm [facility] Blood 12/06/2024 9:25 PM ARMATURE VARNISHER 12/06/2024 9:55 PM ARMATURE VARNISHER Nick Brown SPOOLING OPERATOR LAB BLOOD ORDERABLES Final Result Performing Organization Address [facility] de Phone Number [facility] Department [place] [address] * Phosphorus (12/06/2024 9:25 PM ARMATURE VARNISHER) Phosphorus, pl 3.4 2.3 - 4.5 mg/dL Blood 12/06/2024 9:25 PM ARMATURE VARNISHER 12/06/2024 9:55 PM ARMATURE VARNISHER Nick Brwon SPOOLING OPERATOR LAB BLOOD ORDERABLES Final Result Performing Organization Address City/[facility] de Phone Number [facility] [place] [address] * Magnesium (12/06/2024 9:25 PM ARMATURE VARNISHER) Magnesium 2.2 1.4 - 2.5 mg/dL Blood 12/06/2024 9:25 PM ARMATURE VARNISHER 12/06/2024 9:55 PM ARMATURE VARNISHER Nick Brown SPOOLING OPERATOR LAB BLOOD ORDERABLES Final Result [facility] [place] [address] * (ABNORMAL) Basic metabolic panel (12/06/2024 9:25 PM ARMATURE VARNISHER) Pathologist [facility] Sodium 133(L) 135 - 145 mmol/L Potassium, pl 3.6 3.3 - 4.9 mmol/L [facility] Chloride 93(L) 97 - 110 mmol/L [facility] CO2 29 22 - 32 mmol/L [facility] Anion gap 11 2 - 15 mmol/L [facility] BUN 18 6 - 25 mg/dL [facility] Creatinine 4.36(H) 0.60 - 1.10 mg/dL [facility] Glucose 125 70 - 199 mg/dL [facility] Comment: Interpretive Data Fasting glucose >/= 126 mg/dl is diagnostic for diabetes. Fasting is defined as no caloric intake for at least 8 hours. Fasting glucose between 100 mg/dl to 125 mg/dl is diagnostic of prediabetes. In a patient with classic symptoms of hyperglycemia or hyperglycemic crisis, a random glucose >/= 200 mg/dl is diagnostic for diabetes. In the absence of unequivocal hyperglycemia, results should be confirmed by repeat testing. The classification and Diagnosis of Diabetes Diabetes Care 2021; 46: S19-S40. Current interpretive data was last revised 2022. Calcium 8.1(L) 8.5 - 10.3 mg/dL [facility] Blood 12/06/2024 9:25 PM ARMATURE VARNISHER 12/06/2024 9:55 PM ARMATURE VARNISHER us Nick Brown NP LAB BLOOD ORDERABLES Final Result Performing Organization Address City/[facility]/ZIP Co de Phone Number [facility] [place] [address] * TRANSTHORACIC ECHO (TTE) COMPLETE W DOPPLER/CF W CONTRAST (12/06/2024 4:48 PM ARMATURE VARNISHER) [facility] LV EF % CONS SCIMAGE Anatomical Region Laterality Modality Ultrasound 12/06/2024 3:11 PM ARMATURE VARNISHER Narrative 12/06/2024 5:41 PM ARMATURE VARNISHER [facility] [place] [address] Transthoracic Echocardiographic Report Patient Name: QUIN MILLER J : 1970 (54y 4m) Gender: F Study Date: 12/06/2024 03:11:50 PM Ht(Inch): 63 Wt(Lb): 136.02 BSA: 1.66 Evs Manager: Ludy Dickerson [facility] Location: [id number] Order Provider: NICK BROWN Heart Rate: 81 BMI: 24.09 BP: 130 / 76 Quality: The study images were of technically good quality. Ref Provider: NICK BROWN PROCEDURES: Echocardiographic Report: ([id number], [id number]) Transthoracic complete echo with strain imaging and contrast, 2D, spectral and tissue Doppler, color flow Doppler, M-mode. Contrast: Contrast Enhancement was Employed: After initial imaging due to sub- optimal quality related to co-morbidity defined by patient's body habitus and used Perflutren contrast because 2 of 16 LV wall segments in any view not visualized, using the volume necessary to obtain adequate images. 0.8 ml Optison Administered, (2.2 ml wasted). INDICATIONS: Post operation evaluation. FINDINGS: Left Ventricle: Mildly dilated left ventricle based on volume index. Eccentric LV hypertrophy. Normal left ventricular systolic function. The Ejection Fraction (Arroyo's) is measured at 58 %. Left ventricular diastolic function is indeterminate in this study due to the presence of mitral valve repair or replacement. The average global longitudinal strain rate is abnormal. The LV global strain is: -12.4 %. Right Ventricle: Normal right ventricular size. RV function visually appears normal. Left Atrium: The left atrium is normal in size. Right Atrium: The right atrium is normal in size. Atrial Septum: The interatrial septum is normal in appearance. Mitral Valve: There is mild mitral valve regurgitation. The mean transmitral gradient is: 5.65 mmHg. at a heart rate of 80 beats per minute. MV Structure Abnormalities: The mitral valve leaflets are status post repair. A mitral annuloplasty ring is present. Aortic Valve: Trileaflet aortic valve. No aortic valve stenosis. The mean transaortic gradient is 6.96 mmHg. The aortic valve area by the continuity equation (using VTI) is 2.19 cm2. Tricuspid Valve: The tricuspid valve demonstrates normal leaflet structure. There is mild tricuspid regurgitation. Pulmonic Valve: The pulmonic valve demonstrates normal leaflet structure. There is mild pulmonic regurgitation. Pericardium: No pericardial effusion. Aorta: The aortic root is normal in size. The aortic root is normal in size when indexed. There is dilation of the ascending aorta when indexed. IVC: IVC is normal in size. The IVC (inferior vena cava) was <2.1 cm and collapsibility >50%. CONCLUSIONS: 1. Eccentric LV hypertrophy. Normal left ventricular systolic function. The Ejection Fraction (Arroyo's) is measured at 58 %. Left ventricular diastolic function is indeterminate in this study due to the presence of mitral valve repair or replacement. The average global longitudinal strain rate is abnormal. 2. Normal right ventricular size. RV function visually appears normal. 3. There is mild mitral valve regurgitation. The mitral valve leaflets are status post repair. A mitral annuloplasty ring is present. Mean gradient of 5.65 mmHg at HR of 80 bpm. 4. There is mild tricuspid regurgitation. 5. The IVC (inferior vena cava) was <2.1 cm and collapsibility >50%. MEASUREMENTS: 2D/MM Value Range Doppler Value Range LVIDd 2D 4.73 cm [ 3.80 - 5.20 ] AV Peak Cezar 1.64 m/s [ 1.00 - 1.70 ] LVIDs 2D 3.34 cm [ 2.20 - 3.50 ] AV Peak PG 10.76 IVSd 2D 0.95 cm [ 0.60 - 0.90 ] AV Mean PG 6.96 mmHg LVPWd 2D 0.99 cm [ 0.60 - 0.90 ] AV VTI 27.63 cm LV Thickness Ratio 0.96 [ 1.50 - 3.00 ] LVOT Peak Cezar 1.21 m/s [ 0.70 - 1.10 ] LV FS 2D 29.40 % [ 27.00 - 45.00 ] LVOT Peak PG 5.86 LV Mass 2D 162.83 g LVOT Mean PG 3.85 mmHg LV Mass Index 2D 98.09 g/m2 LVOT VTI 20.04 cm RWT 0.42 LVOT Diam 1.96 cm EDV Mod BP 105.56 ml [ 46.00 - 106.00 ] BIENVENIDO VTI 2.19 cm2 LV EDV Index 63.59 ml/m2 LVOT/AV VTI 0.73 - Dimensionless index (DVI) ESV Mod BP 43.90 ml [ 14.00 - 42.00 ] MV E Peak Cezar 1.70 m/s [ 0.60 - 1.30 ] EF Mod BP 58 % [ 54 - 74 ] MV A Peak Cezar 1.27 m/s [ 1.00 - 1.20 ] LV GLS -12.4 % [ -18.0 - -16.0 ] MV E/A 1.34 ratio [ 0.80 - 1.50 ] LA Length 2C 5.12 cm MV Peak Cezar 1.77 m/s LA Length 4C 5.00 cm MV Peak PG 12.53 LA Volume BP 35.39 ml MV Mean PG 5.65 mmHg LA Volume Index 21.32 ml/m2 [ 16.00 - 34.00 ] MV VTI 41.07 cm RV Base Dimen 2D 3.1 cm [ 2.5 - 4.2 ] MV Decel Time 294.05 msec [ 104.00 - 258.00 ] TAPSE 1.04 cm [ 1.71 - 5.00 ] Med E` Cezar 5.81 cm/sec [ 8.00 - 15.00 ] RA Volume 24.51 ml Lat E` Cezar 5.80 cm/sec [ 10.00 - 15.00 ] RA Volume Index 14.77 ml/m2 Average E/E` 29.29 AoR Diam 2D 3.01 cm [ 2.70 - 3.70 ] RV S` 4.29 cm/sec Ao Root Index 1.81 cm/m2 [ 1.00 - 2.00 ] TR Peak Cezar 2.01 m/s [ 1.00 - 2.80 ] Asc Ao Diam 2D 3.61 cm TR Peak PG 16.2 Asc Ao Index 2.17 cm/m2 PV Peak Cezar 0.97 m/s [ 0.40 - 0.80 ] PV Peak PG 3.76 PI ED Cezar 82.82 m/sec - COMPARISONS: Compared to prior study completed on 11/27/2024. As compared with prior study, the following changes are now seen new annuloplasty ring in place with improvement in MR. ATTESTATION: I have reviewed and interpreted the pertinent images and measurements of this study. I attest to the conclusions in the final report that is provided above. DISCLAIMER: The study images and the final report will be retained in the patient chart by the [facility] Laboratory for the legally required time period. This chart constitutes the legal record of any testing performed. Electronically Signed By: Andie Lutz MD 12/06/2024 5:40:59 PM ARMATURE VARNISHER Electronically Signed By: Andie Lutz MD 12/06/2024 5:40:59 PM ARMATURE VARNISHER Procedure Note Andie Lutz, DO - 12/06/2024 [facility] Cardiac [place] [address] Transthoracic Echocardiographic Report Patient Name: QUIN MILLER J : 1970 (54y 4m) Gender: F Study Date: 12/06/2024 03:11:50 PM Ht(Inch): 63 Wt(Lb): 136.02 BSA: 1.66 Evs Manager: Ludy Dickerson [facility] Location: [place] [address] Order Provider:NICK BROWN Heart Rate: 81 BMI: 24.09 BP: 130 / 76 Quality: The study images were oftechnically good quality. Ref Provider: NICK BROWN PROCEDURES: Echocardiographic Report: [id number], [id number]) Transthoracic complete echo withstrain imaging and contrast, 2D, spectral and tissue Doppler, color flow Doppler,M-mode. Contrast: Contrast Enhancement was Employed: After initial imaging due tosub- optimal quality related to co-morbidity defined by patient's body habitus and usedPerflutren contrast because 2 of 16 LV wall segments in any view not visualized,using the volume necessary to obtain adequate images. 0.8 ml Optison Administered, (2.2 mlwasted). INDICATIONS: Post operation evaluation. FINDINGS: Left Ventricle: Mildly dilated left ventricle based on volume index.Eccentric LV hypertrophy. Normal left ventricular systolic function. The EjectionFraction (Arroyo's) is measured at 58 %. Left ventricular diastolic function is indeterminatein this study due to the presence of mitral valve repair or replacement. The averageglobal longitudinal strain rate is abnormal. The LV global strain is: -12.4 %. Right Ventricle: Normal right ventricular size. RV function visuallyappears normal. Left Atrium: The left atrium is normal in size. Right Atrium: The right atrium is normal in size. Atrial Septum: The interatrial septum is normal in appearance. Mitral Valve: There is mild mitral valve regurgitation. The meantransmitral gradient is: 5.65 mmHg. at a heart rate of 80 beats per minute. MV StructureAbnormalities: The mitral valve leaflets are status post repair. A mitral annuloplasty ring ispresent. Aortic Valve: Trileaflet aortic valve. No aortic valve stenosis. The meantransaortic gradient is 6.96 mmHg. The aortic valve area by the continuity equation(using VTI) is 2.19 cm2. Tricuspid Valve: The tricuspid valve demonstrates normal leafletstructure. There is mild tricuspid regurgitation. Pulmonic Valve: The pulmonic valve demonstrates normal leaflet structure.There is mild pulmonic regurgitation. Pericardium: No pericardial effusion. Aorta: The aortic root is normal in size. The aortic root is normal insize when indexed. There is dilation of the ascending aorta when indexed. IVC: IVC is normal in size. The IVC (inferior vena cava) was <2.1 cm andcollapsibility >50%. CONCLUSIONS: 1. Eccentric LV hypertrophy. Normal left ventricular systolic function.The Ejection Fraction (Arroyo's) is measured at 58 %. Left ventricular diastolicfunction is indeterminate in this study due to the presence of mitral valve repair orreplacement. The average global longitudinal strain rate is abnormal. 2. Normal right ventricular size. RV function visually appears normal. 3. There is mild mitral valve regurgitation. The mitral valve leaflets arestatus post repair. A mitral annuloplasty ring is present. Mean gradient of 5.65 mmHgat HR of 80 bpm. 4. There is mild tricuspid regurgitation. 5. The IVC (inferior vena cava) was <2.1 cm and collapsibility >50%. MEASUREMENTS: 2D/MM Value Range DopplerValue Range LVIDd 2D 4.73 cm [ 3.80 - 5.20 ] AV Peak Vel1.64 m/s [ 1.00 - 1.70 ] LVIDs 2D 3.34 cm [ 2.20 - 3.50 ] AV Peak PG10.76 IVSd 2D 0.95 cm [ 0.60 - 0.90 ] AV Mean PG6.96 mmHg LVPWd 2D 0.99 cm [ 0.60 - 0.90 ] AV VTI27.63 cm LV Thickness Ratio 0.96 [ 1.50 - 3.00 ] LVOT Peak Vel1.21 m/s [ 0.70 - 1.10 ] LV FS 2D 29.40 % [ 27.00 - 45.00 ] LVOT Peak PG5.86 LV Mass 2D 162.83 g LVOT Mean PG3.85 mmHg LV Mass Index 2D 98.09 g/m2 LVOT VTI20.04 cm RWT 0.42 LVOT Diam1.96 cm EDV Mod BP 105.56 ml [ 46.00 - 106.00 ] BIENVENIDO VTI2.19 cm2 LV EDV Index 63.59 ml/m2 LVOT/AV VTI0.73 - Dimensionless index (DVI) ESV Mod BP 43.90 ml [ 14.00 - 42.00 ] MV E Peak Vel1.70 m/s [ 0.60 - 1.30 ] EF Mod BP 58 % [ 54 - 74 ] MV A Peak Vel1.27 m/s [ 1.00 - 1.20 ] LV GLS -12.4 % [ -18.0 - -16.0 ] MV E/A1.34 ratio [ 0.80 - 1.50 ] LA Length 2C 5.12 cm MV Peak Vel1.77 m/s LA Length 4C 5.00 cm MV Peak PG12.53 LA Volume BP 35.39 ml MV Mean PG5.65 mmHg LA Volume Index 21.32 ml/m2 [ 16.00 - 34.00 ] MV VTI41.07 cm RV Base Dimen 2D 3.1 cm [ 2.5 - 4.2 ] MV Decel Ggfi276.05 msec [ 104.00 - 258.00 ] TAPSE 1.04 cm [ 1.71 - 5.00 ] Med E` Vel5.81 cm/sec [ 8.00 - 15.00 ] RA Volume 24.51 ml Lat E` Vel5.80 cm/sec [ 10.00 - 15.00 ] RA Volume Index 14.77 ml/m2 Average E/E`29.29 AoR Diam 2D 3.01 cm [ 2.70 - 3.70 ] RV S`4.29 cm/sec Ao Root Index 1.81 cm/m2 [ 1.00 - 2.00 ] TR Peak Vel2.01 m/s [ 1.00 - 2.80 ] Asc Ao Diam 2D 3.61 cm TR Peak PG16.2 Asc Ao Index 2.17 cm/m2 PV Peak Vel0.97 m/s [ 0.40 - 0.80 ] PV Peak PG 3.76 PI ED Cezar 82.82 m/sec - COMPARISONS: Compared to prior study completed on 11/27/2024. As compared with priorstudy, the following changes are now seen new annuloplasty ring in place withimprovement in MR. ATTESTATION: I have reviewed and interpreted the pertinent images and measurements ofthis study. I attest to the conclusions in the final report that is provided above. DISCLAIMER: The study images and the final report will be retained in the patientchart by the Echo Laboratory for the legally required time period. This chart constitutesthe legal record of any testing performed. Electronically Signed By: Andie Lutz MD 12/06/2024 5:40:59 PM ARMATURE VARNISHER Electronically Signed By: Andie Lutz MD 12/06/2024 5:40:59 PM ARMATURE VARNISHER us Nick Brown NP CV ECHO PROCEDURES Final R esult * XR Chest Pa Lateral 2 Views (12/06/2024 12:28 PM ARMATURE VARNISHER) Anatomical Region Laterality Modality Body, Chest N/A Computed Radiogr aphy 12/06/2024 12:3 1 PM ARMATURE VARNISHER Impressions 12/06/2024 12:31 PM ARMATURE VARNISHER The current study is compared with the prior radiograph dated 12/04/2024. Changes of median sternotomy and mitral valve replacement. Right internal jugular central venous catheter tip projects over the right atrium. Epicardial pacing wires are present. Trace bilateral pleural effusions are slightly decreased. There is mild bibasilar atelectasis, similar on the right and improved on the left. No pulmonary edema. Stable small right apical pneumothorax. No left pneumothorax. Stable cardiomegaly. Electronically signed by: Pramod Mcgraw MD, PHD Narrative 12/06/2024 12:31 PM ARMATURE VARNISHER EXAMINATION: 2 view chest radiograph Procedure Note Pramod Mcgraw MD PhD - 12/06/2024 EXAMINATION: 2 view chest radiograph IMPRESSION: The current study is compared with the prior radiograph dated 12/04/2024. Changes of median sternotomy and mitral valve replacement. Right internal jugular central venous catheter tip projects over the right atrium. Epicardial pacing wires are present. Trace bilateral pleural effusions are slightly decreased. There is mild bibasilar atelectasis, similar on the right and improved on the left. No pulmonary edema. Stable small right apical pneumothorax. No left pneumothorax. Stable cardiomegaly. Electronically signed by: Pramod Mcgraw MD, PHD us Nick Brown SPOOLING OPERATOR IMG XR PROCEDURES Final Re sult * POCT glucose (12/06/2024 7:58 AM ARMATURE VARNISHER) Glucose, POC 112 70 - 199 mg/dL Blood 12/06/2024 7:58 AM ARMATURE VARNISHER 12/06/2024 7:58 AM ARMATURE VARNISHER Vj Oreilly MD LAB POCT ORDERABLES - DEV ICE Final Result Performing Organization Address City/[facility]/ZIP Co de Phone Number [facility] Department [place] [employer] [place] [address] * POCT glucose (12/05/2024 9:03 PM ARMATURE VARNISHER) [facility] Glucose, POC 131 70 - 199 mg/dL Blood 12/05/2024 9:03 PM ARMATURE VARNISHER 12/05/2024 9:03 PM ARMATURE VARNISHER Vj Oreilly MD LAB POCT ORDERABLES - DEV ICE Final Result Performing Organization Address City/[facility] Co de Phone Number [facility] Department [place] [place] [address] * (ABNORMAL) eGFR (12/05/2024 7:45 PM ARMATURE VARNISHER) Pathologist [facility] eGFR 22(L) >=60 mL/min/1. 73 m2 Comment: Interpretive Data Reference Interval Normal >/= 90 mL/min/1.73m2 Mildly decreased* 60 - 89 mL/min/1.73m2 Mildly to moderately decreased 45 - 59 mL/min/1.73m2 Moderately to severely decreased 30 - 44 mL/min/1.73m2 Severely decreased 15 - 29 mL/min/1.73m2 Kidney Failure < 15 mL/min/1.73m2 *Relative to young adult level Estimated glomerular filtration rate is determined by the 2020 CKD-EPI equation recommended by the National Kidney Foundation (A Unifying Approach to GFR Estimation: Recommendations of the NKF-ASK Task Force on Reassessing the Inclusion of Race in Diagnosing Kidney Disease, JASN 2020). The CKD-EPI equation should not be used for patients with unstable renal function and has not been validated in children and those over 70. Current interpretive data was last reviewed 2021. Blood 12/05/2024 7:45 PM ARMATURE VARNISHER 12/05/2024 8:28 PM ARMATURE VARNISHER us Nick Brown NP LAB BLOOD ORDERABLES Final Result [facility] Department [place] [address] * (ABNORMAL) Differential, auto (12/05/2024 7:45 PM ARMATURE VARNISHER) Neutrophil abs 11.3(H) 1.5 - 6.5 K/cumm Imm gran abs 0.1 0.0 - 0.1 K/cumm [facility] Lymphocyte abs 0.7(L) 0.8 - 3.3 K/cumm [facility] Monocyte abs 0.9(H) 0.2 - 0.8 K/cumm [facility] Eosinophil abs 0.1 0.0 - 0.5 K/cumm [facility] Basophil abs 0.0 0.0 - 0.1 K/cumm [facility] Neutrophil pct 86.1 % [facility] Comment: Interpretive Data Percent cell count reference ranges are not reported, since discordance with absolute values may lead to misinterpretation of CBC data. Current Interpretive Data was last revised on 2018. Imm gran pct 0.4 % [facility] Comment: Interpretive Data Percent cell count reference ranges are not reported, since discordance with absolute values may lead to misinterpretation of CBC data. Current Interpretive Data was last revised on 2018. Lymphocyte pct 5.3 % [facility] Comment: Interpretive Data Percent cell count reference ranges are not reported, since discordance with absolute values may lead to misinterpretation of CBC data. Current Interpretive Data was last revised on 2018. Monocyte pct 7.1 % [facility] Comment: Interpretive Data Percent cell count reference ranges are not reported, since discordance with absolute values may lead to misinterpretation of CBC data. Current Interpretive Data was last revised on 2018. Eosinophil pct 0.9 % [facility] Comment: Interpretive Data Percent cell count reference ranges are not reported, since discordance with absolute values may lead to misinterpretation of CBC data. Current Interpretive Data was last revised on 2018. Basophil pct 0.2 % [facility] Comment: Interpretive Data Percent cell count reference ranges are not reported, since discordance with absolute values may lead to misinterpretation of CBC data. Current Interpretive Data was last revised on 2018. Blood 12/05/2024 7:45 PM ARMATURE VARNISHER 12/05/2024 8:31 PM ARMATURE VARNISHER us Vj Oreilly MD LAB BLOOD ORDERABLES Sarah ley Result [facility] Department [place] [address] * (ABNORMAL) CBC with auto differential (12/05/2024 7:45 PM ARMATURE VARNISHER) WBC 13.1(H) 3.8 - 9.9 K/cumm Hgb 10.2(L) 11.9 - 15.5 g/dL [facility] Hct 30.9(L) 35.6 - 45.5 % [facility] Plt 123(L) 150 - 400 K/cumm [facility] MPV 10.8 9.1 - 12.3 fL [facility] RBC 3.39(L) 3.90 - 5.20 M/cumm [facility] MCV 91.2 81.3 - 96.4 fL [facility] MCH 30.1 27.1 - 33.3 pg [facility] MCHC 33.0 32.3 - 35.7 g/dL [facility] RDW CV 16.1(H) 11.1 - 14.9 % [facility] RDW SD 52.9(H) 35.7 - 48.1 fL [facility] NRBC abs 0.00 0.00 - 0.01 K/cumm [facility] Blood 12/05/2024 7:45 PM ARMATURE VARNISHER 12/05/2024 8:31 PM ARMATURE VARNISHER us Vj Oreilly MD LAB BLOOD ORDERABLES Sarah l Result [facility] Department [place] [address] * (ABNORMAL) CBC without differential (12/05/2024 7:45 PM ARMATURE VARNISHER) WBC 13.1(H) 3.8 - 9.9 K/cumm Hgb 10.2(L) 11.9 - 15.5 g/dL [facility] Hct 30.9(L) 35.6 - 45.5 % [facility] Plt 123(L) 150 - 400 K/cumm [facility] MPV 10.8 9.1 - 12.3 fL [facility] RBC 3.39(L) 3.90 - 5.20 M/cumm [facility] MCV 91.2 81.3 - 96.4 fL [facility] MCH 30.1 27.1 - 33.3 pg [facility] MCHC 33.0 32.3 - 35.7 g/dL [facility] RDW CV 16.1(H) 11.1 - 14.9 % [facility] RDW SD 52.9(H) 35.7 - 48.1 fL [facility] NRBC abs 0.00 0.00 - 0.01 K/cumm [facility] Blood 12/05/2024 7:45 PM ARMATURE VARNISHER 12/05/2024 8:28 PM ARMATURE VARNISHER us Nick Brown NP LAB BLOOD ORDERABLES Final Result [facility] [place] [address] * Phosphorus (12/05/2024 7:45 PM ARMATURE VARNISHER) Pathologist [facility] Phosphorus, pl 3.7 2.3 - 4.5 mg/dL Blood 12/05/2024 7:45 PM ARMATURE VARNISHER 12/05/2024 8:28 PM ARMATURE VARNISHER Nick Brown SPOOLING OPERATOR LAB BLOOD ORDERABLES Final Result Performing Organization Address [facility] de Phone Number [facility] Department [place] [address] * Magnesium (12/05/2024 7:45 PM ARMATURE VARNISHER) Pathologist [facility] Magnesium 1.9 1.4 - 2.5 mg/dL Blood 12/05/2024 7:45 PM ARMATURE VARNISHER 12/05/2024 8:28 PM ARMATURE VARNISHER Nick Brown NP LAB BLOOD ORDERABLES Final Result Performing Organization Address [facility] de Phone Number [facility] Department [place] [address] * (ABNORMAL) Hepatic function panel (12/05/2024 7:45 PM ARMATURE VARNISHER) [facility] Bilirubin, total 0.5 0.1 - 1.2 mg/dL Bilirubin, direct <0.2 0.1 - 0.3 mg/dL [facility] Protein, pl 7.6 6.5 - 8.5 g/dL [facility] Albumin 2.6(L) 3.5 - 5.0 g/dL [facility] Alk phos 70 40 - 130 Units/L [facility] ALT 9 7 - 45 Units/L [facility] AST 47(H) 10 - 45 Units/L [facility] Blood 12/05/2024 7:45 PM ARMATURE VARNISHER 12/05/2024 8:28 PM ARMATURE VARNISHER Vj Oreilly MD LAB BLOOD ORDERABLES Sarah l Result Performing Organization Address [facility]/ZIP Co de Phone Number [facility] Department [place] [address] * (ABNORMAL) Basic metabolic panel (12/05/2024 7:45 PM ARMATURE VARNISHER) Pathologist [facility] Sodium 134(L) 135 - 145 mmol/L Potassium, pl 4.4 3.3 - 4.9 mmol/L [facility] Chloride 96(L) 97 - 110 mmol/L [facility] CO2 30 22 - 32 mmol/L [facility] Anion gap 8 2 - 15 mmol/L [facility] BUN 8 6 - 25 mg/dL [facility] Creatinine 2.55(H) 0.60 - 1.10 mg/dL [facility] Glucose 130 70 - 199 mg/dL [facility] Comment: Interpretive Data Fasting glucose >/= 126 mg/dl is diagnostic for diabetes. Fasting is defined as no caloric intake for at least 8 hours. Fasting glucose between 100 mg/dl to 125 mg/dl is diagnostic of prediabetes. In a patient with classic symptoms of hyperglycemia or hyperglycemic crisis, a random glucose >/= 200 mg/dl is diagnostic for diabetes. In the absence of unequivocal hyperglycemia, results should be confirmed by repeat testing. The classification and Diagnosis of Diabetes Diabetes Care 2021; 46: S19-S40. Current interpretive data was last revised 2022. Calcium 8.2(L) 8.5 - 10.3 mg/dL [facility] Blood 12/05/2024 7:45 PM ARMATURE VARNISHER 12/05/2024 8:28 PM ARMATURE VARNISHER Nick Brown NP LAB BLOOD ORDERABLES Final Result [facility] Department [place] [address] * POCT glucose (12/05/2024 7:39 PM ARMATURE VARNISHER) Glucose, POC 135 70 - 199 mg/dL Blood 12/05/2024 7:39 PM ARMATURE VARNISHER 12/05/2024 7:39 PM ARMATURE VARNISHER Vj Oreilly MD LAB POCT ORDERABLES - DEV ICE Final Result Performing Organization Address [facility] Co de Phone Number [facility] [place] [address] * POCT glucose (12/05/2024 4:43 PM ARMATURE VARNISHER) Glucose, POC 109 70 - 199 mg/dL Blood 12/05/2024 4:43 PM ARMATURE VARNISHER 12/05/2024 4:43 PM ARMATURE VARNISHER Vj Oreilly MD LAB POCT ORDERABLES - DEV ICE Final Result Performing Organization Address [facility] de Phone Number [facility] [place] [address] * (ABNORMAL) Potassium, whole blood (12/05/2024 11:49 AM ARMATURE VARNISHER) Potassium, bld 2.9(L) 3.3 - 4.9 mmol/L Blood 12/05/2024 11:4 9 AM ARMATURE VARNISHER 12/05/2024 12:02 PM ARMATURE VARNISHER Edda Segal NP LAB BLOOD ORDERABLE S Final Result Performing Organization Address [facility] Co de Phone Number [facility] [place] [address] * POCT glucose (12/05/2024 11:48 AM ARMATURE VARNISHER) Glucose, POC 94 70 - 199 mg/dL Blood 12/05/2024 11:4 8 AM ARMATURE VARNISHER 12/05/2024 11:48 AM ARMATURE VARNISHER jV Oreilly MD LAB POCT ORDERABLES - DEV ICE Final Result Performing Organization Address City/[facility] Co de Phone Number [facility] [place] [address] * Critical Care (12/05/2024 11:39 AM ARMATURE VARNISHER) Narrative Sloan Rivas MD - 12/05/2024 11:39 AM ARMATURE VARNISHER Josef Cardenas NP 12/05/2024 2:14 PM Critical Care Performed by: Josef Cardenas NP Authorized by: Josef Cardenas NP CRITICAL CARE: Team: 83 CTICU Shift: AM Level of Billing: Subsequent Hospital Visit Level 3 My time spent with this patient was 55 minutes: Critical Provider Statement: I have seen and examined the patient on this day of service. I have reviewed and confirmed the history, physical exam, laboratory, and radiographic data as documented in the ICU note. I have reviewed and discussed my treatment plan with the patient's team and other medical/senior internet sales consultant staff. This time was in addition to and separate from care provided by other practitioners on this day of service. I spent time reviewing and interpreting data from bedside monitors, laboratory results, and imaging, I spent time discussing the management of this critically ill patient with consultants and the medical staff and I spent time documenting in the medical record us Josef Cardenas NP IN CLINIC/BEDSIDE ORDERABL ES Final Result * POCT glucose (12/05/2024 7:39 AM ARMATURE VARNISHER) Glucose, POC 121 70 - 199 mg/dL Blood 12/05/2024 7:39 AM ARMATURE VARNISHER 12/05/2024 7:39 AM ARMATURE VARNISHER us Vj Oreilly MD LAB POCT ORDERABLES - DEV ICE Final Result [facility] Department [place] [address] * (ABNORMAL) Potassium, whole blood (12/05/2024 6:36 AM ARMATURE VARNISHER) Potassium, bld 5.3(H) 3.3 - 4.9 mmol/L Blood 12/05/2024 6:36 AM ARMATURE VARNISHER 12/05/2024 6:42 AM ARMATURE VARNISHER Josef Cardenas SPOOLING OPERATOR LAB BLOOD ORDERABLES Final Result Performing Organization Address [facility] de Phone Number [facility] [place] [address] * Tacrolimus level trough (12/05/2024 6:36 AM ARMATURE VARNISHER) Tacrolimus trough 1.5 ng/mL Comment: Interpretive Data Testing performed by liquid chromatography-tandem mass spectrometry. Therapeutic concentrations vary depending on type of transplanted organ and time elapsed since transplant. Typical trough concentrations range from 5-15 ng/mL. This test was developed and its performance characteristics determined by the [facility] consistent with CLIA requirements. This test has not been cleared or approved by the [place] Food and Drug administration. Current interpretive data last reviewed 2020. Blood 12/05/2024 6:36 AM ARMATURE VARNISHER 12/05/2024 6:47 AM ARMATURE VARNISHER us Emely Berry NP LAB BLOOD ORDER CHREI Final Result Performing Organization Address [facility] de Phone Number [facility] [place] [address] * POCT glucose (12/05/2024 4:24 AM ARMATURE VARNISHER) Glucose, POC 116 70 - 199 mg/dL Blood 12/05/2024 4:24 AM ARMATURE VARNISHER 12/05/2024 4:24 AM ARMATURE VARNISHER Vj Oreilly MD LAB POCT ORDERABLES - DEV ICE Final Result Performing Organization Address [facility] Co de Phone Number [facility] of [place] [address] * (ABNORMAL) Potassium, whole blood (12/05/2024 1:25 AM ARMATURE VARNISHER) Potassium, bld 5.6(H) 3.3 - 4.9 mmol/L Blood 12/05/2024 1:25 AM ARMATURE VARNISHER 12/05/2024 1:34 AM ARMATURE VARNISHER us Nica Lozoya SPOOLING OPERATOR LAB BLOOD ORDERABLES Fi nal Result Performing Organization Address City/[facility]/ZIP Co de Phone Number [facility] [place] [address] * (ABNORMAL) eGFR (12/05/2024 1:25 AM ARMATURE VARNISHER) eGFR 13(L) >=60 mL/min/1. 73 m2 Comment: Interpretive Data Reference Interval Normal >/= 90 mL/min/1.73m2 Mildly decreased* 60 - 89 mL/min/1.73m2 Mildly to moderately decreased 45 - 59 mL/min/1.73m2 Moderately to severely decreased 30 - 44 mL/min/1.73m2 Severely decreased 15 - 29 mL/min/1.73m2 Kidney Failure < 15 mL/min/1.73m2 *Relative to young adult level Estimated glomerular filtration rate is determined by the 2020 CKD-EPI equation recommended by the National Kidney Foundation (A Unifying Approach to GFR Estimation: Recommendations of the NKF-ASK Task Force on Reassessing the Inclusion of Race in Diagnosing Kidney Disease, JASN 2020). The CKD-EPI equation should not be used for patients with unstable renal function and has not been validated in children and those over 70. Current interpretive data was last reviewed 2021. Blood 12/05/2024 1:25 AM ARMATURE VARNISHER 12/05/2024 1:39 AM ARMATURE VARNISHER us Edda Segal SPOOLING OPERATOR LAB BLOOD ORDERABLE S Final Result Performing Organization Address City/[facility]/ZIP Co de Phone Number [facility] [place] [address] * POCT glucose (12/05/2024 1:25 AM ARMATURE VARNISHER) Glucose, POC 124 70 - 199 mg/dL Blood 12/05/2024 1:25 AM ARMATURE VARNISHER 12/05/2024 1:25 AM ARMATURE VARNISHER us Vj Oreilly MD LAB POCT ORDERABLES - DEV ICE Final Result Performing Organization Address [facility] Co de Phone Number [facility] Department [place] [address] * (ABNORMAL) CBC without differential (12/05/2024 1:25 AM ARMATURE VARNISHER) Pathologist [facility] WBC 14.2(H) 3.8 - 9.9 K/cumm Hgb 10.4(L) 11.9 - 15.5 g/dL [facility] Hct 31.5(L) 35.6 - 45.5 % [facility] Plt 141(L) 150 - 400 K/cumm [facility] MPV 10.6 9.1 - 12.3 fL [facility] RBC 3.54(L) 3.90 - 5.20 M/cumm [facility] MCV 89.0 81.3 - 96.4 fL [facility] MCH 29.4 27.1 - 33.3 pg [facility] MCHC 33.0 32.3 - 35.7 g/dL [facility] RDW CV 16.2(H) 11.1 - 14.9 % [facility] RDW SD 53.3(H) 35.7 - 48.1 fL [facility] NRBC abs 0.00 0.00 - 0.01 K/cumm [facility] Blood 12/05/2024 1:25 AM ARMATURE VARNISHER 12/05/2024 1:39 AM ARMATURE VARNISHER us Edda Segal SPOOLING OPERATOR LAB BLOOD ORDERABLE S Final Result Performing Organization Address [facility]/ZIP Co de Phone Number [facility] [place] [address] * Type and screen (12/05/2024 1:25 AM ARMATURE VARNISHER) Pathologist [facility] ABO Rh B Positive Radha, indirect Negative [facility] Blood 12/05/2024 1:25 AM ARMATURE VARNISHER 12/05/2024 1:38 AM ARMATURE VARNISHER Narrative [facility] - 12/05/2024 3:44 AM ARMATURE VARNISHER Has the patient had Daratumumab or Isatuximab in the past 6 months?->Unknown Edda Segal SPOOLING OPERATOR LAB BLOOD BANK TEST ORDERABLES Final Result Performing Organization Address City/[facility] Co de Phone Number [facility] [place] [address] * Phosphorus (12/05/2024 1:25 AM ARMATURE VARNISHER) Pathologist [facility] Phosphorus, pl 3.1 2.3 - 4.5 mg/dL Blood 12/05/2024 1:25 AM ARMATURE VARNISHER 12/05/2024 1:39 AM ARMATURE VARNISHER Edda Segal SPOOLING OPERATOR LAB BLOOD ORDERABLE S Final Result Performing Organization Address [facility] de Phone Number [facility] [place] [address] * (ABNORMAL) Magnesium (12/05/2024 1:25 AM ARMATURE VARNISHER) Pathologist [facility] Magnesium 2.7(H) 1.4 - 2.5 mg/dL Blood 12/05/2024 1:25 AM ARMATURE VARNISHER 12/05/2024 1:39 AM ARMATURE VARNISHER Edda Segal SPOOLING OPERATOR LAB BLOOD ORDERABLE S Final Result Performing Organization Address [facility] [place] [address] * (ABNORMAL) Basic metabolic panel (12/05/2024 1:25 AM ARMATURE VARNISHER) Sodium 133(L) 135 - 145 mmol/L Potassium, pl 5.7(H) 3.3 - 4.9 mmol/L [facility] Chloride 102 97 - 110 mmol/L [facility] CO2 26 22 - 32 mmol/L [facility] Anion gap 5 2 - 15 mmol/L [facility] BUN 13 6 - 25 mg/dL [facility] Creatinine 3.96(H) 0.60 - 1.10 mg/dL [facility] Glucose 131 70 - 199 mg/dL [facility] Comment: Interpretive Data Fasting glucose >/= 126 mg/dl is diagnostic for diabetes. Fasting is defined as no caloric intake for at least 8 hours. Fasting glucose between 100 mg/dl to 125 mg/dl is diagnostic of prediabetes. In a patient with classic symptoms of hyperglycemia or hyperglycemic crisis, a random glucose >/= 200 mg/dl is diagnostic for diabetes. In the absence of unequivocal hyperglycemia, results should be confirmed by repeat testing. The classification and Diagnosis of Diabetes Diabetes Care 2021; 46: S19-S40. Current interpretive data was last revised 2022. Calcium 8.7 8.5 - 10.3 mg/dL [facility] Blood 12/05/2024 1:25 AM ARMATURE VARNISHER 12/05/2024 1:39 AM ARMATURE VARNISHER us Edda Segal NP LAB BLOOD ORDERABLE S Final Result Performing Organization Address City/[facility]/ZIP Co de Phone Number [facility] Department [place] [address] * POCT glucose (12/04/2024 8:24 PM ARMATURE VARNISHER) [facility] Glucose, POC 117 70 - 199 mg/dL Blood 12/04/2024 8:24 PM ARMATURE VARNISHER 12/04/2024 8:24 PM ARMATURE VARNISHER us Vj Oreilly MD LAB POCT ORDERABLES - DEV ICE Final Result Performing Organization Address [facility]/ZIP Co de Phone Number [facility] [place] [address] * XR Chest 1 View - in PM (12/04/2024 7:41 PM ARMATURE VARNISHER) Anatomical Region Laterality Modality Body, Chest N/A Computed Radiogr aphy 12/05/2024 9:03 AM ARMATURE VARNISHER Impressions 12/05/2024 10:30 AM ARMATURE VARNISHER Comparison is made to chest radiograph of 12/04/2024 at 1:59 PM. Right internal jugular central venous catheter tip terminates in the right atrium. New sternotomy plates are intact and aligned. Partially imaged epicardial pacing wires. Mitral valve replacement. Mediastinal and pericardial drains in place. Small left pleural effusion with partial collapse of the left lower lobe. Probable trace right pleural effusion. Mild right basilar atelectasis. Small right apical pneumothorax is slightly increased in size. Cardiomediastinal silhouette is unchanged. Dictated by: Festus Titus M.D. The radiology attending physician has personally reviewed this study, and had reviewed and/or edited this written report and agrees with it. Electronically signed by: Enzo Jean-Baptsite M.D. Narrative 12/05/2024 10:30 AM ARMATURE VARNISHER EXAMINATION: 1 view chest radiograph Procedure Note Enzo Jean-Baptiste MD - 12/05/2024 EXAMINATION: 1 view chest radiograph IMPRESSION: Comparison is made to chest radiograph of 12/04/2024 at 1:59 PM. Right internal jugular central venous catheter tip terminates in the right atrium. New sternotomy plates are intact and aligned. Partially imaged epicardial pacing wires. Mitral valve replacement. Mediastinal and pericardial drains in place. Small left pleural effusion with partial collapse of the left lower lobe. Probable trace right pleural effusion. Mild right basilar atelectasis. Small right apical pneumothorax is slightly increased in size. Cardiomediastinal silhouette is unchanged. Dictated by: Festus Titus M.D. The radiology attending physician has personally reviewed this study, and had reviewed and/or edited this written report and agrees with it. Electronically signed by: Enzo Jean-Baptiste M.D. Edda Segal SPOOLING OPERATOR IMG XR PROCEDURES F inal Result * POCT glucose (12/04/2024 7:21 PM ARMATURE VARNISHER) Glucose, POC 141 70 - 199 mg/dL Blood 12/04/2024 7:21 PM ARMATURE VARNISHER 12/04/2024 7:21 PM ARMATURE VARNISHER us Vj Oreilly MD LAB POCT ORDERABLES - DEV ICE Final Result [facility] Department [place] [address] * Critical Care (12/04/2024 6:30 PM ARMATURE VARNISHER) Narrative Sloan Rivas MD - 12/04/2024 6:30 PM ARMATURE VARNISHER Emely Berry NP 12/05/2024 5:51 AM Critical Care Performed by: Emely Berry NP Authorized by: Emely Berry NP CRITICAL CARE: Team: 83 CTICU Shift: PM Level of Billing: Critical Care My time spent with this patient was 75 minutes: Critical Provider Statement: I have seen and examined the patient on this day of service. I have reviewed and confirmed the history, physical exam, laboratory and radiologic data as documented in the signed ICU note. I have reviewed and discussed my treatment plan with the ICU team and other medical/senior internet sales consultant staff, making frequent assessments and decisions regarding this patient's complex medical care. Critical Care time was exclusive of time spent performing separately billed procedures, treating other patients, and teaching. This time was in addition to and separate from critical care provided by other practitioners in my group on this day of service. Critical Care was necessary to treat or prevent imminent or life-threatening deterioration of the following conditions: I spent time reviewing and interpreting data from bedside monitors, laboratory results, and imaging, I spent time discussing the management of this critically ill patient with consultants and the medical staff and I spent time documenting in the medical record us Emely Berry NP IN CLINIC/BEDSI DE ORDERABLES Final Result * (ABNORMAL) Potassium, whole blood (12/04/2024 6:13 PM ARMATURE VARNISHER) Pathologist [facility] Potassium, bld 5.1(H) 3.3 - 4.9 mmol/L Blood 12/04/2024 6:13 PM ARMATURE VARNISHER 12/04/2024 6:48 PM ARMATURE VARNISHER Nica Lozoya NP LAB BLOOD ORDERABLES Fi nal Result Performing Organization Address City/[facility]/ZIP Co de Phone Number [facility] Department [place] [address] * POCT glucose (12/04/2024 6:13 PM ARMATURE VARNISHER) Glucose, POC 192 70 - 199 mg/dL Blood 12/04/2024 6:13 PM ARMATURE VARNISHER 12/04/2024 6:13 PM ARMATURE VARNISHER Result [facility] Vj Oreilly MD LAB POCT ORDERABLES - DEV ICE Final Result Performing Organization Address [facility] de Phone Number [facility] [place] [address] * Infection Prevention Leidy auris PCR, surveillance Axilla/Groin (12/04/2024 5:39 PM ARMATURE VARNISHER) Pathologist [facility] Leidy auris DNA Not Detected Not Detected [facility] Comment: Interpretive Data Testing performed by [facility] Infectious Disease [facility] using the Jannie dawson 6800 Leidy auris assay. This assay detects DNA from Leidy auris using Real-Time PCR. This assay is laboratory developed and is not cleared by the [facility] Food and Drug Administration. The performance characteristics have been verified by the [facility] Infectious Disease [facility]. Axilla/Groin 12/04/2024 5:39 PM ARMATURE VARNISHER 12/04/2024 6:33 PM ARMATURE VARNISHER Paco [place] MD LAB MICROBIOLOGY - GENERAL ORDER CHERI Final Result Performing Organization Address [facility] Co de Phone Number [facility] [place] [address] [facility] * POCT glucose (12/04/2024 3:47 PM ARMATURE VARNISHER) Glucose, POC 182 70 - 199 mg/dL Blood 12/04/2024 3:47 PM ARMATURE VARNISHER 12/04/2024 3:47 PM ARMATURE VARNISHER Vj Oreilly MD LAB POCT ORDERABLES - DEV ICE Final Result Performing Organization Address City/[facility]/ZIP Co de Phone Number [facility] [place] [address] * Oxyhemoglobin, central venous (12/04/2024 2:15 PM ARMATURE VARNISHER) Pathologist [facility] Oxyhemoglobin, CV 90.6 % Comment: Interpretive Data No reference range established. Current interpretive data was last revised 2020. Blood 12/04/2024 2:15 PM ARMATURE VARNISHER 12/04/2024 2:22 PM ARMATURE VARNISHER Edda Segal NP LAB BLOOD ORDERABLE S Final Result Performing Organization Address [facility] Co de Phone Number [facility] [place] [address] * (ABNORMAL) eGFR (12/04/2024 2:15 PM ARMATURE VARNISHER) eGFR 17(L) >=60 mL/min/1. 73 m2 Comment: Interpretive Data Reference Interval Normal >/= 90 mL/min/1.73m2 Mildly decreased* 60 - 89 mL/min/1.73m2 Mildly to moderately decreased 45 - 59 mL/min/1.73m2 Moderately to severely decreased 30 - 44 mL/min/1.73m2 Severely decreased 15 - 29 mL/min/1.73m2 Kidney Failure < 15 mL/min/1.73m2 *Relative to young adult level Estimated glomerular filtration rate is determined by the 2020 CKD-EPI equation recommended by the National Kidney Foundation (A Unifying Approach to GFR Estimation: Recommendations of the NKF-ASK Task Force on Reassessing the Inclusion of Race in Diagnosing Kidney Disease, JASN 2020). The CKD-EPI equation should not be used for patients with unstable renal function and has not been validated in children and those over 70. Current interpretive data was last reviewed 2021. Blood 12/04/2024 2:15 PM ARMATURE VARNISHER 12/04/2024 2:34 PM ARMATURE VARNISHER Vj Oreilly MD LAB BLOOD ORDERABLES Sarah l Result Performing Organization Address [facility] de Phone Number [facility] [place] [address] * (ABNORMAL) aPTT (12/04/2024 2:15 PM ARMATURE VARNISHER) aPTT 44(H) 28 - 38 sec Comment: Interpretive Data Heparin therapeutic range: 66.0 - 100.0 seconds. Range based on correlation with therapeutic heparin activity range of 0.3 - 0.7 Units/mL. Current interpretive data was last revised on 2023. Blood 12/04/2024 2:15 PM ARMATURE VARNISHER 12/04/2024 2:24 PM ARMATURE VARNISHER Vj Oreilly MD LAB BLOOD ORDERABLES Sarah l Result Performing Organization Address [facility] Phone Number [facility] [place] [address] * (ABNORMAL) Protime-INR (12/04/2024 2:15 PM ARMATURE VARNISHER) PT 15.1(H) 9.7 - 13.0 sec INR 1.39(H) 0.90 - 1.20 [facility] Comment: Interpretive data Oral anticoagulant therapeutic ranges: Venous thromboembolism prophylaxis or treatment: 2.0-3.0 CARDIOLOGY Standard range: 2.0-3.0 High-intensity range: 2.5-3.5 Refer to indication-specific guidelines for appropriate target ranges for prosthetic heart valve replacement. Current interpretive data was last revised on 2019. Blood 12/04/2024 2:15 PM ARMATURE VARNISHER 12/04/2024 2:24 PM ARMATURE VARNISHER Vj Oreilly MD LAB BLOOD ORDERABLES Sarah ley Result Performing Organization Address [facility]/ZIP Co de Phone Number [facility] Department [place] [address] * (ABNORMAL) CBC without differential (12/04/2024 2:15 PM ARMATURE VARNISHER) Pathologist [facility] WBC 9.3 3.8 - 9.9 K/cumm Hgb 10.5(L) 11.9 - 15.5 g/dL [facility] Hct 32.0(L) 35.6 - 45.5 % [facility] Plt 122(L) 150 - 400 K/cumm [facility] MPV 10.5 9.1 - 12.3 fL [facility] RBC 3.48(L) 3.90 - 5.20 M/cumm [facility] MCV 92.0 81.3 - 96.4 fL [facility] MCH 30.2 27.1 - 33.3 pg [facility] MCHC 32.8 32.3 - 35.7 g/dL [facility] RDW CV 16.3(H) 11.1 - 14.9 % [facility] RDW SD 54.7(H) 35.7 - 48.1 fL [facility] NRBC abs 0.00 0.00 - 0.01 K/cumm [facility] Blood 12/04/2024 2:15 PM ARMATURE VARNISHER 12/04/2024 2:34 PM ARMATURE VARNISHER Vj Oreilly MD LAB BLOOD ORDERABLES Sarah l Result Performing Organization Address City/[facility]/ZIP Co de Phone Number [facility] Department [place] [address] * Type and screen (12/04/2024 2:15 PM ARMATURE VARNISHER) Pathologist [facility] ABO Rh B Positive Radha, indirect Negative [facility] Blood 12/04/2024 2:15 PM ARMATURE VARNISHER 12/04/2024 2:28 PM ARMATURE VARNISHER Narrative [facility] - 12/04/2024 3:27 PM ARMATURE VARNISHER Has the patient had Daratumumab or Isatuximab in the past 6 months?->Unknown Result [facility] Vj Oreilly MD LAB BLOOD BANK TEST ORDER CHERI Final Result Performing Organization Address [facility] Co de Phone Number [facility] [place] [address] * Triglycerides (12/04/2024 2:15 PM ARMATURE VARNISHER) Triglycerides 76 <=149 mg/dL Comment: Interpretive Data Ages < or = 9 years Acceptable: <75 mg/dL Borderline high: 75-99 mg/dL High: >or= 100 mg/dL Ages 10 to 20 years Acceptable: <90 mg/dL Borderline high: 90-129 mg/dL High: >or= 130 mg/dL Ages > or = 20 years Desirable: <150 mg/dL Borderline high: 150-199 mg/dL High: 200-499 mg/dL Very high: >or= 499 mg/dL Literature References: 1. Expert Panel on Integrated Guidelines for Cardiovascular Health and Risk Reduction in Children and Adolescents. Pediatrics 2011;128:S213 2. NCEP Expert Panel. Circulation 2004;110:227 Current Interpretive Data was last revised on 2018. Blood 12/04/2024 2:15 PM ARMATURE VARNISHER 12/04/2024 2:22 PM ARMATURE VARNISHER Vj Oreilly MD LAB BLOOD ORDERABLES Sarah l Result Performing Organization Address City/[facility] Co de Phone Number [facility] [place] [address] * (ABNORMAL) Magnesium (12/04/2024 2:15 PM ARMATURE VARNISHER) Magnesium 2.6(H) 1.4 - 2.5 mg/dL Blood 12/04/2024 2:15 PM ARMATURE VARNISHER 12/04/2024 2:22 PM ARMATURE VARNISHER Vj Oreilly MD LAB BLOOD ORDERABLES Sarah l Result Performing Organization Address City/[facility]/ZIP Co de Phone Number [facility] [place] [address] * (ABNORMAL) Basic metabolic panel (12/04/2024 2:15 PM ARMATURE VARNISHER) Sodium 134(L) 135 - 145 mmol/L Potassium, pl 5.1(H) 3.3 - 4.9 mmol/L [facility] Comment:Hemolyzed; Potassium value may be falsely elevated by as much as 0.3-0.5 mmol/L. Suggest redraw and reanalysis. Chloride 104 97 - 110 mmol/L [facility] CO2 26 22 - 32 mmol/L [facility] Anion gap 4 2 - 15 mmol/L [facility] BUN 9 6 - 25 mg/dL [facility] Creatinine 3.19(H) 0.60 - 1.10 mg/dL [facility] Glucose 150 70 - 199 mg/dL [facility] Comment: Interpretive Data Fasting glucose >/= 126 mg/dl is diagnostic for diabetes. Fasting is defined as no caloric intake for at least 8 hours. Fasting glucose between 100 mg/dl to 125 mg/dl is diagnostic of prediabetes. In a patient with classic symptoms of hyperglycemia or hyperglycemic crisis, a random glucose >/= 200 mg/dl is diagnostic for diabetes. In the absence of unequivocal hyperglycemia, results should be confirmed by repeat testing. The classification and Diagnosis of Diabetes Diabetes Care 202; 46: S19-S40. Current interpretive data was last revised 2022. Calcium 8.9 8.5 - 10.3 mg/dL [facility] Blood 12/04/2024 2:15 PM ARMATURE VARNISHER 12/04/2024 2:22 PM ARMATURE VARNISHER Vj Oreilly MD LAB BLOOD ORDERABLES Sarah l Result Performing Organization Address City/[facility]/ZIP Co de Phone Number MIC[facility]LET [facility] [place] [address] * (ABNORMAL) POC Blood Gas and Chemistries, Arterial - (12/04/2024 2:10 PM ARMATURE VARNISHER) pH, Art POC 7.41 7.35 - 7.45 pCO2, Art POC 40 35 - 45 mmHg [facility] pO2, Art POC 135(H) 83 - 108 mmHg [facility] Na, POC 134(L) 135 - 145 mmol/L [facility] K POC 5.2(H) 3.3 - 4.9 mmol/L [facility] Comment: Interpretive Data Not all point of care methods assess for hemolysis. Confirm with instrument and retest K+ if not consistent with clinical signs and symptoms. Current Interpretive Data was last revised on 2024. Cl, POC 107 97 - 110 mmol/L [facility] Ionized Ca, POC 5.34(H) 4.50 - 5.10 mg/dL [facility] Glucose, POC 149 70 - 199 mg/dL [facility] Lactate, POC 1.4 0.7 - 2.0 mmol/L [facility] SO2 (yousuf) arterial 99(H) 90 - 95 % [facility] Base excess, POC 0.7 mmol/L [facility] HCO3, Art POC 25 20 - 30 mmol/L [facility] Hct, POC 33.0(L) 36.3 - 45.3 % [facility] Total Hb, POC 11.0(L) 11.9 - 15.5 g/dL [facility] Blood 12/04/2024 2:10 PM ARMATURE VARNISHER 12/04/2024 2:10 PM ARMATURE VARNISHER us Vj Oreilly MD LAB POCT ORDERABLES - DEV ICE Final Result [facility] [place] [address] * Critical Care (12/04/2024 2:09 PM ARMATURE VARNISHER) Narrative Sloan Rivas MD - 12/04/2024 2:09 PM ARMATURE VARNISHER Sloan Rivas MD 01/10/2025 11:05 PM Critical Care Performed by: Edda Segal NP Authorized by: Edda Segal NP CRITICAL CARE: Team: [facility] Shift: AM Level of Billing: Critical Care My time spent with this patient was 110 minutes: Critical Provider Statement: I have seen and examined the patient on this day of service. I have reviewed and confirmed the history, physical exam, laboratory and radiologic data as documented in the signed ICU note. I have reviewed and discussed my treatment plan with the ICU team and other medical/senior internet sales consultant staff, making frequent assessments and decisions regarding this patient's complex medical care. Critical Care time was exclusive of time spent performing separately billed procedures, treating other patients, and teaching. This time was in addition to and separate from critical care provided by other practitioners in my group on this day of service. Critical Care was necessary to treat or prevent imminent or life-threatening deterioration of the following conditions: I spent time reviewing and interpreting data from bedside monitors, laboratory results, and imaging, I spent time discussing the management of this critically ill patient with consultants and the medical staff and I spent time documenting in the medical record us Edda Segal SPOOLING OPERATOR IN CLINIC/BEDSIDE O RDERABLES Edited Result - Final * XR Chest 1 View (12/04/2024 2:05 PM ARMATURE VARNISHER) Anatomical Region Laterality Modality Body, Chest N/A Computed Radiogr aphy 12/04/2024 3:23 PM ARMATURE VARNISHER Impressions 12/04/2024 3:50 PM ARMATURE VARNISHER Comparison is made to radiograph dated 11/25/2024 at 3:54 AM. New median sternotomy plates in place. Changes of mitral annuloplasty. Epicardial pacing wires are in place. Endotracheal tube tip approximately 7 cm above ralph. Gastric tube coursing caudally below the diaphragm and terminating out of field of view. Right internal jugular approach central venous catheter with tip projecting over superior cavoatrial junction. Mediastinal and pericardial drains are in place. Vascular grafting in the left axilla No pleural effusion. Small right apical pneumothorax. Mild left basilar atelectasis. Minimal right basilar atelectasis. Stable cardiomediastinal silhouette. Dictated by: Haydee Myers M.D. The radiology attending physician has personally reviewed this study, and had reviewed and/or edited this written report and agrees with it. Electronically signed by: Mulu Mendoza M.D. Narrative 12/04/2024 3:50 PM ARMATURE VARNISHER EXAMINATION: 1 view chest radiograph Procedure Note Mulu Mendoza MD - 12/04/2024 EXAMINATION: 1 view chest radiograph IMPRESSION: Comparison is made to radiograph dated 11/25/2024 at 3:54 AM. New median sternotomy plates in place. Changes of mitral annuloplasty. Epicardial pacing wires are in place. Endotracheal tube tip approximately 7 cm above ralph. Gastric tube coursing caudally below the diaphragm and terminating out of field of view. Right internal jugular approach central venous catheter with tip projecting over superior cavoatrial junction. Mediastinal and pericardial drains are in place. Vascular grafting in the left axilla No pleural effusion. Small right apical pneumothorax. Mild left basilar atelectasis. Minimal right basilar atelectasis. Stable cardiomediastinal silhouette. Dictated by: Haydee Myers M.D. The radiology attending physician has personally reviewed this study, and had reviewed and/or edited this written report and agrees with it. Electronically signed by: Mulu Mendoza M.D. Vj Oreilly MD IMG XR PROCEDURES Final R esult * (ABNORMAL) POCT hemoglobin, hematocrit and platelet count (12/04/2024 11:53 AM ARMATURE VARNISHER) Hgb, POC 8.4(L) 11.9 - 15.5 g/dL Hematocrit POC 26.0(L) 35.6 - 45.5 % [facility] Platelet POC 84(L) 150 - 400 K/cumm [facility] Blood 12/04/2024 11:5 3 AM ARMATURE VARNISHER 12/04/2024 11:53 AM ARMATURE VARNISHER Vj Oreilly MD LAB POCT ORDERABLES - DEV ICE Final Result [facility] Department [place] [address] * (ABNORMAL) POCT prothrombin time (12/04/2024 11:52 AM ARMATURE VARNISHER) PT, POC 23.8(H) 11.7 - 16.6 sec INR, POC 1.8(H) 0.9 - 1.2 [facility] Blood 12/04/2024 11:5 2 AM ARMATURE VARNISHER 12/04/2024 11:52 AM ARMATURE VARNISHER Vj Oreilly MD LAB POCT ORDERABLES - DEV ICE Final Result Performing Organization Address City/[facility] Co de Phone Number [facility] [place] [address] * POCT Partial thromboplastin time (PTT) (12/04/2024 11:52 AM ARMATURE VARNISHER) APTT, POC 43.6 32.5 - 46.1 sec Blood 12/04/2024 11:5 2 AM ARMATURE VARNISHER 12/04/2024 11:52 AM ARMATURE VARNISHER Vj Oreilly MD LAB POCT ORDERABLES - DEV ICE Final Result Performing Organization Address [facility] Co de Phone Number [facility] Department [place] [employer] [address] * POCT heparin/ACT CPB (12/04/2024 11:51 AM ARMATURE VARNISHER) ACT, CPB 154 112 - 174 sec Blood 12/04/2024 11:5 1 AM ARMATURE VARNISHER 12/04/2024 11:51 AM ARMATURE VARNISHER us Vj Oreilly MD LAB POCT ORDERABLES - DEV ICE Final Result Performing Organization Address [facility] Co de Phone Number [facility] [place] [address] * (ABNORMAL) POC Blood Gas and Chemistries, Arterial - (12/04/2024 11:48 AM ARMATURE VARNISHER) pH, Art POC 7.47(H) 7.35 - 7.45 pCO2, Art POC 36 35 - 45 mmHg [facility] pO2, Art POC 423(H) 83 - 108 mmHg [facility] Na, POC 136 135 - 145 mmol/L [facility] K POC 4.7 3.3 - 4.9 mmol/L [facility] Comment: Interpretive Data Not all point of care methods assess for hemolysis. Confirm with instrument and retest K+ if not consistent with clinical signs and symptoms. Current Interpretive Data was last revised on 2024. Cl, POC 106 97 - 110 mmol/L [facility] Ionized Ca, POC 6.10(H) 4.50 - 5.10 mg/dL [facility] Glucose, POC 158 70 - 199 mg/dL [facility] Lactate, POC 2.4(H) 0.7 - 2.0 mmol/L [facility] SO2 (yousuf) arterial 100(H) 90 - 95 % [facility] Base excess, POC 2.5 mmol/L [facility] HCO3, Art POC 26 20 - 30 mmol/L [facility] Hct, POC 27.0(L) 36.3 - 45.3 % [facility] Total Hb, POC 9.0(L) 11.9 - 15.5 g/dL [facility] Blood 12/04/2024 11:4 8 AM ARMATURE VARNISHER 12/04/2024 11:48 AM ARMATURE VARNISHER us Vj Oreilly MD LAB POCT ORDERABLES - DEV ICE Final Result [facility] Department [place] [address] * (ABNORMAL) POCT heparin/ACT CPB (12/04/2024 11:29 AM ARMATURE VARNISHER) Heparin POC <2.8 units/mL ACT, CPB 738(H) 112 - 174 sec [facility] Blood 12/04/2024 11:2 9 AM ARMATURE VARNISHER 12/04/2024 11:29 AM ARMATURE VARNISHER Vj Oreilly MD LAB POCT ORDERABLES - DEV ICE Final Result [facility] Department [place] [employer] [place] [address] * (ABNORMAL) POC Blood Gas and Chemistries, Arterial - (12/04/2024 11:26 AM ARMATURE VARNISHER) pH, Art POC 7.45 7.35 - 7.45 pCO2, Art POC 39 35 - 45 mmHg [facility] pO2, Art POC 317(H) 83 - 108 mmHg [facility] Na, POC 138 135 - 145 mmol/L [facility] K POC 4.8 3.3 - 4.9 mmol/L [facility] Comment: Interpretive Data Not all point of care methods assess for hemolysis. Confirm with instrument and retest K+ if not consistent with clinical signs and symptoms. Current Interpretive Data was last revised on 2024. Cl, POC 106 97 - 110 mmol/L [facility] Ionized Ca, POC 4.36(L) 4.50 - 5.10 mg/dL [facility] Glucose, POC 170 70 - 199 mg/dL [facility] Lactate, POC 1.9 0.7 - 2.0 mmol/L [facility] SO2 (yousuf) arterial 100(H) 90 - 95 % [facility] Base excess, POC 2.9 mmol/L [facility] HCO3, Art POC 27 20 - 30 mmol/L [facility] Hct, POC 26.0(L) 36.3 - 45.3 % [facility] Total Hb, POC 8.5(L) 11.9 - 15.5 g/dL [facility] Blood 12/04/2024 11:2 6 AM ARMATURE VARNISHER 12/04/2024 11:26 AM ARMATURE VARNISHER Vj Oreilly MD LAB POCT ORDERABLES - DEV ICE Final Result [facility] [place] [place] [address] * (ABNORMAL) POCT heparin/ACT CPB (12/04/2024 10:59 AM ARMATURE VARNISHER) Heparin POC <2.8 units/mL ACT, CPB 888(H) 112 - 174 sec [facility] Blood 12/04/2024 10:5 9 AM ARMATURE VARNISHER 12/04/2024 10:59 AM ARMATURE VARNISHER us Vj Oreilly MD LAB POCT ORDERABLES - DEV ICE Final Result [facility] Department [place] [address] * (ABNORMAL) POC Blood Gas and Chemistries, Arterial - (12/04/2024 10:55 AM ARMATURE VARNISHER) pH, Art POC 7.38 7.35 - 7.45 pCO2, Art POC 46(H) 35 - 45 mmHg [facility] pO2, Art POC 295(H) 83 - 108 mmHg [facility] Na, POC 132(L) 135 - 145 mmol/L [facility] K POC 5.8(H) 3.3 - 4.9 mmol/L [facility] Comment: Interpretive Data Not all point of care methods assess for hemolysis. Confirm with instrument and retest K+ if not consistent with clinical signs and symptoms. Current Interpretive Data was last revised on 2024. Cl, POC 103 97 - 110 mmol/L [facility] Ionized Ca, POC 4.73 4.50 - 5.10 mg/dL [facility] Glucose, POC 186 70 - 199 mg/dL [facility] Lactate, POC 2.3(H) 0.7 - 2.0 mmol/L [facility] SO2 (yousuf) arterial 100(H) 90 - 95 % [facility] Base excess, POC 1.7 mmol/L [facility] HCO3, Art POC 27 20 - 30 mmol/L [facility] Hct, POC 28.0(L) 36.3 - 45.3 % [facility] Total Hb, POC 9.2(L) 11.9 - 15.5 g/dL [facility] Blood 12/04/2024 10:5 5 AM ARMATURE VARNISHER 12/04/2024 10:55 AM ARMATURE VARNISHER Vj Oreilly MD LAB POCT ORDERABLES - DEV ICE Final Result Performing Organization Address City/[facility] Co de Phone Number [facility] [place] [address] * (ABNORMAL) POCT heparin/ACT CPB (12/04/2024 10:24 AM ARMATURE VARNISHER) Pathologist [facility] Heparin POC 3.4 units/mL ACT, CPB 903(H) 112 - 174 sec [facility] Blood 12/04/2024 10:2 4 AM ARMATURE VARNISHER 12/04/2024 10:24 AM ARMATURE VARNISHER Vj Oreilly MD LAB POCT ORDERABLES - DEV ICE Final Result Performing Organization Address [facility] de Phone Number [facility] [place] [address] * (ABNORMAL) POC Blood Gas and Chemistries, Arterial - (12/04/2024 10:20 AM ARMATURE VARNISHER) pH, Art POC 7.47(H) 7.35 - 7.45 pCO2, Art POC 33(L) 35 - 45 mmHg [facility] pO2, Art POC 403(H) 83 - 108 mmHg [facility] Na, POC 132(L) 135 - 145 mmol/L [facility] K POC 4.3 3.3 - 4.9 mmol/L [facility] Comment: Interpretive Data Not all point of care methods assess for hemolysis. Confirm with instrument and retest K+ if not consistent with clinical signs and symptoms. Current Interpretive Data was last revised on 2024. Cl, POC 102 97 - 110 mmol/L [facility] Ionized Ca, POC 4.48(L) 4.50 - 5.10 mg/dL [facility] Glucose, POC 171 70 - 199 mg/dL [facility] Lactate, POC 3.9(H) 0.7 - 2.0 mmol/L [facility] SO2 (yousuf) arterial 100(H) 90 - 95 % [facility] Base excess, POC 0.6 mmol/L [facility] HCO3, Art POC 24 20 - 30 mmol/L [facility] Hct, POC 29.0(L) 36.3 - 45.3 % [facility] Total Hb, POC 9.5(L) 11.9 - 15.5 g/dL [facility] Blood 12/04/2024 10:2 0 AM ARMATURE VARNISHER 12/04/2024 10:20 AM ARMATURE VARNISHER Vj Oreilly MD LAB POCT ORDERABLES - DEV ICE Final Result [facility] [place] [address] * (ABNORMAL) POCT heparin/ACT CPB (12/04/2024 9:49 AM ARMATURE VARNISHER) [facility] Heparin POC 4.1 units/mL ACT, CPB 683(H) 112 - 174 sec [facility] Blood 12/04/2024 9:49 AM ARMATURE VARNISHER 12/04/2024 9:49 AM ARMATURE VARNISHER us Vj Oreilly MD LAB POCT ORDERABLES - DEV ICE Final Result Performing Organization Address City/[facility]/ZIP Co de Phone Number [facility] [place] [address] * Transfuse RBC (12/04/2024 9:41 AM ARMATURE VARNISHER) Blood Fernando Chow MD PhD BLOOD TRANSFUSION ORDERABLES Final Result [facility] [place] [address] * Transfuse RBC (12/04/2024 9:41 AM ARMATURE VARNISHER) Blood Fernando Chow MD PhD BLOOD TRANSFUSION ORDERABLES Final Result [facility] [place] [address] * Surgical pathology (12/04/2024 9:37 AM ARMATURE VARNISHER) Tissue specimen (specimen) (Heart Valve) 12/04/2024 9:37 AM ARMATURE VARNISHER Narrative PATHOLOGY [facility] - 12/06/2024 10:34 AM ARMATURE VARNISHER EPIC results best viewed via link to PDF [facility] [place] [address] Note to Patients: This report may contain a detailed description of human tissue sent by a health care provider to the laboratory for pathologic evaluation. The content of this report is essential for diagnosis and may provide important critical findings. This information may be unfamiliar to patients to review without a medical professional present. It is advised that the patient review this report in the presence of a health care provider who can answer questions and explain the details. SURGICAL PATHOLOGY REPORT FINAL Patient Name: QUIN MILLER Gender: F : 1970 (Age: 54) Address: [address] [place], [place] [id number] Hospital #: [id number] Taken:12/04/2024 Received:12/04/2024 Reported: 12/06/2024 Patient Type: [facility] Inpatient Service: UNKNOWN Location: [place] [address] Physician(s): Radha Matthews Jr., M.D. Diagnosis: A. Heart, mitral valve anterior leaflet, valve replacement: - Acute inflammation and surface necrosis xd/12/06/2024 09:33 By this signature, I attest that the above diagnosis is based upon my personal examination of the slides(and/or other material indicated in the diagnosis). Antoni Sanchez M.D. Report Electronically Reviewed and Signed Out By Antoni Sanchez M.D. 12/06/2024 10:34:12 [place] Blandon M.D., PhD History: Patient is a 54-year-old woman with severe mitral regurgitation. Operative Procedure: repair mitral valve, replacement mitral valve Specimen(s) Received: A: Anterior leaflet vegetation Gross Description: Received in formalin labeled with patient identifiers and anterior leaflet vegetation are two irregular shaggy fragments of rubbery purple pink tissue (1.0 x 0.7 x 0.6 cm in aggregate). The larger fragment is bisected and the specimen is submitted entirely in cassette A1. Jar 0. bao2/12/04/2024 15:19 PA(s): RAMANA Garcia (ASCP)CM By this signature, I attest that the above diagnosis is based upon my personal examination of the slides(and/or other material). Addenda/Procedures The performance characteristics of some immunohistochemical stains, fluorescence in-situ hybridization tests and immunophenotyping by flow cytometry cited in this report (if any) were determined by the Surgical Pathology and Flow Cytometry Departments at [facility] as part of an ongoing senior quality assurance engineer program and in compliance with federally mandated regulations drawn from the Clinical Laboratory Improvement Act of 1988 (CLIA '88). Some of these tests rely on the use of analyte specific reagents and are subject to specific labeling requirements by the US Food and Drug Administration. Such diagnostic tests may only be performed in a facility that is certified by the Department of Health and Human Services as a high complexity laboratory under CLIA '88. The FDA has determined that such clearance or approval is not necessary. This test is used for clinical purposes. It should not be regarded as investigational or for research. Nevertheless, federal rules concerning the medical use of analyte specific reagents require that the following disclaimer be attached to the report: This test was developed and its performance characteristics determined by the Surgical Pathology and Flow Cytometry Departments of [facility]. It has not been cleared or approved by the U. S. Food and Drug Administration. IMAGES AND SCANNED DOCUMENTS, IF INCLUDED, ONLY VIEWABLE IN PDF VERSION OF REPORT us Vj Oreilly MD LAB PATHOLOGY ORDERABLES Final Result PATHOLOGY [facility] 3rd Floor [place], [place] [phone] * MS AN PROCEDURE PLACEHOLDER (12/04/2024 9:34 AM ARMATURE VARNISHER) Anatomical Region Laterality Modality Other Narrative 12/04/2024 9:34 AM ARMATURE VARNISHER Fernando Chow MD PhD 12/04/2024 12:55 PM KALEN Date/time: Staff: Supervising anesthesiologist: Fernando Chow MD PhD Performed by: 1st Fellow: Maycol Yoder MD Preprocedure checklist: patient identified, procedure contraindications assessed, procedure consent, risks, benefits and alternatives discussed, monitors and equipment checked, timeout performed and KALEN probe inserted into esophagus using lubricating jelly General procedure Information: Reason for procedure/indications: assessment of ascending aorta and assessment of surgical repair Performed: personally Procedure performed at surgeon's request: yes Results discussed with surgeon: yes Images submitted to archive: yes Patient location: OR Intubated: yes Bite blocked placed: yes Probe Insertion: easy Complications: no Probe type: adult Modalities: 2D imaging, 3D imaging, continuous wave Doppler, pulsed wave Doppler and color Doppler KALEN machine number: [id number], OR [id number] Billing information: Physician requesting echo: Vj Oreilly MD CPT code: KALEN placement and diagnostic exam, non-congenital (15114) ICD code(s) for medical necessity: 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 Echocardiographic and doppler measurements: Ventricles: Left ventricle: Cavity size: normal Hypertrophy: No Thrombus: No Global function: normal LVEF%: normal Right ventricle: Hypertrophy: no Thrombus: No Global function: normal Interventricular septum: normal Regional function: 1- Basal anteroseptal: normal 2- Basal anterior: normal 3- Basal anterolateral: normal 4- Basal inferolateral: normal 5- Basal inferior: normal 6- Basal inferoseptal: normal 7- Mid anteroseptal: normal 8- Mid anterior: normal 9- Mid anterolateral: normal 10- Mid inferolateral: normal 11- Mid inferior: normal 12- Mid inferoseptal: normal 13- Apical anterior: normal 14- Apical lateral: normal 15- Apical inferior: normal 16- Apical septal: normal 17- [place]: normal Valves: Aortic Valve: Annulus: normal Leaflet morphology: normal Leaflet motion: normal Stenosis: none Regurgitation: none Mitral valve: Annulus: normal Leaflet morphology anterior: normal Leaflet morphology posterior: vegetation Leaflet motion anterior: normal Leaflet motion posterior: normal Stenosis: none Regurgitation: severe Peak gradient: 3 mmHg Mean gradient: 2 mmHg Tricuspid valve: Annulus: normal Leaflet morphology: normal Leaflet motion: normal Stenosis: none Regurgitation: none Pulmonic valve: Annulus: normal Leaflet morphology: calcified Stenosis: none Regurgitation: absent Aorta: Ascending aorta: Size: normal Dissection: no Plaque thickness(mm): 0-3 Plaque mobile: no Aortic arch: Size: normal Dissection: no Plaque thickness(mm): 0-3 Plaque mobile: no Descending aorta: Size: normal Dissection: no Plaque thickness(mm): 0-3 Plaque mobile: no Atria: Right atrium: Size: normal Spontaneous echo contrast: No Thrombus: no Mass: No Left atrium: Size: normal (normal) Spontaneous echo contrast: No Thrombus: no Mass: No Left atrial appendage: normal Interatrial septum: normal Diastolic function and other findings: Pericardium: normal Left pleural effusion: none Right pleural effusion: normal Pulmonary venous flow: blunted systolic flow Pre-procedure KALEN exam summary: Pt under general anesthesia on positive pressure ventilation. 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 Trace TR. trace pericardial effusion without any tamponade effect Pt with no PFO by CFD, no SOMMER thrombus with exit velocities>40 cm/s, no aortic dissection noted. Postprocedure (follow-up) KALEN exam: LV: unchanged RV: unchanged Interventricular septum: unchanged Aortic valve: unchanged Pulmonic valve: unchanged Tricuspid valve: unchanged Atria: unchanged Aorta: unchanged Pericardium: unchanged Left pleural: unchanged Right pleural: unchanged Postprocedure (follow-up) KALEN exam comments: S/p mitral valve repair. Mild residual MR with mean gradient of 5 mm Hg across the mitral valve. Normal biventricular function on no inotropic support. No evidence of LVOT obstruction. Mild MR, no AI. No aortic dissection. Attestation Statement: By signing this report the attending anesthesiologist certifies that he or she has personally reviewed and interpreted the echocardiogram and has reviewed and or edited and agrees with the written comments contained within the report. Fernando Chow MD PhD ANESTHESIA ORDERAB LES Edited Result - Final * Central Venous Line (12/04/2024 9:18 AM ARMATURE VARNISHER) Narrative Spencer Irvin MD - 12/04/2024 9:18 AM ARMATURE VARNISHER Spencer Irvin MD 12/04/2024 9:21 AM Central Venous Line Patient location: OR Indication: central venous access and CVP monitoring Staff: Supervising provider: Fernando Chow MD PhD Placed by: Resident: Spencer Irvin MD Procedure prep: Patient position: Trendelenburg. PPE: provider hand hygiene, provider hat/mask, sterile gloves, sterile gown, full body drape, sterile gel and sterile probe covers. Prep solution: chlorhexadine/alcohol was applied to area. Ultrasound Evaluation: Ultrasound was prepped into field. Ultrasound image(s) saved to archive. Prior to the procedure, the cannulated vein was evaluated by ultrasound and deemed suitably patent for access.This vessel was accessed using real-time ultrasound guidance and an image was placed in the patient's medical record Central line: Laterality: right Site: internal jugular An individually distinct skin insertion site is being utilized for placement of the catheter. Catheter type: introducer sheath Catheter size: 9 Fr. Catheter length: 15 cm Catheter length at skin: 15 cm Technique: Seldinger technique, anatomy identified with ultrasound, wire removed intact and wire threaded easily Venous verification: manometry and ultrasound confirmation Post insertion: all ports aspirated, all ports flushed easily, line sutured in place and occlusive dressing applied Chlorhexidine patch applied: yes Number of attempts: 1 Assessment: Events: patient tolerated procedure well with no complications Fernando Chow MD PhD ANESTHESIA ORDERAB LES Final Result * Central Venous Line (12/04/2024 9:17 AM ARMATURE VARNISHER) Narrative Spencer Irvin MD - 12/04/2024 9:17 AM ARMATURE VARNISHER Spencer Irvin MD 12/04/2024 9:18 AM Central Venous Line Patient location: OR Indication: central venous access and CVP monitoring Staff: Supervising provider: Fernando Chow MD PhD Placed by: Resident: Spencer Irvin MD Procedure prep: Patient position: Trendelenburg. PPE: provider hand hygiene, provider hat/mask, sterile gloves, sterile gown, full body drape, sterile probe covers and sterile gel. Prep solution: chlorhexadine/alcohol was applied to area. Ultrasound Evaluation: Ultrasound was prepped into field and used prior to prep. Ultrasound image(s) saved to archive. Prior to the procedure, the cannulated vein was evaluated by ultrasound and deemed suitably patent for access.This vessel was accessed using real-time ultrasound guidance and an image was placed in the patient's medical record Central line: Laterality: right Site: internal jugular An individually distinct skin insertion site is being utilized for placement of the catheter. Catheter type: quad lumen Catheter size: 8.5 Fr. Catheter length: 16 cm Catheter length at skin: 16 cm Technique: anatomy identified with ultrasound, Seldinger technique, wire threaded easily and wire removed intact Venous verification: manometry and ultrasound confirmation Post insertion: all ports aspirated, all ports flushed easily, line sutured in place and occlusive dressing applied Chlorhexidine patch applied: yes Number of attempts: 1 Assessment: Events: patient tolerated procedure well with no complications Fernando Chow MD PhD ANESTHESIA ORDERAB LES Edited Result - Final * Arterial Line (12/04/2024 9:17 AM ARMATURE VARNISHER) Narrative Spencer Irvin MD - 12/04/2024 9:17 AM ARMATURE VARNISHER Spencer Irvin MD 12/04/2024 9:17 AM Arterial Line Patient location: pre-op holding Indication: continuous blood pressure monitoring and blood sampling needed Ultrasound assisted: yes Staff: Supervising provider: Fernando Chow MD PhD Placed by: Resident: Spencer Irvin MD Procedure prep: Prep solution: chlorhexadine/alcohol Prep: provider hat/mask, sterile gloves, sterile probe cover and sterile drape Skin infiltrated with lidocaine 1%: yes Arterial line: Catheter size: 20 gauge Catheter length: 1 and 1/4 inch Catheter type: wire-guided catheter Seldinger technique: yes Laterality: right Site: radial artery Line secured: tape and Tegaderm Results: good waveform and good blood return Number of attempts: 1 Assessment: Events: patient tolerated procedure well with no complications Additional comments: Ultrasound guidance used Fernando hCow MD PhD ANESTHESIA ORDERAB LES Final Result * Airway (12/04/2024 9:16 AM ARMATURE VARNISHER) Narrative Spencer Irvin MD - 12/04/2024 9:16 AM ARMATURE VARNISHER Spencer Irvin MD 12/04/2024 9:17 AM Airway Patient location: OR Urgency: elective Indications for airway management: anesthesia Difficult airway: no Staff: Supervising provider: Fernando Chow MD PhD Placed by: Resident: Spencer Irvin MD Emergent airway documentation: Risks and benefits discussed: yes Consent obtained: yes Consent given by: patient Airway prep: Preoxygenated: yes Patient position: sniffing Mask difficulty assessment: 1 - vent by mask Sedation level during airway: GA Final airway details: Final airway type: endotracheal airway Tube type: ETT ETT size: 7.5 mm Cuffed: yes Technique used for successful ETT placement: video laryngoscopy Devices/Methods used in placement: stylet Insertion site: oral Blade type: Ortega Video blade type: Oconnor Blade size: 3 Cormack-Lehane (video): grade I - full view of glottis Initial cuff pressure: 25 cm H2O Cuff inflated with: air ETT to teeth: 22 cm Placement verified by: auscultation and CO2 detection Airway secured with: silk tape Number of attempts: 1 Planned trial extubation: yes Fernando Chow MD PhD ANESTHESIA ORDERAB LES Final Result * POCT heparin dose response, CPB (12/04/2024 9:13 AM ARMATURE VARNISHER) Baseline ACT POC 143 112 - 174 sec Heparin dose response slope POC 114 60 - 195 [facility] Projected Heparin Concentration POC 3.0 units/mL [facility] Blood 12/04/2024 9:13 AM ARMATURE VARNISHER 12/04/2024 9:13 AM ARMATURE VARNISHER Vj Oreilly MD LAB POCT ORDERABLES - DEV ICE Final Result [facility] Department [place] [address] * (ABNORMAL) POC Blood Gas and Chemistries, Arterial - (12/04/2024 9:08 AM ARMATURE VARNISHER) pH, Art POC 7.54(H) 7.35 - 7.45 pCO2, Art POC 34(L) 35 - 45 mmHg [facility] pO2, Art POC 249(H) 83 - 108 mmHg [facility] Na, POC 134(L) 135 - 145 mmol/L [facility] K POC 3.3 3.3 - 4.9 mmol/L [facility] Comment: Interpretive Data Not all point of care methods assess for hemolysis. Confirm with instrument and retest K+ if not consistent with clinical signs and symptoms. Current Interpretive Data was last revised on 2024. Cl, POC 101 97 - 110 mmol/L [facility] Ionized Ca, POC 4.61 4.50 - 5.10 mg/dL [facility] Glucose, POC 135 70 - 199 mg/dL [facility] Lactate, POC 1.6 0.7 - 2.0 mmol/L [facility] SO2 (yousuf) arterial 100(H) 90 - 95 % [facility] Base excess, POC 6.3 mmol/L [facility] HCO3, Art POC 29 20 - 30 mmol/L [facility] Hct, POC 26.0(L) 36.3 - 45.3 % [facility] Total Hb, POC 8.8(L) 11.9 - 15.5 g/dL [facility] Blood 12/04/2024 9:08 AM ARMATURE VARNISHER 12/04/2024 9:08 AM ARMATURE VARNISHER us Vj Oreilly MD LAB POCT ORDERABLES - DEV ICE Final Result [facility] Department [place] [address] * KALEN Add-On For OR (12/04/2024 7:59 AM ARMATURE VARNISHER) BSA 1.62 m2 [facility] PROSOLV_CARDIORE PORT_CONS SCIMAGE Narrative [facility] PROSOLV_CARDIOREPORT_CONS SCIMAGE - 12/04/2024 7:59 AM ARMATURE VARNISHER Procedure Auto Finalized by Rule: BW CV KALEN DURING CASE OR Please see the Anesthesiologist's Procedure Note for the results. us Fernando Chow MD PhD CV ECHO PROCEDURES Final Result Performing Organization Address City/[facility]/ZIP Co de Phone Number [facility] PROSOLV_CARDIOREPORT_CONS SCIMAGE * (ABNORMAL) POC Blood Gas and Chemistries, Arterial - (12/04/2024 6:24 AM ARMATURE VARNISHER) Na, POC 135 135 - 145 mmol/L K POC 3.9 3.3 - 4.9 mmol/L [facility] Comment: Interpretive Data Not all point of care methods assess for hemolysis. Confirm with instrument and retest K+ if not consistent with clinical signs and symptoms. Current Interpretive Data was last revised on 2024. Glucose, POC 99 70 - 199 mg/dL [facility] Hct, POC 32.0(L) 36.3 - 45.3 % [facility] Total Hb, POC 10.6(L) 11.9 - 15.5 g/dL [facility] Blood 12/04/2024 6:24 AM ARMATURE VARNISHER 12/04/2024 6:24 AM ARMATURE VARNISHER Vj Oreilly MD LAB POCT ORDERABLES - DEV ICE Final Result Performing Organization Address [facility] Co de Phone Number [facility] Department [place] [address] * Prepare RBC: 4 Units (12/04/2024 5:52 AM ARMATURE VARNISHER) Product code [id number] [facility] Unit Number [id number] [facility] Product Blood Type BNEG [facility] Dispense Status RETURNED [facility] Product code [id number] [facility] Unit Number [id number] [facility] Product Blood Type BNEG [facility] Dispense Status RETURNED [facility] Product code [id number] Unit Number [id number] [facility] Product Blood Type BNEG [facility] Dispense Status PRESUMED TRANSFUSED [facility] Product code [id number] [facility] Unit Number [id number] [facility] Product Blood Type BNEG [facility] Dispense Status PRESUMED TRANSFUSED [facility] Blood 12/04/2024 5:52 AM ARMATURE VARNISHER 12/04/2024 5:51 AM ARMATURE VARNISHER Narrative [facility] - 12/04/2024 9:00 PM ARMATURE VARNISHER Specify Procedure:->MVR Are special requirements needed? (All products are leukoreduced and CMV- safe)- >No Date required:-[id number] LRRBC # of [id number] Reasons:-Hold for procedure (specify procedure)} Carmita Castellanos NP BLOOD BANK PRODUCT ORDERAB LES Final Result [facility] Department [place] [address] * (ABNORMAL) eGFR (12/03/2024 10:17 PM ARMATURE VARNISHER) eGFR 23(L) >=60 mL/min/1. 73 m2 Comment: Interpretive Data Reference Interval Normal >/= 90 mL/min/1.73m2 Mildly decreased* 60 - 89 mL/min/1.73m2 Mildly to moderately decreased 45 - 59 mL/min/1.73m2 Moderately to severely decreased 30 - 44 mL/min/1.73m2 Severely decreased 15 - 29 mL/min/1.73m2 Kidney Failure < 15 mL/min/1.73m2 *Relative to young adult level Estimated glomerular filtration rate is determined by the 2020 CKD-EPI equation recommended by the National Kidney Foundation (A Unifying Approach to GFR Estimation: Recommendations of the NKF-ASK Task Force on Reassessing the Inclusion of Race in Diagnosing Kidney Disease, JASN 2020). The CKD-EPI equation should not be used for patients with unstable renal function and has not been validated in children and those over 70. Current interpretive data was last reviewed 2021. Blood 12/03/2024 10:1 7 PM ARMATURE VARNISHER 12/03/2024 11:26 PM ARMATURE VARNISHER Tito García SPOOLING OPERATOR LAB BLOOD ORDERABLES Final Result [facility] [place] [address] * (ABNORMAL) CBC without differential (12/03/2024 10:17 PM ARMATURE VARNISHER) Pathologist [facility] WBC 5.1 3.8 - 9.9 K/cumm Hgb 10.0(L) 11.9 - 15.5 g/dL [facility] Hct 32.1(L) 35.6 - 45.5 % [facility] Plt 169 150 - 400 K/cumm [facility] MPV 10.0 9.1 - 12.3 fL [facility] RBC 3.48(L) 3.90 - 5.20 M/cumm [facility] MCV 92.2 81.3 - 96.4 fL [facility] MCH 28.7 27.1 - 33.3 pg [facility] MCHC 31.2(L) 32.3 - 35.7 g/dL [facility] RDW CV 16.8(H) 11.1 - 14.9 % [facility] RDW SD 56.7(H) 35.7 - 48.1 fL [facility] NRBC abs 0.00 0.00 - 0.01 K/cumm [facility] Blood 12/03/2024 10:1 7 PM ARMATURE VARNISHER 12/03/2024 11:28 PM ARMATURE VARNISHER us Tito García SPOOLING OPERATOR LAB BLOOD ORDERABLES Final Result [facility] [place] [address] * (ABNORMAL) Phosphorus (12/03/2024 10:17 PM ARMATURE VARNISHER) Phosphorus, pl 1.4(L) 2.3 - 4.5 mg/dL Blood 12/03/2024 10:1 7 PM ARMATURE VARNISHER 12/03/2024 11:26 PM ARMATURE VARNISHER Tito Mccarthy Ricky SPOOLING OPERATOR LAB BLOOD ORDERABLES Final Result Performing Organization Address City/State/[facility] Co de Phone Number [facility] Department [place] [address] * Magnesium (12/03/2024 10:17 PM ARMATURE VARNISHER) [facility] Magnesium 2.1 1.4 - 2.5 mg/dL Blood 12/03/2024 10:1 7 PM ARMATURE VARNISHER 12/03/2024 11:26 PM ARMATURE VARNISHER Tito Youngoz SPOOLING OPERATOR LAB BLOOD ORDERABLES Final Result Performing Organization Address [facility] de Phone Number [facility] [place] [address] * (ABNORMAL) Basic metabolic panel (12/03/2024 10:17 PM ARMATURE VARNISHER) [facility] Sodium 133(L) 135 - 145 mmol/L Potassium, pl 3.8 3.3 - 4.9 mmol/L [facility] Chloride 96(L) 97 - 110 mmol/L [facility] CO2 30 22 - 32 mmol/L [facility] Anion gap 7 2 - 15 mmol/L [facility] BUN 7 6 - 25 mg/dL [facility] Creatinine 2.45(H) 0.60 - 1.10 mg/dL [facility] Glucose 117 70 - 199 mg/dL [facility] Comment: Interpretive Data Fasting glucose >/= 126 mg/dl is diagnostic for diabetes. Fasting is defined as no caloric intake for at least 8 hours. Fasting glucose between 100 mg/dl to 125 mg/dl is diagnostic of prediabetes. In a patient with classic symptoms of hyperglycemia or hyperglycemic crisis, a random glucose >/= 200 mg/dl is diagnostic for diabetes. In the absence of unequivocal hyperglycemia, results should be confirmed by repeat testing. The classification and Diagnosis of Diabetes Diabetes Care 2021; 46: S19-S40. Current interpretive data was last revised 2022. Calcium 8.4(L) 8.5 - 10.3 mg/dL [facility] Blood 12/03/2024 10:1 7 PM ARMATURE VARNISHER 12/03/2024 11:26 PM ARMATURE VARNISHER Tito García SPOOLING OPERATOR LAB BLOOD ORDERABLES Final Result [facility] Department [place] [address] * (ABNORMAL) Urinalysis reflex to microscopic and culture Urine, clean voided (12/03/2024 9:17 PM ARMATURE VARNISHER) Color, ur Straw Yellow Clarity, ur Clear Clear [facility] Specific gravity, ur 1.008 1.003 - 1.030 [facility] pH, urine 8.5 [facility] Comment: Interpretive Data U rine pH is affected by diet, medications, systemic acid-base disturbances, and renal tubular function. pH may affect urinary stone formation. For example, urine pH below 6.0 may help reduce the tendency for calcium phosphate stones and pH greater than 6.0 may reduce the tendency for uric acid stone formation. Source: [facility] Current Interpretive Data was last revised on 2017 Protein, ur ql 1+(A) Negative [facility] Glucose, ur ql Negative Negative [facility] Ketones, ur Negative Negative [facility] Bilirubin, ur Negative Negative [facility] Blood, ur Negative Negative [facility] Urobilinogen, ur <2.0 <2.0 mg/dL [facility] Nitrite, ur Negative Negative [facility] Leukocyte esterase, ur Negative Negative [facility] UA reflex comment Reflex to microscopic UA will be performed. [facility] Urine, clean voided 12/03/2024 9:17 PM ARMATURE VARNISHER 12/03/2024 10:27 PM ARMATURE VARNISHER Narrative [facility] - 12/03/2024 10:35 PM ARMATURE VARNISHER Please send eva, she is preop for OR tomorow us Sia H. Orr SPOOLING OPERATOR LAB MICROBIOLOGY - GENERAL ORDER CHERI Final Result Performing Organization Address City/[facility] Co de Phone Number [facility] [place] [address] * (ABNORMAL) Urinalysis, microscopic only (12/03/2024 9:17 PM ARMATURE VARNISHER) WBC, ur 0-5 0 - 5 /HPF RBC, ur 0-2 0 - 2 /HPF [facility] Epithelial cells, squamous, ur 1-5 0 - 5 /HPF [facility] Mucous, ur Present(A) [facility] Culture Reflex Comment Reflex conditions for urine culture (WBC >10) not met. [facility] Urine, clean voided 12/03/2024 9:17 PM ARMATURE VARNISHER 12/03/2024 10:27 PM ARMATURE VARNISHER Sia rOr NP LAB URINE ORDERABLES Final Resul t Performing Organization Address [facility] Co de Phone Number [facility] Department [place] [address] * (ABNORMAL) eGFR (12/02/2024 9:40 PM ARMATURE VARNISHER) eGFR 18(L) >=60 mL/min/1. 73 m2 Comment: Interpretive Data Reference Interval Normal >/= 90 mL/min/1.73m2 Mildly decreased* 60 - 89 mL/min/1.73m2 Mildly to moderately decreased 45 - 59 mL/min/1.73m2 Moderately to severely decreased 30 - 44 mL/min/1.73m2 Severely decreased 15 - 29 mL/min/1.73m2 Kidney Failure < 15 mL/min/1.73m2 *Relative to young adult level Estimated glomerular filtration rate is determined by the 2020 CKD-EPI equation recommended by the National Kidney Foundation (A Unifying Approach to GFR Estimation: Recommendations of the NKF-ASK Task Force on Reassessing the Inclusion of Race in Diagnosing Kidney Disease, JASN 202). The CKD-EPI equation should not be used for patients with unstable renal function and has not been validated in children and those over 70. Current interpretive data was last reviewed 2021. Blood 12/02/2024 9:40 PM ARMATURE VARNISHER 12/02/2024 10:47 PM ARMATURE VARNISHER Tito García NP LAB BLOOD ORDERABLES Final Result Performing Organization Address City/[facility]/ZIP Co de Phone Number [facility] [place] [address] * (ABNORMAL) CBC without differential (12/02/2024 9:40 PM ARMATURE VARNISHER) Pathologist [facility] WBC 5.7 3.8 - 9.9 K/cumm Hgb 9.9(L) 11.9 - 15.5 g/dL [facility] Hct 31.3(L) 35.6 - 45.5 % [facility] Plt 191 150 - 400 K/cumm [facility] MPV 10.3 9.1 - 12.3 fL [facility] RBC 3.44(L) 3.90 - 5.20 M/cumm [facility] MCV 91.0 81.3 - 96.4 fL [facility] MCH 28.8 27.1 - 33.3 pg [facility] MCHC 31.6(L) 32.3 - 35.7 g/dL [facility] RDW CV 17.0(H) 11.1 - 14.9 % [facility] RDW SD 56.8(H) 35.7 - 48.1 fL [facility] NRBC abs 0.00 0.00 - 0.01 K/cumm [facility] Blood 12/02/2024 9:40 PM ARMATURE VARNISHER 12/02/2024 10:51 PM ARMATURE VARNISHER Tito García NP LAB BLOOD ORDERABLES Final Result Performing Organization Address City/[facility]/ZIP Co de Phone Number [facility] Department [place] [address] * Type and screen (12/02/2024 9:40 PM ARMATURE VARNISHER) Pathologist [facility] ABO Rh B Positive Radha, indirect Negative [facility] Blood 12/02/2024 9:40 PM ARMATURE VARNISHER 12/02/2024 11:06 PM ARMATURE VARNISHER Narrative [facility] - 12/03/2024 12:22 AM ARMATURE VARNISHER Has the patient had Daratumumab or Isatuximab in the past 6 months?->Unknown Tito García NP LAB BLOOD BANK TEST ORDERA BLES Final Result [facility] Department [place] [address] * (ABNORMAL) Phosphorus (12/02/2024 9:40 PM ARMATURE VARNISHER) [facility] Phosphorus, pl 1.7(L) 2.3 - 4.5 mg/dL Blood 12/02/2024 9:40 PM ARMATURE VARNISHER 12/02/2024 10:47 PM ARMATURE VARNISHER Tito García NP LAB BLOOD ORDERABLES Final Result Performing Organization Address City/[facility]/ZIP Co de Phone Number [facility] Department [place] [address] * Magnesium (12/02/2024 9:40 PM ARMATURE VARNISHER) [facility] Magnesium 2.3 1.4 - 2.5 mg/dL Blood 12/02/2024 9:40 PM ARMATURE VARNISHER 12/02/2024 10:47 PM ARMATURE VARNISHER Tito García NP LAB BLOOD ORDERABLES Final Result Performing Organization Address City/[facility]/ZIP Co de Phone Number [facility] Department [place] [address] * (ABNORMAL) Creatine kinase (CK), total (12/02/2024 9:40 PM ARMATURE VARNISHER) [facility] CK 21(L) 30 - 200 Units/L Blood 12/02/2024 9:40 PM ARMATURE VARNISHER 12/02/2024 10:47 PM ARMATURE VARNISHER us Ana María Vaca SPOOLING OPERATOR LAB BLOOD ORDERABLES Final Result [facility] Department [place] [address] * (ABNORMAL) Basic metabolic panel (12/02/2024 9:40 PM ARMATURE VARNISHER) Pathologist [facility] Sodium 134(L) 135 - 145 mmol/L Potassium, pl 4.4 3.3 - 4.9 mmol/L [facility] Chloride 97 97 - 110 mmol/L [facility] CO2 29 22 - 32 mmol/L [facility] Anion gap 8 2 - 15 mmol/L [facility] BUN 9 6 - 25 mg/dL [facility] Creatinine 2.96(H) 0.60 - 1.10 mg/dL [facility] Glucose 135 70 - 199 mg/dL [facility] Comment: Interpretive Data Fasting glucose >/= 126 mg/dl is diagnostic for diabetes. Fasting is defined as no caloric intake for at least 8 hours. Fasting glucose between 100 mg/dl to 125 mg/dl is diagnostic of prediabetes. In a patient with classic symptoms of hyperglycemia or hyperglycemic crisis, a random glucose >/= 200 mg/dl is diagnostic for diabetes. In the absence of unequivocal hyperglycemia, results should be confirmed by repeat testing. The classification and Diagnosis of Diabetes Diabetes Care 2021; 46: S19-S40. Current interpretive data was last revised 2022. Calcium 8.5 8.5 - 10.3 mg/dL [facility] Blood 12/02/2024 9:40 PM ARMATURE VARNISHER 12/02/2024 10:47 PM ARMATURE VARNISHER us Tito García SPOOLING OPERATOR LAB BLOOD ORDERABLES Final Result Performing Organization Address [facility]/ZIP Co de Phone Number [facility] Department [place] [address] * LEFT HEART CATHETERIZATION (LHC) (12/02/2024 1:58 PM ARMATURE VARNISHER) Anatomical Region Laterality Modality X-Ray Angiograph y Impressions 12/02/2024 2:08 PM ARMATURE VARNISHER No angiographically significant coronary artery disease Normal left ventricular end diastolic blood pressure. THERAPEUTIC RECOMMENDATIONS: No need for coronary revascularization at the time of valve surgery Narrative 12/02/2024 2:08 PM ARMATURE VARNISHER Images from the original result were not included. Cardiovascular Procedure Center [facility] [address], [address] [place] [id number] DIAGNOSTIC CATHETERIZATION REPORT Patient: Quin Miller : 1970 MR number: [id number] Date of Service: 12/02/2024 Community Health Navigator: Jeramie José MD INDICATION: CHF/Dyspnea NYHA Class 2-3 PATIENT CLINICAL PROFILE: Quin Miller is a 54 y.o. female with a history of ESRD w failed kidney transplant now on HD via LUE AVF. 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 She is planned for surgical repair. PROCEDURE: The risks, benefits and alternatives of the procedures and moderate sedation were explained to the patient and informed consent was obtained. The patient was brought to the cardiovascular lab director and placed on the table. The RIGHT radial artery site was infiltrated with 1% lidocaine. The vessel was accessed using ultrasound guidance. Using the modified Seldinger technique, a wire was threaded into the vessel, and a 6 Fr Sheath was advanced over the wire into the vessel. Left coronary artery angiogram was performed using a 5 Fr JL3.5 catheter. Right coronary artery angiogram was performed using a 5 Fr JR4 catheter. Left ventricular hemodynamics were measured using jr4 catheter, no left ventriculogram was done. I provided direct [id number] moderate conscious sedation which administered by independent trained nurse using fentanyl and Versed for 30 minutes At the end of the procedure, the radial artery sheath was removed with TR band for hemostasis. Patient was transferred to the holding area in stable condition. RESULTS: Hemodynamics: Left ventricular blood pressure was 140/6. There was no gradient on pull back across the aortic valve Coronary Arteriography: Left main coronary: normal Left anterior descending: Minimal ostial disease, otherwise normal Left circumflex: normal Right coronary artery: Right dominant system. normal COMPLICATIONS: None. DIAGNOSTIC us Ana María Vaca NP CV CARDIAC CATH PROCEDURES Final Result * Blood culture Blood (12/02/2024 8:36 AM ARMATURE VARNISHER) Report Final Report: No growth Blood 12/02/2024 8:36 AM ARMATURE VARNISHER 12/02/2024 9:34 AM ARMATURE VARNISHER Narrative [facility] - 12/06/2024 12:00 PM ARMATURE VARNISHER Collection->Peripheral 1. Blood cultures are incubated for 4 days on a continuously monitored blood culture system. The first report of a negative culture is issued within 24 hours of receipt of the specimen in the laboratory. 2. Positive culture results are reported as soon as they are detected. 3. The most important factor for detection of microbes in the setting of bloodstream infection is the volume of blood submitted for culture. Failure to collect an optimal blood volume can result in false negative blood cultures. 4. For pediatric patients, the recommended blood volume to collect follows a weight based strategy. See the electronic test catalog for collection instructions. 5. For positive blood cultures, a rapid molecular test may be performed for organism identification using the dawson ePlex blood culture identification panel for gram positive (BCID-GP) and gram negative (BCID-GN) organisms. This nucleic acid amplification test detects microbial DNA in positive blood culture broth. This assay has been cleared by the [place] Food and Drug Administration and its performance characteristics have been verified by the [facility] Microbiology Laboratory. For questions about this culture, contact the Microbiology Laboratory at [phone]. Interpretive data was last revised on 24. us Ana María Vaca NP LAB MICROBIOLOGY - GENERAL ORDERABLES Final Result [facility] Department [place] [address] * Infection Prevention Leidy auris PCR, surveillance Axilla/Groin (12/01/2024 10:28 PM ARMATURE VARNISHER) Leidy auris DNA Not Detected Not Detected [facility] Comment: Interpretive Data Testing performed by [facility] Molecular Infectious Disease Laboratory using the Jannie dawson 6800 Leidy auris assay. This assay detects DNA from Leidy auris using Real-Time PCR. This assay is laboratory developed and is not cleared by the [place] Food and Drug Administration. The performance characteristics have been verified by the [facility] Molecular Infectious Disease Laboratory. Axilla/Groin 12/01/2024 10:2 8 PM ARMATURE VARNISHER 12/01/2024 10:47 PM ARMATURE VARNISHER us Paco [place] MD LAB MICROBIOLOGY - GENERAL ORDER CHERI Final Result [facility] Department [place] [address] [facility] * (ABNORMAL) eGFR (12/01/2024 10:28 PM ARMATURE VARNISHER) eGFR 9(L) >=60 mL/min/1. 73 m2 Comment: Interpretive Data Reference Interval Normal >/= 90 mL/min/1.73m2 Mildly decreased* 60 - 89 mL/min/1.73m2 Mildly to moderately decreased 45 - 59 mL/min/1.73m2 Moderately to severely decreased 30 - 44 mL/min/1.73m2 Severely decreased 15 - 29 mL/min/1.73m2 Kidney Failure < 15 mL/min/1.73m2 *Relative to young adult level Estimated glomerular filtration rate is determined by the 2020 CKD-EPI equation recommended by the National Kidney Foundation (A Unifying Approach to GFR Estimation: Recommendations of the NKF-ASK Task Force on Reassessing the Inclusion of Race in Diagnosing Kidney Disease, JASN 202). The CKD-EPI equation should not be used for patients with unstable renal function and has not been validated in children and those over 70. Current interpretive data was last reviewed 2021. Blood 12/01/2024 10:2 8 PM ARMATURE VARNISHER 12/01/2024 10:54 PM ARMATURE VARNISHER Tito García SPOOLING OPERATOR LAB BLOOD ORDERABLES Final Result Performing Organization Address City/[facility]/ZIP Co de Phone Number [facility] Department [place] [address] * (ABNORMAL) CBC without differential (12/01/2024 10:28 PM ARMATURE VARNISHER) Pathologist [facility] WBC 5.4 3.8 - 9.9 K/cumm Hgb 9.0(L) 11.9 - 15.5 g/dL [facility] Hct 28.2(L) 35.6 - 45.5 % [facility] Plt 162 150 - 400 K/cumm [facility] MPV 10.0 9.1 - 12.3 fL [facility] RBC 3.14(L) 3.90 - 5.20 M/cumm [facility] MCV 89.8 81.3 - 96.4 fL [facility] MCH 28.7 27.1 - 33.3 pg [facility] MCHC 31.9(L) 32.3 - 35.7 g/dL [facility] RDW CV 16.8(H) 11.1 - 14.9 % [facility] RDW SD 54.9(H) 35.7 - 48.1 fL [facility] NRBC abs 0.00 0.00 - 0.01 K/cumm [facility] Blood 12/01/2024 10:2 8 PM ARMATURE VARNISHER 12/01/2024 10:55 PM ARMATURE VARNISHER Tito García SPOOLING OPERATOR LAB BLOOD ORDERABLES Final Result [facility] [place] [address] * (ABNORMAL) Phosphorus (12/01/2024 10:28 PM ARMATURE VARNISHER) Phosphorus, pl 1.6(L) 2.3 - 4.5 mg/dL Blood 12/01/2024 10:2 8 PM ARMATURE VARNISHER 12/01/2024 10:54 PM ARMATURE VARNISHER Tito García SPOOLING OPERATOR LAB BLOOD ORDERABLES Final Result [facility] [place] [address] * Magnesium (12/01/2024 10:28 PM ARMATURE VARNISHER) [facility] Magnesium 2.5 1.4 - 2.5 mg/dL Blood 12/01/2024 10:2 8 PM ARMATURE VARNISHER 12/01/2024 10:54 PM ARMATURE VARNISHER Tito Mccarthy García SPOOLING OPERATOR LAB BLOOD ORDERABLES Final Result Performing Organization Address [facility] de Phone Number [facility] [place] [address] * (ABNORMAL) Basic metabolic panel (12/01/2024 10:28 PM ARMATURE VARNISHER) [facility] Sodium 133(L) 135 - 145 mmol/L Potassium, pl 4.9 3.3 - 4.9 mmol/L [facility] Chloride 99 97 - 110 mmol/L [facility] CO2 29 22 - 32 mmol/L [facility] Anion gap 5 2 - 15 mmol/L [facility] BUN 25 6 - 25 mg/dL [facility] Creatinine 5.25(H) 0.60 - 1.10 mg/dL [facility] Glucose 100 70 - 199 mg/dL [facility] Comment: Interpretive Data Fasting glucose >/= 126 mg/dl is diagnostic for diabetes. Fasting is defined as no caloric intake for at least 8 hours. Fasting glucose between 100 mg/dl to 125 mg/dl is diagnostic of prediabetes. In a patient with classic symptoms of hyperglycemia or hyperglycemic crisis, a random glucose >/= 200 mg/dl is diagnostic for diabetes. In the absence of unequivocal hyperglycemia, results should be confirmed by repeat testing. The classification and Diagnosis of Diabetes Diabetes Care 2021; 46: S19-S40. Current interpretive data was last revised 2022. Calcium 8.1(L) 8.5 - 10.3 mg/dL [facility] Blood 12/01/2024 10:2 8 PM ARMATURE VARNISHER 12/01/2024 10:54 PM ARMATURE VARNISHER Tito García SPOOLING OPERATOR LAB BLOOD ORDERABLES Final Result Performing Organization Address City/[facility]/ZIP Co de Phone Number [facility] Department [place] [address] * (ABNORMAL) eGFR (11/30/2024 10:05 PM ARMATURE VARNISHER) eGFR 12(L) >=60 mL/min/1. 73 m2 Comment: Interpretive Data Reference Interval Normal >/= 90 mL/min/1.73m2 Mildly decreased* 60 - 89 mL/min/1.73m2 Mildly to moderately decreased 45 - 59 mL/min/1.73m2 Moderately to severely decreased 30 - 44 mL/min/1.73m2 Severely decreased 15 - 29 mL/min/1.73m2 Kidney Failure < 15 mL/min/1.73m2 *Relative to young adult level Estimated glomerular filtration rate is determined by the 2020 CKD-EPI equation recommended by the National Kidney Foundation (A Unifying Approach to GFR Estimation: Recommendations of the NKF-ASK Task Force on Reassessing the Inclusion of Race in Diagnosing Kidney Disease, JASN 2020). The CKD-EPI equation should not be used for patients with unstable renal function and has not been validated in children and those over 70. Current interpretive data was last reviewed 2021. Blood 11/30/2024 10:0 5 PM ARMATURE VARNISHER 11/30/2024 10:37 PM ARMATURE VARNISHER Tito García NP LAB BLOOD ORDERABLES Final Result Performing Organization Address City/[facility]/ZIP Co de Phone Number [facility] Department [place] [address] * (ABNORMAL) CBC without differential (11/30/2024 10:05 PM ARMATURE VARNISHER) WBC 5.1 3.8 - 9.9 K/cumm Hgb 9.2(L) 11.9 - 15.5 g/dL [facility] Hct 29.5(L) 35.6 - 45.5 % [facility] Plt 161 150 - 400 K/cumm [facility] MPV 10.3 9.1 - 12.3 fL [facility] RBC 3.24(L) 3.90 - 5.20 M/cumm [facility] MCV 91.0 81.3 - 96.4 fL [facility] MCH 28.4 27.1 - 33.3 pg [facility] MCHC 31.2(L) 32.3 - 35.7 g/dL [facility] RDW CV 16.7(H) 11.1 - 14.9 % [facility] RDW SD 56.3(H) 35.7 - 48.1 fL [facility] NRBC abs 0.00 0.00 - 0.01 K/cumm [facility] Blood 11/30/2024 10:0 5 PM ARMATURE VARNISHER 11/30/2024 10:39 PM ARMATURE VARNISHER us Tito Garcaí SPOOLING OPERATOR LAB BLOOD ORDERABLES Final Result [facility] Department [place] [employer] [place] [address] * (ABNORMAL) Phosphorus (11/30/2024 10:05 PM ARMATURE VARNISHER) [facility] Phosphorus, pl 1.3(L) 2.3 - 4.5 mg/dL Blood 11/30/2024 10:0 5 PM ARMATURE VARNISHER 11/30/2024 10:37 PM ARMATURE VARNISHER Tito García NP LAB BLOOD ORDERABLES Final Result [facility] [place] [address] * Magnesium (11/30/2024 10:05 PM ARMATURE VARNISHER) Pathologist [facility] Magnesium 2.5 1.4 - 2.5 mg/dL Blood 11/30/2024 10:0 5 PM ARMATURE VARNISHER 11/30/2024 10:37 PM ARMATURE VARNISHER Tito García SPOOLING OPERATOR LAB BLOOD ORDERABLES Final Result [facility] Department [place] [address] * (ABNORMAL) Basic metabolic panel (11/30/2024 10:05 PM ARMATURE VARNISHER) [facility] Sodium 133(L) 135 - 145 mmol/L Potassium, pl 4.5 3.3 - 4.9 mmol/L [facility] Chloride 98 97 - 110 mmol/L [facility] CO2 30 22 - 32 mmol/L [facility] Anion gap 5 2 - 15 mmol/L [facility] BUN 21 6 - 25 mg/dL [facility] Creatinine 4.12(H) 0.60 - 1.10 mg/dL [facility] Glucose 117 70 - 199 mg/dL [facility] Comment: Interpretive Data Fasting glucose >/= 126 mg/dl is diagnostic for diabetes. Fasting is defined as no caloric intake for at least 8 hours. Fasting glucose between 100 mg/dl to 125 mg/dl is diagnostic of prediabetes. In a patient with classic symptoms of hyperglycemia or hyperglycemic crisis, a random glucose >/= 200 mg/dl is diagnostic for diabetes. In the absence of unequivocal hyperglycemia, results should be confirmed by repeat testing. The classification and Diagnosis of Diabetes Diabetes Care 2021; 46: S19-S40. Current interpretive data was last revised 2022. Calcium 8.3(L) 8.5 - 10.3 mg/dL [facility] Blood 11/30/2024 10:0 5 PM ARMATURE VARNISHER 11/30/2024 10:37 PM ARMATURE VARNISHER Tito García SPOOLING OPERATOR LAB BLOOD ORDERABLES Final Result Performing Organization Address City/[facility]/ZIP Co de Phone Number [facility] Department [place] [address] * (ABNORMAL) eGFR (11/29/2024 10:10 PM ARMATURE VARNISHER) [facility] eGFR 23(L) >=60 mL/min/1. 73 m2 Comment: Interpretive Data Reference Interval Normal >/= 90 mL/min/1.73m2 Mildly decreased* 60 - 89 mL/min/1.73m2 Mildly to moderately decreased 45 - 59 mL/min/1.73m2 Moderately to severely decreased 30 - 44 mL/min/1.73m2 Severely decreased 15 - 29 mL/min/1.73m2 Kidney Failure < 15 mL/min/1.73m2 *Relative to young adult level Estimated glomerular filtration rate is determined by the 2020 CKD-EPI equation recommended by the National Kidney Foundation (A Unifying Approach to GFR Estimation: Recommendations of the NKF-ASK Task Force on Reassessing the Inclusion of Race in Diagnosing Kidney Disease, JASN 2020). The CKD-EPI equation should not be used for patients with unstable renal function and has not been validated in children and those over 70. Current interpretive data was last reviewed 2021. Blood 11/29/2024 10:1 0 PM ARMATURE VARNISHER 11/29/2024 10:59 PM ARMATURE VARNISHER Tito García NP LAB BLOOD ORDERABLES Final Result [facility] Department [place] [address] * (ABNORMAL) CBC without differential (11/29/2024 10:10 PM ARMATURE VARNISHER) [facility] WBC 4.6 3.8 - 9.9 K/cumm Hgb 9.0(L) 11.9 - 15.5 g/dL [facility] Hct 28.6(L) 35.6 - 45.5 % [facility] Plt 147(L) 150 - 400 K/cumm [facility] MPV 9.9 9.1 - 12.3 fL [facility] RBC 3.10(L) 3.90 - 5.20 M/cumm [facility] MCV 92.3 81.3 - 96.4 fL [facility] MCH 29.0 27.1 - 33.3 pg [facility] MCHC 31.5(L) 32.3 - 35.7 g/dL [facility] RDW CV 17.0(H) 11.1 - 14.9 % [facility] RDW SD 57.2(H) 35.7 - 48.1 fL [facility] NRBC abs 0.00 0.00 - 0.01 K/cumm [facility] Blood 11/29/2024 10:1 0 PM ARMATURE VARNISHER 11/29/2024 11:11 PM ARMATURE VARNISHER Tito García NP LAB BLOOD ORDERABLES Final Result Performing Organization Address City/[facility]/ZIP Co de Phone Number [facility] Department [place] [address] * Type and screen (11/29/2024 10:10 PM ARMATURE VARNISHER) Radha, indirect Negative ABO Rh B Positive [facility] Blood 11/29/2024 10:1 0 PM ARMATURE VARNISHER 11/29/2024 10:55 PM ARMATURE VARNISHER Narrative [facility] - 11/29/2024 11:58 PM ARMATURE VARNISHER Has the patient had Daratumumab or Isatuximab in the past 6 months?->Unknown Tito García NP LAB BLOOD BANK TEST ORDERA BLES Final Result [facility] Department [place] [address] * (ABNORMAL) Phosphorus (11/29/2024 10:10 PM ARMATURE VARNISHER) Phosphorus, pl 1.1(L) 2.3 - 4.5 mg/dL Blood 11/29/2024 10:1 0 PM ARMATURE VARNISHER 11/29/2024 10:59 PM ARMATURE VARNISHER Tito García SPOOLING OPERATOR LAB BLOOD ORDERABLES Final Result [facility] [place] [address] * Magnesium (11/29/2024 10:10 PM ARMATURE VARNISHER) [facility] Magnesium 2.3 1.4 - 2.5 mg/dL Blood 11/29/2024 10:1 0 PM ARMATURE VARNISHER 11/29/2024 10:59 PM ARMATURE VARNISHER Tito García LAB BLOOD ORDERABLES Final Result Performing Organization Address [facility] Co de Phone Number [facility] [place] [address] * (ABNORMAL) Basic metabolic panel (11/29/2024 10:10 PM ARMATURE VARNISHER) [facility] Sodium 131(L) 135 - 145 mmol/L Potassium, pl 3.9 3.3 - 4.9 mmol/L [facility] Chloride 95(L) 97 - 110 mmol/L [facility] CO2 33(H) 22 - 32 mmol/L [facility] Anion gap 3 2 - 15 mmol/L [facility] BUN 10 6 - 25 mg/dL [facility] Creatinine 2.43(H) 0.60 - 1.10 mg/dL [facility] Glucose 112 70 - 199 mg/dL [facility] Comment: Interpretive Data Fasting glucose >/= 126 mg/dl is diagnostic for diabetes. Fasting is defined as no caloric intake for at least 8 hours. Fasting glucose between 100 mg/dl to 125 mg/dl is diagnostic of prediabetes. In a patient with classic symptoms of hyperglycemia or hyperglycemic crisis, a random glucose >/= 200 mg/dl is diagnostic for diabetes. In the absence of unequivocal hyperglycemia, results should be confirmed by repeat testing. The classification and Diagnosis of Diabetes Diabetes Care 2021; 46: S19-S40. Current interpretive data was last revised 2022. Calcium 8.1(L) 8.5 - 10.3 mg/dL [facility] Blood 11/29/2024 10:1 0 PM ARMATURE VARNISHER 11/29/2024 10:59 PM ARMATURE VARNISHER Tito García SPOOLING OPERATOR LAB BLOOD ORDERABLES Final Result Performing Organization Address City/[facility] Co de Phone Number [facility] [place] [address] * (ABNORMAL) eGFR (11/28/2024 10:29 PM ARMATURE VARNISHER) eGFR 13(L) >=60 mL/min/1. 73 m2 Comment: Interpretive Data Reference Interval Normal >/= 90 mL/min/1.73m2 Mildly decreased* 60 - 89 mL/min/1.73m2 Mildly to moderately decreased 45 - 59 mL/min/1.73m2 Moderately to severely decreased 30 - 44 mL/min/1.73m2 Severely decreased 15 - 29 mL/min/1.73m2 Kidney Failure < 15 mL/min/1.73m2 *Relative to young adult level Estimated glomerular filtration rate is determined by the 2020 CKD-EPI equation recommended by the National Kidney Foundation (A Unifying Approach to GFR Estimation: Recommendations of the NKF-ASK Task Force on Reassessing the Inclusion of Race in Diagnosing Kidney Disease, JASN 2020). The CKD-EPI equation should not be used for patients with unstable renal function and has not been validated in children and those over 70. Current interpretive data was last reviewed 2021. Blood 11/28/2024 10:2 9 PM ARMATURE VARNISHER 11/28/2024 10:40 PM ARMATURE VARNISHER Tito García NP LAB BLOOD ORDERABLES Final Result Performing Organization Address City/[facility]/ZIP Co de Phone Number [facility] [place] [place] [address] * Blood culture Blood (11/28/2024 10:29 PM ARMATURE VARNISHER) Report Final Report: No growth Blood 11/28/2024 10:2 9 PM ARMATURE VARNISHER 11/28/2024 10:39 PM ARMATURE VARNISHER Narrative [facility] - 12/03/2024 7:00 AM ARMATURE VARNISHER Collection->Peripheral 1. Blood cultures are incubated for 4 days on a continuously monitored blood culture system. The first report of a negative culture is issued within 24 hours of receipt of the specimen in the laboratory. 2. Positive culture results are reported as soon as they are detected. 3. The most important factor for detection of microbes in the setting of bloodstream infection is the volume of blood submitted for culture. Failure to collect an optimal blood volume can result in false negative blood cultures. 4. For pediatric patients, the recommended blood volume to collect follows a weight based strategy. See the electronic test catalog for collection instructions. 5. For positive blood cultures, a rapid molecular test may be performed for organism identification using the dawson ePlex blood culture identification panel for gram positive (BCID-GP) and gram negative (BCID-GN) organisms. This nucleic acid amplification test detects microbial DNA in positive blood culture broth. This assay has been cleared by the [place] Food and Drug Administration and its performance characteristics have been verified by the [facility] Microbiology Laboratory. For questions about this culture, contact the Microbiology Laboratory at [phone]. Interpretive data was last revised on 24. Ana María Vaca NP LAB MICROBIOLOGY - GENERAL ORDERABLES Final Result [facility] Department [place] [address] * (ABNORMAL) CBC without differential (11/28/2024 10:29 PM ARMATURE VARNISHER) [facility] WBC 4.7 3.8 - 9.9 K/cumm Hgb 9.0(L) 11.9 - 15.5 g/dL [facility] Hct 28.1(L) 35.6 - 45.5 % [facility] Plt 143(L) 150 - 400 K/cumm [facility] MPV 9.6 9.1 - 12.3 fL [facility] RBC 3.04(L) 3.90 - 5.20 M/cumm [facility] MCV 92.4 81.3 - 96.4 fL [facility] MCH 29.6 27.1 - 33.3 pg [facility] MCHC 32.0(L) 32.3 - 35.7 g/dL [facility] RDW CV 17.2(H) 11.1 - 14.9 % [facility] RDW SD 59.2(H) 35.7 - 48.1 fL [facility] NRBC abs 0.00 0.00 - 0.01 K/cumm [facility] Blood 11/28/2024 10:2 9 PM ARMATURE VARNISHER 11/28/2024 10:41 PM ARMATURE VARNISHER Tito García SPOOLING OPERATOR LAB BLOOD ORDERABLES Final Result Performing Organization Address [facility] de Phone Number [facility] Department [place] [address] * (ABNORMAL) Phosphorus (11/28/2024 10:29 PM ARMATURE VARNISHER) Phosphorus, pl 1.4(L) 2.3 - 4.5 mg/dL Blood 11/28/2024 10:2 9 PM ARMATURE VARNISHER 11/28/2024 10:40 PM ARMATURE VARNISHER us Tito García SPOOLING OPERATOR LAB BLOOD ORDERABLES Final Result Performing Organization Address [facility] Co de Phone Number [facility] Department [place] [address] * Magnesium (11/28/2024 10:29 PM ARMATURE VARNISHER) Magnesium 2.2 1.4 - 2.5 mg/dL Blood 11/28/2024 10:2 9 PM ARMATURE VARNISHER 11/28/2024 10:40 PM ARMATURE VARNISHER Tito García SPOOLING OPERATOR LAB BLOOD ORDERABLES Final Result Performing Organization Address City/[facility] Co de Phone Number [facility] Department [place] [address] * (ABNORMAL) Basic metabolic panel (11/28/2024 10:29 PM ARMATURE VARNISHER) Sodium 131(L) 135 - 145 mmol/L Potassium, pl 3.9 3.3 - 4.9 mmol/L [facility] Chloride 96(L) 97 - 110 mmol/L [facility] CO2 30 22 - 32 mmol/L [facility] Anion gap 5 2 - 15 mmol/L [facility] BUN 14 6 - 25 mg/dL [facility] Creatinine 3.88(H) 0.60 - 1.10 mg/dL [facility] Glucose 84 70 - 199 mg/dL [facility] Comment: Interpretive Data Fasting glucose >/= 126 mg/dl is diagnostic for diabetes. Fasting is defined as no caloric intake for at least 8 hours. Fasting glucose between 100 mg/dl to 125 mg/dl is diagnostic of prediabetes. In a patient with classic symptoms of hyperglycemia or hyperglycemic crisis, a random glucose >/= 200 mg/dl is diagnostic for diabetes. In the absence of unequivocal hyperglycemia, results should be confirmed by repeat testing. The classification and Diagnosis of Diabetes Diabetes Care 2021; 46: S19-S40. Current interpretive data was last revised 2022. Calcium 7.9(L) 8.5 - 10.3 mg/dL [facility] Blood 11/28/2024 10:2 9 PM ARMATURE VARNISHER 11/28/2024 10:40 PM ARMATURE VARNISHER Tito García SPOOLING OPERATOR LAB BLOOD ORDERABLES Final Result [facility] Department [place] [address] * GENERAL (11/28/2024 12:40 PM ARMATURE VARNISHER) Narrative Spencer Hogue MD - 11/28/2024 12:40 PM ARMATURE VARNISHER Janett Reyes MD 11/28/2024 12:45 PM General - Inpatient Date/Time: 11/28/2024 12:40 PM Performed by: Janett Reyes MD Authorized by: Spencer Hogue MD [place] Protocol: RN Notified of Procedure: yes Informed consent: Risks, benefits, alternatives discussed and patient/career services representative/guardian agrees and accepts Patient's stated name/ matches armband: Yes Allergies confirmed: yes Consent form signed, dated, timed; matches correct patient, intended procedure and site: Yes Procedure details: Ampicillin challenge Spencer Hogue MD IN CLINIC/BEDSIDE ORDERABLES Final Result * ECG 12 lead (11/28/2024 8:45 AM ARMATURE VARNISHER) Ventricular Rate EKG/Min 78 BPM [facility] Atrial Rate 78 BPM [facility] MS-Interval (MSEC) 166 ms [facility] QRS-Interval (MSEC) 80 ms [facility] QT-Interval (MSEC) 410 ms [facility] QTc 467 ms [facility] P [place] 33 degrees [facility] R [place] -22 degrees [facility] T [place] 12 degrees [facility] Diagnosis Normal sinus rhythm Possible Left atrial enlargement Left ventricular hypertrophy ( R in aVL , Davey product ) Abnormal ECG When compared with ECG of 28-NOV-2023 13:24, Minimal criteria for Septal infarct are no longer Present Confirmed by MICHELLE BAEZ M.D ([id number]) on 11/28/2024 1:32:41 PM [facility] 11/28/2024 8:45 AM ARMATURE VARNISHER 11/28/2024 1:32 PM ARMATURE VARNISHER Delroy Troncoso MD ECG ORDERABLES Final R esult [facility] * (ABNORMAL) eGFR (11/27/2024 9:57 PM ARMATURE VARNISHER) eGFR 27(L) >=60 mL/min/1. 73 m2 Comment: Interpretive Data Reference Interval Normal >/= 90 mL/min/1.73m2 Mildly decreased* 60 - 89 mL/min/1.73m2 Mildly to moderately decreased 45 - 59 mL/min/1.73m2 Moderately to severely decreased 30 - 44 mL/min/1.73m2 Severely decreased 15 - 29 mL/min/1.73m2 Kidney Failure < 15 mL/min/1.73m2 *Relative to young adult level Estimated glomerular filtration rate is determined by the 2020 CKD-EPI equation recommended by the National Kidney Foundation (A Unifying Approach to GFR Estimation: Recommendations of the NKF-ASK Task Force on Reassessing the Inclusion of Race in Diagnosing Kidney Disease, JASN 2020). The CKD-EPI equation should not be used for patients with unstable renal function and has not been validated in children and those over 70. Current interpretive data was last reviewed 2021. Blood 11/27/2024 9:57 PM ARMATURE VARNISHER 11/27/2024 10:18 PM ARMATURE VARNISHER [facility] Shari García NP LAB BLOOD ORDERABLES Final Result [facility] Department [place] [address] * Blood culture Blood (11/27/2024 9:57 PM ARMATURE VARNISHER) Report Final Report: No growth Blood 11/27/2024 9:57 PM ARMATURE VARNISHER 11/27/2024 10:18 PM ARMATURE VARNISHER Narrative [facility] - 12/02/2024 7:01 AM ARMATURE VARNISHER Collection->Peripheral 1. Blood cultures are incubated for 4 days on a continuously monitored blood culture system. The first report of a negative culture is issued within 24 hours of receipt of the specimen in the laboratory. 2. Positive culture results are reported as soon as they are detected. 3. The most important factor for detection of microbes in the setting of bloodstream infection is the volume of blood submitted for culture. Failure to collect an optimal blood volume can result in false negative blood cultures. 4. For pediatric patients, the recommended blood volume to collect follows a weight based strategy. See the electronic test catalog for collection instructions. 5. For positive blood cultures, a rapid molecular test may be performed for organism identification using the dawson ePlex blood culture identification panel for gram positive (BCID-GP) and gram negative (BCID-GN) organisms. This nucleic acid amplification test detects microbial DNA in positive blood culture broth. This assay has been cleared by the [place] Food and Drug Administration and its performance characteristics have been verified by the [facility] Microbiology Laboratory. For questions about this culture, contact the Microbiology Laboratory at [phone]. Interpretive data was last revised on 24. us Ana María Vaca SPOOLING OPERATOR LAB MICROBIOLOGY - GENERAL ORDERABLES Final Result Performing Organization Address City/[facility]/ZIP Co de Phone Number [facility] [place] [address] * (ABNORMAL) CBC without differential (11/27/2024 9:57 PM ARMATURE VARNISHER) Pathologist [facility] WBC 4.4 3.8 - 9.9 K/cumm Hgb 9.6(L) 11.9 - 15.5 g/dL [facility] Hct 30.0(L) 35.6 - 45.5 % [facility] Plt 169 150 - 400 K/cumm [facility] MPV 9.6 9.1 - 12.3 fL [facility] RBC 3.29(L) 3.90 - 5.20 M/cumm [facility] MCV 91.2 81.3 - 96.4 fL [facility] MCH 29.2 27.1 - 33.3 pg [facility] MCHC 32.0(L) 32.3 - 35.7 g/dL [facility] RDW CV 17.4(H) 11.1 - 14.9 % [facility] RDW SD 58.7(H) 35.7 - 48.1 fL [facility] NRBC abs 0.00 0.00 - 0.01 K/cumm [facility] Blood 11/27/2024 9:57 PM ARMATURE VARNISHER 11/27/2024 10:19 PM ARMATURE VARNISHER Tito García NP LAB BLOOD ORDERABLES Final Result [facility] [place] [address] * (ABNORMAL) Phosphorus (11/27/2024 9:57 PM ARMATURE VARNISHER) [facility] Phosphorus, pl 1.1(L) 2.3 - 4.5 mg/dL Blood 11/27/2024 9:57 PM ARMATURE VARNISHER 11/27/2024 10:18 PM ARMATURE VARNISHER Tito García SPOOLING OPERATOR LAB BLOOD ORDERABLES Final Result Performing Organization Address City/[facility]/ZIP Co de Phone Number [facility] [place] [address] * Magnesium (11/27/2024 9:57 PM ARMATURE VARNISHER) [facility] Magnesium 1.9 1.4 - 2.5 mg/dL Blood 11/27/2024 9:57 PM ARMATURE VARNISHER 11/27/2024 10:18 PM ARMATURE VARNISHER Tito García LAB BLOOD ORDERABLES Final Result Performing Organization Address [facility] de Phone Number [facility] [place] [address] * (ABNORMAL) Basic metabolic panel (11/27/2024 9:57 PM ARMATURE VARNISHER) [facility] Sodium 133(L) 135 - 145 mmol/L Potassium, pl 3.5 3.3 - 4.9 mmol/L [facility] Chloride 95(L) 97 - 110 mmol/L [facility] CO2 32 22 - 32 mmol/L [facility] Anion gap 6 2 - 15 mmol/L [facility] BUN 4(L) 6 - 25 mg/dL [facility] Creatinine 2.15(H) 0.60 - 1.10 mg/dL [facility] Glucose 138 70 - 199 mg/dL [facility] Comment: Interpretive Data Fasting glucose >/= 126 mg/dl is diagnostic for diabetes. Fasting is defined as no caloric intake for at least 8 hours. Fasting glucose between 100 mg/dl to 125 mg/dl is diagnostic of prediabetes. In a patient with classic symptoms of hyperglycemia or hyperglycemic crisis, a random glucose >/= 200 mg/dl is diagnostic for diabetes. In the absence of unequivocal hyperglycemia, results should be confirmed by repeat testing. The classification and Diagnosis of Diabetes Diabetes Care 2021; 46: S19-S40. Current interpretive data was last revised 2022. Calcium 8.2(L) 8.5 - 10.3 mg/dL [facility] Blood 11/27/2024 9:57 PM ARMATURE VARNISHER 11/27/2024 10:18 PM ARMATURE VARNISHER Tito García NP LAB BLOOD ORDERABLES Final Result [facility] Department [place] [address] * Blood culture Blood (11/27/2024 2:02 PM ARMATURE VARNISHER) Report Final Report: No growth Blood 11/27/2024 2:02 PM ARMATURE VARNISHER 11/27/2024 2:24 PM ARMATURE VARNISHER Narrative [facility] - 12/01/2024 4:00 PM ARMATURE VARNISHER Collection->Peripheral 1. Blood cultures are incubated for 4 days on a continuously monitored blood culture system. The first report of a negative culture is issued within 24 hours of receipt of the specimen in the laboratory. 2. Positive culture results are reported as soon as they are detected. 3. The most important factor for detection of microbes in the setting of bloodstream infection is the volume of blood submitted for culture. Failure to collect an optimal blood volume can result in false negative blood cultures. 4. For pediatric patients, the recommended blood volume to collect follows a weight based strategy. See the electronic test catalog for collection instructions. 5. For positive blood cultures, a rapid molecular test may be performed for organism identification using the dawson ePlex blood culture identification panel for gram positive (BCID-GP) and gram negative (BCID-GN) organisms. This nucleic acid amplification test detects microbial DNA in positive blood culture broth. This assay has been cleared by the [place] Food and Drug Administration and its performance characteristics have been verified by the [facility] Microbiology Laboratory. For questions about this culture, contact the Microbiology Laboratory at [phone]. Interpretive data was last revised on 24. us Ana María Vaca SPOOLING OPERATOR LAB MICROBIOLOGY - GENERAL ORDERABLES Final Result [facility] [place] [address] * TRANSESOPHAGEAL ECHO (KALEN) W DOPPLER/CF WO CONTRAST (11/27/2024 12:37 PM ARMATURE VARNISHER) LV EF 60-65 % CONS SCIMAGE Anatomical Region Laterality Modality Echocardiography 11/27/2024 12:0 2 PM ARMATURE VARNISHER Narrative 11/27/2024 12:41 PM ARMATURE VARNISHER [facility] [place] [address] Transesophageal Echocardiographic Report Patient Name: QUIN MILLER J : 1970 (54y 4m) Gender: F Study Date: 11/27/2024 12:02:57 PM Ht(Inch): Wt(Lb): BSA: Evs Manager: Location: [id number] Order Provider: ESTHER RICHARDS Heart Rate: 78 BMI: Quality: Good Ref Provider: ESTHER RICHARDS Report amended on 2024-12-25 at 11:30:19 ARMATURE VARNISHER: Deleted: Tricuspid Valve: [REMOVED] Tricuspid Vegetation: There is no evidence of tricuspid valve vegetation. Previously Signed by:Mac Clifton MD 2024-12-18 15:10:07 ARMATURE VARNISHER End of Addendum Report amended on 2024-12-18 at 15:10:07 ARMATURE VARNISHER: Added/Modified: Performing Physician [ADDED]: [ADDED] Performed by is Mac Clifton MD Consent [ADDED]: [ADDED] Consent In Writing: Informed consent was obtained from the patient in writing. The risks and benefits of the procedure were explained in detail to the patient, including but not limited to the risk of aspiration, dysphagia, and esophageal perforation. After a thorough discussion of these risks and benefits, the patient agreed to proceed. Additional Procedures [ADDED]: [ADDED] Free Text: KALEN probe inserted by Mac Clifton MD. Deleted: Tricuspid Valve: [REMOVED] Tricuspid Vegetation: There is no evidence of tricuspid valve vegetation. Comments: KALEN probe inserted by Mac Clifton MD Previously Signed by:[facility]aritaPaladin HealthcareCarmen 11/27/2024 12:41:30 PM ARMATURE VARNISHER and Mac Clifton MD 11/27/2024 12:41:30 PM ARMATURE VARNISHER End of Addendum PROCEDURES: Transesophageal Echo Report: [id number] Echocardiography, transesophageal, real-time with image documentation (2D) including probe placement, image acquisition, interpretation, and report; +[id number] Doppler echocardiography, limited pulsed wave and/or continuous wave with spectral display; +[id number] Doppler echocardiography color flow velocity mapping; 51360 3D echocardiography, rendering with interpretation and reporting, not requiring post-processing on an independent workstation. Performing Physician: Performed by Mac Clifton MD. Consent: Informed consent was obtained from the patient in writing. The risks and benefits of the procedure were explained in detail to the patient, including but not limited to the risk of aspiration, dysphagia, and esophageal perforation. After a thorough discussion of these risks and benefits, the patient agreed to proceed. Medications: Medication(s) given during the procedure: Propofol 361. Pre Vitals: HR: 73 bpm. RR: 18. BP: 167/86 mmHg. Sp02: 95 %. Post Vitals: HR: 72 bpm. RR: 14. BP: 144/83 mmHg. Sp02: 99 %. Additional Procedures: KALEN probe inserted by Mac Clifton MD. INDICATIONS: Endocarditis. MEASUREMENTS: 2D/MM Value Range Doppler Value Range Estimated EF 60-65 % MR Peak Cezar 4.87 m/s MR Peak PG 94.87 MR Mean PG 61.00 mmHg Mv Alias Cezar 0.39 m/s MR VTI 157.0 cm MR Flow 1.98 ml/ses MR PISA 0.9 cm PISA ERO 0.4 cm2 PISA Regurgitant Volume 62.8 ml - FINDINGS: Left Ventricle: Normal Left ventricular size and systolic function. The left ventricle appears normal in size. Left ventricular systolic function appears normal. Right Ventricle: The right ventricule appears normal in size. Right ventricular systolic function appears normal. Left Atrium: The left atrium is normal in size. Right Atrium: The right atrium is normal in size. Atrial Septum: The interatrial septum is normal in appearance. No shunt by color Doppler. Mitral Valve: There is severe mitral regurgitation. MV Structure Abnormalities: There is evidence of a vegetation attached to the anterior leaflet of the mitral valve. Aortic Valve: Normal appearance and function of the aortic valve. Trileaflet aortic valve. No aortic regurgitation seen. Tricuspid Valve: Normal appearance of the tricuspid valve. There is mild tricuspid regurgitation. There is no evidence of tricuspid valve vegetation. Pulmonic Valve: Normal pulmonic valve appearance. No evidence of pulmonic regurgitation. Pericardium: Normal pericardium with no pericardial effusion. Aorta: Normal aortic root. The aortic root is normal in size. Sinus of Valsalva: 2.6 cm. The ascending aorta is normal in size. Ascending Aorta: 3 cm. Pulmonary Artery: Normal pulmonary artery size. Pulmonary Veins: Pulmonary veins are normal in appearance and pulse Doppler interrogation shows normal systolic predominant flow. 3D Findings: Vegetation attached to A2 scallop of anterior MV. CONCLUSIONS: 1. Left ventricular systolic function appears normal. 2. There is severe mitral regurgitation. There are 2 MR jets. Together MR is severe. There is evidence of a vegetation attached to the anterior leaflet of the mitral valve. The vegetation is undergoing abscess formation. No valve perforation. 3. No vegetation on other valves. No aortic root abscess. 4. Normal RV size and function. ATTESTATION: I have reviewed and interpreted the pertinent images and measurements of this study. I attest to the conclusions in the final report that is provided above. DISCLAIMER: The study images and the final report will be retained in the patient chart by the Echo Laboratory for the legally required time period. This chart constitutes the legal record of any testing performed. Electronically Signed By: Mac Clifton MD 11/27/2024 12:41:30 PM ARMATURE VARNISHER Electronically Signed By: Mac Clifton MD 11/27/2024 12:41:30 PM ARMATURE VARNISHER Electronically Amended By: Mac Clifton MD 2024-12-18 15:10:07 ARMATURE VARNISHER [ADDENDUM] Electronically Amended By: Mac Clifton MD 12/25/2024 11:30:19 AM ARMATURE VARNISHER [ADDENDUM] Procedure Note Mac Negron MD - 12/25/2024 [facility] Cardiac [place] [address] Transesophageal Echocardiographic Report Patient Name: QUIN MILLER J : 1970 (54y 4m) Gender: F Study Date: 11/27/2024 12:02:57 PM Ht(Inch): Wt(Lb): BSA: Evs Manager: Location: [id number] Order Provider:ESTHER RICHARDS Heart Rate: 78 BMI: Quality: Good Ref Provider: ESTHER RICHARDS Report amended on 2024-12-25 at 11:30:19 ARMATURE VARNISHER: Deleted: Tricuspid Valve: [REMOVED] Tricuspid Vegetation: There is no evidence of tricuspid valvevegetation. Previously Signed by:Mac Clifton MD 2024-12-18 15:10:07 ARMATURE VARNISHER End of Addendum Report amended on 2024-12-18 at 15:10:07 ARMATURE VARNISHER: Added/Modified: Performing Physician [ADDED]: [ADDED] Performed by is Mac Clifton MD Consent [ADDED]: [ADDED] Consent In Writing: Informed consent was obtained from the patientin writing. The risks and benefits of the procedure were explained in detail to thepatient, including but not limited to the risk of aspiration, dysphagia, andesophageal perforation. After a thorough discussion of these risks and benefits, thepatient agreed to proceed. Additional Procedures [ADDED]: [ADDED] Free Text: KALEN probe inserted by Mac Clifton MD. Deleted: Tricuspid Valve: [REMOVED] Tricuspid Vegetation: There is no evidence of tricuspid valvevegetation. Comments: KALEN probe inserted by Mac Clifton MD Previously Signed by:John 11/27/2024 12:41:30 PM ARMATURE VARNISHER and Raquel GRANADOS 11/27/2024 12:41:30 PM ARMATURE VARNISHER End of Addendum PROCEDURES: Transesophageal Echo Report: [id number] Echocardiography, transesophageal,real-time with image documentation (2D) including probe placement, image acquisition,interpretation, and report; +[id number] Doppler echocardiography, limited pulsed wave and/orcontinuous wave with spectral display; +[id number] Doppler echocardiography color flow velocitymapping; 92234 3D echocardiography, rendering with interpretation and reporting, notrequiring post-processing on an independent workstation. Performing Physician: Performed by Mac Clifton MD. Consent: Informed consent was obtained from the patient in writing. Therisks and benefits of the procedure were explained in detail to the patient,including but not limited to the risk of aspiration, dysphagia, and esophageal perforation.After a thorough discussion of these risks and benefits, the patient agreed toproceed. Medications: Medication(s) given during the procedure: Propofol 361. Pre Vitals: HR: 73 bpm. RR: 18. BP: 167/86 mmHg. Sp02: 95 %. Post Vitals: HR: 72 bpm. RR: 14. BP: 144/83 mmHg. Sp02: 99 %. Additional Procedures: KALEN probe inserted by Mac Clifton MD. INDICATIONS: Endocarditis. MEASUREMENTS: 2D/MM Value Range Doppler ValueRange Estimated EF 60-65 % MR Peak Cezar 4.87 m/s MR Peak PG 94.87 MR Mean PG 61.00 mmHg Mv Alias Cezar 0.39 m/s MR VTI 157.0 cm MR Flow 1.98 ml/ses MR PISA 0.9 cm PISA ERO 0.4 cm2 PISA Regurgitant Volume 62.8 ml - FINDINGS: Left Ventricle: Normal Left ventricular size and systolic function. Theleft ventricle appears normal in size. Left ventricular systolic function appearsnormal. Right Ventricle: The right ventricule appears normal in size. Rightventricular systolic function appears normal. Left Atrium: The left atrium is normal in size. Right Atrium: The right atrium is normal in size. Atrial Septum: The interatrial septum is normal in appearance. No shunt bycolor Doppler. Mitral Valve: There is severe mitral regurgitation. MV StructureAbnormalities: There is evidence of a vegetation attached to the anterior leaflet of the mitralvalve. Aortic Valve: Normal appearance and function of the aortic valve.Trileaflet aortic valve. No aortic regurgitation seen. Tricuspid Valve: Normal appearance of the tricuspid valve. There is mildtricuspid regurgitation. There is no evidence of tricuspid valve vegetation. Pulmonic Valve: Normal pulmonic valve appearance. No evidence of pulmonicregurgitation. Pericardium: Normal pericardium with no pericardial effusion. Aorta: Normal aortic root. The aortic root is normal in size. Sinus ofValsalva: 2.6 cm. The ascending aorta is normal in size. Ascending Aorta: 3 cm. Pulmonary Artery: Normal pulmonary artery size. Pulmonary Veins: Pulmonary veins are normal in appearance and pulseDoppler interrogation shows normal systolic predominant flow. 3D Findings: Vegetation attached to A2 scallop of anterior MV. CONCLUSIONS: 1. Left ventricular systolic function appears normal. 2. There is severe mitral regurgitation. There are 2 MR jets. Together MRis severe. There is evidence of a vegetation attached to the anterior leaflet of themitral valve. The vegetation is undergoing abscess formation. No valve perforation. 3. No vegetation on other valves. No aortic root abscess. 4. Normal RV size and function. ATTESTATION: I have reviewed and interpreted the pertinent images and measurements ofthis study. I attest to the conclusions in the final report that is provided above. DISCLAIMER: The study images and the final report will be retained in the patientchart by the Echo Laboratory for the legally required time period. This chart constitutesthe legal record of any testing performed. Electronically Signed By: Mac Clifton MD 11/27/2024 12:41:30 PM ARMATURE VARNISHER Electronically Signed By: Mac Clifton MD 11/27/2024 12:41:30 PM ARMATURE VARNISHER Electronically Amended By: Mac Clifton MD 2024-12-18 15:10:07 ARMATURE VARNISHER [ADDENDUM] Electronically Amended By: Mac Clifton MD 12/25/2024 11:30:19 AM ARMATURE VARNISHER [ADDENDUM] us Esther Richards SPOOLING OPERATOR CV ECHO PROCEDUR ES Edited Result - Final * POC Blood Gas and Chemistries, Arterial - (11/27/2024 11:02 AM ARMATURE VARNISHER) K POC 4.6 3.3 - 4.9 mmol/L Comment: Interpretive Data Not all point of care methods assess for hemolysis. Confirm with instrument and retest K+ if not consistent with clinical signs and symptoms. Current Interpretive Data was last revised on 2024. Blood 11/27/2024 11:0 2 AM ARMATURE VARNISHER 11/27/2024 11:02 AM ARMATURE VARNISHER us Delroy Troncoso MD LAB POCT ORDERABLES - D EVICE Final Result [facility] Department [place] [address] * MRI Brain WO Contrast (11/27/2024 2:47 AM ARMATURE VARNISHER) Anatomical Region Laterality Modality Head and Neck N/A Magnetic Resonan ce 11/27/2024 6:15 AM ARMATURE VARNISHER Impressions 11/27/2024 6:15 AM ARMATURE VARNISHER 1. No acute intracranial abnormality identified including no acute infarction or evidence of intracranial hemorrhage. 2. A few punctate foci of subcortical FLAIR hyperintensity. While nonspecific, this may represent sequela of mild chronic small vessel ischemic disease. 3. Right ostiomeatal unit pattern sinus disease. Electronically signed by: Chacho Hartman M.D. Narrative 11/27/2024 6:15 AM ARMATURE VARNISHER EXAMINATION: Magnetic resonance imaging (MRI) of the brain and brainstem without contrast HISTORY: Preoperative study, endocarditis TECHNIQUE: Multiplanar multi-weighted MRI of the brain and brainstem was performed without intravenous contrast using the general brain protocol. COMPARISON: Head CT from 11/26/2024 FINDINGS: The scalp and calvarium are normal. The superior sagittal sinus demonstrates normal venous flow. The corpus callosum is normal in shape and signal intensity. The posterior fossa is unremarkable. The pituitary and sella are normal. The brainstem and craniocervical junction are unremarkable. A few scattered punctate foci of FLAIR hyperintensity predominantly in the subcortical white matter are nonspecific but may represent sequela of mild chronic small vessel ischemic disease. Diffusion weighted images reveal no hyperintensities to suggest acute cerebral infarction. The susceptibility weighted sequences reveal no evidence of acute or chronic hemorrhage. The ventricles are normal in size and position without evidence of hydrocephalus. Complete opacification of the right maxillary sinus and the right frontal sinus and near complete opacification of the right ethmoid air cells. The visualized portions of the mastoids are unremarkable. The orbits appear normal. Normal flow voids are demonstrated in the carotid arteries and basilar artery. Procedure Note Chacho Hartman MD - 11/27/2024 EXAMINATION: Magnetic resonance imaging (MRI) of the brain and brainstem without contrast HISTORY: Preoperative study, endocarditis TECHNIQUE: Multiplanar multi-weighted MRI of the brain and brainstem was performed without intravenous contrast using the general brain protocol. COMPARISON: Head CT from 11/26/2024 FINDINGS: The scalp and calvarium are normal. The superior sagittal sinus demonstrates normal venous flow. The corpus callosum is normal in shape and signal intensity. The posterior fossa is unremarkable. The pituitary and sella are normal. The brainstem and craniocervical junction are unremarkable. A few scattered punctate foci of FLAIR hyperintensity predominantly in the subcortical white matter are nonspecific but may represent sequela of mild chronic small vessel ischemic disease. Diffusion weighted images reveal no hyperintensities to suggest acute cerebral infarction. The susceptibility weighted sequences reveal no evidence of acute or chronic hemorrhage. The ventricles are normal in size and position without evidence of hydrocephalus. Complete opacification of the right maxillary sinus and the right frontal sinus and near complete opacification of the right ethmoid air cells. The visualized portions of the mastoids are unremarkable. The orbits appear normal. Normal flow voids are demonstrated in the carotid arteries and basilar artery. IMPRESSION: 1. No acute intracranial abnormality identified including no acute infarction or evidence of intracranial hemorrhage. 2. A few punctate foci of subcortical FLAIR hyperintensity. While nonspecific, this may represent sequela of mild chronic small vessel ischemic disease. 3. Right ostiomeatal unit pattern sinus disease. Electronically signed by: Chacho Hartman M.D. Esther Richards SPOOLING OPERATOR IMG MRI PROCEDUR ES Final Result * (ABNORMAL) eGFR (11/26/2024 11:09 PM ARMATURE VARNISHER) eGFR 12(L) >=60 mL/min/1. 73 m2 Comment: Interpretive Data Reference Interval Normal >/= 90 mL/min/1.73m2 Mildly decreased* 60 - 89 mL/min/1.73m2 Mildly to moderately decreased 45 - 59 mL/min/1.73m2 Moderately to severely decreased 30 - 44 mL/min/1.73m2 Severely decreased 15 - 29 mL/min/1.73m2 Kidney Failure < 15 mL/min/1.73m2 *Relative to young adult level Estimated glomerular filtration rate is determined by the 2020 CKD-EPI equation recommended by the National Kidney Foundation (A Unifying Approach to GFR Estimation: Recommendations of the NKF-ASK Task Force on Reassessing the Inclusion of Race in Diagnosing Kidney Disease, JASN 2020). The CKD-EPI equation should not be used for patients with unstable renal function and has not been validated in children and those over 70. Current interpretive data was last reviewed 2021. Blood 11/26/2024 11:0 9 PM ARMATURE VARNISHER 11/26/2024 11:56 PM ARMATURE VARNISHER Tito García SPOOLING OPERATOR LAB BLOOD ORDERABLES Final Result Performing Organization Address City/[facility]/ZIP Co de Phone Number [facility] [place] [address] * (ABNORMAL) CBC without differential (11/26/2024 11:09 PM ARMATURE VARNISHER) Pathologist [facility] WBC 5.1 3.8 - 9.9 K/cumm Hgb 9.0(L) 11.9 - 15.5 g/dL [facility] Hct 28.7(L) 35.6 - 45.5 % [facility] Plt 175 150 - 400 K/cumm [facility] MPV 10.8 9.1 - 12.3 fL [facility] RBC 3.09(L) 3.90 - 5.20 M/cumm [facility] MCV 92.9 81.3 - 96.4 fL [facility] MCH 29.1 27.1 - 33.3 pg [facility] MCHC 31.4(L) 32.3 - 35.7 g/dL [facility] RDW CV 17.9(H) 11.1 - 14.9 % [facility] RDW SD 60.7(H) 35.7 - 48.1 fL [facility] NRBC abs 0.00 0.00 - 0.01 K/cumm [facility] Blood 11/26/2024 11:0 9 PM ARMATURE VARNISHER 11/26/2024 11:52 PM ARMATURE VARNISHER Tito García NP LAB BLOOD ORDERABLES Final Result Performing Organization Address City/[facility]/ZIP Co de Phone Number [facility] [place] [address] * Type and screen (11/26/2024 11:09 PM ARMATURE VARNISHER) Pathologist [facility] ABO Rh B Positive Radha, indirect Negative [facility] Blood 11/26/2024 11:0 9 PM ARMATURE VARNISHER 11/27/2024 12:06 AM ARMATURE VARNISHER Narrative [facility] - 11/27/2024 1:18 AM ARMATURE VARNISHER Has the patient had Daratumumab or Isatuximab in the past 6 months?->Unknown Tito García SPOOLING OPERATOR LAB BLOOD BANK TEST ORDERA BLES Final Result [facility] [place] [address] * (ABNORMAL) Phosphorus (11/26/2024 11:09 PM ARMATURE VARNISHER) [facility] Phosphorus, pl 1.8(L) 2.3 - 4.5 mg/dL Blood 11/26/2024 11:0 9 PM ARMATURE VARNISHER 11/26/2024 11:56 PM ARMATURE VARNISHER Tito García NP LAB BLOOD ORDERABLES Final Result Performing Organization Address [facility] Co de Phone Number [facility] [place] [address] * Magnesium (11/26/2024 11:09 PM ARMATURE VARNISHER) [facility] Magnesium 2.4 1.4 - 2.5 mg/dL Blood 11/26/2024 11:0 9 PM ARMATURE VARNISHER 11/26/2024 11:56 PM ARMATURE VARNISHER Tito García NP LAB BLOOD ORDERABLES Final Result Performing Organization Address [facility] Co de Phone Number [facility] [place] [address] * (ABNORMAL) Basic metabolic panel (11/26/2024 11:09 PM ARMATURE VARNISHER) [facility] Sodium 131(L) 135 - 145 mmol/L Potassium, pl 4.5 3.3 - 4.9 mmol/L [facility] Comment:Hemolyzed; Potassium value may be falsely elevated by as much as 0.6-1.0 mmol/L. Suggest redraw and reanalysis. Chloride 97 97 - 110 mmol/L [facility] CO2 29 22 - 32 mmol/L [facility] Anion gap 5 2 - 15 mmol/L [facility] BUN 12 6 - 25 mg/dL [facility] Creatinine 4.29(H) 0.60 - 1.10 mg/dL [facility] Glucose 160 70 - 199 mg/dL [facility] Comment: Interpretive Data Fasting glucose >/= 126 mg/dl is diagnostic for diabetes. Fasting is defined as no caloric intake for at least 8 hours. Fasting glucose between 100 mg/dl to 125 mg/dl is diagnostic of prediabetes. In a patient with classic symptoms of hyperglycemia or hyperglycemic crisis, a random glucose >/= 200 mg/dl is diagnostic for diabetes. In the absence of unequivocal hyperglycemia, results should be confirmed by repeat testing. The classification and Diagnosis of Diabetes Diabetes Care 2021; 46: S19-S40. Current interpretive data was last revised 2022. Calcium 8.3(L) 8.5 - 10.3 mg/dL [facility] Blood 11/26/2024 11:0 9 PM ARMATURE VARNISHER 11/26/2024 11:56 PM ARMATURE VARNISHER Tito García SPOOLING OPERATOR LAB BLOOD ORDERABLES Final Result Performing Organization Address City/[facility] [facility]ZIP Co de Phone Number [facility] [place] [address] * (ABNORMAL) Potassium (11/26/2024 8:26 AM ARMATURE VARNISHER) Pathologist [facility] Potassium, pl 5.0(H) 3.3 - 4.9 mmol/L Blood 11/26/2024 8:26 AM ARMATURE VARNISHER 11/26/2024 9:40 AM ARMATURE VARNISHER us Ana María Vaca SPOOLING OPERATOR LAB BLOOD ORDERABLES Final Result MICHELET [facility] [place] [place] [address] * Tacrolimus level trough (11/26/2024 5:10 AM ARMATURE VARNISHER) Tacrolimus trough 2.0 ng/mL Comment: Interpretive Data Testing performed by liquid chromatography-tandem mass spectrometry. Therapeutic concentrations vary depending on type of transplanted organ and time elapsed since transplant. Typical trough concentrations range from 5-15 ng/mL. This test was developed and its performance characteristics determined by the [facility] consistent with CLIA requirements. This test has not been cleared or approved by the US Food and Drug administration. Current interpretive data last reviewed 2020. Blood 11/26/2024 5:10 AM ARMATURE VARNISHER 11/26/2024 5:54 AM ARMATURE VARNISHER Narrative MICHELET [facility] - 11/26/2024 11:14 AM ARMATURE VARNISHER Please collect 12 hours after last dose of tacrolimus. Thank you! Alejandra Bautista SPOOLING OPERATOR LAB BLOOD ORDERABLES Sarah l Result Performing Organization Address [facility] [place] [address] * (ABNORMAL) Potassium (11/26/2024 5:10 AM ARMATURE VARNISHER) Pathologist [facility] Potassium, pl 6.0(H) 3.3 - 4.9 mmol/L Comment:Hemolyzed; Potassium value may be falsely elevated by as much as 0.6-1.0 mmol/L. Suggest redraw and reanalysis. Blood 11/26/2024 5:10 AM ARMATURE VARNISHER 11/26/2024 5:53 AM ARMATURE VARNISHER Ana María Vaca SPOOLING OPERATOR LAB BLOOD ORDERABLES Final Result Performing Organization Address [facility] de Phone Number [facility] Department [place] [address] * CTA Chest Abdomen Pelvis (11/26/2024 1:56 AM ARMATURE VARNISHER) Anatomical Region Laterality Modality Body N/A Computed Tomogra phy 11/26/2024 9:22 AM ARMATURE VARNISHER Impressions 11/26/2024 10:25 AM ARMATURE VARNISHER 1. Location of vasculature posterior to sternum as described above. 2. Abdominal aortic, common iliac, external iliac, and femoral artery measurements in preparation for minimally invasive cannulation procedure as described above. 3. Likely CT correlate for the reported mitral valve vegetation, though cardiac valves are not well evaluated on this non-gated examination. No sequela of septic emboli in the chest, abdomen, or pelvis. Dictated by: Mark Anthony Hall MD The radiology attending physician has personally reviewed this study, and had reviewed and/or edited this written report and agrees with it. Electronically signed by: Vinny Gomez M.D. Narrative 11/26/2024 10:25 AM ARMATURE VARNISHER EXAMINATION: CT of the chest, abdomen, and pelvis with contrast with 3D rendering HISTORY: Pre-operative evaluation for coronary artery bypass graft procedure. TECHNIQUE: CT of the chest, abdomen, and pelvis was performed with 95 mL Optiray 350 intravenous contrast. Images were transferred to an independent workstation for additional 3D post-processing. COMPARISON: CT abdomen pelvis 08/24/2021 FINDINGS: Measurements: Sternal measurements: - The mid manubrium is 3 mm anterior to the left brachiocephalic vein. - The proximal sternum is 17 mm anterior to the ascending aorta. - The mid sternum is 11 mm anterior to the right ventricular outflow tract. - The distal sternum is 7 mm anterior to the right ventricle. Abdominal aortic and pelvic arterial smallest diameter measurements (made from centerline curved MPRs): - Infrarenal aorta: 14 mm x 14 mm. There is mild calcification. - Right common iliac artery: 11 mm x 10 mm. There is no significant calcification. - Left common iliac artery: 11 mm x 10 mm. There is no significant calcification. - There is mild tortuosity of the bilateral common iliac arteries. This is equal in distribution. - Right external iliac artery: 8 mm x 8 mm. There is no significant calcification. - Left external iliac artery: 9 mm x 8 mm. There is no significant calcification. - There is mild tortuosity of the bilateral external iliac arteries. This is equal in distribution. - Right common femoral artery: 8 x 8 mm. There is no significant calcification. - Left common femoral artery: 9 x 9 mm. There is no significant calcification. - There is mild tortuosity of the bilateral femoral arteries. This is equal in distribution. Other findings: Chest: - Atherosclerosis in the ascending aorta: none calcified atherosclerosis - Atherosclerosis in the descending aorta: none calcified atherosclerosis No pulmonary consolidation. No pleural effusion or pneumothorax. There is mild tree in bud nodularity in the right anterior upper lobe, likely representing minor endobronchial infection. No suspicious pulmonary nodule. The central airways are normal in caliber. No thoracic lymphadenopathy. There are tiny subcentimeter thyroid nodules. Normal heart size. The cardiac valves are not well evaluated due to motion artifact. There is a possible vegetation along the anterior leaflet of the mitral valve. No pericardial effusion. The thoracic aorta is normal in caliber. Abdomen/pelvis: No suspicious liver lesion. There is cholelithiasis. The gallbladder is contracted. No biliary ductal dilatation. The pancreas, spleen, and adrenal glands are normal. 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 There are multiple small bilateral nonobstructing renal stones and cysts, including some cysts with thin septations. No hydronephrosis of the lummi kidneys. 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 The urinary bladder is normal. The uterus is not seen. No suspicious adnexal mass. There is a small hiatal hernia. Otherwise the stomach and duodenum are normal. The appendix is normal. No bowel obstruction or evidence of acute inflammation. There is trace free fluid in the pelvis. No pneumoperitoneum. Bones/soft tissues: There is mild diffuse body wall edema. Small locules of gas within the anterior abdominal wall are likely related to percutaneous injection. No suspicious osseous lesions. Procedure Note Vinny Gomez MD - 11/26/2024 EXAMINATION: CT of the chest, abdomen, and pelvis with contrast with 3D rendering HISTORY: Pre-operative evaluation for coronary artery bypass graft procedure. TECHNIQUE: CT of the chest, abdomen, and pelvis was performed with 95 mL Optiray 350 intravenous contrast. Images were transferred to an independent workstation for additional 3D post-processing. COMPARISON: CT abdomen pelvis 08/24/2021 FINDINGS: Measurements: Sternal measurements: - The mid manubrium is 3 mm anterior to the left brachiocephalic vein. - The proximal sternum is 17 mm anterior to the ascending aorta. - The mid sternum is 11 mm anterior to the right ventricular outflow tract. - The distal sternum is 7 mm anterior to the right ventricle. Abdominal aortic and pelvic arterial smallest diameter measurements (made from centerline curved MPRs): - Infrarenal aorta: 14 mm x 14 mm. There is mild calcification. - Right common iliac artery: 11 mm x 10 mm. There is no significant calcification. - Left common iliac artery: 11 mm x 10 mm. There is no significant calcification. - There is mild tortuosity of the bilateral common iliac arteries. This is equal in distribution. - Right external iliac artery: 8 mm x 8 mm. There is no significant calcification. - Left external iliac artery: 9 mm x 8 mm. There is no significant calcification. - There is mild tortuosity of the bilateral external iliac arteries. This is equal in distribution. - Right common femoral artery: 8 x 8 mm. There is no significant calcification. - Left common femoral artery: 9 x 9 mm. There is no significant calcification. - There is mild tortuosity of the bilateral femoral arteries. This is equal in distribution. Other findings: Chest: - Atherosclerosis in the ascending aorta: none calcified atherosclerosis - Atherosclerosis in the descending aorta: none calcified atherosclerosis No pulmonary consolidation. No pleural effusion or pneumothorax. There is mild tree in bud nodularity in the right anterior upper lobe, likely representing minor endobronchial infection. No suspicious pulmonary nodule. The central airways are normal in caliber. No thoracic lymphadenopathy. There are tiny subcentimeter thyroid nodules. Normal heart size. The cardiac valves are not well evaluated due to motion artifact. There is a possible vegetation along the anterior leaflet of the mitral valve. No pericardial effusion. The thoracic aorta is normal in caliber. Abdomen/pelvis: No suspicious liver lesion. There is cholelithiasis. The gallbladder is contracted. No biliary ductal dilatation. The pancreas, spleen, and adrenal glands are normal. 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 There are multiple small bilateral nonobstructing renal stones and cysts, including some cysts with thin septations. No hydronephrosis of the lummi kidneys. 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 The urinary bladder is normal. The uterus is not seen. No suspicious adnexal mass. There is a small hiatal hernia. Otherwise the stomach and duodenum are normal. The appendix is normal. No bowel obstruction or evidence of acute inflammation. There is trace free fluid in the pelvis. No pneumoperitoneum. Bones/soft tissues: There is mild diffuse body wall edema. Small locules of gas within the anterior abdominal wall are likely related to percutaneous injection. No suspicious osseous lesions. IMPRESSION: 1. Location of vasculature posterior to sternum as described above. 2. Abdominal aortic, common iliac, external iliac, and femoral artery measurements in preparation for minimally invasive cannulation procedure as described above. 3. Likely CT correlate for the reported mitral valve vegetation, though cardiac valves are not well evaluated on this non-gated examination. No sequela of septic emboli in the chest, abdomen, or pelvis. Dictated by: Mark Anthony Hall MD The radiology attending physician has personally reviewed this study, and had reviewed and/or edited this written report and agrees with it. Electronically signed by: Vinny Gomez M.D. Amado Patiño NP IMG CT PROCEDURES Final Resu lt * CT Head WO Contrast (11/26/2024 1:56 AM ARMATURE VARNISHER) Anatomical Region Laterality Modality Head and Neck N/A Computed Tomogra phy 11/26/2024 4:32 AM ARMATURE VARNISHER Impressions 11/26/2024 2:18 PM ARMATURE VARNISHER 1. No acute intracranial hemorrhage or acute edematous large territory infarct. 2. Right maxillary, anterior ethmoid, and frontal sinus mucosal opacification suggesting ostiomeatal unit obstructive pattern. Dictated by: Jaskaran Brian MD The radiology attending physician has personally reviewed this study, and had reviewed and/or edited this written report and agrees with it. Electronically signed by: Amrik Narvaez M.D. Narrative 11/26/2024 2:18 PM ARMATURE VARNISHER EXAMINATION: CT head without contrast HISTORY: Preoperative evaluation TECHNIQUE: CT of the head was performed with images acquired from skull base to vertex without intravenous contrast. COMPARISON: None Available. FINDINGS: There is right maxillary sinus mucosal opacification, likely right maxillary sinusitis. There is mucosal opacification of the right ethmoid and frontal sinuses. There is no acute intracranial hemorrhage. Ventricles are of normal size and morphology. No mass effect or midline shift is present. The bear-white matter differentiation is normal. The visualized portions of the orbits are normal. The visualized portions of the mastoids are normal. No fractures are identified. Procedure Note Amrik Narvaez MD PhD - 11/26/2024 EXAMINATION: CT head without contrast HISTORY: Preoperative evaluation TECHNIQUE: CT of the head was performed with images acquired from skull base to vertex without intravenous contrast. COMPARISON: None Available. FINDINGS: There is right maxillary sinus mucosal opacification, likely right maxillary sinusitis. There is mucosal opacification of the right ethmoid and frontal sinuses. There is no acute intracranial hemorrhage. Ventricles are of normal size and morphology. No mass effect or midline shift is present. The bear-white matter differentiation is normal. The visualized portions of the orbits are normal. The visualized portions of the mastoids are normal. No fractures are identified. IMPRESSION: 1. No acute intracranial hemorrhage or acute edematous large territory infarct. 2. Right maxillary, anterior ethmoid, and frontal sinus mucosal opacification suggesting ostiomeatal unit obstructive pattern. Dictated by: Jaskaran Brian MD The radiology attending physician has personally reviewed this study, and had reviewed and/or edited this written report and agrees with it. Electronically signed by: Amrik Narvaez M.D. Amado Patiño SPOOLING OPERATOR IMG CT PROCEDURES Final Resu lt * (ABNORMAL) eGFR (11/25/2024 11:33 PM ARMATURE VARNISHER) eGFR 21(L) >=60 mL/min/1. 73 m2 Comment: Interpretive Data Reference Interval Normal >/= 90 mL/min/1.73m2 Mildly decreased* 60 - 89 mL/min/1.73m2 Mildly to moderately decreased 45 - 59 mL/min/1.73m2 Moderately to severely decreased 30 - 44 mL/min/1.73m2 Severely decreased 15 - 29 mL/min/1.73m2 Kidney Failure < 15 mL/min/1.73m2 *Relative to young adult level Estimated glomerular filtration rate is determined by the 2020 CKD-EPI equation recommended by the National Kidney Foundation (A Unifying Approach to GFR Estimation: Recommendations of the NKF-ASK Task Force on Reassessing the Inclusion of Race in Diagnosing Kidney Disease, MAGALIE 2020). The CKD-EPI equation should not be used for patients with unstable renal function and has not been validated in children and those over 70. Current interpretive data was last reviewed 2021. Blood 11/25/2024 11:3 3 PM ARMATURE VARNISHER 11/26/2024 12:13 AM ARMATURE VARNISHER Tito García NP LAB BLOOD ORDERABLES Final Result [facility] Department [place] [address] * (ABNORMAL) CBC without differential (11/25/2024 11:33 PM ARMATURE VARNISHER) WBC 6.2 3.8 - 9.9 K/cumm Hgb 9.0(L) 11.9 - 15.5 g/dL [facility] Hct 28.5(L) 35.6 - 45.5 % [facility] Plt 173 150 - 400 K/cumm [facility] MPV 10.3 9.1 - 12.3 fL [facility] RBC 3.06(L) 3.90 - 5.20 M/cumm [facility] MCV 93.1 81.3 - 96.4 fL [facility] MCH 29.4 27.1 - 33.3 pg [facility] MCHC 31.6(L) 32.3 - 35.7 g/dL [facility] RDW CV 17.9(H) 11.1 - 14.9 % [facility] RDW SD 61.8(H) 35.7 - 48.1 fL [facility] NRBC abs 0.00 0.00 - 0.01 K/cumm [facility] Blood 11/25/2024 11:3 3 PM ARMATURE VARNISHER 11/26/2024 12:19 AM ARMATURE VARNISHER Tito García NP LAB BLOOD ORDERABLES Final Result [facility] [address] * (ABNORMAL) Phosphorus (11/25/2024 11:33 PM ARMATURE VARNISHER) Pathologist [facility] Phosphorus, pl 1.6(L) 2.3 - 4.5 mg/dL Blood 11/25/2024 11:3 3 PM ARMATURE VARNISHER 11/26/2024 12:13 AM ARMATURE VARNISHER Tito García SPOOLING OPERATOR LAB BLOOD [place] [address] * Magnesium (11/25/2024 11:33 PM ARMATURE VARNISHER) Pathologist [facility] Magnesium 2.2 1.4 - 2.5 mg/dL Blood 11/25/2024 11:3 3 PM ARMATURE VARNISHER 11/26/2024 12:13 AM ARMATURE VARNISHER Tito García SPOOLING OPERATOR LAB BLOOD [place] [address] * (ABNORMAL) Creatine kinase (CK), total (11/25/2024 11:33 PM ARMATURE VARNISHER) Pathologist [facility] CK 26(L) 30 - 200 Units/L Blood 11/25/2024 11:3 3 PM ARMATURE VARNISHER 11/26/2024 12:13 AM ARMATURE VARNISHER Ana María Vaca SPOOLING OPERATOR LAB BLOOD [place] [address] * (ABNORMAL) Basic metabolic panel (11/25/2024 11:33 PM ARMATURE VARNISHER) Pathologist [facility] Sodium 132(L) 135 - 145 mmol/L Potassium, pl 4.3 3.3 - 4.9 mmol/L [facility] Chloride 98 97 - 110 mmol/L [facility] Comment:Repeated and Verifie d CO2 34(H) 22 - 32 mmol/L [facility] Anion gap <1(L) 2 - 15 mmol/L [facility] Comment:Repeated and Verifie d BUN 8 6 - 25 mg/dL [facility] Creatinine 2.62(H) 0.60 - 1.10 mg/dL [facility] Glucose 116 70 - 199 mg/dL [facility] Comment: Interpretive Data Fasting glucose >/= 126 mg/dl is diagnostic for diabetes. Fasting is defined as no caloric intake for at least 8 hours. Fasting glucose between 100 mg/dl to 125 mg/dl is diagnostic of prediabetes. In a patient with classic symptoms of hyperglycemia or hyperglycemic crisis, a random glucose >/= 200 mg/dl is diagnostic for diabetes. In the absence of unequivocal hyperglycemia, results should be confirmed by repeat testing. The classification and Diagnosis of Diabetes Diabetes Care 2021; 46: S19-S40. Current interpretive data was last revised 2022. Calcium 8.0(L) 8.5 - 10.3 mg/dL [facility] Blood 11/25/2024 11:3 3 PM ARMATURE VARNISHER 11/26/2024 12:13 AM ARMATURE VARNISHER us Tito García NP LAB BLOOD ORDERABLES Final Result [facility] [place] [address] * US Outside Reference (11/25/2024 3:55 PM ARMATURE VARNISHER) Impressions RAD_PACS_[facility] - 11/25/2024 3:55 PM ARMATURE VARNISHER These images are for Reference purposes only and have not been reviewed by [facility] Radiology. There will be no report generated by a [facility] Radiologist. Narrative RAD_PACS_[facility] - 11/25/2024 3:55 PM ARMATURE VARNISHER EXAMINATION: Images For Reference Purposes Only us Delroy Troncoso MD IMG US PROCEDURES Final Result Performing Organization Address [facility] Co de Phone Number [email or web address] * Hepatitis B Surface Antigen Blood (11/25/2024 3:24 PM ARMATURE VARNISHER) Pathologist [facility] HepBsAg Nonreactive Nonreactive Blood 11/25/2024 3:24 PM ARMATURE VARNISHER 11/25/2024 3:59 PM ARMATURE VARNISHER Edmundo Velasquez SPOOLING OPERATOR LAB MICROBIOLOGY - GENE RAL ORDERABLES Final Result Performing Organization Address [facility] de Phone Number MICHELET [facility] Department [place] [address] * Infection Prevention Leidy auris PCR, surveillance Axilla/Groin (11/25/2024 9:57 AM ARMATURE VARNISHER) [facility] Leidy auris DNA Not Detected Not Detected [facility] Comment: Interpretive Data Testing performed by [facility] Infectious Disease [facility] using the Jannie dawson 6800 Leidy auris assay. This assay detects DNA from Leidy auris using Real-Time PCR. This assay is laboratory developed and is not cleared by the [facility] Food and Drug Administration. The performance characteristics have been verified by the [facility]ious Disease [facility]. Axilla/Groin 11/25/2024 9:57 AM ARMATURE VARNISHER 11/25/2024 10:13 AM ARMATURE VARNISHER Paco [place] MD LAB MICROBIOLOGY - GENERAL ORDER CHERI Final Result Performing Organization Address [facility] Co de Phone Number MICHELET [facility] [place] [address] [facility] * Tacrolimus level trough (11/25/2024 9:57 AM ARMATURE VARNISHER) Pathologist [facility] Tacrolimus trough 3.8 ng/mL Comment: Interpretive Data Testing performed by liquid chromatography-tandem mass spectrometry. Therapeutic concentrations vary depending on type of transplanted organ and time elapsed since transplant. Typical trough concentrations range from 5-15 ng/mL. This test was developed and its performance characteristics determined by the [facility] consistent with CLIA requirements. This test has not been cleared or approved by the US Food and Drug administration. Current interpretive data last reviewed 2020. Blood 11/25/2024 9:57 AM ARMATURE VARNISHER 11/25/2024 10:20 AM ARMATURE VARNISHER Amado Patiño NP LAB BLOOD ORDERABLES Final R esult Performing Organization Address City/[facility] Co de Phone Number [facility] [place] [address] * (ABNORMAL) Potassium, whole blood (11/25/2024 7:47 AM ARMATURE VARNISHER) Potassium, bld 6.4(C) 3.3 - 4.9 mmol/L Comment: Verified Specimen not hemolyzed. Repeated and verified. Blood 11/25/2024 7:47 AM ARMATURE VARNISHER 11/25/2024 7:56 AM ARMATURE VARNISHER Amado Patiño NP LAB BLOOD ORDERABLES Final R esult Performing Organization Address [facility] de Phone Number [facility] [place] [address] * Critical Result Callback Chemistry (11/25/2024 7:47 AM ARMATURE VARNISHER) Date Notified [id number] Time Notified 819 MICHELET JARAMILLO TestName Potassium WB MICHELET JARAMILLO Called/Read Back Anthony JARAMILLO Credentials RN MICHELET JARAMILLO Called By WALKER BOWIE Blood 11/25/2024 7:47 AM ARMATURE VARNISHER 11/25/2024 7:56 AM ARMATURE VARNISHER Amado Patiño NP LAB BLOOD ORDERABLES Final R esult Performing Organization Address City/[facility] Co de Phone Number MICHELET [facility] Department [place] [address] * POCT glucose (11/25/2024 7:37 AM ARMATURE VARNISHER) Pathologist [facility] Glucose, POC 77 70 - 199 mg/dL Blood 11/25/2024 7:37 AM ARMATURE VARNISHER 11/25/2024 7:37 AM ARMATURE VARNISHER Delroy Troncoso MD LAB POCT ORDERABLES - D EVICE Final Result Performing Organization Address City/[facility]/ZIP Co de [place] [address] * (ABNORMAL) eGFR (11/25/2024 5:43 AM ARMATURE VARNISHER) [facility] eGFR 8(L) >=60 mL/min/1. 73 m2 Comment: Interpretive Data Reference Interval Normal >/= 90 mL/min/1.73m2 Mildly decreased* 60 - 89 mL/min/1.73m2 Mildly to moderately decreased 45 - 59 mL/min/1.73m2 Moderately to severely decreased 30 - 44 mL/min/1.73m2 Severely decreased 15 - 29 mL/min/1.73m2 Kidney Failure < 15 mL/min/1.73m2 *Relative to young adult level Estimated glomerular filtration rate is determined by the 2020 CKD-EPI equation recommended by the National Kidney Foundation (A Unifying Approach to GFR Estimation: Recommendations of the NKF-ASK Task Force on Reassessing the Inclusion of Race in Diagnosing Kidney Disease, JASN 2020). The CKD-EPI equation should not be used for patients with unstable renal function and has not been validated in children and those over 70. Current interpretive data was last reviewed 2021. Blood 11/25/2024 5:43 AM ARMATURE VARNISHER 11/25/2024 6:45 AM ARMATURE VARNISHER Delroy Troncoso MD LAB BLOOD ORDERABLES Fi nal Result MICHELET [facility] [place] [address] * Critical Result Callback Chemistry (11/25/2024 5:43 AM ARMATURE VARNISHER) Date Notified [id number] Time Notified 716 MICHELET [facility] TestName Potassium Plas MICHELET JARAMILLO Called/Read Back Maria Isabel Yan MICHELET [facility] Credentials RN MICHELET JARAMILLO Called By hunter JARAMILLO Blood 11/25/2024 5:43 AM ARMATURE VARNISHER 11/25/2024 6:45 AM ARMATURE VARNISHER us Delroy Troncoso MD LAB BLOOD ORDERABLES Fi nal Result [facility] Department of [place] [address] * Blood culture Blood (11/25/2024 5:43 AM ARMATURE VARNISHER) Report Final Report: No growth Blood 11/25/2024 5:43 AM ARMATURE VARNISHER 11/25/2024 7:25 AM ARMATURE VARNISHER N[facility]ative [facility] - 11/29/2024 12:00 PM ARMATURE VARNISHER Collection->Peripheral 1. Blood cultures are incubated for 4 days on a continuously monitored blood culture system. The first report of a negative culture is issued within 24 hours of receipt of the specimen in the laboratory. 2. Positive culture results are reported as soon as they are detected. 3. The most important factor for detection of microbes in the setting of bloodstream infection is the volume of blood submitted for culture. Failure to collect an optimal blood volume can result in false negative blood cultures. 4. For pediatric patients, the recommended blood volume to collect follows a weight based strategy. See the electronic test catalog for collection instructions. 5. For positive blood cultures, a rapid molecular test may be performed for organism identification using the dawson ePlex blood culture identification panel for gram positive (BCID-GP) and gram negative (BCID-GN) organisms. This nucleic acid amplification test detects microbial DNA in positive blood culture broth. This assay has been cleared by the [place] Food and Drug Administration and its performance characteristics have been verified by the [facility] Microbiology Laboratory. For questions about this culture, contact the Microbiology Laboratory at [phone]. Interpretive data was last revised on 24. Delroy Troncoso MD LAB MICROBIOLOGY - GENE RAL ORDERABLES Final Result Performing Organization Address City/[facility]/ZIP Co de Phone Number MICHELET JARAMILLO [facility] Department [place] [address] * Blood culture Blood (11/25/2024 5:43 AM ARMATURE VARNISHER) Report Final Report: No growth Blood 11/25/2024 5:43 AM ARMATURE VARNISHER 11/25/2024 7:25 AM ARMATURE VARNISHER Narrative [facility] - 11/29/2024 12:00 PM ARMATURE VARNISHER Collection->Peripheral 1. Blood cultures are incubated for 4 days on a continuously monitored blood culture system. The first report of a negative culture is issued within 24 hours of receipt of the specimen in the laboratory. 2. Positive culture results are reported as soon as they are detected. 3. The most important factor for detection of microbes in the setting of bloodstream infection is the volume of blood submitted for culture. Failure to collect an optimal blood volume can result in false negative blood cultures. 4. For pediatric patients, the recommended blood volume to collect follows a weight based strategy. See the electronic test catalog for collection instructions. 5. For positive blood cultures, a rapid molecular test may be performed for organism identification using the dawson ePlex blood culture identification panel for gram positive (BCID-GP) and gram negative (BCID-GN) organisms. This nucleic acid amplification test detects microbial DNA in positive blood culture broth. This assay has been cleared by the [place] Food and Drug Administration and its performance characteristics have been verified by the [facility] Microbiology Laboratory. For questions about this culture, contact the Microbiology Laboratory at [phone]. Interpretive data was last revised on 24. Delroy Troncoso MD LAB MICROBIOLOGY - GENE RAL ORDERABLES Final Result Performing Organization Address [facility] Co de Phone Number MICHELET JARAMILLO [facility] [place] [address] * aPTT (11/25/2024 5:43 AM ARMATURE VARNISHER) Pathologist [facility] aPTT 33 28 - 38 sec Comment: Interpretive Data Heparin therapeutic range: 66.0 - 100.0 seconds. Range based on correlation with therapeutic heparin activity range of 0.3 - 0.7 Units/mL. Current interpretive data was last revised on 2023. Blood 11/25/2024 5:43 AM ARMATURE VARNISHER 11/25/2024 7:00 AM ARMATURE VARNISHER Delroy Troncoso MD LAB BLOOD ORDERABLES Fi nal Result Performing Organization Address [facility] de Phone Number [facility] [place] [address] * Protime-INR (11/25/2024 5:43 AM ARMATURE VARNISHER) [facility] PT 12.5 9.7 - 13.0 sec INR 1.15 0.90 - 1.20 [facility] Comment: Interpretive data Oral anticoagulant therapeutic ranges: Venous thromboembolism prophylaxis or treatment: 2.0-3.0 CARDIOLOGY Standard range: 2.0-3.0 High-intensity range: 2.5-3.5 Refer to indication-specific guidelines for appropriate target ranges for prosthetic heart valve replacement. Current interpretive data was last revised on 2019. Blood 11/25/2024 5:43 AM ARMATURE VARNISHER 11/25/2024 7:00 AM ARMATURE VARNISHER Delroy Troncoso MD LAB BLOOD ORDERABLES Fi nal Result Performing Organization Address [facility] Co de Phone Number [facility] [place] [address] * (ABNORMAL) CBC without differential (11/25/2024 5:43 AM ARMATURE VARNISHER) [facility] WBC 5.3 3.8 - 9.9 K/cumm Hgb 9.2(L) 11.9 - 15.5 g/dL [facility] Hct 29.7(L) 35.6 - 45.5 % [facility] Plt 172 150 - 400 K/cumm [facility] MPV 9.8 9.1 - 12.3 fL [facility] RBC 3.20(L) 3.90 - 5.20 M/cumm [facility] MCV 92.8 81.3 - 96.4 fL [facility] MCH 28.8 27.1 - 33.3 pg [facility] MCHC 31.0(L) 32.3 - 35.7 g/dL [facility] RDW CV 17.6(H) 11.1 - 14.9 % [facility] RDW SD 59.6(H) 35.7 - 48.1 fL [facility] NRBC abs 0.00 0.00 - 0.01 K/cumm [facility] Blood 11/25/2024 5:43 AM ARMATURE VARNISHER 11/25/2024 6:45 AM ARMATURE VARNISHER Delroy Troncoso MD LAB BLOOD ORDERABLES Fi nal Result Performing Organization Address City/[facility]/ZIP Co de Phone Number [facility] Department [place] [employer] [place] [address] * Type and screen (11/25/2024 5:43 AM ARMATURE VARNISHER) Pathologist [facility] ABO Rh B Positive Radha, indirect Negative [facility] Blood 11/25/2024 5:43 AM ARMATURE VARNISHER 11/25/2024 6:50 AM ARMATURE VARNISHER Narrative [facility] - 11/25/2024 7:53 AM ARMATURE VARNISHER Has the patient had Daratumumab or Isatuximab in the past 6 months?->Unknown Delroy Troncoso MD LAB BLOOD BANK TEST ORD ERABLES Final Result Performing Organization Address City/[facility]/ZIP Co de Phone Number [facility] Department [place] [place] [address] * (ABNORMAL) Comprehensive metabolic panel (11/25/2024 5:43 AM ARMATURE VARNISHER) Pathologist [facility] Sodium 134(L) 135 - 145 mmol/L Potassium, pl 6.8(C) 3.3 - 4.9 mmol/L [facility] Comment:Hemolyzed; Potassium value may be falsely elevated by as much as 0.3-0.5 mmol/L. Suggest redraw and reanalysis. Chloride 107 97 - 110 mmol/L [facility] CO2 24 22 - 32 mmol/L [facility] Anion gap 3 2 - 15 mmol/L [facility] BUN 22 6 - 25 mg/dL [facility] Creatinine 5.64(H) 0.60 - 1.10 mg/dL [facility] Glucose 61(L) 70 - 199 mg/dL [facility] Comment: Interpretive Data Fasting glucose >/= 126 mg/dl is diagnostic for diabetes. Fasting is defined as no caloric intake for at least 8 hours. Fasting glucose between 100 mg/dl to 125 mg/dl is diagnostic of prediabetes. In a patient with classic symptoms of hyperglycemia or hyperglycemic crisis, a random glucose >/= 200 mg/dl is diagnostic for diabetes. In the absence of unequivocal hyperglycemia, results should be confirmed by repeat testing. The classification and Diagnosis of Diabetes Diabetes Care 202; 46: S19-S40. Current interpretive data was last revised 2022. Calcium 8.8 8.5 - 10.3 mg/dL [facility] Bilirubin, total 0.6 0.1 - 1.2 mg/dL [facility] Protein, pl 8.1 6.5 - 8.5 g/dL [facility] Albumin 2.5(L) 3.5 - 5.0 g/dL [facility] Alk phos 135(H) 40 - 130 Units/L [facility] ALT 17 7 - 45 Units/L [facility] AST 28 10 - 45 Units/L [facility] Comment:Hemolyzed; result ma y be falsely elevated Blood 11/25/2024 5:43 AM ARMATURE VARNISHER 11/25/2024 6:45 AM ARMATURE VARNISHER us Delroy Troncoso MD LAB BLOOD ORDERABLES Fi nal Result [facility] Department [place] [address] * X-ray chest 1 view (Portable) (11/25/2024 4:44 AM ARMATURE VARNISHER) Anatomical Region Laterality Modality Body, Chest N/A Computed Radiogr aphy 11/25/2024 10:4 0 AM ARMATURE VARNISHER Impressions 11/25/2024 1:52 PM ARMATURE VARNISHER FINDINGS/IMPRESSION: Left upper extremity vascular stent present. Lungs are clear. No pleural effusion. No pneumothorax. Cardiomediastinal silhouette is within normal limits, stable from prior. Dictated by: Gunnar Wise MD The radiology attending physician has personally reviewed this study, and had reviewed and/or edited this written report and agrees with it. Electronically signed by: Shun Gamboa M.D. Narrative 11/25/2024 1:52 PM ARMATURE VARNISHER EXAMINATION: XR CHEST 1 VIEW HISTORY: Pleural effusion COMPARISON: X-ray from 11/28/2023 Procedure Note Shun Gamboa MD - 11/25/2024 EXAMINATION: XR CHEST 1 VIEW HISTORY: Pleural effusion COMPARISON: X-ray from 11/28/2023 IMPRESSION: FINDINGS/IMPRESSION: Left upper extremity vascular stent present. Lungs are clear. No pleural effusion. No pneumothorax. Cardiomediastinal silhouette is within normal limits, stable from prior. Dictated by: Gunnar Wise MD The radiology attending physician has personally reviewed this study, and had reviewed and/or edited this written report and agrees with it. Electronically signed by: Shun Gamboa M.D. Delroy Troncoso MD IMG XR PROCEDURES Final Result * Hepatitis C antibody Blood (11/28/2023 1:19 PM ARMATURE VARNISHER) Hep C Ab Nonreactive Nonreactive [facility]HELET JARAMILLO Comment:Antibodies to HCV no t detected. Does NOT exclude the possibility of recent exposure to HCV. Current interpretive data was last revised on 22 Blood 11/28/2023 1:19 PM ARMATURE VARNISHER 11/28/2023 2:18 PM ARMATURE VARNISHER us Rachael Piña MD LAB MICROBIOLOGY - GENERAL ORDER CHERI Final Result [facility]da [facility] [place] [address] * Diagnostic Mammogram (07/06/2021 1:40 PM CDT) Anatomical Region Laterality Modality Breast Mammography Impressions 07/06/2021 1:40 PM CDT BIRADS 1: Assessment complete. Negative. Recommend annual screening mammography. Narrative 07/06/2021 1:40 PM CDT FINDINGS: The previously identified asymmetric density presses out into normal appearing fibroglandular tissue. No other asymmetries, suspicious calcifications, or architectural distortion are seen. Historical Provider IMG MAMMO PROCEDURES Sarah l Result from Last 3 Months or Most Recently Relevant to Health Maintenance Insurance MEDICARE [facility] CHOICE TRANSPLANT [employer] [facility] MEDICARE MEDICARE [facility] ACCESS CHOICE MEDICARE [facility] [employer] [facility] MEDICARE [facility] CHOICE PLUS Advance Directives For more information, please contact: [phone] * Full Code (Latest Code Status on File) Date Activated Date Inactivated Comments 12/04/2024 2:02 PM 12/12/2024 9:00 PM * Full Code Date Activated Date Inactivated Comments 11/25/2024 12:19 AM 12/04/2024 2:02 PM * Full Code Date Activated Date Inactivated Comments 04/07/2021 11:48 PM 04/14/2021 11:25 PM * Full Code Date Activated Date Inactivated Comments 03/11/2021 1:56 PM 03/12/2021 7:51 PM * Full Code Date Activated Date Inactivated Comments 06/03/2020 11:27 AM 06/09/2020 5:41 PM Care Teams Ski Top Trimmer Relationship Specialty Start Date End Date Shun Germain DO [facility] [address] [place] [id number] PCP - General Internal Medicine 02/06/25 Edwardo Swain MD [address] [facility] [address] [place] [address] Referring Physician Nephrology 09/04/18 Kerri Rodriguez, RN Flooring Salesperson 10/05/20 Meri Valdez, RN [address] [facility] [address] [place] [address] Registered Nurse Flooring Salesperson 06/03/21 Vj Oreilly MD [id number] [place] [address] Consulting Physician Cardiothoracic Surgery 12/12/24 Miscellaneous, Not In File 12/12/24
--- OUTSIDE RECORDS SUMMARY | 2025-02-21 00:28 | XMS_ITS | Clinical Summary ---
Author Organization [facility] al Address [address] [place] [address] Care Team Providers Care Gunner'S Mate M Name Role Phone Edwardo Swain MD Unavailable [phone] Kerri Rodriguez RN Unavailable [phone] Meri Valdez RN Unavailable [phone] Vj Oreilly MD Unavailable Miscellaneous, Not In File Unavailable Unava ilable Shun Germain DO Primary Care Provider [phone] Allergies Active Allergy Reactions Criticality Noted Date [...] ed(Alterna te therapy) 0.9 % sodium chloride ([facility] sodium chloride 0.9%) injectionIndic ations:Line care [...] the original. Verbal Consent: Katelynn (mother) Specialty: Joselo Labs: [facility] in [place] [phone] q-bi-weekly, FK, q-monthly, BK, UPE; q3-Routine. HH: Did not have a preference. List was provided. Problem Noted Date Diagnosed Date Encounter for screening exam ination for sexually transmitted disease 12/31/2024 Bacterial endocarditis 12/31/2024 Bacteremia due to Enterococcus 12/31/2024 Assessment & Plan (12/31/2024 8:52 AM PROJECT MANAGEMENT ENGINEER): KALEN 11/27/24 showed anterior MV leaflet vegetation [...] 11/29/2024 Assessment & Plan (12/07/2024 1:04 PM PROJECT MANAGEMENT ENGINEER): S/p radical debridement and reconstruction mitral valve [...] >50%. Assessment & Plan (12/01/2024 11:53 AM PROJECT MANAGEMENT ENGINEER): Pre-OP MV repair/replacement Dr. Troncoso to discuss with Dr. Oreilly and determine an OR plan Assessment & Plan (11/30/2024 11:12 AM PROJECT MANAGEMENT ENGINEER): Pre-OP MV repair/replacement Dr. Troncoso to discuss with Dr. Oreilly and determine an OR plan Moderate protein-calorie malnutrition 11/27/2024 Assessment & Plan (12/08/2024 1:26 PM PROJECT MANAGEMENT ENGINEER): BMI 22.66 Daily weights Encourage PO intake Seen by signal apprentice Tisha plant based caloric supplements Vegan/renal diet Assessment & Plan (12/01/2024 11:52 AM PROJECT MANAGEMENT ENGINEER): Daily weights Encourage PO intake Seen by signal apprentice Added supplements Vegan/renal diet Assessment & Plan (11/30/2024 11:11 AM PROJECT MANAGEMENT ENGINEER): Daily weights Encourage PO intake Seen by signal apprentice Added supplements Vegan/renal diet Allergy to ampicillin 11/26/2024 Assessment & Plan (12/02/2024 2:30 PM PROJECT MANAGEMENT ENGINEER): S/p Antibiotic dose challenge-no reaction Continue Ampicillin 2 Gm q 12 Assessment & Plan (12/01/2024 11:52 AM PROJECT MANAGEMENT ENGINEER): S/p Antibiotic dose challenge-no reaction Continue Ampicillin 2 Gm q 12 Assessment & Plan (11/29/2024 1:21 PM PROJECT MANAGEMENT ENGINEER): S/p Antibiotic dose challenge-no reaction Continue Ampicillin 2 Gm q 12 Assessment & Plan (11/27/2024 1:29 PM PROJECT MANAGEMENT ENGINEER): Consult Allergy Team to perform a abx challenge Waiting to hear from ID on appropriate dosing Assessment & Plan (11/26/2024 3:04 PM PROJECT MANAGEMENT ENGINEER): Consult Allergy Team to perform a abx challenge Waiting to hear from ID on appropriate dosing Endocarditis 11/25/2024 Assessment & Plan (12/09/2024 11:42 AM PROJECT MANAGEMENT ENGINEER): - admitted from OSH for complains of [...] today Assessment & Plan (12/01/2024 11:52 AM PROJECT MANAGEMENT ENGINEER): - admitted from OSH for complains of [...] function. Assessment & Plan (11/29/2024 1:19 PM PROJECT MANAGEMENT ENGINEER): - admitted from OSH for complains of [...] function. Assessment & Plan (11/27/2024 1:29 PM PROJECT MANAGEMENT ENGINEER): - admitted from OSH for complains of [...] date Assessment & Plan (11/26/2024 3:06 PM PROJECT MANAGEMENT ENGINEER): - admitted from OSH for complains of [...] 11/25/2024 Assessment & Plan (12/02/2024 2:31 PM PROJECT MANAGEMENT ENGINEER): - history of hyperlipidemia - continue Atorvastatin - low fat, low cholesterol diet Assessment & Plan (12/01/2024 11:52 AM PROJECT MANAGEMENT ENGINEER): - history of hyperlipidemia - continue statin - low fat, low cholesterol diet Assessment & Plan (11/30/2024 11:13 AM PROJECT MANAGEMENT ENGINEER): - history of hyperlipidemia - continue statin - low fat, low cholesterol diet Assessment & Plan (11/27/2024 1:33 PM PROJECT MANAGEMENT ENGINEER): - history of hyperlipidemia - continue statin - low fat, low cholesterol diet Assessment & Plan (11/25/2024 4:23 PM PROJECT MANAGEMENT ENGINEER): - history of hyperlipidemia - continue statin - low fat, low cholesterol diet Failed kidney transplant 11/25/2024 Assessment & Plan (12/06/2024 2:39 PM PROJECT MANAGEMENT ENGINEER): - Patient underwent kidney transplant last 2018 - Transplant failed on 2020, resumed HD (MWF) - Right upper arm AV fistula - continue Prednisone - continue Tacrolimus 1 mg BID - check Tacrolimus level q am - Kidney transplant team following w/ HD services Monitor daily BMP Assessment & Plan (12/01/2024 11:52 AM PROJECT MANAGEMENT ENGINEER): - Patient underwent kidney transplant last 2018 - Transplant failed on 2020 and patient back to HD (MWF) - Right upper arm AV fistula - continue Prednisone - continue Tacrolimus 1 mg BID with daily Tacrolimus level - Kidney transplant following Assessment & Plan (11/29/2024 1:11 PM PROJECT MANAGEMENT ENGINEER): - Patient underwent kidney transplant last 2018 - Transplant failed on 2020 and patient back to HD (MWF) - Right upper arm AV fistula - continue Prednisone - continue Tacrolimus 1 mg BID with daily Tacrolimus level - Kidney transplant following Assessment & Plan (11/27/2024 1:33 PM PROJECT MANAGEMENT ENGINEER): - Patient underwent kidney transplant last 2018 - Transplant failed on 2020 and patient back to HD (MWF) - Right upper arm AV fistula - continue prednisone - continue tacrolimus 1 mg BID with daily tacrolimus level - Kidney transplant following Assessment & Plan (11/25/2024 4:30 PM PROJECT MANAGEMENT ENGINEER): - Patient underwent kidney transplant last 2018 [...] 2:16 PM CDT): No symptoms today, s/p MARKETING ADMIN therapy. Assessment & Plan (01/29/2020 11:22 AM CDT): / UCx +E.coli. 01/20 BCx NGTD. - Cont CTX 2g q24h, plan for 3 weeks abx per ID - No drainable fluid collection per IR/transplant surgery - Lashonda in place - Home with home IV infusion for IV Abx Assessment & Plan (01/28/2020 11:39 AM CDT): / UCx +E.coli. 01/20 BCx NGTD. - Cont [...] 01/20/2020 Assessment & Plan (12/08/2024 1:29 PM PROJECT MANAGEMENT ENGINEER): Combined anemia of chronic disease and ABLA [...] (12/10/2019): Added automatically from request for surgery [id number] Assessment & Plan (01/29/2020 11:21 AM CDT): [...] (12/10/2019): Added automatically from request for surgery [id number] Assessment & Plan (04/02/2020 3:01 PM CDT): [...] (02/18/2019): Added automatically from request for surgery [id number] ESRD (end stage renal disease) 12/31/2018 Overview (12/31/2018): Added automatically from request for surgery [id number] Assessment & Plan (12/06/2024 2:39 PM PROJECT MANAGEMENT ENGINEER): - History of ESRD secondary to SLE - also failed kidney transplant, on the list now for another kidney, continue Tacrolimus - continue HD MWF - Nephrology following - Monitor daily BMP Assessment & Plan (12/01/2024 11:52 AM PROJECT MANAGEMENT ENGINEER): - History of ESRD secondary to SLE - continue HD MWF - Nephrology following - Monitor daily BMP Assessment & Plan (11/29/2024 1:12 PM PROJECT MANAGEMENT ENGINEER): - History of ESRD secondary to SLE - continue HD MWF - Nephrology following - Monitor daily BMP Assessment & Plan (11/27/2024 1:33 PM PROJECT MANAGEMENT ENGINEER): - History of ESRD secondary to SLE - continue HD MWF - Renal following Assessment & Plan (11/25/2024 4:26 PM PROJECT MANAGEMENT ENGINEER): - History of ESRD secondary to SLE - continue HD MWF - Renal following Renal osteodystrophy 10/07/2018 Stage 5 chronic kidney disease 09/11/2017 Overview (02/14/2020): Overview: Quality Assurance Tester = Dr. 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 Hypertension 12/16/2012 Assessment & Plan (12/07/2024 1:04 PM PROJECT MANAGEMENT ENGINEER): - VS q 4h - low sodium diet - continue Coreg 3.125 mg po bid-titrate to response - monitor for further antihypertensive need Assessment & Plan (12/01/2024 11:52 AM PROJECT MANAGEMENT ENGINEER): - VS q 4h - continue Coreg 25 mg po bid - continue Doxazosin and Nifedipine - low sodium diet - hold Diltiazem for low HR Assessment & Plan (11/29/2024 1:10 PM PROJECT MANAGEMENT ENGINEER): - VS q 4h - continue Coreg 25 mg po bid - continue Doxazosin and Nifedipine - low sodium diet - hold Diltiazem for low HR Assessment & Plan (11/27/2024 1:33 PM PROJECT MANAGEMENT ENGINEER): - continue carvedilol daily - continue doxazosin and nifedipine - low sodium diet - hold diltiazem for low HR Assessment & Plan (11/25/2024 4:25 PM PROJECT MANAGEMENT ENGINEER): - continue carvedilol daily - continue doxazosin and nifedipine - low sodium diet - hold diltiazem for low HR Systemic lupus erythematosus , organ or system involvement unspecified 12/16/2012 Resolved Problems Problem Noted Date Diagnosed Date Resolved Date Sepsis 01/20/2020 01/27/2020 Essential hypertension 12/17/201901/26 Encounters Date Type Department Care Team Description 02/10/2025 Telephone [facility] Transplant Kidney [address] [facility] [address] Mailop [phone] [place] [address] Meri Valdez RN 02/10/2025 Telephone [facility] Transplant Kidney [address] [facility] [address] Mailstop [phone] [place] [address] Chiara Rahman 02/06/2025 1:00 PM CDT Office Visit [facility] Cardiology [address] [place] [address] Carmita Clayton NP S/P MVR (mitral valve repair); End-stage renal disease on hemodialysis (HCC); History of anemia due to chronic kidney disease; Hospital discharge follow-up 01/30/2025 Telephone [facility] Cardiothoracic Surgery [address] [facility] 8th Floor [address] Room [address] [address] Eusebio Lackeyylee 01/22/2025 Telephone [facility] Cardiothoracic Surgery [address] [facility] 8th Floor [address] Room [address] [place] [address] ZiyadEusebioTaty 01/17/2025 Telephone [facility] Cardiothoracic Surgery [address] [facility] Advanced [facility] 8th Floor [address] Room [address] [address] Jennifer Montanez NP 01/17/2025 Documentation [facility] Cardiothoracic Surgery [address] [facility] 8th Floor [address] Room [address] [place] [phone] Jennifer Montanez NP 01/16/2025 5:24 PM CDT - 01/16/2025 11:59 PM CDT Hospital Encounter [facility] [address] [place] [address] S/P MVR (mitral valve repair) Discharge Disposition: Discharge to home or self care 01/16/2025 4:15 PM CDT - 01/16/2025 11:59 PM CDT Hospital Encounter [facility] Cardiac Diagnostic Lab [address] [address] Bacteremia due to Enterococcus Discharge Disposition: Discharge to home or self care 01/16/2025 1:00 PM CDT Office Visit [facility] Radiology, Interventional Radiology [address] [facility] [address] [place] [address] Tiffanie Wall PA Bacteremia due to Enterococcus (Primary Dx); Acute bacterial endocarditis; Central venous catheter in place 01/16/2025 8:15 AM CDT Home Care Visit [place] [address] [address] [place] [address] Tiffanie Mauricio RN SN OASIS DISCHARGE 01/16/2025 Documentation [facility] Infectious Diseases [address] [facility] [address] [place] [phone] Jessica Montenegro Progress/Monitoring 01/15/2025 Telephone [facility] Cardiology [address] [facility] 8th [place] [address] [place] [address] Venecia Tracy J. 01/14/2025 1:31 PM CDT - 01/14/2025 11:59 PM CDT Hospital Encounter [address] [address] Discharge Disposition: Discharge to home or self care 01/14/2025 11:00 AM CDT Office Visit [facility] Surgery [address] [facility] [address] [place] [address] Vj Oreilly MD Bacteremia due to Enterococcus (Primary Dx); S/P MVR (mitral valve repair) 01/14/2025 Telephone [facility] Cardiothoracic Surgery [address] [facility] 8th Floor [address] Room [phone] [place] [address] Taty Lackey 01/13/[address] [facility] Home Care Services [address] [place] [address] [address] [place] [address] Sia Chris, [facility] 01/09/2025 Documentation [facility] Infectious Diseases [address] [place] [address] [address] [place] [address] Adali Last Progress/Monitoring 01/07/2025 6:10 PM CDT - 01/07/2025 11:59 PM CDT Hospital Encounter [address] [address] Discharge Disposition: Discharge to home or self care 01/07/2025 10:45 AM CDT Home Care Visit [place] [address] [address] [place] [address] Mara Clarke RN SN HOME VISIT 01/07/2025 9:00 AM CDT Home Care Visit [address] [place] [address] Mario Cleveland, OT OT INITIAL EVALUATION 01/06/2025 Telephone [facility] Radiology, Interventional Radiology [address] [facility] [address] [place] [address] Sia Mckeon, RN Appointment 01/06/2025 Orders Only [facility] Infectious Diseases [address] [facility] [address] [place] [address] Irina Jane NP Bacteremia due to Enterococcus (Primary Dx); Acute bacterial endocarditis 01/03/2025 Documentation [facility] Infectious Diseases [address] [facility] [address] [place] [address] Adali Last Progress/Monitoring 01/02/2025 Home Care Visit [address] [place] [address] Mario Cleveland OT TELEPHONE ENCOUNTER 12/31/2024 2:59 PM PROJECT MANAGEMENT ENGINEER - 12/31/2024 11:59 PM PROJECT MANAGEMENT ENGINEER Hospital Encounter [address] [address] Discharge Disposition: Discharge to home or self care 12/31/2024 1:15 PM PROJECT MANAGEMENT ENGINEER Home Care Visit [address] [place] [address] Mara Clarke RN SN OASIS START OF CARE 12/31/2024 Plan of Care Documentation [address] [place] [address] [address] [place] [address] 12/31/2024 Documentation [facility] Infectious Diseases [address] [facility] [address] [place] [address] Adali Last Progress/Monitoring 12/30/2024 2:40 PM PROJECT MANAGEMENT ENGINEER Office Visit [facility] Infectious Diseases [address] [facility] [address] [place] [address] Irina Jane NP Bacteremia due to Enterococcus (Primary Dx); Encounter for screening examination for sexually transmitted disease; Kidney transplant recipient; Acute bacterial endocarditis 12/30/2024 Telephone [facility] Infectious Diseases [address] [facility] [address] [place] [address] Adali Last 12/30/2024 Home Care Visit [address] [place] [phone] Meryl Todd RN SN NON OASIS DISCHARGE 12/27/2024 Documentation [facility] Infectious Diseases [address] [facility] [address] [place] [address] Adali Last Progress/Monitoring 12/25/2024 Telephone [facility] Cardiothoracic Surgery [address] [facility] 8th Floor [address] Room [address] [place] [phone] Taty Lackey 12/25/2024 Telephone [facility] Cardiothoracic Surgery [address] [facility] 8th Floor [address] Room [address] [place] [phone] Jennifer Montanez NP 12/24/2024 1:45 PM PROJECT MANAGEMENT ENGINEER - 12/24/2024 11:59 PM PROJECT MANAGEMENT ENGINEER Hospital Encounter [facility] [address] [place] [address] Discharge Disposition: Discharge to home or self care 12/24/2024 10:30 AM PROJECT MANAGEMENT ENGINEER Home Care Visit [address] [place] [phone] Durga Wade RN SN HOME VISIT 12/24/2024 Home Care Visit [address] [place] [address] Maria Isabel Carrillo, DAMIAN TELEPHONE ENCOUNTER 12/20/2024 Documentation [facility] Infectious Diseases [address] [address] Adali Last Progress/Monitoring 12/17/2024 1:56 PM PROJECT MANAGEMENT ENGINEER - 12/17/2024 11:59 PM PROJECT MANAGEMENT ENGINEER Hospital Encounter [facility] [address] [place] [phone] Discharge Disposition: Discharge to home or self care 12/17/2024 12:30 PM PROJECT MANAGEMENT ENGINEER [facility] [address] [facility] [address] [place] [address] Durga Wade RN SN HOME VISIT 12/13/2024 2:00 PM PROJECT MANAGEMENT ENGINEER [facility] [address] [facility] [address] [place] [address] Josef Boyd, FRANCHESCA SN NON OASIS START OF CARE 12/13/2024 Plan of Care Documentation [facility] [address] [facility] [address] [place] [address] 12/13/2024 Documentation [facility] Infectious Diseases [address] [facility] [address] [place] [address] Adali Last Opat Progress/Monitoring 12/12/[address] [facility] Home Care Services [address] [facility] [address] [place] [address] Vickey Sauer, [facility] 12/10/2024 Documentation [facility] Infectious Diseases [address] [facility] [address] [place] [phone] Shala Castillo NP OPAT 12/09/2024 Telephone [facility] Radiology [facility] [address] [place] [address] Courtney Keenan RN 12/04/2024 8:00 AM PROJECT MANAGEMENT ENGINEER Ancillary Procedure [facility] Operating Room 1 [place] [address] 12/04/2024 8:00 AM PROJECT MANAGEMENT ENGINEER - 12/04/2024 2:55 PM PROJECT MANAGEMENT ENGINEER Surgery [facility] Operating Room [address] [place] [address] Vj Oreilly MD REPAIR MITRAL VALVE radial valuoplasty and debridement 12/04/2024 7:56 AM PROJECT MANAGEMENT ENGINEER Anesthesia Event [facility] Operating Room 1 [place] [address] Fernando Chow MD PhD Davida Calixto NP 12/02/2024 9:48 AM PROJECT MANAGEMENT ENGINEER - 12/02/2024 11:13 AM PROJECT MANAGEMENT ENGINEER Surgery [facility] Heart [facility]ascular Center [address] [place] [address] Jeramie José MD LEFT HEART CATHETERIZATION WITH NO CORONARY ANGIOGRAPHY WITH AND WITHOUT LEFT VENTRICULOGRAM [id number] 12/02/2024 Documentation [facility] and [facility] Transplant Kidney [address] [facility] [address] Mailstop [phone] [place] [address] Yanira Gonzalez Appointment/Schedules 12/02/2024 Documentation [facility] and [facility] Transplant Kidney [address] [facility] [address] Mailstop [phone] [place] [address] Meri Valdez RN cancel testing 11/27/2024 11:54 AM PROJECT MANAGEMENT ENGINEER Anesthesia Event [facility] Heart [facility] Vascular [address] [address] Troy Bermeo MD Silver, Kate Elizabeth, CRNA 11/25/[address] [facility] Cardiology [address] [place] [address] Anamika Peterson MD 11/24/2024 11:20 PM PROJECT MANAGEMENT ENGINEER - 12/12/2024 4:45 PM PROJECT MANAGEMENT ENGINEER Hospital Encounter [address] [address] Delroy Troncoso MD Roberts, Harold Gene, MD S/P MVR (mitral valve repair) (Primary Dx); Subacute bacterial endocarditis [I33.0]; Allergy to ampicillin; Severe mitral regurgitation Discharge Disposition: Discharge to home, home health skilled care from Last 3 Months Surgical History Surgery Date Site/Laterality Comments OTHER SURGICAL HISTORY 10/30/2006 - 10/29/2007 right tubal and left oophorectomy HYSTERECTOMY AV FISTULA PLACEMENT Left OVARIAN CYST REMOVAL KIDNEY TRANSPLANT 09/15/2019 Right CENTRAL LINE PLACEMENT > 5 YEARS 12/12/2019 N/A CENTRAL LINE PLACEMENT > 5 YEARS 01/24/2020 N/A US GUIDED BIOPSY RENAL 06/03/2020 N/A US GUIDED BIOPSY RENAL 03/11/2021 N/A CENTRAL LINE PLACEMENT > 5 YEARS 12/09/2024 N/A CARDIAC CATHETERIZATION 12/02/2024 Groin/N/A Procedure: LEFT HEART CATHETERIZATION WITH NO CORONARY ANGIOGRAPHY WITH AND WITHOUT LEFT VENTRICULOGRAM [id number]; Surgeon: Jeramie José MD; Location: [facility]; Service: Cardiovascular; Laterality: N/A; ORGAN TRANSPLANT Medical History Medical History Date Comments Lupus ESRD (end stage renal disease) (HCC) Hypertension Hyperlipidemia History of transfusion Autoimmune disease Sickle cell anemia (HCC) Family History Medical History Relation Name Comments Lupus Cousin Systemic lupus erythematosus; Diabetes Father Heart disease Father Heart failure Father Family history of congestive heart failure - (Added by TW Conv) Hypertension Father Family history of hypertension - (Added by TW Conv) Kidney disease Father Stroke Father Family history of cerebrovascular accident (CVA) - (Added by TW Conv) Hypertension Mother Family history of hypertension - (Added by TW Conv) Relation Name Status Comments Cousin Father Mother Social History Tobacco Use Types Packs/Day Years [...] week 10/06/2021 How often do you attend [facility] or mu-ism services? More than 4 times per year 10/06/2021 Do you belong to any clubs o r organizations such as sabianism groups, unions, fraternal or athletic groups, or [...] place to sleep or slept in a alf (including now)? No 10/06/2021 Personal Safety Answer Date Recorded Have you ever been in or are you currently in a harmful physical or emotional relationship or is someone making you feel afraid or unsafe? Denies 12/04/2024 Comments No Sex and Gender Information Value Date Recorded Sex Assigned at Not on file Legal Sex Female 2:49 AM PROJECT MANAGEMENT ENGINEER Gender Identity Female 02/26/2020 11:09 AM CDT Sexual Orientation Choose not to disclose 2019 11:10 AM CDT Sexual Orientation Straight 02/26/2020 11 :10 AM CDT Obstetrics History Last Filed Vital Signs Vital Sign Reading [...] 02/06/2025 1:14 PM CDT Plan of Treatment Health Maintenance Due Date Last Done Comments Colon Cancer Screening-Colonoscopy 1971 Depression Screening 1971 DTaP/Tdap/Td Vaccine (1 - Tdap) 1982 Regular Well Visit/Exam 18-64 1989 Pneumococcal vaccine <65 (1 of 2 - PCV) 1990 Zoster Vaccine (1 of 2) 1990 Breast Cancer Screening-Mammogram 07/06/2022 021 Covid-19 Vaccine (4 - 2023-2 5 season) 2024 07/25/2021, 06/27/2021, 06/06/2021 Influenza Vaccine (Season Ended) 2025 Hepatitis C Screening Completed 11/28/2023 , 11/22/2022, 08/24/2021, Additional history exists Hepatitis B Screening Completed 11/25/2024 , 04/03/2024, 04/12/2023 Medical Devices Implanted Type Area Cable Splicer Device Identifier Shelf Expiration Date Model / Serial / Lot [employer] Stu-Huber ds Physio Ii 24mm Gomes Sew Mitral Ring [id number] - [id number] - [id number] Implanted:Qty: 1 on 12/04/2024 by Vj Oreilly MD at [facility] N/A: Mitral Valve [employer] [id number] 11/03/2026 [id number] / [id number] / [employer] Sternalock 360 Sternal Closure 74-0004 - [id number] Implanted:Qty: 1 on 12/04/2024 by Vj Oreilly MD at [facility] N/A: Chest [employer] 09/25/2028 [id number] / / [employer] Sternalock Rodrigo 2.4mm 12mm Self Drill Lock Sternum Cancellous 73-2412 - [id number] Implanted:Qty: 4 on 12/04/2024 by Bernardo Rubio MD at [facility] N/A: Sternum [employer] [id number] / / [employer] Sternalock Rodrigo 2.4mm 14mm Self Drill Lock Sternum Cancellous 73-2414 - [id number] Implanted:Qty: 4 on 12/04/2024 by Bernardo Rubio MD at [facility] N/A: Sternum [employer] [id number] / / [employer] Sternalock Rodrigo 2.4mm 16mm Self Drill Lock Sternum Cancellous 73-2416 - [id number] Implanted:Qty: 8 on 12/04/2024 by Bernardo Rubio MD at [facility] N/A: Sternum [employer] [id number] / / Explanted Type Area Cable Splicer Device Identifier Shelf Expiration Date Model / Serial / Lot [email or web address] [id number] 3.7fr 20cm 70cm Catheter Radiopaque Positioner Guidewire Ureter - [id number] Implanted:Qty: 1 on 09/15/2019 by Obi Rivas MD at [facility] Explanted:Qty: 1 on 10/15/2019 by Malinda Hebert NP Stent Right: Ureter [employer] 05/15/2021 [id number] / / Description:Transplanted kid reyna ureter Procedures Procedure Name Priority Date/Time Associated [...] AM CDT EGFR Routine 12/31/2024 10:35 AM PROJECT MANAGEMENT ENGINEER DIFFERENTIAL AUTO Routine 12/31/2024 10:35 AM PROJECT MANAGEMENT ENGINEER CBC WITH AUTO DIFFERENTIAL Routine 12/31/2024 10:35 AM PROJECT MANAGEMENT ENGINEER GLUCOSE, RANDOM (OUTREACH) Routine 12/31/2024 10:35 AM PROJECT MANAGEMENT ENGINEER COMPREHENSIVE METABOLIC PANEL WITHOUT GLUCOSE (OUTREACH) Routine 12/31/2024 10:35 AM PROJECT MANAGEMENT ENGINEER EGFR Routine 12/24/2024 1:45 PM PROJECT MANAGEMENT ENGINEER DIFFERENTIAL AUTO Routine 12/24/2024 1:4 5 PM PROJECT MANAGEMENT ENGINEER CBC WITH AUTO DIFFERENTIAL Routine 12/24/2024 1:45 PM PROJECT MANAGEMENT ENGINEER GLUCOSE, RANDOM (OUTREACH) Routine 12/24/2024 1:45 PM PROJECT MANAGEMENT ENGINEER COMPREHENSIVE METABOLIC PANEL WITHOUT GLUCOSE (OUTREACH) Routine 12/24/2024 1:45 PM PROJECT MANAGEMENT ENGINEER EGFR Routine 12/17/2024 11:00 AM PROJECT MANAGEMENT ENGINEER DIFFERENTIAL AUTO Routine 12/17/2024 11:00 AM PROJECT MANAGEMENT ENGINEER CBC WITH AUTO DIFFERENTIAL Routine 12/17/2024 11:00 AM PROJECT MANAGEMENT ENGINEER GLUCOSE, RANDOM (OUTREACH) Routine 12/17/2024 11:00 AM PROJECT MANAGEMENT ENGINEER COMPREHENSIVE METABOLIC PANEL WITHOUT GLUCOSE (OUTREACH) Routine 12/17/2024 11:00 AM PROJECT MANAGEMENT ENGINEER HEPATIC FUNCTION PANEL Routine 12/11/2024 9:51 PM PROJECT MANAGEMENT ENGINEER DIFFERENTIAL AUTO Routine 12/11/2024 9:5 1 PM PROJECT MANAGEMENT ENGINEER EGFR Routine 12/11/2024 9:51 PM PROJECT MANAGEMENT ENGINEER PHOSPHORUS Routine 12/11/2024 9:51 PM PROJECT MANAGEMENT ENGINEER MAGNESIUM Routine 12/11/2024 9:51 PM PROJECT MANAGEMENT ENGINEER CBC WITHOUT DIFFERENTIAL Routine 12/11/2024 9:51 PM PROJECT MANAGEMENT ENGINEER BASIC METABOLIC PANEL Routine 12/11/2024 9:51 PM PROJECT MANAGEMENT ENGINEER CBC WITHOUT DIFFERENTIAL STAT 12/10/2024 9:24 PM PROJECT MANAGEMENT ENGINEER TYPE AND SCREEN Timed 12/10/2024 8:34 PM PROJECT MANAGEMENT ENGINEER EGFR Routine 12/10/2024 8:31 PM PROJECT MANAGEMENT ENGINEER PHOSPHORUS Routine 12/10/2024 8:31 PM PROJECT MANAGEMENT ENGINEER MAGNESIUM Routine 12/10/2024 8:31 PM PROJECT MANAGEMENT ENGINEER CBC WITHOUT DIFFERENTIAL Routine 12/10/2024 8:31 PM PROJECT MANAGEMENT ENGINEER BASIC METABOLIC PANEL Routine 12/10/2024 8:31 PM PROJECT MANAGEMENT ENGINEER INFECTION PREVENTION LEIDY AURIS PCR, SURVEILLANCE Routine 12/10/2024 6:41 PM PROJECT MANAGEMENT ENGINEER HEMODIALYSIS Routine 12/10/2024 11:27 AM PROJECT MANAGEMENT ENGINEER CBC WITHOUT DIFFERENTIAL Routine 12/09/2024 9:36 PM PROJECT MANAGEMENT ENGINEER CREATINE KINASE (CK), TOTAL Routine 12/09/2024 9:28 PM PROJECT MANAGEMENT ENGINEER EGFR Routine 12/09/2024 9:28 PM PROJECT MANAGEMENT ENGINEER PHOSPHORUS Routine 12/09/2024 9:28 PM PROJECT MANAGEMENT ENGINEER MAGNESIUM Routine 12/09/2024 9:28 PM PROJECT MANAGEMENT ENGINEER BASIC METABOLIC PANEL Routine 12/09/2024 9:28 PM PROJECT MANAGEMENT ENGINEER CENTRAL LINE PLACEMENT > 5 YEARS IP Routine 12/09/2024 3:57 PM PROJECT MANAGEMENT ENGINEER EGFR Routine 12/08/2024 9:08 PM PROJECT MANAGEMENT ENGINEER PHOSPHORUS Routine 12/08/2024 9:08 PM PROJECT MANAGEMENT ENGINEER MAGNESIUM Routine 12/08/2024 9:08 PM PROJECT MANAGEMENT ENGINEER CBC WITHOUT DIFFERENTIAL Routine 12/08/2024 9:08 PM PROJECT MANAGEMENT ENGINEER BASIC METABOLIC PANEL Routine 12/08/2024 9:08 PM PROJECT MANAGEMENT ENGINEER CBC WITHOUT DIFFERENTIAL STAT 12/08/2024 12:51 PM PROJECT MANAGEMENT ENGINEER XR CHEST 1 VIEW ED Urgent/IP Urgent 12/08/2024 9:10 AM PROJECT MANAGEMENT ENGINEER CT CHEST WO CONTRAST ED Urgent/IP Urgent 12/08/2024 8:57 AM PROJECT MANAGEMENT ENGINEER TRANSFUSE RED BLOOD CELLS Timed 12/08/2024 5:45 AM PROJECT MANAGEMENT ENGINEER PREPARE RBC Timed 12/08/2024 5:06 AM PROJECT MANAGEMENT ENGINEER TYPE AND SCREEN Routine 12/08/2024 3:40 AM PROJECT MANAGEMENT ENGINEER CBC WITHOUT DIFFERENTIAL Routine 12/08/2024 3:40 AM PROJECT MANAGEMENT ENGINEER HEMODIALYSIS Routine 12/08/2024 12:31 AM PROJECT MANAGEMENT ENGINEER EGFR Routine 12/07/2024 8:59 PM PROJECT MANAGEMENT ENGINEER PHOSPHORUS Routine 12/07/2024 8:59 PM PROJECT MANAGEMENT ENGINEER MAGNESIUM Routine 12/07/2024 8:59 PM PROJECT MANAGEMENT ENGINEER CBC WITHOUT DIFFERENTIAL Routine 12/07/2024 8:59 PM PROJECT MANAGEMENT ENGINEER BASIC METABOLIC PANEL Routine 12/07/2024 8:59 PM PROJECT MANAGEMENT ENGINEER EGFR Routine 12/06/2024 9:25 PM PROJECT MANAGEMENT ENGINEER PHOSPHORUS Routine 12/06/2024 9:25 PM PROJECT MANAGEMENT ENGINEER MAGNESIUM Routine 12/06/2024 9:25 PM PROJECT MANAGEMENT ENGINEER CBC WITHOUT DIFFERENTIAL Routine 12/06/2024 9:25 PM PROJECT MANAGEMENT ENGINEER BASIC METABOLIC PANEL Routine 12/06/2024 9:25 PM PROJECT MANAGEMENT ENGINEER TRANSTHORACIC ECHO (TTE) COMPLETE W DOPPLER/CF W CONTRAST Routine 12/06/2024 4:48 PM PROJECT MANAGEMENT ENGINEER HEMODIALYSIS Routine 12/06/2024 1:43 PM PROJECT MANAGEMENT ENGINEER XR CHEST PA LATERAL 2 VIEWS Timed 12/06/2024 12:28 PM PROJECT MANAGEMENT ENGINEER POCT GLUCOSE DEVICE Routine 12/06/2024 7 :58 AM PROJECT MANAGEMENT ENGINEER POCT GLUCOSE DEVICE Routine 12/05/2024 9 :03 PM PROJECT MANAGEMENT ENGINEER HEPATIC FUNCTION PANEL Routine 12/05/2024 7:45 PM PROJECT MANAGEMENT ENGINEER CBC WITH AUTO DIFFERENTIAL Routine 12/05/2024 7:45 PM PROJECT MANAGEMENT ENGINEER DIFFERENTIAL AUTO Routine 12/05/2024 7:4 5 PM PROJECT MANAGEMENT ENGINEER EGFR Routine 12/05/2024 7:45 PM PROJECT MANAGEMENT ENGINEER PHOSPHORUS Routine 12/05/2024 7:45 PM PROJECT MANAGEMENT ENGINEER MAGNESIUM Routine 12/05/2024 7:45 PM PROJECT MANAGEMENT ENGINEER CBC WITHOUT DIFFERENTIAL Routine 12/05/2024 7:45 PM PROJECT MANAGEMENT ENGINEER BASIC METABOLIC PANEL Routine 12/05/2024 7:45 PM PROJECT MANAGEMENT ENGINEER POCT GLUCOSE DEVICE Routine 12/05/2024 7 :39 PM PROJECT MANAGEMENT ENGINEER POCT GLUCOSE DEVICE Routine 12/05/2024 4 :43 PM PROJECT MANAGEMENT ENGINEER POTASSIUM, WHOLE BLOOD STAT 12/05/2024 11:49 AM PROJECT MANAGEMENT ENGINEER POCT GLUCOSE DEVICE Routine 12/05/2024 11:48 AM PROJECT MANAGEMENT ENGINEER CRITICAL CARE Routine 12/05/2024 11:39 AM PROJECT MANAGEMENT ENGINEER Subacute bacterial endocarditis [I33.0] POCT GLUCOSE DEVICE Routine 12/05/2024 7 :39 AM PROJECT MANAGEMENT ENGINEER POTASSIUM, WHOLE BLOOD STAT 12/05/2024 6:36 AM PROJECT MANAGEMENT ENGINEER TACROLIMUS LEVEL, TROUGH STAT 12/05/2024 6:36 AM PROJECT MANAGEMENT ENGINEER POCT GLUCOSE DEVICE Routine 12/05/2024 4 :24 AM PROJECT MANAGEMENT ENGINEER POCT GLUCOSE DEVICE Routine 12/05/2024 1 :25 AM PROJECT MANAGEMENT ENGINEER EGFR Routine 12/05/2024 1:25 AM PROJECT MANAGEMENT ENGINEER POTASSIUM, WHOLE BLOOD STAT 12/05/2024 1:25 AM PROJECT MANAGEMENT ENGINEER PHOSPHORUS Routine 12/05/2024 1:25 AM PROJECT MANAGEMENT ENGINEER MAGNESIUM Routine 12/05/2024 1:25 AM PROJECT MANAGEMENT ENGINEER BASIC METABOLIC PANEL Routine 12/05/2024 1:25 AM PROJECT MANAGEMENT ENGINEER CBC WITHOUT DIFFERENTIAL Routine 12/05/2024 1:25 AM PROJECT MANAGEMENT ENGINEER TYPE AND SCREEN Timed 12/05/2024 1:25 AM PROJECT MANAGEMENT ENGINEER POCT GLUCOSE DEVICE Routine 12/04/2024 8 :24 PM PROJECT MANAGEMENT ENGINEER XR CHEST 1 VIEW IP Routine 12/04/2024 7:41 PM PROJECT MANAGEMENT ENGINEER POCT GLUCOSE DEVICE Routine 12/04/2024 7 :21 PM PROJECT MANAGEMENT ENGINEER CRITICAL CARE Routine 12/04/2024 6:30 PM PROJECT MANAGEMENT ENGINEER Severe mitral regurgitation POCT GLUCOSE DEVICE Routine 12/04/2024 6 :13 PM PROJECT MANAGEMENT ENGINEER POTASSIUM, WHOLE BLOOD STAT 12/04/2024 6:13 PM PROJECT MANAGEMENT ENGINEER INFECTION PREVENTION LEIDY AURIS PCR, SURVEILLANCE Routine 12/04/2024 5:39 PM PROJECT MANAGEMENT ENGINEER HEMODIALYSIS Routine 12/04/2024 5:08 PM PROJECT MANAGEMENT ENGINEER POCT GLUCOSE DEVICE Routine 12/04/2024 3 :47 PM PROJECT MANAGEMENT ENGINEER TRIGLYCERIDES STAT 12/04/2024 2:15 PM PROJECT MANAGEMENT ENGINEER EGFR STAT 12/04/2024 2:15 PM PROJECT MANAGEMENT ENGINEER OXYHEMOGLOBIN, CENTRAL VENOUS STAT 12/04/2024 2:15 PM PROJECT MANAGEMENT ENGINEER APTT STAT 12/04/2024 2:15 PM PROJECT MANAGEMENT ENGINEER PROTIME-INR STAT 12/04/2024 2:15 PM PROJECT MANAGEMENT ENGINEER CBC WITHOUT DIFFERENTIAL STAT 12/04/2024 2:15 PM PROJECT MANAGEMENT ENGINEER MAGNESIUM STAT 12/04/2024 2:15 PM PROJECT MANAGEMENT ENGINEER BASIC METABOLIC PANEL STAT 12/04/2024 2:15 PM PROJECT MANAGEMENT ENGINEER TYPE AND SCREEN Timed 12/04/2024 2:15 PM PROJECT MANAGEMENT ENGINEER POC BLOOD GAS AND CHEMISTRIES, ARTERIAL Routine 12/04/2024 2:10 PM PROJECT MANAGEMENT ENGINEER CRITICAL CARE Routine 12/04/2024 2:09 PM PROJECT MANAGEMENT ENGINEER XR CHEST 1 VIEW ED Urgent/IP Urgent 12/04/2024 2:05 PM PROJECT MANAGEMENT ENGINEER POCT PLATELET COUNT AND HEMATOCRIT Routine 12/04/2024 11:53 AM PROJECT MANAGEMENT ENGINEER POCT PARTIAL THROMBOPLASTIN TIME (PTT) Routine 12/04/2024 11:52 AM PROJECT MANAGEMENT ENGINEER POCT PROTHROMBIN TIME Routine 12/04/2024 11:52 AM PROJECT MANAGEMENT ENGINEER POCT HEPARIN/ACT CPB Routine 12/04/2024 11:51 AM PROJECT MANAGEMENT ENGINEER POC BLOOD GAS AND CHEMISTRIES, ARTERIAL Routine 12/04/2024 11:48 AM PROJECT MANAGEMENT ENGINEER POCT HEPARIN/ACT CPB Routine 12/04/2024 11:29 AM PROJECT MANAGEMENT ENGINEER POC BLOOD GAS AND CHEMISTRIES, ARTERIAL Routine 12/04/2024 11:26 AM PROJECT MANAGEMENT ENGINEER POCT HEPARIN/ACT CPB Routine 12/04/2024 10:59 AM PROJECT MANAGEMENT ENGINEER POC BLOOD GAS AND CHEMISTRIES, ARTERIAL Routine 12/04/2024 10:55 AM PROJECT MANAGEMENT ENGINEER POCT HEPARIN/ACT CPB Routine 12/04/2024 10:24 AM PROJECT MANAGEMENT ENGINEER POC BLOOD GAS AND CHEMISTRIES, ARTERIAL Routine 12/04/2024 10:20 AM PROJECT MANAGEMENT ENGINEER POCT HEPARIN/ACT CPB Routine 12/04/2024 9:49 AM PROJECT MANAGEMENT ENGINEER TRANSFUSE RED BLOOD CELLS Timed 12/04/2024 9:41 AM PROJECT MANAGEMENT ENGINEER TRANSFUSE RED BLOOD CELLS Timed 12/04/2024 9:41 AM PROJECT MANAGEMENT ENGINEER SURGICAL PATHOLOGY Routine 12/04/2024 9: 37 AM PROJECT MANAGEMENT ENGINEER Severe mitral regurgitation [place] AN PROCEDURE PLACEHOLDER Routine 12/04/2024 9:34 AM PROJECT MANAGEMENT ENGINEER ANESTHESIA CENTRAL VENOUS LINE PLACEMENT Routine 12/04/2024 9:18 AM PROJECT MANAGEMENT ENGINEER ANESTHESIA CENTRAL VENOUS LINE PLACEMENT Routine 12/04/2024 9:17 AM PROJECT MANAGEMENT ENGINEER ANESTHESIA ARTERIAL LINE PLACEMENT Routine 12/04/2024 9:17 AM PROJECT MANAGEMENT ENGINEER ANESTHESIA INTUBATION Routine 12/04/2024 9:16 AM PROJECT MANAGEMENT ENGINEER POCT HEPARIN DOSE RESPONSE, CPB Routine 12/04/2024 9:13 AM PROJECT MANAGEMENT ENGINEER POC BLOOD GAS AND CHEMISTRIES, ARTERIAL Routine 12/04/2024 9:08 AM PROJECT MANAGEMENT ENGINEER REPAIR MITRAL VALVE 12/04/2024 8 :04 AM PROJECT MANAGEMENT ENGINEER Severe mitral regurgitation Case Notes 11/29@1612- Josse Mireles via phone call reschedule to 12/06/24- [facility]ALEN ADD-ON FOR OR Routine 12/04/2024 7:5 9 AM PROJECT MANAGEMENT ENGINEER POC BLOOD GAS AND CHEMISTRIES, ARTERIAL Routine 12/04/2024 6:24 AM PROJECT MANAGEMENT ENGINEER PREPARE RBC Timed 12/04/2024 5:52 AM PROJECT MANAGEMENT ENGINEER EGFR Routine 12/03/2024 10:17 PM PROJECT MANAGEMENT ENGINEER PHOSPHORUS Routine 12/03/2024 10:17 PM PROJECT MANAGEMENT ENGINEER MAGNESIUM Routine 12/03/2024 10:17 PM PROJECT MANAGEMENT ENGINEER BASIC METABOLIC PANEL Routine 12/03/2024 10:17 PM PROJECT MANAGEMENT ENGINEER CBC WITHOUT DIFFERENTIAL Routine 12/03/2024 10:17 PM PROJECT MANAGEMENT ENGINEER URINALYSIS, MICROSCOPIC ONLY STAT 12/03/2024 9:17 PM PROJECT MANAGEMENT ENGINEER URINALYSIS AND REFLEX TO MICROSCOPIC AND CULTURE STAT 12/03/2024 9:17 PM PROJECT MANAGEMENT ENGINEER HEMODIALYSIS Routine 12/03/2024 6:55 AM PROJECT MANAGEMENT ENGINEER EGFR Routine 12/02/2024 9:40 PM PROJECT MANAGEMENT ENGINEER CREATINE KINASE (CK), TOTAL Timed 12/02/2024 9:40 PM PROJECT MANAGEMENT ENGINEER TYPE AND SCREEN Timed 12/02/2024 9:40 PM PROJECT MANAGEMENT ENGINEER PHOSPHORUS Routine 12/02/2024 9:40 PM PROJECT MANAGEMENT ENGINEER MAGNESIUM Routine 12/02/2024 9:40 PM PROJECT MANAGEMENT ENGINEER BASIC METABOLIC PANEL Routine 12/02/2024 9:40 PM PROJECT MANAGEMENT ENGINEER CBC WITHOUT DIFFERENTIAL Routine 12/02/2024 9:40 PM PROJECT MANAGEMENT ENGINEER LEFT HEART CATHETERIZATION (LHC) Routine 12/02/2024 1:58 PM PROJECT MANAGEMENT ENGINEER Severe mitral regurgitation BLOOD CULTURE Routine 12/02/2024 8:36 AM PROJECT MANAGEMENT ENGINEER EGFR Routine 12/01/2024 10:28 PM PROJECT MANAGEMENT ENGINEER PHOSPHORUS Routine 12/01/2024 10:28 PM PROJECT MANAGEMENT ENGINEER MAGNESIUM Routine 12/01/2024 10:28 PM PROJECT MANAGEMENT ENGINEER BASIC METABOLIC PANEL Routine 12/01/2024 10:28 PM PROJECT MANAGEMENT ENGINEER CBC WITHOUT DIFFERENTIAL Routine 12/01/2024 10:28 PM PROJECT MANAGEMENT ENGINEER INFECTION PREVENTION LEIDY AURIS PCR, SURVEILLANCE Routine 12/01/2024 10:28 PM PROJECT MANAGEMENT ENGINEER HEMODIALYSIS Routine 12/01/2024 12:31 AM PROJECT MANAGEMENT ENGINEER EGFR Routine 11/30/2024 10:05 PM PROJECT MANAGEMENT ENGINEER PHOSPHORUS Routine 11/30/2024 10:05 PM PROJECT MANAGEMENT ENGINEER MAGNESIUM Routine 11/30/2024 10:05 PM PROJECT MANAGEMENT ENGINEER BASIC METABOLIC PANEL Routine 11/30/2024 10:05 PM PROJECT MANAGEMENT ENGINEER CBC WITHOUT DIFFERENTIAL Routine 11/30/2024 10:05 PM PROJECT MANAGEMENT ENGINEER EGFR Routine 11/29/2024 10:10 PM PROJECT MANAGEMENT ENGINEER TYPE AND SCREEN Timed 11/29/2024 10:10 PM PROJECT MANAGEMENT ENGINEER PHOSPHORUS Routine 11/29/2024 10:10 PM PROJECT MANAGEMENT ENGINEER MAGNESIUM Routine 11/29/2024 10:10 PM PROJECT MANAGEMENT ENGINEER BASIC METABOLIC PANEL Routine 11/29/2024 10:10 PM PROJECT MANAGEMENT ENGINEER CBC WITHOUT DIFFERENTIAL Routine 11/29/2024 10:10 PM PROJECT MANAGEMENT ENGINEER EGFR Routine 11/28/2024 10:29 PM PROJECT MANAGEMENT ENGINEER PHOSPHORUS Routine 11/28/2024 10:29 PM PROJECT MANAGEMENT ENGINEER MAGNESIUM Routine 11/28/2024 10:29 PM PROJECT MANAGEMENT ENGINEER BASIC METABOLIC PANEL Routine 11/28/2024 10:29 PM PROJECT MANAGEMENT ENGINEER CBC WITHOUT DIFFERENTIAL Routine 11/28/2024 10:29 PM PROJECT MANAGEMENT ENGINEER BLOOD CULTURE Routine 11/28/2024 10:29 PM PROJECT MANAGEMENT ENGINEER GENERAL Routine 11/28/2024 12:40 PM PROJECT MANAGEMENT ENGINEER Allergy to ampicillin HEMODIALYSIS Routine 11/28/2024 11:44 AM PROJECT MANAGEMENT ENGINEER ECG 12-LEAD Routine 11/28/2024 8:45 AM PROJECT MANAGEMENT ENGINEER EGFR Routine 11/27/2024 9:57 PM PROJECT MANAGEMENT ENGINEER PHOSPHORUS Routine 11/27/2024 9:57 PM PROJECT MANAGEMENT ENGINEER MAGNESIUM Routine 11/27/2024 9:57 PM PROJECT MANAGEMENT ENGINEER BASIC METABOLIC PANEL Routine 11/27/2024 9:57 PM PROJECT MANAGEMENT ENGINEER CBC WITHOUT DIFFERENTIAL Routine 11/27/2024 9:57 PM PROJECT MANAGEMENT ENGINEER BLOOD CULTURE Routine 11/27/2024 9:57 PM PROJECT MANAGEMENT ENGINEER BLOOD CULTURE Routine 11/27/2024 2:02 PM PROJECT MANAGEMENT ENGINEER TRANSESOPHAGEAL ECHO ([facility]AL[facility]) W DOPPLER/CF WO CONTRAST Routine 11/27/2024 12:37 PM PROJECT MANAGEMENT ENGINEER POC BLOOD GAS AND CHEMISTRIES, ARTERIAL Routine 11/27/2024 11:02 AM PROJECT MANAGEMENT ENGINEER MRI BRAIN WO CONTRAST IP Routine 11/27/2024 2:47 AM PROJECT MANAGEMENT ENGINEER EGFR Routine 11/26/2024 11:09 PM PROJECT MANAGEMENT ENGINEER TYPE AND SCREEN Timed 11/26/2024 11:09 PM PROJECT MANAGEMENT ENGINEER PHOSPHORUS Routine 11/26/2024 11:09 PM PROJECT MANAGEMENT ENGINEER MAGNESIUM Routine 11/26/2024 11:09 PM PROJECT MANAGEMENT ENGINEER BASIC METABOLIC PANEL Routine 11/26/2024 11:09 PM PROJECT MANAGEMENT ENGINEER CBC WITHOUT DIFFERENTIAL Routine 11/26/2024 11:09 PM PROJECT MANAGEMENT ENGINEER HEMODIALYSIS Routine 11/26/2024 11:23 AM PROJECT MANAGEMENT ENGINEER POTASSIUM LEVEL Timed 11/26/2024 8:26 AM PROJECT MANAGEMENT ENGINEER POTASSIUM LEVEL Timed 11/26/2024 5:10 AM PROJECT MANAGEMENT ENGINEER TACROLIMUS LEVEL, TROUGH Routine 11/26/2024 5:10 AM PROJECT MANAGEMENT ENGINEER CTA CHEST ABDOMEN PELVIS IP Routine 11/26/2024 1:56 AM PROJECT MANAGEMENT ENGINEER CT HEAD WO CONTRAST IP Routine 11/26/2024 1 :56 AM PROJECT MANAGEMENT ENGINEER EGFR Routine 11/25/2024 11:33 PM PROJECT MANAGEMENT ENGINEER CREATINE KINASE (CK), TOTAL Timed 11/25/2024 11:33 PM PROJECT MANAGEMENT ENGINEER PHOSPHORUS Routine 11/25/2024 11:33 PM PROJECT MANAGEMENT ENGINEER MAGNESIUM Routine 11/25/2024 11:33 PM PROJECT MANAGEMENT ENGINEER BASIC METABOLIC PANEL Routine 11/25/2024 11:33 PM PROJECT MANAGEMENT ENGINEER CBC WITHOUT DIFFERENTIAL Routine 11/25/2024 11:33 PM PROJECT MANAGEMENT ENGINEER US TRANSFER OF OUTSIDE FILMS Routine 11/25/2024 3:55 PM PROJECT MANAGEMENT ENGINEER HEPATITIS B SURFACE ANTIGEN STAT 11/25/2024 3:24 PM PROJECT MANAGEMENT ENGINEER TACROLIMUS LEVEL, TROUGH STAT 11/25/2024 9:57 AM PROJECT MANAGEMENT ENGINEER INFECTION PREVENTION LEIDY AURIS PCR, SURVEILLANCE Routine 11/25/2024 9:57 AM PROJECT MANAGEMENT ENGINEER HEMODIALYSIS Routine 11/25/2024 8:42 AM PROJECT MANAGEMENT ENGINEER CRITICAL RESULT CALLBACK CHEMISTRY STAT 11/25/2024 7:47 AM PROJECT MANAGEMENT ENGINEER POTASSIUM, WHOLE BLOOD STAT 11/25/2024 7:47 AM PROJECT MANAGEMENT ENGINEER POCT GLUCOSE DEVICE Routine 11/25/2024 7 :37 AM PROJECT MANAGEMENT ENGINEER EGFR Routine 11/25/2024 5:43 AM PROJECT MANAGEMENT ENGINEER CRITICAL RESULT CALLBACK CHEMISTRY Routine 11/25/2024 5:43 AM PROJECT MANAGEMENT ENGINEER APTT Routine 11/25/2024 5:43 AM PROJECT MANAGEMENT ENGINEER PROTIME-INR Routine 11/25/2024 5:43 AM PROJECT MANAGEMENT ENGINEER COMPREHENSIVE METABOLIC PANEL Routine 11/25/2024 5:43 AM PROJECT MANAGEMENT ENGINEER TYPE AND SCREEN Timed 11/25/2024 5:43 AM PROJECT MANAGEMENT ENGINEER CBC WITHOUT DIFFERENTIAL Routine 11/25/2024 5:43 AM PROJECT MANAGEMENT ENGINEER BLOOD CULTURE Routine 11/25/2024 5:43 AM PROJECT MANAGEMENT ENGINEER BLOOD CULTURE Routine 11/25/2024 5:43 AM PROJECT MANAGEMENT ENGINEER XR CHEST 1 VIEW IP Routine 11/25/2024 4:44 AM PROJECT MANAGEMENT ENGINEER HEPATITIS C ANTIBODY Routine 11/28/2023 1:19 PM PROJECT MANAGEMENT ENGINEER Stage 5 chronic kidney disease on chronic [...] signed by: Abdulkadir Matamoros M.D. Jennifer Montanez NEWS [employer] OPERATOR IMG XR PROCEDURES Final Result * TRANSTHORACIC ECHO (TTE) COMPLETE W DOPPLER/CF WO CONTRAST (01/16/2025 5:18 PM CDT) Anatomical Region Laterality Modality Ultrasound 01/16/2025 4:38 PM CDT Narrative 01/17/2025 7:01 AM CDT [facility] [place] [address] Transthoracic Echocardiographic Report Patient Name: QUIN MILLER J : 1970 (54y 5m) Gender: F Study Date: 01/16/2025 04:38:36 PM Ht(Inch): 63 Wt(Lb): 128.97 BSA: 1.61 Quality Assurance Associate: Azucena Han RDCS Location: [facility] Order Provider: JENNIFER MONTANEZ Heart Rate: [...] Procedure Note Christo Ruiz MD - 01/17/2025 [facility] [place] [address] Transthoracic Echocardiographic Report Patient Name: QUIN MILLER J : 1970 (54y 5m) Gender: F Study Date: 01/16/2025 04:38:36 PM Ht(Inch): 63 Wt(Lb): 128.97 BSA: 1.61 Quality Assurance Associate: Azucena Han RDCS Location: [facility] Order Provider:JENNIFER MONTANEZ Heart Rate: 72 [...] cm LA Length 2C 5.03 cm MV UBM049.46 msec [ 20.00 - 100.00 ] LA [...] Glucose, random (Outreach) (01/14/2025 9:30 AM CDT) [facility] Glucose 157 70 - 199 mg/dL Comment: [...] ORDERABLES Final Resu lt Performing Organization Address [facility] Co de Phone Number [facility] [address] Department [employer] [place], [place] [id number] * (ABNORMAL) eGFR (01/14/2025 9:30 AM CDT) eGFR 14(L) >=60 mL/min/1. 73 [...] ORDERABLES Final Resu lt Performing Organization Address City/[facility]/ZIP Co de Phone Number [facility] [address] Department [employer] [place], [place] [id number] * Differential, auto (01/14/2025 9:30 AM CDT) Neutrophil abs 2.4 1.5 - 6.5 K/cumm Imm gran abs 0.0 0.0 - 0.1 K/cumm [facility] Lymphocyte abs 0.9 0.8 - 3.3 K/cumm [facility] Monocyte abs 0.5 0.2 - 0.8 K/cumm [facility] Eosinophil abs 0.0 0.0 - 0.5 K/cumm [facility] Basophil abs 0.0 0.0 - 0.1 K/cumm [facility] Neutrophil pct 61.7 % [facility] Comment: Interpretive Data Percent cell count reference ranges are not reported, since discordance with absolute values may lead to misinterpretation of CBC data. Current Interpretive Data was last revised on 2018. Imm gran pct 0.5 % [facility] Comment: Interpretive Data Percent cell count reference ranges are not reported, since discordance with absolute values may lead to misinterpretation of CBC data. Current Interpretive Data was last revised on 2018. Lymphocyte pct 24.0 % [facility] Comment: Interpretive Data Percent cell count reference ranges are not reported, since discordance with absolute values may lead to misinterpretation of CBC data. Current Interpretive Data was last revised on 2018. Monocyte pct 12.2 % [facility] Comment: Interpretive Data Percent cell count reference ranges are not reported, since discordance with absolute values may lead to misinterpretation of CBC data. Current Interpretive Data was last revised on 2018. Eosinophil pct 0.8 % [facility] Comment: Interpretive Data Percent cell count reference ranges are not reported, since discordance with absolute values may lead to misinterpretation of CBC data. Current Interpretive Data was last revised on 2018. Basophil pct 0.8 % [facility] Comment: Interpretive Data Percent cell count reference ranges are not reported, since discordance with absolute values may lead to misinterpretation of CBC data. Current Interpretive Data was last revised on 2018. Blood 01/14/2025 9:30 AM CDT 01/14/2025 2:04 PM CDT us Irma Arias MD LAB BLOOD ORDERABLES Final Resu lt [facility] [address] Department [place] [address] * (ABNORMAL) Comprehensive metabolic panel, without glucose (Outreach) (01/14/2025 9:30 AM CDT) [facility] Sodium 142 135 - 145 mmol/L Potassium, pl 4.5 3.3 - 4.9 mmol/L [facility] Chloride 102 97 - 110 mmol/L [facility] CO2 26 22 - 32 mmol/L [facility] Anion gap 14 2 - 15 mmol/L [facility] BUN 25 6 - 25 mg/dL [facility] Creatinine 3.63(H) 0.60 - 1.10 mg/dL [facility] Calcium 8.3(L) 8.5 - 10.3 mg/dL [facility] Protein, pl 7.3 6.5 - 8.5 g/dL [facility] Albumin 2.9(L) 3.5 - 5.0 g/dL [facility] Bilirubin, total 0.5 0.1 - 1.2 mg/dL [facility] Alk phos 157(H) 40 - 130 Units/L [facility] AST 33 10 - 45 Units/L [facility] Comment:Slightly Hemolyzed S pecimen ALT 18 7 - 45 Units/L [facility] Blood 01/14/2025 9:30 AM CDT 01/14/2025 2:04 PM CDT us Irma Arias MD LAB BLOOD ORDERABLES Final Resu lt [facility] [address] Department [place] [address] * (ABNORMAL) CBC with auto differential (01/14/2025 9:30 AM CDT) [facility] WBC 3.9 3.8 - 9.9 K/cumm Hgb 10.6(L) 11.9 - 15.5 g/dL [facility] Hct 34.4(L) 35.6 - 45.5 % [facility] Plt 160 150 - 400 K/cumm [facility] MPV 11.6 9.1 - 12.3 fL [facility] [facility] RBC 3.47(L) 3.90 - 5.20 M/cumm [facility] MCV 99.1(H) 81.3 - 96.4 fL [facility] MCH 30.5 27.1 - 33.3 pg [facility] MCHC 30.8(L) 32.3 - 35.7 g/dL [facility] RDW CV 18.0(H) 11.1 - 14.9 % [facility] RDW SD 63.5(H) 35.7 - 48.1 fL [facility] NRBC abs 0.00 0.00 - 0.01 K/cumm [facility] Blood 01/14/2025 9:30 AM CDT 01/14/2025 2:04 PM CDT us Irma Arias MD LAB BLOOD ORDERABLES Final Resu lt Performing Organization Address [facility] Co de Phone Number [facility] [address] Department [place] [address] * Glucose, random (Outreach) (01/07/2025 11:45 AM CDT) [facility] Glucose 135 70 - 199 mg/dL Comment: [...] ORDERABLES Final Resul t Performing Organization Address [facility] Co de Phone Number [facility] [address] Department [place] [address] * (ABNORMAL) eGFR (01/07/2025 11:45 AM CDT) Pathologist [facility] eGFR 14(L) >=60 mL/min/1. 73 m2 Comment: [...] 5 AM CDT 01/08/2025 10:34 AM CDT us Vinny Lugo DO LAB BLOOD ORDERABLES Final Resul t [facility] [address] Department [place] [address] * (ABNORMAL) Differential, auto (01/07/2025 11:45 AM CDT) [facility] Neutrophil abs 3.6 1.5 - 6.5 K/cumm Imm gran abs 0.0 0.0 - 0.1 K/cumm [facility] Lymphocyte abs 0.6(L) 0.8 - 3.3 K/cumm [facility] Monocyte abs 0.2 0.2 - 0.8 K/cumm [facility] Eosinophil abs 0.0 0.0 - 0.5 K/cumm [facility] Basophil abs 0.0 0.0 - 0.1 K/cumm [facility] Neutrophil pct 79.7 % [facility] Comment: Interpretive Data Percent cell count reference ranges are not reported, since discordance with absolute values may lead to misinterpretation of CBC data. Current Interpretive Data was last revised on 2018. Imm gran pct 0.2 % [facility] Comment: Interpretive Data Percent cell count reference ranges are not reported, since discordance with absolute values may lead to misinterpretation of CBC data. Current Interpretive Data was last revised on 2018. Lymphocyte pct 14.1 % [facility] Comment: Interpretive Data Percent cell count reference ranges are not reported, since discordance with absolute values may lead to misinterpretation of CBC data. Current Interpretive Data was last revised on 2018. Monocyte pct 5.4 % [facility] Comment: Interpretive Data Percent cell count reference ranges are not reported, since discordance with absolute values may lead to misinterpretation of CBC data. Current Interpretive Data was last revised on 2018. Eosinophil pct 0.4 % [facility] Comment: Interpretive Data Percent cell count reference ranges are not reported, since discordance with absolute values may lead to misinterpretation of CBC data. Current Interpretive Data was last revised on 2018. Basophil pct 0.2 % [facility] Comment: Interpretive Data Percent cell count reference ranges are not reported, since discordance with absolute values may lead to misinterpretation of CBC data. Current Interpretive Data was last revised on 2018. Blood 01/07/2025 11:4 5 AM CDT 01/07/2025 9:16 PM CDT us Vinny Lugo DO LAB BLOOD ORDERABLES Final Resul t [facility] [address] Department [place] [address] * (ABNORMAL) Comprehensive metabolic panel, without glucose (Outreach) (01/07/2025 11:45 AM CDT) Sodium 140 135 - 145 mmol/L Potassium, pl 4.5 3.3 - 4.9 mmol/L [facility] Chloride 99 97 - 110 mmol/L [facility] CO2 27 22 - 32 mmol/L [facility] Anion gap 14 2 - 15 mmol/L [facility] BUN 21 6 - 25 mg/dL [facility] Creatinine 3.80(H) 0.60 - 1.10 mg/dL [facility] Calcium 8.4(L) 8.5 - 10.3 mg/dL [facility] Protein, pl 7.7 6.5 - 8.5 g/dL [facility] Albumin 2.8(L) 3.5 - 5.0 g/dL [facility] Bilirubin, total <0.2 0.1 - 1.2 mg/dL [facility] Alk phos 163(H) 40 - 130 Units/L [facility] AST 34 10 - 45 Units/L [facility] ALT 15 7 - 45 Units/L [facility] Blood 01/07/2025 11:4 5 AM CDT 01/07/2025 9:15 PM CDT us Vinny Lugo DO LAB BLOOD ORDERABLES Final Resul t [facility] [address] Department [place] [address] * (ABNORMAL) CBC with auto differential (01/07/2025 11:45 AM CDT) WBC 4.5 3.8 - 9.9 K/cumm Hgb 10.1(L) 11.9 - 15.5 g/dL [facility] Hct 33.6(L) 35.6 - 45.5 % [facility] Plt 146(L) 150 - 400 K/cumm [facility] MPV 11.9 9.1 - 12.3 fL [facility] RBC 3.40(L) 3.90 - 5.20 M/cumm [facility] MCV 98.8(H) 81.3 - 96.4 fL [facility] MCH 29.7 27.1 - 33.3 pg [facility] MCHC 30.1(L) 32.3 - 35.7 g/dL [facility] RDW CV 16.9(H) 11.1 - 14.9 % [facility] RDW SD 60.9(H) 35.7 - 48.1 fL [facility] NRBC abs 0.00 0.00 - 0.01 K/cumm [facility] Blood 01/07/2025 11:4 5 AM CDT 01/07/2025 9:16 PM CDT Vinny Weaver Labs LAB BLOOD ORDERABLES Final Resul t Performing Organization Address [facility] Co de Phone Number [facility] [address] [place] [address] * Glucose, random (Outreach) (12/31/2024 10:35 AM PROJECT MANAGEMENT ENGINEER) Glucose 96 70 - 199 mg/dL Comment: [...] revised 2022. Blood 12/31/2024 10:3 5 AM PROJECT MANAGEMENT ENGINEER 12/31/2024 4:21 PM PROJECT MANAGEMENT ENGINEER Vinny Weaver [facility] DO LAB BLOOD ORDERABLES Final Resul t Performing Organization Address [facility] Co de Phone Number [facility] [address] [place] [address] * (ABNORMAL) eGFR (12/31/2024 10:35 AM PROJECT MANAGEMENT ENGINEER) eGFR 14(L) >=60 mL/min/1. 73 m2 Comment: [...] reviewed 2021. Blood 12/31/2024 10:3 5 AM PROJECT MANAGEMENT ENGINEER 12/31/2024 8:23 PM PROJECT MANAGEMENT ENGINEER Vinny Lugo DO LAB BLOOD ORDERABLES Final Resul t [facility] [address] Department [place] [address] * Differential, auto (12/31/2024 10:35 AM PROJECT MANAGEMENT ENGINEER) Neutrophil abs 2.5 1.5 - 6.5 K/cumm Imm gran abs 0.0 0.0 - 0.1 K/cumm [facility] Lymphocyte abs 0.8 0.8 - 3.3 K/cumm [facility] Monocyte abs 0.4 0.2 - 0.8 K/cumm [facility] Eosinophil abs 0.1 0.0 - 0.5 K/cumm [facility] Basophil abs 0.0 0.0 - 0.1 K/cumm [facility] Neutrophil pct 66.3 % [facility] Comment: Interpretive Data Percent cell count reference ranges are not reported, since discordance with absolute values may lead to misinterpretation of CBC data. Current Interpretive Data was last revised on 2018. Imm gran pct 0.3 % [facility] Comment: Interpretive Data Percent cell count reference ranges are not reported, since discordance with absolute values may lead to misinterpretation of CBC data. Current Interpretive Data was last revised on 2018. Lymphocyte pct 21.6 % [facility] Comment: Interpretive Data Percent cell count reference ranges are not reported, since discordance with absolute values may lead to misinterpretation of CBC data. Current Interpretive Data was last revised on 2018. Monocyte pct 9.2 % [facility] Comment: Interpretive Data Percent cell count reference ranges are not reported, since discordance with absolute values may lead to misinterpretation of CBC data. Current Interpretive Data was last revised on 2018. Eosinophil pct 2.1 % [facility] Comment: Interpretive Data Percent cell count reference ranges are not reported, since discordance with absolute values may lead to misinterpretation of CBC data. Current Interpretive Data was last revised on 2018. Basophil pct 0.5 % [facility] Comment: Interpretive Data Percent cell count reference ranges are not reported, since discordance with absolute values may lead to misinterpretation of CBC data. Current Interpretive Data was last revised on 2018. Blood 12/31/2024 10:3 5 AM PROJECT MANAGEMENT ENGINEER 12/31/2024 4:22 PM PROJECT MANAGEMENT ENGINEER us Vinny Lugo DO LAB BLOOD ORDERABLES Final Resul t [facility] [address] Department [place] [address] * (ABNORMAL) Comprehensive metabolic panel, without glucose (Outreach) (12/31/2024 10:35 AM PROJECT MANAGEMENT ENGINEER) Sodium 141 135 - 145 mmol/L Potassium, pl 4.1 3.3 - 4.9 mmol/L [facility] Chloride 99 97 - 110 mmol/L [facility] CO2 31 22 - 32 mmol/L [facility] Anion gap 11 2 - 15 mmol/L [facility] BUN 15 6 - 25 mg/dL [facility] Creatinine 3.65(H) 0.60 - 1.10 mg/dL [facility] Calcium 8.2(L) 8.5 - 10.3 mg/dL [facility] Protein, pl 7.3 6.5 - 8.5 g/dL [facility] Albumin 2.6(L) 3.5 - 5.0 g/dL [facility] Bilirubin, total 0.4 0.1 - 1.2 mg/dL [facility] Alk phos 138(H) 40 - 130 Units/L [facility] AST 22 10 - 45 Units/L [facility] ALT 12 7 - 45 Units/L [facility] Blood 12/31/2024 10:3 5 AM PROJECT MANAGEMENT ENGINEER 12/31/2024 4:21 PM PROJECT MANAGEMENT ENGINEER us Vinny Lugo DO LAB BLOOD ORDERABLES Final Resul t [facility] [address] Department [place] [address] * (ABNORMAL) CBC with auto differential (12/31/2024 10:35 AM PROJECT MANAGEMENT ENGINEER) WBC 3.8 3.8 - 9.9 K/cumm Hgb 9.5(L) 11.9 - 15.5 g/dL [facility] Hct 31.4(L) 35.6 - 45.5 % [facility] Plt 169 150 - 400 K/cumm [facility] MPV 11.9 9.1 - 12.3 fL [facility] RBC 3.18(L) 3.90 - 5.20 M/cumm [facility] MCV 98.7(H) 81.3 - 96.4 fL [facility] MCH 29.9 27.1 - 33.3 pg [facility] MCHC 30.3(L) 32.3 - 35.7 g/dL [facility] RDW CV 17.3(H) 11.1 - 14.9 % [facility] RDW SD 61.4(H) 35.7 - 48.1 fL [facility] NRBC abs 0.00 0.00 - 0.01 K/cumm [facility] Blood 12/31/2024 10:3 5 AM PROJECT MANAGEMENT ENGINEER 12/31/2024 4:22 PM PROJECT MANAGEMENT ENGINEER us Vinny Lugo DO LAB BLOOD ORDERABLES Final Resul t [facility] [address] Department [place] [address] * Glucose, random (Outreach) (12/24/2024 1:45 PM PROJECT MANAGEMENT ENGINEER) Glucose 158 70 - 199 mg/dL Comment: [...] last revised 2022. Blood 12/24/2024 1:45 PM PROJECT MANAGEMENT ENGINEER 12/24/2024 3:38 PM PROJECT MANAGEMENT ENGINEER us Irma Arias MD LAB BLOOD ORDERABLES Final Resu lt [facility] Department [place] [address] * (ABNORMAL) eGFR (12/24/2024 1:45 PM PROJECT MANAGEMENT ENGINEER) eGFR 13(L) >=60 mL/min/1. 73 m2 Comment: [...] last reviewed 2021. Blood 12/24/2024 1:45 PM PROJECT MANAGEMENT ENGINEER 12/24/2024 3:40 PM PROJECT MANAGEMENT ENGINEER us Irma Arias MD LAB BLOOD ORDERABLES Final Resu lt [facility] Department [place] [address] * (ABNORMAL) Differential, auto (12/24/2024 1:45 PM PROJECT MANAGEMENT ENGINEER) Neutrophil abs 3.7 1.5 - 6.5 K/cumm Imm gran abs 0.1 0.0 - 0.1 K/cumm [facility] Lymphocyte abs 0.7(L) 0.8 - 3.3 K/cumm [facility] Monocyte abs 0.3 0.2 - 0.8 K/cumm [facility] Eosinophil abs 0.0 0.0 - 0.5 K/cumm [facility] Basophil abs 0.0 0.0 - 0.1 K/cumm [facility] Neutrophil pct 78.6 % [facility] Comment: Interpretive Data Percent cell count reference ranges are not reported, since discordance with absolute values may lead to misinterpretation of CBC data. Current Interpretive Data was last revised on 2018. Imm gran pct 1.1 % [facility] Comment: Interpretive Data Percent cell count reference ranges are not reported, since discordance with absolute values may lead to misinterpretation of CBC data. Current Interpretive Data was last revised on 2018. Lymphocyte pct 13.8 % [facility] Comment: Interpretive Data Percent cell count reference ranges are not reported, since discordance with absolute values may lead to misinterpretation of CBC data. Current Interpretive Data was last revised on 2018. Monocyte pct 5.5 % [facility] Comment: Interpretive Data Percent cell count reference ranges are not reported, since discordance with absolute values may lead to misinterpretation of CBC data. Current Interpretive Data was last revised on 2018. Eosinophil pct 0.6 % [facility] Comment: Interpretive Data Percent cell count reference ranges are not reported, since discordance with absolute values may lead to misinterpretation of CBC data. Current Interpretive Data was last revised on 2018. Basophil pct 0.4 % [facility] Comment: Interpretive Data Percent cell count reference ranges are not reported, since discordance with absolute values may lead to misinterpretation of CBC data. Current Interpretive Data was last revised on 2018. Blood 12/24/2024 1:45 PM PROJECT MANAGEMENT ENGINEER 12/24/2024 3:38 PM PROJECT MANAGEMENT ENGINEER us Irma Arias MD LAB BLOOD ORDERABLES Final Resu lt [facility] Department [place] [address] * (ABNORMAL) Comprehensive metabolic panel, without glucose (Outreach) (12/24/2024 1:45 PM PROJECT MANAGEMENT ENGINEER) Sodium 138 135 - 145 mmol/L Potassium, pl 4.6 3.3 - 4.9 mmol/L [facility] Chloride 100 97 - 110 mmol/L [facility] CO2 31 22 - 32 mmol/L [facility] Anion gap 7 2 - 15 mmol/L [facility] BUN 16 6 - 25 mg/dL [facility] Creatinine 3.94(H) 0.60 - 1.10 mg/dL [facility] Calcium 8.4(L) 8.5 - 10.3 mg/dL [facility] Protein, pl 7.7 6.5 - 8.5 g/dL [facility] Albumin 2.5(L) 3.5 - 5.0 g/dL [facility] Bilirubin, total 0.5 0.1 - 1.2 mg/dL [facility] Alk phos 169(H) 40 - 130 Units/L [facility] AST 19 10 - 45 Units/L [facility] ALT 11 7 - 45 Units/L [facility] Blood 12/24/2024 1:45 PM PROJECT MANAGEMENT ENGINEER 12/24/2024 3:38 PM PROJECT MANAGEMENT ENGINEER Irma Arias MD LAB BLOOD ORDERABLES Final Resu lt Performing Organization Address [facility] Co de Phone Number [facility] [place] [address] * (ABNORMAL) CBC with auto differential (12/24/2024 1:45 PM PROJECT MANAGEMENT ENGINEER) WBC 4.7 3.8 - 9.9 K/cumm Hgb 8.7(L) 11.9 - 15.5 g/dL [facility] Hct 27.7(L) 35.6 - 45.5 % [facility] Plt 169 150 - 400 K/cumm [facility] MPV 11.4 9.1 - 12.3 fL [facility] RBC 2.84(L) 3.90 - 5.20 M/cumm [facility] MCV 97.5(H) 81.3 - 96.4 fL [facility] MCH 30.6 27.1 - 33.3 pg [facility] MCHC 31.4(L) 32.3 - 35.7 g/dL [facility] RDW CV 17.2(H) 11.1 - 14.9 % [facility] RDW SD 58.4(H) 35.7 - 48.1 fL [facility] NRBC abs 0.00 0.00 - 0.01 K/cumm [facility] Blood 12/24/2024 1:45 PM PROJECT MANAGEMENT ENGINEER 12/24/2024 3:38 PM PROJECT MANAGEMENT ENGINEER Irma Arias MD LAB BLOOD ORDERABLES Final Resu lt Performing Organization Address [facility]/ZIP Co de Phone Number [facility] [place] [address] * Glucose, random (Outreach) (12/17/2024 11:00 AM PROJECT MANAGEMENT ENGINEER) Glucose 112 70 - 199 mg/dL Comment: [...] revised 2022. Blood 12/17/2024 11:0 0 AM PROJECT MANAGEMENT ENGINEER 12/17/2024 2:17 PM PROJECT MANAGEMENT ENGINEER us Irma Arias MD LAB BLOOD ORDERABLES Final Resu lt [facility] [address] Department [place] [address] * (ABNORMAL) eGFR (12/17/2024 11:00 AM PROJECT MANAGEMENT ENGINEER) eGFR 12(L) >=60 mL/min/1. 73 m2 Comment: [...] reviewed 2021. Blood 12/17/2024 11:0 0 AM PROJECT MANAGEMENT ENGINEER 12/17/2024 3:40 PM PROJECT MANAGEMENT ENGINEER us Irma Arias MD LAB BLOOD ORDERABLES Final Resu lt [facility] [address] Department [place] [address] * (ABNORMAL) Differential, auto (12/17/2024 11:00 AM PROJECT MANAGEMENT ENGINEER) Neutrophil abs 3.9 1.5 - 6.5 K/cumm Imm gran abs 0.0 0.0 - 0.1 K/cumm [facility] Lymphocyte abs 0.7(L) 0.8 - 3.3 K/cumm [facility] Monocyte abs 0.4 0.2 - 0.8 K/cumm [facility] Eosinophil abs 0.1 0.0 - 0.5 K/cumm [facility] Basophil abs 0.0 0.0 - 0.1 K/cumm [facility] Neutrophil pct 77.1 % [facility] Comment: Interpretive Data Percent cell count reference ranges are not reported, since discordance with absolute values may lead to misinterpretation of CBC data. Current Interpretive Data was last revised on 2018. Imm gran pct 0.2 % [facility] Comment: Interpretive Data Percent cell count reference ranges are not reported, since discordance with absolute values may lead to misinterpretation of CBC data. Current Interpretive Data was last revised on 2018. Lymphocyte pct 12.8 % [facility] Comment: Interpretive Data Percent cell count reference ranges are not reported, since discordance with absolute values may lead to misinterpretation of CBC data. Current Interpretive Data was last revised on 2018. Monocyte pct 7.7 % [facility] Comment: Interpretive Data Percent cell count reference ranges are not reported, since discordance with absolute values may lead to misinterpretation of CBC data. Current Interpretive Data was last revised on 2018. Eosinophil pct 1.6 % [facility] Comment: Interpretive Data Percent cell count reference ranges are not reported, since discordance with absolute values may lead to misinterpretation of CBC data. Current Interpretive Data was last revised on 2018. Basophil pct 0.6 % [facility] Comment: Interpretive Data Percent cell count reference ranges are not reported, since discordance with absolute values may lead to misinterpretation of CBC data. Current Interpretive Data was last revised on 2018. Blood 12/17/2024 11:0 0 AM PROJECT MANAGEMENT ENGINEER 12/17/2024 2:20 PM PROJECT MANAGEMENT ENGINEER Irma Arias MD LAB BLOOD ORDERABLES Final Resu lt [facility] [address] Department [place] [address] * (ABNORMAL) Comprehensive metabolic panel, without glucose (Outreach) (12/17/2024 11:00 AM PROJECT MANAGEMENT ENGINEER) Sodium 140 135 - 145 mmol/L Potassium, pl 3.5 3.3 - 4.9 mmol/L [facility] Chloride 99 97 - 110 mmol/L [facility] CO2 32 22 - 32 mmol/L [facility] Anion gap 9 2 - 15 mmol/L [facility] BUN 13 6 - 25 mg/dL [facility] Creatinine 4.28(H) 0.60 - 1.10 mg/dL [facility] Calcium 8.1(L) 8.5 - 10.3 mg/dL [facility] Protein, pl 7.0 6.5 - 8.5 g/dL [facility] Albumin 2.5(L) 3.5 - 5.0 g/dL [facility] Bilirubin, total 0.4 0.1 - 1.2 mg/dL [facility] Alk phos 130 40 - 130 Units/L [facility] AST 21 10 - 45 Units/L [facility] ALT 15 7 - 45 Units/L [facility] Blood 12/17/2024 11:0 0 AM PROJECT MANAGEMENT ENGINEER 12/17/2024 2:17 PM PROJECT MANAGEMENT ENGINEER Irma Arias MD LAB BLOOD ORDERABLES Final Resu lt [facility] [address] Department [place] [address] * (ABNORMAL) CBC with auto differential (12/17/2024 11:00 AM PROJECT MANAGEMENT ENGINEER) [facility] WBC 5.1 3.8 - 9.9 K/cumm Hgb 7.6(L) 11.9 - 15.5 g/dL [facility] Hct 23.9(L) 35.6 - 45.5 % [facility] Plt 212 150 - 400 K/cumm [facility] MPV 11.2 9.1 - 12.3 fL [facility] RBC 2.53(L) 3.90 - 5.20 M/cumm [facility] MCV 94.5 81.3 - 96.4 fL [facility] MCH 30.0 27.1 - 33.3 pg [facility] MCHC 31.8(L) 32.3 - 35.7 g/dL [facility] RDW CV 15.0(H) 11.1 - 14.9 % [facility] RDW SD 51.9(H) 35.7 - 48.1 fL [facility] NRBC abs 0.00 0.00 - 0.01 K/cumm [facility] Blood 12/17/2024 11:0 0 AM PROJECT MANAGEMENT ENGINEER 12/17/2024 2:20 PM PROJECT MANAGEMENT ENGINEER us Irma Arias MD LAB BLOOD ORDERABLES Final Resu lt [facility] [address] Department [place] [address] * (ABNORMAL) eGFR (12/11/2024 9:51 PM PROJECT MANAGEMENT ENGINEER) [facility] eGFR 20(L) >=60 mL/min/1. 73 m2 Comment: [...] last reviewed 2021. Blood 12/11/2024 9:51 PM PROJECT MANAGEMENT ENGINEER 12/11/2024 10:22 PM PROJECT MANAGEMENT ENGINEER us Nick Brown NP LAB BLOOD ORDERABLES Final Result [facility] Department [place] [address] * (ABNORMAL) Differential, auto (12/11/2024 9:51 PM PROJECT MANAGEMENT ENGINEER) Pathologist [facility] Neutrophil abs 4.8 1.5 - 6.5 K/cumm Imm gran abs 0.0 0.0 - 0.1 K/cumm [facility] Lymphocyte abs 0.6(L) 0.8 - 3.3 K/cumm [facility] Monocyte abs 0.4 0.2 - 0.8 K/cumm [facility] Eosinophil abs 0.0 0.0 - 0.5 K/cumm [facility] Basophil abs 0.0 0.0 - 0.1 K/cumm [facility] Neutrophil pct 82.2 % [facility] Comment: Interpretive Data Percent cell count reference ranges are not reported, since discordance with absolute values may lead to misinterpretation of CBC data. Current Interpretive Data was last revised on 2018. Imm gran pct 0.3 % [facility] Comment: Interpretive Data Percent cell count reference ranges are not reported, since discordance with absolute values may lead to misinterpretation of CBC data. Current Interpretive Data was last revised on 2018. Lymphocyte pct 9.8 % [facility] Comment: Interpretive Data Percent cell count reference ranges are not reported, since discordance with absolute values may lead to misinterpretation of CBC data. Current Interpretive Data was last revised on 2018. Monocyte pct 6.5 % [facility] Comment: Interpretive Data Percent cell count reference ranges are not reported, since discordance with absolute values may lead to misinterpretation of CBC data. Current Interpretive Data was last revised on 2018. Eosinophil pct 0.7 % [facility] Comment: Interpretive Data Percent cell count reference ranges are not reported, since discordance with absolute values may lead to misinterpretation of CBC data. Current Interpretive Data was last revised on 2018. Basophil pct 0.5 % [facility] Comment: Interpretive Data Percent cell count reference ranges are not reported, since discordance with absolute values may lead to misinterpretation of CBC data. Current Interpretive Data was last revised on 2018. Blood 12/11/2024 9:51 PM PROJECT MANAGEMENT ENGINEER 12/11/2024 10:25 PM PROJECT MANAGEMENT ENGINEER us Vj Oreilly MD LAB BLOOD ORDERABLES Sarah ley Result [facility] Department [place] [address] * (ABNORMAL) CBC without differential (12/11/2024 9:51 PM PROJECT MANAGEMENT ENGINEER) WBC 6.1 3.8 - 9.9 K/cumm Hgb 7.7(L) 11.9 - 15.5 g/dL [facility] Hct 23.7(L) 35.6 - 45.5 % [facility] Plt 170 150 - 400 K/cumm [facility] MPV 10.5 9.1 - 12.3 fL [facility] RBC 2.63(L) 3.90 - 5.20 M/cumm [facility] MCV 90.1 81.3 - 96.4 fL [facility] MCH 29.3 27.1 - 33.3 pg [facility] MCHC 32.5 32.3 - 35.7 g/dL [facility] RDW CV 14.7 11.1 - 14.9 % [facility] RDW SD 48.6(H) 35.7 - 48.1 fL [facility] NRBC abs 0.00 0.00 - 0.01 K/cumm [facility] Blood 12/11/2024 9:51 PM PROJECT MANAGEMENT ENGINEER 12/11/2024 10:21 PM PROJECT MANAGEMENT ENGINEER Nick Brown NEWS CAMERA OPERATOR LAB BLOOD ORDERABLES Final Result Performing Organization Address City/[facility] Co de Phone Number [facility] [place] [address] * (ABNORMAL) Phosphorus (12/11/2024 9:51 PM PROJECT MANAGEMENT ENGINEER) Pathologist [facility] Phosphorus, pl 2.1(L) 2.3 - 4.5 mg/dL Blood 12/11/2024 9:51 PM PROJECT MANAGEMENT ENGINEER 12/11/2024 10:22 PM PROJECT MANAGEMENT ENGINEER Nick Brown NEWS CAMERA OPERATOR LAB BLOOD ORDERABLES Final Result Performing Organization Address [facility] Co de Phone Number [facility] [employer] [place] [address] * Magnesium (12/11/2024 9:51 PM PROJECT MANAGEMENT ENGINEER) [facility] Magnesium 2.1 1.4 - 2.5 mg/dL Blood 12/11/2024 9:51 PM PROJECT MANAGEMENT ENGINEER 12/11/2024 10:22 PM PROJECT MANAGEMENT ENGINEER Nick Brown NEWS CAMERA OPERATOR LAB BLOOD ORDERABLES Final Result Performing Organization Address [facility] Co de Phone Number [facility] [employer] [place] [address] * (ABNORMAL) Hepatic function panel (12/11/2024 9:51 PM PROJECT MANAGEMENT ENGINEER) Pathologist [facility] Bilirubin, total 0.4 0.1 - 1.2 mg/dL Bilirubin, direct <0.2 0.1 - 0.3 mg/dL [facility] Protein, pl 7.2 6.5 - 8.5 g/dL [facility] Albumin 2.2(L) 3.5 - 5.0 g/dL [facility] Alk phos 97 40 - 130 Units/L [facility] ALT 11 7 - 45 Units/L [facility] AST 30 10 - 45 Units/L [facility] Blood 12/11/2024 9:51 PM PROJECT MANAGEMENT ENGINEER 12/11/2024 10:22 PM PROJECT MANAGEMENT ENGINEER us Vj Oreilly MD LAB BLOOD ORDERABLES Sarah l Result [facility] Department [place] [address] * (ABNORMAL) Basic metabolic panel (12/11/2024 9:51 PM PROJECT MANAGEMENT ENGINEER) Pathologist [facility] Sodium 136 135 - 145 mmol/L Potassium, pl 4.0 3.3 - 4.9 mmol/L [facility] Chloride 98 97 - 110 mmol/L [facility] CO2 31 22 - 32 mmol/L [facility] Anion gap 7 2 - 15 mmol/L [facility] BUN 7 6 - 25 mg/dL [facility] Creatinine 2.70(H) 0.60 - 1.10 mg/dL [facility] Glucose 196 70 - 199 mg/dL [facility] Comment: Interpretive Data Fasting glucose >/= 126 [...] 2022. Calcium 7.6(L) 8.5 - 10.3 mg/dL [facility] Blood 12/11/2024 9:51 PM PROJECT MANAGEMENT ENGINEER 12/11/2024 10:22 PM PROJECT MANAGEMENT ENGINEER us Nick Brown NEWS CAMERA OPERATOR LAB BLOOD ORDERABLES Final Result Performing Organization Address [facility]/ZIP Co de Phone Number [facility] Department [place] [address] * (ABNORMAL) CBC without differential (12/10/2024 9:24 PM PROJECT MANAGEMENT ENGINEER) Pathologist [facility] WBC 5.8 3.8 - 9.9 K/cumm Hgb 7.6(L) 11.9 - 15.5 g/dL [facility] Hct 22.8(L) 35.6 - 45.5 % [facility] Plt 149(L) 150 - 400 K/cumm [facility] MPV 10.6 9.1 - 12.3 fL [facility] RBC 2.55(L) 3.90 - 5.20 M/cumm [facility] MCV 89.4 81.3 - 96.4 fL [facility] MCH 29.8 27.1 - 33.3 pg [facility] MCHC 33.3 32.3 - 35.7 g/dL [facility] RDW CV 15.2(H) 11.1 - 14.9 % [facility] RDW SD 49.1(H) 35.7 - 48.1 fL [facility] NRBC abs 0.00 0.00 - 0.01 K/cumm [facility] Blood 12/10/2024 9:24 PM PROJECT MANAGEMENT ENGINEER 12/10/2024 9:35 PM PROJECT MANAGEMENT ENGINEER us Edyta Guerrero NEWS CAMERA OPERATOR LAB BLOOD ORDERABLES Final Result [facility] [place] [address] * Type and screen (12/10/2024 8:34 PM PROJECT MANAGEMENT ENGINEER) Pathologist [facility] ABO Rh B Positive Radha, indirect Negative [facility] Blood 12/10/2024 8:34 PM PROJECT MANAGEMENT ENGINEER 12/10/2024 8:57 PM PROJECT MANAGEMENT ENGINEER Narrative MICHELET JARAMILLO - 12/10/2024 9:54 PM PROJECT MANAGEMENT ENGINEER Has the patient had Daratumumab or Isatuximab in the past 6 months?->Unknown Edda Segal NEWS CAMERA OPERATOR LAB BLOOD BANK TEST ORDERABLES Final Result Performing Organization Address City/[facility] Co de Phone Number [facility] [place] [address] * (ABNORMAL) eGFR (12/10/2024 8:31 PM PROJECT MANAGEMENT ENGINEER) [facility] eGFR 14(L) >=60 mL/min/1. 73 m2 Comment: [...] last reviewed 2021. Blood 12/10/2024 8:31 PM PROJECT MANAGEMENT ENGINEER 12/10/2024 8:51 PM PROJECT MANAGEMENT ENGINEER Nick Brown NEWS CAMERA OPERATOR LAB BLOOD ORDERABLES Final Result Performing Organization Address City/[facility] Co de Phone Number [facility] Department [place] [address] * (ABNORMAL) CBC without differential (12/10/2024 8:31 PM PROJECT MANAGEMENT ENGINEER) [facility] WBC 5.4 3.8 - 9.9 K/cumm Hgb 6.9(L) 11.9 - 15.5 g/dL [facility] Hct 20.9(L) 35.6 - 45.5 % [facility] Plt 129(L) 150 - 400 K/cumm [facility] MPV 11.1 9.1 - 12.3 fL [facility] RBC 2.33(L) 3.90 - 5.20 M/cumm [facility] MCV 89.7 81.3 - 96.4 fL [facility] MCH 29.6 27.1 - 33.3 pg [facility] MCHC 33.0 32.3 - 35.7 g/dL [facility] RDW CV 15.3(H) 11.1 - 14.9 % [facility] RDW SD 50.3(H) 35.7 - 48.1 fL [facility] NRBC abs 0.00 0.00 - 0.01 K/cumm [facility] Blood 12/10/2024 8:31 PM PROJECT MANAGEMENT ENGINEER 12/10/2024 8:51 PM PROJECT MANAGEMENT ENGINEER Nick Brown NEWS CAMERA OPERATOR LAB BLOOD ORDERABLES Final Result [facility] [employer] [place] [address] * Phosphorus (12/10/2024 8:31 PM PROJECT MANAGEMENT ENGINEER) [facility] Phosphorus, pl 2.3 2.3 - 4.5 mg/dL Blood 12/10/2024 8:31 PM PROJECT MANAGEMENT ENGINEER 12/10/2024 8:51 PM PROJECT MANAGEMENT ENGINEER Nick Brown NEWS CAMERA OPERATOR LAB BLOOD ORDERABLES Final Result Performing Organization Address [facility] Co de Phone Number [facility] Department [place] [address] * Magnesium (12/10/2024 8:31 PM PROJECT MANAGEMENT ENGINEER) [facility] Magnesium 2.0 1.4 - 2.5 mg/dL Blood 12/10/2024 8:31 PM PROJECT MANAGEMENT ENGINEER 12/10/2024 8:51 PM PROJECT MANAGEMENT ENGINEER Nick Brown NP LAB BLOOD ORDERABLES Final Result [facility] Department [place] [address] * (ABNORMAL) Basic metabolic panel (12/10/2024 8:31 PM PROJECT MANAGEMENT ENGINEER) [facility] Sodium 135 135 - 145 mmol/L Potassium, pl 3.6 3.3 - 4.9 mmol/L [facility] Chloride 100 97 - 110 mmol/L [facility] CO2 28 22 - 32 mmol/L [facility] Anion gap 7 2 - 15 mmol/L [facility] BUN 12 6 - 25 mg/dL [facility] Creatinine 3.80(H) 0.60 - 1.10 mg/dL [facility] Glucose 158 70 - 199 mg/dL [facility] Comment: Interpretive Data Fasting glucose >/= 126 [...] 2022. Calcium 7.2(L) 8.5 - 10.3 mg/dL [facility] Blood 12/10/2024 8:31 PM PROJECT MANAGEMENT ENGINEER 12/10/2024 8:51 PM PROJECT MANAGEMENT ENGINEER Nick Brown NP LAB BLOOD ORDERABLES Final Result Performing Organization Address City/[facility]/ZIP Co de Phone Number [facility] Department [place] [address] * Infection Prevention Leidy auris PCR, surveillance Axilla/Groin (12/10/2024 6:41 PM PROJECT MANAGEMENT ENGINEER) [facility] Leidy auris DNA Not Detected Not Detected [facility] Comment: Interpretive Data Testing performed by [facility] using the Jannie [email or web address] [id number] Leidy auris assay. This assay detects DNA from Leidy auris using Real-Time PCR. This assay is laboratory developed and is not cleared by the [facility] Food and Drug Administration. The performance characteristics have been verified by the [facility]. Axilla/Groin 12/10/2024 6:41 PM PROJECT MANAGEMENT ENGINEER 12/10/2024 7:05 PM PROJECT MANAGEMENT ENGINEER us Paco Hunter MD LAB MICROBIOLOGY - GENERAL ORDER CHERI Final Result [facility] Department [place] [address] [facility] * (ABNORMAL) CBC without differential (12/09/2024 9:36 PM PROJECT MANAGEMENT ENGINEER) [facility] WBC 6.1 3.8 - 9.9 K/cumm Hgb 7.9(L) 11.9 - 15.5 g/dL [facility] Hct 23.6(L) 35.6 - 45.5 % [facility] Plt 148(L) 150 - 400 K/cumm [facility] MPV 10.7 9.1 - 12.3 fL [facility] RBC 2.65(L) 3.90 - 5.20 M/cumm [facility] MCV 89.1 81.3 - 96.4 fL [facility] MCH 29.8 27.1 - 33.3 pg [facility] MCHC 33.5 32.3 - 35.7 g/dL [facility] RDW CV 15.3(H) 11.1 - 14.9 % [facility] RDW SD 50.2(H) 35.7 - 48.1 fL [facility] NRBC abs 0.00 0.00 - 0.01 K/cumm [facility] Blood 12/09/2024 9:36 PM PROJECT MANAGEMENT ENGINEER 12/09/2024 10:12 PM PROJECT MANAGEMENT ENGINEER Nick Brown NP LAB BLOOD ORDERABLES Final Result Performing Organization Address [facility] Co de Phone Number [facility] [place] [address] * (ABNORMAL) eGFR (12/09/2024 9:28 PM PROJECT MANAGEMENT ENGINEER) eGFR 22(L) >=60 mL/min/1. 73 m2 Comment: [...] last reviewed 2021. Blood 12/09/2024 9:28 PM PROJECT MANAGEMENT ENGINEER 12/09/2024 10:13 PM PROJECT MANAGEMENT ENGINEER Nick Brown NP LAB BLOOD ORDERABLES Final Result Performing Organization Address City/[facility] Co de Phone Number [facility] [employer] [place] [address] * (ABNORMAL) Phosphorus (12/09/2024 9:28 PM PROJECT MANAGEMENT ENGINEER) Phosphorus, pl 1.7(L) 2.3 - 4.5 mg/dL Blood 12/09/2024 9:28 PM PROJECT MANAGEMENT ENGINEER 12/09/2024 10:08 PM PROJECT MANAGEMENT ENGINEER Nick Brown NEWS CAMERA OPERATOR LAB BLOOD ORDERABLES Final Result Performing Organization Address [facility] Co de Phone Number [facility] [place] [address] * Magnesium (12/09/2024 9:28 PM PROJECT MANAGEMENT ENGINEER) [facility] Magnesium 1.9 1.4 - 2.5 mg/dL Blood 12/09/2024 9:28 PM PROJECT MANAGEMENT ENGINEER 12/09/2024 10:08 PM PROJECT MANAGEMENT ENGINEER Nick Brown NEWS CAMERA OPERATOR LAB BLOOD ORDERABLES Final Result Performing Organization Address [facility] de Phone Number [facility] [place] [address] * Creatine kinase (CK), total (12/09/2024 9:28 PM PROJECT MANAGEMENT ENGINEER) [facility] CK 36 30 - 200 Units/L Blood 12/09/2024 9:28 PM PROJECT MANAGEMENT ENGINEER 12/09/2024 10:08 PM PROJECT MANAGEMENT ENGINEER Vj Oreilly MD LAB BLOOD ORDERABLES Sarah l Result Performing Organization Address [facility] [place] [address] * (ABNORMAL) Basic metabolic panel (12/09/2024 9:28 PM PROJECT MANAGEMENT ENGINEER) [facility] Sodium 138 135 - 145 mmol/L Potassium, pl 4.0 3.3 - 4.9 mmol/L [facility] Chloride 101 97 - 110 mmol/L [facility] CO2 31 22 - 32 mmol/L [facility] Anion gap 6 2 - 15 mmol/L [facility] BUN 7 6 - 25 mg/dL [facility] Creatinine 2.54(H) 0.60 - 1.10 mg/dL [facility] Glucose 124 70 - 199 mg/dL [facility] Comment: Interpretive Data Fasting glucose >/= 126 [...] 2022. Calcium 7.4(L) 8.5 - 10.3 mg/dL [facility] Blood 12/09/2024 9:28 PM PROJECT MANAGEMENT ENGINEER 12/09/2024 10:08 PM PROJECT MANAGEMENT ENGINEER Nick Brown NEWS CAMERA OPERATOR LAB BLOOD ORDERABLES Final Result [facility] Department [place] [address] * IR Central Line Placement > 5 Years (12/09/2024 3:57 PM PROJECT MANAGEMENT ENGINEER) Anatomical Region Laterality Modality Body N/A X-Ray Angiograph y 12/09/2024 4:17 PM PROJECT MANAGEMENT ENGINEER Impressions 12/09/2024 4:41 PM PROJECT MANAGEMENT ENGINEER Successful nontunneled catheter placement. PLAN: The catheter [...] Solo Salgado M.D. Narrative 12/09/2024 4:41 PM PROJECT MANAGEMENT ENGINEER EXAMINATION: NONTUNNELED CENTRAL VENOUS CATHETER PLACEMENT (STD) [...] was obtained. Prior to beginning the procedure, [place] Protocol was used to confirm the patient's [...] was obtained. Prior to beginning the procedure, [place] Protocol was used to confirm the patient's [...] sult * (ABNORMAL) eGFR (12/08/2024 9:08 PM PROJECT MANAGEMENT ENGINEER) eGFR 11(L) >=60 mL/min/1. 73 m2 Comment: [...] last reviewed 2021. Blood 12/08/2024 9:08 PM PROJECT MANAGEMENT ENGINEER 12/08/2024 9:54 PM PROJECT MANAGEMENT ENGINEER Nick Brown NEWS CAMERA OPERATOR LAB BLOOD ORDERABLES Final Result Performing Organization Address City/[facility]/ZIP Co de Phone Number [facility] Department [place] [address] * (ABNORMAL) CBC without differential (12/08/2024 9:08 PM PROJECT MANAGEMENT ENGINEER) WBC 7.2 3.8 - 9.9 K/cumm Hgb 8.1(L) 11.9 - 15.5 g/dL [facility] Hct 24.4(L) 35.6 - 45.5 % [facility] Plt 145(L) 150 - 400 K/cumm [facility] MPV 10.8 9.1 - 12.3 fL [facility] RBC 2.74(L) 3.90 - 5.20 M/cumm [facility] MCV 89.1 81.3 - 96.4 fL [facility] MCH 29.6 27.1 - 33.3 pg [facility] MCHC 33.2 32.3 - 35.7 g/dL [facility] RDW CV 15.7(H) 11.1 - 14.9 % [facility] RDW SD 51.0(H) 35.7 - 48.1 fL [facility] NRBC abs 0.00 0.00 - 0.01 K/cumm [facility] Blood 12/08/2024 9:08 PM PROJECT MANAGEMENT ENGINEER 12/08/2024 9:55 PM PROJECT MANAGEMENT ENGINEER Nick Brown NP LAB BLOOD ORDERABLES Final Result Performing Organization Address City/[facility]/ZIP Co de Phone Number [facility] Department [place] [address] * Phosphorus (12/08/2024 9:08 PM PROJECT MANAGEMENT ENGINEER) [facility] Phosphorus, pl 2.4 2.3 - 4.5 mg/dL Blood 12/08/2024 9:08 PM PROJECT MANAGEMENT ENGINEER 12/08/2024 9:54 PM PROJECT MANAGEMENT ENGINEER Nick Brown NEWS CAMERA OPERATOR LAB BLOOD ORDERABLES Final Result Performing Organization Address City/[facility]/ZIP Co de Phone Number [facility] Department [place] [address] * Magnesium (12/08/2024 9:08 PM PROJECT MANAGEMENT ENGINEER) [facility] Magnesium 2.1 1.4 - 2.5 mg/dL Blood 12/08/2024 9:08 PM PROJECT MANAGEMENT ENGINEER 12/08/2024 9:54 PM PROJECT MANAGEMENT ENGINEER Nick Brown NEWS CAMERA OPERATOR LAB BLOOD ORDERABLES Final Result Performing Organization Address [facility] de Phone Number [facility] Department [place] [address] * (ABNORMAL) Basic metabolic panel (12/08/2024 9:08 PM PROJECT MANAGEMENT ENGINEER) [facility] Sodium 131(L) 135 - 145 mmol/L Potassium, pl 4.0 3.3 - 4.9 mmol/L [facility] Chloride 96(L) 97 - 110 mmol/L [facility] CO2 28 22 - 32 mmol/L [facility] Anion gap 7 2 - 15 mmol/L [facility] BUN 17 6 - 25 mg/dL [facility] Creatinine 4.41(H) 0.60 - 1.10 mg/dL [facility] Glucose 126 70 - 199 mg/dL [facility] Comment: Interpretive Data Fasting glucose >/= 126 [...] 2022. Calcium 7.8(L) 8.5 - 10.3 mg/dL [facility] Blood 12/08/2024 9:08 PM PROJECT MANAGEMENT ENGINEER 12/08/2024 9:54 PM PROJECT MANAGEMENT ENGINEER Nick Brown NEWS CAMERA OPERATOR LAB BLOOD ORDERABLES Final Result [facility] Department [place] [address] * (ABNORMAL) CBC without differential (12/08/2024 12:51 PM PROJECT MANAGEMENT ENGINEER) Pathologist [facility] WBC 7.5 3.8 - 9.9 K/cumm Hgb 8.3(L) 11.9 - 15.5 g/dL [facility] Hct 25.3(L) 35.6 - 45.5 % [facility] Plt 138(L) 150 - 400 K/cumm [facility] MPV 11.3 9.1 - 12.3 fL [facility] RBC 2.79(L) 3.90 - 5.20 M/cumm [facility] MCV 90.7 81.3 - 96.4 fL [facility] MCH 29.7 27.1 - 33.3 pg [facility] MCHC 32.8 32.3 - 35.7 g/dL [facility] RDW CV 15.5(H) 11.1 - 14.9 % [facility] RDW SD 51.3(H) 35.7 - 48.1 fL [facility] NRBC abs 0.00 0.00 - 0.01 K/cumm [facility] Blood 12/08/2024 12:5 1 PM PROJECT MANAGEMENT ENGINEER 12/08/2024 1:23 PM PROJECT MANAGEMENT ENGINEER Nick Brown NEWS CAMERA OPERATOR LAB BLOOD ORDERABLES Final Result [facility] Department [place] [address] * XR Chest 1 View (12/08/2024 9:10 AM PROJECT MANAGEMENT ENGINEER) Anatomical Region Laterality Modality Body, Chest N/A Computed Radiogr aphy 12/09/2024 11:0 6 AM PROJECT MANAGEMENT ENGINEER Impressions 12/09/2024 11:06 AM PROJECT MANAGEMENT ENGINEER Comparison to 12/06/2024. There is a right-sided [...] Nas Mishra M.D. Narrative 12/09/2024 11:06 AM PROJECT MANAGEMENT ENGINEER EXAMINATION: 1 view chest radiograph Procedure Note [...] CT Chest WO Contrast (12/08/2024 8:57 AM PROJECT MANAGEMENT ENGINEER) Anatomical Region Laterality Modality Body N/A Computed Tomogra phy 12/08/2024 9:50 AM PROJECT MANAGEMENT ENGINEER Impressions 12/08/2024 10:53 AM PROJECT MANAGEMENT ENGINEER 1. Postsurgical changes of median sternotomy for [...] Enzo Jean-Baptiste M.D. Narrative 12/08/2024 10:53 AM PROJECT MANAGEMENT ENGINEER EXAMINATION: CT CHEST WO CONTRAST HISTORY: Evaluate [...] it. Electronically signed by: Enzo Jean-Baptiste M.D. us Nick Brown NEWS CAMERA OPERATOR IMG CT PROCEDURES Final Re sult * Transfuse RBC (12/08/2024 8:06 AM PROJECT MANAGEMENT ENGINEER) Blood us Vj Oreilly MD BLOOD TRANSFUSION ORDERAB LES Final Result [facility] [place] [address] * Prepare RBC: 1 Units (12/08/2024 5:06 AM PROJECT MANAGEMENT ENGINEER) [facility] Signature Product code [id number] Unit Number [id number] [facility] Product Blood Type BPOS [facility] Dispense Status PRESUMED TRANSFUSED [facility] Blood 12/08/2024 5:06 AM PROJECT MANAGEMENT ENGINEER 12/08/2024 5:08 AM PROJECT MANAGEMENT ENGINEER Narrative [facility] - 12/08/2024 8:00 PM PROJECT MANAGEMENT ENGINEER Are special requirements needed? (All products are leukoreduced and CMV- safe)- >No Date required:-[id number] LRRBC # of [id number] Reasons:-Hgb <7 g/dL} Vj Oreilly MD BLOOD BANK PRODUCT ORDERA BLES Final Result Performing Organization Address [facility]/ZIP Co de Phone Number [facility] Department [place] [address] * (ABNORMAL) CBC without differential (12/08/2024 3:40 AM PROJECT MANAGEMENT ENGINEER) [facility] WBC 5.7 3.8 - 9.9 K/cumm Hgb 6.5(L) 11.9 - 15.5 g/dL [facility] Hct 19.8(L) 35.6 - 45.5 % [facility] Plt 117(L) 150 - 400 K/cumm [facility] MPV 11.5 9.1 - 12.3 fL [facility] RBC 2.19(L) 3.90 - 5.20 M/cumm [facility] MCV 90.4 81.3 - 96.4 fL [facility] MCH 29.7 27.1 - 33.3 pg [facility] MCHC 32.8 32.3 - 35.7 g/dL [facility] RDW CV 15.1(H) 11.1 - 14.9 % [facility] RDW SD 50.4(H) 35.7 - 48.1 fL [facility] NRBC abs 0.00 0.00 - 0.01 K/cumm [facility] Blood 12/08/2024 3:40 AM PROJECT MANAGEMENT ENGINEER 12/08/2024 4:46 AM PROJECT MANAGEMENT ENGINEER Vj Oreilly MD LAB BLOOD ORDERABLES Sarah l Result Performing Organization Address City/[facility]/ZIP Co de Phone Number [facility] [employer] [place] [address] * Type and screen (12/08/2024 3:40 AM PROJECT MANAGEMENT ENGINEER) ABO Rh B Positive Radha, indirect Negative [facility] Blood 12/08/2024 3:40 AM PROJECT MANAGEMENT ENGINEER 12/08/2024 5:34 AM PROJECT MANAGEMENT ENGINEER us Vj Oreilly MD LAB BLOOD BANK TEST [place] [address] * (ABNORMAL) eGFR (12/07/2024 8:59 PM PROJECT MANAGEMENT ENGINEER) eGFR 20(L) >=60 mL/min/1. 73 m2 Comment: [...] last reviewed 2021. Blood 12/07/2024 8:59 PM PROJECT MANAGEMENT ENGINEER 12/07/2024 10:10 PM PROJECT MANAGEMENT ENGINEER us Nick Brown NP LAB BLOOD ORDERABLES Final Result [facility] [place] [address] * (ABNORMAL) CBC without differential (12/07/2024 8:59 PM PROJECT MANAGEMENT ENGINEER) [facility] WBC 8.3 3.8 - 9.9 K/cumm Hgb 7.4(L) 11.9 - 15.5 g/dL [facility] Hct 22.9(L) 35.6 - 45.5 % [facility] Plt 144(L) 150 - 400 K/cumm [facility] MPV 11.4 9.1 - 12.3 fL [facility] RBC 2.49(L) 3.90 - 5.20 M/cumm [facility] MCV 92.0 81.3 - 96.4 fL [facility] MCH 29.7 27.1 - 33.3 pg [facility] MCHC 32.3 32.3 - 35.7 g/dL [facility] RDW CV 15.2(H) 11.1 - 14.9 % [facility] RDW SD 50.8(H) 35.7 - 48.1 fL [facility] NRBC abs 0.00 0.00 - 0.01 K/cumm [facility] Blood 12/07/2024 8:59 PM PROJECT MANAGEMENT ENGINEER 12/07/2024 10:10 PM PROJECT MANAGEMENT ENGINEER Nick Brown NEWS CAMERA OPERATOR LAB BLOOD ORDERABLES Final Result Performing Organization Address [facility] de Phone Number [facility] Department [place] [address] * (ABNORMAL) Phosphorus (12/07/2024 8:59 PM PROJECT MANAGEMENT ENGINEER) [facility] Phosphorus, pl 2.1(L) 2.3 - 4.5 mg/dL Blood 12/07/2024 8:59 PM PROJECT MANAGEMENT ENGINEER 12/07/2024 10:10 PM PROJECT MANAGEMENT ENGINEER Nick Brown NEWS CAMERA OPERATOR LAB BLOOD ORDERABLES Final Result Performing Organization Address [facility] de Phone Number [facility] Department [place] [address] * Magnesium (12/07/2024 8:59 PM PROJECT MANAGEMENT ENGINEER) Pathologist [facility] Magnesium 2.0 1.4 - 2.5 mg/dL Blood 12/07/2024 8:59 PM PROJECT MANAGEMENT ENGINEER 12/07/2024 10:10 PM PROJECT MANAGEMENT ENGINEER Nick Brown NEWS CAMERA OPERATOR LAB BLOOD ORDERABLES Final Result [facility] Department [place] [address] * (ABNORMAL) Basic metabolic panel (12/07/2024 8:59 PM PROJECT MANAGEMENT ENGINEER) Pathologist [facility] Sodium 135 135 - 145 mmol/L Potassium, pl 3.3 3.3 - 4.9 mmol/L [facility] Chloride 96(L) 97 - 110 mmol/L [facility] CO2 31 22 - 32 mmol/L [facility] Anion gap 8 2 - 15 mmol/L [facility] BUN 9 6 - 25 mg/dL [facility] Creatinine 2.76(H) 0.60 - 1.10 mg/dL [facility] Glucose 86 70 - 199 mg/dL [facility] Comment: Interpretive Data Fasting glucose >/= 126 [...] 2022. Calcium 7.6(L) 8.5 - 10.3 mg/dL [facility] Blood 12/07/2024 8:59 PM PROJECT MANAGEMENT ENGINEER 12/07/2024 10:10 PM PROJECT MANAGEMENT ENGINEER Nick Brown NP LAB BLOOD ORDERABLES Final Result Performing Organization Address [facility] de Phone Number [facility] [place] [address] * (ABNORMAL) eGFR (12/06/2024 9:25 PM PROJECT MANAGEMENT ENGINEER) Pathologist [facility] eGFR 12(L) >=60 mL/min/1. 73 m2 Comment: [...] last reviewed 2021. Blood 12/06/2024 9:25 PM PROJECT MANAGEMENT ENGINEER 12/06/2024 9:55 PM PROJECT MANAGEMENT ENGINEER Nick Brown NP LAB BLOOD ORDERABLES Final Result Performing Organization Address City/[facility] Co de Phone Number [facility] Department [place] [address] * (ABNORMAL) CBC without differential (12/06/2024 9:25 PM PROJECT MANAGEMENT ENGINEER) [facility] WBC 10.6(H) 3.8 - 9.9 K/cumm Hgb 8.9(L) 11.9 - 15.5 g/dL [facility] Hct 27.8(L) 35.6 - 45.5 % [facility] Plt 124(L) 150 - 400 K/cumm [facility] MPV 10.6 9.1 - 12.3 fL [facility] RBC 3.06(L) 3.90 - 5.20 M/cumm [facility] MCV 90.8 81.3 - 96.4 fL [facility] MCH 29.1 27.1 - 33.3 pg [facility] MCHC 32.0(L) 32.3 - 35.7 g/dL [facility] RDW CV 15.5(H) 11.1 - 14.9 % [facility] RDW SD 52.0(H) 35.7 - 48.1 fL [facility] NRBC abs 0.00 0.00 - 0.01 K/cumm [facility] Blood 12/06/2024 9:25 PM PROJECT MANAGEMENT ENGINEER 12/06/2024 9:55 PM PROJECT MANAGEMENT ENGINEER Nick Brown NEWS CAMERA OPERATOR LAB BLOOD ORDERABLES Final Result Performing Organization Address City/[facility]/ZIP Co de Phone Number [facility] Department [place] [address] * Phosphorus (12/06/2024 9:25 PM PROJECT MANAGEMENT ENGINEER) Phosphorus, pl 3.4 2.3 - 4.5 mg/dL Blood 12/06/2024 9:25 PM PROJECT MANAGEMENT ENGINEER 12/06/2024 9:55 PM PROJECT MANAGEMENT ENGINEER Nick Brown NEWS CAMERA OPERATOR LAB BLOOD ORDERABLES Final Result [facility] [place] [address] * Magnesium (12/06/2024 9:25 PM PROJECT MANAGEMENT ENGINEER) Magnesium 2.2 1.4 - 2.5 mg/dL Blood 12/06/2024 9:25 PM PROJECT MANAGEMENT ENGINEER 12/06/2024 9:55 PM PROJECT MANAGEMENT ENGINEER Nick Brown NP LAB BLOOD ORDERABLES Final Result [facility] Department [place] [address] * (ABNORMAL) Basic metabolic panel (12/06/2024 9:25 PM PROJECT MANAGEMENT ENGINEER) Pathologist [facility] Sodium 133(L) 135 - 145 mmol/L Potassium, pl 3.6 3.3 - 4.9 mmol/L [facility] Chloride 93(L) 97 - 110 mmol/L [facility] CO2 29 22 - 32 mmol/L [facility] Anion gap 11 2 - 15 mmol/L [facility] BUN 18 6 - 25 mg/dL [facility] Creatinine 4.36(H) 0.60 - 1.10 mg/dL [facility] Glucose 125 70 - 199 mg/dL [facility] Comment: Interpretive Data Fasting glucose >/= 126 [...] 2022. Calcium 8.1(L) 8.5 - 10.3 mg/dL [facility] Blood 12/06/2024 9:25 PM PROJECT MANAGEMENT ENGINEER 12/06/2024 9:55 PM PROJECT MANAGEMENT ENGINEER Nick Brown NP LAB BLOOD ORDERABLES Final Result Performing Organization Address [facility]/ZIP Co de Phone Number [facility] Department [place] [address] * TRANSTHORACIC ECHO (TTE) COMPLETE W DOPPLER/CF W CONTRAST (12/06/2024 4:48 PM PROJECT MANAGEMENT ENGINEER) [facility] LV EF % CONS SCIMAGE Anatomical Region Laterality Modality Ultrasound 12/06/2024 3:11 PM PROJECT MANAGEMENT ENGINEER Narrative 12/06/2024 5:41 PM PROJECT MANAGEMENT ENGINEER [facility] [place] [address] Transthoracic Echocardiographic Report Patient Name: QUIN MILLER J : 1970 (54y 4m) Gender: F Study Date: 12/06/2024 03:11:50 PM Ht(Inch): 63 Wt(Lb): 136.02 BSA: 1.66 Quality Assurance Associate: Ludy Dickerson [facility] Location: [id number] Order Provider: NICK BROWN Heart Rate: 81 BMI: 24.09 BP: 130 / 76 Quality: The study images were of technically good quality. Ref Provider: NICK BROWN PROCEDURES: Echocardiographic Report: ([id number]) Transthoracic complete echo with strain imaging and [...] By: Andie Lutz MD 12/06/2024 5:40:59 PM PROJECT MANAGEMENT ENGINEER Electronically Signed By: nAdie Lutz MD 12/06/2024 5:40:59 PM PROJECT MANAGEMENT ENGINEER Procedure Note Andie Lutz, - 12/06/2024 [facility] [place] [address] Transthoracic Echocardiographic Report Patient Name: QUIN MILLER J : 1970 (54y 4m) Gender: F Study Date: 12/06/2024 03:11:50 PM Ht(Inch): 63 Wt(Lb): 136.02 BSA: 1.66 Quality Assurance Associate: Ludy Dickerson [facility] Location: [id number] Order Provider:NICK BROWN Heart Rate: 81 BMI: 24.09 BP: 130 / 76 Quality: The study images were oftechnically good quality. Ref Provider: NICK BROWN PROCEDURES: Echocardiographic Report: ([id number], [id number]) Transthoracic complete echo withstrain imaging and contrast, [...] [ 2.5 - 4.2 ] MV Decel [id number] msec [ 104.00 - 258.00 ] TAPSE [...] By: Andie Lutz MD 12/06/2024 5:40:59 PM PROJECT MANAGEMENT ENGINEER Electronically Signed By: Andie Lutz MD 12/06/2024 5:40:59 PM PROJECT MANAGEMENT ENGINEER us Nick Brown NP CV ECHO PROCEDURES Final R esult * XR Chest Pa Lateral 2 Views (12/06/2024 12:28 PM PROJECT MANAGEMENT ENGINEER) Anatomical Region Laterality Modality Body, Chest N/A Computed Radiogr aphy 12/06/2024 12:3 1 PM PROJECT MANAGEMENT ENGINEER Impressions 12/06/2024 12:31 PM PROJECT MANAGEMENT ENGINEER The current study is compared with the [...] Mcgraw MD, PHD Narrative 12/06/2024 12:31 PM PROJECT MANAGEMENT ENGINEER EXAMINATION: 2 view chest radiograph Procedure Note [...] Pramod Mcgraw MD, PHD us Nick Brown NEWS CAMERA OPERATOR IMG XR PROCEDURES Final Re sult * POCT glucose (12/06/2024 7:58 AM PROJECT MANAGEMENT ENGINEER) Glucose, POC 112 70 - 199 mg/dL Blood 12/06/2024 7:58 AM PROJECT MANAGEMENT ENGINEER 12/06/2024 7:58 AM PROJECT MANAGEMENT ENGINEER Vj Oreilly MD LAB POCT ORDERABLES - DEV ICE Final Result Performing Organization Address City/[facility]/ZIP Co de Phone Number [facility] Department [place] [address] * POCT glucose (12/05/2024 9:03 PM PROJECT MANAGEMENT ENGINEER) [facility] Glucose, POC 131 70 - 199 mg/dL Blood 12/05/2024 9:03 PM PROJECT MANAGEMENT ENGINEER 12/05/2024 9:03 PM PROJECT MANAGEMENT ENGINEER Vj Oreilly MD LAB POCT ORDERABLES - DEV ICE Final Result Performing Organization Address City/[facility] Co de Phone Number [facility] Department [place] [address] * (ABNORMAL) eGFR (12/05/2024 7:45 PM PROJECT MANAGEMENT ENGINEER) Pathologist [facility] eGFR 22(L) >=60 mL/min/1. 73 m2 Comment: [...] last reviewed 2021. Blood 12/05/2024 7:45 PM PROJECT MANAGEMENT ENGINEER 12/05/2024 8:28 PM PROJECT MANAGEMENT ENGINEER us Nick Brown NP LAB BLOOD ORDERABLES Final Result [facility] Department [place] [address] * (ABNORMAL) Differential, auto (12/05/2024 7:45 PM PROJECT MANAGEMENT ENGINEER) Neutrophil abs 11.3(H) 1.5 - 6.5 K/cumm Imm gran abs 0.1 0.0 - 0.1 K/cumm [facility] Lymphocyte abs 0.7(L) 0.8 - 3.3 K/cumm [facility] Monocyte abs 0.9(H) 0.2 - 0.8 K/cumm [facility] Eosinophil abs 0.1 0.0 - 0.5 K/cumm [facility] Basophil abs 0.0 0.0 - 0.1 K/cumm [facility] Neutrophil pct 86.1 % [facility] Comment: Interpretive Data Percent cell count reference ranges are not reported, since discordance with absolute values may lead to misinterpretation of CBC data. Current Interpretive Data was last revised on 2018. Imm gran pct 0.4 % [facility] Comment: Interpretive Data Percent cell count reference ranges are not reported, since discordance with absolute values may lead to misinterpretation of CBC data. Current Interpretive Data was last revised on 2018. Lymphocyte pct 5.3 % [facility] Comment: Interpretive Data Percent cell count reference ranges are not reported, since discordance with absolute values may lead to misinterpretation of CBC data. Current Interpretive Data was last revised on 2018. Monocyte pct 7.1 % [facility] Comment: Interpretive Data Percent cell count reference ranges are not reported, since discordance with absolute values may lead to misinterpretation of CBC data. Current Interpretive Data was last revised on 2018. Eosinophil pct 0.9 % [facility] Comment: Interpretive Data Percent cell count reference ranges are not reported, since discordance with absolute values may lead to misinterpretation of CBC data. Current Interpretive Data was last revised on 2018. Basophil pct 0.2 % [facility] Comment: Interpretive Data Percent cell count reference ranges are not reported, since discordance with absolute values may lead to misinterpretation of CBC data. Current Interpretive Data was last revised on 2018. Blood 12/05/2024 7:45 PM PROJECT MANAGEMENT ENGINEER 12/05/2024 8:31 PM PROJECT MANAGEMENT ENGINEER us Vj Oreilly MD LAB BLOOD ORDERABLES Sarah ley Result [facility] Department [place] [address] * (ABNORMAL) CBC with auto differential (12/05/2024 7:45 PM PROJECT MANAGEMENT ENGINEER) WBC 13.1(H) 3.8 - 9.9 K/cumm Hgb 10.2(L) 11.9 - 15.5 g/dL [facility] Hct 30.9(L) 35.6 - 45.5 % [facility] Plt 123(L) 150 - 400 K/cumm [facility] MPV 10.8 9.1 - 12.3 fL [facility] RBC 3.39(L) 3.90 - 5.20 M/cumm [facility] MCV 91.2 81.3 - 96.4 fL [facility] MCH 30.1 27.1 - 33.3 pg [facility] MCHC 33.0 32.3 - 35.7 g/dL [facility] RDW CV 16.1(H) 11.1 - 14.9 % [facility] RDW SD 52.9(H) 35.7 - 48.1 fL [facility] NRBC abs 0.00 0.00 - 0.01 K/cumm [facility] Blood 12/05/2024 7:45 PM PROJECT MANAGEMENT ENGINEER 12/05/2024 8:31 PM PROJECT MANAGEMENT ENGINEER Vj Oreilly MD LAB BLOOD ORDERABLES Sarah l Result Performing Organization Address City/[facility]/ZIP Co de Phone Number [facility] [employer] [place] [address] * (ABNORMAL) CBC without differential (12/05/2024 7:45 PM PROJECT MANAGEMENT ENGINEER) [facility] WBC 13.1(H) 3.8 - 9.9 K/cumm Hgb 10.2(L) 11.9 - 15.5 g/dL [facility] Hct 30.9(L) 35.6 - 45.5 % [facility] Plt 123(L) 150 - 400 K/cumm [facility] MPV 10.8 9.1 - 12.3 fL [facility] RBC 3.39(L) 3.90 - 5.20 M/cumm [facility] MCV 91.2 81.3 - 96.4 fL [facility] MCH 30.1 27.1 - 33.3 pg [facility] MCHC 33.0 32.3 - 35.7 g/dL [facility] RDW CV 16.1(H) 11.1 - 14.9 % [facility] RDW SD 52.9(H) 35.7 - 48.1 fL [facility] NRBC abs 0.00 0.00 - 0.01 K/cumm [facility] Blood 12/05/2024 7:45 PM PROJECT MANAGEMENT ENGINEER 12/05/2024 8:28 PM PROJECT MANAGEMENT ENGINEER us Nick Brown NP LAB BLOOD ORDERABLES Final Result Performing Organization Address City/[facility]/ZIP Co de Phone Number [facility] [employer] [place] [address] * Phosphorus (12/05/2024 7:45 PM PROJECT MANAGEMENT ENGINEER) Pathologist [facility] Phosphorus, pl 3.7 2.3 - 4.5 mg/dL Blood 12/05/2024 7:45 PM PROJECT MANAGEMENT ENGINEER 12/05/2024 8:28 PM PROJECT MANAGEMENT ENGINEER Result [facility] Nick Brown NEWS CAMERA OPERATOR LAB BLOOD ORDERABLES Final Result Performing Organization Address [facility] de Phone Number [facility] Department [place] [address] * Magnesium (12/05/2024 7:45 PM PROJECT MANAGEMENT ENGINEER) [facility] Magnesium 1.9 1.4 - 2.5 mg/dL Blood 12/05/2024 7:45 PM PROJECT MANAGEMENT ENGINEER 12/05/2024 8:28 PM PROJECT MANAGEMENT ENGINEER Result [facility] Nick Brown NEWS CAMERA OPERATOR LAB BLOOD ORDERABLES Final Result Performing Organization Address [facility] de Phone Number [facility] Department [place] [address] * (ABNORMAL) Hepatic function panel (12/05/2024 7:45 PM PROJECT MANAGEMENT ENGINEER) [facility] Bilirubin, total 0.5 0.1 - 1.2 mg/dL Bilirubin, direct <0.2 0.1 - 0.3 mg/dL [facility] Protein, pl 7.6 6.5 - 8.5 g/dL [facility] Albumin 2.6(L) 3.5 - 5.0 g/dL [facility] Alk phos 70 40 - 130 Units/L [facility] ALT 9 7 - 45 Units/L [facility] AST 47(H) 10 - 45 Units/L [facility] Blood 12/05/2024 7:45 PM PROJECT MANAGEMENT ENGINEER 12/05/2024 8:28 PM PROJECT MANAGEMENT ENGINEER Vj Oreilly MD LAB BLOOD ORDERABLES Sarah l Result [facility] Department [place] [address] * (ABNORMAL) Basic metabolic panel (12/05/2024 7:45 PM PROJECT MANAGEMENT ENGINEER) Sodium 134(L) 135 - 145 mmol/L Potassium, pl 4.4 3.3 - 4.9 mmol/L [facility] Chloride 96(L) 97 - 110 mmol/L [facility] CO2 30 22 - 32 mmol/L [facility] Anion gap 8 2 - 15 mmol/L [facility] BUN 8 6 - 25 mg/dL [facility] Creatinine 2.55(H) 0.60 - 1.10 mg/dL [facility] Glucose 130 70 - 199 mg/dL [facility] Comment: Interpretive Data Fasting glucose >/= 126 [...] 2022. Calcium 8.2(L) 8.5 - 10.3 mg/dL [facility] Blood 12/05/2024 7:45 PM PROJECT MANAGEMENT ENGINEER 12/05/2024 8:28 PM PROJECT MANAGEMENT ENGINEER Nick Brown NEWS CAMERA OPERATOR LAB BLOOD ORDERABLES Final Result Performing Organization Address City/[facility] Co de Phone Number [facility] Department [place] [address] * POCT glucose (12/05/2024 7:39 PM PROJECT MANAGEMENT ENGINEER) Glucose, POC 135 70 - 199 mg/dL Blood 12/05/2024 7:39 PM PROJECT MANAGEMENT ENGINEER 12/05/2024 7:39 PM PROJECT MANAGEMENT ENGINEER us Vj Oreilly MD LAB POCT ORDERABLES - DEV ICE Final Result Performing Organization Address [facility] de Phone Number [facility] [place] [address] * POCT glucose (12/05/2024 4:43 PM PROJECT MANAGEMENT ENGINEER) Glucose, POC 109 70 - 199 mg/dL Blood 12/05/2024 4:43 PM PROJECT MANAGEMENT ENGINEER 12/05/2024 4:43 PM PROJECT MANAGEMENT ENGINEER Vj Oreilly MD LAB POCT ORDERABLES - DEV ICE Final Result Performing Organization Address [facility] de Phone Number [facility] [place] [address] * (ABNORMAL) Potassium, whole blood (12/05/2024 11:49 AM PROJECT MANAGEMENT ENGINEER) Potassium, bld 2.9(L) 3.3 - 4.9 mmol/L Blood 12/05/2024 11:4 9 AM PROJECT MANAGEMENT ENGINEER 12/05/2024 12:02 PM PROJECT MANAGEMENT ENGINEER Edda Segal NEWS CAMERA OPERATOR LAB BLOOD ORDERABLE S Final Result Performing Organization Address [facility] de Phone Number [facility] Department [place] [address] * POCT glucose (12/05/2024 11:48 AM PROJECT MANAGEMENT ENGINEER) Glucose, POC 94 70 - 199 mg/dL Blood 12/05/2024 11:4 8 AM PROJECT MANAGEMENT ENGINEER 12/05/2024 11:48 AM PROJECT MANAGEMENT ENGINEER Vj Oreilly MD LAB POCT ORDERABLES - DEV ICE Final Result Performing Organization Address [facility] de Phone Number CERNER [facility] Department [place] [address] * Critical Care (12/05/2024 11:39 AM PROJECT MANAGEMENT ENGINEER) Narrative Sloan Rivas MD - 12/05/2024 11:39 AM PROJECT MANAGEMENT ENGINEER Josef Cardenas NP 12/05/2024 2:14 PM Critical [...] plan with the patient's team and other medical/x ray consultant staff. This time was in addition [...] in the medical record us Josef Cardenas NEWS CAMERA OPERATOR IN CLINIC/BEDSIDE ORDERABL ES Final Result * POCT glucose (12/05/2024 7:39 AM PROJECT MANAGEMENT ENGINEER) Glucose, POC 121 70 - 199 mg/dL Blood 12/05/2024 7:39 AM PROJECT MANAGEMENT ENGINEER 12/05/2024 7:39 AM PROJECT MANAGEMENT ENGINEER us Vj Oreilly MD LAB POCT ORDERABLES - DEV ICE Final Result [facility] Department [place] [address] * (ABNORMAL) Potassium, whole blood (12/05/2024 6:36 AM PROJECT MANAGEMENT ENGINEER) Potassium, bld 5.3(H) 3.3 - 4.9 mmol/L Blood 12/05/2024 6:36 AM PROJECT MANAGEMENT ENGINEER 12/05/2024 6:42 AM PROJECT MANAGEMENT ENGINEER Josef Cardenas NEWS CAMERA OPERATOR LAB BLOOD ORDERABLES Final Result Performing Organization Address [facility] de Phone Number [facility] [place] [address] * Tacrolimus level trough (12/05/2024 6:36 AM PROJECT MANAGEMENT ENGINEER) Tacrolimus trough 1.5 ng/mL Comment: Interpretive Data Testing performed by liquid chromatography-tandem mass spectrometry. Therapeutic concentrations vary depending on type of transplanted organ and time elapsed since transplant. Typical trough concentrations range from 5-15 ng/mL. This test was developed and its performance characteristics determined by the [facility] consistent with CLIA requirements. This test has not been cleared or approved by the [place] Food and Drug administration. Current interpretive data last reviewed 2020. Blood 12/05/2024 6:36 AM PROJECT MANAGEMENT ENGINEER 12/05/2024 6:47 AM PROJECT MANAGEMENT ENGINEER us Emely Berry NP LAB BLOOD ORDER CHERI Final Result Performing Organization Address [facility] de Phone Number MICHELET [facility] Department [employer] [place] [address] * POCT glucose (12/05/2024 4:24 AM PROJECT MANAGEMENT ENGINEER) Glucose, POC 116 70 - 199 mg/dL Blood 12/05/2024 4:24 AM PROJECT MANAGEMENT ENGINEER 12/05/2024 4:24 AM PROJECT MANAGEMENT ENGINEER Vj Oreilly MD LAB POCT ORDERABLES - DEV ICE Final Result Performing Organization Address [facility] Co de Phone Number MICHELET [facility] [employer] [place] [address] * (ABNORMAL) Potassium, whole blood (12/05/2024 1:25 AM PROJECT MANAGEMENT ENGINEER) Pathologist [facility] Potassium, bld 5.6(H) 3.3 - 4.9 mmol/L Blood 12/05/2024 1:25 AM PROJECT MANAGEMENT ENGINEER 12/05/2024 1:34 AM PROJECT MANAGEMENT ENGINEER us Nica Lozoya NEWS [employer] OPERATOR LAB BLOOD ORDERABLES Fi nal Result Performing Organization Address [facility] Co de Phone Number [facility] [place] [address] * (ABNORMAL) eGFR (12/05/2024 1:25 AM PROJECT MANAGEMENT ENGINEER) eGFR 13(L) >=60 mL/min/1. 73 m2 Comment: [...] last reviewed 2021. Blood 12/05/2024 1:25 AM PROJECT MANAGEMENT ENGINEER 12/05/2024 1:39 AM PROJECT MANAGEMENT ENGINEER us Edda Segal NEWS CAMERA OPERATOR LAB BLOOD ORDERABLE S Final Result Performing Organization Address [facility]/ZIP Co de Phone Number [facility] [employer] [place] [address] * POCT glucose (12/05/2024 1:25 AM PROJECT MANAGEMENT ENGINEER) Glucose, POC 124 70 - 199 mg/dL Blood 12/05/2024 1:25 AM PROJECT MANAGEMENT ENGINEER 12/05/2024 1:25 AM PROJECT MANAGEMENT ENGINEER us Vj Oreilly MD LAB POCT ORDERABLES - DEV ICE Final Result Performing Organization Address [facility] Co de Phone Number [facility] Department [place] [address] * (ABNORMAL) CBC without differential (12/05/2024 1:25 AM PROJECT MANAGEMENT ENGINEER) Pathologist [facility] WBC 14.2(H) 3.8 - 9.9 K/cumm Hgb 10.4(L) 11.9 - 15.5 g/dL [facility] Hct 31.5(L) 35.6 - 45.5 % [facility] Plt 141(L) 150 - 400 K/cumm [facility] MPV 10.6 9.1 - 12.3 fL [facility] RBC 3.54(L) 3.90 - 5.20 M/cumm [facility] MCV 89.0 81.3 - 96.4 fL [facility] MCH 29.4 27.1 - 33.3 pg [facility] MCHC 33.0 32.3 - 35.7 g/dL [facility] RDW CV 16.2(H) 11.1 - 14.9 % [facility] RDW SD 53.3(H) 35.7 - 48.1 fL [facility] NRBC abs 0.00 0.00 - 0.01 K/cumm [facility] Blood 12/05/2024 1:25 AM PROJECT MANAGEMENT ENGINEER 12/05/2024 1:39 AM PROJECT MANAGEMENT ENGINEER us Edda Segal NP LAB BLOOD ORDERABLE S Final Result Performing Organization Address [facility]/ZIP Co de Phone Number [facility] [place] [address] * Type and screen (12/05/2024 1:25 AM PROJECT MANAGEMENT ENGINEER) Pathologist [facility] ABO Rh B Positive Radha, indirect Negative [facility] Blood 12/05/2024 1:25 AM PROJECT MANAGEMENT ENGINEER 12/05/2024 1:38 AM PROJECT MANAGEMENT ENGINEER Narrative [facility] - 12/05/2024 3:44 AM PROJECT MANAGEMENT ENGINEER Has the patient had Daratumumab or Isatuximab in the past 6 months?->Unknown Edda Segal NEWS CAMERA OPERATOR LAB BLOOD BANK TEST ORDERABLES Final Result Performing Organization Address [facility] Co de Phone Number [facility] [place] [address] * Phosphorus (12/05/2024 1:25 AM PROJECT MANAGEMENT ENGINEER) Phosphorus, pl 3.1 2.3 - 4.5 mg/dL Blood 12/05/2024 1:25 AM PROJECT MANAGEMENT ENGINEER 12/05/2024 1:39 AM PROJECT MANAGEMENT ENGINEER Edda Segal LAB BLOOD ORDERABLE S Final Result Performing Organization Address [facility] de Phone Number [facility] [employer] [place] [address] * (ABNORMAL) Magnesium (12/05/2024 1:25 AM PROJECT MANAGEMENT ENGINEER) Magnesium 2.7(H) 1.4 - 2.5 mg/dL Blood 12/05/2024 1:25 AM PROJECT MANAGEMENT ENGINEER 12/05/2024 1:39 AM PROJECT MANAGEMENT ENGINEER [facility] BLOOD ORDERABLE S Final Result Performing Organization Address [facility] [place] [address] * (ABNORMAL) Basic metabolic panel (12/05/2024 1:25 AM PROJECT MANAGEMENT ENGINEER) Sodium 133(L) 135 - 145 mmol/L Potassium, pl 5.7(H) 3.3 - 4.9 mmol/L [facility] Chloride 102 97 - 110 mmol/L [facility] CO2 26 22 - 32 mmol/L [facility] Anion gap 5 2 - 15 mmol/L [facility] BUN 13 6 - 25 mg/dL [facility] Creatinine 3.96(H) 0.60 - 1.10 mg/dL [facility] Glucose 131 70 - 199 mg/dL [facility] Comment: Interpretive Data Fasting glucose >/= 126 [...] 2022. Calcium 8.7 8.5 - 10.3 mg/dL [facility] Blood 12/05/2024 1:25 AM PROJECT MANAGEMENT ENGINEER 12/05/2024 1:39 AM PROJECT MANAGEMENT ENGINEER us Edda Segal NP LAB BLOOD ORDERABLE S Final Result Performing Organization Address [facility]/ZIP Co de Phone Number [facility] Department [place] [address] * POCT glucose (12/04/2024 8:24 PM PROJECT MANAGEMENT ENGINEER) [facility] Signature Glucose, POC 117 70 - 199 mg/dL Blood 12/04/2024 8:24 PM PROJECT MANAGEMENT ENGINEER 12/04/2024 8:24 PM PROJECT MANAGEMENT ENGINEER us Vj Oreilly MD LAB POCT ORDERABLES - DEV ICE Final Result Performing Organization Address [facility]/ZIP Co de Phone Number [facility] Department [place] [address] * XR Chest 1 View - in PM (12/04/2024 7:41 PM PROJECT MANAGEMENT ENGINEER) Anatomical Region Laterality Modality Body, Chest N/A Computed Radiogr aphy 12/05/2024 9:03 AM PROJECT MANAGEMENT ENGINEER Impressions 12/05/2024 10:30 AM PROJECT MANAGEMENT ENGINEER Comparison is made to chest radiograph of [...] Electronically signed by: Enzo Jean-Baptiste M.D. Narrative 12/05/2024 10:30 AM PROJECT MANAGEMENT ENGINEER EXAMINATION: 1 view chest radiograph Procedure Note [...] it. Electronically signed by: Enzo Jean-Baptiste M.D. us Edda Segal NEWS CAMERA OPERATOR IMG XR PROCEDURES F inal Result * POCT glucose (12/04/2024 7:21 PM PROJECT MANAGEMENT ENGINEER) Glucose, POC 141 70 - 199 mg/dL Blood 12/04/2024 7:21 PM PROJECT MANAGEMENT ENGINEER 12/04/2024 7:21 PM PROJECT MANAGEMENT ENGINEER us Vj Oreilly MD LAB POCT ORDERABLES - DEV ICE Final Result [facility] Department [place] [address] * Critical Care (12/04/2024 6:30 PM PROJECT MANAGEMENT ENGINEER) Narrative Sloan Rivas MD - 12/04/2024 6:30 PM PROJECT MANAGEMENT ENGINEER Emely Berry NP 12/05/2024 5:51 AM Critical [...] plan with the ICU team and other medical/x ray consultant staff, making frequent assessments and decisions [...] (ABNORMAL) Potassium, whole blood (12/04/2024 6:13 PM PROJECT MANAGEMENT ENGINEER) Potassium, bld 5.1(H) 3.3 - 4.9 mmol/L Blood 12/04/2024 6:13 PM PROJECT MANAGEMENT ENGINEER 12/04/2024 6:48 PM PROJECT MANAGEMENT ENGINEER Result [facility] Nica Lozoya NP LAB BLOOD ORDERABLES Fi nal Result Performing Organization Address [facility] Co de Phone Number [facility] [place] [address] * POCT glucose (12/04/2024 6:13 PM PROJECT MANAGEMENT ENGINEER) Glucose, POC 192 70 - 199 mg/dL Blood 12/04/2024 6:13 PM PROJECT MANAGEMENT ENGINEER 12/04/2024 6:13 PM PROJECT MANAGEMENT ENGINEER Result [facility] Vj Oreilly MD LAB POCT ORDERABLES - DEV ICE Final Result Performing Organization Address [facility] de Phone Number [facility] Department [employer] [place] [address] * Infection Prevention Leidy auris PCR, surveillance Axilla/Groin (12/04/2024 5:39 PM PROJECT MANAGEMENT ENGINEER) Pathologist [facility] Leidy auris DNA Not Detected Not Detected [facility] Comment: Interpretive Data Testing performed by [facility] using the Jannie dawson [id number] Leidy auris assay. This assay detects DNA from Leidy auris using Real-Time PCR. This assay is laboratory developed and is not cleared by the [facility] Food and Drug Administration. The performance characteristics have been verified by the [facility]. Axilla/Groin 12/04/2024 5:39 PM PROJECT MANAGEMENT ENGINEER 12/04/2024 6:33 PM PROJECT MANAGEMENT ENGINEER Result [facility] Paco Hunter MD LAB MICROBIOLOGY - GENERAL ORDER CHERI Final Result Performing Organization Address [facility] Co de Phone Number [facility] [employer] [place] [address] [facility] * POCT glucose (12/04/2024 3:47 PM PROJECT MANAGEMENT ENGINEER) Glucose, POC 182 70 - 199 mg/dL Blood 12/04/2024 3:47 PM PROJECT MANAGEMENT ENGINEER 12/04/2024 3:47 PM PROJECT MANAGEMENT ENGINEER jV Oreilly MD LAB POCT ORDERABLES - DEV ICE Final Result [facility] Department [place] [address] * Oxyhemoglobin, central venous (12/04/2024 2:15 PM PROJECT MANAGEMENT ENGINEER) [facility] Oxyhemoglobin, CV 90.6 % Comment: Interpretive Data No reference range established. Current interpretive data was last revised 2020. Blood 12/04/2024 2:15 PM PROJECT MANAGEMENT ENGINEER 12/04/2024 2:22 PM PROJECT MANAGEMENT ENGINEER Edda Segal NP LAB BLOOD ORDERABLE S Final Result Performing Organization Address [facility] Co de Phone Number [facility] Department [place] [address] * (ABNORMAL) eGFR (12/04/2024 2:15 PM PROJECT MANAGEMENT ENGINEER) Pathologist [facility] eGFR 17(L) >=60 mL/min/1. 73 m2 Comment: [...] Inclusion of Race in Diagnosing Kidney Disease, CARRILLOSN 2020). The CKD-EPI equation should not be used for patients with unstable renal function and has not been validated in children and those over 70. Current interpretive data was last reviewed 2021. Blood 12/04/2024 2:15 PM PROJECT MANAGEMENT ENGINEER 12/04/2024 2:34 PM PROJECT MANAGEMENT ENGINEER Vj Oreilly MD LAB BLOOD ORDERABLES Sarah l Result Performing Organization Address [facility] de Phone Number [facility] [employer] [place] [address] * (ABNORMAL) aPTT (12/04/2024 2:15 PM PROJECT MANAGEMENT ENGINEER) aPTT 44(H) 28 - 38 sec Comment: Interpretive Data Heparin therapeutic range: 66.0 - 100.0 seconds. Range based on correlation with therapeutic heparin activity range of 0.3 - 0.7 Units/mL. Current interpretive data was last revised on 2023. Blood 12/04/2024 2:15 PM PROJECT MANAGEMENT ENGINEER 12/04/2024 2:24 PM PROJECT MANAGEMENT ENGINEER Vj Oreilly MD LAB BLOOD ORDERABLES Sarah l Result Performing Organization Address [facility] de Phone Number [facility] [employer] [place] [address] * (ABNORMAL) Protime-INR (12/04/2024 2:15 PM PROJECT MANAGEMENT ENGINEER) PT 15.1(H) 9.7 - 13.0 sec INR 1.39(H) 0.90 - 1.20 [facility] Comment: Interpretive data Oral anticoagulant therapeutic ranges: Venous thromboembolism prophylaxis or treatment: 2.0-3.0 CARDIOLOGY Standard range: 2.0-3.0 High-intensity range: 2.5-3.5 Refer to indication-specific guidelines for appropriate target ranges for prosthetic heart valve replacement. Current interpretive data was last revised on 2019. Blood 12/04/2024 2:15 PM PROJECT MANAGEMENT ENGINEER 12/04/2024 2:24 PM PROJECT MANAGEMENT ENGINEER Vj Oreilly MD LAB BLOOD ORDERABLES Sarah ley Result Performing Organization Address [facility] Co de Phone Number [facility] Department [place] [address] * (ABNORMAL) CBC without differential (12/04/2024 2:15 PM PROJECT MANAGEMENT ENGINEER) Pathologist [facility] WBC 9.3 3.8 - 9.9 K/cumm Hgb 10.5(L) 11.9 - 15.5 g/dL [facility] Hct 32.0(L) 35.6 - 45.5 % [facility] Plt 122(L) 150 - 400 K/cumm [facility] MPV 10.5 9.1 - 12.3 fL [facility] RBC 3.48(L) 3.90 - 5.20 M/cumm [facility] MCV 92.0 81.3 - 96.4 fL [facility] MCH 30.2 27.1 - 33.3 pg [facility] MCHC 32.8 32.3 - 35.7 g/dL [facility] RDW CV 16.3(H) 11.1 - 14.9 % [facility] RDW SD 54.7(H) 35.7 - 48.1 fL [facility] NRBC abs 0.00 0.00 - 0.01 K/cumm [facility] Blood 12/04/2024 2:15 PM PROJECT MANAGEMENT ENGINEER 12/04/2024 2:34 PM PROJECT MANAGEMENT ENGINEER Vj Oreilly MD LAB BLOOD ORDERABLES Sarah l Result Performing Organization Address [facility]/ZIP Co de Phone Number [facility] Department [place] [address] * Type and screen (12/04/2024 2:15 PM PROJECT MANAGEMENT ENGINEER) Pathologist [facility] ABO Rh B Positive Ardha, indirect Negative [facility] Blood 12/04/2024 2:15 PM PROJECT MANAGEMENT ENGINEER 12/04/2024 2:28 PM PROJECT MANAGEMENT ENGINEER Narrative [facility] - 12/04/2024 3:27 PM PROJECT MANAGEMENT ENGINEER Has the patient had Daratumumab or Isatuximab in the past 6 months?->Unknown Result [facility] Vj Oreilly MD LAB BLOOD BANK TEST ORDER CHERI Final Result Performing Organization Address [facility] de Phone Number [facility] [employer] [place] [address] * Triglycerides (12/04/2024 2:15 PM PROJECT MANAGEMENT ENGINEER) Triglycerides 76 <=149 mg/dL Comment: Interpretive Data [...] revised on 2018. Blood 12/04/2024 2:15 PM PROJECT MANAGEMENT ENGINEER 12/04/2024 2:22 PM PROJECT MANAGEMENT ENGINEER Vj Oreilly MD LAB BLOOD ORDERABLES Sarah l Result Performing Organization Address [facility] Co de Phone Number [facility] [employer] [place] [address] * (ABNORMAL) Magnesium (12/04/2024 2:15 PM PROJECT MANAGEMENT ENGINEER) Magnesium 2.6(H) 1.4 - 2.5 mg/dL Blood 12/04/2024 2:15 PM PROJECT MANAGEMENT ENGINEER 12/04/2024 2:22 PM PROJECT MANAGEMENT ENGINEER Vj Oreilly MD LAB BLOOD ORDERABLES Sarah ley Result Performing Organization Address City/[facility]/ZIP Co de Phone Number [facility] Department [place] [address] * (ABNORMAL) Basic metabolic panel (12/04/2024 2:15 PM PROJECT MANAGEMENT ENGINEER) Sodium 134(L) 135 - 145 mmol/L Potassium, pl 5.1(H) 3.3 - 4.9 mmol/L [facility] Comment:Hemolyzed; Potassium value may be falsely elevated by as much as 0.3-0.5 mmol/L. Suggest redraw and reanalysis. Chloride 104 97 - 110 mmol/L [facility] CO2 26 22 - 32 mmol/L [facility] Anion gap 4 2 - 15 mmol/L [facility] BUN 9 6 - 25 mg/dL [facility] Creatinine 3.19(H) 0.60 - 1.10 mg/dL [facility] Glucose 150 70 - 199 mg/dL [facility] Comment: Interpretive Data Fasting glucose >/= 126 [...] 2022. Calcium 8.9 8.5 - 10.3 mg/dL [facility] Blood 12/04/2024 2:15 PM PROJECT MANAGEMENT ENGINEER 12/04/2024 2:22 PM PROJECT MANAGEMENT ENGINEER us Vj Oreilly MD LAB BLOOD ORDERABLES Sarah l Result Performing Organization Address City/[facility]/ZIP Co de Phone Number [facility] Department [place] [address] * (ABNORMAL) POC Blood Gas and Chemistries, Arterial - (12/04/2024 2:10 PM PROJECT MANAGEMENT ENGINEER) pH, Art POC 7.41 7.35 - 7.45 pCO2, Art POC 40 35 - 45 mmHg [facility] pO2, Art POC 135(H) 83 - 108 mmHg [facility] Na, POC 134(L) 135 - 145 mmol/L [facility] K POC 5.2(H) 3.3 - 4.9 mmol/L [facility] Comment: Interpretive Data Not all point of care methods assess for hemolysis. Confirm with instrument and retest K+ if not consistent with clinical signs and symptoms. Current Interpretive Data was last revised on 2024. Cl, POC 107 97 - 110 mmol/L [facility] Ionized Ca, POC 5.34(H) 4.50 - 5.10 mg/dL [facility] Glucose, POC 149 70 - 199 mg/dL [facility] Lactate, POC 1.4 0.7 - 2.0 mmol/L [facility] SO2 (yousuf) arterial 99(H) 90 - 95 % [facility] Base excess, POC 0.7 mmol/L [facility] HCO3, Art POC 25 20 - 30 mmol/L [facility] Hct, POC 33.0(L) 36.3 - 45.3 % [facility] Total Hb, POC 11.0(L) 11.9 - 15.5 g/dL [facility] Blood 12/04/2024 2:10 PM PROJECT MANAGEMENT ENGINEER 12/04/2024 2:10 PM PROJECT MANAGEMENT ENGINEER us Vj Oreilly MD LAB POCT ORDERABLES - DEV ICE Final Result [facility] Department [place] [address] * Critical Care (12/04/2024 2:09 PM PROJECT MANAGEMENT ENGINEER) Narrative Sloan Rivas MD - 12/04/2024 2:09 PM PROJECT MANAGEMENT ENGINEER Sloan Rivas MD 01/10/2025 11:05 PM Critical Care Performed by: Edda Segal NP Authorized by: Edda Segal NP CRITICAL CARE: Team: [facility] Shift: AM Level of Billing: Critical Care [...] plan with the ICU team and other medical/x ray consultant staff, making frequent assessments and decisions [...] in the medical record us Edda Segal NP IN CLINIC/BEDSIDE O RDERABLES Edited Result - Final * XR Chest 1 View (12/04/2024 2:05 PM PROJECT MANAGEMENT ENGINEER) Anatomical Region Laterality Modality Body, Chest N/A Computed Radiogr aphy 12/04/2024 3:23 PM PROJECT MANAGEMENT ENGINEER Impressions 12/04/2024 3:50 PM PROJECT MANAGEMENT ENGINEER Comparison is made to radiograph dated 11/25/2024 [...] Mulu Mendoza M.D. Narrative 12/04/2024 3:50 PM PROJECT MANAGEMENT ENGINEER EXAMINATION: 1 view chest radiograph Procedure Note [...] hematocrit and platelet count (12/04/2024 11:53 AM PROJECT MANAGEMENT ENGINEER) Hgb, POC 8.4(L) 11.9 - 15.5 g/dL Hematocrit POC 26.0(L) 35.6 - 45.5 % [facility] Platelet POC 84(L) 150 - 400 K/cumm [facility] Blood 12/04/2024 11:5 3 AM PROJECT MANAGEMENT ENGINEER 12/04/2024 11:53 AM PROJECT MANAGEMENT ENGINEER Vj Oreilly MD LAB POCT ORDERABLES - DEV ICE Final Result [facility] Department [place] [address] * (ABNORMAL) POCT prothrombin time (12/04/2024 11:52 AM PROJECT MANAGEMENT ENGINEER) PT, POC 23.8(H) 11.7 - 16.6 sec INR, POC 1.8(H) 0.9 - 1.2 [facility] Blood 12/04/2024 11:5 2 AM PROJECT MANAGEMENT ENGINEER 12/04/2024 11:52 AM PROJECT MANAGEMENT ENGINEER Vj Oreilly MD LAB POCT ORDERABLES - DEV ICE Final Result Performing Organization Address City/[facility] Co de Phone Number [facility] [employer] [place] [address] * POCT Partial thromboplastin time (PTT) (12/04/2024 11:52 AM PROJECT MANAGEMENT ENGINEER) Pathologist [facility] APTT, POC 43.6 32.5 - 46.1 sec Blood 12/04/2024 11:5 2 AM PROJECT MANAGEMENT ENGINEER 12/04/2024 11:52 AM PROJECT MANAGEMENT ENGINEER Vj Oreilly MD LAB POCT ORDERABLES - DEV ICE Final Result Performing Organization Address City/[facility] Co de Phone Number [facility] Department [place] [address] * POCT heparin/ACT CPB (12/04/2024 11:51 AM PROJECT MANAGEMENT ENGINEER) Pathologist [facility] ACT, CPB 154 112 - 174 sec Blood 12/04/2024 11:5 1 AM PROJECT MANAGEMENT ENGINEER 12/04/2024 11:51 AM PROJECT MANAGEMENT ENGINEER Vj Oreilly MD LAB POCT ORDERABLES - DEV ICE Final Result Performing Organization Address City/[facility] Co de Phone Number [facility] Department [place] [address] * (ABNORMAL) POC Blood Gas and Chemistries, Arterial - (12/04/2024 11:48 AM PROJECT MANAGEMENT ENGINEER) pH, Art POC 7.47(H) 7.35 - 7.45 pCO2, Art POC 36 35 - 45 mmHg [facility] pO2, Art POC 423(H) 83 - 108 [facility] Na, POC 136 135 - 145 mmol/L [facility] K POC 4.7 3.3 - 4.9 mmol/L [facility] Comment: Interpretive Data Not all point of care methods assess for hemolysis. Confirm with instrument and retest K+ if not consistent with clinical signs and symptoms. Current Interpretive Data was last revised on 2024. Cl, POC 106 97 - 110 mmol/L [facility] Ionized Ca, POC 6.10(H) 4.50 - 5.10 mg/dL [facility] Glucose, POC 158 70 - 199 mg/dL [facility] Lactate, POC 2.4(H) 0.7 - 2.0 mmol/L [facility] SO2 (yousuf) arterial 100(H) 90 - 95 % [facility] Base excess, POC 2.5 mmol/L [facility] HCO3, Art POC 26 20 - 30 mmol/L [facility] Hct, POC 27.0(L) 36.3 - 45.3 % [facility] Total Hb, POC 9.0(L) 11.9 - 15.5 g/dL [facility] Blood 12/04/2024 11:4 8 AM PROJECT MANAGEMENT ENGINEER 12/04/2024 11:48 AM PROJECT MANAGEMENT ENGINEER us Vj Oreilly MD LAB POCT ORDERABLES - DEV ICE Final Result [facility] [place] [address] * (ABNORMAL) POCT heparin/ACT CPB (12/04/2024 11:29 AM PROJECT MANAGEMENT ENGINEER) Heparin POC <2.8 units/mL ACT, CPB 738(H) 112 - 174 sec [facility] Blood 12/04/2024 11:2 9 AM PROJECT MANAGEMENT ENGINEER 12/04/2024 11:29 AM PROJECT MANAGEMENT ENGINEER us Vj Oreilly MD LAB POCT ORDERABLES - DEV ICE Final Result [facility] [place] [address] * (ABNORMAL) POC Blood Gas and Chemistries, Arterial - (12/04/2024 11:26 AM PROJECT MANAGEMENT ENGINEER) pH, Art POC 7.45 7.35 - 7.45 pCO2, Art POC 39 35 - 45 mmHg [facility] pO2, Art POC 317(H) 83 - 108 mmHg [facility] Na, POC 138 135 - 145 mmol/L [facility] K POC 4.8 3.3 - 4.9 mmol/L [facility] Comment: Interpretive Data Not all point of care methods assess for hemolysis. Confirm with instrument and retest K+ if not consistent with clinical signs and symptoms. Current Interpretive Data was last revised on 2024. Cl, POC 106 97 - 110 mmol/L [facility] Ionized Ca, POC 4.36(L) 4.50 - 5.10 mg/dL [facility] Glucose, POC 170 70 - 199 mg/dL [facility] Lactate, POC 1.9 0.7 - 2.0 mmol/L [facility] SO2 (yousuf) arterial 100(H) 90 - 95 % [facility] Base excess, POC 2.9 mmol/L [facility] HCO3, Art POC 27 20 - 30 mmol/L [facility] Hct, POC 26.0(L) 36.3 - 45.3 % [facility] Total Hb, POC 8.5(L) 11.9 - 15.5 g/dL [facility] Blood 12/04/2024 11:2 6 AM PROJECT MANAGEMENT ENGINEER 12/04/2024 11:26 AM PROJECT MANAGEMENT ENGINEER us Vj Oreilly MD LAB POCT ORDERABLES - DEV ICE Final Result [facility] Department [place] [address] * (ABNORMAL) POCT heparin/ACT CPB (12/04/2024 10:59 AM PROJECT MANAGEMENT ENGINEER) Heparin POC <2.8 units/mL ACT, CPB 888(H) 112 - 174 sec [facility] Blood 12/04/2024 10:5 9 AM PROJECT MANAGEMENT ENGINEER 12/04/2024 10:59 AM PROJECT MANAGEMENT ENGINEER us Vj Oreilly MD LAB POCT ORDERABLES - DEV ICE Final Result [facility] [place] [address] * (ABNORMAL) POC Blood Gas and Chemistries, Arterial - (12/04/2024 10:55 AM PROJECT MANAGEMENT ENGINEER) pH, Art POC 7.38 7.35 - 7.45 pCO2, Art POC 46(H) 35 - 45 mmHg [facility] pO2, Art POC 295(H) 83 - 108 mmHg [facility] Na, POC 132(L) 135 - 145 mmol/L [facility] K POC 5.8(H) 3.3 - 4.9 mmol/L [facility] Comment: Interpretive Data Not all point of care methods assess for hemolysis. Confirm with instrument and retest K+ if not consistent with clinical signs and symptoms. Current Interpretive Data was last revised on 2024. Cl, POC 103 97 - 110 mmol/L [facility] Ionized Ca, POC 4.73 4.50 - 5.10 mg/dL [facility] Glucose, POC 186 70 - 199 mg/dL [facility] Lactate, POC 2.3(H) 0.7 - 2.0 mmol/L [facility] SO2 (yousuf) arterial 100(H) 90 - 95 % [facility] Base excess, POC 1.7 mmol/L [facility] HCO3, Art POC 27 20 - 30 mmol/L [facility] Hct, POC 28.0(L) 36.3 - 45.3 % [facility] Total Hb, POC 9.2(L) 11.9 - 15.5 g/dL [facility] Blood 12/04/2024 10:5 5 AM PROJECT MANAGEMENT ENGINEER 12/04/2024 10:55 AM PROJECT MANAGEMENT ENGINEER Vj Oreilly MD LAB POCT ORDERABLES - DEV ICE Final Result Performing Organization Address [facility] de Phone Number [facility] [place] [address] * (ABNORMAL) POCT heparin/ACT CPB (12/04/2024 10:24 AM PROJECT MANAGEMENT ENGINEER) Pathologist [facility] Heparin POC 3.4 units/mL ACT, CPB 903(H) 112 - 174 sec [facility] Blood 12/04/2024 10:2 4 AM PROJECT MANAGEMENT ENGINEER 12/04/2024 10:24 AM PROJECT MANAGEMENT ENGINEER Vj Oreilly MD LAB POCT ORDERABLES - DEV ICE Final Result Performing Organization Address [facility] de Phone Number [facility] [employer] [place] [address] * (ABNORMAL) POC Blood Gas and Chemistries, Arterial - (12/04/2024 10:20 AM PROJECT MANAGEMENT ENGINEER) pH, Art POC 7.47(H) 7.35 - 7.45 pCO2, Art POC 33(L) 35 - 45 mmHg [facility] pO2, Art POC 403(H) 83 - 108 mmHg [facility] Na, POC 132(L) 135 - 145 mmol/L [facility] K POC 4.3 3.3 - 4.9 mmol/L [facility] Comment: Interpretive Data Not all point of care methods assess for hemolysis. Confirm with instrument and retest K+ if not consistent with clinical signs and symptoms. Current Interpretive Data was last revised on 2024. Cl, POC 102 97 - 110 mmol/L [facility] Ionized Ca, POC 4.48(L) 4.50 - 5.10 mg/dL [facility] Glucose, POC 171 70 - 199 mg/dL [facility] Lactate, POC 3.9(H) 0.7 - 2.0 mmol/L [facility] SO2 (yousuf) arterial 100(H) 90 - 95 % [facility] Base excess, POC 0.6 mmol/L [facility] HCO3, Art POC 24 20 - 30 mmol/L [facility] Hct, POC 29.0(L) 36.3 - 45.3 % [facility] Total Hb, POC 9.5(L) 11.9 - 15.5 g/dL [facility] Blood 12/04/2024 10:2 0 AM PROJECT MANAGEMENT ENGINEER 12/04/2024 10:20 AM PROJECT MANAGEMENT ENGINEER Vj Oreilly MD LAB POCT ORDERABLES - DEV ICE Final Result Performing Organization Address City/[facility]/ZIP Co de Phone Number [facility] [employer] [place] [address] * (ABNORMAL) POCT heparin/ACT CPB (12/04/2024 9:49 AM PROJECT MANAGEMENT ENGINEER) [facility] Heparin POC 4.1 units/mL ACT, CPB 683(H) 112 - 174 sec [facility] Blood 12/04/2024 9:49 AM PROJECT MANAGEMENT ENGINEER 12/04/2024 9:49 AM PROJECT MANAGEMENT ENGINEER Vj Oreilly MD LAB POCT ORDERABLES - DEV ICE Final Result Performing Organization Address City/[facility]/ZIP Co de Phone Number [facility] [employer] [place] [address] * Transfuse RBC (12/04/2024 9:41 AM PROJECT MANAGEMENT ENGINEER) Blood Fernando Chow MD PhD BLOOD TRANSFUSION ORDERABLES Final Result [facility] [place] [address] * Transfuse RBC (12/04/2024 9:41 AM PROJECT MANAGEMENT ENGINEER) Blood Fernando Chow MD PhD BLOOD TRANSFUSION ORDERABLES Final Result MICHELET [facility] Department [place] [address] * Surgical pathology (12/04/2024 9:37 AM PROJECT MANAGEMENT ENGINEER) Tissue specimen (specimen) (Heart Valve) 12/04/2024 9:37 AM PROJECT MANAGEMENT ENGINEER Narrative PATHOLOGY [facility] - 12/06/2024 10:34 AM PROJECT MANAGEMENT ENGINEER EPIC results best viewed via link to PDF [facility] [place] [address] Note to Patients: This report may contain [...] Gender: F : 1970 (Age: 54) Address: [address] [place], [place] [id number] Hospital #: [id number] Taken:12/04/2024 Received:12/04/2024 Reported: 12/06/2024 Patient [facility]: [facility] Inpatient Service: UNKNOWN Location: [place] [id number] Physician(s): Radha Matthews Jr., M.D. Diagnosis: A. [...] Surgical Pathology and Flow Cytometry Departments at [facility] as part of an ongoing quality assurance monitor final program and in compliance with federally mandated [...] Surgical Pathology and Flow Cytometry Departments of [facility]. It has not been cleared or approved by the U. S. Food and Drug Administration. IMAGES AND SCANNED DOCUMENTS, IF INCLUDED, ONLY VIEWABLE IN PDF VERSION OF REPORT Vj Oreilly MD LAB PATHOLOGY ORDERABLES Final Result PATHOLOGY [facility] 3rd Floor [place], [place] [phone] * [place] AN PROCEDURE PLACEHOLDER (12/04/2024 9:34 AM PROJECT MANAGEMENT ENGINEER) Anatomical Region Laterality Modality Other Narrative 12/04/2024 9:34 AM PROJECT MANAGEMENT ENGINEER Fernando Chow MD PhD 12/04/2024 12:55 PM [...] code: KALEN placement and diagnostic exam, non-congenital (31583) ICD code(s) for medical necessity: I33.0 - [...] inferior: normal 16- Apical septal: normal 17- [place]: normal Valves: Aortic Valve: Annulus: normal Leaflet [...] * Central Venous Line (12/04/2024 9:18 AM PROJECT MANAGEMENT ENGINEER) Narrative Spencer Irvin MD - 12/04/2024 9:18 AM PROJECT MANAGEMENT ENGINEER Spencer Irvin MD 12/04/2024 9:21 AM Central [...] * Central Venous Line (12/04/2024 9:17 AM PROJECT MANAGEMENT ENGINEER) Narrative Spencer Irvin MD - 12/04/2024 9:17 AM PROJECT MANAGEMENT ENGINEER Spencer Irvin MD 12/04/2024 9:18 AM Central [...] Final * Arterial Line (12/04/2024 9:17 AM PROJECT MANAGEMENT ENGINEER) Narrative Spencer Irvin MD - 12/04/2024 9:17 AM PROJECT MANAGEMENT ENGINEER Spencer Irvin MD 12/04/2024 9:17 AM Arterial [...] complications Additional comments: Ultrasound guidance used Fernando Chow MD PhD ANESTHESIA ORDERAB LES Final Result * Airway (12/04/2024 9:16 AM PROJECT MANAGEMENT ENGINEER) Narrative Spencer Irvin MD - 12/04/2024 9:16 AM PROJECT MANAGEMENT ENGINEER Spencer Irvin MD 12/04/2024 9:17 AM Airway [...] heparin dose response, CPB (12/04/2024 9:13 AM PROJECT MANAGEMENT ENGINEER) Baseline ACT POC 143 112 - 174 sec Heparin dose response slope POC 114 60 - 195 [facility] Projected Heparin Concentration POC 3.0 units/mL [facility] Blood 12/04/2024 9:13 AM PROJECT MANAGEMENT ENGINEER 12/04/2024 9:13 AM PROJECT MANAGEMENT ENGINEER Vj Oreilly MD LAB POCT ORDERABLES - DEV ICE Final Result [facility] Department [place] [address] * (ABNORMAL) POC Blood Gas and Chemistries, Arterial - (12/04/2024 9:08 AM PROJECT MANAGEMENT ENGINEER) pH, Art POC 7.54(H) 7.35 - 7.45 pCO2, Art POC 34(L) 35 - 45 mmHg [facility] pO2, Art POC 249(H) 83 - 108 mmHg [facility] Na, POC 134(L) 135 - 145 mmol/L [facility] K POC 3.3 3.3 - 4.9 mmol/L [facility] Comment: Interpretive Data Not all point of care methods assess for hemolysis. Confirm with instrument and retest K+ if not consistent with clinical signs and symptoms. Current Interpretive Data was last revised on 2024. Cl, POC 101 97 - 110 mmol/L [facility] Ionized Ca, POC 4.61 4.50 - 5.10 mg/dL [facility] Glucose, POC 135 70 - 199 mg/dL [facility] Lactate, POC 1.6 0.7 - 2.0 mmol/L [facility] SO2 (yousuf) arterial 100(H) 90 - 95 % [facility] Base excess, POC 6.3 mmol/L [facility] HCO3, Art POC 29 20 - 30 mmol/L [facility] Hct, POC 26.0(L) 36.3 - 45.3 % [facility] Total Hb, POC 8.8(L) 11.9 - 15.5 g/dL [facility] Blood 12/04/2024 9:08 AM PROJECT MANAGEMENT ENGINEER 12/04/2024 9:08 AM PROJECT MANAGEMENT ENGINEER us Vj Oreilly MD LAB POCT ORDERABLES - DEV ICE Final Result [facility] [place] [address] * KALEN Add-On For OR (12/04/2024 7:59 AM PROJECT MANAGEMENT ENGINEER) BSA 1.62 m2 [facility] PROSOLV_CARDIORE PORT_CONS SCIMAGE Narrative [facility] PROSOLV_CARDIOREPORT_CONS SCIMAGE - 12/04/2024 7:59 AM PROJECT MANAGEMENT ENGINEER Procedure Auto Finalized by Rule: BW CV KALEN DURING CASE OR Please see the Anesthesiologist's Procedure Note for the results. Fernando Chow MD PhD CV ECHO PROCEDURES Final Result Performing Organization Address [facility] Co de Phone Number [facility] PROSOLV_CARDIOREPORT_CONS SCIMAGE * (ABNORMAL) POC Blood Gas and Chemistries, Arterial - (12/04/2024 6:24 AM PROJECT MANAGEMENT ENGINEER) Na, POC 135 135 - 145 mmol/L K POC 3.9 3.3 - 4.9 mmol/L [facility] Comment: Interpretive Data Not all point of care methods assess for hemolysis. Confirm with instrument and retest K+ if not consistent with clinical signs and symptoms. Current Interpretive Data was last revised on 2024. Glucose, POC 99 70 - 199 mg/dL [facility] Hct, POC 32.0(L) 36.3 - 45.3 % [facility] Total Hb, POC 10.6(L) 11.9 - 15.5 g/dL [facility] Blood 12/04/2024 6:24 AM PROJECT MANAGEMENT ENGINEER 12/04/2024 6:24 AM PROJECT MANAGEMENT ENGINEER Vj Oreilly MD LAB POCT ORDERABLES - DEV ICE Final Result Performing Organization Address [facility] Co de Phone Number [facility] Department [place] [address] * Prepare RBC: 4 Units (12/04/2024 5:52 AM PROJECT MANAGEMENT ENGINEER) Product code [id number] [facility] Unit Number [id number] [facility] Product Blood Type BNEG [facility] Dispense Status RETURNED [facility] Product code [id number] [facility] Unit Number [id number] [facility] Product Blood Type BNEG [facility] Dispense Status RETURNED [facility] Product code [id number] Unit Number [id number] [facility] Product Blood Type BNEG [facility] Dispense Status PRESUMED TRANSFUSED [facility] Product code [id number] [facility] Unit Number [id number] [facility] Product Blood Type BNEG [facility] Dispense Status PRESUMED TRANSFUSED [facility] Blood 12/04/2024 5:52 AM PROJECT MANAGEMENT ENGINEER 12/04/2024 5:51 AM PROJECT MANAGEMENT ENGINEER Narrative [facility] - 12/04/2024 9:00 PM PROJECT MANAGEMENT ENGINEER Specify Procedure:->MVR Are special requirements needed? (All products are leukoreduced and CMV- safe)- >No Date required:-[id number] LRRBC # of [id number] Reasons:-Hold for procedure (specify procedure)} us Carmtia Castellanos NP BLOOD BANK PRODUCT ORDERAB LES Final Result [facility] JARAMILL[facility] Department [place] [address] * (ABNORMAL) eGFR (12/03/2024 10:17 PM PROJECT MANAGEMENT ENGINEER) eGFR 23(L) >=60 mL/min/1. 73 m2 Comment: [...] reviewed 2021. Blood 12/03/2024 10:1 7 PM PROJECT MANAGEMENT ENGINEER 12/03/2024 11:26 PM PROJECT MANAGEMENT ENGINEER Tito García NEWS CAMERA OPERATOR LAB BLOOD ORDERABLES Final Result Performing Organization Address [facility]/ZIP Co de Phone Number [facility] Department [place] [address] * (ABNORMAL) CBC without differential (12/03/2024 10:17 PM PROJECT MANAGEMENT ENGINEER) WBC 5.1 3.8 - 9.9 K/cumm Hgb 10.0(L) 11.9 - 15.5 g/dL [facility] Hct 32.1(L) 35.6 - 45.5 % [facility] Plt 169 150 - 400 K/cumm [facility] MPV 10.0 9.1 - 12.3 fL [facility] RBC 3.48(L) 3.90 - 5.20 M/cumm [facility] MCV 92.2 81.3 - 96.4 fL [facility] MCH 28.7 27.1 - 33.3 pg [facility] MCHC 31.2(L) 32.3 - 35.7 g/dL [facility] RDW CV 16.8(H) 11.1 - 14.9 % [facility] RDW SD 56.7(H) 35.7 - 48.1 fL [facility] NRBC abs 0.00 0.00 - 0.01 K/cumm [facility] Blood 12/03/2024 10:1 7 PM PROJECT MANAGEMENT ENGINEER 12/03/2024 11:28 PM PROJECT MANAGEMENT ENGINEER Tito García NEWS CAMERA OPERATOR LAB BLOOD ORDERABLES Final Result [facility] Department [place] [address] * (ABNORMAL) Phosphorus (12/03/2024 10:17 PM PROJECT MANAGEMENT ENGINEER) Phosphorus, pl 1.4(L) 2.3 - 4.5 mg/dL Blood 12/03/2024 10:1 7 PM PROJECT MANAGEMENT ENGINEER 12/03/2024 11:26 PM PROJECT MANAGEMENT ENGINEER Tito Youngoz NEWS CAMERA OPERATOR LAB BLOOD ORDERABLES Final Result [facility] [place] [address] * Magnesium (12/03/2024 10:17 PM PROJECT MANAGEMENT ENGINEER) [facility] Magnesium 2.1 1.4 - 2.5 mg/dL Blood 12/03/2024 10:1 7 PM PROJECT MANAGEMENT ENGINEER 12/03/2024 11:26 PM PROJECT MANAGEMENT ENGINEER Tito Mccarthy García NEWS CAMERA OPERATOR LAB BLOOD ORDERABLES Final Result Performing Organization Address [facility] Co de Phone Number [facility] [place] [address] * (ABNORMAL) Basic metabolic panel (12/03/2024 10:17 PM PROJECT MANAGEMENT ENGINEER) [facility] Sodium 133(L) 135 - 145 mmol/L Potassium, pl 3.8 3.3 - 4.9 mmol/L [facility] Chloride 96(L) 97 - 110 mmol/L [facility] CO2 30 22 - 32 mmol/L [facility] Anion gap 7 2 - 15 mmol/L [facility] BUN 7 6 - 25 mg/dL [facility] Creatinine 2.45(H) 0.60 - 1.10 mg/dL [facility] Glucose 117 70 - 199 mg/dL [facility] Comment: Interpretive Data Fasting glucose >/= 126 [...] 2022. Calcium 8.4(L) 8.5 - 10.3 mg/dL [facility] Blood 12/03/2024 10:1 7 PM PROJECT MANAGEMENT ENGINEER 12/03/2024 11:26 PM PROJECT MANAGEMENT ENGINEER Tito García NEWS CAMERA OPERATOR LAB BLOOD ORDERABLES Final Result [facility] Department [place] [address] * (ABNORMAL) Urinalysis reflex to microscopic and culture Urine, clean voided (12/03/2024 9:17 PM PROJECT MANAGEMENT ENGINEER) Color, ur Straw Yellow Clarity, ur Clear Clear [facility] Specific gravity, ur 1.008 1.003 - 1.030 [facility] pH, urine 8.5 [facility] Comment: Interpretive Data U rine pH is affected by diet, medications, systemic acid-base disturbances, and renal tubular function. pH may affect urinary stone formation. For example, urine pH below 6.0 may help reduce the tendency for calcium phosphate stones and pH greater than 6.0 may reduce the tendency for uric acid stone formation. Source: [facility] Current Interpretive Data was last revised on 2017 Protein, ur ql 1+(A) Negative [facility] Glucose, ur ql Negative Negative [facility] Ketones, ur Negative Negative [facility] Bilirubin, ur Negative Negative [facility] Blood, ur Negative Negative [facility] Urobilinogen, ur <2.0 <2.0 mg/dL [facility] Nitrite, ur Negative Negative [facility] Leukocyte esterase, ur Negative Negative [facility] UA reflex comment Reflex to microscopic UA will be performed. [facility] Urine, clean voided 12/03/2024 9:17 PM PROJECT MANAGEMENT ENGINEER 12/03/2024 10:27 PM PROJECT MANAGEMENT ENGINEER Narrative [facility] - 12/03/2024 10:35 PM PROJECT MANAGEMENT ENGINEER Please send eva, she is preop for OR tomorow Sia Orr NP LAB MICROBIOLOGY - GENERAL ORDER CHERI Final Result Performing Organization Address City/[facility] Co de Phone Number [facility] [place] [address] * (ABNORMAL) Urinalysis, microscopic only (12/03/2024 9:17 PM PROJECT MANAGEMENT ENGINEER) WBC, ur 0-5 0 - 5 /HPF RBC, ur 0-2 0 - 2 /HPF [facility] Epithelial cells, squamous, ur 1-5 0 - 5 /HPF [facility] Mucous, ur Present(A) [facility] Culture Reflex Comment Reflex conditions for urine culture (WBC >10) not met. [facility] Urine, clean voided 12/03/2024 9:17 PM PROJECT MANAGEMENT ENGINEER 12/03/2024 10:27 PM PROJECT MANAGEMENT ENGINEER Sia Orr NP LAB URINE ORDERABLES Final Resul t Performing Organization Address [facility] Co de Phone Number [facility] Department [place] [address] * (ABNORMAL) eGFR (12/02/2024 9:40 PM PROJECT MANAGEMENT ENGINEER) eGFR 18(L) >=60 mL/min/1. 73 m2 Comment: [...] last reviewed 2021. Blood 12/02/2024 9:40 PM PROJECT MANAGEMENT ENGINEER 12/02/2024 10:47 PM PROJECT MANAGEMENT ENGINEER Tito García NP LAB BLOOD ORDERABLES Final Result [facility] [employer] [place] [address] * (ABNORMAL) CBC without differential (12/02/2024 9:40 PM PROJECT MANAGEMENT ENGINEER) WBC 5.7 3.8 - 9.9 K/cumm Hgb 9.9(L) 11.9 - 15.5 g/dL [facility] Hct 31.3(L) 35.6 - 45.5 % [facility] Plt 191 150 - 400 K/cumm [facility] MPV 10.3 9.1 - 12.3 fL [facility] RBC 3.44(L) 3.90 - 5.20 M/cumm [facility] MCV 91.0 81.3 - 96.4 fL [facility] MCH 28.8 27.1 - 33.3 pg [facility] MCHC 31.6(L) 32.3 - 35.7 g/dL [facility] RDW CV 17.0(H) 11.1 - 14.9 % [facility] RDW SD 56.8(H) 35.7 - 48.1 fL [facility] NRBC abs 0.00 0.00 - 0.01 K/cumm [facility] Blood 12/02/2024 9:40 PM PROJECT MANAGEMENT ENGINEER 12/02/2024 10:51 PM PROJECT MANAGEMENT ENGINEER Tito García NP LAB BLOOD ORDERABLES Final Result [facility] [place] [address] * Type and screen (12/02/2024 9:40 PM PROJECT MANAGEMENT ENGINEER) [facility] ABO Rh B Positive Radha, indirect Negative [facility] Blood 12/02/2024 9:40 PM PROJECT MANAGEMENT ENGINEER 12/02/2024 11:06 PM PROJECT MANAGEMENT ENGINEER Narrative [facility] - 12/03/2024 12:22 AM PROJECT MANAGEMENT ENGINEER Has the patient had Daratumumab or Isatuximab in the past 6 months?->Unknown Tito García NEWS CAMERA OPERATOR LAB BLOOD BANK TEST ORDERA BLES Final Result [facility] [place] [address] * (ABNORMAL) Phosphorus (12/02/2024 9:40 PM PROJECT MANAGEMENT ENGINEER) [facility] Phosphorus, pl 1.7(L) 2.3 - 4.5 mg/dL Blood 12/02/2024 9:40 PM PROJECT MANAGEMENT ENGINEER 12/02/2024 10:47 PM PROJECT MANAGEMENT ENGINEER Tito García NEWS CAMERA OPERATOR LAB BLOOD ORDERABLES Final Result Performing Organization Address City/[facility]/ZIP Co de Phone Number [facility] [place] [address] * Magnesium (12/02/2024 9:40 PM PROJECT MANAGEMENT ENGINEER) [facility] Magnesium 2.3 1.4 - 2.5 mg/dL Blood 12/02/2024 9:40 PM PROJECT MANAGEMENT ENGINEER 12/02/2024 10:47 PM PROJECT MANAGEMENT ENGINEER Tito García NEWS CAMERA OPERATOR LAB BLOOD ORDERABLES Final Result Performing Organization Address City/[facility]/[place] [address] * (ABNORMAL) Creatine kinase (CK), total (12/02/2024 9:40 PM PROJECT MANAGEMENT ENGINEER) [facility] CK 21(L) 30 - 200 Units/L Blood 12/02/2024 9:40 PM PROJECT MANAGEMENT ENGINEER 12/02/2024 10:47 PM PROJECT MANAGEMENT ENGINEER us Ana María Vaca NEWS CAMERA OPERATOR LAB BLOOD ORDERABLES Final Result Performing Organization Address City/[facility]/ZIP Co de Phone Number [facility] [place] [address] * (ABNORMAL) Basic metabolic panel (12/02/2024 9:40 PM PROJECT MANAGEMENT ENGINEER) Pathologist [facility] [facility] Sodium 134(L) 135 - 145 mmol/L Potassium, pl 4.4 3.3 - 4.9 mmol/L [facility] Chloride 97 97 - 110 mmol/L [facility] CO2 29 22 - 32 mmol/L [facility] Anion gap 8 2 - 15 mmol/L [facility] BUN 9 6 - 25 mg/dL [facility] Creatinine 2.96(H) 0.60 - 1.10 mg/dL [facility] Glucose 135 70 - 199 mg/dL [facility] Comment: Interpretive Data Fasting glucose >/= 126 [...] 2022. Calcium 8.5 8.5 - 10.3 mg/dL [facility] Blood 12/02/2024 9:40 PM PROJECT MANAGEMENT ENGINEER 12/02/2024 10:47 PM PROJECT MANAGEMENT ENGINEER us Tito García NEWS CAMERA OPERATOR LAB BLOOD ORDERABLES Final Result Performing Organization Address [facility]/ZIP Co de Phone Number [facility] Department [place] [address] * LEFT HEART CATHETERIZATION (LHC) (12/02/2024 1:58 PM PROJECT MANAGEMENT ENGINEER) Anatomical Region Laterality Modality X-Ray Angiograph y Impressions 12/02/2024 2:08 PM PROJECT MANAGEMENT ENGINEER No angiographically significant coronary artery disease Normal left ventricular end diastolic blood pressure. THERAPEUTIC RECOMMENDATIONS: No need for coronary revascularization at the time of valve surgery Narrative 12/02/2024 2:08 PM PROJECT MANAGEMENT ENGINEER Images from the original result were not included. Cardiovascular Procedure Center [facility] [address], [address] [place] [id number] DIAGNOSTIC CATHETERIZATION REPORT Patient: Quin Miller : 1970 MR number: [id number] Date of Service: 12/02/2024 Emergency Room Nurse: Jeramie José MD INDICATION: CHF/Dyspnea NYHA Class [...] obtained. The patient was brought to the optical lab technician and placed on the table. The RIGHT [...] left ventriculogram was done. I provided direct [id number] moderate conscious sedation which administered by independent [...] * Blood culture Blood (12/02/2024 8:36 AM PROJECT MANAGEMENT ENGINEER) Report Final Report: No growth Blood 12/02/2024 8:36 AM PROJECT MANAGEMENT ENGINEER 12/02/2024 9:34 AM PROJECT MANAGEMENT ENGINEER Narrative [facility] - 12/06/2024 12:00 PM PROJECT MANAGEMENT ENGINEER Collection->Peripheral 1. Blood cultures are incubated for [...] performance characteristics have been verified by the [facility]. For questions about this culture, contact the Microbiology Laboratory at [phone]. Interpretive data was last revised on 24. us Ana María Vaca NP LAB MICROBIOLOGY - GENERAL ORDERABLES Final Result [facility] Department [place] [address] * Infection Prevention Leidy auris PCR, surveillance Axilla/Groin (12/01/2024 10:28 PM PROJECT MANAGEMENT ENGINEER) Leidy auris DNA Not Detected Not Detected [facility] Comment: Interpretive Data Testing performed by [facility] using the Jannie dawson [id number] Leidy auris assay. This assay detects DNA from Leidy auris using Real-Time PCR. This assay is laboratory developed and is not cleared by the [facility] Food and Drug Administration. The performance characteristics have been verified by the [facility]. Axilla/Groin 12/01/2024 10:2 8 PM PROJECT MANAGEMENT ENGINEER 12/01/2024 10:47 PM PROJECT MANAGEMENT ENGINEER us Paco Hunter MD LAB MICROBIOLOGY - GENERAL ORDER CHERI Final Result [facility] Department [place] [address] [facility] * (ABNORMAL) eGFR (12/01/2024 10:28 PM PROJECT MANAGEMENT ENGINEER) eGFR 9(L) >=60 mL/min/1. 73 m2 Comment: [...] reviewed 2021. Blood 12/01/2024 10:2 8 PM PROJECT MANAGEMENT ENGINEER 12/01/2024 10:54 PM PROJECT MANAGEMENT ENGINEER Tito García NEWS CAMERA OPERATOR LAB BLOOD ORDERABLES Final Result [facility] MARYVALEMASTER [facility] Department [place] [address] * (ABNORMAL) CBC without differential (12/01/2024 10:28 PM PROJECT MANAGEMENT ENGINEER) WBC 5.4 3.8 - 9.9 K/cumm Hgb 9.0(L) 11.9 - 15.5 g/dL [facility] Hct 28.2(L) 35.6 - 45.5 % [facility] Plt 162 150 - 400 K/cumm [facility] MPV 10.0 9.1 - 12.3 fL [facility] RBC 3.14(L) 3.90 - 5.20 M/cumm [facility] MCV 89.8 81.3 - 96.4 fL [facility] MCH 28.7 27.1 - 33.3 pg [facility] MCHC 31.9(L) 32.3 - 35.7 g/dL [facility] RDW CV 16.8(H) 11.1 - 14.9 % [facility] RDW SD 54.9(H) 35.7 - 48.1 fL [facility] NRBC abs 0.00 0.00 - 0.01 K/cumm [facility] Blood 12/01/2024 10:2 8 PM PROJECT MANAGEMENT ENGINEER 12/01/2024 10:55 PM PROJECT MANAGEMENT ENGINEER us Tito García NEWS CAMERA OPERATOR LAB BLOOD ORDERABLES Final Result [facility] MARYVALEMASTER [facility] [place] [address] * (ABNORMAL) Phosphorus (12/01/2024 10:28 PM PROJECT MANAGEMENT ENGINEER) Phosphorus, pl 1.6(L) 2.3 - 4.5 mg/dL Blood 12/01/2024 10:2 8 PM PROJECT MANAGEMENT ENGINEER 12/01/2024 10:54 PM PROJECT MANAGEMENT ENGINEER Tito Mccarthy Ricky NEWS CAMERA OPERATOR LAB BLOOD ORDERABLES Final Result [facility] [place] [address] * Magnesium (12/01/2024 10:28 PM PROJECT MANAGEMENT ENGINEER) [facility] Magnesium 2.5 1.4 - 2.5 mg/dL Blood 12/01/2024 10:2 8 PM PROJECT MANAGEMENT ENGINEER 12/01/2024 10:54 PM PROJECT MANAGEMENT ENGINEER Tito Youngoz NEWS CAMERA OPERATOR LAB BLOOD ORDERABLES Final Result Performing Organization Address [facility] de Phone Number [facility] [place] [address] * (ABNORMAL) Basic metabolic panel (12/01/2024 10:28 PM PROJECT MANAGEMENT ENGINEER) [facility] Sodium 133(L) 135 - 145 mmol/L Potassium, pl 4.9 3.3 - 4.9 mmol/L [facility] Chloride 99 97 - 110 mmol/L [facility] CO2 29 22 - 32 mmol/L [facility] Anion gap 5 2 - 15 mmol/L [facility] BUN 25 6 - 25 mg/dL [facility] Creatinine 5.25(H) 0.60 - 1.10 mg/dL [facility] Glucose 100 70 - 199 mg/dL [facility] Comment: Interpretive Data Fasting glucose >/= 126 [...] 2022. Calcium 8.1(L) 8.5 - 10.3 mg/dL [facility] Blood 12/01/2024 10:2 8 PM PROJECT MANAGEMENT ENGINEER 12/01/2024 10:54 PM PROJECT MANAGEMENT ENGINEER Tito García NEWS CAMERA OPERATOR LAB BLOOD ORDERABLES Final Result Performing Organization Address City/[facility]/ZIP Co de Phone Number [facility] Department [place] [address] * (ABNORMAL) eGFR (11/30/2024 10:05 PM PROJECT MANAGEMENT ENGINEER) eGFR 12(L) >=60 mL/min/1. 73 m2 Comment: [...] reviewed 2021. Blood 11/30/2024 10:0 5 PM PROJECT MANAGEMENT ENGINEER 11/30/2024 10:37 PM PROJECT MANAGEMENT ENGINEER Tito García NP LAB BLOOD ORDERABLES Final Result Performing Organization Address City/[facility]/ZIP Co de Phone Number [facility] Department [place] [address] * (ABNORMAL) CBC without differential (11/30/2024 10:05 PM PROJECT MANAGEMENT ENGINEER) [facility] WBC 5.1 3.8 - 9.9 K/cumm Hgb 9.2(L) 11.9 - 15.5 g/dL [facility] Hct 29.5(L) 35.6 - 45.5 % [facility] Plt 161 150 - 400 K/cumm [facility] MPV 10.3 9.1 - 12.3 fL [facility] RBC 3.24(L) 3.90 - 5.20 M/cumm [facility] MCV 91.0 81.3 - 96.4 fL [facility] MCH 28.4 27.1 - 33.3 pg [facility] MCHC 31.2(L) 32.3 - 35.7 g/dL [facility] RDW CV 16.7(H) 11.1 - 14.9 % [facility] RDW SD 56.3(H) 35.7 - 48.1 fL [facility] NRBC abs 0.00 0.00 - 0.01 K/cumm [facility] Blood 11/30/2024 10:0 5 PM PROJECT MANAGEMENT ENGINEER 11/30/2024 10:39 PM PROJECT MANAGEMENT ENGINEER Tito García NEWS CAMERA OPERATOR LAB BLOOD ORDERABLES Final Result Performing Organization Address City/[facility]/ZIP Co de Phone Number [facility] [employer] [place] [address] * (ABNORMAL) Phosphorus (11/30/2024 10:05 PM PROJECT MANAGEMENT ENGINEER) [facility] Phosphorus, pl 1.3(L) 2.3 - 4.5 mg/dL Blood 11/30/2024 10:0 5 PM PROJECT MANAGEMENT ENGINEER 11/30/2024 10:37 PM PROJECT MANAGEMENT ENGINEER Tito García NEWS CAMERA OPERATOR LAB BLOOD ORDERABLES Final Result Performing Organization Address City/[facility]/ZIP Co de Phone Number [facility] [place] [address] * Magnesium (11/30/2024 10:05 PM PROJECT MANAGEMENT ENGINEER) Pathologist [facility] Magnesium 2.5 1.4 - 2.5 mg/dL Blood 11/30/2024 10:0 5 PM PROJECT MANAGEMENT ENGINEER 11/30/2024 10:37 PM PROJECT MANAGEMENT ENGINEER Tito García NEWS CAMERA OPERATOR LAB BLOOD ORDERABLES Final Result [facility] Department [place] [address] * (ABNORMAL) Basic metabolic panel (11/30/2024 10:05 PM PROJECT MANAGEMENT ENGINEER) Pathologist [facility] Sodium 133(L) 135 - 145 mmol/L Potassium, pl 4.5 3.3 - 4.9 mmol/L [facility] Chloride 98 97 - 110 mmol/L [facility] CO2 30 22 - 32 mmol/L [facility] Anion gap 5 2 - 15 mmol/L [facility] BUN 21 6 - 25 mg/dL [facility] Creatinine 4.12(H) 0.60 - 1.10 mg/dL [facility] Glucose 117 70 - 199 mg/dL [facility] Comment: Interpretive Data Fasting glucose >/= 126 [...] 2022. Calcium 8.3(L) 8.5 - 10.3 mg/dL [facility] Blood 11/30/2024 10:0 5 PM PROJECT MANAGEMENT ENGINEER 11/30/2024 10:37 PM PROJECT MANAGEMENT ENGINEER Tito García NEWS CAMERA OPERATOR LAB BLOOD ORDERABLES Final Result Performing Organization Address [facility]/ZIP Co de Phone Number [facility] Department [place] [address] * (ABNORMAL) eGFR (11/29/2024 10:10 PM PROJECT MANAGEMENT ENGINEER) Pathologist [facility] eGFR 23(L) >=60 mL/min/1. 73 m2 Comment: [...] reviewed 2021. Blood 11/29/2024 10:1 0 PM PROJECT MANAGEMENT ENGINEER 11/29/2024 10:59 PM PROJECT MANAGEMENT ENGINEER Tito García NP LAB BLOOD ORDERABLES Final Result [facility] [place] [address] * (ABNORMAL) CBC without differential (11/29/2024 10:10 PM PROJECT MANAGEMENT ENGINEER) [facility] WBC 4.6 3.8 - 9.9 K/cumm Hgb 9.0(L) 11.9 - 15.5 g/dL [facility] Hct 28.6(L) 35.6 - 45.5 % [facility] Plt 147(L) 150 - 400 K/cumm [facility] MPV 9.9 9.1 - 12.3 fL [facility] RBC 3.10(L) 3.90 - 5.20 M/cumm [facility] MCV 92.3 81.3 - 96.4 fL [facility] MCH 29.0 27.1 - 33.3 pg [facility] MCHC 31.5(L) 32.3 - 35.7 g/dL [facility] RDW CV 17.0(H) 11.1 - 14.9 % [facility] RDW SD 57.2(H) 35.7 - 48.1 fL [facility] NRBC abs 0.00 0.00 - 0.01 K/cumm [facility] Blood 11/29/2024 10:1 0 PM PROJECT MANAGEMENT ENGINEER 11/29/2024 11:11 PM PROJECT MANAGEMENT ENGINEER Tito García NP LAB BLOOD ORDERABLES Final Result Performing Organization Address City/[facility] Co de Phone Number [facility] [employer] [place] [address] * Type and screen (11/29/2024 10:10 PM PROJECT MANAGEMENT ENGINEER) Radha, indirect Negative ABO Rh B Positive [facility] Blood 11/29/2024 10:1 0 PM PROJECT MANAGEMENT ENGINEER 11/29/2024 10:55 PM PROJECT MANAGEMENT ENGINEER Narrative [facility] - 11/29/2024 11:58 PM PROJECT MANAGEMENT ENGINEER Has the patient had Daratumumab or Isatuximab in the past 6 months?->Unknown Tito García NP LAB BLOOD BANK TEST ORDERA BLES Final Result [facility] [employer] [place] [address] * (ABNORMAL) Phosphorus (11/29/2024 10:10 PM PROJECT MANAGEMENT ENGINEER) Phosphorus, pl 1.1(L) 2.3 - 4.5 mg/dL Blood 11/29/2024 10:1 0 PM PROJECT MANAGEMENT ENGINEER 11/29/2024 10:59 PM PROJECT MANAGEMENT ENGINEER Tito Youngoz NEWS CAMERA OPERATOR LAB BLOOD ORDERABLES Final Result Performing Organization Address City/[facility]/ZIP Co de Phone Number [facility] Department [place] [address] * Magnesium (11/29/2024 10:10 PM PROJECT MANAGEMENT ENGINEER) [facility] Magnesium 2.3 1.4 - 2.5 mg/dL Blood 11/29/2024 10:1 0 PM PROJECT MANAGEMENT ENGINEER 11/29/2024 10:59 PM PROJECT MANAGEMENT ENGINEER Tito García NEWS CAMERA OPERATOR LAB BLOOD ORDERABLES Final Result Performing Organization Address [facility] de Phone Number [facility] Department [place] [address] * (ABNORMAL) Basic metabolic panel (11/29/2024 10:10 PM PROJECT MANAGEMENT ENGINEER) [facility] Sodium 131(L) 135 - 145 mmol/L Potassium, pl 3.9 3.3 - 4.9 mmol/L [facility] Chloride 95(L) 97 - 110 mmol/L [facility] CO2 33(H) 22 - 32 mmol/L [facility] Anion gap 3 2 - 15 mmol/L [facility] BUN 10 6 - 25 mg/dL [facility] Creatinine 2.43(H) 0.60 - 1.10 mg/dL [facility] Glucose 112 70 - 199 mg/dL [facility] Comment: Interpretive Data Fasting glucose >/= 126 [...] 2022. Calcium 8.1(L) 8.5 - 10.3 mg/dL [facility] Blood 11/29/2024 10:1 0 PM PROJECT MANAGEMENT ENGINEER 11/29/2024 10:59 PM PROJECT MANAGEMENT ENGINEER Tito García NP LAB BLOOD ORDERABLES Final Result Performing Organization Address City/[facility]/ZIP Co de Phone Number [facility] [employer] [place] [address] * (ABNORMAL) eGFR (11/28/2024 10:29 PM PROJECT MANAGEMENT ENGINEER) eGFR 13(L) >=60 mL/min/1. 73 m2 Comment: [...] reviewed 2021. Blood 11/28/2024 10:2 9 PM PROJECT MANAGEMENT ENGINEER 11/28/2024 10:40 PM PROJECT MANAGEMENT ENGINEER Tito García NP LAB BLOOD ORDERABLES Final Result Performing Organization Address City/[facility]/ZIP Co de Phone Number [facility] [employer] [place] [address] * Blood culture Blood (11/28/2024 10:29 PM PROJECT MANAGEMENT ENGINEER) Report Final Report: No growth Blood 11/28/2024 10:2 9 PM PROJECT MANAGEMENT ENGINEER 11/28/2024 10:39 PM PROJECT MANAGEMENT ENGINEER Narrative [facility] - 12/03/2024 7:00 AM PROJECT MANAGEMENT ENGINEER Collection->Peripheral 1. Blood cultures are incubated for [...] performance characteristics have been verified by the [facility]. For questions about this culture, contact the Microbiology Laboratory at [phone]. Interpretive data was last revised on 24. Ana María Vaca NP LAB MICROBIOLOGY - GENERAL ORDERABLES Final Result [facility] Department [place] [address] * (ABNORMAL) CBC without differential (11/28/2024 10:29 PM PROJECT MANAGEMENT ENGINEER) [facility] WBC 4.7 3.8 - 9.9 K/cumm Hgb 9.0(L) 11.9 - 15.5 g/dL [facility] Hct 28.1(L) 35.6 - 45.5 % [facility] Plt 143(L) 150 - 400 K/cumm [facility] MPV 9.6 9.1 - 12.3 fL [facility] RBC 3.04(L) 3.90 - 5.20 M/cumm [facility] MCV 92.4 81.3 - 96.4 fL [facility] MCH 29.6 27.1 - 33.3 pg [facility] MCHC 32.0(L) 32.3 - 35.7 g/dL [facility] RDW CV 17.2(H) 11.1 - 14.9 % [facility] RDW SD 59.2(H) 35.7 - 48.1 fL [facility] NRBC abs 0.00 0.00 - 0.01 K/cumm [facility] Blood 11/28/2024 10:2 9 PM PROJECT MANAGEMENT ENGINEER 11/28/2024 10:41 PM PROJECT MANAGEMENT ENGINEER Tito García NEWS CAMERA OPERATOR LAB BLOOD ORDERABLES Final Result Performing Organization Address [facility] de Phone Number [facility] Department [place] [address] * (ABNORMAL) Phosphorus (11/28/2024 10:29 PM PROJECT MANAGEMENT ENGINEER) Phosphorus, pl 1.4(L) 2.3 - 4.5 mg/dL Blood 11/28/2024 10:2 9 PM PROJECT MANAGEMENT ENGINEER 11/28/2024 10:40 PM PROJECT MANAGEMENT ENGINEER Tito García NEWS CAMERA OPERATOR LAB BLOOD ORDERABLES Final Result Performing Organization Address [facility] de Phone Number [facility] Department [place] [address] * Magnesium (11/28/2024 10:29 PM PROJECT MANAGEMENT ENGINEER) Magnesium 2.2 1.4 - 2.5 mg/dL Blood 11/28/2024 10:2 9 PM PROJECT MANAGEMENT ENGINEER 11/28/2024 10:40 PM PROJECT MANAGEMENT ENGINEER Tito García NEWS CAMERA OPERATOR LAB BLOOD ORDERABLES Final Result Performing Organization Address City/[facility] de Phone Number [facility] Department [place] [address] * (ABNORMAL) Basic metabolic panel (11/28/2024 10:29 PM PROJECT MANAGEMENT ENGINEER) Sodium 131(L) 135 - 145 mmol/L Potassium, pl 3.9 3.3 - 4.9 mmol/L [facility] Chloride 96(L) 97 - 110 mmol/L [facility] CO2 30 22 - 32 mmol/L [facility] Anion gap 5 2 - 15 mmol/L [facility] BUN 14 6 - 25 mg/dL [facility] Creatinine 3.88(H) 0.60 - 1.10 mg/dL [facility] Glucose 84 70 - 199 mg/dL [facility] Comment: Interpretive Data Fasting glucose >/= 126 [...] 2022. Calcium 7.9(L) 8.5 - 10.3 mg/dL [facility] Blood 11/28/2024 10:2 9 PM PROJECT MANAGEMENT ENGINEER 11/28/2024 10:40 PM PROJECT MANAGEMENT ENGINEER Tito García NEWS CAMERA OPERATOR LAB BLOOD ORDERABLES Final Result [facility] Department [place] [address] * GENERAL (11/28/2024 12:40 PM PROJECT MANAGEMENT ENGINEER) Narrative Spencer Hogue MD - 11/28/2024 12:40 PM PROJECT MANAGEMENT ENGINEER Janett Reyes MD 11/28/2024 12:45 PM General - Inpatient Date/Time: 11/28/2024 12:40 PM Performed by: Janett Reyes MD Authorized by: Spencer Hogue MD [place] Protocol: RN Notified of Procedure: yes Informed consent: Risks, benefits, alternatives discussed and patient/telesales representative/guardian agrees and accepts Patient's stated name/ matches armband: Yes Allergies confirmed: yes Consent form signed, dated, timed; matches correct patient, intended procedure and site: Yes Procedure details: Ampicillin challenge Spencer Hogue MD IN CLINIC/BEDSIDE ORDERABLES Final Result * ECG 12 lead (11/28/2024 8:45 AM PROJECT MANAGEMENT ENGINEER) Ventricular Rate EKG/Min [address] [facility] Atrial Rate [address] [facility] [place]-Interval (MSEC) [address] [facility] QRS-Interval (MSEC) [address] [facility] QT-Interval (MSEC) [address] [facility] QTc [address] [facility] P [place] [address] [facility] R [place] -[address] [facility] T [place] [address] [facility] Diagnosis Normal sinus rhythm Possible Left atrial enlargement Left ventricular hypertrophy ( R in aVL , Davey product ) Abnormal ECG When compared with ECG of 28-NOV-2023 13:24, Minimal criteria for Septal infarct are no longer Present Confirmed by MICHELLE BAEZ M.D ([id number]) on 11/28/2024 1:32:[address] [facility] 11/28/2024 8:45 AM PROJECT MANAGEMENT ENGINEER 11/28/2024 1:32 PM PROJECT MANAGEMENT ENGINEER Delroy Troncoso MD ECG ORDERABLES Final R esult [facility] * (ABNORMAL) eGFR (11/27/2024 9:57 PM PROJECT MANAGEMENT ENGINEER) eGFR 27(L) >=60 mL/min/1. 73 m2 Comment: [...] last reviewed 2021. Blood 11/27/2024 9:57 PM PROJECT MANAGEMENT ENGINEER 11/27/2024 10:18 PM PROJECT MANAGEMENT ENGINEER Tito García NP LAB BLOOD ORDERABLES Final Result [facility] Department [place] [address] * Blood culture Blood (11/27/2024 9:57 PM PROJECT MANAGEMENT ENGINEER) Report Final Report: No growth Blood 11/27/2024 9:57 PM PROJECT MANAGEMENT ENGINEER 11/27/2024 10:18 PM PROJECT MANAGEMENT ENGINEER Narrative [facility] - 12/02/2024 7:01 AM PROJECT MANAGEMENT ENGINEER Collection->Peripheral 1. Blood cultures are incubated for [...] performance characteristics have been verified by the [facility]. For questions about this culture, contact the Microbiology Laboratory at [phone]. Interpretive data was last revised on 24. us Ana María Vaca NEWS CAMERA OPERATOR LAB MICROBIOLOGY - GENERAL ORDERABLES Final Result Performing Organization Address City/[facility]/ZIP Co de Phone Number [facility] Department [place] [address] * (ABNORMAL) CBC without differential (11/27/2024 9:57 PM PROJECT MANAGEMENT ENGINEER) [facility] WBC 4.4 3.8 - 9.9 K/cumm Hgb 9.6(L) 11.9 - 15.5 g/dL [facility] Hct 30.0(L) 35.6 - 45.5 % [facility] Plt 169 150 - 400 K/cumm [facility] MPV 9.6 9.1 - 12.3 fL [facility] RBC 3.29(L) 3.90 - 5.20 M/cumm [facility] MCV 91.2 81.3 - 96.4 fL [facility] MCH 29.2 27.1 - 33.3 pg [facility] MCHC 32.0(L) 32.3 - 35.7 g/dL [facility] RDW CV 17.4(H) 11.1 - 14.9 % [facility] RDW SD 58.7(H) 35.7 - 48.1 fL [facility] NRBC abs 0.00 0.00 - 0.01 K/cumm [facility] Blood 11/27/2024 9:57 PM PROJECT MANAGEMENT ENGINEER 11/27/2024 10:19 PM PROJECT MANAGEMENT ENGINEER Tito García NEWS CAMERA OPERATOR LAB BLOOD ORDERABLES Final Result Performing Organization Address City/[facility]/ZIP Co de Phone Number [facility] Department [place] [address] * (ABNORMAL) Phosphorus (11/27/2024 9:57 PM PROJECT MANAGEMENT ENGINEER) [facility] Phosphorus, pl 1.1(L) 2.3 - 4.5 mg/dL Blood 11/27/2024 9:57 PM PROJECT MANAGEMENT ENGINEER 11/27/2024 10:18 PM PROJECT MANAGEMENT ENGINEER Tito García NEWS CAMERA OPERATOR LAB BLOOD ORDERABLES Final Result Performing Organization Address City/[facility]/ZIP Co de Phone Number [facility] Department [place] [address] * Magnesium (11/27/2024 9:57 PM PROJECT MANAGEMENT ENGINEER) [facility] Magnesium 1.9 1.4 - 2.5 mg/dL Blood 11/27/2024 9:57 PM PROJECT MANAGEMENT ENGINEER 11/27/2024 10:18 PM PROJECT MANAGEMENT ENGINEER Tito García LAB BLOOD ORDERABLES Final Result Performing Organization Address City/[facility] de Phone Number [facility] Department [place] [address] * (ABNORMAL) Basic metabolic panel (11/27/2024 9:57 PM PROJECT MANAGEMENT ENGINEER) [facility] Sodium 133(L) 135 - 145 mmol/L Potassium, pl 3.5 3.3 - 4.9 mmol/L [facility] Chloride 95(L) 97 - 110 mmol/L [facility] CO2 32 22 - 32 mmol/L [facility] Anion gap 6 2 - 15 mmol/L [facility] BUN 4(L) 6 - 25 mg/dL [facility] Creatinine 2.15(H) 0.60 - 1.10 mg/dL [facility] Glucose 138 70 - 199 mg/dL [facility] Comment: Interpretive Data Fasting glucose >/= 126 [...] 2022. Calcium 8.2(L) 8.5 - 10.3 mg/dL [facility] Blood 11/27/2024 9:57 PM PROJECT MANAGEMENT ENGINEER 11/27/2024 10:18 PM PROJECT MANAGEMENT ENGINEER Tito García NP LAB BLOOD ORDERABLES Final Result [facility] Department [place] [address] * Blood culture Blood (11/27/2024 2:02 PM PROJECT MANAGEMENT ENGINEER) Report Final Report: No growth Blood 11/27/2024 2:02 PM PROJECT MANAGEMENT ENGINEER 11/27/2024 2:24 PM PROJECT MANAGEMENT ENGINEER Narrative [facility] - 12/01/2024 4:00 PM PROJECT MANAGEMENT ENGINEER Collection->Peripheral 1. Blood cultures are incubated for [...] performance characteristics have been verified by the [facility]. For questions about this culture, contact the Microbiology Laboratory at [phone]. Interpretive data was last revised on 24. us Ana María Vaca NEWS CAMERA OPERATOR LAB MICROBIOLOGY - GENERAL ORDERABLES Final Result [facility] Department [place] [address] * TRANSESOPHAGEAL ECHO (KALEN) W DOPPLER/CF WO CONTRAST (11/27/2024 12:37 PM PROJECT MANAGEMENT ENGINEER) LV EF 60-65 % CONS SCIMAGE Anatomical Region Laterality Modality Echocardiography 11/27/2024 12:0 2 PM PROJECT MANAGEMENT ENGINEER Narrative 11/27/2024 12:41 PM PROJECT MANAGEMENT ENGINEER [facility] [place] [address] Transesophageal Echocardiographic Report Patient Name: QUIN MILLER J : 1970 (54y 4m) Gender: F Study Date: 11/27/2024 12:02:57 PM Ht(Inch): Wt(Lb): BSA: Quality Assurance Associate: Location: [id number] Order Provider: ESTHER RICHARDS Heart Rate: 78 BMI: Quality: Good Ref Provider: ESTHER RICHARDS Report amended on 2024-12-25 at 11:30:19 PROJECT MANAGEMENT ENGINEER: Deleted: Tricuspid Valve: [REMOVED] Tricuspid Vegetation: There is no evidence of tricuspid valve vegetation. Previously Signed by:Mac Clifton MD 2024-12-18 15:10:07 PROJECT MANAGEMENT ENGINEER End of Addendum Report amended on 2024-12-18 at 15:10:07 PROJECT MANAGEMENT ENGINEER: Added/Modified: Performing Physician [ADDED]: [ADDED] Performed by [...] MD Previously Signed by:John 11/27/2024 12:41:30 PM PROJECT MANAGEMENT ENGINEER and Mac Clifton MD 11/27/2024 12:41:30 PM PROJECT MANAGEMENT ENGINEER End of Addendum PROCEDURES: Transesophageal Echo Report: [id number] Echocardiography, transesophageal, real-time with image documentation (2D) including probe placement, image acquisition, interpretation, and report; +[id number] Doppler echocardiography, limited pulsed wave and/or continuous wave with spectral display; +[id number] Doppler echocardiography color flow velocity mapping; [id number] 3D echocardiography, rendering with interpretation and reporting, [...] By: Mac Clifton MD 11/27/2024 12:41:30 PM PROJECT MANAGEMENT ENGINEER Electronically Signed By: Mac Clifton MD 11/27/2024 12:41:30 PM PROJECT MANAGEMENT ENGINEER Electronically Amended By: Mac Clifton MD 2024-12-18 15:10:07 PROJECT MANAGEMENT ENGINEER [ADDENDUM] Electronically Amended By: Mac Clifton MD 12/25/2024 11:30:19 AM PROJECT MANAGEMENT ENGINEER [ADDENDUM] Procedure Note Mac Negron MD - 12/25/2024 [facility] [place] [address] Transesophageal Echocardiographic Report Patient Name: QUIN MILLER J : 1970 (54y 4m) Gender: F Study Date: 11/27/2024 12:02:57 PM Ht(Inch): Wt(Lb): BSA: Quality Assurance Associate: Location: [id number] Order Provider:ESTHER RICHARDS Heart Rate: 78 BMI: Quality: Good Ref Provider: ESTHER RICHARDS Report amended on 2024-12-25 at 11:30:19 PROJECT MANAGEMENT ENGINEER: Deleted: Tricuspid Valve: [REMOVED] Tricuspid Vegetation: There is no evidence of tricuspid valvevegetation. Previously Signed by:Mac Clifton MD 2024-12-18 15:10:07 PROJECT MANAGEMENT ENGINEER End of Addendum Report amended on 2024-12-18 at 15:10:07 PROJECT MANAGEMENT ENGINEER: Added/Modified: Performing Physician [ADDED]: [ADDED] Performed by [...] MD Previously Signed by:John 11/27/2024 12:41:30 PM PROJECT MANAGEMENT ENGINEER and Raquel GRANADOS 11/27/2024 12:41:30 PM PROJECT MANAGEMENT ENGINEER End of Addendum PROCEDURES: Transesophageal Echo Report: [id number] Echocardiography, transesophageal,real-time with image documentation (2D) including probe placement, image acquisition,interpretation, and report; +[id number] Doppler echocardiography, limited pulsed wave and/orcontinuous wave with spectral display; +[id number] Doppler echocardiography color flow velocitymapping; [id number] 3D echocardiography, rendering with interpretation and reporting, [...] By: Mac Clifton MD 11/27/2024 12:41:30 PM PROJECT MANAGEMENT ENGINEER Electronically Signed By: Mac Clifton MD 11/27/2024 12:41:30 PM PROJECT MANAGEMENT ENGINEER Electronically Amended By: Mac Clifton MD 2024-12-18 15:10:07 PROJECT MANAGEMENT ENGINEER [ADDENDUM] Electronically Amended By: Mac Clifton MD 12/25/2024 11:30:19 AM PROJECT MANAGEMENT ENGINEER [ADDENDUM] us Esther Richards NP CV ECHO PROCEDUR ES Edited Result - Final * POC Blood Gas and Chemistries, Arterial - (11/27/2024 11:02 AM PROJECT MANAGEMENT ENGINEER) K POC 4.6 3.3 - 4.9 mmol/L Comment: Interpretive Data Not all point of care methods assess for hemolysis. Confirm with instrument and retest K+ if not consistent with clinical signs and symptoms. Current Interpretive Data was last revised on 2024. Blood 11/27/2024 11:0 2 AM PROJECT MANAGEMENT ENGINEER 11/27/2024 11:02 AM PROJECT MANAGEMENT ENGINEER us Delroy Troncoso MD LAB POCT ORDERABLES - D EVICE Final Result [facility] Department [place] [address] * MRI Brain WO Contrast (11/27/2024 2:47 AM PROJECT MANAGEMENT ENGINEER) Anatomical Region Laterality Modality Head and Neck N/A Magnetic Resonan ce 11/27/2024 6:1 5 AM PROJECT MANAGEMENT ENGINEER Impressions 11/27/2024 6:15 AM PROJECT MANAGEMENT ENGINEER 1. No acute intracranial abnormality identified including no acute infarction or evidence of intracranial hemorrhage. 2. A few punctate foci of subcortical FLAIR hyperintensity. While nonspecific, this may represent sequela of mild chronic small vessel ischemic disease. 3. Right ostiomeatal unit pattern sinus disease. Electronically signed by: Chacho Hartman M.D. Narrative 11/27/2024 6:15 AM PROJECT MANAGEMENT ENGINEER EXAMINATION: Magnetic resonance imaging (MRI) of the [...] signed by: Chacho Hartman M.D. Esther Richards NEWS CAMERA OPERATOR IMG MRI PROCEDUR ES Final Result * (ABNORMAL) eGFR (11/26/2024 11:09 PM PROJECT MANAGEMENT ENGINEER) eGFR 12(L) >=60 mL/min/1. 73 m2 Comment: [...] reviewed 2021. Blood 11/26/2024 11:0 9 PM PROJECT MANAGEMENT ENGINEER 11/26/2024 11:56 PM PROJECT MANAGEMENT ENGINEER Tito García NP LAB BLOOD ORDERABLES Final Result [facility] [place] [address] * (ABNORMAL) CBC without differential (11/26/2024 11:09 PM PROJECT MANAGEMENT ENGINEER) WBC 5.1 3.8 - 9.9 K/cumm Hgb 9.0(L) 11.9 - 15.5 g/dL [facility] Hct 28.7(L) 35.6 - 45.5 % [facility] Plt 175 150 - 400 K/cumm [facility] MPV 10.8 9.1 - 12.3 fL [facility] RBC 3.09(L) 3.90 - 5.20 M/cumm [facility] MCV 92.9 81.3 - 96.4 fL [facility] MCH 29.1 27.1 - 33.3 pg [facility] MCHC 31.4(L) 32.3 - 35.7 g/dL [facility] RDW CV 17.9(H) 11.1 - 14.9 % [facility] RDW SD 60.7(H) 35.7 - 48.1 fL [facility] NRBC abs 0.00 0.00 - 0.01 K/cumm [facility] Blood 11/26/2024 11:0 9 PM PROJECT MANAGEMENT ENGINEER 11/26/2024 11:52 PM PROJECT MANAGEMENT ENGINEER us Tito García NP LAB BLOOD ORDERABLES Final Result [facility] [place] [address] * Type and screen (11/26/2024 11:09 PM PROJECT MANAGEMENT ENGINEER) [facility] ABO Rh B Positive Radha, indirect Negative [facility] Blood 11/26/2024 11:0 9 PM PROJECT MANAGEMENT ENGINEER 11/27/2024 12:06 AM PROJECT MANAGEMENT ENGINEER Narrative [facility] - 11/27/2024 1:18 AM PROJECT MANAGEMENT ENGINEER Has the patient had Daratumumab or Isatuximab in the past 6 months?->Unknown Tito García NEWS CAMERA OPERATOR LAB BLOOD BANK TEST ORDERA BLES Final Result [facility] Department [place] [address] * (ABNORMAL) Phosphorus (11/26/2024 11:09 PM PROJECT MANAGEMENT ENGINEER) [facility] Phosphorus, pl 1.8(L) 2.3 - 4.5 mg/dL Blood 11/26/2024 11:0 9 PM PROJECT MANAGEMENT ENGINEER 11/26/2024 11:56 PM PROJECT MANAGEMENT ENGINEER Tito García NP LAB BLOOD ORDERABLES Final Result Performing Organization Address City/[facility]/ZIP Co de Phone Number [facility] Department [place] [address] * Magnesium (11/26/2024 11:09 PM PROJECT MANAGEMENT ENGINEER) [facility] Magnesium 2.4 1.4 - 2.5 mg/dL Blood 11/26/2024 11:0 9 PM PROJECT MANAGEMENT ENGINEER 11/26/2024 11:56 PM PROJECT MANAGEMENT ENGINEER Tito García NP LAB BLOOD ORDERABLES Final Result Performing Organization Address City/[facility]/ZIP Co de Phone Number [facility] Department [place] [address] * (ABNORMAL) Basic metabolic panel (11/26/2024 11:09 PM PROJECT MANAGEMENT ENGINEER) [facility] Sodium 131(L) 135 - 145 mmol/L Potassium, pl 4.5 3.3 - 4.9 mmol/L [facility] Comment:Hemolyzed; Potassium value may be falsely elevated by as much as 0.6-1.0 mmol/L. Suggest redraw and reanalysis. Chloride 97 97 - 110 mmol/L [facility] CO2 29 22 - 32 mmol/L [facility] Anion gap 5 2 - 15 mmol/L [facility] BUN 12 6 - 25 mg/dL [facility] Creatinine 4.29(H) 0.60 - 1.10 mg/dL [facility] Glucose 160 70 - 199 mg/dL [facility] Comment: Interpretive Data Fasting glucose >/= 126 [...] 2022. Calcium 8.3(L) 8.5 - 10.3 mg/dL [facility] Blood 11/26/2024 11:0 9 PM PROJECT MANAGEMENT ENGINEER 11/26/2024 11:56 PM PROJECT MANAGEMENT ENGINEER us Tito García NEWS CAMERA OPERATOR LAB BLOOD ORDERABLES Final Result [facility] Department [place] [address] * (ABNORMAL) Potassium (11/26/2024 8:26 AM PROJECT MANAGEMENT ENGINEER) [facility] Potassium, pl 5.0(H) 3.3 - 4.9 mmol/L Blood 11/26/2024 8:26 AM PROJECT MANAGEMENT ENGINEER 11/26/2024 9:40 AM PROJECT MANAGEMENT ENGINEER us Ana María Vaca NEWS CAMERA OPERATOR LAB BLOOD ORDERABLES Final Result Performing Organization Address [facility] Co de Phone Number [facility] [place] [address] * Tacrolimus level trough (11/26/2024 5:10 AM PROJECT MANAGEMENT ENGINEER) Tacrolimus trough 2.0 ng/mL Comment: Interpretive Data Testing performed by liquid chromatography-tandem mass spectrometry. Therapeutic concentrations vary depending on type of transplanted organ and time elapsed since transplant. Typical trough concentrations range from 5-15 ng/mL. This test was developed and its performance characteristics determined by the [facility] consistent with CLIA requirements. This test has not been cleared or approved by the [place] Food and Drug administration. Current interpretive data last reviewed 2020. Blood 11/26/2024 5:10 AM PROJECT MANAGEMENT ENGINEER 11/26/2024 5:54 AM PROJECT MANAGEMENT ENGINEER Narrative [facility] - 11/26/2024 11:14 AM PROJECT MANAGEMENT ENGINEER Please collect 12 hours after last dose of tacrolimus. Thank you! Alejandra Bautista NEWS CAMERA OPERATOR LAB BLOOD ORDERABLES Sarah l Result Performing Organization Address [facility] Co de Phone Number [facility] [place] [address] * (ABNORMAL) Potassium (11/26/2024 5:10 AM PROJECT MANAGEMENT ENGINEER) Potassium, pl 6.0(H) 3.3 - 4.9 mmol/L Comment:Hemolyzed; Potassium value may be falsely elevated by as much as 0.6-1.0 mmol/L. Suggest redraw and reanalysis. Blood 11/26/2024 5:10 AM PROJECT MANAGEMENT ENGINEER 11/26/2024 5:53 AM PROJECT MANAGEMENT ENGINEER Ana María Vaca NEWS CAMERA OPERATOR LAB BLOOD ORDERABLES Final Result Performing Organization Address [facility] Co de Phone Number [facility] [place] [address] * CTA Chest Abdomen Pelvis (11/26/2024 1:56 AM PROJECT MANAGEMENT ENGINEER) Anatomical Region Laterality Modality Body N/A Computed Tomogra phy 11/26/2024 9:22 AM PROJECT MANAGEMENT ENGINEER Impressions 11/26/2024 10:25 AM PROJECT MANAGEMENT ENGINEER 1. Location of vasculature posterior to sternum [...] Vinny Gomez M.D. Narrative 11/26/2024 10:25 AM PROJECT MANAGEMENT ENGINEER EXAMINATION: CT of the chest, abdomen, and [...] adrenal glands are normal. 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 There are multiple small bilateral nonobstructing renal stones and cysts, including some cysts with thin septations. No hydronephrosis of the stockbridge kidneys. There is a right iliac fossa [...] adrenal glands are normal. 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 There are multiple small bilateral nonobstructing renal stones and cysts, including some cysts with thin septations. No hydronephrosis of the stockbridge kidneys. There is a right iliac fossa [...] CT Head WO Contrast (11/26/2024 1:56 AM PROJECT MANAGEMENT ENGINEER) Anatomical Region Laterality Modality Head and Neck N/A Computed Tomogra phy 11/26/2024 4:32 AM PROJECT MANAGEMENT ENGINEER Impressions 11/26/2024 2:18 PM PROJECT MANAGEMENT ENGINEER 1. No acute intracranial hemorrhage or acute edematous large territory infarct. 2. Right maxillary, anterior ethmoid, and frontal sinus mucosal opacification suggesting ostiomeatal unit obstructive pattern. Dictated by: Jaskaran Brian MD The radiology attending physician has personally reviewed this study, and had reviewed and/or edited this written report and agrees with it. Electronically signed by: Amrik Narvaez M.D. Narrative 11/26/2024 2:18 PM PROJECT MANAGEMENT ENGINEER EXAMINATION: CT head without contrast HISTORY: Preoperative [...] effect or midline shift is present. The baer-white matter differentiation is normal. The visualized portions [...] signed by: Amrik Narvaez M.D. Amado Patiño NP IMG CT PROCEDURES Final Resu lt * (ABNORMAL) eGFR (11/25/2024 11:33 PM PROJECT MANAGEMENT ENGINEER) eGFR 21(L) >=60 mL/min/1. 73 m2 Comment: [...] reviewed 2021. Blood 11/25/2024 11:3 3 PM PROJECT MANAGEMENT ENGINEER 11/26/2024 12:13 AM PROJECT MANAGEMENT ENGINEER Tito García NP LAB BLOOD ORDERABLES Final Result [facility] Department [place] [address] * (ABNORMAL) CBC without differential (11/25/2024 11:33 PM PROJECT MANAGEMENT ENGINEER) WBC 6.2 3.8 - 9.9 K/cumm Hgb 9.0(L) 11.9 - 15.5 g/dL [facility] Hct 28.5(L) 35.6 - 45.5 % [facility] Plt 173 150 - 400 K/cumm [facility] MPV 10.3 9.1 - 12.3 fL [facility] RBC 3.06(L) 3.90 - 5.20 M/cumm [facility] MCV 93.1 81.3 - 96.4 fL [facility] MCH 29.4 27.1 - 33.3 pg [facility] MCHC 31.6(L) 32.3 - 35.7 g/dL [facility] RDW CV 17.9(H) 11.1 - 14.9 % [facility] RDW SD 61.8(H) 35.7 - 48.1 fL [facility] NRBC abs 0.00 0.00 - 0.01 K/cumm [facility] Blood 11/25/2024 11:3 3 PM PROJECT MANAGEMENT ENGINEER 11/26/2024 12:19 AM PROJECT MANAGEMENT ENGINEER Tito García NP LAB BLOOD ORDERABLES Final Result [facility] [place] [address] * (ABNORMAL) Phosphorus (11/25/2024 11:33 PM PROJECT MANAGEMENT ENGINEER) Pathologist [facility] Phosphorus, pl 1.6(L) 2.3 - 4.5 mg/dL Blood 11/25/2024 11:3 3 PM PROJECT MANAGEMENT ENGINEER 11/26/2024 12:13 AM PROJECT MANAGEMENT ENGINEER Tito García NEWS CAMERA OPERATOR LAB BLOOD [place] [address] * Magnesium (11/25/2024 11:33 PM PROJECT MANAGEMENT ENGINEER) [facility] Magnesium 2.2 1.4 - 2.5 mg/dL Blood 11/25/2024 11:3 3 PM PROJECT MANAGEMENT ENGINEER 11/26/2024 12:13 AM PROJECT MANAGEMENT ENGINEER Tito García NEWS CAMERA OPERATOR LAB BLOOD ORDERABLES Final Result Performing Organization Address City/[facility]/ZIP Co de Phone Number [facility] Department [place] [address] * (ABNORMAL) Creatine kinase (CK), total (11/25/2024 11:33 PM PROJECT MANAGEMENT ENGINEER) [facility] CK 26(L) 30 - 200 Units/L Blood 11/25/2024 11:3 3 PM PROJECT MANAGEMENT ENGINEER 11/26/2024 12:13 AM PROJECT MANAGEMENT ENGINEER Ana María Vaca NEWS CAMERA OPERATOR LAB BLOOD ORDERABLES Final Result Performing Organization Address City/[facility]/ZIP Co de Phone Number [facility] [place] [address] * (ABNORMAL) Basic metabolic panel (11/25/2024 11:33 PM PROJECT MANAGEMENT ENGINEER) Sodium 132(L) 135 - 145 mmol/L Potassium, pl 4.3 3.3 - 4.9 mmol/L [facility] Chloride 98 97 - 110 mmol/L [facility] Comment:Repeated and Verifie d CO2 34(H) 22 - 32 mmol/L [facility] Anion gap <1(L) 2 - 15 mmol/L [facility] Comment:Repeated and Verifie d BUN 8 6 - 25 mg/dL [facility] Creatinine 2.62(H) 0.60 - 1.10 mg/dL [facility] Glucose 116 70 - 199 mg/dL [facility] Comment: Interpretive Data Fasting glucose >/= 126 [...] 2022. Calcium 8.0(L) 8.5 - 10.3 mg/dL [facility] Blood 11/25/2024 11:3 3 PM PROJECT MANAGEMENT ENGINEER 11/26/2024 12:13 AM PROJECT MANAGEMENT ENGINEER us Tito García NP LAB BLOOD ORDERABLES Final Result [facility] Department [place] [address] * US Outside Reference (11/25/2024 3:55 PM PROJECT MANAGEMENT ENGINEER) Impressions RAD_[facility] - 11/25/2024 3:55 PM PROJECT MANAGEMENT ENGINEER These images are for Reference purposes only and have not been reviewed by [facility] Radiology. There will be no report generated by a [facility] Radiologist. Narrative [facility]_P[facility] - 11/25/2024 3:55 PM PROJECT MANAGEMENT ENGINEER EXAMINATION: Images For Reference Purposes Only Delroy Troncoso MD IMG US PROCEDURES Final Result Performing Organization Address City/[facility] Co de Phone Number [email or web address] * Hepatitis B Surface Antigen Blood (11/25/2024 3:24 PM PROJECT MANAGEMENT ENGINEER) [facility] HepBsAg Nonreactive Nonreactive Blood 11/25/2024 3:24 PM PROJECT MANAGEMENT ENGINEER 11/25/2024 3:59 PM PROJECT MANAGEMENT ENGINEER Edmundo Velasquez NEWS CAMERA OPERATOR LAB MICROBIOLOGY - GENE RAL ORDERABLES Final Result Performing Organization Address [facility] de Phone Number [facility] Department [place] [address] * Infection Prevention Leidy auris PCR, surveillance Axilla/Groin (11/25/2024 9:57 AM PROJECT MANAGEMENT ENGINEER) [facility] Leidy auris DNA Not Detected Not Detected [facility] Comment: Interpretive Data Testing performed by [facility] using the Jannie dawson 6800 Leidy auris assay. This assay detects DNA from Leidy auris using Real-Time PCR. This assay is laboratory developed and is not cleared by the [facility] Food and Drug Administration. The performance characteristics have been verified by the [facility]. Axilla/Groin 11/25/2024 9:57 AM PROJECT MANAGEMENT ENGINEER 11/25/2024 10:13 AM PROJECT MANAGEMENT ENGINEER Paco Hunter MD LAB MICROBIOLOGY - GENERAL ORDER CHERI Final Result Performing Organization Address [facility] Co de Phone Number [facility] Department [place] [address] [facility] * Tacrolimus level trough (11/25/2024 9:57 AM PROJECT MANAGEMENT ENGINEER) [facility] Tacrolimus trough 3.8 ng/mL Comment: Interpretive Data Testing performed by liquid chromatography-tandem mass spectrometry. Therapeutic concentrations vary depending on type of transplanted organ and time elapsed since transplant. Typical trough concentrations range from 5-15 ng/mL. This test was developed and its performance characteristics determined by the [facility] consistent with CLIA requirements. This test has not been cleared or approved by the [place] Food and Drug administration. Current interpretive data last reviewed 2020. Blood 11/25/2024 9:57 AM PROJECT MANAGEMENT ENGINEER 11/25/2024 10:20 AM PROJECT MANAGEMENT ENGINEER Amado Patiño NP LAB BLOOD ORDERABLES Final R esult Performing Organization Address [facility] Co de Phone Number [facility] Department [place] [address] * (ABNORMAL) Potassium, whole blood (11/25/2024 7:47 AM PROJECT MANAGEMENT ENGINEER) Potassium, bld 6.4(C) 3.3 - 4.9 mmol/L Comment: Verified Specimen not hemolyzed. Repeated and verified. Blood 11/25/2024 7:47 AM PROJECT MANAGEMENT ENGINEER 11/25/2024 7:56 AM PROJECT MANAGEMENT ENGINEER Amado Patiño NP LAB BLOOD ORDERABLES Final R esult Performing Organization Address [facility] de Phone Number [facility] Department [place] [address] * Critical Result Callback Chemistry (11/25/2024 7:47 AM PROJECT MANAGEMENT ENGINEER) Date Notified [id number] Time Notified [address]19 MICHELET JARAMILLO TestName Potassium WB MICHELET BOWIE Called/Read Back Anthony JARAMILLO Credentials RN MICHELET JARAMILLO Called By WALKER BOWIE Blood 11/25/2024 7:47 AM PROJECT MANAGEMENT ENGINEER 11/25/2024 7:56 AM PROJECT MANAGEMENT ENGINEER Amado Patiño NP LAB BLOOD ORDERABLES Final R esult Performing Organization Address [facility] Co de Phone Number JONER [facility] [place] [address] * POCT glucose (11/25/2024 7:37 AM PROJECT MANAGEMENT ENGINEER) Pathologist [facility] Glucose, POC 77 70 - 199 mg/dL Blood 11/25/2024 7:37 AM PROJECT MANAGEMENT ENGINEER 11/25/2024 7:37 AM PROJECT MANAGEMENT ENGINEER Delroy Troncoso MD LAB POCT ORDERABLES - D EVICE Final Result [facility] [place] [address] * (ABNORMAL) eGFR (11/25/2024 5:43 AM PROJECT MANAGEMENT ENGINEER) [facility] eGFR 8(L) >=60 mL/min/1. 73 m2 Comment: [...] last reviewed 2021. Blood 11/25/2024 5:43 AM PROJECT MANAGEMENT ENGINEER 11/25/2024 6:45 AM PROJECT MANAGEMENT ENGINEER us Delroy Troncoso MD LAB BLOOD ORDERABLES Fi nal Result MICHELET [facility] [place] [address] * Critical Result Callback Chemistry (11/25/2024 5:43 AM PROJECT MANAGEMENT ENGINEER) Date Notified [id number] Time Notified 716 MICHELET JARAMILLO TestName Potassium Plas MICHELET BOWIE Called/Read Back Maria Isabelpamela JARAMILLO Credentials RN MICHELET BOWIE Called By hunter BOWIE Blood 11/25/2024 5:43 AM PROJECT MANAGEMENT ENGINEER 11/25/2024 6:45 AM PROJECT MANAGEMENT ENGINEER us Delroy Troncoso MD LAB BLOOD ORDERABLES Fi nal Result MICHELET JARAMILLO [facility] Department [place] [address] * Blood culture Blood (11/25/2024 5:43 AM PROJECT MANAGEMENT ENGINEER) Report Final Report: No growth Blood 11/25/2024 5:43 AM PROJECT MANAGEMENT ENGINEER 11/25/2024 7:25 AM PROJECT MANAGEMENT ENGINEER Narrative [facility] - 11/29/2024 12:00 PM PROJECT MANAGEMENT ENGINEER Collection->Peripheral 1. Blood cultures are incubated for [...] performance characteristics have been verified by the [facility]. For questions about this culture, contact the Microbiology Laboratory at [phone]. Interpretive data was last revised on 24. Delroy Troncoso MD LAB MICROBIOLOGY - GENE RAL ORDERABLES Final Result Performing Organization Address [facility] Co de Phone Number MICHELET JARAMILLO [facility] Department [place] [address] * Blood culture Blood (11/25/2024 5:43 AM PROJECT MANAGEMENT ENGINEER) Report Final Report: No growth Blood 11/25/2024 5:43 AM PROJECT MANAGEMENT ENGINEER 11/25/2024 7:25 AM PROJECT MANAGEMENT ENGINEER Narrative [facility] - 11/29/2024 12:00 PM PROJECT MANAGEMENT ENGINEER Collection->Peripheral 1. Blood cultures are incubated for [...] performance characteristics have been verified by the [facility]. For questions about this culture, contact the Microbiology Laboratory at [phone]. Interpretive data was last revised on 24. Delroy Troncoso MD LAB MICROBIOLOGY - GENE RAL ORDERABLES Final Result Performing Organization Address [facility] Co de Phone Number MICHELET JARAMILLO [facility] Department [place] [address] * aPTT (11/25/2024 5:43 AM PROJECT MANAGEMENT ENGINEER) Pathologist [facility] aPTT 33 28 - 38 sec Comment: Interpretive Data Heparin therapeutic range: 66.0 - 100.0 seconds. Range based on correlation with therapeutic heparin activity range of 0.3 - 0.7 Units/mL. Current interpretive data was last revised on 2023. Blood 11/25/2024 5:43 AM PROJECT MANAGEMENT ENGINEER 11/25/2024 7:00 AM PROJECT MANAGEMENT ENGINEER Delroy Troncoso MD LAB BLOOD ORDERABLES Fi nal Result Performing Organization Address [facility] de Phone Number [facility] [place] [address] * Protime-INR (11/25/2024 5:43 AM PROJECT MANAGEMENT ENGINEER) Pathologist [facility] PT 12.5 9.7 - 13.0 sec INR 1.15 0.90 - 1.20 [facility] Comment: Interpretive data Oral anticoagulant therapeutic ranges: Venous thromboembolism prophylaxis or treatment: 2.0-3.0 CARDIOLOGY Standard range: 2.0-3.0 High-intensity range: 2.5-3.5 Refer to indication-specific guidelines for appropriate target ranges for prosthetic heart valve replacement. Current interpretive data was last revised on 2019. Blood 11/25/2024 5:43 AM PROJECT MANAGEMENT ENGINEER 11/25/2024 7:00 AM PROJECT MANAGEMENT ENGINEER Delroy Troncoso MD LAB BLOOD ORDERABLES Fi nal Result Performing Organization Address [facility] de Phone Number [facility] [place] [address] * (ABNORMAL) CBC without differential (11/25/2024 5:43 AM PROJECT MANAGEMENT ENGINEER) Pathologist [facility] WBC 5.3 3.8 - 9.9 K/cumm Hgb 9.2(L) 11.9 - 15.5 g/dL [facility] Hct 29.7(L) 35.6 - 45.5 % [facility] Plt 172 150 - 400 K/cumm [facility] MPV 9.8 9.1 - 12.3 fL [facility] RBC 3.20(L) 3.90 - 5.20 M/cumm [facility] MCV 92.8 81.3 - 96.4 fL [facility] MCH 28.8 27.1 - 33.3 pg [facility] MCHC 31.0(L) 32.3 - 35.7 g/dL [facility] RDW CV 17.6(H) 11.1 - 14.9 % [facility] RDW SD 59.6(H) 35.7 - 48.1 fL [facility] NRBC abs 0.00 0.00 - 0.01 K/cumm [facility] Blood 11/25/2024 5:43 AM PROJECT MANAGEMENT ENGINEER 11/25/2024 6:45 AM PROJECT MANAGEMENT ENGINEER Derloy Troncoso MD LAB BLOOD ORDERABLES Fi nal Result [facility] [employer] [place] [address] * Type and screen (11/25/2024 5:43 AM PROJECT MANAGEMENT ENGINEER) Pathologist [facility] ABO Rh B Positive Radha, indirect Negative [facility] Blood 11/25/2024 5:43 AM PROJECT MANAGEMENT ENGINEER 11/25/2024 6:50 AM PROJECT MANAGEMENT ENGINEER Narrative [facility] - 11/25/2024 7:53 AM PROJECT MANAGEMENT ENGINEER Has the patient had Daratumumab or Isatuximab in the past 6 months?->Unknown Delroy Troncoso MD LAB BLOOD BANK TEST ORD ERABLES Final Result [facility] [place] [employer] [place] [address] * (ABNORMAL) Comprehensive metabolic panel (11/25/2024 5:43 AM PROJECT MANAGEMENT ENGINEER) Sodium 134(L) 135 - 145 mmol/L Potassium, pl 6.8(C) 3.3 - 4.9 mmol/L [facility] Comment:Hemolyzed; Potassium value may be falsely elevated by as much as 0.3-0.5 mmol/L. Suggest redraw and reanalysis. Chloride 107 97 - 110 mmol/L [facility] CO2 24 22 - 32 mmol/L [facility] Anion gap 3 2 - 15 mmol/L [facility] BUN 22 6 - 25 mg/dL [facility] Creatinine 5.64(H) 0.60 - 1.10 mg/dL [facility] Glucose 61(L) 70 - 199 mg/dL [facility] Comment: Interpretive Data Fasting glucose >/= 126 [...] 2022. Calcium 8.8 8.5 - 10.3 mg/dL [facility] Bilirubin, total 0.6 0.1 - 1.2 mg/dL [facility] Protein, pl 8.1 6.5 - 8.5 g/dL [facility] Albumin 2.5(L) 3.5 - 5.0 g/dL [facility] Alk phos 135(H) 40 - 130 Units/L [facility] ALT 17 7 - 45 Units/L [facility] AST 28 10 - 45 Units/L [facility] Comment:Hemolyzed; result ma y be falsely elevated Blood 11/25/2024 5:43 AM PROJECT MANAGEMENT ENGINEER 11/25/2024 6:45 AM PROJECT MANAGEMENT ENGINEER us Delroy Troncoso MD LAB BLOOD ORDERABLES Fi nal Result [facility] Department [place] [address] * X-ray chest 1 view (Portable) (11/25/2024 4:44 AM PROJECT MANAGEMENT ENGINEER) Anatomical Region Laterality Modality Body, Chest N/A Computed Radiogr aphy 11/25/2024 10:4 0 AM PROJECT MANAGEMENT ENGINEER Impressions 11/25/2024 1:52 PM PROJECT MANAGEMENT ENGINEER FINDINGS/IMPRESSION: Left upper extremity vascular stent present. Lungs are clear. No pleural effusion. No pneumothorax. Cardiomediastinal silhouette is within normal limits, stable from prior. Dictated by: Gunnar Wise MD The radiology attending physician has personally reviewed this study, and had reviewed and/or edited this written report and agrees with it. Electronically signed by: Shun Gamboa M.D. Narrative 11/25/2024 1:52 PM PROJECT MANAGEMENT ENGINEER EXAMINATION: XR CHEST 1 VIEW HISTORY: Pleural [...] it. Electronically signed by: Shun Gamboa M.D. us Delroy Torncoso MD IMG XR PROCEDURES Final Result * Hepatitis C antibody Blood (11/28/2023 1:19 PM PROJECT MANAGEMENT ENGINEER) Hep C Ab Nonreactive Nonreactive [facility] Comment:Antibodies to HCV no t detected. Does NOT exclude the possibility of recent exposure to HCV. Current interpretive data was last revised on 22 Blood 11/28/2023 1:19 PM PROJECT MANAGEMENT ENGINEER 11/28/2023 2:18 PM PROJECT MANAGEMENT ENGINEER us Rachael Piña MD LAB MICROBIOLOGY - GENERAL ORDER CHERI Final Result MICHELET Gutierrez [facility] Department [place] [address] * Diagnostic Mammogram (07/06/2021 1:40 PM CDT) [...] Recently Relevant to Health Maintenance Insurance MEDICARE [facility] ACCESS CHOICE TRANSPLANT [employer] [facility] MEDICARE MEDICARE ANTH ACCESS CHOICE MEDICARE [facility] MEDICARE [facility] CHOICE PLUS Advance Directives For more information, please contact: [phone] * Full Code (Latest Code Status on [...] 11:27 AM 06/09/2020 5:41 PM Care Teams Gunner'S Mate M Relationship Specialty Start Date End Date Shun Germain DO [address] [place] [address] [address] [place], [place] [id number] PCP - General Internal Medicine 02/06/25 Edwardo Swain MD [address] [facility] [address] [place] [address] Referring Physician Nephrology 09/04/18 Kerri Rodriguez, FRANCHESCA Circ[employer] Performer 10/05/20 Meri Valdez, RN [address] [facility] [address] [place] [address] Registered Nurse Circus Performer 06/03/21 Vj Oreilly MD [address] [facility] [id number] [place], [place] [id number] Consulting Physician Cardiothoracic Surgery 12/12/24 Miscellaneous, Not In File 12/12/24
--- OUTSIDE RECORDS SUMMARY | 2025-02-21 00:29 | XMS_ITS | Continuity of Care Document ---
Author Organization [facility] Address [address] [place] [address] Phone Care Team Providers Care Professional Fighter Name Role Phone Unavailable Unavailable Unavailable Procedures Procedure Date Office/outpatient visit,est, mod 2005 Supplemental Report Office/outpatient visit,est, mod 2005 Supplemental Report Office/outpatient visit,est, mod 2005 Supplemental Report Office/outpatient visit,est, mod 2005 Supplemental Report Advance Directives Directive Yes / No Effective Date File Name No Information Encounters Encounter Description Practice Location Reason(s) For Visit Diagnoses Date Provider Providers Copied on Encounter Office/outpat ient visit,est, [facility], [address], [id number], tel:[phone] [employer] No Information 6 No Information Office/outpat ient visit,est, [facility], [address], [id number], tel:[phone] No Information 6 No Information Office/outpat ient visit,est, [facility], [address], [id number], tel:[phone] No Information 6 No Information Office/outpat ient visit,est, [facility], [address], [id number], tel:[phone] [facility] No Information [id number] No Information Family History Family Member Type Diagnosis Age At Onset No Information Payers Payer name Insurance type Covered libertarian ID Ayla nguyễn(sJim Higuera [facility] [id number] Social History Type Description Quantity Date Captured Comments Sex Female Smoking Status No Information Chief Complaint And Reason For Visit No Information Reason For Referral Reason For Referral No Information History Of Present Illness Encounter Date Complaint History Of Prese nt Illness No Information Functional Status Date Functional Assessmen t No Information Instructions Date Instruction Additional Infor mation No Information Assessments Type Assessment Date No Information Patient Care Teams Name Effective Dates (start - stop) Status Members No Information
--- OUTSIDE RECORDS SUMMARY | 2025-02-21 00:29 | XMS_ITS ---
Author Organization [facility] al Address [address] [place] [address] Care Team Providers Care National Sales Consultant Name Role Phone Edwardo Swain MD Unavailable [phone] Kerri Rodriguez RN Unavailable [phone] Meri Valdez RN Unavailable [phone] Vj Oreilly MD Unavailable Miscellaneous, Not In File Unavailable Unava ilable Shun Germain DO Primary Care Provider [phone] Dialysis Access Sites Type Status Location Placement Date Removal Da te Hemodialysis AV Access Active AV fistula Active Left Upper Arm - Anterior 01/09/2019 Procedures Procedure Name Priority Date/Time Associated Diagnosis [...] AM CDT EGFR Routine 12/31/2024 10:35 AM HAND SPRAY OPERATOR DIFFERENTIAL AUTO Routine 12/31/2024 10:35 AM HAND SPRAY OPERATOR CBC WITH AUTO DIFFERENTIAL Routine 12/31/2024 10:35 AM HAND SPRAY OPERATOR GLUCOSE, RANDOM (OUTREACH) Routine 12/31/2024 10:35 AM HAND SPRAY OPERATOR COMPREHENSIVE METABOLIC PANEL WITHOUT GLUCOSE (OUTREACH) Routine 12/31/2024 10:35 AM HAND SPRAY OPERATOR EGFR Routine 12/24/2024 1:45 PM HAND SPRAY OPERATOR DIFFERENTIAL AUTO Routine 12/24/2024 1:4 5 PM HAND SPRAY OPERATOR CBC WITH AUTO DIFFERENTIAL Routine 12/24/2024 1:45 PM HAND SPRAY OPERATOR GLUCOSE, RANDOM (OUTREACH) Routine 12/24/2024 1:45 PM HAND SPRAY OPERATOR COMPREHENSIVE METABOLIC PANEL WITHOUT GLUCOSE (OUTREACH) Routine 12/24/2024 1:45 PM HAND SPRAY OPERATOR EGFR Routine 12/17/2024 11:00 AM HAND SPRAY OPERATOR DIFFERENTIAL AUTO Routine 12/17/2024 11:00 AM HAND SPRAY OPERATOR CBC WITH AUTO DIFFERENTIAL Routine 12/17/2024 11:00 AM HAND SPRAY OPERATOR GLUCOSE, RANDOM (OUTREACH) Routine 12/17/2024 11:00 AM HAND SPRAY OPERATOR COMPREHENSIVE METABOLIC PANEL WITHOUT GLUCOSE (OUTREACH) Routine 12/17/2024 11:00 AM HAND SPRAY OPERATOR HEPATIC FUNCTION PANEL Routine 12/11/2024 9:51 PM HAND SPRAY OPERATOR DIFFERENTIAL AUTO Routine 12/11/2024 9:5 1 PM HAND SPRAY OPERATOR EGFR Routine 12/11/2024 9:51 PM HAND SPRAY OPERATOR PHOSPHORUS Routine 12/11/2024 9:51 PM HAND SPRAY OPERATOR MAGNESIUM Routine 12/11/2024 9:51 PM HAND SPRAY OPERATOR CBC WITHOUT DIFFERENTIAL Routine 12/11/2024 9:51 PM HAND SPRAY OPERATOR BASIC METABOLIC PANEL Routine 12/11/2024 9:51 PM HAND SPRAY OPERATOR CBC WITHOUT DIFFERENTIAL STAT 12/10/2024 9:24 PM HAND SPRAY OPERATOR TYPE AND SCREEN Timed 12/10/2024 8:34 PM HAND SPRAY OPERATOR EGFR Routine 12/10/2024 8:31 PM HAND SPRAY OPERATOR PHOSPHORUS Routine 12/10/2024 8:31 PM HAND SPRAY OPERATOR MAGNESIUM Routine 12/10/2024 8:31 PM HAND SPRAY OPERATOR CBC WITHOUT DIFFERENTIAL Routine 12/10/2024 8:31 PM HAND SPRAY OPERATOR BASIC METABOLIC PANEL Routine 12/10/2024 8:31 PM HAND SPRAY OPERATOR INFECTION PREVENTION LEIDY AURIS PCR, SURVEILLANCE Routine 12/10/2024 6:41 PM HAND SPRAY OPERATOR HEMODIALYSIS Routine 12/10/2024 11:27 AM HAND SPRAY OPERATOR CBC WITHOUT DIFFERENTIAL Routine 12/09/2024 9:36 PM HAND SPRAY OPERATOR CREATINE KINASE (CK), TOTAL Routine 12/09/2024 9:28 PM HAND SPRAY OPERATOR EGFR Routine 12/09/2024 9:28 PM HAND SPRAY OPERATOR PHOSPHORUS Routine 12/09/2024 9:28 PM HAND SPRAY OPERATOR MAGNESIUM Routine 12/09/2024 9:28 PM HAND SPRAY OPERATOR BASIC METABOLIC PANEL Routine 12/09/2024 9:28 PM HAND SPRAY OPERATOR CENTRAL LINE PLACEMENT > 5 YEARS IP Routine 12/09/2024 3:57 PM HAND SPRAY OPERATOR EGFR Routine 12/08/2024 9:08 PM HAND SPRAY OPERATOR PHOSPHORUS Routine 12/08/2024 9:08 PM HAND SPRAY OPERATOR MAGNESIUM Routine 12/08/2024 9:08 PM HAND SPRAY OPERATOR CBC WITHOUT DIFFERENTIAL Routine 12/08/2024 9:08 PM HAND SPRAY OPERATOR BASIC METABOLIC PANEL Routine 12/08/2024 9:08 PM HAND SPRAY OPERATOR CBC WITHOUT DIFFERENTIAL STAT 12/08/2024 12:51 PM HAND SPRAY OPERATOR XR CHEST 1 VIEW ED Urgent/IP Urgent 12/08/2024 9:10 AM HAND SPRAY OPERATOR CT CHEST WO CONTRAST ED Urgent/IP Urgent 12/08/2024 8:57 AM HAND SPRAY OPERATOR TRANSFUSE RED BLOOD CELLS Timed 12/08/2024 5:45 AM HAND SPRAY OPERATOR PREPARE RBC Timed 12/08/2024 5:06 AM HAND SPRAY OPERATOR TYPE AND SCREEN Routine 12/08/2024 3:40 AM HAND SPRAY OPERATOR CBC WITHOUT DIFFERENTIAL Routine 12/08/2024 3:40 AM HAND SPRAY OPERATOR HEMODIALYSIS Routine 12/08/2024 12:31 AM HAND SPRAY OPERATOR EGFR Routine 12/07/2024 8:59 PM HAND SPRAY OPERATOR PHOSPHORUS Routine 12/07/2024 8:59 PM HAND SPRAY OPERATOR MAGNESIUM Routine 12/07/2024 8:59 PM HAND SPRAY OPERATOR CBC WITHOUT DIFFERENTIAL Routine 12/07/2024 8:59 PM HAND SPRAY OPERATOR BASIC METABOLIC PANEL Routine 12/07/2024 8:59 PM HAND SPRAY OPERATOR EGFR Routine 12/06/2024 9:25 PM HAND SPRAY OPERATOR PHOSPHORUS Routine 12/06/2024 9:25 PM HAND SPRAY OPERATOR MAGNESIUM Routine 12/06/2024 9:25 PM HAND SPRAY OPERATOR CBC WITHOUT DIFFERENTIAL Routine 12/06/2024 9:25 PM HAND SPRAY OPERATOR BASIC METABOLIC PANEL Routine 12/06/2024 9:25 PM HAND SPRAY OPERATOR TRANSTHORACIC ECHO (TTE) COMPLETE W DOPPLER/CF W CONTRAST Routine 12/06/2024 4:48 PM HAND SPRAY OPERATOR HEMODIALYSIS Routine 12/06/2024 1:43 PM HAND SPRAY OPERATOR XR CHEST PA LATERAL 2 VIEWS Timed 12/06/2024 12:28 PM HAND SPRAY OPERATOR POCT GLUCOSE DEVICE Routine 12/06/2024 7 :58 AM HAND SPRAY OPERATOR POCT GLUCOSE DEVICE Routine 12/05/2024 9 :03 PM HAND SPRAY OPERATOR HEPATIC FUNCTION PANEL Routine 12/05/2024 7:45 PM HAND SPRAY OPERATOR CBC WITH AUTO DIFFERENTIAL Routine 12/05/2024 7:45 PM HAND SPRAY OPERATOR DIFFERENTIAL AUTO Routine 12/05/2024 7:4 5 PM HAND SPRAY OPERATOR EGFR Routine 12/05/2024 7:45 PM HAND SPRAY OPERATOR PHOSPHORUS Routine 12/05/2024 7:45 PM HAND SPRAY OPERATOR MAGNESIUM Routine 12/05/2024 7:45 PM HAND SPRAY OPERATOR CBC WITHOUT DIFFERENTIAL Routine 12/05/2024 7:45 PM HAND SPRAY OPERATOR BASIC METABOLIC PANEL Routine 12/05/2024 7:45 PM HAND SPRAY OPERATOR POCT GLUCOSE DEVICE Routine 12/05/2024 7 :39 PM HAND SPRAY OPERATOR POCT GLUCOSE DEVICE Routine 12/05/2024 4 :43 PM HAND SPRAY OPERATOR POTASSIUM, WHOLE BLOOD STAT 12/05/2024 11:49 AM HAND SPRAY OPERATOR POCT GLUCOSE DEVICE Routine 12/05/2024 11:48 AM HAND SPRAY OPERATOR CRITICAL CARE Routine 12/05/2024 11:39 AM HAND SPRAY OPERATOR Subacute bacterial endocarditis [I33.0] POCT GLUCOSE DEVICE Routine 12/05/2024 7 :39 AM HAND SPRAY OPERATOR POTASSIUM, WHOLE BLOOD STAT 12/05/2024 6:36 AM HAND SPRAY OPERATOR TACROLIMUS LEVEL, TROUGH STAT 12/05/2024 6:36 AM HAND SPRAY OPERATOR POCT GLUCOSE DEVICE Routine 12/05/2024 4 :24 AM HAND SPRAY OPERATOR POCT GLUCOSE DEVICE Routine 12/05/2024 1 :25 AM HAND SPRAY OPERATOR EGFR Routine 12/05/2024 1:25 AM HAND SPRAY OPERATOR POTASSIUM, WHOLE BLOOD STAT 12/05/2024 1:25 AM HAND SPRAY OPERATOR PHOSPHORUS Routine 12/05/2024 1:25 AM HAND SPRAY OPERATOR MAGNESIUM Routine 12/05/2024 1:25 AM HAND SPRAY OPERATOR BASIC METABOLIC PANEL Routine 12/05/2024 1:25 AM HAND SPRAY OPERATOR CBC WITHOUT DIFFERENTIAL Routine 12/05/2024 1:25 AM HAND SPRAY OPERATOR TYPE AND SCREEN Timed 12/05/2024 1:25 AM HAND SPRAY OPERATOR POCT GLUCOSE DEVICE Routine 12/04/2024 8 :24 PM HAND SPRAY OPERATOR XR CHEST 1 VIEW IP Routine 12/04/2024 7:41 PM HAND SPRAY OPERATOR POCT GLUCOSE DEVICE Routine 12/04/2024 7 :21 PM HAND SPRAY OPERATOR CRITICAL CARE Routine 12/04/2024 6:30 PM HAND SPRAY OPERATOR Severe mitral regurgitation POCT GLUCOSE DEVICE Routine 12/04/2024 6 :13 PM HAND SPRAY OPERATOR POTASSIUM, WHOLE BLOOD STAT 12/04/2024 6:13 PM HAND SPRAY OPERATOR INFECTION PREVENTION LEIDY AURIS PCR, SURVEILLANCE Routine 12/04/2024 5:39 PM HAND SPRAY OPERATOR HEMODIALYSIS Routine 12/04/2024 5:08 PM HAND SPRAY OPERATOR POCT GLUCOSE DEVICE Routine 12/04/2024 3 :47 PM HAND SPRAY OPERATOR TRIGLYCERIDES STAT 12/04/2024 2:15 PM HAND SPRAY OPERATOR EGFR STAT 12/04/2024 2:15 PM HAND SPRAY OPERATOR OXYHEMOGLOBIN, CENTRAL VENOUS STAT 12/04/2024 2:15 PM HAND SPRAY OPERATOR APTT STAT 12/04/2024 2:15 PM HAND SPRAY OPERATOR PROTIME-INR STAT 12/04/2024 2:15 PM HAND SPRAY OPERATOR CBC WITHOUT DIFFERENTIAL STAT 12/04/2024 2:15 PM HAND SPRAY OPERATOR MAGNESIUM STAT 12/04/2024 2:15 PM HAND SPRAY OPERATOR BASIC METABOLIC PANEL STAT 12/04/2024 2:15 PM HAND SPRAY OPERATOR TYPE AND SCREEN Timed 12/04/2024 2:15 PM HAND SPRAY OPERATOR POC BLOOD GAS AND CHEMISTRIES, ARTERIAL Routine 12/04/2024 2:10 PM HAND SPRAY OPERATOR CRITICAL CARE Routine 12/04/2024 2:09 PM HAND SPRAY OPERATOR XR CHEST 1 VIEW ED Urgent/IP Urgent 12/04/2024 2:05 PM HAND SPRAY OPERATOR POCT PLATELET COUNT AND HEMATOCRIT Routine 12/04/2024 11:53 AM HAND SPRAY OPERATOR POCT PARTIAL THROMBOPLASTIN TIME (PTT) Routine 12/04/2024 11:52 AM HAND SPRAY OPERATOR POCT PROTHROMBIN TIME Routine 12/04/2024 11:52 AM HAND SPRAY OPERATOR POCT HEPARIN/ACT CPB Routine 12/04/2024 11:51 AM HAND SPRAY OPERATOR POC BLOOD GAS AND CHEMISTRIES, ARTERIAL Routine 12/04/2024 11:48 AM HAND SPRAY OPERATOR POCT HEPARIN/ACT CPB Routine 12/04/2024 11:29 AM HAND SPRAY OPERATOR POC BLOOD GAS AND CHEMISTRIES, ARTERIAL Routine 12/04/2024 11:26 AM HAND SPRAY OPERATOR POCT HEPARIN/ACT CPB Routine 12/04/2024 10:59 AM HAND SPRAY OPERATOR POC BLOOD GAS AND CHEMISTRIES, ARTERIAL Routine 12/04/2024 10:55 AM HAND SPRAY OPERATOR POCT HEPARIN/ACT CPB Routine 12/04/2024 10:24 AM HAND SPRAY OPERATOR POC BLOOD GAS AND CHEMISTRIES, ARTERIAL Routine 12/04/2024 10:20 AM HAND SPRAY OPERATOR POCT HEPARIN/ACT CPB Routine 12/04/2024 9:49 AM HAND SPRAY OPERATOR TRANSFUSE RED BLOOD CELLS Timed 12/04/2024 9:41 AM HAND SPRAY OPERATOR TRANSFUSE RED BLOOD CELLS Timed 12/04/2024 9:41 AM HAND SPRAY OPERATOR SURGICAL PATHOLOGY Routine 12/04/2024 9: 37 AM HAND SPRAY OPERATOR Severe mitral regurgitation GA AN PROCEDURE PLACEHOLDER Routine 12/04/2024 9:34 AM HAND SPRAY OPERATOR ANESTHESIA CENTRAL VENOUS LINE PLACEMENT Routine 12/04/2024 9:18 AM HAND SPRAY OPERATOR ANESTHESIA CENTRAL VENOUS LINE PLACEMENT Routine 12/04/2024 9:17 AM HAND SPRAY OPERATOR ANESTHESIA ARTERIAL LINE PLACEMENT Routine 12/04/2024 9:17 AM HAND SPRAY OPERATOR ANESTHESIA INTUBATION Routine 12/04/2024 9:16 AM HAND SPRAY OPERATOR POCT HEPARIN DOSE RESPONSE, CPB Routine 12/04/2024 9:13 AM HAND SPRAY OPERATOR POC BLOOD GAS AND CHEMISTRIES, ARTERIAL Routine 12/04/2024 9:08 AM HAND SPRAY OPERATOR REPAIR MITRAL VALVE 12/04/2024 8 :04 AM HAND SPRAY OPERATOR Severe mitral regurgitation Case Notes 11/29@1612- Josse Mireles via phone call reschedule to 12/06/24- [facility] ADD-ON FOR OR Routine 12/04/2024 7:5 9 AM HAND SPRAY OPERATOR POC BLOOD GAS AND CHEMISTRIES, ARTERIAL Routine 12/04/2024 6:24 AM HAND SPRAY OPERATOR PREPARE RBC Timed 12/04/2024 5:52 AM HAND SPRAY OPERATOR EGFR Routine 12/03/2024 10:17 PM HAND SPRAY OPERATOR PHOSPHORUS Routine 12/03/2024 10:17 PM HAND SPRAY OPERATOR MAGNESIUM Routine 12/03/2024 10:17 PM HAND SPRAY OPERATOR BASIC METABOLIC PANEL Routine 12/03/2024 10:17 PM HAND SPRAY OPERATOR CBC WITHOUT DIFFERENTIAL Routine 12/03/2024 10:17 PM HAND SPRAY OPERATOR URINALYSIS, MICROSCOPIC ONLY STAT 12/03/2024 9:17 PM HAND SPRAY OPERATOR URINALYSIS AND REFLEX TO MICROSCOPIC AND CULTURE STAT 12/03/2024 9:17 PM HAND SPRAY OPERATOR HEMODIALYSIS Routine 12/03/2024 6:55 AM HAND SPRAY OPERATOR EGFR Routine 12/02/2024 9:40 PM HAND SPRAY OPERATOR CREATINE KINASE (CK), TOTAL Timed 12/02/2024 9:40 PM HAND SPRAY OPERATOR TYPE AND SCREEN Timed 12/02/2024 9:40 PM HAND SPRAY OPERATOR PHOSPHORUS Routine 12/02/2024 9:40 PM HAND SPRAY OPERATOR MAGNESIUM Routine 12/02/2024 9:40 PM HAND SPRAY OPERATOR BASIC METABOLIC PANEL Routine 12/02/2024 9:40 PM HAND SPRAY OPERATOR CBC WITHOUT DIFFERENTIAL Routine 12/02/2024 9:40 PM HAND SPRAY OPERATOR LEFT HEART CATHETERIZATION (LHC) Routine 12/02/2024 1:58 PM HAND SPRAY OPERATOR Severe mitral regurgitation BLOOD CULTURE Routine 12/02/2024 8:36 AM HAND SPRAY OPERATOR EGFR Routine 12/01/2024 10:28 PM HAND SPRAY OPERATOR PHOSPHORUS Routine 12/01/2024 10:28 PM HAND SPRAY OPERATOR MAGNESIUM Routine 12/01/2024 10:28 PM HAND SPRAY OPERATOR BASIC METABOLIC PANEL Routine 12/01/2024 10:28 PM HAND SPRAY OPERATOR CBC WITHOUT DIFFERENTIAL Routine 12/01/2024 10:28 PM HAND SPRAY OPERATOR INFECTION PREVENTION LEIDY AURIS PCR, SURVEILLANCE Routine 12/01/2024 10:28 PM HAND SPRAY OPERATOR HEMODIALYSIS Routine 12/01/2024 12:31 AM HAND SPRAY OPERATOR EGFR Routine 11/30/2024 10:05 PM HAND SPRAY OPERATOR PHOSPHORUS Routine 11/30/2024 10:05 PM HAND SPRAY OPERATOR MAGNESIUM Routine 11/30/2024 10:05 PM HAND SPRAY OPERATOR BASIC METABOLIC PANEL Routine 11/30/2024 10:05 PM HAND SPRAY OPERATOR CBC WITHOUT DIFFERENTIAL Routine 11/30/2024 10:05 PM HAND SPRAY OPERATOR EGFR Routine 11/29/2024 10:10 PM HAND SPRAY OPERATOR TYPE AND SCREEN Timed 11/29/2024 10:10 PM HAND SPRAY OPERATOR PHOSPHORUS Routine 11/29/2024 10:10 PM HAND SPRAY OPERATOR MAGNESIUM Routine 11/29/2024 10:10 PM HAND SPRAY OPERATOR BASIC METABOLIC PANEL Routine 11/29/2024 10:10 PM HAND SPRAY OPERATOR CBC WITHOUT DIFFERENTIAL Routine 11/29/2024 10:10 PM HAND SPRAY OPERATOR EGFR Routine 11/28/2024 10:29 PM HAND SPRAY OPERATOR PHOSPHORUS Routine 11/28/2024 10:29 PM HAND SPRAY OPERATOR MAGNESIUM Routine 11/28/2024 10:29 PM HAND SPRAY OPERATOR BASIC METABOLIC PANEL Routine 11/28/2024 10:29 PM HAND SPRAY OPERATOR CBC WITHOUT DIFFERENTIAL Routine 11/28/2024 10:29 PM HAND SPRAY OPERATOR BLOOD CULTURE Routine 11/28/2024 10:29 PM HAND SPRAY OPERATOR GENERAL Routine 11/28/2024 12:40 PM HAND SPRAY OPERATOR Allergy to ampicillin HEMODIALYSIS Routine 11/28/2024 11:44 AM HAND SPRAY OPERATOR ECG 12-LEAD Routine 11/28/2024 8:45 AM HAND SPRAY OPERATOR EGFR Routine 11/27/2024 9:57 PM HAND SPRAY OPERATOR PHOSPHORUS Routine 11/27/2024 9:57 PM HAND SPRAY OPERATOR MAGNESIUM Routine 11/27/2024 9:57 PM HAND SPRAY OPERATOR BASIC METABOLIC PANEL Routine 11/27/2024 9:57 PM HAND SPRAY OPERATOR CBC WITHOUT DIFFERENTIAL Routine 11/27/2024 9:57 PM HAND SPRAY OPERATOR BLOOD CULTURE Routine 11/27/2024 9:57 PM HAND SPRAY OPERATOR BLOOD CULTURE Routine 11/27/2024 2:02 PM HAND SPRAY OPERATOR TRANSESOPHAGEAL ECHO (KALEN) W DOPPLER/CF WO CONTRAST Routine 11/27/2024 12:37 PM HAND SPRAY OPERATOR POC BLOOD GAS AND CHEMISTRIES, ARTERIAL Routine 11/27/2024 11:02 AM HAND SPRAY OPERATOR MRI BRAIN WO CONTRAST IP Routine 11/27/2024 2:47 AM HAND SPRAY OPERATOR EGFR Routine 11/26/2024 11:09 PM HAND SPRAY OPERATOR TYPE AND SCREEN Timed 11/26/2024 11:09 PM HAND SPRAY OPERATOR PHOSPHORUS Routine 11/26/2024 11:09 PM HAND SPRAY OPERATOR MAGNESIUM Routine 11/26/2024 11:09 PM HAND SPRAY OPERATOR BASIC METABOLIC PANEL Routine 11/26/2024 11:09 PM HAND SPRAY OPERATOR CBC WITHOUT DIFFERENTIAL Routine 11/26/2024 11:09 PM HAND SPRAY OPERATOR HEMODIALYSIS Routine 11/26/2024 11:23 AM HAND SPRAY OPERATOR POTASSIUM LEVEL Timed 11/26/2024 8:26 AM HAND SPRAY OPERATOR POTASSIUM LEVEL Timed 11/26/2024 5:10 AM HAND SPRAY OPERATOR TACROLIMUS LEVEL, TROUGH Routine 11/26/2024 5:10 AM HAND SPRAY OPERATOR CTA CHEST ABDOMEN PELVIS IP Routine 11/26/2024 1:56 AM HAND SPRAY OPERATOR CT HEAD WO CONTRAST IP Routine 11/26/2024 1 :56 AM HAND SPRAY OPERATOR EGFR Routine 11/25/2024 11:33 PM HAND SPRAY OPERATOR CREATINE KINASE (CK), TOTAL Timed 11/25/2024 11:33 PM HAND SPRAY OPERATOR PHOSPHORUS Routine 11/25/2024 11:33 PM HAND SPRAY OPERATOR MAGNESIUM Routine 11/25/2024 11:33 PM HAND SPRAY OPERATOR BASIC METABOLIC PANEL Routine 11/25/2024 11:33 PM HAND SPRAY OPERATOR CBC WITHOUT DIFFERENTIAL Routine 11/25/2024 11:33 PM HAND SPRAY OPERATOR US TRANSFER OF OUTSIDE FILMS Routine 11/25/2024 3:55 PM HAND SPRAY OPERATOR HEPATITIS B SURFACE ANTIGEN STAT 11/25/2024 3:24 PM HAND SPRAY OPERATOR TACROLIMUS LEVEL, TROUGH STAT 11/25/2024 9:57 AM HAND SPRAY OPERATOR INFECTION PREVENTION LEIDY AURIS PCR, SURVEILLANCE Routine 11/25/2024 9:57 AM HAND SPRAY OPERATOR HEMODIALYSIS Routine 11/25/2024 8:42 AM HAND SPRAY OPERATOR CRITICAL RESULT CALLBACK CHEMISTRY STAT 11/25/2024 7:47 AM HAND SPRAY OPERATOR POTASSIUM, WHOLE BLOOD STAT 11/25/2024 7:47 AM HAND SPRAY OPERATOR POCT GLUCOSE DEVICE Routine 11/25/2024 7 :37 AM HAND SPRAY OPERATOR EGFR Routine 11/25/2024 5:43 AM HAND SPRAY OPERATOR CRITICAL RESULT CALLBACK CHEMISTRY Routine 11/25/2024 5:43 AM HAND SPRAY OPERATOR APTT Routine 11/25/2024 5:43 AM HAND SPRAY OPERATOR PROTIME-INR Routine 11/25/2024 5:43 AM HAND SPRAY OPERATOR COMPREHENSIVE METABOLIC PANEL Routine 11/25/2024 5:43 AM HAND SPRAY OPERATOR TYPE AND SCREEN Timed 11/25/2024 5:43 AM HAND SPRAY OPERATOR CBC WITHOUT DIFFERENTIAL Routine 11/25/2024 5:43 AM HAND SPRAY OPERATOR BLOOD CULTURE Routine 11/25/2024 5:43 AM HAND SPRAY OPERATOR BLOOD CULTURE Routine 11/25/2024 5:43 AM HAND SPRAY OPERATOR XR CHEST 1 VIEW IP Routine 11/25/2024 4:44 AM HAND SPRAY OPERATOR HEPATITIS C ANTIBODY Routine 11/28/2023 1:19 PM HAND SPRAY OPERATOR Stage 5 chronic kidney disease on chronic dialysis (HCC) DIAGNOSTIC MAMMOGRAM Schedule Routine, Read Routine (OP Routine) 07/06/2021 1:40 PM CDT from Last 3 Months or Most Recently Relevant to Health Maintenance Allergies Active Allergy Reactions Criticality Noted Date [...] ed(Alterna te therapy) 0.9 % sodium chloride ([facility] sodium chloride 0.9%) injectionIndic ations:Line care Administer [...] Katelynn (mother) Specialty: [facility] Labs: [facility] in [place] [phone] q-bi-weekly, FK, q-monthly, BK, UPE; q3-Routine. HH: Did not have a preference. List was provided. Problem Noted Date Diagnosed Date Encounter for screening exam ination for sexually transmitted disease 12/31/2024 Bacterial endocarditis 12/31/2024 Bacteremia due to Enterococcus 12/31/2024 Assessment & Plan (12/31/2024 8:52 AM HAND SPRAY OPERATOR): KALEN 11/27/24 showed anterior MV leaflet vegetation [...] 11/29/2024 Assessment & Plan (12/07/2024 1:04 PM HAND SPRAY OPERATOR): S/p radical debridement and reconstruction mitral valve [...] >50%. Assessment & Plan (12/01/2024 11:53 AM HAND SPRAY OPERATOR): Pre-OP MV repair/replacement Dr. Troncoso to discuss with Dr. Oreilly and determine an OR plan Assessment & Plan (11/30/2024 11:12 AM HAND SPRAY OPERATOR): Pre-OP MV repair/replacement Dr. Troncoso to discuss with Dr. Oreilly and determine an OR plan Moderate protein-calorie malnutrition 11/27/2024 Assessment & Plan (12/08/2024 1:26 PM HAND SPRAY OPERATOR): BMI 22.66 Daily weights Encourage PO intake Seen by pe teacher Tisha plant based caloric supplements Vegan/renal diet Assessment & Plan (12/01/2024 11:52 AM HAND SPRAY OPERATOR): Daily weights Encourage PO intake Seen by pe teacher Added supplements Vegan/renal diet Assessment & Plan (11/30/2024 11:11 AM HAND SPRAY OPERATOR): Daily weights Encourage PO intake Seen by pe teacher Added supplements Vegan/renal diet Allergy to ampicillin 11/26/2024 Assessment & Plan (12/02/2024 2:30 PM HAND SPRAY OPERATOR): S/p Antibiotic dose challenge-no reaction Continue Ampicillin 2 Gm q 12 Assessment & Plan (12/01/2024 11:52 AM HAND SPRAY OPERATOR): S/p Antibiotic dose challenge-no reaction Continue Ampicillin 2 Gm q 12 Assessment & Plan (11/29/2024 1:21 PM HAND SPRAY OPERATOR): S/p Antibiotic dose challenge-no reaction Continue Ampicillin 2 Gm q 12 Assessment & Plan (11/27/2024 1:29 PM HAND SPRAY OPERATOR): Consult Allergy Team to perform a abx challenge Waiting to hear from ID on appropriate dosing Assessment & Plan (11/26/2024 3:04 PM HAND SPRAY OPERATOR): Consult Allergy Team to perform a abx challenge Waiting to hear from ID on appropriate dosing Endocarditis 11/25/2024 Assessment & Plan (12/09/2024 11:42 AM HAND SPRAY OPERATOR): - admitted from OSH for complains of [...] today Assessment & Plan (12/01/2024 11:52 AM HAND SPRAY OPERATOR): - admitted from OSH for complains of [...] function. Assessment & Plan (11/29/2024 1:19 PM HAND SPRAY OPERATOR): - admitted from OSH for complains of [...] function. Assessment & Plan (11/27/2024 1:29 PM HAND SPRAY OPERATOR): - admitted from OSH for complains of [...] date Assessment & Plan (11/26/2024 3:06 PM HAND SPRAY OPERATOR): - admitted from OSH for complains of [...] 11/25/2024 Assessment & Plan (12/02/2024 2:31 PM HAND SPRAY OPERATOR): - history of hyperlipidemia - continue Atorvastatin - low fat, low cholesterol diet Assessment & Plan (12/01/2024 11:52 AM HAND SPRAY OPERATOR): - history of hyperlipidemia - continue statin - low fat, low cholesterol diet Assessment & Plan (11/30/2024 11:13 AM HAND SPRAY OPERATOR): - history of hyperlipidemia - continue statin - low fat, low cholesterol diet Assessment & Plan (11/27/2024 1:33 PM HAND SPRAY OPERATOR): - history of hyperlipidemia - continue statin - low fat, low cholesterol diet Assessment & Plan (11/25/2024 4:23 PM HAND SPRAY OPERATOR): - history of hyperlipidemia - continue statin - low fat, low cholesterol diet Failed kidney transplant 11/25/2024 Assessment & Plan (12/06/2024 2:39 PM HAND SPRAY OPERATOR): - Patient underwent kidney transplant last 2018 - Transplant failed on 2020, resumed HD (MWF) - Right upper arm AV fistula - continue Prednisone - continue Tacrolimus 1 mg BID - check Tacrolimus level q am - Kidney transplant team following w/ HD services Monitor daily BMP Assessment & Plan (12/01/2024 11:52 AM HAND SPRAY OPERATOR): - Patient underwent kidney transplant last 2018 - Transplant failed on 2020 and patient back to HD (MWF) - Right upper arm AV fistula - continue Prednisone - continue Tacrolimus 1 mg BID with daily Tacrolimus level - Kidney transplant following Assessment & Plan (11/29/2024 1:11 PM HAND SPRAY OPERATOR): - Patient underwent kidney transplant last 2018 - Transplant failed on 2020 and patient back to HD (MWF) - Right upper arm AV fistula - continue Prednisone - continue Tacrolimus 1 mg BID with daily Tacrolimus level - Kidney transplant following Assessment & Plan (11/27/2024 1:33 PM HAND SPRAY OPERATOR): - Patient underwent kidney transplant last 2018 - Transplant failed on 2020 and patient back to HD (MWF) - Right upper arm AV fistula - continue prednisone - continue tacrolimus 1 mg BID with daily tacrolimus level - Kidney transplant following Assessment & Plan (11/25/2024 4:30 PM HAND SPRAY OPERATOR): - Patient underwent kidney transplant last 2018 [...] 2:16 PM CDT): No symptoms today, s/p WAVE SOLDERING MACHINE OPERATOR therapy. Assessment & Plan (01/29/2020 11:22 AM [...] Assessment & Plan (01/26/2020 12:38 PM CDT): / UCx +E.coli. 01/20 BCx NGTD. [...] 01/20/2020 Assessment & Plan (12/08/2024 1:29 PM HAND SPRAY OPERATOR): Combined anemia of chronic disease and ABLA [...] (12/10/2019): Added automatically from request for surgery [id number] Assessment & Plan (01/29/2020 11:21 AM CDT): [...] (12/10/2019): Added automatically from request for surgery [id number] Assessment & Plan (04/02/2020 3:01 PM CDT): [...] (02/18/2019): Added automatically from request for surgery [id number] ESRD (end stage renal disease) 12/31/2018 Overview (12/31/2018): Added automatically from request for surgery [id number] Assessment & Plan (12/06/2024 2:39 PM HAND SPRAY OPERATOR): - History of ESRD secondary to SLE - also failed kidney transplant, on the list now for another kidney, continue Tacrolimus - continue HD MWF - Nephrology following - Monitor daily BMP Assessment & Plan (12/01/2024 11:52 AM HAND SPRAY OPERATOR): - History of ESRD secondary to SLE - continue HD MWF - Nephrology following - Monitor daily BMP Assessment & Plan (11/29/2024 1:12 PM HAND SPRAY OPERATOR): - History of ESRD secondary to SLE - continue HD MWF - Nephrology following - Monitor daily BMP Assessment & Plan (11/27/2024 1:33 PM HAND SPRAY OPERATOR): - History of ESRD secondary to SLE - continue HD MWF - Renal following Assessment & Plan (11/25/2024 4:26 PM HAND SPRAY OPERATOR): - History of ESRD secondary to SLE - continue HD MWF - Renal following Renal osteodystrophy 10/07/2018 Stage 5 chronic kidney disease 09/11/2017 Overview (02/14/2020): Overview: Office Associate = Dr. 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): - VS q 4h - continue Coreg 25 mg po bid - continue Doxazosin and Nifedipine - low sodium diet - hold Diltiazem for low HR Assessment & Plan (11/29/2024 1:10 PM HAND SPRAY OPERATOR): - VS q 4h - continue Coreg 25 mg po bid - continue Doxazosin and Nifedipine - low sodium diet - hold Diltiazem for low HR Assessment & Plan (11/27/2024 1:33 PM HAND SPRAY OPERATOR): - continue carvedilol daily - continue doxazosin and nifedipine - low sodium diet - hold diltiazem for low HR Assessment & Plan (11/25/2024 4:25 PM HAND SPRAY OPERATOR): - continue carvedilol daily - continue doxazosin and nifedipine - low sodium diet - hold diltiazem for low HR Systemic lupus erythematosus , organ or system involvement unspecified 12/16/2012 Social History Tobacco Use Types Packs/Day Years [...] often do you attend chur ch or congregational services? More than 4 times per year 10/06/2021 Do you belong to any clubs o r organizations such as judaism groups, unions, fraternal or athletic groups, or [...] on file Legal Sex Female 2:49 AM HAND SPRAY OPERATOR Gender Identity Female 02/26/2020 11:09 AM CDT [...] Mass Index 22.5 02/06/2025 1:14 PM CDT Results * XR Chest Pa Lateral 2 [...] PM CDT Narrative 01/17/2025 7:01 AM CDT [facility] [place] [address] Transthoracic Echocardiographic Report Patient Name: QUIN MILLER J : 1970 (54y 5m) Gender: F Study Date: 01/16/2025 04:38:36 PM Ht(Inch): 63 Wt(Lb): 128.97 BSA: 1.61 Healthcare Facility Administrator: Azucena Han RDCS Location: [facility] Order Provider: JENNIFER MONTANEZ Heart Rate: 72 [...] Procedure Note Christo Ruiz MD - 01/17/2025 [facility] [place] [address] Transthoracic Echocardiographic Report Patient Name: QUIN MILLER J : 1970 (54y 5m) Gender: F Study Date: 01/16/2025 04:38:36 PM Ht(Inch): 63 Wt(Lb): 128.97 BSA: 1.61 Healthcare Facility Administrator: Azucena Han RDCS Location: [facility] Order Provider:JENNIFER MONTANEZ Heart Rate: 72 BMI: [...] cm LA Length 2C 5.03 cm MV [id number] msec [ 20.00 - 100.00 ] LA [...] Glucose, random (Outreach) (01/14/2025 9:30 AM CDT) Glucose 157 70 - 199 mg/dL Comment: [...] MD LAB BLOOD ORDERABLES Final Resu lt [facility] [address] Department [place] [address] * (ABNORMAL) eGFR (01/14/2025 9:30 AM CDT) [...] 9:30 AM CDT 01/14/2025 2:11 PM CDT us Irma Arias MD LAB BLOOD ORDERABLES Final Resu lt [facility] [address] Department [place] [address] * Differential, auto (01/14/2025 9:30 AM CDT) Neutrophil abs 2.4 1.5 - 6.5 K/cumm Imm gran abs 0.0 0.0 - 0.1 K/cumm [facility] Lymphocyte abs 0.9 0.8 - 3.3 K/cumm [facility] Monocyte abs 0.5 0.2 - 0.8 K/cumm [facility] Eosinophil abs 0.0 0.0 - 0.5 K/cumm [facility] Basophil abs 0.0 0.0 - 0.1 K/cumm [facility] Neutrophil pct 61.7 % [facility] Comment: Interpretive Data Percent cell count reference ranges are not reported, since discordance with absolute values may lead to misinterpretation of CBC data. Current Interpretive Data was last revised on 2018. Imm gran pct 0.5 % [facility] Comment: Interpretive Data Percent cell count reference ranges are not reported, since discordance with absolute values may lead to misinterpretation of CBC data. Current Interpretive Data was last revised on 2018. Lymphocyte pct 24.0 % [facility] Comment: Interpretive Data Percent cell count reference ranges are not reported, since discordance with absolute values may lead to misinterpretation of CBC data. Current Interpretive Data was last revised on 2018. Monocyte pct 12.2 % [facility] Comment: Interpretive Data Percent cell count reference ranges are not reported, since discordance with absolute values may lead to misinterpretation of CBC data. Current Interpretive Data was last revised on 2018. Eosinophil pct 0.8 % [facility] Comment: Interpretive Data Percent cell count reference ranges are not reported, since discordance with absolute values may lead to misinterpretation of CBC data. Current Interpretive Data was last revised on 2018. Basophil pct 0.8 % [facility] Comment: Interpretive Data Percent cell count reference ranges are not reported, since discordance with absolute values may lead to misinterpretation of CBC data. Current Interpretive Data was last revised on 2018. Blood 01/14/2025 9:30 AM CDT 01/14/2025 2:04 PM CDT us Irma Arias MD LAB BLOOD ORDERABLES Final Resu lt [facility] [address] Department [place] [address] * (ABNORMAL) Comprehensive metabolic panel, without glucose (Outreach) (01/14/2025 9:30 AM CDT) Sodium 142 135 - 145 mmol/L Potassium, pl 4.5 3.3 - 4.9 mmol/L [facility] Chloride 102 97 - 110 mmol/L [facility] CO2 26 22 - 32 mmol/L [facility] Anion gap 14 2 - 15 mmol/L [facility] BUN 25 6 - 25 mg/dL [facility] Creatinine 3.63(H) 0.60 - 1.10 mg/dL [facility] Calcium 8.3(L) 8.5 - 10.3 mg/dL [facility] Protein, pl 7.3 6.5 - 8.5 g/dL [facility] Albumin 2.9(L) 3.5 - 5.0 g/dL [facility] Bilirubin, total 0.5 0.1 - 1.2 mg/dL [facility] Alk phos 157(H) 40 - 130 Units/L [facility] AST 33 10 - 45 Units/L [facility] Comment:Slightly Hemolyzed S pecimen ALT 18 7 - 45 Units/L [facility] Blood 01/14/2025 9:30 AM CDT 01/14/2025 2:04 PM CDT Irma Arias MD LAB BLOOD ORDERABLES Final Resu lt Performing Organization Address [facility]/ZIP Co de Phone Number [facility] [address] Department [place] [address] * (ABNORMAL) CBC with auto differential (01/14/2025 9:30 AM CDT) WBC 3.9 3.8 - 9.9 K/cumm Hgb 10.6(L) 11.9 - 15.5 g/dL [facility] Hct 34.4(L) 35.6 - 45.5 % [facility] Plt 160 150 - 400 K/cumm [facility] MPV 11.6 9.1 - 12.3 fL [facility] RBC 3.47(L) 3.90 - 5.20 M/cumm [facility] MCV 99.1(H) 81.3 - 96.4 fL [facility] MCH 30.5 27.1 - 33.3 pg [facility] MCHC 30.8(L) 32.3 - 35.7 g/dL [facility] RDW CV 18.0(H) 11.1 - 14.9 % [facility] RDW SD 63.5(H) 35.7 - 48.1 fL [facility] NRBC abs 0.00 0.00 - 0.01 K/cumm [facility] Blood 01/14/2025 9:30 AM CDT 01/14/2025 2:04 PM CDT Irma Arias MD LAB BLOOD ORDERABLES Final Resu lt [facility] [address] Department [employer] [place] [address] * Glucose, random (Outreach) (01/07/2025 11:45 AM CDT) Glucose 135 70 - 199 mg/dL Comment: [...] ORDERABLES Final Resul t Performing Organization Address [facility] Co de Phone Number [facility] [address] Department [place] [employer] [place] [address] * (ABNORMAL) eGFR (01/07/2025 11:45 AM CDT) [...] DO LAB BLOOD ORDERABLES Final Resul t [facility] [address] Department [place] [address] * (ABNORMAL) Differential, auto (01/07/2025 11:45 AM CDT) Neutrophil abs 3.6 1.5 - 6.5 K/cumm Imm gran abs 0.0 0.0 - 0.1 K/cumm [facility] Lymphocyte abs 0.6(L) 0.8 - 3.3 K/cumm [facility] Monocyte abs 0.2 0.2 - 0.8 K/cumm [facility] Eosinophil abs 0.0 0.0 - 0.5 K/cumm [facility] Basophil abs 0.0 0.0 - 0.1 K/cumm [facility] Neutrophil pct 79.7 % [facility] Comment: Interpretive Data Percent cell count reference ranges are not reported, since discordance with absolute values may lead to misinterpretation of CBC data. Current Interpretive Data was last revised on 2018. Imm gran pct 0.2 % [facility] Comment: Interpretive Data Percent cell count reference ranges are not reported, since discordance with absolute values may lead to misinterpretation of CBC data. Current Interpretive Data was last revised on 2018. Lymphocyte pct 14.1 % [facility] Comment: Interpretive Data Percent cell count reference ranges are not reported, since discordance with absolute values may lead to misinterpretation of CBC data. Current Interpretive Data was last revised on 2018. Monocyte pct 5.4 % [facility] Comment: Interpretive Data Percent cell count reference ranges are not reported, since discordance with absolute values may lead to misinterpretation of CBC data. Current Interpretive Data was last revised on 2018. Eosinophil pct 0.4 % [facility] Comment: Interpretive Data Percent cell count reference ranges are not reported, since discordance with absolute values may lead to misinterpretation of CBC data. Current Interpretive Data was last revised on 2018. Basophil pct 0.2 % [facility] Comment: Interpretive Data Percent cell count reference ranges are not reported, since discordance with absolute values may lead to misinterpretation of CBC data. Current Interpretive Data was last revised on 2018. Blood 01/07/2025 11:4 5 AM CDT 01/07/2025 9:16 PM CDT us Vinny Lugo DO LAB BLOOD ORDERABLES Final Resul t [facility] [address] Department [place] [address] * (ABNORMAL) Comprehensive metabolic panel, without glucose (Outreach) (01/07/2025 11:45 AM CDT) Sodium 140 135 - 145 mmol/L Potassium, pl 4.5 3.3 - 4.9 mmol/L [facility] Chloride 99 97 - 110 mmol/L [facility] CO2 27 22 - 32 mmol/L [facility] Anion gap 14 2 - 15 mmol/L [facility] BUN 21 6 - 25 mg/dL [facility] Creatinine 3.80(H) 0.60 - 1.10 mg/dL [facility] Calcium 8.4(L) 8.5 - 10.3 mg/dL [facility] Protein, pl 7.7 6.5 - 8.5 g/dL [facility] Albumin 2.8(L) 3.5 - 5.0 g/dL [facility] Bilirubin, total <0.2 0.1 - 1.2 mg/dL [facility] Alk phos 163(H) 40 - 130 Units/L [facility] AST 34 10 - 45 Units/L [facility] ALT 15 7 - 45 Units/L [facility] Blood 01/07/2025 11:4 5 AM CDT 01/07/2025 9:15 PM CDT Vinny Lugo DO LAB BLOOD ORDERABLES Final Resul t Performing Organization Address [facility] Co de Phone Number [facility] [address] [employer] [place] [address] * (ABNORMAL) CBC with auto differential (01/07/2025 11:45 AM CDT) Pathologist [facility] WBC 4.5 3.8 - 9.9 K/cumm Hgb 10.1(L) 11.9 - 15.5 g/dL [facility] Hct 33.6(L) 35.6 - 45.5 % [facility] Plt 146(L) 150 - 400 K/cumm [facility] MPV 11.9 9.1 - 12.3 fL [facility] RBC 3.40(L) 3.90 - 5.20 M/cumm [facility] MCV 98.8(H) 81.3 - 96.4 fL [facility] MCH 29.7 27.1 - 33.3 pg [facility] MCHC 30.1(L) 32.3 - 35.7 g/dL [facility] RDW CV 16.9(H) 11.1 - 14.9 % [facility] RDW SD 60.9(H) 35.7 - 48.1 fL [facility] NRBC abs 0.00 0.00 - 0.01 K/cumm [facility] Blood 01/07/2025 11:4 5 AM CDT 01/07/2025 9:16 PM CDT Vinny Lugo DO LAB BLOOD ORDERABLES Final Resul t Performing Organization Address City/[facility]/ZIP Co de Phone Number [facility] [address] Department [place] [address] * Glucose, random (Outreach) (12/31/2024 10:35 AM HAND SPRAY OPERATOR) Glucose 96 70 - 199 mg/dL Comment: [...] revised 2022. Blood 12/31/2024 10:3 5 AM HAND SPRAY OPERATOR 12/31/2024 4:21 PM HAND SPRAY OPERATOR us Vinny Lugo DO LAB BLOOD ORDERABLES Final Resul t [facility] [address] Department [place] [address] * (ABNORMAL) eGFR (12/31/2024 10:35 AM HAND SPRAY OPERATOR) eGFR 14(L) >=60 mL/min/1. 73 m2 Comment: [...] reviewed 2021. Blood 12/31/2024 10:3 5 AM HAND SPRAY OPERATOR 12/31/2024 8:23 PM HAND SPRAY OPERATOR us Vinny Lugo DO LAB BLOOD ORDERABLES Final Resul t [facility] [address] Department [place] [address] * Differential, auto (12/31/2024 10:35 AM HAND SPRAY OPERATOR) Neutrophil abs 2.5 1.5 - 6.5 K/cumm Imm gran abs 0.0 0.0 - 0.1 K/cumm [facility] Lymphocyte abs 0.8 0.8 - 3.3 K/cumm [facility] Monocyte abs 0.4 0.2 - 0.8 K/cumm [facility] Eosinophil abs 0.1 0.0 - 0.5 K/cumm [facility] Basophil abs 0.0 0.0 - 0.1 K/cumm [facility] Neutrophil pct 66.3 % [facility] Comment: Interpretive Data Percent cell count reference ranges are not reported, since discordance with absolute values may lead to misinterpretation of CBC data. Current Interpretive Data was last revised on 2018. Imm gran pct 0.3 % [facility] Comment: Interpretive Data Percent cell count reference ranges are not reported, since discordance with absolute values may lead to misinterpretation of CBC data. Current Interpretive Data was last revised on 2018. Lymphocyte pct 21.6 % [facility] Comment: Interpretive Data Percent cell count reference ranges are not reported, since discordance with absolute values may lead to misinterpretation of CBC data. Current Interpretive Data was last revised on 2018. Monocyte pct 9.2 % [facility] Comment: Interpretive Data Percent cell count reference ranges are not reported, since discordance with absolute values may lead to misinterpretation of CBC data. Current Interpretive Data was last revised on 2018. Eosinophil pct 2.1 % [facility] Comment: Interpretive Data Percent cell count reference ranges are not reported, since discordance with absolute values may lead to misinterpretation of CBC data. Current Interpretive Data was last revised on 2018. Basophil pct 0.5 % [facility] Comment: Interpretive Data Percent cell count reference ranges are not reported, since discordance with absolute values may lead to misinterpretation of CBC data. Current Interpretive Data was last revised on 2018. Blood 12/31/2024 10:3 5 AM HAND SPRAY OPERATOR 12/31/2024 4:22 PM HAND SPRAY OPERATOR Vinny Lugo LAB BLOOD ORDERABLES Final Resul t Performing Organization Address City/[facility]/ZIP Co de Phone Number [facility] [address] Department [employer] [place] [address] * (ABNORMAL) Comprehensive metabolic panel, without glucose (Outreach) (12/31/2024 10:35 AM HAND SPRAY OPERATOR) Sodium 141 135 - 145 mmol/L Potassium, pl 4.1 3.3 - 4.9 mmol/L [facility] Chloride 99 97 - 110 mmol/L [facility] CO2 31 22 - 32 mmol/L [facility] Anion gap 11 2 - 15 mmol/L [facility] BUN 15 6 - 25 mg/dL [facility] Creatinine 3.65(H) 0.60 - 1.10 mg/dL [facility] Calcium 8.2(L) 8.5 - 10.3 mg/dL [facility] Protein, pl 7.3 6.5 - 8.5 g/dL [facility] Albumin 2.6(L) 3.5 - 5.0 g/dL [facility] Bilirubin, total 0.4 0.1 - 1.2 mg/dL [facility] Alk phos 138(H) 40 - 130 Units/L [facility] AST 22 10 - 45 Units/L [facility] ALT 12 7 - 45 Units/L [facility] Blood 12/31/2024 10:3 5 AM HAND SPRAY OPERATOR 12/31/2024 4:21 PM HAND SPRAY OPERATOR Vinny Lugo LAB BLOOD ORDERABLES Final Resul t Performing Organization Address [facility]/ZIP Co de Phone Number [facility] [address] Department [employer] [place] [address] * (ABNORMAL) CBC with auto differential (12/31/2024 10:35 AM HAND SPRAY OPERATOR) [facility] WBC 3.8 3.8 - 9.9 K/cumm Hgb 9.5(L) 11.9 - 15.5 g/dL [facility] Hct 31.4(L) 35.6 - 45.5 % [facility] Plt 169 150 - 400 K/cumm [facility] MPV 11.9 9.1 - 12.3 fL [facility] RBC 3.18(L) 3.90 - 5.20 M/cumm [facility] MCV 98.7(H) 81.3 - 96.4 fL [facility] MCH 29.9 27.1 - 33.3 pg [facility] MCHC 30.3(L) 32.3 - 35.7 g/dL [facility] RDW CV 17.3(H) 11.1 - 14.9 % [facility] RDW SD 61.4(H) 35.7 - 48.1 fL [facility] NRBC abs 0.00 0.00 - 0.01 K/cumm [facility] Blood 12/31/2024 10:3 5 AM HAND SPRAY OPERATOR 12/31/2024 4:22 PM HAND SPRAY OPERATOR us Vinny Lugo DO LAB BLOOD ORDERABLES Final Resul t [facility] [address] Department [place] [address] * Glucose, random (Outreach) (12/24/2024 1:45 PM HAND SPRAY OPERATOR) [facility] Glucose 158 70 - 199 mg/dL Comment: [...] last revised 2022. Blood 12/24/2024 1:45 PM HAND SPRAY OPERATOR 12/24/2024 3:38 PM HAND SPRAY OPERATOR Irma Arias MD LAB BLOOD ORDERABLES Final Resu lt Performing Organization Address [facility] Co de Phone Number [facility] [place] [address] * (ABNORMAL) eGFR (12/24/2024 1:45 PM HAND SPRAY OPERATOR) eGFR 13(L) >=60 mL/min/1. 73 m2 Comment: [...] last reviewed 2021. Blood 12/24/2024 1:45 PM HAND SPRAY OPERATOR 12/24/2024 3:40 PM HAND SPRAY OPERATOR Irma Arias MD LAB BLOOD ORDERABLES Final Resu lt Performing Organization Address [facility]/ZIP Co de Phone Number [facility] Department [employer] [place] [address] * (ABNORMAL) Differential, auto (12/24/2024 1:45 PM HAND SPRAY OPERATOR) Neutrophil abs 3.7 1.5 - 6.5 K/cumm Imm gran abs 0.1 0.0 - 0.1 K/cumm [facility] Lymphocyte abs 0.7(L) 0.8 - 3.3 K/cumm [facility] Monocyte abs 0.3 0.2 - 0.8 K/cumm [facility] Eosinophil abs 0.0 0.0 - 0.5 K/cumm [facility] Basophil abs 0.0 0.0 - 0.1 K/cumm [facility] Neutrophil pct 78.6 % [facility] Comment: Interpretive Data Percent cell count reference ranges are not reported, since discordance with absolute values may lead to misinterpretation of CBC data. Current Interpretive Data was last revised on 2018. Imm gran pct 1.1 % [facility] Comment: Interpretive Data Percent cell count reference ranges are not reported, since discordance with absolute values may lead to misinterpretation of CBC data. Current Interpretive Data was last revised on 2018. Lymphocyte pct 13.8 % [facility] Comment: Interpretive Data Percent cell count reference ranges are not reported, since discordance with absolute values may lead to misinterpretation of CBC data. Current Interpretive Data was last revised on 2018. Monocyte pct 5.5 % [facility] Comment: Interpretive Data Percent cell count reference ranges are not reported, since discordance with absolute values may lead to misinterpretation of CBC data. Current Interpretive Data was last revised on 2018. Eosinophil pct 0.6 % [facility] Comment: Interpretive Data Percent cell count reference ranges are not reported, since discordance with absolute values may lead to misinterpretation of CBC data. Current Interpretive Data was last revised on 2018. Basophil pct 0.4 % [facility] Comment: Interpretive Data Percent cell count reference ranges are not reported, since discordance with absolute values may lead to misinterpretation of CBC data. Current Interpretive Data was last revised on 2018. Blood 12/24/2024 1:45 PM HAND SPRAY OPERATOR 12/24/2024 3:38 PM HAND SPRAY OPERATOR us Irma Arias MD LAB BLOOD ORDERABLES Final Resu lt [facility] Department [place] [address] * (ABNORMAL) Comprehensive metabolic panel, without glucose (Outreach) (12/24/2024 1:45 PM HAND SPRAY OPERATOR) [facility] Sodium 138 135 - 145 mmol/L Potassium, pl 4.6 3.3 - 4.9 mmol/L [facility] Chloride 100 97 - 110 mmol/L [facility] CO2 31 22 - 32 mmol/L [facility] Anion gap 7 2 - 15 mmol/L [facility] BUN 16 6 - 25 mg/dL [facility] Creatinine 3.94(H) 0.60 - 1.10 mg/dL [facility] Calcium 8.4(L) 8.5 - 10.3 mg/dL [facility] Protein, pl 7.7 6.5 - 8.5 g/dL [facility] Albumin 2.5(L) 3.5 - 5.0 g/dL [facility] Bilirubin, total 0.5 0.1 - 1.2 mg/dL [facility] Alk phos 169(H) 40 - 130 Units/L [facility] AST 19 10 - 45 Units/L [facility] ALT 11 7 - 45 Units/L [facility] Blood 12/24/2024 1:45 PM HAND SPRAY OPERATOR 12/24/2024 3:38 PM HAND SPRAY OPERATOR us Irma Arias MD LAB BLOOD ORDERABLES Final Resu lt [facility] Department [place] [address] * (ABNORMAL) CBC with auto differential (12/24/2024 1:45 PM HAND SPRAY OPERATOR) [facility] WBC 4.7 3.8 - 9.9 K/cumm Hgb 8.7(L) 11.9 - 15.5 g/dL [facility] Hct 27.7(L) 35.6 - 45.5 % [facility] Plt 169 150 - 400 K/cumm [facility] MPV 11.4 9.1 - 12.3 fL [facility] RBC 2.84(L) 3.90 - 5.20 M/cumm [facility] MCV 97.5(H) 81.3 - 96.4 fL [facility] MCH 30.6 27.1 - 33.3 pg [facility] MCHC 31.4(L) 32.3 - 35.7 g/dL [facility] RDW CV 17.2(H) 11.1 - 14.9 % [facility] RDW SD 58.4(H) 35.7 - 48.1 fL [facility] NRBC abs 0.00 0.00 - 0.01 K/cumm [facility] Blood 12/24/2024 1:45 PM HAND SPRAY OPERATOR 12/24/2024 3:38 PM HAND SPRAY OPERATOR Irma Arias MD LAB BLOOD ORDERABLES Final Resu lt Performing Organization Address [facility] [facility] de Phone Number [facility] Department [place] [address] * Glucose, random (Outreach) (12/17/2024 11:00 AM HAND SPRAY OPERATOR) [facility] Signature Glucose 112 70 - 199 mg/dL Comment: [...] revised 2022. Blood 12/17/2024 11:0 0 AM HAND SPRAY OPERATOR 12/17/2024 2:17 PM HAND SPRAY OPERATOR Irma Arias MD LAB BLOOD ORDERABLES Final Resu lt [facility] [address] Department [place] [address] * (ABNORMAL) eGFR (12/17/2024 11:00 AM HAND SPRAY OPERATOR) Pathologist [facility] [place] eGFR 12(L) >=60 mL/min/1. 73 m2 Comment: [...] reviewed 2021. Blood 12/17/2024 11:0 0 AM HAND SPRAY OPERATOR 12/17/2024 3:40 PM HAND SPRAY OPERATOR us Irma Arias MD LAB BLOOD ORDERABLES Final Resu lt [facility] [address] Department [place] [address] * (ABNORMAL) Differential, auto (12/17/2024 11:00 AM HAND SPRAY OPERATOR) Pathologist [facility] [place] Neutrophil abs 3.9 1.5 - 6.5 K/cumm Imm gran abs 0.0 0.0 - 0.1 K/cumm [facility] Lymphocyte abs 0.7(L) 0.8 - 3.3 K/cumm [facility] Monocyte abs 0.4 0.2 - 0.8 K/cumm [facility] Eosinophil abs 0.1 0.0 - 0.5 K/cumm [facility] Basophil abs 0.0 0.0 - 0.1 K/cumm [facility] Neutrophil pct 77.1 % [facility] Comment: Interpretive Data Percent cell count reference ranges are not reported, since discordance with absolute values may lead to misinterpretation of CBC data. Current Interpretive Data was last revised on 2018. Imm gran pct 0.2 % [facility] Comment: Interpretive Data Percent cell count reference ranges are not reported, since discordance with absolute values may lead to misinterpretation of CBC data. Current Interpretive Data was last revised on 2018. Lymphocyte pct 12.8 % [facility] Comment: Interpretive Data Percent cell count reference ranges are not reported, since discordance with absolute values may lead to misinterpretation of CBC data. Current Interpretive Data was last revised on 2018. Monocyte pct 7.7 % [facility] Comment: Interpretive Data Percent cell count reference ranges are not reported, since discordance with absolute values may lead to misinterpretation of CBC data. Current Interpretive Data was last revised on 2018. Eosinophil pct 1.6 % [facility] Comment: Interpretive Data Percent cell count reference ranges are not reported, since discordance with absolute values may lead to misinterpretation of CBC data. Current Interpretive Data was last revised on 2018. Basophil pct 0.6 % [facility] Comment: Interpretive Data Percent cell count reference ranges are not reported, since discordance with absolute values may lead to misinterpretation of CBC data. Current Interpretive Data was last revised on 2018. Blood 12/17/2024 11:0 0 AM HAND SPRAY OPERATOR 12/17/2024 2:20 PM HAND SPRAY OPERATOR us Irma Arias MD LAB BLOOD ORDERABLES Final Resu lt [facility] [address] Department [place] [address] * (ABNORMAL) Comprehensive metabolic panel, without glucose (Outreach) (12/17/2024 11:00 AM HAND SPRAY OPERATOR) Sodium 140 135 - 145 mmol/L Potassium, pl 3.5 3.3 - 4.9 mmol/L [facility] Chloride 99 97 - 110 mmol/L [facility] CO2 32 22 - 32 mmol/L [facility] Anion gap 9 2 - 15 mmol/L [facility] BUN 13 6 - 25 mg/dL [facility] Creatinine 4.28(H) 0.60 - 1.10 mg/dL [facility] Calcium 8.1(L) 8.5 - 10.3 mg/dL [facility] Protein, pl 7.0 6.5 - 8.5 g/dL [facility] Albumin 2.5(L) 3.5 - 5.0 g/dL [facility] Bilirubin, total 0.4 0.1 - 1.2 mg/dL [facility] Alk phos 130 40 - 130 Units/L [facility] AST 21 10 - 45 Units/L [facility] ALT 15 7 - 45 Units/L [facility] Blood 12/17/2024 11:0 0 AM HAND SPRAY OPERATOR 12/17/2024 2:17 PM HAND SPRAY OPERATOR us Irma Arias MD LAB BLOOD ORDERABLES Final Resu lt [facility] [address] Department [place] [address] * (ABNORMAL) CBC with auto differential (12/17/2024 11:00 AM HAND SPRAY OPERATOR) WBC 5.1 3.8 - 9.9 K/cumm Hgb 7.6(L) 11.9 - 15.5 g/dL [facility] Hct 23.9(L) 35.6 - 45.5 % [facility] Plt 212 150 - 400 K/cumm [facility] MPV 11.2 9.1 - 12.3 fL [facility] RBC 2.53(L) 3.90 - 5.20 M/cumm [facility] MCV 94.5 81.3 - 96.4 fL [facility] MCH 30.0 27.1 - 33.3 pg [facility] MCHC 31.8(L) 32.3 - 35.7 g/dL [facility] RDW CV 15.0(H) 11.1 - 14.9 % [facility] RDW SD 51.9(H) 35.7 - 48.1 fL [facility] NRBC abs 0.00 0.00 - 0.01 K/cumm [facility] Blood 12/17/2024 11:0 0 AM HAND SPRAY OPERATOR 12/17/2024 2:20 PM HAND SPRAY OPERATOR us Irma Arias MD LAB BLOOD ORDERABLES Final Resu lt [facility] [address] Department [place] [address] * (ABNORMAL) eGFR (12/11/2024 9:51 PM HAND SPRAY OPERATOR) eGFR 20(L) >=60 mL/min/1. 73 m2 Comment: [...] last reviewed 2021. Blood 12/11/2024 9:51 PM HAND SPRAY OPERATOR 12/11/2024 10:22 PM HAND SPRAY OPERATOR us Nick Brown NP LAB BLOOD ORDERABLES Final Result [facility] Department [place] [address] * (ABNORMAL) Differential, auto (12/11/2024 9:51 PM HAND SPRAY OPERATOR) Neutrophil abs 4.8 1.5 - 6.5 K/cumm Imm gran abs 0.0 0.0 - 0.1 K/cumm [facility] Lymphocyte abs 0.6(L) 0.8 - 3.3 K/cumm [facility] Monocyte abs 0.4 0.2 - 0.8 K/cumm [facility] Eosinophil abs 0.0 0.0 - 0.5 K/cumm [facility] Basophil abs 0.0 0.0 - 0.1 K/cumm [facility] Neutrophil pct 82.2 % [facility] Comment: Interpretive Data Percent cell count reference ranges are not reported, since discordance with absolute values may lead to misinterpretation of CBC data. Current Interpretive Data was last revised on 2018. Imm gran pct 0.3 % [facility] Comment: Interpretive Data Percent cell count reference ranges are not reported, since discordance with absolute values may lead to misinterpretation of CBC data. Current Interpretive Data was last revised on 2018. Lymphocyte pct 9.8 % [facility] Comment: Interpretive Data Percent cell count reference ranges are not reported, since discordance with absolute values may lead to misinterpretation of CBC data. Current Interpretive Data was last revised on 2018. Monocyte pct 6.5 % [facility] Comment: Interpretive Data Percent cell count reference ranges are not reported, since discordance with absolute values may lead to misinterpretation of CBC data. Current Interpretive Data was last revised on 2018. Eosinophil pct 0.7 % [facility] Comment: Interpretive Data Percent cell count reference ranges are not reported, since discordance with absolute values may lead to misinterpretation of CBC data. Current Interpretive Data was last revised on 2018. Basophil pct 0.5 % [facility] Comment: Interpretive Data Percent cell count reference ranges are not reported, since discordance with absolute values may lead to misinterpretation of CBC data. Current Interpretive Data was last revised on 2018. Blood 12/11/2024 9:51 PM HAND SPRAY OPERATOR 12/11/2024 10:25 PM HAND SPRAY OPERATOR us Vj Oreilly MD LAB BLOOD ORDERABLES Sarah l Result [facility] Department [place] [address] * (ABNORMAL) CBC without differential (12/11/2024 9:51 PM HAND SPRAY OPERATOR) [facility] WBC 6.1 3.8 - 9.9 K/cumm Hgb 7.7(L) 11.9 - 15.5 g/dL [facility] Hct 23.7(L) 35.6 - 45.5 % [facility] Plt 170 150 - 400 K/cumm [facility] MPV 10.5 9.1 - 12.3 fL [facility] RBC 2.63(L) 3.90 - 5.20 M/cumm [facility] MCV 90.1 81.3 - 96.4 fL [facility] MCH 29.3 27.1 - 33.3 pg [facility] MCHC 32.5 32.3 - 35.7 g/dL [facility] RDW CV 14.7 11.1 - 14.9 % [facility] RDW SD 48.6(H) 35.7 - 48.1 fL [facility] NRBC abs 0.00 0.00 - 0.01 K/cumm [facility] Blood 12/11/2024 9:51 PM HAND SPRAY OPERATOR 12/11/2024 10:21 PM HAND SPRAY OPERATOR us Nick Brown NP LAB BLOOD ORDERABLES Final Result Performing Organization Address [facility]/ZIP Co de Phone Number [facility] [place] [address] * (ABNORMAL) Phosphorus (12/11/2024 9:51 PM HAND SPRAY OPERATOR) Pathologist [facility] [place] Phosphorus, pl 2.1(L) 2.3 - 4.5 mg/dL Blood 12/11/2024 9:51 PM HAND SPRAY OPERATOR 12/11/2024 10:22 PM HAND SPRAY OPERATOR Nick Brown NP LAB BLOOD ORDERABLES Final Result Performing Organization Address [facility] Co de Phone Number [facility] [place] [address] * Magnesium (12/11/2024 9:51 PM HAND SPRAY OPERATOR) Pathologist [facility] [place] Magnesium 2.1 1.4 - 2.5 mg/dL Blood 12/11/2024 9:51 PM HAND SPRAY OPERATOR 12/11/2024 10:22 PM HAND SPRAY OPERATOR Nick Brown NP LAB BLOOD ORDERABLES Final Result Performing Organization Address [facility] Phone Number [facility] [place] [address] * (ABNORMAL) Hepatic function panel (12/11/2024 9:51 PM HAND SPRAY OPERATOR) [facility] Bilirubin, total 0.4 0.1 - 1.2 mg/dL Bilirubin, direct <0.2 0.1 - 0.3 mg/dL [facility] Protein, pl 7.2 6.5 - 8.5 g/dL [facility] Albumin 2.2(L) 3.5 - 5.0 g/dL [facility] Alk phos 97 40 - 130 Units/L [facility] ALT 11 7 - 45 Units/L [facility] AST 30 10 - 45 Units/L [facility] Blood 12/11/2024 9:51 PM HAND SPRAY OPERATOR 12/11/2024 10:22 PM HAND SPRAY OPERATOR Vj Oreilly MD LAB BLOOD ORDERABLES Sarah l Result Performing Organization Address [facility] Co de Phone Number [facility] [place] [address] * (ABNORMAL) Basic metabolic panel (12/11/2024 9:51 PM HAND SPRAY OPERATOR) Pathologist [facility] [place] Sodium 136 135 - 145 mmol/L Potassium, pl 4.0 3.3 - 4.9 mmol/L [facility] Chloride 98 97 - 110 mmol/L [facility] CO2 31 22 - 32 mmol/L [facility] Anion gap 7 2 - 15 mmol/L [facility] BUN 7 6 - 25 mg/dL [facility] Creatinine 2.70(H) 0.60 - 1.10 mg/dL [facility] Glucose 196 70 - 199 mg/dL [facility] Comment: Interpretive Data Fasting glucose >/= 126 [...] 2022. Calcium 7.6(L) 8.5 - 10.3 mg/dL [facility] Blood 12/11/2024 9:51 PM HAND SPRAY OPERATOR 12/11/2024 10:22 PM HAND SPRAY OPERATOR us Nick Brown NP LAB BLOOD ORDERABLES Final Result [facility] Department [place] [address] * (ABNORMAL) CBC without differential (12/10/2024 9:24 PM HAND SPRAY OPERATOR) [facility] WBC 5.8 3.8 - 9.9 K/cumm Hgb 7.6(L) 11.9 - 15.5 g/dL [facility] Hct 22.8(L) 35.6 - 45.5 % [facility] Plt 149(L) 150 - 400 K/cumm [facility] MPV 10.6 9.1 - 12.3 fL [facility] RBC 2.55(L) 3.90 - 5.20 M/cumm [facility] MCV 89.4 81.3 - 96.4 fL [facility] MCH 29.8 27.1 - 33.3 pg [facility] MCHC 33.3 32.3 - 35.7 g/dL [facility] RDW CV 15.2(H) 11.1 - 14.9 % [facility] RDW SD 49.1(H) 35.7 - 48.1 fL [facility] NRBC abs 0.00 0.00 - 0.01 K/cumm [facility] Blood 12/10/2024 9:24 PM HAND SPRAY OPERATOR 12/10/2024 9:35 PM HAND SPRAY OPERATOR Edyta Guerrero COMMUTATOR INSPECTOR LAB BLOOD ORDERABLES Final Result Performing Organization Address [facility] Co de Phone Number [facility] Department of [employer] [place] [address] * Type and screen (12/10/2024 8:34 PM HAND SPRAY OPERATOR) Pathologist [facility] [place] ABO Rh B Positive Radha, indirect Negative [facility] Blood 12/10/2024 8:34 PM HAND SPRAY OPERATOR 12/10/2024 8:57 PM HAND SPRAY OPERATOR Narrative [facility] - 12/10/2024 9:54 PM HAND SPRAY OPERATOR Has the patient had Daratumumab or Isatuximab in the past 6 months?->Unknown Edda Segal COMMUTATOR INSPECTOR LAB BLOOD BANK TEST ORDERABLES Final Result [facility] [employer] [place] [address] * (ABNORMAL) eGFR (12/10/2024 8:31 PM HAND SPRAY OPERATOR) Pathologist [facility] [place] eGFR 14(L) >=60 mL/min/1. 73 m2 Comment: [...] last reviewed 2021. Blood 12/10/2024 8:31 PM HAND SPRAY OPERATOR 12/10/2024 8:51 PM HAND SPRAY OPERATOR us Nick Brown NP LAB BLOOD ORDERABLES Final Result [facility] Department [place] [address] * (ABNORMAL) CBC without differential (12/10/2024 8:31 PM HAND SPRAY OPERATOR) WBC 5.4 3.8 - 9.9 K/cumm Hgb 6.9(L) 11.9 - 15.5 g/dL [facility] Hct 20.9(L) 35.6 - 45.5 % [facility] Plt 129(L) 150 - 400 K/cumm [facility] MPV 11.1 9.1 - 12.3 fL [facility] RBC 2.33(L) 3.90 - 5.20 M/cumm [facility] MCV 89.7 81.3 - 96.4 fL [facility] MCH 29.6 27.1 - 33.3 pg [facility] MCHC 33.0 32.3 - 35.7 g/dL [facility] RDW CV 15.3(H) 11.1 - 14.9 % [facility] RDW SD 50.3(H) 35.7 - 48.1 fL [facility] NRBC abs 0.00 0.00 - 0.01 K/cumm [facility] Blood 12/10/2024 8:31 PM HAND SPRAY OPERATOR 12/10/2024 8:51 PM HAND SPRAY OPERATOR Nick Brown COMMUTATOR INSPECTOR LAB BLOOD ORDERABLES Final Result Performing Organization Address [facility] de Phone Number [facility] [place] [address] * Phosphorus (12/10/2024 8:31 PM HAND SPRAY OPERATOR) [facility] Phosphorus, pl 2.3 2.3 - 4.5 mg/dL Blood 12/10/2024 8:31 PM HAND SPRAY OPERATOR 12/10/2024 8:51 PM HAND SPRAY OPERATOR Nick Brown COMMUTATOR INSPECTOR LAB BLOOD ORDERABLES Final Result Performing Organization Address [facility] de Phone Number [facility] [place] [address] * Magnesium (12/10/2024 8:31 PM HAND SPRAY OPERATOR) [facility] Magnesium 2.0 1.4 - 2.5 mg/dL Blood 12/10/2024 8:31 PM HAND SPRAY OPERATOR 12/10/2024 8:51 PM HAND SPRAY OPERATOR Nick Brown COMMUTATOR INSPECTOR LAB BLOOD ORDERABLES Final Result Performing Organization Address [facility] [place] [address] * (ABNORMAL) Basic metabolic panel (12/10/2024 8:31 PM HAND SPRAY OPERATOR) [facility] Sodium 135 135 - 145 mmol/L Potassium, pl 3.6 3.3 - 4.9 mmol/L [facility] Chloride 100 97 - 110 mmol/L [facility] CO2 28 22 - 32 mmol/L [facility] Anion gap 7 2 - 15 mmol/L [facility] BUN 12 6 - 25 mg/dL [facility] Creatinine 3.80(H) 0.60 - 1.10 mg/dL [facility] Glucose 158 70 - 199 mg/dL [facility] Comment: Interpretive Data Fasting glucose >/= 126 [...] 2022. Calcium 7.2(L) 8.5 - 10.3 mg/dL [facility] Blood 12/10/2024 8:31 PM HAND SPRAY OPERATOR 12/10/2024 8:51 PM HAND SPRAY OPERATOR Nick Brown NP LAB BLOOD ORDERABLES Final Result Performing Organization Address City/State/ZIP [facility] Phone Number [facility] Department [place] [address] * Infection Prevention Leidy auris PCR, surveillance Axilla/Groin (12/10/2024 6:41 PM HAND SPRAY OPERATOR) Leidy auris DNA Not Detected Not Detected [facility] Comment: Interpretive Data Testing performed by [facility] Infectious Disease [facility] using the Jannie [id number] [id number] Leidy auris assay. This assay detects DNA from Leidy auris using Real-Time PCR. This assay is laboratory developed and is not cleared by the [place] Food and Drug Administration. The performance characteristics have been verified by the [facility] Infectious Disease [facility]. Axilla/Groin 12/10/2024 6:41 PM HAND SPRAY OPERATOR 12/10/2024 7:05 PM HAND SPRAY OPERATOR Paco Hunter MD LAB MICROBIOLOGY - GENERAL ORDER CHERI Final Result [facility] Department [place] [address] [facility] * (ABNORMAL) CBC without differential (12/09/2024 9:36 PM HAND SPRAY OPERATOR) [facility] WBC 6.1 3.8 - 9.9 K/cumm Hgb 7.9(L) 11.9 - 15.5 g/dL [facility] Hct 23.6(L) 35.6 - 45.5 % [facility] Plt 148(L) 150 - 400 K/cumm [facility] MPV 10.7 9.1 - 12.3 fL [facility] RBC 2.65(L) 3.90 - 5.20 M/cumm [facility] MCV 89.1 81.3 - 96.4 fL [facility] MCH 29.8 27.1 - 33.3 pg [facility] MCHC 33.5 32.3 - 35.7 g/dL [facility] RDW CV 15.3(H) 11.1 - 14.9 % [facility] RDW SD 50.2(H) 35.7 - 48.1 fL [facility] NRBC abs 0.00 0.00 - 0.01 K/cumm [facility] Blood 12/09/2024 9:36 PM HAND SPRAY OPERATOR 12/09/2024 10:12 PM HAND SPRAY OPERATOR Nick Brown COMMUTATOR INSPECTOR LAB BLOOD ORDERABLES Final Result Performing Organization Address [facility] Co de Phone Number [facility] Department [place] [address] * (ABNORMAL) eGFR (12/09/2024 9:28 PM HAND SPRAY OPERATOR) [facility] eGFR 22(L) >=60 mL/min/1. 73 m2 Comment: [...] last reviewed 2021. Blood 12/09/2024 9:28 PM HAND SPRAY OPERATOR 12/09/2024 10:13 PM HAND SPRAY OPERATOR Nick Brown NP LAB BLOOD ORDERABLES Final Result Performing Organization Address [facility] de Phone Number [facility] Department [place] [address] * (ABNORMAL) Phosphorus (12/09/2024 9:28 PM HAND SPRAY OPERATOR) Phosphorus, pl 1.7(L) 2.3 - 4.5 mg/dL Blood 12/09/2024 9:28 PM HAND SPRAY OPERATOR 12/09/2024 10:08 PM HAND SPRAY OPERATOR Nick Brown NP LAB BLOOD ORDERABLES Final Result Performing Organization Address [facility] de Phone Number [facility] Department [place] [address] * Magnesium (12/09/2024 9:28 PM HAND SPRAY OPERATOR) Magnesium 1.9 1.4 - 2.5 mg/dL Blood 12/09/2024 9:28 PM HAND SPRAY OPERATOR 12/09/2024 10:08 PM HAND SPRAY OPERATOR Nick Brown NP LAB BLOOD ORDERABLES Final Result Performing Organization Address [facility] de Phone Number [facility] Department [place] [address] * Creatine kinase (CK), total (12/09/2024 9:28 PM HAND SPRAY OPERATOR) Pathologist [facility] CK 36 30 - 200 Units/L Blood 12/09/2024 9:28 PM HAND SPRAY OPERATOR 12/09/2024 10:08 PM HAND SPRAY OPERATOR Vj Oreilly MD LAB BLOOD ORDERABLES Sarah l Result Performing Organization Address [facility] Co de Phone Number [facility] [place] [address] * (ABNORMAL) Basic metabolic panel (12/09/2024 9:28 PM HAND SPRAY OPERATOR) [facility] Sodium 138 135 - 145 mmol/L Potassium, pl 4.0 3.3 - 4.9 mmol/L [facility] Chloride 101 97 - 110 mmol/L [facility] CO2 31 22 - 32 mmol/L [facility] Anion gap 6 2 - 15 mmol/L [facility] BUN 7 6 - 25 mg/dL [facility] Creatinine 2.54(H) 0.60 - 1.10 mg/dL [facility] Glucose 124 70 - 199 mg/dL [facility] Comment: Interpretive Data Fasting glucose >/= 126 [...] 2022. Calcium 7.4(L) 8.5 - 10.3 mg/dL [facility] Blood 12/09/2024 9:28 PM HAND SPRAY OPERATOR 12/09/2024 10:08 PM HAND SPRAY OPERATOR us Nick Brown COMMUTATOR INSPECTOR LAB BLOOD ORDERABLES Final Result [facility] Department [place] [address] * IR Central Line Placement > 5 Years (12/09/2024 3:57 PM HAND SPRAY OPERATOR) Anatomical Region Laterality Modality Body N/A X-Ray Angiograph y 12/09/2024 4:17 PM HAND SPRAY OPERATOR Impressions 12/09/2024 4:41 PM HAND SPRAY OPERATOR Successful nontunneled catheter placement. PLAN: The catheter [...] Solo Salgado M.D. Narrative 12/09/2024 4:41 PM HAND SPRAY OPERATOR EXAMINATION: NONTUNNELED CENTRAL VENOUS CATHETER PLACEMENT (STD) [...] was obtained. Prior to beginning the procedure, [place] Protocol was used to confirm the patient's [...] was obtained. Prior to beginning the procedure, [place] Protocol was used to confirm the patient's [...] sult * (ABNORMAL) eGFR (12/08/2024 9:08 PM HAND SPRAY OPERATOR) eGFR 11(L) >=60 mL/min/1. 73 m2 Comment: [...] last reviewed 2021. Blood 12/08/2024 9:08 PM HAND SPRAY OPERATOR 12/08/2024 9:54 PM HAND SPRAY OPERATOR Nick Brown NP LAB BLOOD ORDERABLES Final Result [facility] Department [place] [address] * (ABNORMAL) CBC without differential (12/08/2024 9:08 PM HAND SPRAY OPERATOR) WBC 7.2 3.8 - 9.9 K/cumm Hgb 8.1(L) 11.9 - 15.5 g/dL [facility] Hct 24.4(L) 35.6 - 45.5 % [facility] Plt 145(L) 150 - 400 K/cumm [facility] MPV 10.8 9.1 - 12.3 fL [facility] RBC 2.74(L) 3.90 - 5.20 M/cumm [facility] MCV 89.1 81.3 - 96.4 fL [facility] MCH 29.6 27.1 - 33.3 pg [facility] MCHC 33.2 32.3 - 35.7 g/dL [facility] RDW CV 15.7(H) 11.1 - 14.9 % [facility] RDW SD 51.0(H) 35.7 - 48.1 fL [facility] NRBC abs 0.00 0.00 - 0.01 K/cumm [facility] Blood 12/08/2024 9:08 PM HAND SPRAY OPERATOR 12/08/2024 9:55 PM HAND SPRAY OPERATOR Nick Brown COMMUTATOR INSPECTOR LAB BLOOD ORDERABLES Final Result [facility] Department of [employer] [place] [address] * Phosphorus (12/08/2024 9:08 PM HAND SPRAY OPERATOR) Phosphorus, pl 2.4 2.3 - 4.5 mg/dL Blood 12/08/2024 9:08 PM HAND SPRAY OPERATOR 12/08/2024 9:54 PM HAND SPRAY OPERATOR Nick Brown COMMUTATOR INSPECTOR LAB BLOOD ORDERABLES Final Result [facility] [employer] [place] [address] * Magnesium (12/08/2024 9:08 PM HAND SPRAY OPERATOR) Magnesium 2.1 1.4 - 2.5 mg/dL Blood 12/08/2024 9:08 PM HAND SPRAY OPERATOR 12/08/2024 9:54 PM HAND SPRAY OPERATOR Nick Brown NP LAB BLOOD ORDERABLES Final Result [facility] Department [place] [address] * (ABNORMAL) Basic metabolic panel (12/08/2024 9:08 PM HAND SPRAY OPERATOR) Sodium 131(L) 135 - 145 mmol/L Potassium, pl 4.0 3.3 - 4.9 mmol/L [facility] Chloride 96(L) 97 - 110 mmol/L [facility] CO2 28 22 - 32 mmol/L [facility] Anion gap 7 2 - 15 mmol/L [facility] BUN 17 6 - 25 mg/dL [facility] Creatinine 4.41(H) 0.60 - 1.10 mg/dL [facility] Glucose 126 70 - 199 mg/dL [facility] Comment: Interpretive Data Fasting glucose >/= 126 [...] 2022. Calcium 7.8(L) 8.5 - 10.3 mg/dL [facility] [facility] Blood 12/08/2024 9:08 PM HAND SPRAY OPERATOR 12/08/2024 9:54 PM HAND SPRAY OPERATOR Nick Brown NP LAB BLOOD ORDERABLES Final Result Performing Organization Address City/[facility] Co de Phone Number [facility] Brenda [facility] Department [place] [address] * (ABNORMAL) CBC without differential (12/08/2024 12:51 PM HAND SPRAY OPERATOR) WBC 7.5 3.8 - 9.9 K/cumm Hgb 8.3(L) 11.9 - 15.5 g/dL [facility] Hct 25.3(L) 35.6 - 45.5 % [facility] Plt 138(L) 150 - 400 K/cumm [facility] MPV 11.3 9.1 - 12.3 fL [facility] RBC 2.79(L) 3.90 - 5.20 M/cumm [facility] MCV 90.7 81.3 - 96.4 fL [facility] MCH 29.7 27.1 - 33.3 pg [facility] MCHC 32.8 32.3 - 35.7 g/dL [facility] RDW CV 15.5(H) 11.1 - 14.9 % [facility] RDW SD 51.3(H) 35.7 - 48.1 fL [facility] NRBC abs 0.00 0.00 - 0.01 K/cumm [facility] Blood 12/08/2024 12:5 1 PM HAND SPRAY OPERATOR 12/08/2024 1:23 PM HAND SPRAY OPERATOR us Nick Brown NP LAB BLOOD ORDERABLES Final Result [facility] Department [place] [address] * XR Chest 1 View (12/08/2024 9:10 AM HAND SPRAY OPERATOR) Anatomical Region Laterality Modality Body, Chest N/A Computed Radiogr aphy 12/09/2024 11:0 6 AM HAND SPRAY OPERATOR Impressions 12/09/2024 11:06 AM HAND SPRAY OPERATOR Comparison to 12/06/2024. There is a right-sided [...] Nas Mishra M.D. Narrative 12/09/2024 11:06 AM HAND SPRAY OPERATOR EXAMINATION: 1 view chest radiograph Procedure Note [...] CT Chest WO Contrast (12/08/2024 8:57 AM HAND SPRAY OPERATOR) Anatomical Region Laterality Modality Body N/A Computed Tomogra phy 12/08/2024 9:50 AM HAND SPRAY OPERATOR Impressions 12/08/2024 10:53 AM HAND SPRAY OPERATOR 1. Postsurgical changes of median sternotomy for [...] Enzo Jean-Baptiste M.D. Narrative 12/08/2024 10:53 AM HAND SPRAY OPERATOR EXAMINATION: CT CHEST WO CONTRAST HISTORY: Evaluate [...] signed by: Enzo Jean-Baptiste M.D. Nick Brown COMMUTATOR INSPECTOR IMG CT PROCEDURES Final Re sult * Transfuse RBC (12/08/2024 8:06 AM HAND SPRAY OPERATOR) Blood Vj Oreilly MD BLOOD TRANSFUSION ORDERAB LES Final Result Performing Organization Address [facility] de Phone Number [facility] [employer] [place] [address] * Prepare RBC: 1 Units (12/08/2024 5:06 AM HAND SPRAY OPERATOR) [facility] Product code [id number] Unit Number [id number] [facility] Product Blood Type BPOS [facility] Dispense Status PRESUMED TRANSFUSED [facility] Blood 12/08/2024 5:06 AM HAND SPRAY OPERATOR 12/08/2024 5:08 AM HAND SPRAY OPERATOR Narrative [facility] - 12/08/2024 8:00 PM HAND SPRAY OPERATOR Are special requirements needed? (All products are leukoreduced and CMV- safe)- >No Date required:-[id number] LRRBC # of [id number] Reasons:-Hgb <7 g/dL} Vj Oreilly MD BLOOD BANK PRODUCT ORDERA BLES Final Result Performing Organization Address [facility] Co de Phone Number [facility] [employer] [place] [address] * (ABNORMAL) CBC without differential (12/08/2024 3:40 AM HAND SPRAY OPERATOR) [facility] WBC 5.7 3.8 - 9.9 K/cumm Hgb 6.5(L) 11.9 - 15.5 g/dL [facility] Hct 19.8(L) 35.6 - 45.5 % [facility] Plt 117(L) 150 - 400 K/cumm [facility] MPV 11.5 9.1 - 12.3 fL [facility] RBC 2.19(L) 3.90 - 5.20 M/cumm [facility] MCV 90.4 81.3 - 96.4 fL [facility] MCH 29.7 27.1 - 33.3 pg [facility] MCHC 32.8 32.3 - 35.7 g/dL [facility] RDW CV 15.1(H) 11.1 - 14.9 % [facility] RDW SD 50.4(H) 35.7 - 48.1 fL [facility] NRBC abs 0.00 0.00 - 0.01 K/cumm [facility] Blood 12/08/2024 3:40 AM HAND SPRAY OPERATOR 12/08/2024 4:46 AM HAND SPRAY OPERATOR Vj Oreilly MD LAB BLOOD ORDERABLES Sarah l Result Performing Organization Address City/[facility]/ZIP Co de Phone Number [facility] [employer] [place] [address] * Type and screen (12/08/2024 3:40 AM HAND SPRAY OPERATOR) Pathologist [facility] ABO Rh B Positive Radha, indirect Negative [facility] Blood 12/08/2024 3:40 AM HAND SPRAY OPERATOR 12/08/2024 5:34 AM HAND SPRAY OPERATOR Vj Oreilly MD LAB BLOOD BANK TEST ORDER CHERI Final Result Performing Organization Address City/[facility]/ZIP Co de Phone Number [facility] [employer] [place] [address] * (ABNORMAL) eGFR (12/07/2024 8:59 PM HAND SPRAY OPERATOR) Pathologist [facility] eGFR 20(L) >=60 mL/min/1. 73 m2 Comment: [...] last reviewed 2021. Blood 12/07/2024 8:59 PM HAND SPRAY OPERATOR 12/07/2024 10:10 PM HAND SPRAY OPERATOR Nick Brown COMMUTATOR INSPECTOR LAB BLOOD ORDERABLES Final Result [facility] Department [place] [address] * (ABNORMAL) CBC without differential (12/07/2024 8:59 PM HAND SPRAY OPERATOR) WBC 8.3 3.8 - 9.9 K/cumm Hgb 7.4(L) 11.9 - 15.5 g/dL [facility] Hct 22.9(L) 35.6 - 45.5 % [facility] Plt 144(L) 150 - 400 K/cumm [facility] MPV 11.4 9.1 - 12.3 fL [facility] RBC 2.49(L) 3.90 - 5.20 M/cumm [facility] MCV 92.0 81.3 - 96.4 fL [facility] MCH 29.7 27.1 - 33.3 pg [facility] MCHC 32.3 32.3 - 35.7 g/dL [facility] RDW CV 15.2(H) 11.1 - 14.9 % [facility] RDW SD 50.8(H) 35.7 - 48.1 fL [facility] NRBC abs 0.00 0.00 - 0.01 K/cumm [facility] Blood 12/07/2024 8:59 PM HAND SPRAY OPERATOR 12/07/2024 10:10 PM HAND SPRAY OPERATOR Nick Brown COMMUTATOR INSPECTOR LAB BLOOD ORDERABLES Final Result Performing Organization Address [facility] Co de Phone Number [facility] Department [place] [address] * (ABNORMAL) Phosphorus (12/07/2024 8:59 PM HAND SPRAY OPERATOR) [facility] Phosphorus, pl 2.1(L) 2.3 - 4.5 mg/dL Blood 12/07/2024 8:59 PM HAND SPRAY OPERATOR 12/07/2024 10:10 PM HAND SPRAY OPERATOR Nick Brown COMMUTATOR INSPECTOR LAB BLOOD ORDERABLES Final Result Performing Organization Address [facility] de Phone Number [facility] [employer] [place] [address] * Magnesium (12/07/2024 8:59 PM HAND SPRAY OPERATOR) [facility] Magnesium 2.0 1.4 - 2.5 mg/dL Blood 12/07/2024 8:59 PM HAND SPRAY OPERATOR 12/07/2024 10:10 PM HAND SPRAY OPERATOR Nick Brown COMMUTATOR INSPECTOR LAB BLOOD ORDERABLES Final Result Performing Organization Address [facility] [place] [address] * (ABNORMAL) Basic metabolic panel (12/07/2024 8:59 PM HAND SPRAY OPERATOR) [facility] Sodium 135 135 - 145 mmol/L Potassium, pl 3.3 3.3 - 4.9 mmol/L [facility] Chloride 96(L) 97 - 110 mmol/L [facility] CO2 31 22 - 32 mmol/L [facility] Anion gap 8 2 - 15 mmol/L [facility] BUN 9 6 - 25 mg/dL [facility] Creatinine 2.76(H) 0.60 - 1.10 mg/dL [facility] Glucose 86 70 - 199 mg/dL [facility] Comment: Interpretive Data Fasting glucose >/= 126 [...] 2022. Calcium 7.6(L) 8.5 - 10.3 mg/dL [facility] Blood 12/07/2024 8:59 PM HAND SPRAY OPERATOR 12/07/2024 10:10 PM HAND SPRAY OPERATOR Nick Brown NP LAB BLOOD ORDERABLES Final Result [facility] Department [place] [address] * (ABNORMAL) eGFR (12/06/2024 9:25 PM HAND SPRAY OPERATOR) eGFR 12(L) >=60 mL/min/1. 73 m2 Comment: [...] last reviewed 2021. Blood 12/06/2024 9:25 PM HAND SPRAY OPERATOR 12/06/2024 9:55 PM HAND SPRAY OPERATOR us Nick Brown COMMUTATOR INSPECTOR LAB BLOOD ORDERABLES Final Result [facility] Department [place] [address] * (ABNORMAL) CBC without differential (12/06/2024 9:25 PM HAND SPRAY OPERATOR) WBC 10.6(H) 3.8 - 9.9 K/cumm Hgb 8.9(L) 11.9 - 15.5 g/dL [facility] Hct 27.8(L) 35.6 - 45.5 % [facility] Plt 124(L) 150 - 400 K/cumm [facility] MPV 10.6 9.1 - 12.3 fL [facility] RBC 3.06(L) 3.90 - 5.20 M/cumm [facility] MCV 90.8 81.3 - 96.4 fL [facility] MCH 29.1 27.1 - 33.3 pg [facility] MCHC 32.0(L) 32.3 - 35.7 g/dL [facility] RDW CV 15.5(H) 11.1 - 14.9 % [facility] RDW SD 52.0(H) 35.7 - 48.1 fL [facility] NRBC abs 0.00 0.00 - 0.01 K/cumm [facility] Blood 12/06/2024 9:25 PM HAND SPRAY OPERATOR 12/06/2024 9:55 PM HAND SPRAY OPERATOR Nick Brown COMMUTATOR INSPECTOR LAB BLOOD ORDERABLES Final Result Performing Organization Address City/[facility] Co de Phone Number [facility] [place] [address] * Phosphorus (12/06/2024 9:25 PM HAND SPRAY OPERATOR) [facility] Phosphorus, pl 3.4 2.3 - 4.5 mg/dL Blood 12/06/2024 9:25 PM HAND SPRAY OPERATOR 12/06/2024 9:55 PM HAND SPRAY OPERATOR Nick Brown NP LAB BLOOD ORDERABLES Final Result Performing Organization Address [facility] Co de Phone Number [facility] Department [place] [address] * Magnesium (12/06/2024 9:25 PM HAND SPRAY OPERATOR) [facility] Magnesium 2.2 1.4 - 2.5 mg/dL Blood 12/06/2024 9:25 PM HAND SPRAY OPERATOR 12/06/2024 9:55 PM HAND SPRAY OPERATOR Nick Brown NP LAB BLOOD ORDERABLES Final Result Performing Organization Address [facility] de Phone Number [facility] Department [place] [address] * (ABNORMAL) Basic metabolic panel (12/06/2024 9:25 PM HAND SPRAY OPERATOR) [facility] Sodium 133(L) 135 - 145 mmol/L Potassium, pl 3.6 3.3 - 4.9 mmol/L [facility] Chloride 93(L) 97 - 110 mmol/L [facility] CO2 29 22 - 32 mmol/L [facility] Anion gap 11 2 - 15 mmol/L [facility] BUN 18 6 - 25 mg/dL [facility] Creatinine 4.36(H) 0.60 - 1.10 mg/dL [facility] Glucose 125 70 - 199 mg/dL [facility] Comment: Interpretive Data Fasting glucose >/= 126 [...] 2022. Calcium 8.1(L) 8.5 - 10.3 mg/dL [facility] Blood 12/06/2024 9:25 PM HAND SPRAY OPERATOR 12/06/2024 9:55 PM HAND SPRAY OPERATOR us Nick Brown COMMUTATOR INSPECTOR LAB BLOOD ORDERABLES Final Result [facility] Department [place] [address] * TRANSTHORACIC ECHO (TTE) COMPLETE W DOPPLER/CF W CONTRAST (12/06/2024 4:48 PM HAND SPRAY OPERATOR) LV EF % CONS SCIMAGE Anatomical Region Laterality Modality Ultrasound 12/06/2024 3:11 PM HAND SPRAY OPERATOR Narrative 12/06/2024 5:41 PM HAND SPRAY OPERATOR [facility] [place] [place] [address] Transthoracic Echocardiographic Report Patient Name: QUIN MILLER J : 1970 (54y 4m) Gender: F Study Date: 12/06/2024 03:11:50 PM Ht(Inch): 63 Wt(Lb): 136.02 BSA: 1.66 Healthcare Facility Administrator: Ludy Dickerson [facility] Location: [id number] Order Provider: NICK BROWN Heart Rate: 81 BMI: 24.09 BP: 130 / 76 Quality: The study images were of technically good quality. Ref Provider: NICK BROWN PROCEDURES: Echocardiographic Report: ([id number], [id number]) Transthoracic complete echo with strain imaging and [...] By: Andie Lutz MD 12/06/2024 5:40:59 PM HAND SPRAY OPERATOR Electronically Signed By: Andie Lutz MD 12/06/2024 5:40:59 PM HAND SPRAY OPERATOR Procedure Note Andie Lutz, DO - 12/06/2024 [facility] [place] [address] Transthoracic Echocardiographic Report Patient Name: QUIN MILLER J : 1970 (54y 4m) Gender: F Study Date: 12/06/2024 03:11:50 PM Ht(Inch): 63 Wt(Lb): 136.02 BSA: 1.66 Healthcare Facility Administrator: Ludy Dickerson [facility] Location: [id number] Order Provider:NICK BROWN Heart Rate: 81 BMI: 24.09 BP: 130 / 76 Quality: The study images were oftechnically good quality. Ref Provider: NICK BROWN PROCEDURES: Echocardiographic Report: ([id number], [id number]) Transthoracic complete echo withstrain imaging and contrast, [...] [ 2.5 - 4.2 ] MV Decel Mssd992.05 msec [ 104.00 - 258.00 ] TAPSE [...] By: Andie Lutz MD 12/06/2024 5:40:59 PM HAND SPRAY OPERATOR Electronically Signed By: Andie Lutz MD 12/06/2024 5:40:59 PM HAND SPRAY OPERATOR Nick Brown NP CV ECHO PROCEDURES Final R esult * XR Chest Pa Lateral 2 Views (12/06/2024 12:28 PM HAND SPRAY OPERATOR) Anatomical Region Laterality Modality Body, Chest N/A Computed Radiogr aphy 12/06/2024 12:3 1 PM HAND SPRAY OPERATOR Impressions 12/06/2024 12:31 PM HAND SPRAY OPERATOR The current study is compared with the [...] left pneumothorax. Stable cardiomegaly. Electronically signed by: Pramdo Mcgraw MD, PHD Narrative 12/06/2024 12:31 PM HAND SPRAY OPERATOR EXAMINATION: 2 view chest radiograph Procedure Note [...] Electronically signed by: Pramod Mcgraw MD, PHD Nick Brown COMMUTATOR INSPECTOR IMG XR PROCEDURES Final Re sult * POCT glucose (12/06/2024 7:58 AM HAND SPRAY OPERATOR) Glucose, POC 112 70 - 199 mg/dL Blood 12/06/2024 7:58 AM HAND SPRAY OPERATOR 12/06/2024 7:58 AM HAND SPRAY OPERATOR Vj Oreilly MD LAB POCT ORDERABLES - DEV ICE Final Result [facility] Department [place] [address] * POCT glucose (12/05/2024 9:03 PM HAND SPRAY OPERATOR) Glucose, POC 131 70 - 199 mg/dL Blood 12/05/2024 9:03 PM HAND SPRAY OPERATOR 12/05/2024 9:03 PM HAND SPRAY OPERATOR Vj Oreilly MD LAB POCT ORDERABLES - DEV ICE Final Result Performing Organization Address City/[facility] Co de Phone Number [facility] Department [place] [address] * (ABNORMAL) eGFR (12/05/2024 7:45 PM HAND SPRAY OPERATOR) Pathologist [facility] eGFR 22(L) >=60 mL/min/1. 73 m2 Comment: [...] last reviewed 2021. Blood 12/05/2024 7:45 PM HAND SPRAY OPERATOR 12/05/2024 8:28 PM HAND SPRAY OPERATOR us Nick Brown NP LAB BLOOD ORDERABLES Final Result Performing Organization Address City/[facility]/ZIP Co de Phone Number [facility] Department [place] [address] * (ABNORMAL) Differential, auto (12/05/2024 7:45 PM HAND SPRAY OPERATOR) Neutrophil abs 11.3(H) 1.5 - 6.5 K/cumm Imm gran abs 0.1 0.0 - 0.1 K/cumm [facility] Lymphocyte abs 0.7(L) 0.8 - 3.3 K/cumm [facility] Monocyte abs 0.9(H) 0.2 - 0.8 K/cumm [facility] Eosinophil abs 0.1 0.0 - 0.5 K/cumm [facility] Basophil abs 0.0 0.0 - 0.1 K/cumm [facility] Neutrophil pct 86.1 % [facility] Comment: Interpretive Data Percent cell count reference ranges are not reported, since discordance with absolute values may lead to misinterpretation of CBC data. Current Interpretive Data was last revised on 2018. Imm gran pct 0.4 % [facility] Comment: Interpretive Data Percent cell count reference ranges are not reported, since discordance with absolute values may lead to misinterpretation of CBC data. Current Interpretive Data was last revised on 2018. Lymphocyte pct 5.3 % [facility] Comment: Interpretive Data Percent cell count reference ranges are not reported, since discordance with absolute values may lead to misinterpretation of CBC data. Current Interpretive Data was last revised on 2018. Monocyte pct 7.1 % [facility] Comment: Interpretive Data Percent cell count reference ranges are not reported, since discordance with absolute values may lead to misinterpretation of CBC data. Current Interpretive Data was last revised on 2018. Eosinophil pct 0.9 % [facility] Comment: Interpretive Data Percent cell count reference ranges are not reported, since discordance with absolute values may lead to misinterpretation of CBC data. Current Interpretive Data was last revised on 2018. Basophil pct 0.2 % [facility] Comment: Interpretive Data Percent cell count reference ranges are not reported, since discordance with absolute values may lead to misinterpretation of CBC data. Current Interpretive Data was last revised on 2018. Blood 12/05/2024 7:45 PM HAND SPRAY OPERATOR 12/05/2024 8:31 PM HAND SPRAY OPERATOR Vj Oreilly MD LAB BLOOD ORDERABLES Sarah l Result Performing Organization Address [facility]/ZIP Co de Phone Number [facility] [employer] [place] [address] * (ABNORMAL) CBC with auto differential (12/05/2024 7:45 PM HAND SPRAY OPERATOR) WBC 13.1(H) 3.8 - 9.9 K/cumm Hgb 10.2(L) 11.9 - 15.5 g/dL [facility] Hct 30.9(L) 35.6 - 45.5 % [facility] Plt 123(L) 150 - 400 K/cumm [facility] MPV 10.8 9.1 - 12.3 fL [facility] RBC 3.39(L) 3.90 - 5.20 M/cumm [facility] MCV 91.2 81.3 - 96.4 fL [facility] MCH 30.1 27.1 - 33.3 pg [facility] MCHC 33.0 32.3 - 35.7 g/dL [facility] RDW CV 16.1(H) 11.1 - 14.9 % [facility] RDW SD 52.9(H) 35.7 - 48.1 fL [facility] NRBC abs 0.00 0.00 - 0.01 K/cumm [facility] Blood 12/05/2024 7:45 PM HAND SPRAY OPERATOR 12/05/2024 8:31 PM HAND SPRAY OPERATOR Vj Oreilly MD LAB BLOOD ORDERABLES Sarah l Result Performing Organization Address City/[facility]/ZIP Co de Phone Number [facility] Department of [employer] [place], [place] [id number] * (ABNORMAL) CBC without differential (12/05/2024 7:45 PM HAND SPRAY OPERATOR) WBC 13.1(H) 3.8 - 9.9 K/cumm Hgb 10.2(L) 11.9 - 15.5 g/dL [facility] Hct 30.9(L) 35.6 - 45.5 % [facility] Plt 123(L) 150 - 400 K/cumm [facility] MPV 10.8 9.1 - 12.3 fL [facility] RBC 3.39(L) 3.90 - 5.20 M/cumm [facility] MCV 91.2 81.3 - 96.4 fL [facility] MCH 30.1 27.1 - 33.3 pg [facility] MCHC 33.0 32.3 - 35.7 g/dL [facility] RDW CV 16.1(H) 11.1 - 14.9 % [facility] RDW SD 52.9(H) 35.7 - 48.1 fL [facility] NRBC abs 0.00 0.00 - 0.01 K/cumm [facility] Blood 12/05/2024 7:45 PM HAND SPRAY OPERATOR 12/05/2024 8:28 PM HAND SPRAY OPERATOR Nick Brown COMMUTATOR INSPECTOR LAB BLOOD ORDERABLES Final Result Performing Organization Address City/[facility]/ZIP Co de Phone Number [facility] Department of [employer] [place] [address] * Phosphorus (12/05/2024 7:45 PM HAND SPRAY OPERATOR) [facility] Phosphorus, pl 3.7 2.3 - 4.5 mg/dL Blood 12/05/2024 7:45 PM HAND SPRAY OPERATOR 12/05/2024 8:28 PM HAND SPRAY OPERATOR Nick Brown COMMUTATOR INSPECTOR LAB BLOOD ORDERABLES Final Result [facility] [place] [address] * Magnesium (12/05/2024 7:45 PM HAND SPRAY OPERATOR) [facility] Magnesium 1.9 1.4 - 2.5 mg/dL Blood 12/05/2024 7:45 PM HAND SPRAY OPERATOR 12/05/2024 8:28 PM HAND SPRAY OPERATOR Nick Brown COMMUTATOR INSPECTOR LAB BLOOD ORDERABLES Final Result Performing Organization Address City/[facility]/ZIP Co de Phone Number [facility] [place] [address] * (ABNORMAL) Hepatic function panel (12/05/2024 7:45 PM HAND SPRAY OPERATOR) Bilirubin, total 0.5 0.1 - 1.2 mg/dL Bilirubin, direct <0.2 0.1 - 0.3 mg/dL [facility] Protein, pl 7.6 6.5 - 8.5 g/dL [facility] Albumin 2.6(L) 3.5 - 5.0 g/dL [facility] Alk phos 70 40 - 130 Units/L [facility] ALT 9 7 - 45 Units/L [facility] AST 47(H) 10 - 45 Units/L [facility] Blood 12/05/2024 7:45 PM HAND SPRAY OPERATOR 12/05/2024 8:28 PM HAND SPRAY OPERATOR Vj Oreilly MD LAB BLOOD ORDERABLES Sarah l Result Performing Organization Address [facility] Co de Phone Number [facility] Department [place] [address] * (ABNORMAL) Basic metabolic panel (12/05/2024 7:45 PM HAND SPRAY OPERATOR) Pathologist [facility] Sodium 134(L) 135 - 145 mmol/L Potassium, pl 4.4 3.3 - 4.9 mmol/L [facility] Chloride 96(L) 97 - 110 mmol/L [facility] CO2 30 22 - 32 mmol/L [facility] Anion gap 8 2 - 15 mmol/L [facility] BUN 8 6 - 25 mg/dL [facility] Creatinine 2.55(H) 0.60 - 1.10 mg/dL [facility] Glucose 130 70 - 199 mg/dL [facility] Comment: Interpretive Data Fasting glucose >/= 126 [...] 2022. Calcium 8.2(L) 8.5 - 10.3 mg/dL [facility] Blood 12/05/2024 7:45 PM HAND SPRAY OPERATOR 12/05/2024 8:28 PM HAND SPRAY OPERATOR Nick Brown NP LAB BLOOD ORDERABLES Final Result Performing Organization Address [facility] Co de Phone Number [facility] [employer] [place] [address] * POCT glucose (12/05/2024 7:39 PM HAND SPRAY OPERATOR) Glucose, POC 135 70 - 199 mg/dL Blood 12/05/2024 7:39 PM HAND SPRAY OPERATOR 12/05/2024 7:39 PM HAND SPRAY OPERATOR Vj Oreilly MD LAB POCT ORDERABLES - DEV ICE Final Result Performing Organization Address [facility] Co de Phone Number [facility] Department of [employer] [place] [address] * POCT glucose (12/05/2024 4:43 PM HAND SPRAY OPERATOR) Glucose, POC 109 70 - 199 mg/dL Blood 12/05/2024 4:43 PM HAND SPRAY OPERATOR 12/05/2024 4:43 PM HAND SPRAY OPERATOR Vj Oreilly MD LAB POCT ORDERABLES - DEV ICE Final Result Performing Organization Address [facility] Co de Phone Number [facility] Department of [employer] [place] [address] * (ABNORMAL) Potassium, whole blood (12/05/2024 11:49 AM HAND SPRAY OPERATOR) Potassium, bld 2.9(L) 3.3 - 4.9 mmol/L Blood 12/05/2024 11:4 9 AM HAND SPRAY OPERATOR 12/05/2024 12:02 PM HAND SPRAY OPERATOR us Edda Segal NP LAB BLOOD ORDERABLE S Final Result Performing Organization Address [facility] Co de Phone Number [facility] Department [place] [address] * POCT glucose (12/05/2024 11:48 AM HAND SPRAY OPERATOR) Glucose, POC 94 70 - 199 mg/dL Blood 12/05/2024 11:4 8 AM HAND SPRAY OPERATOR 12/05/2024 11:48 AM HAND SPRAY OPERATOR Vj Oreilly MD LAB POCT ORDERABLES - DEV ICE Final Result Performing Organization Address [facility] Co de Phone Number [facility] Department [place] [address] * Critical Care (12/05/2024 11:39 AM HAND SPRAY OPERATOR) Narrative Sloan Rivas MD - 12/05/2024 11:39 AM HAND SPRAY OPERATOR Josef Cardenas NP 12/05/2024 2:14 PM Critical [...] plan with the patient's team and other medical/vmware consultant staff. This time was in addition to and separate from care provided by other practitioners on this day of service. I spent time reviewing and interpreting data from bedside monitors, laboratory results, and imaging, I spent time discussing the management of this critically ill patient with consultants and the medical staff and I spent time documenting in the medical record Josef Cardenas NP IN CLINIC/BEDSIDE ORDERABL ES Final Result * POCT glucose (12/05/2024 7:39 AM HAND SPRAY OPERATOR) Glucose, POC 121 70 - 199 mg/dL Blood 12/05/2024 7:39 AM HAND SPRAY OPERATOR 12/05/2024 7:39 AM HAND SPRAY OPERATOR Result [facility] Vj Oreilly MD LAB POCT ORDERABLES - DEV ICE Final Result [facility] Department [place] [address] * (ABNORMAL) Potassium, whole blood (12/05/2024 6:36 AM HAND SPRAY OPERATOR) Pathologist [facility] [place] Potassium, bld 5.3(H) 3.3 - 4.9 mmol/L Blood 12/05/2024 6:36 AM HAND SPRAY OPERATOR 12/05/2024 6:42 AM HAND SPRAY OPERATOR Result [facility] Josef Cardenas NP LAB BLOOD ORDERABLES Final Result Performing Organization Address [facility]/ZIP Co de Phone Number [facility] Department [place] [address] * Tacrolimus level trough (12/05/2024 6:36 AM HAND SPRAY OPERATOR) Tacrolimus trough 1.5 ng/mL Comment: Interpretive Data Testing performed by liquid chromatography-tandem mass spectrometry. Therapeutic concentrations vary depending on type of transplanted organ and time elapsed since transplant. Typical trough concentrations range from 5-15 ng/mL. This test was developed and its performance characteristics determined by the [facility] consistent with CLIA requirements. This test has not been cleared or approved by the [place] Food and Drug administration. Current interpretive data last reviewed 2020. Blood 12/05/2024 6:36 AM HAND SPRAY OPERATOR 12/05/2024 6:47 AM HAND SPRAY OPERATOR us Emely Berry COMMUTATOR INSPECTOR LAB BLOOD ORDER CHERI Final Result Performing Organization Address [facility] Co de Phone Number [facility] [employer] [place] [address] * POCT glucose (12/05/2024 4:24 AM HAND SPRAY OPERATOR) [facility] Glucose, POC 116 70 - 199 mg/dL Blood 12/05/2024 4:24 AM HAND SPRAY OPERATOR 12/05/2024 4:24 AM HAND SPRAY OPERATOR us Vj Oreilly MD LAB POCT ORDERABLES - DEV ICE Final Result Performing Organization Address [facility] de Phone Number [facility] [employer] [place] [address] * (ABNORMAL) Potassium, whole blood (12/05/2024 1:25 AM HAND SPRAY OPERATOR) [facility] Potassium, bld 5.6(H) 3.3 - 4.9 mmol/L Blood 12/05/2024 1:25 AM HAND SPRAY OPERATOR 12/05/2024 1:34 AM HAND SPRAY OPERATOR us Nica Lozoya COMMUTATOR INSPECTOR LAB BLOOD ORDERABLES Fi nal Result Performing Organization Address [facility] de Phone Number [facility] [employer] [place] [address] * (ABNORMAL) eGFR (12/05/2024 1:25 AM HAND SPRAY OPERATOR) [facility] eGFR 13(L) >=60 mL/min/1. 73 m2 Comment: [...] last reviewed 2021. Blood 12/05/2024 1:25 AM HAND SPRAY OPERATOR 12/05/2024 1:39 AM HAND SPRAY OPERATOR us Edda Segal NP LAB BLOOD ORDERABLE S Final Result Performing Organization Address [facility]/ZIP Co de Phone Number [facility] Department [place] [address] * POCT glucose (12/05/2024 1:25 AM HAND SPRAY OPERATOR) Glucose, POC 124 70 - 199 mg/dL Blood 12/05/2024 1:25 AM HAND SPRAY OPERATOR 12/05/2024 1:25 AM HAND SPRAY OPERATOR Vj Oreilly MD LAB POCT ORDERABLES - DEV ICE Final Result Performing Organization Address [facility]/ZIP Co de Phone Number [facility] Department [place] [address] * (ABNORMAL) CBC without differential (12/05/2024 1:25 AM HAND SPRAY OPERATOR) WBC 14.2(H) 3.8 - 9.9 K/cumm Hgb 10.4(L) 11.9 - 15.5 g/dL [facility] Hct 31.5(L) 35.6 - 45.5 % [facility] Plt 141(L) 150 - 400 K/cumm [facility] MPV 10.6 9.1 - 12.3 fL [facility] RBC 3.54(L) 3.90 - 5.20 M/cumm [facility] MCV 89.0 81.3 - 96.4 fL [facility] MCH 29.4 27.1 - 33.3 pg [facility] MCHC 33.0 32.3 - 35.7 g/dL [facility] RDW CV 16.2(H) 11.1 - 14.9 % [facility] RDW SD 53.3(H) 35.7 - 48.1 fL [facility] NRBC abs 0.00 0.00 - 0.01 K/cumm [facility] Blood 12/05/2024 1:25 AM HAND SPRAY OPERATOR 12/05/2024 1:39 AM HAND SPRAY OPERATOR Edda Segal COMMUTATOR INSPECTOR LAB BLOOD ORDERABLE S Final Result Performing Organization Address [facility]/ZIP Co de Phone Number [facility] Department of [employer] [place] [address] * Type and screen (12/05/2024 1:25 AM HAND SPRAY OPERATOR) ABO Rh B Positive Radha, indirect Negative [facility] Blood 12/05/2024 1:25 AM HAND SPRAY OPERATOR 12/05/2024 1:38 AM HAND SPRAY OPERATOR Narrative [facility] - 12/05/2024 3:44 AM HAND SPRAY OPERATOR Has the patient had Daratumumab or Isatuximab in the past 6 months?->Unknown Edda Segal NP LAB BLOOD BANK TEST ORDERABLES Final Result [facility] [employer] [place] [address] * Phosphorus (12/05/2024 1:25 AM HAND SPRAY OPERATOR) Phosphorus, pl 3.1 2.3 - 4.5 mg/dL Blood 12/05/2024 1:25 AM HAND SPRAY OPERATOR 12/05/2024 1:39 AM HAND SPRAY OPERATOR Edda Segal COMMUTATOR INSPECTOR LAB BLOOD ORDERABLE S Final Result Performing Organization Address [facility] Co de Phone Number [facility] [place] [address] * (ABNORMAL) Magnesium (12/05/2024 1:25 AM HAND SPRAY OPERATOR) Pathologist [facility] [place] Magnesium 2.7(H) 1.4 - 2.5 mg/dL Blood 12/05/2024 1:25 AM HAND SPRAY OPERATOR 12/05/2024 1:39 AM HAND SPRAY OPERATOR Edda Segal LAB BLOOD ORDERABLE S Final Result Performing Organization Address [facility] de Phone Number [facility] [place] [address] * (ABNORMAL) Basic metabolic panel (12/05/2024 1:25 AM HAND SPRAY OPERATOR) Sodium 133(L) 135 - 145 mmol/L Potassium, pl 5.7(H) 3.3 - 4.9 mmol/L [facility] Chloride 102 97 - 110 mmol/L [facility] CO2 26 22 - 32 mmol/L [facility] Anion gap 5 2 - 15 mmol/L [facility] BUN 13 6 - 25 mg/dL [facility] Creatinine 3.96(H) 0.60 - 1.10 mg/dL [facility] Glucose 131 70 - 199 mg/dL [facility] Comment: Interpretive Data Fasting glucose >/= 126 [...] 2022. Calcium 8.7 8.5 - 10.3 mg/dL [facility] Blood 12/05/2024 1:25 AM HAND SPRAY OPERATOR 12/05/2024 1:39 AM HAND SPRAY OPERATOR us Edda Segal COMMUTATOR INSPECTOR LAB BLOOD ORDERABLE S Final Result Performing Organization Address [facility]/ZIP Co de Phone Number [facility] Department [place] [address] * POCT glucose (12/04/2024 8:24 PM HAND SPRAY OPERATOR) Glucose, POC 117 70 - 199 mg/dL Blood 12/04/2024 8:24 PM HAND SPRAY OPERATOR 12/04/2024 8:24 PM HAND SPRAY OPERATOR Vj Oreilly MD LAB POCT ORDERABLES - DEV ICE Final Result Performing Organization Address [facility] Co de Phone Number [facility] Department [place] [address] * XR Chest 1 View - in PM (12/04/2024 7:41 PM HAND SPRAY OPERATOR) Anatomical Region Laterality Modality Body, Chest N/A Computed Radiogr aphy 12/05/2024 9:03 AM HAND SPRAY OPERATOR Impressions 12/05/2024 10:30 AM HAND SPRAY OPERATOR Comparison is made to chest radiograph of [...] and agrees with it. Electronically signed by: Radha Villarreal 12/05/2024 10:30 AM HAND SPRAY OPERATOR EXAMINATION: 1 view chest radiograph Procedure Note [...] by: Enzo Jean-Baptiste M.D. us Edda Segal NP IMG XR PROCEDURES F inal Result * POCT glucose (12/04/2024 7:21 PM HAND SPRAY OPERATOR) Glucose, POC 141 70 - 199 mg/dL Blood 12/04/2024 7:21 PM HAND SPRAY OPERATOR 12/04/2024 7:21 PM HAND SPRAY OPERATOR us Vj Oreilly MD LAB POCT ORDERABLES - DEV ICE Final Result [facility] [place] [address] * Critical Care (12/04/2024 6:30 PM HAND SPRAY OPERATOR) Narrative Sloan Rivas MD - 12/04/2024 6:30 PM HAND SPRAY OPERATOR Emely Berry NP 12/05/2024 5:51 AM Critical [...] plan with the ICU team and other medical/vmware consultant staff, making frequent assessments and decisions [...] (ABNORMAL) Potassium, whole blood (12/04/2024 6:13 PM HAND SPRAY OPERATOR) Potassium, bld 5.1(H) 3.3 - 4.9 mmol/L Blood 12/04/2024 6:13 PM HAND SPRAY OPERATOR 12/04/2024 6:48 PM HAND SPRAY OPERATOR us Nica Lozoya NP LAB BLOOD ORDERABLES Fi nal Result [facility] [place] [address] * POCT glucose (12/04/2024 6:13 PM HAND SPRAY OPERATOR) Glucose, POC 192 70 - 199 mg/dL Blood 12/04/2024 6:13 PM HAND SPRAY OPERATOR 12/04/2024 6:13 PM HAND SPRAY OPERATOR us Vj Oreilly MD LAB POCT ORDERABLES - DEV ICE Final Result Performing Organization Address [facility] de Phone Number [facility] [place] [address] * Infection Prevention Leidy auris PCR, surveillance Axilla/Groin (12/04/2024 5:39 PM HAND SPRAY OPERATOR) Pathologist [facility] [place] Leidy auris DNA Not Detected Not Detected [facility] Comment: Interpretive Data Testing performed by [facility] Infectious Disease Laboratory using the Jannie dawson 68[address] Liedy auris assay. This assay detects DNA from Leidy auris using Real-Time PCR. This assay is laboratory developed and is not cleared by the [facility] Food and Drug Administration. The performance characteristics have been verified by the [facility] Infectious Disease [facility]. Axilla/Groin 12/04/2024 5:39 PM HAND SPRAY OPERATOR 12/04/2024 6:33 PM HAND SPRAY OPERATOR Paco Hunter MD LAB MICROBIOLOGY - GENERAL ORDER CHERI Final Result Performing Organization Address [facility] de Phone Number [facility] [employer] [place] [address] [facility] * POCT glucose (12/04/2024 3:47 PM HAND SPRAY OPERATOR) Pathologist [facility] [place] Glucose, POC 182 70 - 199 mg/dL Blood 12/04/2024 3:47 PM HAND SPRAY OPERATOR 12/04/2024 3:47 PM HAND SPRAY OPERATOR Vj Oreilly MD LAB POCT ORDERABLES - DEV ICE Final Result Performing Organization Address [facility] Co de Phone Number [facility] [employer] [place] [address] * Oxyhemoglobin, central venous (12/04/2024 2:15 PM HAND SPRAY OPERATOR) Pathologist [facility] [place] Oxyhemoglobin, CV 90.6 % Comment: Interpretive Data No reference range established. Current interpretive data was last revised 2020. Blood 12/04/2024 2:15 PM HAND SPRAY OPERATOR 12/04/2024 2:22 PM HAND SPRAY OPERATOR us [place]da Segal NP LAB BLOOD ORDERABLE S Final Result Performing Organization Address [facility] Co de Phone Number [facility] [place] [address] * (ABNORMAL) eGFR (12/04/2024 2:15 PM HAND SPRAY OPERATOR) eGFR 17(L) >=60 mL/min/1. 73 m2 Comment: [...] last reviewed 2021. Blood 12/04/2024 2:15 PM HAND SPRAY OPERATOR 12/04/2024 2:34 PM HAND SPRAY OPERATOR us Vj Oreilly MD LAB BLOOD ORDERABLES Sarah l Result Performing Organization Address [facility]/ZIP Co de Phone Number [facility] [employer] [place] [address] * (ABNORMAL) aPTT (12/04/2024 2:15 PM HAND SPRAY OPERATOR) aPTT 44(H) 28 - 38 sec Comment: Interpretive Data Heparin therapeutic range: 66.0 - 100.0 seconds. Range based on correlation with therapeutic heparin activity range of 0.3 - 0.7 Units/mL. Current interpretive data was last revised on 2023. Blood 12/04/2024 2:15 PM HAND SPRAY OPERATOR 12/04/2024 2:24 PM HAND SPRAY OPERATOR Result [facility] Vj Oreilly MD LAB BLOOD ORDERABLES Sarah l Result Performing Organization Address [facility] de Phone Number [facility] [place] [address] * (ABNORMAL) Protime-INR (12/04/2024 2:15 PM HAND SPRAY OPERATOR) Pathologist [facility] [place] PT 15.1(H) 9.7 - 13.0 sec INR 1.39(H) 0.90 - 1.20 [facility] Comment: Interpretive data Oral anticoagulant therapeutic ranges: Venous thromboembolism prophylaxis or treatment: 2.0-3.0 CARDIOLOGY Standard range: 2.0-3.0 High-intensity range: 2.5-3.5 Refer to indication-specific guidelines for appropriate target ranges for prosthetic heart valve replacement. Current interpretive data was last revised on 2019. Blood 12/04/2024 2:15 PM HAND SPRAY OPERATOR 12/04/2024 2:24 PM HAND SPRAY OPERATOR Result [facility] Vj Oreilly MD LAB BLOOD ORDERABLES Sarah l Result Performing Organization Address [facility] de Phone Number [facility] [place] [address] * (ABNORMAL) CBC without differential (12/04/2024 2:15 PM HAND SPRAY OPERATOR) Pathologist [facility] WBC 9.3 3.8 - 9.9 K/cumm Hgb 10.5(L) 11.9 - 15.5 g/dL [facility] Hct 32.0(L) 35.6 - 45.5 % [facility] Plt 122(L) 150 - 400 K/cumm [facility] MPV 10.5 9.1 - 12.3 fL [facility] RBC 3.48(L) 3.90 - 5.20 M/cumm [facility] MCV 92.0 81.3 - 96.4 fL [facility] MCH 30.2 27.1 - 33.3 pg [facility] MCHC 32.8 32.3 - 35.7 g/dL [facility] RDW CV 16.3(H) 11.1 - 14.9 % [facility] RDW SD 54.7(H) 35.7 - 48.1 fL [facility] NRBC abs 0.00 0.00 - 0.01 K/cumm [facility] Blood 12/04/2024 2:15 PM HAND SPRAY OPERATOR 12/04/2024 2:34 PM HAND SPRAY OPERATOR Vj Oreilly MD LAB BLOOD ORDERABLES Sarah l Result Performing Organization Address [facility] Co de Phone Number [facility] [place] [address] * Type and screen (12/04/2024 2:15 PM HAND SPRAY OPERATOR) ABO Rh B Positive Radha, indirect Negative [facility] Blood 12/04/2024 2:15 PM HAND SPRAY OPERATOR 12/04/2024 2:28 PM HAND SPRAY OPERATOR Narrative [facility] - 12/04/2024 3:27 PM HAND SPRAY OPERATOR Has the patient had Daratumumab or Isatuximab in the past 6 months?->Unknown Vj Oreilly MD LAB BLOOD BANK TEST ORDER CHERI Final Result Performing Organization Address [facility]/ZIP Co de Phone Number [facility] [employer] [place] [address] * Triglycerides (12/04/2024 2:15 PM HAND SPRAY OPERATOR) Triglycerides 76 <=149 mg/dL Comment: Interpretive Data [...] revised on 2018. Blood 12/04/2024 2:15 PM HAND SPRAY OPERATOR 12/04/2024 2:22 PM HAND SPRAY OPERATOR Vj Oreilly MD LAB BLOOD ORDERABLES Sarah l Result Performing Organization Address [facility] Co de Phone Number [facility] Department [place] [address] * (ABNORMAL) Magnesium (12/04/2024 2:15 PM HAND SPRAY OPERATOR) Pathologist [facility] Magnesium 2.6(H) 1.4 - 2.5 mg/dL Blood 12/04/2024 2:15 PM HAND SPRAY OPERATOR 12/04/2024 2:22 PM HAND SPRAY OPERATOR Vj Oreilly MD LAB BLOOD ORDERABLES Sarah l Result Performing Organization Address [facility] Co de Phone Number [facility] Department [place] [address] * (ABNORMAL) Basic metabolic panel (12/04/2024 2:15 PM HAND SPRAY OPERATOR) Sodium 134(L) 135 - 145 mmol/L Potassium, pl 5.1(H) 3.3 - 4.9 mmol/L [facility] Comment:Hemolyzed; Potassium value may be falsely elevated by as much as 0.3-0.5 mmol/L. Suggest redraw and reanalysis. Chloride 104 97 - 110 mmol/L [facility] CO2 26 22 - 32 mmol/L [facility] Anion gap 4 2 - 15 mmol/L [facility] BUN 9 6 - 25 mg/dL [facility] Creatinine 3.19(H) 0.60 - 1.10 mg/dL [facility] Glucose 150 70 - 199 mg/dL [facility] Comment: Interpretive Data Fasting glucose >/= 126 [...] 2022. Calcium 8.9 8.5 - 10.3 mg/dL [facility] Blood 12/04/2024 2:15 PM HAND SPRAY OPERATOR 12/04/2024 2:22 PM HAND SPRAY OPERATOR us Vj Oreilly MD LAB BLOOD ORDERABLES Sarah ley Result [facility] Department [place] [address] * (ABNORMAL) POC Blood Gas and Chemistries, Arterial - (12/04/2024 2:10 PM HAND SPRAY OPERATOR) pH, Art POC 7.41 7.35 - 7.45 pCO2, Art POC 40 35 - 45 mmHg [facility] pO2, Art POC 135(H) 83 - 108 mmHg [facility] Na, POC 134(L) 135 - 145 mmol/L [facility] K POC 5.2(H) 3.3 - 4.9 mmol/L [facility] Comment: Interpretive Data Not all point of care methods assess for hemolysis. Confirm with instrument and retest K+ if not consistent with clinical signs and symptoms. Current Interpretive Data was last revised on 2024. Cl, POC 107 97 - 110 mmol/L [facility] Ionized Ca, POC 5.34(H) 4.50 - 5.10 mg/dL [facility] Glucose, POC 149 70 - 199 mg/dL [facility] Lactate, POC 1.4 0.7 - 2.0 mmol/L [facility] SO2 (yousuf) arterial 99(H) 90 - 95 % [facility] Base excess, POC 0.7 mmol/L [facility] HCO3, Art POC 25 20 - 30 mmol/L [facility] Hct, POC 33.0(L) 36.3 - 45.3 % [facility] Total Hb, POC 11.0(L) 11.9 - 15.5 g/dL [facility] Blood 12/04/2024 2:10 PM HAND SPRAY OPERATOR 12/04/2024 2:10 PM HAND SPRAY OPERATOR us Vj Oreilly MD LAB POCT ORDERABLES - DEV ICE Final Result [facility] Department [place] [address] * Critical Care (12/04/2024 2:09 PM HAND SPRAY OPERATOR) Narrative Sloan Rivas MD - 12/04/2024 2:09 PM HAND SPRAY OPERATOR Sloan Rivas MD 01/10/2025 11:05 PM Critical Care Performed by: Edda Segal NP Authorized by: Edda Segal NP CRITICAL CARE: Team: [facility] Shift: AM Level of Billing: Critical [...] plan with the ICU team and other medical/vmware consultant staff, making frequent assessments and decisions [...] XR Chest 1 View (12/04/2024 2:05 PM HAND SPRAY OPERATOR) Anatomical Region Laterality Modality Body, Chest N/A Computed Radiogr aphy 12/04/2024 3:23 PM HAND SPRAY OPERATOR Impressions 12/04/2024 3:50 PM HAND SPRAY OPERATOR Comparison is made to radiograph dated 11/25/2024 [...] Mulu Mendoza M.D. Narrative 12/04/2024 3:50 PM HAND SPRAY OPERATOR EXAMINATION: 1 view chest radiograph Procedure Note [...] it. Electronically signed by: Mulu Mendoza M.D. us Vj Oreilly MD IMG XR PROCEDURES Final R esult * (ABNORMAL) POCT hemoglobin, hematocrit and platelet count (12/04/2024 11:53 AM HAND SPRAY OPERATOR) [facility] Hgb, POC 8.4(L) 11.9 - 15.5 g/dL Hematocrit POC 26.0(L) 35.6 - 45.5 % [facility] Platelet POC 84(L) 150 - 400 K/cumm [facility] Blood 12/04/2024 11:5 3 AM HAND SPRAY OPERATOR 12/04/2024 11:53 AM HAND SPRAY OPERATOR Vj Oreilly MD LAB POCT ORDERABLES - DEV ICE Final Result Performing Organization Address [facility]/ZIP Co de Phone Number [facility] Department of [employer] [place] [address] * (ABNORMAL) POCT prothrombin time (12/04/2024 11:52 AM HAND SPRAY OPERATOR) [facility] PT, POC 23.8(H) 11.7 - 16.6 sec INR, POC 1.8(H) 0.9 - 1.2 [facility] Blood 12/04/2024 11:5 2 AM HAND SPRAY OPERATOR 12/04/2024 11:52 AM HAND SPRAY OPERATOR Vj Oreilly MD LAB POCT ORDERABLES - DEV ICE Final Result [facility] [employer] [place] [address] * POCT Partial thromboplastin time (PTT) (12/04/2024 11:52 AM HAND SPRAY OPERATOR) [facility] APTT, POC 43.6 32.5 - 46.1 sec Blood 12/04/2024 11:5 2 AM HAND SPRAY OPERATOR 12/04/2024 11:52 AM HAND SPRAY OPERATOR Vj Oreilly MD LAB POCT ORDERABLES - DEV ICE Final Result Performing Organization Address [facility]/ZIP Co de Phone Number [facility] [place] [address] * POCT heparin/ACT CPB (12/04/2024 11:51 AM HAND SPRAY OPERATOR) [facility] ACT, CPB 154 112 - 174 sec Blood 12/04/2024 11:5 1 AM HAND SPRAY OPERATOR 12/04/2024 11:51 AM HAND SPRAY OPERATOR Result [facility] Vj Oreilly MD LAB POCT ORDERABLES - DEV ICE Final Result Performing Organization Address [facility] de Phone Number [facility] [place] [address] * (ABNORMAL) POC Blood Gas and Chemistries, Arterial - (12/04/2024 11:48 AM HAND SPRAY OPERATOR) [facility] pH, Art POC 7.47(H) 7.35 - 7.45 pCO2, Art POC 36 35 - 45 mmHg [facility] pO2, Art POC 423(H) 83 - 108 mmHg [facility] Na, POC 136 135 - 145 mmol/L [facility] K POC 4.7 3.3 - 4.9 mmol/L [facility] Comment: Interpretive Data Not all point of care methods assess for hemolysis. Confirm with instrument and retest K+ if not consistent with clinical signs and symptoms. Current Interpretive Data was last revised on 2024. Cl, POC 106 97 - 110 mmol/L [facility] Ionized Ca, POC 6.10(H) 4.50 - 5.10 mg/dL [facility] Glucose, POC 158 70 - 199 mg/dL [facility] Lactate, POC 2.4(H) 0.7 - 2.0 mmol/L [facility] SO2 (yousuf) arterial 100(H) 90 - 95 % [facility] Base excess, POC 2.5 mmol/L [facility] HCO3, Art POC 26 20 - 30 mmol/L [facility] Hct, POC 27.0(L) 36.3 - 45.3 % [facility] Total Hb, POC 9.0(L) 11.9 - 15.5 g/dL [facility] Blood 12/04/2024 11:4 8 AM HAND SPRAY OPERATOR 12/04/2024 11:48 AM HAND SPRAY OPERATOR Vj Oreilly MD LAB POCT ORDERABLES - DEV ICE Final Result Performing Organization Address [facility]/ZIP Co de Phone Number [facility] Department of [employer] [place] [address] * (ABNORMAL) POCT heparin/ACT CPB (12/04/2024 11:29 AM HAND SPRAY OPERATOR) Heparin POC <2.8 units/mL ACT, CPB 738(H) 112 - 174 sec [facility] Blood 12/04/2024 11:2 9 AM HAND SPRAY OPERATOR 12/04/2024 11:29 AM HAND SPRAY OPERATOR Vj Oreilly MD LAB POCT ORDERABLES - DEV ICE Final Result Performing Organization Address [facility] Co de Phone Number [facility] Department [place] [address] * (ABNORMAL) POC Blood Gas and Chemistries, Arterial - (12/04/2024 11:26 AM HAND SPRAY OPERATOR) pH, Art POC 7.45 7.35 - 7.45 pCO2, Art POC 39 35 - 45 mmHg [facility] pO2, Art POC 317(H) 83 - 108 mmHg [facility] Na, POC 138 135 - 145 mmol/L [facility] K POC 4.8 3.3 - 4.9 mmol/L [facility] Comment: Interpretive Data Not all point of care methods assess for hemolysis. Confirm with instrument and retest K+ if not consistent with clinical signs and symptoms. Current Interpretive Data was last revised on 2024. Cl, POC 106 97 - 110 mmol/L [facility] Ionized Ca, POC 4.36(L) 4.50 - 5.10 mg/dL [facility] Glucose, POC 170 70 - 199 mg/dL [facility] Lactate, POC 1.9 0.7 - 2.0 mmol/L [facility] SO2 (yousuf) arterial 100(H) 90 - 95 % [facility] Base excess, POC 2.9 mmol/L [facility] HCO3, Art POC 27 20 - 30 mmol/L [facility] Hct, POC 26.0(L) 36.3 - 45.3 % [facility] Total Hb, POC 8.5(L) 11.9 - 15.5 g/dL [facility] Blood 12/04/2024 11:2 6 AM HAND SPRAY OPERATOR 12/04/2024 11:26 AM HAND SPRAY OPERATOR Vj Oreilly MD LAB POCT ORDERABLES - DEV ICE Final Result [facility] Department [facility] [employer] [place] [id number] * (ABNORMAL) POCT heparin/ACT CPB (12/04/2024 10:59 AM HAND SPRAY OPERATOR) Heparin POC <2.8 units/mL ACT, CPB 888(H) 112 - 174 sec [facility] Blood 12/04/2024 10:5 9 AM HAND SPRAY OPERATOR 12/04/2024 10:59 AM HAND SPRAY OPERATOR Vj Oreilly MD LAB POCT ORDERABLES - DEV ICE Final Result [facility] Department of [employer] [place] [address] * (ABNORMAL) POC Blood Gas and Chemistries, Arterial - (12/04/2024 10:55 AM HAND SPRAY OPERATOR) pH, Art POC 7.38 7.35 - 7.45 pCO2, Art POC 46(H) 35 - 45 mmHg [facility] pO2, Art POC 295(H) 83 - 108 mmHg [facility] Na, POC 132(L) 135 - 145 mmol/L [facility] K POC 5.8(H) 3.3 - 4.9 mmol/L [facility] Comment: Interpretive Data Not all point of care methods assess for hemolysis. Confirm with instrument and retest K+ if not consistent with clinical signs and symptoms. Current Interpretive Data was last revised on 2024. Cl, POC 103 97 - 110 mmol/L [facility] Ionized Ca, POC 4.73 4.50 - 5.10 mg/dL [facility] Glucose, POC 186 70 - 199 mg/dL [facility] Lactate, POC 2.3(H) 0.7 - 2.0 mmol/L [facility] SO2 (yousuf) arterial 100(H) 90 - 95 % [facility] Base excess, POC 1.7 mmol/L [facility] HCO3, Art POC 27 20 - 30 mmol/L [facility] Hct, POC 28.0(L) 36.3 - 45.3 % [facility] Total Hb, POC 9.2(L) 11.9 - 15.5 g/dL [facility] Blood 12/04/2024 10:5 5 AM HAND SPRAY OPERATOR 12/04/2024 10:55 AM HAND SPRAY OPERATOR us Vj Oreilly MD LAB POCT ORDERABLES - DEV ICE Final Result [facility] [place] [address] * (ABNORMAL) POCT heparin/ACT CPB (12/04/2024 10:24 AM HAND SPRAY OPERATOR) Heparin POC 3.4 units/mL ACT, CPB 903(H) 112 - 174 sec [facility] Blood 12/04/2024 10:2 4 AM HAND SPRAY OPERATOR 12/04/2024 10:24 AM HAND SPRAY OPERATOR us Vj Oreilly MD LAB POCT ORDERABLES - DEV ICE Final Result [facility] Department [place] [address] * (ABNORMAL) POC Blood Gas and Chemistries, Arterial - (12/04/2024 10:20 AM HAND SPRAY OPERATOR) pH, Art POC 7.47(H) 7.35 - 7.45 pCO2, Art POC 33(L) 35 - 45 mmHg [facility] pO2, Art POC 403(H) 83 - 108 mmHg [facility] Na, POC 132(L) 135 - 145 mmol/L [facility] K POC 4.3 3.3 - 4.9 mmol/L [facility] Comment: Interpretive Data Not all point of care methods assess for hemolysis. Confirm with instrument and retest K+ if not consistent with clinical signs and symptoms. Current Interpretive Data was last revised on 2024. Cl, POC 102 97 - 110 mmol/L [facility] Ionized Ca, POC 4.48(L) 4.50 - 5.10 mg/dL [facility] Glucose, POC 171 70 - 199 mg/dL [facility] Lactate, POC 3.9(H) 0.7 - 2.0 mmol/L [facility] SO2 (yousuf) arterial 100(H) 90 - 95 % [facility] Base excess, POC 0.6 mmol/L [facility] HCO3, Art POC 24 20 - 30 mmol/L [facility] Hct, POC 29.0(L) 36.3 - 45.3 % [facility] Total Hb, POC 9.5(L) 11.9 - 15.5 g/dL [facility] Blood 12/04/2024 10:2 0 AM HAND SPRAY OPERATOR 12/04/2024 10:20 AM HAND SPRAY OPERATOR Vj Oreilly MD LAB POCT ORDERABLES - DEV ICE Final Result [facility] Department [place] [address] * (ABNORMAL) POCT heparin/ACT CPB (12/04/2024 9:49 AM HAND SPRAY OPERATOR) Heparin POC 4.1 units/mL ACT, CPB 683(H) 112 - 174 sec [facility] Blood 12/04/2024 9:49 AM HAND SPRAY OPERATOR 12/04/2024 9:49 AM HAND SPRAY OPERATOR Vj Oreilly MD LAB POCT ORDERABLES - DEV ICE Final Result Performing Organization Address [facility] Co de Phone Number [facility] [place] [address] * Transfuse RBC (12/04/2024 9:41 AM HAND SPRAY OPERATOR) Blood Fernando Chow MD PhD BLOOD TRANSFUSION ORDERABLES Final Result Performing Organization Address [facility]/ZIP Co de Phone Number [facility] Department [place] [address] * Transfuse RBC (12/04/2024 9:41 AM HAND SPRAY OPERATOR) Blood Fernando Chow MD PhD BLOOD TRANSFUSION ORDERABLES Final Result Performing Organization Address [facility] de Phone Number [facility] Department [place] [address] * Surgical pathology (12/04/2024 9:37 AM HAND SPRAY OPERATOR) Tissue specimen (specimen) (Heart Valve) 12/04/2024 9:37 AM HAND SPRAY OPERATOR Narrative PATHOLOGY [facility] - 12/06/2024 10:34 AM HAND SPRAY OPERATOR EPIC results best viewed via link to PDF [facility] Awa Ochoa Laboratory [place] [address] Note to Patients: This report may contain [...] Gender: F : 1970 (Age: 54) Address: [address] [place], [place] [id number] Hospital #: [id number] Taken:12/04/2024 Received:12/04/2024 Reported: 12/06/2024 Patient Type: [facility] Inpatient Service: UNKNOWN Location: [place] [address] Physician(s): Radha Matthews Jr., M.D. Diagnosis: A. [...] Surgical Pathology and Flow Cytometry Departments at [facility] as part of an ongoing coding quality analyst program and in compliance with federally mandated [...] Surgical Pathology and Flow Cytometry Departments of [facility]. It has not been cleared or approved by the U. S. Food and Drug Administration. IMAGES AND SCANNED DOCUMENTS, IF INCLUDED, ONLY VIEWABLE IN PDF VERSION OF REPORT us Vj Oreilly MD LAB PATHOLOGY ORDERABLES Final Result PATHOLOGY [facility] 3rd Floor [place], [place] [phone] * GA AN PROCEDURE PLACEHOLDER (12/04/2024 9:34 AM HAND SPRAY OPERATOR) Anatomical Region Laterality Modality Other Narrative 12/04/2024 9:34 AM HAND SPRAY OPERATOR Fernando Chow MD PhD 12/04/2024 12:55 PM [...] code: KALEN placement and diagnostic exam, non-congenital (42151) ICD code(s) for medical necessity: I33.0 - [...] inferior: normal 16- Apical septal: normal 17- [place]: normal Valves: Aortic Valve: Annulus: normal Leaflet [...] * Central Venous Line (12/04/2024 9:18 AM HAND SPRAY OPERATOR) Narrative Spencer Irvin MD - 12/04/2024 9:18 AM HAND SPRAY OPERATOR Spencer Irvin MD 12/04/2024 9:21 AM Central [...] * Central Venous Line (12/04/2024 9:17 AM HAND SPRAY OPERATOR) Narrative Spencer Irvin MD - 12/04/2024 9:17 AM HAND SPRAY OPERATOR Spencer Irvin MD 12/04/2024 9:18 AM Central [...] Final * Arterial Line (12/04/2024 9:17 AM HAND SPRAY OPERATOR) Spencer Simpson MD - 12/04/2024 9:17 AM HAND SPRAY OPERATOR Spencer Irvin MD 12/04/2024 9:17 AM Arterial [...] Final Result * Airway (12/04/2024 9:16 AM HAND SPRAY OPERATOR) Spencer Simpson MD - 12/04/2024 9:16 AM HAND SPRAY OPERATOR Spencer Irvin MD 12/04/2024 9:17 AM Airway [...] of attempts: 1 Planned trial extubation: yes [facility] Amy Chow MD PhD ANESTHESIA ORDERAB LES Final Result * POCT heparin dose response, CPB (12/04/2024 9:13 AM HAND SPRAY OPERATOR) Pathologist [facility] Baseline ACT POC 143 112 - 174 sec Heparin dose response slope POC 114 60 - 195 [facility] Projected Heparin Concentration POC 3.0 units/mL [facility] Blood 12/04/2024 9:13 AM HAND SPRAY OPERATOR 12/04/2024 9:13 AM HAND SPRAY OPERATOR Vj Oreilly MD LAB POCT ORDERABLES - DEV ICE Final Result [facility] Department [place] [address] * (ABNORMAL) POC Blood Gas and Chemistries, Arterial - (12/04/2024 9:08 AM HAND SPRAY OPERATOR) Pathologist [facility] pH, Art POC 7.54(H) 7.35 - 7.45 pCO2, Art POC 34(L) 35 - 45 mmHg [facility] pO2, Art POC 249(H) 83 - 108 mmHg [facility] Na, POC 134(L) 135 - 145 mmol/L [facility] K POC 3.3 3.3 - 4.9 mmol/L [facility] Comment: Interpretive Data Not all point of care methods assess for hemolysis. Confirm with instrument and retest K+ if not consistent with clinical signs and symptoms. Current Interpretive Data was last revised on 2024. Cl, POC 101 97 - 110 mmol/L [facility] Ionized Ca, POC 4.61 4.50 - 5.10 mg/dL [facility] Glucose, POC 135 70 - 199 mg/dL [facility] Lactate, POC 1.6 0.7 - 2.0 mmol/L [facility] SO2 (yousuf) arterial 100(H) 90 - 95 % [facility] Base excess, POC 6.3 mmol/L [facility] HCO3, Art POC 29 20 - 30 mmol/L [facility] Hct, POC 26.0(L) 36.3 - 45.3 % [facility] Total Hb, POC 8.8(L) 11.9 - 15.5 g/dL [facility] Blood 12/04/2024 9:08 AM HAND SPRAY OPERATOR 12/04/2024 9:08 AM HAND SPRAY OPERATOR Vj Oreilly MD LAB POCT ORDERABLES - DEV ICE Final Result Performing Organization Address [facility] Co de Phone Number [facility] Department [place] [address] * KALEN Add-On For OR (12/04/2024 7:59 AM HAND SPRAY OPERATOR) Pathologist [facility] BSA 1.62 m2 [facility] PROSOLV_CARDIORE PORT_CONS SCIMAGE Narrative [facility] PROSOLV_CARDIOREPORT_CONS SCIMAGE - 12/04/2024 7:59 AM HAND SPRAY OPERATOR Procedure Auto Finalized by Rule: BW CV KALEN DURING CASE OR Please see the Anesthesiologist's Procedure Note for the results. us Fernando Chow MD PhD CV ECHO PROCEDURES Final Result Performing Organization Address City/[facility]/ZIP Co de Phone Number [facility] PROSOLV_CARDIOREPORT_CONS SCIMAGE * (ABNORMAL) POC Blood Gas and Chemistries, Arterial - (12/04/2024 6:24 AM HAND SPRAY OPERATOR) Na, POC 135 135 - 145 mmol/L K POC 3.9 3.3 - 4.9 mmol/L [facility] Comment: Interpretive Data Not all point of care methods assess for hemolysis. Confirm with instrument and retest K+ if not consistent with clinical signs and symptoms. Current Interpretive Data was last revised on 2024. Glucose, POC 99 70 - 199 mg/dL [facility] Hct, POC 32.0(L) 36.3 - 45.3 % [facility] Total Hb, POC 10.6(L) 11.9 - 15.5 g/dL [facility] Blood 12/04/2024 6:24 AM HAND SPRAY OPERATOR 12/04/2024 6:24 AM HAND SPRAY OPERATOR us Vj Oreilly MD LAB POCT ORDERABLES - DEV ICE Final Result Performing Organization Address [facility] de Phone Number [facility] Department [place] [address] * Prepare RBC: 4 Units (12/04/2024 5:52 AM HAND SPRAY OPERATOR) Product code [id number] [facility] Unit Number [id number]- H [facility] Product Blood Type BNEG [facility] Dispense Status RETURNED [facility] Product code [id number] [facility] Unit Number [id number]- R [facility] Product Blood Type BNEG [facility] Dispense Status RETURNED [facility] Product code [id number] Unit Number [id number]- F [facility] Product Blood Type BNEG [facility] Dispense Status PRESUMED TRANSFUSED [facility] Product code [id number] [facility] Unit Number [id number] 3 [facility] Product Blood Type BNEG [facility] Dispense Status PRESUMED TRANSFUSED [facility] Blood 12/04/2024 5:52 AM HAND SPRAY OPERATOR 12/04/2024 5:51 AM HAND SPRAY OPERATOR Narrative [facility] - 12/04/2024 9:00 PM HAND SPRAY OPERATOR Specify Procedure:->MVR Are special requirements needed? (All products are leukoreduced and CMV- safe)- >No Date required:-[id number] LRRBC # of [id number] Reasons:-Hold for procedure (specify procedure)} us Carmita Castellanos NP BLOOD BANK PRODUCT ORDERAB LES Final Result Performing Organization Address [facility]/State/ZIP Co de Phone Number [facility] Department [place] [address] * (ABNORMAL) eGFR (12/03/2024 10:17 PM HAND SPRAY OPERATOR) [facility] eGFR 23(L) >=60 mL/min/1. 73 m2 Comment: [...] reviewed 2021. Blood 12/03/2024 10:1 7 PM HAND SPRAY OPERATOR 12/03/2024 11:26 PM HAND SPRAY OPERATOR Tito García NP LAB BLOOD ORDERABLES Final Result [facility] Department [place] [address] * (ABNORMAL) CBC without differential (12/03/2024 10:17 PM HAND SPRAY OPERATOR) [facility] WBC 5.1 3.8 - 9.9 K/cumm Hgb 10.0(L) 11.9 - 15.5 g/dL [facility] Hct 32.1(L) 35.6 - 45.5 % [facility] Plt 169 150 - 400 K/cumm [facility] MPV 10.0 9.1 - 12.3 fL [facility] RBC 3.48(L) 3.90 - 5.20 M/cumm [facility] MCV 92.2 81.3 - 96.4 fL [facility] MCH 28.7 27.1 - 33.3 pg [facility] MCHC 31.2(L) 32.3 - 35.7 g/dL [facility] RDW CV 16.8(H) 11.1 - 14.9 % [facility] RDW SD 56.7(H) 35.7 - 48.1 fL [facility] NRBC abs 0.00 0.00 - 0.01 K/cumm [facility] Blood 12/03/2024 10:1 7 PM HAND SPRAY OPERATOR 12/03/2024 11:28 PM HAND SPRAY OPERATOR Tito García COMMUTATOR INSPECTOR LAB BLOOD ORDERABLES Final Result Performing Organization Address [facility] de Phone Number [facility] [place] [address] * (ABNORMAL) Phosphorus (12/03/2024 10:17 PM HAND SPRAY OPERATOR) Phosphorus, pl 1.4(L) 2.3 - 4.5 mg/dL Blood 12/03/2024 10:1 7 PM HAND SPRAY OPERATOR 12/03/2024 11:26 PM HAND SPRAY OPERATOR Tito García COMMUTATOR INSPECTOR LAB BLOOD ORDERABLES Final Result Performing Organization Address [facility] de Phone Number [facility] [place] [address] * Magnesium (12/03/2024 10:17 PM HAND SPRAY OPERATOR) Magnesium 2.1 1.4 - 2.5 mg/dL Blood 12/03/2024 10:1 7 PM HAND SPRAY OPERATOR 12/03/2024 11:26 PM HAND SPRAY OPERATOR Tito García COMMUTATOR INSPECTOR LAB BLOOD ORDERABLES Final Result Performing Organization Address [facility]/State/ZIP Co de Phone Number [facility] Department [place] [address] * (ABNORMAL) Basic metabolic panel (12/03/2024 10:17 PM HAND SPRAY OPERATOR) Pathologist [facility] Sodium 133(L) 135 - 145 mmol/L Potassium, pl 3.8 3.3 - 4.9 mmol/L [facility] Chloride 96(L) 97 - 110 mmol/L [facility] CO2 30 22 - 32 mmol/L [facility] Anion gap 7 2 - 15 mmol/L [facility] BUN 7 6 - 25 mg/dL [facility] Creatinine 2.45(H) 0.60 - 1.10 mg/dL [facility] Glucose 117 70 - 199 mg/dL [facility] Comment: Interpretive Data Fasting glucose >/= 126 [...] 2022. Calcium 8.4(L) 8.5 - 10.3 mg/dL [facility] Blood 12/03/2024 10:1 7 PM HAND SPRAY OPERATOR 12/03/2024 11:26 PM HAND SPRAY OPERATOR Tito García NP LAB BLOOD ORDERABLES Final Result [facility] Department [place] [address] * (ABNORMAL) Urinalysis reflex to microscopic and culture Urine, clean voided (12/03/2024 9:17 PM HAND SPRAY OPERATOR) Color, ur Straw Yellow Clarity, ur Clear Clear [facility] Specific gravity, ur 1.008 1.003 - 1.030 [facility] pH, urine 8.5 [facility] Comment: Interpretive Data U rine pH is affected by diet, medications, systemic acid-base disturbances, and renal tubular function. pH may affect urinary stone formation. For example, urine pH below 6.0 may help reduce the tendency for calcium phosphate stones and pH greater than 6.0 may reduce the tendency for uric acid stone formation. Source: [facility] Current Interpretive Data was last revised on 2017 Protein, ur ql 1+(A) Negative [facility] Glucose, ur ql Negative Negative [facility] Ketones, ur Negative Negative [facility] Bilirubin, ur Negative Negative [facility] Blood, ur Negative Negative [facility] Urobilinogen, ur <2.0 <2.0 mg/dL [facility] Nitrite, ur Negative Negative [facility] Leukocyte esterase, ur Negative Negative [facility] UA reflex comment Reflex to microscopic UA will be performed. [facility] Urine, clean voided 12/03/2024 9:17 PM HAND SPRAY OPERATOR 12/03/2024 10:27 PM HAND SPRAY OPERATOR Narrative [facility] - 12/03/2024 10:35 PM HAND SPRAY OPERATOR Please send eva, she is preop for OR tomorow Sia Orr NP LAB MICROBIOLOGY - GENERAL ORDER CHERI Final Result [facility] Department [place] [address] * (ABNORMAL) Urinalysis, microscopic only (12/03/2024 9:17 PM HAND SPRAY OPERATOR) WBC, ur 0-5 0 - 5 /HPF RBC, ur 0-2 0 - 2 /HPF [facility] Epithelial cells, squamous, ur 1-5 0 - 5 /HPF [facility] Mucous, ur Present(A) [facility] Culture Reflex Comment Reflex conditions for urine culture (WBC >10) not met. [facility] Urine, clean voided 12/03/2024 9:17 PM HAND SPRAY OPERATOR 12/03/2024 10:27 PM HAND SPRAY OPERATOR us Sia Orr COMMUTATOR INSPECTOR LAB URINE ORDERABLES Final Resul t Performing Organization Address [facility] Co de Phone Number [facility] Department [place] [address] * (ABNORMAL) eGFR (12/02/2024 9:40 PM HAND SPRAY OPERATOR) eGFR 18(L) >=60 mL/min/1. 73 m2 Comment: [...] last reviewed 2021. Blood 12/02/2024 9:40 PM HAND SPRAY OPERATOR 12/02/2024 10:47 PM HAND SPRAY OPERATOR us Tito García COMMUTATOR INSPECTOR LAB BLOOD ORDERABLES Final Result Performing Organization Address City/[facility]/ZIP Co de Phone Number [facility] Department [place] [address] * (ABNORMAL) CBC without differential (12/02/2024 9:40 PM HAND SPRAY OPERATOR) Pathologist [facility] WBC 5.7 3.8 - 9.9 K/cumm Hgb 9.9(L) 11.9 - 15.5 g/dL [facility] Hct 31.3(L) 35.6 - 45.5 % [facility] Plt 191 150 - 400 K/cumm [facility] MPV 10.3 9.1 - 12.3 fL [facility] RBC 3.44(L) 3.90 - 5.20 M/cumm [facility] MCV 91.0 81.3 - 96.4 fL [facility] MCH 28.8 27.1 - 33.3 pg [facility] MCHC 31.6(L) 32.3 - 35.7 g/dL [facility] RDW CV 17.0(H) 11.1 - 14.9 % [facility] RDW SD 56.8(H) 35.7 - 48.1 fL [facility] NRBC abs 0.00 0.00 - 0.01 K/cumm [facility] Blood 12/02/2024 9:40 PM HAND SPRAY OPERATOR 12/02/2024 10:51 PM HAND SPRAY OPERATOR Tito García COMMUTATOR INSPECTOR LAB BLOOD ORDERABLES Final Result Performing Organization Address City/[facility]/ZIP Co de Phone Number [facility] Department of [place] [address] * Type and screen (12/02/2024 9:40 PM HAND SPRAY OPERATOR) Pathologist [facility] ABO Rh B Positive Radha, indirect Negative [facility] Blood 12/02/2024 9:40 PM HAND SPRAY OPERATOR 12/02/2024 11:06 PM HAND SPRAY OPERATOR Narrative [facility] - 12/03/2024 12:22 AM HAND SPRAY OPERATOR Has the patient had Daratumumab or Isatuximab in the past 6 months?->Unknown Tito García NP LAB BLOOD BANK TEST ORDERA BLES Final Result Performing Organization Address [facility]/ZIP Co de Phone Number [facility] [place] [address] * (ABNORMAL) Phosphorus (12/02/2024 9:40 PM HAND SPRAY OPERATOR) Phosphorus, pl 1.7(L) 2.3 - 4.5 mg/dL Blood 12/02/2024 9:40 PM HAND SPRAY OPERATOR 12/02/2024 10:47 PM HAND SPRAY OPERATOR Tito García COMMUTATOR INSPECTOR LAB BLOOD ORDERABLES Final Result Performing Organization Address [facility] Co de Phone Number [facility] [place] [address] * Magnesium (12/02/2024 9:40 PM HAND SPRAY OPERATOR) [facility] Magnesium 2.3 1.4 - 2.5 mg/dL Blood 12/02/2024 9:40 PM HAND SPRAY OPERATOR 12/02/2024 10:47 PM HAND SPRAY OPERATOR Tito García COMMUTATOR INSPECTOR LAB BLOOD ORDERABLES Final Result Performing Organization Address [facility] de Phone Number [facility] [place] [address] * (ABNORMAL) Creatine kinase (CK), total (12/02/2024 9:40 PM HAND SPRAY OPERATOR) [facility] CK 21(L) 30 - 200 Units/L Blood 12/02/2024 9:40 PM HAND SPRAY OPERATOR 12/02/2024 10:47 PM HAND SPRAY OPERATOR Ana María Vaca COMMUTATOR INSPECTOR LAB BLOOD ORDERABLES Final Result Performing Organization Address [facility] [place] [address] * (ABNORMAL) Basic metabolic panel (12/02/2024 9:40 PM HAND SPRAY OPERATOR) [facility] Sodium 134(L) 135 - 145 mmol/L Potassium, pl 4.4 3.3 - 4.9 mmol/L [facility] Chloride 97 97 - 110 mmol/L [facility] CO2 29 22 - 32 mmol/L [facility] Anion gap 8 2 - 15 mmol/L [facility] BUN 9 6 - 25 mg/dL [facility] Creatinine 2.96(H) 0.60 - 1.10 mg/dL [facility] Glucose 135 70 - 199 mg/dL [facility] Comment: Interpretive Data Fasting glucose >/= 126 [...] 2022. Calcium 8.5 8.5 - 10.3 mg/dL [facility] Blood 12/02/2024 9:40 PM HAND SPRAY OPERATOR 12/02/2024 10:47 PM HAND SPRAY OPERATOR [facility] Shari García NP LAB BLOOD ORDERABLES Final Result [facility] Department of Laboratories [place] [phone] * LEFT HEART CATHETERIZATION (LHC) (12/02/2024 1:58 PM HAND SPRAY OPERATOR) Anatomical Region Laterality Modality X-Ray Angiograph y Impressions 12/02/2024 2:08 PM HAND SPRAY OPERATOR No angiographically significant coronary artery disease Normal left ventricular end diastolic blood pressure. THERAPEUTIC RECOMMENDATIONS: No need for coronary revascularization at the time of valve surgery Narrative 12/02/2024 2:08 PM HAND SPRAY OPERATOR Images from the original result were not included. Cardiovascular Procedure Center [facility] [employer] [facility] [address] [place] [address] DIAGNOSTIC CATHETERIZATION REPORT Patient: Quin Miller : 1970 MR number: [id number] Date of Service: 12/02/2024 Rubber Stamp Maker: Jeramie José MD INDICATION: CHF/Dyspnea NYHA Class [...] obtained. The patient was brought to the labor trainer and placed on the table. The RIGHT [...] left ventriculogram was done. I provided direct [id number] moderate conscious sedation which administered by independent [...] Right dominant system. normal COMPLICATIONS: None. DIAGNOSTIC Ana María Vaca NP CV CARDIAC CATH PROCEDURES Final Result * Blood culture Blood (12/02/2024 8:36 AM HAND SPRAY OPERATOR) Report Final Report: No growth Blood 12/02/2024 8:36 AM HAND SPRAY OPERATOR 12/02/2024 9:34 AM HAND SPRAY OPERATOR Jeni TAFOYA [facility] - 12/06/2024 12:00 PM HAND SPRAY OPERATOR Collection->Peripheral 1. Blood cultures are incubated for [...] performance characteristics have been verified by the [facility] Microbiology Laboratory. For questions about this culture, contact the Microbiology Laboratory at [phone]. Interpretive data was last revised on 24. Ana María Vaca NP LAB MICROBIOLOGY - GENERAL ORDERABLES Final Result Performing Organization Address City/[facility]/ZIP Co de Phone Number [facility] Department [place] [address] * Infection Prevention Leidy auris PCR, surveillance Axilla/Groin (12/01/2024 10:28 PM HAND SPRAY OPERATOR) [facility] Leidy auris DNA Not Detected Not Detected [facility] Comment: Interpretive Data Testing performed by [facility] Molecular Infectious Disease Laboratory using the Jannie dawson [id number] Leidy auris assay. This assay detects DNA from Leidy auris using Real-Time PCR. This assay is laboratory developed and is not cleared by the [place] Food and Drug Administration. The performance characteristics have been verified by the [facility] Molecular Infectious Disease Laboratory. Axilla/Groin 12/01/2024 10:2 8 PM HAND SPRAY OPERATOR 12/01/2024 10:47 PM HAND SPRAY OPERATOR Paco Hunter MD LAB MICROBIOLOGY - GENERAL ORDER CHERI Final Result Performing Organization Address City/[facility]/ZIP Co de Phone Number [facility] Department [place] [address] [facility] * (ABNORMAL) eGFR (12/01/2024 10:28 PM HAND SPRAY OPERATOR) [facility] eGFR 9(L) >=60 mL/min/1. 73 m2 Comment: [...] reviewed 2021. Blood 12/01/2024 10:2 8 PM HAND SPRAY OPERATOR 12/01/2024 10:54 PM HAND SPRAY OPERATOR Tito García NP LAB BLOOD ORDERABLES Final Result [facility] Department [place] [address] * (ABNORMAL) CBC without differential (12/01/2024 10:28 PM HAND SPRAY OPERATOR) [facility] WBC 5.4 3.8 - 9.9 K/cumm Hgb 9.0(L) 11.9 - 15.5 g/dL [facility] Hct 28.2(L) 35.6 - 45.5 % [facility] Plt 162 150 - 400 K/cumm [facility] MPV 10.0 9.1 - 12.3 fL [facility] RBC 3.14(L) 3.90 - 5.20 M/cumm [facility] MCV 89.8 81.3 - 96.4 fL [facility] MCH 28.7 27.1 - 33.3 pg [facility] MCHC 31.9(L) 32.3 - 35.7 g/dL [facility] RDW CV 16.8(H) 11.1 - 14.9 % [facility] RDW SD 54.9(H) 35.7 - 48.1 fL [facility] NRBC abs 0.00 0.00 - 0.01 K/cumm [facility] Blood 12/01/2024 10:2 8 PM HAND SPRAY OPERATOR 12/01/2024 10:55 PM HAND SPRAY OPERATOR us Tito García COMMUTATOR INSPECTOR LAB BLOOD ORDERABLES Final Result Performing Organization Address City/[facility] Co de Phone Number [facility] Department [place] [address] * (ABNORMAL) Phosphorus (12/01/2024 10:28 PM HAND SPRAY OPERATOR) Phosphorus, pl 1.6(L) 2.3 - 4.5 mg/dL Blood 12/01/2024 10:2 8 PM HAND SPRAY OPERATOR 12/01/2024 10:54 PM HAND SPRAY OPERATOR us Tito García COMMUTATOR INSPECTOR LAB BLOOD ORDERABLES Final Result Performing Organization Address City[facility] Co de Phone Number [facility] Department [place] [address] * Magnesium (12/01/2024 10:28 PM HAND SPRAY OPERATOR) Magnesium 2.5 1.4 - 2.5 mg/dL Blood 12/01/2024 10:2 8 PM HAND SPRAY OPERATOR 12/01/2024 10:54 PM HAND SPRAY OPERATOR Tito García COMMUTATOR INSPECTOR LAB BLOOD ORDERABLES Final Result Performing Organization Address [facility] Co de Phone Number [facility] Department [place] [address] * (ABNORMAL) Basic metabolic panel (12/01/2024 10:28 PM HAND SPRAY OPERATOR) [facility] Sodium 133(L) 135 - 145 mmol/L Potassium, pl 4.9 3.3 - 4.9 mmol/L [facility] Chloride 99 97 - 110 mmol/L [facility] CO2 29 22 - 32 mmol/L [facility] Anion gap 5 2 - 15 mmol/L [facility] BUN 25 6 - 25 mg/dL [facility] Creatinine 5.25(H) 0.60 - 1.10 mg/dL [facility] Glucose 100 70 - 199 mg/dL [facility] Comment: Interpretive Data Fasting glucose >/= 126 [...] 2022. Calcium 8.1(L) 8.5 - 10.3 mg/dL [facility] Blood 12/01/2024 10:2 8 PM HAND SPRAY OPERATOR 12/01/2024 10:54 PM HAND SPRAY OPERATOR Tito García NP LAB BLOOD ORDERABLES Final Result [facility] Department [place] [address] * (ABNORMAL) eGFR (11/30/2024 10:05 PM HAND SPRAY OPERATOR) [facility] eGFR 12(L) >=60 mL/min/1. 73 m2 Comment: [...] reviewed 2021. Blood 11/30/2024 10:0 5 PM HAND SPRAY OPERATOR 11/30/2024 10:37 PM HAND SPRAY OPERATOR Tito García NP LAB BLOOD ORDERABLES Final Result [facility] Department [place] [address] * (ABNORMAL) CBC without differential (11/30/2024 10:05 PM HAND SPRAY OPERATOR) WBC 5.1 3.8 - 9.9 K/cumm Hgb 9.2(L) 11.9 - 15.5 g/dL [facility] Hct 29.5(L) 35.6 - 45.5 % [facility] Plt 161 150 - 400 K/cumm [facility] MPV 10.3 9.1 - 12.3 fL [facility] RBC 3.24(L) 3.90 - 5.20 M/cumm [facility] MCV 91.0 81.3 - 96.4 fL [facility] MCH 28.4 27.1 - 33.3 pg [facility] MCHC 31.2(L) 32.3 - 35.7 g/dL [facility] RDW CV 16.7(H) 11.1 - 14.9 % [facility] RDW SD 56.3(H) 35.7 - 48.1 fL [facility] NRBC abs 0.00 0.00 - 0.01 K/cumm [facility] Blood 11/30/2024 10:0 5 PM HAND SPRAY OPERATOR 11/30/2024 10:39 PM HAND SPRAY OPERATOR Tito García COMMUTATOR INSPECTOR LAB BLOOD ORDERABLES Final Result Performing Organization Address [facility] Co de Phone Number [facility] [place] [address] * (ABNORMAL) Phosphorus (11/30/2024 10:05 PM HAND SPRAY OPERATOR) [facility] Phosphorus, pl 1.3(L) 2.3 - 4.5 mg/dL Blood 11/30/2024 10:0 5 PM HAND SPRAY OPERATOR 11/30/2024 10:37 PM HAND SPRAY OPERATOR Tito García COMMUTATOR INSPECTOR LAB BLOOD ORDERABLES Final Result Performing Organization Address [facility] de Phone Number [facility] [place] [address] * Magnesium (11/30/2024 10:05 PM HAND SPRAY OPERATOR) [facility] Magnesium 2.5 1.4 - 2.5 mg/dL Blood 11/30/2024 10:0 5 PM HAND SPRAY OPERATOR 11/30/2024 10:37 PM HAND SPRAY OPERATOR Tito García COMMUTATOR INSPECTOR LAB BLOOD ORDERABLES Final Result Performing Organization Address [facility] de Phone Number [facility] [place] [address] * (ABNORMAL) Basic metabolic panel (11/30/2024 10:05 PM HAND SPRAY OPERATOR) [facility] Sodium 133(L) 135 - 145 mmol/L Potassium, pl 4.5 3.3 - 4.9 mmol/L [facility] Chloride 98 97 - 110 mmol/L [facility] CO2 30 22 - 32 mmol/L [facility] Anion gap 5 2 - 15 mmol/L [facility] BUN 21 6 - 25 mg/dL [facility] Creatinine 4.12(H) 0.60 - 1.10 mg/dL [facility] Glucose 117 70 - 199 mg/dL [facility] Comment: Interpretive Data Fasting glucose >/= 126 [...] 2022. Calcium 8.3(L) 8.5 - 10.3 mg/dL [facility] Blood 11/30/2024 10:0 5 PM HAND SPRAY OPERATOR 11/30/2024 10:37 PM HAND SPRAY OPERATOR Tito García NP LAB BLOOD ORDERABLES Final Result [facility] Department [place] [address] * (ABNORMAL) eGFR (11/29/2024 10:10 PM HAND SPRAY OPERATOR) eGFR 23(L) >=60 mL/min/1. 73 m2 Comment: [...] reviewed 2021. Blood 11/29/2024 10:1 0 PM HAND SPRAY OPERATOR 11/29/2024 10:59 PM HAND SPRAY OPERATOR Tito García COMMUTATOR INSPECTOR LAB BLOOD ORDERABLES Final Result [facility] Department [place] [address] * (ABNORMAL) CBC without differential (11/29/2024 10:10 PM HAND SPRAY OPERATOR) WBC 4.6 3.8 - 9.9 K/cumm Hgb 9.0(L) 11.9 - 15.5 g/dL [facility] Hct 28.6(L) 35.6 - 45.5 % [facility] Plt 147(L) 150 - 400 K/cumm [facility] MPV 9.9 9.1 - 12.3 fL [facility] RBC 3.10(L) 3.90 - 5.20 M/cumm [facility] MCV 92.3 81.3 - 96.4 fL [facility] MCH 29.0 27.1 - 33.3 pg [facility] MCHC 31.5(L) 32.3 - 35.7 g/dL [facility] RDW CV 17.0(H) 11.1 - 14.9 % [facility] RDW SD 57.2(H) 35.7 - 48.1 fL [facility] NRBC abs 0.00 0.00 - 0.01 K/cumm [facility] Blood 11/29/2024 10:1 0 PM HAND SPRAY OPERATOR 11/29/2024 11:11 PM HAND SPRAY OPERATOR Tito García NP LAB BLOOD ORDERABLES [place] [address] * Type and screen (11/29/2024 10:10 PM HAND SPRAY OPERATOR) Pathologist [facility] Radha, indirect Negative ABO Rh B Positive [facility] Blood 11/29/2024 10:1 0 PM HAND SPRAY OPERATOR 11/29/2024 10:55 PM HAND SPRAY OPERATOR Narrative [facility] - 11/29/2024 11:58 PM HAND SPRAY OPERATOR Has the patient had Daratumumab or Isatuximab in the past 6 months?->Unknown Tito García NP LAB BLOOD BANK TEST [place] [address] * (ABNORMAL) Phosphorus (11/29/2024 10:10 PM HAND SPRAY OPERATOR) [facility] Phosphorus, pl 1.1(L) 2.3 - 4.5 mg/dL Blood 11/29/2024 10:1 0 PM HAND SPRAY OPERATOR 11/29/2024 10:59 PM HAND SPRAY OPERATOR Tito García COMMUTATOR INSPECTOR LAB BLOOD ORDERABLES Final Result [facility] Department [place] [address] * Magnesium (11/29/2024 10:10 PM HAND SPRAY OPERATOR) [facility] Magnesium 2.3 1.4 - 2.5 mg/dL Blood 11/29/2024 10:1 0 PM HAND SPRAY OPERATOR 11/29/2024 10:59 PM HAND SPRAY OPERATOR Tito García NP LAB BLOOD ORDERABLES Final Result [facility] [place] [address] * (ABNORMAL) Basic metabolic panel (11/29/2024 10:10 PM HAND SPRAY OPERATOR) Pathologist [facility] Sodium 131(L) 135 - 145 mmol/L Potassium, pl 3.9 3.3 - 4.9 mmol/L [facility] Chloride 95(L) 97 - 110 mmol/L [facility] CO2 33(H) 22 - 32 mmol/L [facility] Anion gap 3 2 - 15 mmol/L [facility] BUN 10 6 - 25 mg/dL [facility] Creatinine 2.43(H) 0.60 - 1.10 mg/dL [facility] Glucose 112 70 - 199 mg/dL [facility] Comment: Interpretive Data Fasting glucose >/= 126 [...] 2022. Calcium 8.1(L) 8.5 - 10.3 mg/dL [facility] Blood 11/29/2024 10:1 0 PM HAND SPRAY OPERATOR 11/29/2024 10:59 PM HAND SPRAY OPERATOR Tito García NP LAB BLOOD ORDERABLES Final Result [facility] [place] [address] * (ABNORMAL) eGFR (11/28/2024 10:29 PM HAND SPRAY OPERATOR) Pathologist [facility] eGFR 13(L) >=60 mL/min/1. 73 m2 Comment: [...] reviewed 2021. Blood 11/28/2024 10:2 9 PM HAND SPRAY OPERATOR 11/28/2024 10:40 PM HAND SPRAY OPERATOR Tito García NP LAB BLOOD ORDERABLES Final Result [facility] Department [place] [address] * Blood culture Blood (11/28/2024 10:29 PM HAND SPRAY OPERATOR) Report Final Report: No growth Blood 11/28/2024 10:2 9 PM HAND SPRAY OPERATOR 11/28/2024 10:39 PM HAND SPRAY OPERATOR Narrative [facility] - 12/03/2024 7:00 AM HAND SPRAY OPERATOR Collection->Peripheral 1. Blood cultures are incubated for [...] performance characteristics have been verified by the [facility] Microbiology Laboratory. For questions about this culture, contact the Microbiology Laboratory at [phone]. Interpretive data was last revised on 24. us Ana María Vaca COMMUTATOR INSPECTOR LAB MICROBIOLOGY - GENERAL ORDERABLES Final Result Performing Organization Address City/[facility]/ZIP Co de Phone Number [facility] Department [place] [address] * (ABNORMAL) CBC without differential (11/28/2024 10:29 PM HAND SPRAY OPERATOR) Pathologist [facility] WBC 4.7 3.8 - 9.9 K/cumm Hgb 9.0(L) 11.9 - 15.5 g/dL [facility] Hct 28.1(L) 35.6 - 45.5 % [facility] Plt 143(L) 150 - 400 K/cumm [facility] MPV 9.6 9.1 - 12.3 fL [facility] RBC 3.04(L) 3.90 - 5.20 M/cumm [facility] MCV 92.4 81.3 - 96.4 fL [facility] MCH 29.6 27.1 - 33.3 pg [facility] MCHC 32.0(L) 32.3 - 35.7 g/dL [facility] RDW CV 17.2(H) 11.1 - 14.9 % [facility] RDW SD 59.2(H) 35.7 - 48.1 fL [facility] NRBC abs 0.00 0.00 - 0.01 K/cumm [facility] Blood 11/28/2024 10:2 9 PM HAND SPRAY OPERATOR 11/28/2024 10:41 PM HAND SPRAY OPERATOR Tito García COMMUTATOR INSPECTOR LAB BLOOD ORDERABLES Final Result Performing Organization Address City/[facility]/ZIP Co de Phone Number [facility] Department [place] [address] * (ABNORMAL) Phosphorus (11/28/2024 10:29 PM HAND SPRAY OPERATOR) [facility] Phosphorus, pl 1.4(L) 2.3 - 4.5 mg/dL Blood 11/28/2024 10:2 9 PM HAND SPRAY OPERATOR 11/28/2024 10:40 PM HAND SPRAY OPERATOR Tito García COMMUTATOR INSPECTOR LAB BLOOD [place] [address] * Magnesium (11/28/2024 10:29 PM HAND SPRAY OPERATOR) [facility] Magnesium 2.2 1.4 - 2.5 mg/dL Blood 11/28/2024 10:2 9 PM HAND SPRAY OPERATOR 11/28/2024 10:40 PM HAND SPRAY OPERATOR Tito García COMMUTATOR INSPECTOR LAB BLOOD ORDERABLES Final Result Performing Organization Address City/[facility]/[place] [address] * (ABNORMAL) Basic metabolic panel (11/28/2024 10:29 PM HAND SPRAY OPERATOR) [facility] Sodium 131(L) 135 - 145 mmol/L Potassium, pl 3.9 3.3 - 4.9 mmol/L [facility] Chloride 96(L) 97 - 110 mmol/L [facility] CO2 30 22 - 32 mmol/L [facility] Anion gap 5 2 - 15 mmol/L [facility] BUN 14 6 - 25 mg/dL [facility] Creatinine 3.88(H) 0.60 - 1.10 mg/dL [facility] Glucose 84 70 - 199 mg/dL [facility] Comment: Interpretive Data Fasting glucose >/= 126 [...] 2022. Calcium 7.9(L) 8.5 - 10.3 mg/dL [facility] Blood 11/28/2024 10:2 9 PM HAND SPRAY OPERATOR 11/28/2024 10:40 PM HAND SPRAY OPERATOR us Tito García NP LAB BLOOD ORDERABLES Final Result [facility] Department [place] [address] * GENERAL (11/28/2024 12:40 PM HAND SPRAY OPERATOR) Narrative Spencer Hogue MD - 11/28/2024 12:40 PM HAND SPRAY OPERATOR Janett Reyes MD 11/28/2024 12:45 PM General - Inpatient Date/Time: 11/28/2024 12:40 PM Performed by: Janett Reyes MD Authorized by: Spencer Hogue MD [place] Protocol: RN Notified of Procedure: yes Informed consent: Risks, benefits, alternatives discussed and patient/sales representatives/guardian agrees and accepts Patient's stated name/ matches armband: Yes Allergies confirmed: yes Consent form signed, dated, timed; matches correct patient, intended procedure and site: Yes Procedure details: Ampicillin challenge us Spencer Hogue MD IN CLINIC/BEDSIDE ORDERABLES Final Result * ECG 12 lead (11/28/2024 8:45 AM HAND SPRAY OPERATOR) Ventricular Rate EKG/Min 78 BPM [facility] Atrial Rate 78 BPM [facility] GA-Interval (MSEC) 166 ms [facility] QRS-Interval (MSEC) 80 ms [facility] QT-Interval (MSEC) 410 ms [facility] QTc 467 ms [facility] P [place] 33 degrees [facility] R [place] -22 degrees [facility] T [place] 12 degrees [facility] Diagnosis Normal sinus rhythm Possible Left atrial enlargement Left ventricular hypertrophy ( R in aVL , [place] product ) Abnormal ECG When compared with ECG of 28-NOV-2023 13:24, Minimal criteria for Septal infarct are no longer Present Confirmed by MICHELLE BAEZ M.D ([id number]) on 11/28/2024 1:32:41 PM [facility] 11/28/2024 8:45 AM HAND SPRAY OPERATOR 11/28/2024 1:32 PM HAND SPRAY OPERATOR us Delroy Troncoso MD ECG ORDERABLES Final R esult [facility] * (ABNORMAL) eGFR (11/27/2024 9:57 PM HAND SPRAY OPERATOR) eGFR 27(L) >=60 mL/min/1. 73 m2 Comment: [...] last reviewed 2021. Blood 11/27/2024 9:57 PM HAND SPRAY OPERATOR 11/27/2024 10:18 PM HAND SPRAY OPERATOR us Tito García NP LAB BLOOD ORDERABLES Final Result [facility] [place] [address] * Blood culture Blood (11/27/2024 9:57 PM HAND SPRAY OPERATOR) Report Final Report: No growth Blood 11/27/2024 9:57 PM HAND SPRAY OPERATOR 11/27/2024 10:18 PM HAND SPRAY OPERATOR Narrative [facility] - 12/02/2024 7:01 AM HAND SPRAY OPERATOR Collection->Peripheral 1. Blood cultures are incubated for [...] performance characteristics have been verified by the [facility] Microbiology Laboratory. For questions about this culture, contact the Microbiology Laboratory at [phone]. Interpretive data was last revised on 24. Ana María Vaca NP LAB MICROBIOLOGY - GENERAL ORDERABLES Final Result [facility] Department [place] [address] * (ABNORMAL) CBC without differential (11/27/2024 9:57 PM HAND SPRAY OPERATOR) WBC 4.4 3.8 - 9.9 K/cumm Hgb 9.6(L) 11.9 - 15.5 g/dL [facility] Hct 30.0(L) 35.6 - 45.5 % [facility] Plt 169 150 - 400 K/cumm [facility] MPV 9.6 9.1 - 12.3 fL [facility] RBC 3.29(L) 3.90 - 5.20 M/cumm [facility] MCV 91.2 81.3 - 96.4 fL [facility] MCH 29.2 27.1 - 33.3 pg [facility] MCHC 32.0(L) 32.3 - 35.7 g/dL [facility] RDW CV 17.4(H) 11.1 - 14.9 % [facility] RDW SD 58.7(H) 35.7 - 48.1 fL [facility] NRBC abs 0.00 0.00 - 0.01 K/cumm [facility] Blood 11/27/2024 9:57 PM HAND SPRAY OPERATOR 11/27/2024 10:19 PM HAND SPRAY OPERATOR Tito García COMMUTATOR INSPECTOR LAB BLOOD ORDERABLES Final Result [facility] Department [place] [address] * (ABNORMAL) Phosphorus (11/27/2024 9:57 PM HAND SPRAY OPERATOR) Pathologist [facility] Phosphorus, pl 1.1(L) 2.3 - 4.5 mg/dL Blood 11/27/2024 9:57 PM HAND SPRAY OPERATOR 11/27/2024 10:18 PM HAND SPRAY OPERATOR Tito García COMMUTATOR INSPECTOR LAB BLOOD ORDERABLES Final Result [facility] Department [place] [address] * Magnesium (11/27/2024 9:57 PM HAND SPRAY OPERATOR) Pathologist [facility] Magnesium 1.9 1.4 - 2.5 mg/dL Blood 11/27/2024 9:57 PM HAND SPRAY OPERATOR 11/27/2024 10:18 PM HAND SPRAY OPERATOR Tito García COMMUTATOR INSPECTOR LAB BLOOD ORDERABLES Final Result [facility] Department [place] [address] * (ABNORMAL) Basic metabolic panel (11/27/2024 9:57 PM HAND SPRAY OPERATOR) Sodium 133(L) 135 - 145 mmol/L Potassium, pl 3.5 3.3 - 4.9 mmol/L [facility] Chloride 95(L) 97 - 110 mmol/L [facility] CO2 32 22 - 32 mmol/L [facility] Anion gap 6 2 - 15 mmol/L [facility] BUN 4(L) 6 - 25 mg/dL [facility] Creatinine 2.15(H) 0.60 - 1.10 mg/dL [facility] Glucose 138 70 - 199 mg/dL [facility] Comment: Interpretive Data Fasting glucose >/= 126 [...] 2022. Calcium 8.2(L) 8.5 - 10.3 mg/dL [facility] Blood 11/27/2024 9:57 PM HAND SPRAY OPERATOR 11/27/2024 10:18 PM HAND SPRAY OPERATOR Tito García COMMUTATOR INSPECTOR LAB BLOOD ORDERABLES Final Result [facility] Department [place] [address] * Blood culture Blood (11/27/2024 2:02 PM HAND SPRAY OPERATOR) Report Final Report: No growth Blood 11/27/2024 2:02 PM HAND SPRAY OPERATOR 11/27/2024 2:24 PM HAND SPRAY OPERATOR Narrative [facility] - 12/01/2024 4:00 PM HAND SPRAY OPERATOR Collection->Peripheral 1. Blood cultures are incubated for [...] performance characteristics have been verified by the [facility] Microbiology Laboratory. For questions about this culture, contact the Microbiology Laboratory at [phone]. Interpretive data was last revised on 24. Ana María Vaca NP LAB MICROBIOLOGY - GENERAL ORDERABLES Final Result [facility] Department [place] [address] * TRANSESOPHAGEAL ECHO (KALEN) W DOPPLER/CF WO CONTRAST (11/27/2024 12:37 PM HAND SPRAY OPERATOR) LV EF 60-65 % CONS SCIMAGE Anatomical Region Laterality Modality Echocardiography 11/27/2024 12:0 2 PM HAND SPRAY OPERATOR Narrative 11/27/2024 12:41 PM HAND SPRAY OPERATOR [facility] [place] [place] [address] Transesophageal Echocardiographic Report Patient Name: QUIN MILLER J : 1970 (54y 4m) Gender: F Study Date: 11/27/2024 12:02:57 PM Ht(Inch): Wt(Lb): BSA: Healthcare Facility Administrator: Location: [id number] Order Provider: ESTHER RICHARDS Heart Rate: 78 BMI: Quality: Good Ref Provider: ESTHER RICHARDS Report amended on 2024-12-25 at 11:30:19 HAND SPRAY OPERATOR: Deleted: Tricuspid Valve: [REMOVED] Tricuspid Vegetation: There is no evidence of tricuspid valve vegetation. Previously Signed by:Mac Clifton MD 2024-12-18 15:10:07 HAND SPRAY OPERATOR End of Addendum Report amended on 2024-12-18 at 15:10:07 HAND SPRAY OPERATOR: Added/Modified: Performing Physician [ADDED]: [ADDED] Performed by [...] MD Previously Signed by:John 11/27/2024 12:41:30 PM HAND SPRAY OPERATOR and Mac Clifton MD 11/27/2024 12:41:30 PM HAND SPRAY OPERATOR End of Addendum PROCEDURES: Transesophageal Echo Report: [id number] Echocardiography, transesophageal, real-time with image documentation (2D) including probe placement, image acquisition, interpretation, and report; +[id number] Doppler echocardiography, limited pulsed wave and/or continuous wave with spectral display; +[id number] Doppler echocardiography color flow velocity mapping; [id number] 3D echocardiography, rendering with interpretation and reporting, [...] By: Mac Clifton MD 11/27/2024 12:41:30 PM HAND SPRAY OPERATOR Electronically Signed By: Mac Clifton MD 11/27/2024 12:41:30 PM HAND SPRAY OPERATOR Electronically Amended By: Mac Clifton MD 2024-12-18 15:10:07 HAND SPRAY OPERATOR [ADDENDUM] Electronically Amended By: Mac Clifton MD 12/25/2024 11:30:19 AM HAND SPRAY OPERATOR [ADDENDUM] Procedure Note Mac Negron MD - 12/25/2024 [facility] [place] [address] Transesophageal Echocardiographic Report Patient Name: QUIN MILLER J : 1970 (54y 4m) Gender: F Study Date: 11/27/2024 12:02:57 PM Ht(Inch): Wt(Lb): BSA: Healthcare Facility Administrator: Location: [id number] Order Provider:ESTHER RICHARDS Heart Rate: 78 BMI: Quality: Good Ref Provider: ESTHER RICHARDS Report amended on 2024-12-25 at 11:30:19 HAND SPRAY OPERATOR: Deleted: Tricuspid Valve: [REMOVED] Tricuspid Vegetation: There is no evidence of tricuspid valvevegetation. Previously Signed by:Mac Clifton MD 2024-12-18 15:10:07 HAND SPRAY OPERATOR End of Addendum Report amended on 2024-12-18 at 15:10:07 HAND SPRAY OPERATOR: Added/Modified: Performing Physician [ADDED]: [ADDED] Performed by [...] inserted by Mac Clifton MD Previously Signed by:[email or web address] 11/27/2024 12:41:30 PM HAND SPRAY OPERATOR and Raquel GRANADOS 11/27/2024 12:41:30 PM HAND SPRAY OPERATOR End of Addendum PROCEDURES: Transesophageal Echo Report: [id number] Echocardiography, transesophageal,real-time with image documentation (2D) including probe placement, image acquisition,interpretation, and report; +[id number] Doppler echocardiography, limited pulsed wave and/orcontinuous wave with spectral display; +[id number] Doppler echocardiography color flow velocitymapping; [id number] 3D echocardiography, rendering with interpretation and reporting, [...] By: Mac Clifton MD 11/27/2024 12:41:30 PM HAND SPRAY OPERATOR Electronically Signed By: Mac Clifton MD 11/27/2024 12:41:30 PM HAND SPRAY OPERATOR Electronically Amended By: Mac Clifton MD 2024-12-18 15:10:07 HAND SPRAY OPERATOR [ADDENDUM] Electronically Amended By: Mac Clifton MD 12/25/2024 11:30:19 AM HAND SPRAY OPERATOR [ADDENDUM] us Esther Richards COMMUTATOR INSPECTOR CV ECHO PROCEDUR ES Edited Result - Final * POC Blood Gas and Chemistries, Arterial - (11/27/2024 11:02 AM HAND SPRAY OPERATOR) K POC 4.6 3.3 - 4.9 mmol/L Comment: Interpretive Data Not all point of care methods assess for hemolysis. Confirm with instrument and retest K+ if not consistent with clinical signs and symptoms. Current Interpretive Data was last revised on 2024. Blood 11/27/2024 11:0 2 AM HAND SPRAY OPERATOR 11/27/2024 11:02 AM HAND SPRAY OPERATOR us Delroy Troncoso MD LAB POCT ORDERABLES - D EVICE Final Result [facility] Department [place] [address] * MRI Brain WO Contrast (11/27/2024 2:47 AM HAND SPRAY OPERATOR) Anatomical Region Laterality Modality Head and Neck N/A Magnetic Resonan ce 11/27/2024 6:1 5 AM HAND SPRAY OPERATOR Impressions 11/27/2024 6:15 AM HAND SPRAY OPERATOR 1. No acute intracranial abnormality identified including no acute infarction or evidence of intracranial hemorrhage. 2. A few punctate foci of subcortical FLAIR hyperintensity. While nonspecific, this may represent sequela of mild chronic small vessel ischemic disease. 3. Right ostiomeatal unit pattern sinus disease. Electronically signed by: Chacho Hartman M.D. Narrative 11/27/2024 6:15 AM HAND SPRAY OPERATOR EXAMINATION: Magnetic resonance imaging (MRI) of the [...] signed by: Chacho Hartman M.D. Esther Richards COMMUTATOR INSPECTOR IMG MRI PROCEDUR ES Final Result * (ABNORMAL) eGFR (11/26/2024 11:09 PM HAND SPRAY OPERATOR) eGFR 12(L) >=60 mL/min/1. 73 m2 Comment: [...] reviewed 2021. Blood 11/26/2024 11:0 9 PM HAND SPRAY OPERATOR 11/26/2024 11:56 PM HAND SPRAY OPERATOR Tito García NP LAB BLOOD ORDERABLES Final Result [facility] Department [place] [address] * (ABNORMAL) CBC without differential (11/26/2024 11:09 PM HAND SPRAY OPERATOR) WBC 5.1 3.8 - 9.9 K/cumm Hgb 9.0(L) 11.9 - 15.5 g/dL [facility] Hct 28.7(L) 35.6 - 45.5 % [facility] Plt 175 150 - 400 K/cumm [facility] MPV 10.8 9.1 - 12.3 fL [facility] RBC 3.09(L) 3.90 - 5.20 M/cumm [facility] MCV 92.9 81.3 - 96.4 fL [facility] MCH 29.1 27.1 - 33.3 pg [facility] MCHC 31.4(L) 32.3 - 35.7 g/dL [facility] RDW CV 17.9(H) 11.1 - 14.9 % [facility] RDW SD 60.7(H) 35.7 - 48.1 fL [facility] NRBC abs 0.00 0.00 - 0.01 K/cumm [facility] Blood 11/26/2024 11:0 9 PM HAND SPRAY OPERATOR 11/26/2024 11:52 PM HAND SPRAY OPERATOR Tito García NP LAB BLOOD ORDERABLES Final Result Performing Organization Address [facility] Co de Phone Number [facility] Department [employer] [place] [address] * Type and screen (11/26/2024 11:09 PM HAND SPRAY OPERATOR) Pathologist [facility] ABO Rh B Positive Radha, indirect Negative [facility] Blood 11/26/2024 11:0 9 PM HAND SPRAY OPERATOR 11/27/2024 12:06 AM HAND SPRAY OPERATOR Narrative [facility] - 11/27/2024 1:18 AM HAND SPRAY OPERATOR Has the patient had Daratumumab or Isatuximab in the past 6 months?->Unknown Tito García NP LAB BLOOD BANK TEST ORDERA BLES Final Result Performing Organization Address [facility]/ZIP Co de Phone Number [facility] [employer] [place] [address] * (ABNORMAL) Phosphorus (11/26/2024 11:09 PM HAND SPRAY OPERATOR) Phosphorus, pl 1.8(L) 2.3 - 4.5 mg/dL Blood 11/26/2024 11:0 9 PM HAND SPRAY OPERATOR 11/26/2024 11:56 PM HAND SPRAY OPERATOR Tito García COMMUTATOR INSPECTOR LAB BLOOD ORDERABLES Final Result [facility] [place] [address] * Magnesium (11/26/2024 11:09 PM HAND SPRAY OPERATOR) Pathologist [facility] Magnesium 2.4 1.4 - 2.5 mg/dL Blood 11/26/2024 11:0 9 PM HAND SPRAY OPERATOR 11/26/2024 11:56 PM HAND SPRAY OPERATOR Tito García COMMUTATOR INSPECTOR LAB BLOOD ORDERABLES Final Result Performing Organization Address [facility] de Phone Number [facility] [place] [address] * (ABNORMAL) Basic metabolic panel (11/26/2024 11:09 PM HAND SPRAY OPERATOR) [facility] Sodium 131(L) 135 - 145 mmol/L Potassium, pl 4.5 3.3 - 4.9 mmol/L [facility] Comment:Hemolyzed; Potassium value may be falsely elevated by as much as 0.6-1.0 mmol/L. Suggest redraw and reanalysis. Chloride 97 97 - 110 mmol/L [facility] CO2 29 22 - 32 mmol/L [facility] Anion gap 5 2 - 15 mmol/L [facility] BUN 12 6 - 25 mg/dL [facility] Creatinine 4.29(H) 0.60 - 1.10 mg/dL [facility] Glucose 160 70 - 199 mg/dL [facility] Comment: Interpretive Data Fasting glucose >/= 126 [...] 2022. Calcium 8.3(L) 8.5 - 10.3 mg/dL [facility] Blood 11/26/2024 11:0 9 PM HAND SPRAY OPERATOR 11/26/2024 11:56 PM HAND SPRAY OPERATOR Tito García COMMUTATOR INSPECTOR LAB BLOOD ORDERABLES Final Result [facility] Department [place] [address] * (ABNORMAL) Potassium (11/26/2024 8:26 AM HAND SPRAY OPERATOR) Potassium, pl 5.0(H) 3.3 - 4.9 mmol/L Blood 11/26/2024 8:26 AM HAND SPRAY OPERATOR 11/26/2024 9:40 AM HAND SPRAY OPERATOR Ana María Vaca COMMUTATOR INSPECTOR LAB BLOOD ORDERABLES Final Result Performing Organization Address [facility] Co de Phone Number [facility] Department [place] [address] * Tacrolimus level trough (11/26/2024 5:10 AM HAND SPRAY OPERATOR) Tacrolimus trough 2.0 ng/mL Comment: Interpretive Data Testing performed by liquid chromatography-tandem mass spectrometry. Therapeutic concentrations vary depending on type of transplanted organ and time elapsed since transplant. Typical trough concentrations range from 5-15 ng/mL. This test was developed and its performance characteristics determined by the [facility] consistent with CLIA requirements. This test has not been cleared or approved by the [place] Food and Drug administration. Current interpretive data last reviewed 2020. Blood 11/26/2024 5:10 AM HAND SPRAY OPERATOR 11/26/2024 5:54 AM HAND SPRAY OPERATOR Narrative [facility] 11/26/2024 11:14 AM HAND SPRAY OPERATOR Please collect 12 hours after last dose of tacrolimus. Thank you! Alejandra Bautista COMMUTATOR INSPECTOR LAB BLOOD ORDERABLES Sarah l Result Performing Organization Address [facility] Co de Phone Number [facility] Department [place] [address] * (ABNORMAL) Potassium (11/26/2024 5:10 AM HAND SPRAY OPERATOR) Potassium, pl 6.0(H) 3.3 - 4.9 mmol/L Comment:Hemolyzed; Potassium value may be falsely elevated by as much as 0.6-1.0 mmol/L. Suggest redraw and reanalysis. Blood 11/26/2024 5:10 AM HAND SPRAY OPERATOR 11/26/2024 5:53 AM HAND SPRAY OPERATOR Ana María Vaca COMMUTATOR INSPECTOR LAB BLOOD ORDERABLES Final Result Performing Organization Address [facility] Co de Phone Number [facility] Department [place] [address] * CTA Chest Abdomen Pelvis (11/26/2024 1:56 AM HAND SPRAY OPERATOR) Anatomical Region Laterality Modality Body N/A Computed Tomogra phy 11/26/2024 9:22 AM HAND SPRAY OPERATOR Impressions 11/26/2024 10:25 AM HAND SPRAY OPERATOR 1. Location of vasculature posterior to sternum [...] Vinny Gomez M.D. Narrative 11/26/2024 10:25 AM HAND SPRAY OPERATOR EXAMINATION: CT of the chest, abdomen, and [...] adrenal glands are normal. There is bilateral chipewwa renal atrophy. There are multiple small bilateral nonobstructing renal stones and cysts, including some cysts with thin septations. No hydronephrosis of the chipewwa kidneys. There is a right iliac fossa [...] adrenal glands are normal. There is bilateral chipewwa renal atrophy. There are multiple small bilateral nonobstructing renal stones and cysts, including some cysts with thin septations. No hydronephrosis of the chipewwa kidneys. There is a right iliac fossa [...] it. Electronically signed by: Vinny Gomez M.D. us Amado Patiño NP IMG CT PROCEDURES Final Resu lt * CT Head WO Contrast (11/26/2024 1:56 AM HAND SPRAY OPERATOR) Anatomical Region Laterality Modality Head and Neck N/A Computed Tomogra phy 11/26/2024 4:32 AM HAND SPRAY OPERATOR Impressions 11/26/2024 2:18 PM HAND SPRAY OPERATOR 1. No acute intracranial hemorrhage or acute edematous large territory infarct. 2. Right maxillary, anterior ethmoid, and frontal sinus mucosal opacification suggesting ostiomeatal unit obstructive pattern. Dictated by: Jaskaran Brian MD The radiology attending physician has personally reviewed this study, and had reviewed and/or edited this written report and agrees with it. Electronically signed by: Amrik Narvaez M.D. Narrative 11/26/2024 2:18 PM HAND SPRAY OPERATOR EXAMINATION: CT head without contrast HISTORY: Preoperative [...] it. Electronically signed by: Amrik Narvaez M.D. us Amado Patiño NP IMG CT PROCEDURES Final Resu lt * (ABNORMAL) eGFR (11/25/2024 11:33 PM HAND SPRAY OPERATOR) eGFR 21(L) >=60 mL/min/1. 73 m2 Comment: [...] reviewed 2021. Blood 11/25/2024 11:3 3 PM HAND SPRAY OPERATOR 11/26/2024 12:13 AM HAND SPRAY OPERATOR us Tito García NP LAB BLOOD ORDERABLES Final Result [facility] [place] [address] * (ABNORMAL) CBC without differential (11/25/2024 11:33 PM HAND SPRAY OPERATOR) WBC 6.2 3.8 - 9.9 K/cumm Hgb 9.0(L) 11.9 - 15.5 g/dL [facility] Hct 28.5(L) 35.6 - 45.5 % [facility] Plt 173 150 - 400 K/cumm [facility] MPV 10.3 9.1 - 12.3 fL [facility] RBC 3.06(L) 3.90 - 5.20 M/cumm [facility] MCV 93.1 81.3 - 96.4 fL [facility] MCH 29.4 27.1 - 33.3 pg [facility] MCHC 31.6(L) 32.3 - 35.7 g/dL [facility] RDW CV 17.9(H) 11.1 - 14.9 % [facility] RDW SD 61.8(H) 35.7 - 48.1 fL [facility] NRBC abs 0.00 0.00 - 0.01 K/cumm [facility] Blood 11/25/2024 11:3 3 PM HAND SPRAY OPERATOR 11/26/2024 12:19 AM HAND SPRAY OPERATOR us Tito García COMMUTATOR INSPECTOR LAB BLOOD ORDERABLES Final Result [facility] Department [employer] [place] [address] * (ABNORMAL) Phosphorus (11/25/2024 11:33 PM HAND SPRAY OPERATOR) Phosphorus, pl 1.6(L) 2.3 - 4.5 mg/dL Blood 11/25/2024 11:3 3 PM HAND SPRAY OPERATOR 11/26/2024 12:13 AM HAND SPRAY OPERATOR Tito García COMMUTATOR INSPECTOR LAB BLOOD ORDERABLES Final Result [facility] [place] [address] * Magnesium (11/25/2024 11:33 PM HAND SPRAY OPERATOR) Magnesium 2.2 1.4 - 2.5 mg/dL Blood 11/25/2024 11:3 3 PM HAND SPRAY OPERATOR 11/26/2024 12:13 AM HAND SPRAY OPERATOR Tito García COMMUTATOR INSPECTOR LAB BLOOD ORDERABLES Final Result [facility] Department [place] [address] * (ABNORMAL) Creatine kinase (CK), total (11/25/2024 11:33 PM HAND SPRAY OPERATOR) Pathologist [facility] CK 26(L) 30 - 200 Units/L Blood 11/25/2024 11:3 3 PM HAND SPRAY OPERATOR 11/26/2024 12:13 AM HAND SPRAY OPERATOR Ana María Vaca COMMUTATOR INSPECTOR LAB BLOOD ORDERABLES Final Result Performing Organization Address [facility] Co de Phone Number [facility] Department [place] [address] * (ABNORMAL) Basic metabolic panel (11/25/2024 11:33 PM HAND SPRAY OPERATOR) [facility] Sodium 132(L) 135 - 145 mmol/L Potassium, pl 4.3 3.3 - 4.9 mmol/L [facility] Chloride 98 97 - 110 mmol/L [facility] Comment:Repeated and Verifie d CO2 34(H) 22 - 32 mmol/L [facility] Anion gap <1(L) 2 - 15 mmol/L [facility] Comment:Repeated and Verifie d BUN 8 6 - 25 mg/dL [facility] Creatinine 2.62(H) 0.60 - 1.10 mg/dL [facility] Glucose 116 70 - 199 mg/dL [facility] Comment: Interpretive Data Fasting glucose >/= 126 [...] 2022. Calcium 8.0(L) 8.5 - 10.3 mg/dL [facility] Blood 11/25/2024 11:3 3 PM HAND SPRAY OPERATOR 11/26/2024 12:13 AM HAND SPRAY OPERATOR us Tito García COMMUTATOR INSPECTOR LAB BLOOD ORDERABLES Final Result Performing Organization Address [facility] Co de Phone Number [facility] Department [place] [address] * [place] Outside Reference (11/25/2024 3:55 PM HAND SPRAY OPERATOR) Impressions RAD_[facility] - 11/25/2024 3:55 PM HAND SPRAY OPERATOR These images are for Reference purposes only and have not been reviewed by [facility] Radiology. There will be no report generated by a [facility] Radiologist. Narrative [facility] - 11/25/2024 3:55 PM HAND SPRAY OPERATOR EXAMINATION: Images For Reference Purposes Only us Delroy Troncoso MD IM US PROCEDURES Final Result Performing Organization Address [facility] Co de Phone Number [email or web address] * Hepatitis B Surface Antigen Blood (11/25/2024 3:24 PM HAND SPRAY OPERATOR) HepBsAg Nonreactive Nonreactive Blood 11/25/2024 3:24 PM HAND SPRAY OPERATOR 11/25/2024 3:59 PM HAND SPRAY OPERATOR us Edmundo Velasquez COMMUTATOR INSPECTOR LAB MICROBIOLOGY - GENE RAL ORDERABLES Final Result Performing Organization Address [facility] Co de Phone Number [facility] Department [place] [address] * Infection Prevention Leidy auris PCR, surveillance Axilla/Groin (11/25/2024 9:57 AM HAND SPRAY OPERATOR) Pathologist [facility] Leidy auris DNA Not Detected Not Detected [facility] Comment: Interpretive Data Testing performed by [facility] Molecular Infectious Disease Laboratory using the Jannie dawson [id number] Leidy auris assay. This assay detects DNA from Leidy auris using Real-Time PCR. This assay is laboratory developed and is not cleared by the [place] Food and Drug Administration. The performance characteristics have been verified by the [facility] Molecular Infectious Disease Laboratory. Axilla/Groin 11/25/2024 9:57 AM HAND SPRAY OPERATOR 11/25/2024 10:13 AM HAND SPRAY OPERATOR Paco Hunter MD LAB MICROBIOLOGY - GENERAL ORDER CHERI Final Result Performing Organization Address [facility] de Phone Number [facility] Department [place] [address] [facility] * Tacrolimus level trough (11/25/2024 9:57 AM HAND SPRAY OPERATOR) [facility] Tacrolimus trough 3.8 ng/mL Comment: Interpretive Data Testing performed by liquid chromatography-tandem mass spectrometry. Therapeutic concentrations vary depending on type of transplanted organ and time elapsed since transplant. Typical trough concentrations range from 5-15 ng/mL. This test was developed and its performance characteristics determined by the [facility] Laboratory consistent with CLIA requirements. This test has not been cleared or approved by the [place] Food and Drug administration. Current interpretive data last reviewed 2020. Blood 11/25/2024 9:57 AM HAND SPRAY OPERATOR 11/25/2024 10:20 AM HAND SPRAY OPERATOR Amado Patiño NP LAB BLOOD ORDERABLES Final R esult Performing Organization Address [facility] Co de Phone Number [facility] Department [place] [address] * (ABNORMAL) Potassium, whole blood (11/25/2024 7:47 AM HAND SPRAY OPERATOR) [facility] Potassium, bld 6.4(C) 3.3 - 4.9 mmol/L Comment: Verified Specimen not hemolyzed. Repeated and verified. Blood 11/25/2024 7:47 AM HAND SPRAY OPERATOR 11/25/2024 7:56 AM HAND SPRAY OPERATOR Amado Patiño NP LAB BLOOD ORDERABLES Final R esult Performing Organization Address [facility] Co de Phone Number [facility] [employer] [place] [address] * Critical Result Callback Chemistry (11/25/2024 7:47 AM HAND SPRAY OPERATOR) Date Notified [id number] Time Notified 819 [facility] TestName Potassium WB [facility] Called/Read Back Anthony JARAMILLO Credentials RN [facility] Called By WALKER JARAMILLO Blood 11/25/2024 7:47 AM HAND SPRAY OPERATOR 11/25/2024 7:56 AM HAND SPRAY OPERATOR Amado Patiño NP LAB BLOOD ORDERABLES Final R esult Performing Organization Address [facility] Co de Phone Number [facility] [place] [address] * POCT glucose (11/25/2024 7:37 AM HAND SPRAY OPERATOR) Glucose, POC 77 70 - 199 mg/dL Blood 11/25/2024 7:37 AM HAND SPRAY OPERATOR 11/25/2024 7:37 AM HAND SPRAY OPERATOR Delroy Troncoso MD LAB POCT ORDERABLES - D ZAC Final Result Performing Organization Address [facility] Co de Phone Number [facility] [place] [address] * (ABNORMAL) eGFR (11/25/2024 5:43 AM HAND SPRAY OPERATOR) eGFR 8(L) >=60 mL/min/1. 73 m2 Comment: [...] last reviewed 2021. Blood 11/25/2024 5:43 AM HAND SPRAY OPERATOR 11/25/2024 6:45 AM HAND SPRAY OPERATOR us Delroy Troncoso MD LAB BLOOD ORDERABLES Fi nal Result Performing Organization Address City[facility]/ZIP Co de Phone Number [facility] Department [place] [address] * Critical Result Callback Chemistry (11/25/2024 5:43 AM HAND SPRAY OPERATOR) Date Notified [id number] Time Notified 716 [facility] JARAMILLO TestName Potassium Plas [facility] Called/Read Back Maria Isabel JARAMILLO Credentials FRANCHESCA JARAMILLO Called By hunter JARAMILLO Blood 11/25/2024 5:43 AM HAND SPRAY OPERATOR 11/25/2024 6:45 AM HAND SPRAY OPERATOR Delroy Troncoso MD LAB BLOOD ORDERABLES Fi nal Result [facility] Department [place] [address] * Blood culture Blood (11/25/2024 5:43 AM HAND SPRAY OPERATOR) Report Final Report: No growth Blood 11/25/2024 5:43 AM HAND SPRAY OPERATOR 11/25/2024 7:25 AM HAND SPRAY OPERATOR Narrative [facility] - 11/29/2024 12:00 PM HAND SPRAY OPERATOR Collection->Peripheral 1. Blood cultures are incubated for [...] performance characteristics have been verified by the [facility] Microbiology Laboratory. For questions about this culture, contact the Microbiology Laboratory at [phone]. Interpretive data was last revised on 24. Delroy Troncoso MD LAB MICROBIOLOGY - [facility] ORDERABLES Final Result [facility] Department [place] [address] * Blood culture Blood (11/25/2024 5:43 AM HAND SPRAY OPERATOR) Report Final Report: No growth Blood 11/25/2024 5:43 AM HAND SPRAY OPERATOR 11/25/2024 7:25 AM HAND SPRAY OPERATOR Narrative [facility] - 11/29/2024 12:00 PM HAND SPRAY OPERATOR Collection->Peripheral 1. Blood cultures are incubated for [...] performance characteristics have been verified by the [facility] Microbiology Laboratory. For questions about this culture, contact the Microbiology Laboratory at [phone]. Interpretive data was last revised on 24. Delroy Troncoso MD LAB MICROBIOLOGY - GENE RAL ORDERABLES Final Result Performing Organization Address [facility] de Phone Number [facility] Department [place] [address] * aPTT (11/25/2024 5:43 AM HAND SPRAY OPERATOR) [facility] aPTT 33 28 - 38 sec Comment: Interpretive Data Heparin therapeutic range: 66.0 - 100.0 seconds. Range based on correlation with therapeutic heparin activity range of 0.3 - 0.7 Units/mL. Current interpretive data was last revised on 2023. Blood 11/25/2024 5:43 AM HAND SPRAY OPERATOR 11/25/2024 7:00 AM HAND SPRAY OPERATOR Delroy Troncoso MD LAB BLOOD ORDERABLES Fi nal Result Performing Organization Address [facility] Co de Phone Number [facility] Department [place] [address] * Protime-INR (11/25/2024 5:43 AM HAND SPRAY OPERATOR) Pathologist [facility] PT 12.5 9.7 - 13.0 sec INR 1.15 0.90 - 1.20 [facility] Comment: Interpretive data Oral anticoagulant therapeutic ranges: Venous thromboembolism prophylaxis or treatment: 2.0-3.0 CARDIOLOGY Standard range: 2.0-3.0 High-intensity range: 2.5-3.5 Refer to indication-specific guidelines for appropriate target ranges for prosthetic heart valve replacement. Current interpretive data was last revised on 2019. Blood 11/25/2024 5:43 AM HAND SPRAY OPERATOR 11/25/2024 7:00 AM HAND SPRAY OPERATOR us Delroy Troncoso MD LAB BLOOD ORDERABLES Fi nal Result [facility] Department [place] [address] * (ABNORMAL) CBC without differential (11/25/2024 5:43 AM HAND SPRAY OPERATOR) [facility] WBC 5.3 3.8 - 9.9 K/cumm Hgb 9.2(L) 11.9 - 15.5 g/dL [facility] Hct 29.7(L) 35.6 - 45.5 % [facility] Plt 172 150 - 400 K/cumm [facility] MPV 9.8 9.1 - 12.3 fL [facility] RBC 3.20(L) 3.90 - 5.20 M/cumm [facility] MCV 92.8 81.3 - 96.4 fL [facility] MCH 28.8 27.1 - 33.3 pg [facility] MCHC 31.0(L) 32.3 - 35.7 g/dL [facility] RDW CV 17.6(H) 11.1 - 14.9 % [facility] RDW SD 59.6(H) 35.7 - 48.1 fL [facility] NRBC abs 0.00 0.00 - 0.01 K/cumm [facility] Blood 11/25/2024 5:43 AM HAND SPRAY OPERATOR 11/25/2024 6:45 AM HAND SPRAY OPERATOR Delroy Troncoso MD LAB BLOOD ORDERABLES Fi nal Result Performing Organization Address [facility]/ZIP Co de Phone Number [facility] [place] [address] * Type and screen (11/25/2024 5:43 AM HAND SPRAY OPERATOR) Pathologist [facility] ABO Rh B Positive Radha, indirect Negative [facility] Blood 11/25/2024 5:43 AM HAND SPRAY OPERATOR 11/25/2024 6:50 AM HAND SPRAY OPERATOR Narrative [facility] - 11/25/2024 7:53 AM HAND SPRAY OPERATOR Has the patient had Daratumumab or Isatuximab in the past 6 months?->Unknown Delroy Troncoso MD LAB BLOOD BANK TEST ORD ERABLES Final Result Performing Organization Address [facility] Co de Phone Number [facility] [place] [address] * (ABNORMAL) Comprehensive metabolic panel (11/25/2024 5:43 AM HAND SPRAY OPERATOR) [facility] Sodium 134(L) 135 - 145 mmol/L Potassium, pl 6.8(C) 3.3 - 4.9 mmol/L [facility] Comment:Hemolyzed; Potassium value may be falsely elevated by as much as 0.3-0.5 mmol/L. Suggest redraw and reanalysis. Chloride 107 97 - 110 mmol/L [facility] CO2 24 22 - 32 mmol/L [facility] Anion gap 3 2 - 15 mmol/L [facility] BUN 22 6 - 25 mg/dL [facility] Creatinine 5.64(H) 0.60 - 1.10 mg/dL [facility] Glucose 61(L) 70 - 199 mg/dL [facility] Comment: Interpretive Data Fasting glucose >/= 126 [...] 2022. Calcium 8.8 8.5 - 10.3 mg/dL [facility] Bilirubin, total 0.6 0.1 - 1.2 mg/dL [facility] Protein, pl 8.1 6.5 - 8.5 g/dL [facility] Albumin 2.5(L) 3.5 - 5.0 g/dL [facility] Alk phos 135(H) 40 - 130 Units/L [facility] ALT 17 7 - 45 Units/L [facility] AST 28 10 - 45 Units/L [facility] Comment:Hemolyzed; result ma y be falsely elevated Blood 11/25/2024 5:43 AM HAND SPRAY OPERATOR 11/25/2024 6:45 AM HAND SPRAY OPERATOR us Delroy Troncoso MD LAB BLOOD ORDERABLES Fi nal Result [facility] Department [place] [address] * X-ray chest 1 view (Portable) (11/25/2024 4:44 AM HAND SPRAY OPERATOR) Anatomical Region Laterality Modality Body, Chest N/A Computed Radiogr aphy 11/25/2024 10:4 0 AM HAND SPRAY OPERATOR Impressions 11/25/2024 1:52 PM HAND SPRAY OPERATOR FINDINGS/IMPRESSION: Left upper extremity vascular stent present. Lungs are clear. No pleural effusion. No pneumothorax. Cardiomediastinal silhouette is within normal limits, stable from prior. Dictated by: Gunnar Wise MD The radiology attending physician has personally reviewed this study, and had reviewed and/or edited this written report and agrees with it. Electronically signed by: Shun Gamboa M.D. Narrative 11/25/2024 1:52 PM HAND SPRAY OPERATOR EXAMINATION: XR CHEST 1 VIEW HISTORY: Pleural [...] signed by: Shun Gamboa M.D. us Delroy Troncoso MD IMG XR PROCEDURES Final Result * Hepatitis C antibody Blood (11/28/2023 1:19 PM HAND SPRAY OPERATOR) Hep C Ab Nonreactive Nonreactive [facility] Comment:Antibodies to HCV no t detected. Does NOT exclude the possibility of recent exposure to HCV. Current interpretive data was last revised on 22 Blood 11/28/2023 1:19 PM HAND SPRAY OPERATOR 11/28/2023 2:18 PM HAND SPRAY OPERATOR us Rachael Piña MD LAB MICROBIOLOGY - GENERAL ORDER CHERI Final Result [facility] Department [place] [address] * Diagnostic Mammogram (07/06/2021 1:40 PM CDT) Anatomical Region Laterality Modality Breast Mammography Impressions 07/06/2021 1:40 PM CDT BIRADS 1: Assessment complete. Negative. Recommend annual screening mammography. Narrative 07/06/2021 1:40 PM CDT FINDINGS: The previously identified asymmetric density presses out into normal appearing fibroglandular tissue. No other asymmetries, suspicious calcifications, or architectural distortion are seen. us Historical Provider IMG MAMMO PROCEDURES Sarah l Result from Last 3 Months or Most Recently Relevant to Health Maintenance
[2025-02-21 09:13] VITALS: BP 115/73; PULSE 83; RESP 18; TEMP 36.7; O2SAT 100
--- NOTE | 2025-02-21 09:28 | PM.HPGS ---
History of Present Illness History of Present Illness Consent: Risks, benefits, and alternatives have been discussed and questions answered. Patient agrees to proceed with procedure. Chief complaint: hx of colon polyps Narrative: Umesh Miller is a 54 year old female with large TA polyps removed 6 months ago Review of Systems Review of Systems: All systems reviewed & are unremarkable except as noted in HPI and below PMFSH Past Medical History Medical History (Updated 12/24/24 @ 10:09 by Shun Germain, DO) Polyposis of colon FHx: mitral valve repair Chronic lupus nephritis Colon polyps Diarrhea Rectal bleeding History of kidney disease Allergies Screening mammogram, encounter for Dialysis patient renal failure History of endometrial biopsy (~01/23/16) menometrorrhagia Anemia Trichomonas vaginalis (TV) infection (05/04/16) High cholesterol HPV in female Abnormal Pap smear of cervix 07/14/15 lgsil ; 05/08/14 lgsil; 10/16/12 ASCUS / +HPV Hx of blood clots (~12/2012) 3 rt leg, 2 rt arm History of 2019 novel coronavirus disease (COVID-19) Chronic kidney disease, stage 5, kidney failure Glomerular disorders in diseases classified elsewhere Hypertensive chronic kidney disease with stage 1 through stage 4 chronic kidney disease, or unspecified chronic kidney disease Intractable migraine without aura and without status migrainosus Surgical History Surgical History History of total hysterectomy February 2017 History of elective x2 History of robot-assisted laparoscopic hysterectomy RA TLH w/RSO--HGSIL, ovarian cyst, leiomyoma H/O LEEP 12/31/15 HGSIL TRAVIS II History of dilation and curettage (08/03/15) hscope d&c/Novasure endometrial ablation History of endometrial ablation (08/03/15) hscope d&c/Novasure endometrial ablation History of left salpingo-oophorectomy (08/31/15) EXP LAP, LSO, ADHESIOLYSIS left dermoid cyst, left & right hydrosalpinx History of colposcopy with cervical biopsy 12/13/12 TRAVIS I 09/02/15 TRAVIS II 12/09/15 HGSIL History of ovarian cystectomy (07/11/07) EXP LAP; RIGHT OVARIAN CYSTECTOMY, R PARTIAL SALPINGECTOMY - R Ovarian Cyst, R hydrosalpinx History of laparoscopy (03/23/05) dx lap, chromopertubation - bilateral salpinx, pelvic adhesions, left ovarian enlargement, bilaterally blocked fallopian tubes Kidney transplant recipient (~08/2019) Family History Family History Mother Hypertension Father Family history of type 2 diabetes mellitus Family history of heart disease in male family member before age 55 Cerebrovascular accident Hypertension Diabetes mellitus Other Cancer Diabetes mellitus Hypertension Family history of heart disease in male family member before age 55 Social History Social History Smoking status: Never smoker Second hand tobacco smoke exposure: Yes Alcohol intake: never Substance use: never Substance use type: does not use Do You Feel Safe in your Home?: Yes Lack of Transportation: No Lack of Food: Never True Current Housing: I Have Housing Concerned About Future Housing: No Difficulty Paying Gas/Electric Bills: No Difficulty Paying for Meds: No Currently Unemployed: No Education: Decline to Answer Difficulty w/ Childcare or Family Care: Decline to Answer Living arrangements: alone Additional living arrangements comments: Occupation/Education: occupation 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 [employer] Gender identity (if verbalized by the patient): Female Sexual Orientation (if Verbalized by the Patient): Straight or Heterosexual Spiritual care concerns: No Meds Home Medications and Allergies Home Medications ?Medication ?Instructions ?Recorded ?Confirmed ?Type cholecalciferol (vitamin D3) 50 2,000 unit PO DAILY 10/02/19 02/21/25 History mcg (2,000 unit) tablet tacrolimus 1 mg capsule, 1 mg PO Q12H 10/02/19 02/21/25 History immediate-release furosemide 80 mg tablet 80 mg PO BID 05/24/22 02/21/25 History biotin 10,000 mcg capsule 10,000 mcg PO DAILY 08/02/22 02/21/25 History multivitamin and minerals 1 tablet PO DAILY 09/12/22 02/21/25 History no.11-folic acid 5 mg tablet (Dialyvite 5000) atorvastatin 20 mg tablet 20 mg PO DAILY #90 tabs 02/08/24 02/21/25 Rx prednisone 5 mg tablet 5 mg PO DAILY 11/13/24 02/21/25 History carvedilol 25 mg tablet See Rx Instructions .Route 01/07/25 02/12/25 Rx .COMPLEX #180 tabs diltiazem HCl 240 mg 240 mg PO DAILY #30 caps 01/31/25 02/21/25 Rx capsule,extended release 24 hr doxazosin 8 mg tablet 8 mg PO QPM 02/12/25 02/21/25 History Allergies Allergy/AdvReac Type Severity Reaction Status Date / Time lisinopril Allergy Severe Swelling Verified 02/21/25 09:11 of Lip/Tongue/Throat CHRIST Inhibitors Allergy Intermediate SWELLING Verified 02/21/25 09:11 ibuprofen Allergy Intermediate UNABLE TO Verified 02/21/25 09:11 TAKE WITH LUPUS NEPHRITIS Vital Signs Vital Signs - 24 hr 02/21/25 09:13 Temperature 98.1 F Pulse Rate 83 Respiratory Rate 18 Blood Pressure 115/73 Pulse Oximetry 100 Oxygen Delivery Room Air Exam Const: General: comfortable and no acute distress HENMT: Face/Nose/Sinus: Normal nares present Eyes: General: appearance normal, both eyes and all related structures Neck: Neck: no JVD Resp: Auscultation: clear to auscultation bilaterally Cardio: Rate: regular rate Rhythm: regular rhythm GI: Inspection: non-distended GI Palp: Yes Soft to palpation Neuro: Speech: normal speech Extrem: General: normal to inspection Psych: Mental Status: mental status grossly normal Assessment and Plan Assessment and plan (1) Colon polyps: Code(s): K63.5 - Polyp of colon Status: Acute Assessment and Plan: colonoscopy
[2025-02-21] MEDS: AMPICILLIN 2 GM/NS 100 ML 2 GM/100 ML BAG IVPB (09:38)
--- NOTE | 2025-02-21 09:38 | WPDANESEPPF ---
Anes - Initial Pre Proc Eval Procedure: Operation Date: 02/21/25 10:00 Proposed Procedures p Colonoscopy - Javier Louis MD Date/Time: 02/21/25 09:38 Surgeon: Javier Louis MD Pre Op Diagnosis: hx of colon polyps Patient Data Age: 54 Gender: F Height: 1.6 m Weight: 55.8 kg Last Vital Signs Temp 36.7 C 02/21/25 09:13 Pulse 83 02/21/25 09:13 Resp 18 02/21/25 09:13 BP 115/73 02/21/25 09:13 Pulse Ox 100 02/21/25 09:13 O2 Del Method Room Air 02/21/25 09:13 Allergies Allergy/AdvReac Type Severity Reaction Status Date / Time lisinopril Allergy Severe Swelling Verified 02/21/25 09:11 of Lip/Tongue/Throat CHRIST Inhibitors Allergy Intermediate SWELLING Verified 02/21/25 09:11 ibuprofen Allergy Intermediate UNABLE TO Verified 02/21/25 09:11 TAKE WITH LUPUS NEPHRITIS Home Medications ?Medication ?Instructions ?Recorded ?Confirmed ?Type cholecalciferol (vitamin D3) 50 2,000 unit PO DAILY 10/02/19 02/21/25 History mcg (2,000 unit) tablet tacrolimus 1 mg capsule, 1 mg PO Q12H 10/02/19 02/21/25 History immediate-release furosemide 80 mg tablet 80 mg PO BID 05/24/22 02/21/25 History biotin 10,000 mcg capsule 10,000 mcg PO DAILY 08/02/22 02/21/25 History multivitamin and minerals 1 tablet PO DAILY 09/12/22 02/21/25 History no.11-folic acid 5 mg tablet (Dialyvite 5000) atorvastatin 20 mg tablet 20 mg PO DAILY #90 tabs 02/08/24 02/21/25 Rx prednisone 5 mg tablet 5 mg PO DAILY 11/13/24 02/21/25 History carvedilol 25 mg tablet See Rx Instructions .Route 01/07/25 02/12/25 Rx .COMPLEX #180 tabs diltiazem HCl 240 mg 240 mg PO DAILY #30 caps 01/31/25 02/21/25 Rx capsule,extended release 24 hr doxazosin 8 mg tablet 8 mg PO QPM 02/12/25 02/21/25 History Patient hx anesthesia problems: none Family hx anesthesia problems: none Results Review: All pre-operative results and documents have been reviewed as part of the pre-operative evaluation. [facility] Past Medical History Medical History Polyposis of colon FHx: mitral valve repair Chronic lupus nephritis Colon polyps Diarrhea Rectal bleeding History of kidney disease Allergies Screening mammogram, encounter for Dialysis patient renal failure History of endometrial biopsy (~01/23/16) menometrorrhagia Anemia Trichomonas vaginalis (TV) infection (05/04/16) High cholesterol HPV in female Abnormal Pap smear of cervix 07/14/15 lgsil ; 05/08/14 lgsil; 10/16/12 ASCUS / +HPV Hx of blood clots (~12/2012) 3 rt leg, 2 rt arm History of 2019 novel coronavirus disease (COVID-19) Chronic kidney disease, stage 5, kidney failure Glomerular disorders in diseases classified elsewhere Hypertensive chronic kidney disease with stage 1 through stage 4 chronic kidney disease, or unspecified chronic kidney disease Intractable migraine without aura and without status migrainosus Surgical History Surgical History History of total hysterectomy February 2017 History of elective x2 History of robot-assisted laparoscopic hysterectomy RA TLH w/RSO--HGSIL, ovarian cyst, leiomyoma H/O LEEP 12/31/15 HGSIL TRAVIS II History of dilation and curettage (08/03/15) hscope d&c/Novasure endometrial ablation History of endometrial ablation (08/03/15) hscope d&c/Novasure endometrial ablation History of left salpingo-oophorectomy (08/31/15) EXP LAP, LSO, ADHESIOLYSIS left dermoid cyst, left & right hydrosalpinx History of colposcopy with cervical biopsy 12/13/12 TRAVIS I 09/02/15 TRAVIS II 12/09/15 HGSIL History of ovarian cystectomy (07/11/07) EXP LAP; RIGHT OVARIAN CYSTECTOMY, R PARTIAL SALPINGECTOMY - R Ovarian Cyst, R hydrosalpinx History of laparoscopy (03/23/05) dx lap, chromopertubation - bilateral salpinx, pelvic adhesions, left ovarian enlargement, bilaterally blocked fallopian tubes Kidney transplant recipient (~08/2019) Family History Family History Mother Hypertension Father Family history of type 2 diabetes mellitus Family history of heart disease in male family member before age 55 Cerebrovascular accident Hypertension Diabetes mellitus Other Cancer Diabetes mellitus Hypertension Family history of heart disease in male family member before age 55 Social History Social History Smoking status: Never smoker Second hand tobacco smoke exposure: Yes Alcohol intake: never Substance use: never Substance use type: does not use Do You Feel Safe in your Home?: Yes Lack of Transportation: No Lack of Food: Never True Current Housing: I Have Housing Concerned About Future Housing: No Difficulty Paying Gas/Electric Bills: No Difficulty Paying for Meds: No Currently Unemployed: No Education: Decline to Answer Difficulty w/ Childcare or Family Care: Decline to Answer Living arrangements: alone Additional living arrangements comments: Occupation/Education: occupation 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[employer] Gender identity (if verbalized by the patient): Female Sexual Orientation (if Verbalized by the Patient): Straight or Heterosexual Spiritual care concerns: No Anes - Eval Final PreProcedure Day of Procedure 02/21/25 09:38 Patient weight: normal Heart: regular rate and rhythm Lungs: clear to auscultation Airway: Mallampati scale class II Neurological: alert and oriented Last oral intake: >/= 8 hours ASA classification: IV Emergent: no Anesthesia type and monitoring: general GIVS and standard monitoring Results Review: All pre-operative results and documents have been reviewed as part of the pre-operative evaluation. Informed Consent: The patient's anesthetic plan and its attendant risks and benefits were discussed with the patient/family/POA. Questions were solicited and answers provided to the satisfaction of the patient/family/POA.
[2025-02-21] MEDS: SODIUM CHLORIDE 0.9% IV 500 ML 10 ML IV CONT (09:42)
[2025-02-21 10:28] VITALS: BP 113/60; PULSE 78; RESP 19; O2SAT 100
[2025-02-21 10:38] VITALS: BP 111/63; PULSE 73; RESP 18; O2SAT 100
[2025-02-21 10:48] VITALS: BP 116/67; PULSE 77; RESP 19; O2SAT 100
== END 2025-02-21 11:26 | disposition home or self-care (01) ==
PROVIDERS: PCP Internal Medicine; Visit Provider Internal Medicine Gastroenterology
PROC: 0DJD8ZZ Inspection of Lower Intestinal Tract, Via Natural or Artificial Opening Endoscopic (ICD-10-PCS; CPT 45378; principal; 2025-02-21 10:00)
DX: Z09 Encounter for follow-up examination after completed treatment for conditions other than malignant neoplasm (principal); D12.3 Benign neoplasm of transverse colon; D64.9 Anemia, unspecified; E78.00 Pure hypercholesterolemia, unspecified; I12.0 Hypertensive chronic kidney disease with stage 5 chronic kidney disease or end stage renal disease; N18.5 Chronic kidney disease, stage 5; M32.14 Glomerular disease in systemic lupus erythematosus; Z79.52 Long term (current) use of systemic steroids; Z98.890 Other specified postprocedural states; Z99.2 Dependence on renal dialysis; Z94.0 Kidney transplant status; Z98.891 History of uterine scar from previous surgery; Z80.9 Family history of malignant neoplasm, unspecified; Z82.49 Family history of ischemic heart disease and other diseases of the circulatory system
CPT/HCPCS: 45385; 88305; J0290; J2003; J2371; J2704; J7040

== ENCOUNTER 2025-07-01 13:30 | Outpatient (RCR) | payer MEDICARE, BC, SELFPAY ==
[2025-03-04 11:46] VITALS: PULSE 66
== END 2025-07-01 23:59 | disposition home or self-care (01) ==
LOC: ANHCPREHAB 13:30
PROVIDERS: PCP Internal Medicine; Visit Provider Internal Medicine
DX: Z95.2 Presence of prosthetic heart valve (principal)
CPT/HCPCS: 93798

== ENCOUNTER 2025-07-08 07:00 | Outpatient (RCR) | payer MEDICARE, BC, SELFPAY ==
[2025-07-03 00:04] VITALS: PULSE 66
== END 2025-10-21 09:53 | disposition home or self-care (01) ==
LOC: ANHCPREHAB 07:00
PROVIDERS: PCP Internal Medicine; Visit Provider Internal Medicine
DX: Z95.2 Presence of prosthetic heart valve (principal)
CPT/HCPCS: 93798